=== PATIENT | female | born 1940 | race Caucasian/White ===

== ENCOUNTER 2016-10-23 15:46 | Emergency (ER) | payer OTHER ==
[~2016-10-23] VITALS: Ht 165.1 cm; Wt 60.9 kg
[~2016-10-23 15:46] MED LIST: ASCA500 PO; ATOR-24 PO; CALC600T14 PO; CYAN10005 PO; DXY100 PO; FSM70 PO; METH500T PO; METO50TA7 PO; MULT-190 PO
[2016-10-23 15:55] VITALS: TEMP 36.8; Ht 165.1 cm; Wt 60.9 kg
[2016-10-23 16:29] LABS: BASO % 0.2 %; BASO ABS # 0.02 K/uL (0-0.2); COMPLETE YES; EOS % 1.8 %; IG% 0.1 %; LYMPH % 18.9 %; LYMPH ABS # 1.62 K/uL (1.2-3.4); MEAN CELL VOLUME 96.3 fL (80-100); MEAN CORPUSCULAR HEMOGLOBIN 32.6 pg (25-34); MEAN CORPUSCULAR HGB CONC 33.8 g/dl (32-36); MEAN PLATELET VOLUME 10.1 fL (7.4-10.4); MONO % 8.4 %; NEUT % 70.6 %; PLATELET COUNT 181 K/uL (130-400); RED BLOOD COUNT 4.36 M/uL (4.2-5.4); WHITE BLOOD COUNT 8.56 K/uL (4.8-10.8)
[2016-10-23 16:48] LABS: BUN/CREATININE RATIO 28.1 (10-20); CALCIUM 9.5 mg/dl (8.5-10.1); CREATININE 0.65 mg/dl (0.60-1.20); POTASSIUM 4.1 mmol/L (3.5-5.1)
[2016-10-23] MEDS ORDERED: ASCO500T16 PO (16:49)
[2016-10-23 16:50] LABS: ALB/GLOB RATIO 1.1 (0.9-2)
[2016-10-23] MEDS ORDERED: DOCU-94 PO (16:51)
[2016-10-23] MEDS ORDERED: ASPI-232 PO (16:51)
[2016-10-23] MEDS ORDERED: SODIUM CHLORIDE 0.9% 500ML 500 ML IV STA (17:21)
[2016-10-23 18:07] LABS: URINE APPEARANCE CLEAR (CLEAR); URINE BILIRUBIN NEG (NEG); URINE COLOR YELLOW; URINE NITRITE NEG (NEG); URINE SPECIFIC GRAVITY 1.009 (1.000-1.030); UROBILINOGEN NEG (NEG); ZZUR CULT IF INDIC CLEAN CATCH NO
[2016-10-23 18:17] LABS: MANUAL MICROSCOPIC REQUIRED? NO; REVIEW REQ? NO
--- NOTE | 2016-10-23 18:46 | DIAGNOSTIC IMAGING REPORT ---
CT OF THE CERVICAL SPINE WITHOUT CONTRAST CLINICAL HISTORY: Neck pain. COMPARISON STUDY: No previous studies for comparison. TECHNIQUE: Helical axial images of the cervical spine were obtained without IV contrast. Sagittal and coronal reconstructions were viewed. FINDINGS: No acute fracture is identified. No suspicious osseous lesion is identified by CT. There is slight anterolisthesis of C3 on C4. The central canal and neural foramen are suboptimally assessed by CT. There is no evidence of severe central canal stenosis. There is mild to moderate multilevel degenerative disc disease and facet arthrosis. There is no prevertebral edema. IMPRESSION: 1. No acute cervical spine fracture or subluxation. 2. Mild to moderate multilevel degenerative disc disease and facet arthrosis of the cervical spine. Suboptimal evaluation of the central canal no evidence for severe central canal stenosis. Electronically signed by: Froylan Frank M.D. 10/23/2016 6:44 PM Dictated Date/Time: 10/23/2016 6:42 PM
[2016-10-23 20:57] VITALS: BP 173/89; PULSE 81; O2SAT 95
--- NOTE | 2016-10-24 00:22 | EMERGENCY ROOM VISIT NOTE ---
History Report prepared by Bijan: Isacc Dempsey Under the Supervision of: Dr. Pete Swenson M.D. First contact with patient: 16:52 Chief Complaint: WEAKNESS Stated Complaint: HEAVY ARMS, WEAKNESS, TIGHTNESS AROUND JAW/NECK Nursing Triage Summary: pt states she has a bad neck, she has episodes of generalized upper extremity weakness and heaviness, pt denies any pain, this episode started at 1330 History of Present Illness The patient is a 75 year old female who presents to the Emergency Room with complaints of intermittent bilateral arm weakness beginning one week prior to arrival. She describes her weakness as heaviness. The patient states she has had two episodes over the past week of bilateral arm heaviness. She notes the episodes last for 30 minutes, and her last episode occurred two hours ago while driving home. The patient denies doing anything out of the ordinary to onset her symptoms. She explains that she feels "washed out". The patient states she has a history of intermittent neck pressure in the back of her neck for 4-5 years. She notes she occasionally experiences chills and shakiness with her episodes of arm heaviness. The patient states she recently was treated for a UTI two weeks ago, in which, she finished her antibiotics a week ago. She notes she does not have a heart history other than high cholesterol, but her mother at the age of 39 from a heart attack. The patient denies seeing a provider for her bilateral arm weakness. Pt denies recent long travel, sick contact, swelling of the legs, LOC, headache, fevers, diaphoresis, visual changes, chest pain, breathing difficulties, nausea, vomiting, abdominal pain, back pain, melena, hematochezia, urinary symptoms, numbness, lymphadenopathy, rash, or other complaints. 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 Review of Systems See HPI for pertinent positives and negatives. A total of ten systems were reviewed and were otherwise negative. Past Medical & Surgical Medical Problems: (1) Asthma (2) Bronchitis (3) Cataract (4) Hyperlipidemia (5) Skin cancer of nose Family History Heart disease Social History Smoking Status: Former Smoker Marital Status: Housing Status: lives alone Occupation Status: retired Current/Historical Medications Scheduled Ascorbic Acid (Ascorbic Acid), 500 MG PO DAILY Aspirin (Aspir-81), 1 TAB PO DAILY Atorvastatin (Lipitor), 1 TAB PO DAILY Docusate Sodium (Colace), 1 CAP PO BID Metoprolol Succ (Toprol Xl) (Toprol-Xl), 1 TAB PO DAILY Ocuvite Preservision (Ocuvite Preservision), 1 TAB PO DAILY Allergies Coded Allergies: Penicillins (Unverified Allergy, Severe, UNKNOWN, 10/23/16) Physical Exam Vital Signs Date Time Temp Pulse Resp B/P Pulse Ox O2 Delivery O2 Flow Rate FiO2 10/23/16 20:57 81 18 173/89 95 10/23/16 20:33 80 14 154/71 96 Room Air 10/23/16 19:13 81 12 138/76 95 Room Air 10/23/16 17:34 85 15 163/79 97 Room Air 10/23/16 16:16 82 10/23/16 15:55 36.8 83 18 168/82 95 Room Air Physical Exam GENERAL: Awake, alert, well-appearing, in no distress HENT: Normocephalic, atraumatic. Oropharynx unremarkable. EYES: Normal conjunctiva. Sclera non-icteric. NECK: Supple. No nuchal rigidity. FROM. No JVD. RESPIRATORY: Clear to auscultation. CARDIAC: Regular rate, normal rhythm. Extremities warm and well perfused. Pulses equal. ABDOMEN: Soft, non-distended. No tenderness to palpation. No rebound or guarding. No masses. RECTAL: Deferred. MUSCULOSKELETAL: Chest examination reveals no tenderness. The back is symmetrical on inspection without obvious abnormality. There is no CVA tenderness to palpation. No joint edema. LOWER EXTREMITIES: Calves are equal size bilaterally and non-tender. No edema. No discoloration. NEURO: Normal sensorium. No sensory or motor deficits noted. SKIN: No rash or jaundice noted. Medical Decision & Procedures ER Provider Diagnostic Interpretation: CT: Radiology results as stated below per my review and radiologist interpretation CT OF THE CERVICAL SPINE WITHOUT CONTRAST CLINICAL HISTORY: Neck pain. COMPARISON STUDY: No previous studies for comparison. TECHNIQUE: Helical axial images of the cervical spine were obtained without IV contrast. Sagittal and coronal reconstructions were viewed. FINDINGS: No acute fracture is identified. No suspicious osseous lesion is identified by CT. There is slight anterolisthesis of C3 on C4. The central canal and neural foramen are suboptimally assessed by CT. There is no evidence of severe central canal stenosis. There is mild to moderate multilevel degenerative disc disease and facet arthrosis. There is no prevertebral edema. IMPRESSION: 1. No acute cervical spine fracture or subluxation. 2. Mild to moderate multilevel degenerative disc disease and facet arthrosis of the cervical spine. Suboptimal evaluation of the central canal no evidence for severe central canal stenosis. Electronically signed by: Froylan Frank M.D. 10/23/2016 6:44 PM Laboratory Results 10/23/16 16:15 Red Blood Count 4.36, Mean Corpuscular Volume 96.3, Mean Corpuscular Hemoglobin 32.6, Mean Corpuscular Hemoglobin Concent 33.8, Mean Platelet Volume 10.1, Neutrophils (%) (Auto) 70.6, Lymphocytes (%) (Auto) 18.9, Monocytes (%) (Auto) 8.4, Eosinophils (%) (Auto) 1.8, Basophils (%) (Auto) 0.2, Neutrophils # (Auto) 6.04, Lymphocytes # (Auto) 1.62, Monocytes # (Auto) 0.72, Eosinophils # (Auto) 0.15, Basophils # (Auto) 0.02 10/23/16 16:15 Test 10/23/16 16:15 10/23/16 17:36 White Blood Count 8.56 K/uL (4.8-10.8) Red Blood Count 4.36 M/uL (4.2-5.4) Hemoglobin 14.2 g/dL (12.0-16.0) Hematocrit 42.0 % (37-47) Mean Corpuscular Volume 96.3 fL (80-100) Mean Corpuscular Hemoglobin 32.6 pg (25-34) Mean Corpuscular Hemoglobin Concent 33.8 g/dl (32-36) Platelet Count 181 K/uL (130-400) Mean Platelet Volume 10.1 fL (7.4-10.4) Neutrophils (%) (Auto) 70.6 % Lymphocytes (%) (Auto) 18.9 % Monocytes (%) (Auto) 8.4 % Eosinophils (%) (Auto) 1.8 % Basophils (%) (Auto) 0.2 % Neutrophils # (Auto) 6.04 K/uL (1.4-6.5) Lymphocytes # (Auto) 1.62 K/uL (1.2-3.4) Monocytes # (Auto) 0.72 K/uL (0.11-0.59) Eosinophils # (Auto) 0.15 K/uL (0-0.5) Basophils # (Auto) 0.02 K/uL (0-0.2) RDW Standard Deviation 47.1 fL (36.4-46.3) RDW Coefficient of Variation 13.4 % (11.5-14.5) Immature Granulocyte % (Auto) 0.1 % Immature Granulocyte # (Auto) 0.01 K/uL (0.00-0.02) Anion Gap 4.0 mmol/L (3-11) Est Creatinine Clear Calc Drug Dose 66.3 ml/min Estimated GFR () 100.0 Estimated GFR (Non- 86.2 BUN/Creatinine Ratio 28.1 (10-20) Calcium Level 9.5 mg/dl (8.5-10.1) Total Bilirubin 0.4 mg/dl (0.2-1) Aspartate Amino Transf (AST/SGOT) 30 U/L (15-37) Alanine Aminotransferase (ALT/SGPT) 27 U/L (12-78) Alkaline Phosphatase 80 U/L (45-117) Troponin I < 0.015 ng/ml (0-0.045) Total Protein 7.4 gm/dl (6.4-8.2) Albumin 3.9 gm/dl (3.4-5.0) Globulin 3.5 gm/dl (2.5-4.0) Albumin/Globulin Ratio 1.1 (0.9-2) Urine Color YELLOW Urine Appearance CLEAR (CLEAR) Urine pH 5.0 (4.5-7.5) Urine Specific [place] 1.009 (1.000-1.030) Urine Protein NEG (NEG) Urine Glucose (UA) NEG (NEG) Urine Ketones NEG (NEG) Urine Occult Blood NEG (NEG) Urine Nitrite NEG (NEG) Urine Bilirubin NEG (NEG) Urine Urobilinogen NEG (NEG) Urine Leukocyte Esterase TRACE (NEG) Urine WBC (Auto) 1-5 /hpf (0-5) Urine RBC (Auto) 0-4 /hpf (0-4) Urine Hyaline Casts (Auto) 1-5 /lpf (0-5) Urine Epithelial Cells (Auto) 5-10 /lpf (0-5) Urine Bacteria (Auto) NEG (NEG) Laboratory results reviewed by me Medications Administered Medications (Trade) Dose Ordered Sig/Cheryl Route Start Time Stop Time Status Last Admin Dose Admin Sodium Chloride (Nss 500ml) 500 ml @ 999 mls/hr Q31M STAT IV 10/23/16 17:21 10/23/16 17:51 DC 10/23/16 17:33 999 MLS/HR ECG Indication: weakness Rate (beats per minute): 76 Rhythm: normal sinus Findings: no acute ischemic change, no ectopy ED Course 1715: The patient was evaluated in room A12B. A complete history and physical exam was performed. 1720: Ordered Sodium Chloride 500 ml @ 999 mls/hr IV. 1899: Reevaluated the patient at this time, and she is doing well. 2049: I reevaluated the patient. Discussed results and discharge instructions: She verbalized understanding and agreement. The patient is ready for discharge. Medical Decision Triage Nursing notes reviewed. The patient's presentation and history were concerning for neck pain, weakness, arm heaviness, and malaise. Etiologies such as cervical disc disease, dehydration, metabolic, infection, hypo/hyperglycemia, electrolyte abnormalities, cardiac sources, intracerebral event, toxicologic, neurologic, as well as others were entertained. The patient was evaluated. Clinically she was doing well. She had a nonfocal neurologic examination. Her neck examination was unremarkable as well. ECG was nonischemic. The patient never complained of any chest pain. She noted discomfort in her neck which has been on and off for several years. She had 2 recent episodes that made her more concerned. She had an unremarkable CBC and chemistry panel except for mild dehydration. The patient was hydrated. She admits to having decreased intake today but had no particular reason for this. She had an unremarkable urinalysis. Normal cardiac markers. CT imaging of her neck showed degenerative changes but no bony destruction. The patient has no fever. She is mildly hypertensive. Clinically she looks well. I discussed treatment options and reviewed the limitations for cardiac workup. As the patient is asymptomatic now and feels well and I discussed treatment in and out of the hospital. The patient prefers to be discharged to follow-up as an outpatient. If she worsens in any way she will come back to the Emergency Room for reevaluation. I did spend a significant amount of time reviewing the results as well as follow-up plans and symptoms to watch out for. I gave my usual and customary discussion regarding this issue. By the evaluation outlined above other emergent etiologies such as those listed in the differential, as well as others, were deemed relatively unlikely. The patient and significant other were informed about the findings as listed above. All questions were answered and they were pleased with the treatment. Return instructions were outlined and the patient was discharged in stable condition. The patient was referred to her PCP for follow-up Wednesday for a recheck of the current condition. The chart was completed utilizing [employer] Speech voice recognition software. Grammatical errors, random word insertions, pronoun errors, and incomplete sentences are an occasional consequence of this system due to software limitations, ambient noise, and hardware issues. Any formal questions or concerns about the content, text, or information contained within the body of this dictation should be directly addressed to the physician for clarification. Impression Primary Impression: Weakness Additional Impression: Degenerative disc disease, cervical Scribe Attestation The scribe's documentation has been prepared under my direction and personally reviewed by me in its entirety. I confirm that the note above accurately reflects all work, treatment, procedures, and medical decision making performed by me. Departure Information Dispostion Home / Self-Care Referrals No Doctor, Assigned (PCP) Forms HOME CARE DOCUMENTATION FORM, IMPORTANT VISIT INFORMATION Patient Instructions My [facility] Additional Instructions Rest and drink plenty of fluids. Tylenol: Take 1000 mg every 6 hours as needed for pain. Do not take more than 3000 mg in a 24 hour period. Warm compresses for 20 minutes at a time four times daily for 2-3 days. No heavy lifting or physical exertion until seen by family doctor on Wednesday. Call Wednesday morning for follow-up appointment. Return to the ER for severe neck pain, chest pain, weakness, headache, passing out, difficulty breathing, fevers, numbness, tingling, worsening of your condition, or as needed. Problem Qualifiers
== END 2016-10-23 20:59 | disposition home or self-care (01) ==
LOC: C.EDB 15:47 → C.EDA 20:59
DX: R53.1 Weakness (principal); M50.30 Other cervical disc degeneration, unspecified cervical region; E78.5 Hyperlipidemia, unspecified; J45.909 Unspecified asthma, uncomplicated; Z85.828 Personal history of other malignant neoplasm of skin; Z98.49 Cataract extraction status, unspecified eye; Z87.891 Personal history of nicotine dependence; Z79.82 Long term (current) use of aspirin; Z79.899 Other long term (current) drug therapy; Z88.0 Allergy status to penicillin; Z82.49 Family history of ischemic heart disease and other diseases of the circulatory system

== ENCOUNTER 2023-11-10 18:41 | Inpatient (IN) ==
[2023-11-10 19:41] LABS: Basophils # (auto) 0.02 K/uL (0.00-0.20); Basophils % (auto) 0.3 %; Eosinophils # (auto) 0.13 K/uL (0.00-0.50); Eosinophils % (auto) 1.7 %; Hematocrit (blood only) 39.2 % (37.0-47.0); Hemoglobin 13.4 g/dl (12.0-16.0); Immature Granulocytes # (auto) 0.04 K/uL (0.01-0.20); Immature Granulocytes % (auto) 0.5 %; Lymphocytes # (auto) 1.63 K/uL (1.20-3.40); Lymphocytes % (auto) 20.8 %; Mean Corpuscular Hemoglobin 32.3 pg (25.0-34.0); Mean Corpuscular Hgb Conc 34.2 g/dL (32.0-36.0); Mean Corpuscular Volume 94.5 fL (80.0-100.0); Mean Platelet Volume 9.9 fL (9.4-12.4); Monocytes # (auto) 0.89 K/uL (0.11-0.59); Monocytes % (auto) 11.4 %; Neutrophils # (auto) 5.12 K/uL (1.40-6.50); Neutrophils % (auto) 65.3 %; Platelet Count 200 K/uL (130-400); RDW Coefficient of Variation 13.7 % (11.5-14.5); RDW Standard Deviation 47.9 fL (36.4-46.3); Red Blood Count 4.15 M/uL (4.20-5.40); White Blood Count 7.83 K/ul (4.8-10.8)
[2023-11-10 19:48] LABS: Appearance Urine Cloudy (Clear); Bacteria Urine Automated None Seen (None Seen); Bilirubin Urine Negative (Negative); Blood Urine 2+ (Negative); Color Urine Yellow; Glucose Urine UA Negative (Negative); Ketones Urine Negative (Negative); Leukocyte Esterase Urine 3+ (Negative); Nitrite Urine Negative (Negative); Protein Urine Negative (Negative); Urobilinogen Urine Negative (Negative); WBC Urine Automated >50 /hpf (0-5)
[2023-11-10 19:57] LABS: Albumin Level 3.9 gm/dl (3.4-5.0); BUN Creatinine Ratio 24.6 (10-20); Bilirubin Direct 0.2 mg/dl (0-0.2); Bilirubin,Total 0.8 mg/dl (0.2-1.0); Calcium 9.3 mg/dl (8.6-10.3); Creatinine Clr Calc Pharmacy 61.6 ml/min; Est GFR (African American) 99.4 ml/min; Est GFR (Non-African American) 85.7 ml/min; Magnesium 1.8 mg/dl (1.7-2.4); Potassium 3.8 mmol/L (3.5-5.1); Total Protein 7.2 gm/dl (6.0-8.3)
[2023-11-10 20:01] LABS: Base Excess VBG 2.6 mEq/L; HCO3 VBG 27 mmol/L; Oxygen Saturation VBG 71.1 %; PCO2 VBG 41 mmHg (38-50); PO2 VBG 40 mmHg; pH VBG 7.43 (7.36-7.41)
[2023-11-10 20:17] LABS: INR 1.1 (0.9-1.1); Partial Thromboplastin Ratio 0.9; Partial Thromboplastin Time 25 Seconds (21-31); Prothrombin Time 11.5 Seconds (9.0-12.0)
--- NOTE | 2023-11-10 20:51 | CT Scan Report ---
Exam(s): CT HEAD Without Contrast EXAM: CT Head Without Intravenous Contrast CLINICAL HISTORY: Reason for exam: ams. TECHNIQUE: Axial computed tomography images of the head/brain without intravenous contrast. CTDI is 37.61 mGy and DLP is 624.41 mGy-cm. Automated exposure control was utilized for the study. A dose lowering technique was utilized adhering to the principles of ALARA. COMPARISON: No relevant prior studies available. FINDINGS: No acute intracranial hemorrhage. No midline shift or mass effect. The territorial wilburn-white matter differentiation is maintained throughout. Age-related cerebral volume loss. Periventricular and subcortical white matter hypoattenuation, consistent with chronic microangiopathy. The visualized orbits appear grossly unremarkable. The calvarium is intact. The visualized paranasal sinuses and mastoid air cells are grossly clear. IMPRESSION: No acute intracranial hemorrhage, midline shift, or mass effect. Electronically signed by: Bean Almaguer MD 11/10/23 20:50 PM
--- NOTE | 2023-11-10 21:23 | Emergency Department Note ---
History of Present Illness General Chief complaint: Head Injury, Minor Stated complaint: LIGHTHEADED, VISION PROBLEMS, HEADACHES, SPEACH Time Seen by Provider: 11/10/23 18:50 Source: patient and family (Son at bedside) History of Present Illness Provider complaint: Headache difficulty speaking 82-year-old female presents emergency department for headache and difficulty speaking. Patient's son states that over the last 2 days patient has been increasingly weak and lightheaded. Patient reports she had a headache starting 2 days ago. Son reports that the patient has had some expressive aphasia over the last 2 days lasting a few minutes to an hour and then resolving. Patient reports nausea. Son states he is concerned the patient might be dehydrated or have another UTI. Patient states she has had multiple UTIs over the last 3 months and that she just finished a course of Keflex for UTI 2 days ago. Home Medications Medication Instructions Recorded Confirmed Type albuterol sulfate 90 mcg/actuation 2 puff inhalation QID Shortness Of 06/27/18 11/10/23 History aerosol inhaler (ProAir HFA) Breath aspirin 81 mg tablet,delayed 81 mg PO HS 06/27/18 11/10/23 History release vitamins A,C,Z-vala-hldrwz 2,148 1 tab PO BID 06/27/18 11/10/23 History mcg-113 mg-45 mg-17.4 mg tablet (PreserVision AREDS) hydrochlorothiazide 12.5 mg tablet 12.5 mg PO QAM 03/09/19 11/10/23 History cholecalciferol (vitamin D3) 25 25 mcg PO QAM 04/01/21 11/10/23 History mcg (1,000 unit) capsule (Vitamin D3) faricimab-svoa 6 mg/0.05 mL 6 mg intravitreal .Q6WK 10/03/23 11/10/23 History intravitreal solution (Vabysmo) losartan 25 mg tablet 25 mg PO QAM 10/03/23 11/10/23 History metoprolol succinate 50 mg See Rx Instructions .Route .COMPLEX 10/03/23 11/10/23 History tablet,extended release 24 hr naproxen sodium 220 mg tablet 220 mg PO Q8H PRN Pain 10/03/23 11/10/23 History (Aleve) ondansetron HCl 4 mg tablet 4 mg PO Q6H PRN NAUSEA/VOMITING 10/03/23 11/10/23 History rosuvastatin 40 mg tablet 40 mg PO DAILY 10/03/23 11/10/23 History Allergies Allergy/AdvReac Type Severity Reaction Status Date / Time sulfamethoxazole Allergy Severe Nausea Verified 10/03/23 16:50 [From Bactrim] trimethoprim [From Bactrim] Allergy Severe Nausea Verified 10/03/23 16:50 Penicillins Allergy Intermediate Rash Verified 10/03/23 16:50 nitrofurantoin AdvReac Mild Nausea Verified 10/03/23 16:50 [From Macrobid] Past Med/Surg History Problem List (Updated 11/10/23 @ 21:32 by Merrill Major MD) Brain TIA (Acute) COVID-19 (Acute) Hyperlipidemia (Chronic) Asthma (Chronic) Degenerative disc disease, cervical (Acute) Weakness (Acute) Surgical History No pertinent past surgical history Family History Mother Myocardial infarction Son Stroke Social History Smoking Status: Former smoker Tobacco Type: Cigarettes Preferred Language: Algerian marital status: current occupational status: retired Feels Safe at Home: Yes Physical Exam Vital Signs Vital Signs - 24 hr 11/10/23 18:42 11/10/23 18:44 11/10/23 18:53 Temperature 36.8 C Temperature Source Temporal Artery Scan Pulse Rate 89 77 Pulse Rate [Apical] 77 Pulse Rhythm Regular Pulse Rhythm [Apical] Regular Pulse Strength [Apical] Normal Respiratory Rate 16 19 16 Respiratory Effort / Characteristics Non-Labored Respiratory Depth Normal Respiratory Pattern Regular Blood Pressure 177/89 H Blood Pressure [Left Arm] 166/89 H Blood Pressure Mean 118 Blood Pressure Mean [Left Arm] 114 Blood Pressure Position [Left Arm] Semi-fowlers Pulse Oximetry 95 94 96 Oxygen Delivery Method Room Air Room Air Room Air Sepsis Recent Fever Within 48 Hours No Sepsis New/Unexplained Change in Mental Status N/A Sepsis Action Taken by Nursing No Action Required 11/10/23 19:00 11/10/23 19:30 Temperature Temperature Source Pulse Rate 140 H 78 Pulse Rate [Apical] Pulse Rhythm Pulse Rhythm [Apical] Pulse Strength [Apical] Respiratory Rate Respiratory Effort / Characteristics Respiratory Depth Respiratory Pattern Blood Pressure Blood Pressure [Left Arm] Blood Pressure Mean Blood Pressure Mean [Left Arm] Blood Pressure Position [Left Arm] Pulse Oximetry Oxygen Delivery Method Sepsis Recent Fever Within 48 Hours Sepsis New/Unexplained Change in Mental Status Sepsis Action Taken by Nursing Physical Exam GENERAL: She is oriented to person, place, and time. She appears well-developed and well-nourished. She does not appear distressed. HENT: Exam performed. -Head: Normocephalic and atraumatic. -Right Ear: External ear normal. No mastoid erythema -Left Ear: External ear normal. No mastoid erythema -Mouth/Throat: The oropharynx is clear and moist. No trismus in the jaw. No dental abscesses or uvula swelling. No oropharyngeal exudate or tonsillar abscesses. EYES: Conjunctivae and EOM are normal. Pupils are equal, round, and reactive to light. Right eye exhibits no discharge. Left eye exhibits no discharge. No scleral icterus. NECK: Normal range of motion. Neck supple. No JVD present. No spinous process tenderness present. No carotid bruit present. No rigidity. No tracheal deviation and normal range of motion present CV: Normal rate, regular rhythm, normal heart sounds and intact distal pulses. There is no peripheral edema. Palpable radial pulses bue. PULM/CHEST: Effort normal and breath sounds normal. No respiratory distress. No stridor. She has no wheezes. She has no rales. -Chest Wall: She exhibits no tenderness. ABD: The abdomen is soft. Bowel sounds are normal. She has no distension. No mass is present. There is no tenderness. There is no rebound, no guarding, no Webster's sign and no tenderness at McBurney's point. Rovsig negative MUSC/SKEL: Normal range of motion. There is no peripheral edema, tenderness or deformity. LYMPH: No cervical adenopathy. NEURO: She is alert and oriented to person, place, and time. She has normal strength. No cranial nerve deficit or sensory deficit. Coordination and gait normal. GCS eye subscore is 4. GCS verbal subscore is 5. GCS motor subscore is 6. Cerebellar tests wnl. NIHSS 0 SKIN: Skin is warm and dry. She is not diaphoretic. PSYCH: She has a normal mood and affect. Behavior is normal. Judgment and thought content normal. Course Course 1850: The patient was evaluated in room C9. A complete history and physical exam was performed Cardiac monitoring: An order was placed for continuous cardiac monitoring. The monitor shows a rate of 80 with sinus rhythm interpreted by me 2115: Vital signs stable. Labs and imaging within normal limits. No dehydration as the patient and family are concerned. Urinalysis does not show any bacteria. CT of the head within normal limits. Patient's expressive aphasia could be due to possible TIA. Discussed with patient and family and they are amenable to inpatient observation to have further MRIs and neurology evaluation. Discussed with Dr. Fung who will evaluate the patient for admission. Medical Decision Making Laboratory Data Attestation: I reviewed the patient's lab results. 11/10/23 19:05 11/10/23 19:05 Lab Results 11/10/23 11/10/23 11/10/23 Range/Units 19:05 19:30 19:51 WBC 7.83 (4.8-10.8) K/ul RBC 4.15 L (4.20-5.40) M/uL Hgb 13.4 (12.0-16.0) g/dl Hct 39.2 (37.0-47.0) % MCV 94.5 (80.0-100.0) fL MCH 32.3 (25.0-34.0) pg MCHC 34.2 (32.0-36.0) g/dL RDW Std Deviation 47.9 H (36.4-46.3) fL RDW Coeff of Sherrill 13.7 (11.5-14.5) % Plt Count 200 (130-400) K/uL MPV 9.9 (9.4-12.4) fL Immature Gran % (Auto) 0.5 % Neut % (Auto) 65.3 % Lymph % (Auto) 20.8 % Cobb % (Auto) 11.4 % Eos % (Auto) 1.7 % Baso % (Auto) 0.3 % Neut # (Auto) 5.12 (1.40-6.50) K/uL Lymph # (Auto) 1.63 (1.20-3.40) K/uL Cobb # (Auto) 0.89 H (0.11-0.59) K/uL Eos # (Auto) 0.13 (0.00-0.50) K/uL Baso # (Auto) 0.02 (0.00-0.20) K/uL Immature Gran # (Auto) 0.04 (0.01-0.20) K/uL PT 11.5 (9.0-12.0) Seconds INR 1.1 (0.9-1.1) APTT 25 (21-31) Seconds PTT Ratio 0.9 VBG pH 7.43 H (7.36-7.41) VBG pCO2 41 (38-50) mmHg VBG pO2 40 mmHg VBG HCO3 27 mmol/L VBG O2 Saturation 71.1 % VBG Base Excess 2.6 mEq/L Sodium 135 L (136-145) mmol/L Potassium 3.8 (3.5-5.1) mmol/L Chloride 103 (98-107) mmol/L Carbon Dioxide 25 (21-32) mmol/L Anion Gap 7 (3-11) BUN 14 (6-23) mg/dl Creatinine 0.57 L (0.6-1.2) mg/dl Est Cr Clr Drug Dosing 61.6 ml/min Est GFR ( Amer) 99.4 ml/min Est GFR (Non-Af Amer) 85.7 ml/min BUN/Creatinine Ratio 24.6 H (10-20) Glucose 101 H (70-99(Fasting)) mg/dl Lactate 1.0 (0.4-2.0) mmol/L Calcium 9.3 (8.6-10.3) mg/dl Magnesium 1.8 (1.7-2.4) mg/dl Total Bilirubin 0.8 (0.2-1.0) mg/dl Direct Bilirubin 0.2 (0-0.2) mg/dl AST 24 (13-39) U/L ALT 11 (7-52) U/L Alkaline Phosphatase 61 (34-104) U/L Troponin I High Sens 8.0 (0-14) pg/ml Total Protein 7.2 (6.0-8.3) gm/dl Albumin 3.9 (3.4-5.0) gm/dl Procalcitonin < 0.02 (0-0.5) ng/ml Urine Color Yellow Urine Appearance Cloudy A (Clear) Urine pH 6.0 (4.5-7.5) Ur Specific Hooper 1.010 (1.000-1.030) Urine Protein Negative (Negative) Urine Glucose (UA) Negative (Negative) Urine Ketones Negative (Negative) Urine Blood 2+ H (Negative) Urine Nitrite Negative (Negative) Urine Bilirubin Negative (Negative) Urine Urobilinogen Negative (Negative) Ur Leukocyte Esterase 3+ H (Negative) Urine WBC (Auto) >50 H (0-5) /hpf Urine RBC (Auto) 11-20 H (0-2) /hpf U Hyaline Cast (Auto) 3-5 H (0-2) /lpf U Epithel Cells (Auto) 3-5 H (0-2) /hpf Urine Bacteria (Auto) None Seen (None Seen) SARS-CoV-2, RNA, NAAT NEGATIVE (NEGATIVE) Imaging Data Attestation: I personally reviewed and interpreted this imaging study as follows: My Impression: Chest x-ray negative. Airway clear. No pneumothorax. No consolidation. No cardiomegaly or cephalization.. No free air under the diaphragm. No fractures of the skeletal structures. Radiologist's Impression: Head CT 11/10/23 18:53 Exam(s): CT HEAD Without Contrast EXAM: CT Head Without Intravenous Contrast CLINICAL HISTORY: Reason for exam: ams. TECHNIQUE: Axial computed tomography images of the head/brain without intravenous contrast. CTDI is 37.61 mGy and DLP is 624.41 mGy-cm. Automated exposure control was utilized for the study. A dose lowering technique was utilized adhering to the principles of ALARA. COMPARISON: No relevant prior studies available. FINDINGS: No acute intracranial hemorrhage. No midline shift or mass effect. The territorial wilburn-white matter differentiation is maintained throughout. Age-related cerebral volume loss. Periventricular and subcortical white matter hypoattenuation, consistent with chronic microangiopathy. The visualized orbits appear grossly unremarkable. The calvarium is intact. The visualized paranasal sinuses and mastoid air cells are grossly clear. IMPRESSION: No acute intracranial hemorrhage, midline shift, or mass effect. Electronically signed by: Bean Almaguer MD 11/10/23 20:50 PM ECG Data Attestation: I personally reviewed and interpreted this ECG as follows: Rate (beats per minute): 82 Rhythm: + normal sinus ECG Intervals/blocks: + Normal IN and + Normal QT-c ECG ST segments: + Normal ST segments Additional Comments: QRS 76 MDM Narrative 1850: The patient was evaluated in room C9. A complete history and physical exam was performed Cardiac monitoring: An order was placed for continuous cardiac monitoring. The monitor shows a rate of 80 with sinus rhythm interpreted by me 2115: Vital signs stable. Labs and imaging within normal limits. No dehydration as the patient and family are concerned. Urinalysis does not show any bacteria. CT of the head within normal limits. Patient's expressive aphasia could be due to possible TIA. Discussed with patient and family and they are amenable to inpatient observation to have further MRIs and neurology evaluation. Discussed with Dr. Fung who will evaluate the patient for admission. Impression & Plan Brain TIA Discharge Plan Visit Data Chief Complaint: Head Injury, Minor Stated Complaint: LIGHTHEADED, VISION PROBLEMS, HEADACHES, SPEACH ED Provider: Merrill Major Discharge Problem: Brain TIA Patient Disposition: Being Evaluated by Hospitalist Forms Stand Alone Forms: [facility] Prescriptions Prescriptions: No Action aspirin 81 mg Tablet,Delayed Release (Dr/Ec) 81 mg PO HS albuterol sulfate [ProAir HFA] 90 mcg/actuation Hfa Aerosol Inhaler 2 puff INHALATION QID Rx Instructions: ordered 11/01/23 take for 16 days PreserVision AREDS [id number] Tablet 1 tab PO BID hydrochlorothiazide 12.5 mg tablet 12.5 mg PO QAM cholecalciferol (vitamin D3) [Vitamin D3] 25 mcg (1,000 unit) Capsule 25 mcg PO QAM metoprolol succinate 50 mg tablet extended release 24 hr See Rx Instructions .ROUTE .COMPLEX Rx Instructions: TAKES 50 MG QAM, THEN 25 MG QPM. ondansetron HCl 4 mg tablet 4 mg PO Q6H PRN (Reason: NAUSEA/VOMITING) naproxen sodium [Aleve] 220 mg Tablet 220 mg PO Q8H PRN (Reason: Pain) losartan 25 mg tablet 25 mg PO QAM rosuvastatin 40 mg tablet 40 mg PO DAILY Vabysmo 6 mg/0.05 mL Solution 6 mg INTRAVITREAL .Q6WK Referrals Referrals: Sussy Zhu PA-C [Primary Care Provider] -
[2023-11-10] MEDS: MAGNESIUM SULFATE / D5W 1 GM/100 ML BAG IV ONE (21:37)
[2023-11-10] MEDS: NSS + 20MEQ KCL 20 MEQ/1,000 ML BAG IV ONE (21:38)
--- NOTE | 2023-11-10 22:15 | History & Physical Report ---
Date of Service November 10, 2023 Assessment & Plan (1) Encephalopathy: Plan: Multifactorial Complicated UTI, recurrent disease, no sepsis for now Uncontrolled hypertension Rule out TIA given transient aphasia symptoms ? Possible aspirin failure ? Complicated migraine given headache symptoms valvular heart disease (moderate MR, mild TR) hyperlipidemia, patient statin currently on hold as per patient/son because they are trying to cut down on medications patient "does not need" past tobacco abuse Medical telemetry Urine CS, Ceftriaxone Neurochecks Plavix in addition to aspirin for stroke prevention for possible aspirin failure until stroke ruled out Permissive hypertension until stroke ruled out by MRI brain Additional stroke workup contingent on MRI results Update lipid profile Patient and son educated about need to resume statin Rx given CVA concerns. Patient son adamantly refusing resumption of statin Rx for patient unless MRI shows acute stroke. DVT prophylaxis. Lovenox subcu Full code Patient son requesting updates from providers. Mr. Tanner Garcia, contact #[phone]. Text document was generated using [employer] voice recognition software. It may contain grammatical or spelling errors. Kindly contact undersigned for clarification of any documentation item in question. History of Present Illness Chief Complaint: Headache, trouble finding words Primary Care Provider: Dr. Riddle History obtained from patient, family, and records. Medical history significant for valvular heart disease (moderate MR, mild TR), hypertension, hyperlipidemia, migraine, recurrent UTIs, past tobacco abuse. Patient seen at [facility] ER last month for headache, lethargy, feeling off balance, lightheadedness symptoms. CT head no acute pathology. Patient discharged on Keflex course for UTI. Patient told to hold off on HCTZ due to lightheaded symptoms on follow-up at PCP's office a week later. Worsening symptoms the last 3 days with intermittent word finding difficulty, new as per son. Transient confusion at home. Denies abdominal pain, flank pain, hematuria, fever, chills. Patient compliant with home aspirin Rx. Patient brought to ER by son for further evaluation. Highest SBP of 160s documented at the ER. Word finding difficulty currently resolved as per son. 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 Allergies Allergy/AdvReac Type Severity Reaction Status Date / Time sulfamethoxazole Allergy Severe Nausea Verified 11/10/23 22:34 [From Bactrim] trimethoprim [From Bactrim] Allergy Severe Nausea Verified 11/10/23 22:34 Penicillins Allergy Intermediate Rash Verified 11/10/23 22:34 nitrofurantoin AdvReac Mild Nausea Verified 11/10/23 22:34 [From Macrobid] Home Medications Medication Instructions Recorded Confirmed Type albuterol sulfate 90 mcg/actuation 2 puff inhalation QID Shortness Of 06/27/18 11/10/23 History aerosol inhaler (ProAir HFA) Breath aspirin 81 mg tablet,delayed 81 mg PO HS 06/27/18 11/10/23 History release vitamins A,C,K-cjym-wjttdw 2,148 1 tab PO BID 06/27/18 11/10/23 History mcg-113 mg-45 mg-17.4 mg tablet (PreserVision AREDS) hydrochlorothiazide 12.5 mg tablet 12.5 mg PO .ON HOLD CURRENTLY 03/09/19 11/10/23 History cholecalciferol (vitamin D3) 25 25 mcg PO QAM 04/01/21 11/10/23 History mcg (1,000 unit) capsule (Vitamin D3) faricimab-svoa 6 mg/0.05 mL 6 mg intravitreal .Q6WK 10/03/23 11/10/23 History intravitreal solution (Vabysmo) losartan 25 mg tablet 25 mg PO QAM 10/03/23 11/10/23 History metoprolol succinate 50 mg See Rx Instructions .Route .COMPLEX 10/03/23 11/10/23 History tablet,extended release 24 hr naproxen sodium 220 mg tablet 220 mg PO Q8H PRN Pain 10/03/23 11/10/23 History (Aleve) ondansetron HCl 4 mg tablet 4 mg PO Q6H PRN NAUSEA/VOMITING 10/03/23 11/10/23 History rosuvastatin 40 mg tablet 40 mg PO .CURRENTLY ON HOLD 10/03/23 11/10/23 History Past Med/Surg History Problem List (Updated 11/11/23 @ 08:08 by Bernard Caruso MD) Encephalopathy Brain TIA (Acute) COVID-19 (Acute) Hyperlipidemia (Chronic) Asthma (Chronic) Degenerative disc disease, cervical (Acute) Weakness (Acute) Surgical History No pertinent past surgical history Family History Mother Myocardial infarction Son Stroke Social History Smoking Status: Former smoker Tobacco Type: Cigarettes Second Hand Exposure: No; Do You Dip or Chew Tobacco: No; Tobacco Cessation Education Requested by Patient: No Hx Alcohol Use: Yes Hx Substance Use: No Preferred Language: Kiswahili Communication Ability: Effective Tube Builder Required: No Beliefs That Will Affect Care: None marital status: Current Living Situation: Alone Current Living Situation Comment: [employer] current occupational status: retired Other Information That Helps Us Care for You: No Feels Safe at Home: Yes Safety Concerns: Feels Safe At This Time Assistive Devices: Walker Review of Systems Review of Systems: As per HPI, all other systems reviewed and negative Physical Exam Physical Exam: GENERAL: Comfortable, pleasant, looks younger for stated age, no respiratory distress SKIN: Normal color, warm HEENT: [place] palpebral conjunctivae, no ptosis, dry buccal mucosa NECK : Supple, no tenderness CHEST : Decreased breath sounds, no tenderness HEART : RRR, systolic murmur ABDOMEN: no distention, nontender EXTREMITIES : No LE swelling/tenderness, no other conspicuous deformities noted NEUROLOGIC : Coherent, no facial asymmetry, gait and stance not assessed Results & Data Results & Data Vital Signs (Past 12 Hours) Vital Signs Temp Pulse Pulse Resp BP BP Pulse Ox 11/10/23 21:40 83 21 95 11/10/23 21:30 159/80 H 11/10/23 21:30 82 18 11/10/23 21:20 80 22 11/10/23 21:16 158/94 H 11/10/23 21:16 84 21 11/10/23 21:10 91 H 18 11/10/23 21:07 182/113 H 11/10/23 21:07 105 H 13 94 11/10/23 21:00 165/84 H 11/10/23 21:00 86 16 94 11/10/23 20:50 82 15 95 11/10/23 20:45 158/86 H 11/10/23 20:45 81 23 95 11/10/23 20:40 85 19 95 11/10/23 20:30 163/84 H 11/10/23 20:30 82 18 95 11/10/23 20:20 82 23 95 11/10/23 20:15 163/86 H 11/10/23 20:15 82 16 94 11/10/23 20:10 81 19 93 11/10/23 20:00 161/87 H 11/10/23 20:00 81 15 95 11/10/23 19:30 78 11/10/23 19:00 140 H 11/10/23 18:53 77 16 96 11/10/23 18:44 36.8 C 89 19 177/89 H 94 11/10/23 18:42 77 16 166/89 H 95 O2 Del Method 11/10/23 21:40 11/10/23 21:30 11/10/23 21:30 11/10/23 21:20 11/10/23 21:16 11/10/23 21:16 11/10/23 21:10 11/10/23 21:07 11/10/23 21:07 11/10/23 21:00 11/10/23 21:00 11/10/23 20:50 11/10/23 20:45 11/10/23 20:45 11/10/23 20:40 11/10/23 20:30 11/10/23 20:30 11/10/23 20:20 11/10/23 20:15 11/10/23 20:15 11/10/23 20:10 11/10/23 20:00 11/10/23 20:00 11/10/23 19:30 11/10/23 19:00 11/10/23 18:53 Room Air 11/10/23 18:44 Room Air 11/10/23 18:42 Room Air Laboratory Results Laboratory Results WBC 7.83 K/ul (4.8-10.8) 11/10/23 19:05 RBC 4.15 M/uL (4.20-5.40) L 11/10/23 19:05 Hgb 13.4 g/dl (12.0-16.0) 11/10/23 19:05 Hct 39.2 % (37.0-47.0) 11/10/23 19:05 MCV 94.5 fL (80.0-100.0) 11/10/23 19:05 MCH 32.3 pg (25.0-34.0) 11/10/23 19:05 MCHC 34.2 g/dL (32.0-36.0) 11/10/23 19:05 RDW Std Deviation 47.9 fL (36.4-46.3) H 11/10/23 19:05 RDW Coeff of Sherrill 13.7 % (11.5-14.5) 11/10/23 19:05 Plt Count 200 K/uL (130-400) 11/10/23 19:05 MPV 9.9 fL (9.4-12.4) 11/10/23 19:05 Immature Gran % (Auto) 0.5 % 11/10/23 19:05 Neut % (Auto) 65.3 % 11/10/23 19:05 Lymph % (Auto) 20.8 % 11/10/23 19:05 [place] % (Auto) 11.4 % 11/10/23 19:05 Eos % (Auto) 1.7 % 11/10/23 19:05 Baso % (Auto) 0.3 % 11/10/23 19:05 Neut # (Auto) 5.12 K/uL (1.40-6.50) 11/10/23 19:05 Lymph # (Auto) 1.63 K/uL (1.20-3.40) 11/10/23 19:05 [place] # (Auto) 0.89 K/uL (0.11-0.59) H 11/10/23 19:05 Eos # (Auto) 0.13 K/uL (0.00-0.50) 11/10/23 19:05 Baso # (Auto) 0.02 K/uL (0.00-0.20) 11/10/23 19:05 Immature Gran # (Auto) 0.04 K/uL (0.01-0.20) 11/10/23 19:05 PT 11.5 Seconds (9.0-12.0) 11/10/23 19:05 INR 1.1 (0.9-1.1) 11/10/23 19:05 APTT 25 Seconds (21-31) 11/10/23 19:05 PTT Ratio 0.9 11/10/23 19:05 VBG pH 7.43 (7.36-7.41) H 11/10/23 19:51 VBG pCO2 41 mmHg (38-50) 11/10/23 19:51 VBG pO2 40 mmHg 11/10/23 19:51 VBG HCO3 27 mmol/L 11/10/23 19:51 VBG O2 Saturation 71.1 % 11/10/23 19:51 VBG Base Excess 2.6 mEq/L 11/10/23 19:51 Sodium 135 mmol/L (136-145) L 11/10/23 19:05 Potassium 3.8 mmol/L (3.5-5.1) 11/10/23 19:05 Chloride 103 mmol/L (98-107) 11/10/23 19:05 Carbon Dioxide 25 mmol/L (21-32) 11/10/23 19:05 Anion Gap 7 (3-11) 11/10/23 19:05 BUN 14 mg/dl (6-23) 11/10/23 19:05 Creatinine 0.57 mg/dl (0.6-1.2) L 11/10/23 19:05 Est Cr Clr Drug Dosing 61.6 ml/min 11/10/23 19:05 Est GFR ( Amer) 99.4 ml/min 11/10/23 19:05 Est GFR (Non-Af Amer) 85.7 ml/min 11/10/23 19:05 BUN/Creatinine Ratio 24.6 (10-20) H 11/10/23 19:05 Glucose 101 mg/dl (70-99(Fasting)) H 11/10/23 19:05 Lactate 1.0 mmol/L (0.4-2.0) 11/10/23 19:05 Calcium 9.3 mg/dl (8.6-10.3) 11/10/23 19:05 Magnesium 1.8 mg/dl (1.7-2.4) 11/10/23 19:05 Total Bilirubin 0.8 mg/dl (0.2-1.0) 11/10/23 19:05 Direct Bilirubin 0.2 mg/dl (0-0.2) 11/10/23 19:05 AST 24 U/L (13-39) 11/10/23 19:05 ALT 11 U/L (7-52) 11/10/23 19:05 Alkaline Phosphatase 61 U/L (34-104) 11/10/23 19:05 Troponin I High Sens 8.0 pg/ml (0-14) 11/10/23 19:05 Total Protein 7.2 gm/dl (6.0-8.3) 11/10/23 19:05 Albumin 3.9 gm/dl (3.4-5.0) 11/10/23 19:05 Procalcitonin < 0.02 ng/ml (0-0.5) 11/10/23 19:05 Urine Color Yellow 11/10/23 19:05 Urine Appearance Cloudy (Clear) A 11/10/23 19:05 Urine pH 6.0 (4.5-7.5) 11/10/23 19:05 Ur Specific [place] 1.010 (1.000-1.030) 11/10/23 19:05 Urine Protein Negative (Negative) 11/10/23 19:05 Urine Glucose (UA) Negative (Negative) 11/10/23 19:05 Urine Ketones Negative (Negative) 11/10/23 19:05 Urine Blood 2+ (Negative) H 11/10/23 19:05 Urine Nitrite Negative (Negative) 11/10/23 19:05 Urine Bilirubin Negative (Negative) 11/10/23 19:05 Urine Urobilinogen Negative (Negative) 11/10/23 19:05 Ur Leukocyte Esterase 3+ (Negative) H 11/10/23 19:05 Urine WBC (Auto) >50 /hpf (0-5) H 11/10/23 19:05 Urine RBC (Auto) 11-20 /hpf (0-2) H 11/10/23 19:05 U Hyaline Cast (Auto) 3-5 /lpf (0-2) H 11/10/23 19:05 U Epithel Cells (Auto) 3-5 /hpf (0-2) H 11/10/23 19:05 Urine Bacteria (Auto) None Seen (None Seen) 11/10/23 19:05 SARS-CoV-2, RNA, NAAT NEGATIVE (NEGATIVE) 11/10/23 19:[address] 11/10/23 18:53 Exam(s): CT HEAD Without Contrast EXAM: CT Head Without Intravenous Contrast CLINICAL HISTORY: Reason for exam: ams. TECHNIQUE: Axial computed tomography images of the head/brain without intravenous contrast. CTDI is 37.61 mGy and DLP is 624.41 mGy-cm. Automated exposure control was utilized for the study. A dose lowering technique was utilized adhering to the principles of ALARA. COMPARISON: No relevant prior studies available. FINDINGS: No acute intracranial hemorrhage. No midline shift or mass effect. The territorial wilburn-white matter differentiation is maintained throughout. Age-related cerebral volume loss. Periventricular and subcortical white matter hypoattenuation, consistent with chronic microangiopathy. The visualized orbits appear grossly unremarkable. The calvarium is intact. The visualized paranasal sinuses and mastoid air cells are grossly clear. IMPRESSION: No acute intracranial hemorrhage, midline shift, or mass effect. Electronically signed by: Bean Almaguer MD 11/10/23 20:50 PM Diagnostic Findings EKG as per my interpretation : Rate 80, NSR, normal axis, no ischemia
[2023-11-10] MEDS ORDERED: PHARMACIST DISCHARGE MED REC CONSULT PRN (22:19)
[2023-11-10] MEDS ORDERED: PROMETHAZINE HCL 6.25 MG in SODIUM CHLORIDE 0.9% 50 ML IV PRN (22:21)
[2023-11-10] MEDS ORDERED: ACETAMINOPHEN 325 MG TAB PO PRN (23:16)
[2023-11-11] MEDS: cefTRIAXone SODIUM 2,000 MG/50 ML BAG IV STA (00:29)
[2023-11-11] MEDS: CLOPIDOGREL BISULFATE 75 MG TAB PO ONE (02:12)
--- NOTE | 2023-11-11 02:18 | Magnetic Resonance Report ---
Exam(s): MRI HEAD Without Contrast EXAM: MR Head Without Intravenous Contrast CLINICAL HISTORY: Reason for exam: tia. TECHNIQUE: Magnetic resonance images of the head/brain without intravenous contrast in multiple planes. COMPARISON: Comparison made to prior head CT from November 10, 2023. FINDINGS: Brain: Mild nonspecific white matter changes. The flow voids at the base of the brain are intact. No mass. No hemorrhage. No acute infarct. Ventricles: Mild ventricular megaly. Bones/joints: Unremarkable. No acute fracture. Sinuses: Unremarkable as visualized. No acute sinusitis. Mastoid air cells: Unremarkable as visualized. No mastoid effusion. Orbits: Bilateral lens replacements. IMPRESSION: No evidence of acute intracranial pathology. Electronically signed by: Inessa Peterson MD 11/11/23 02:17 AM
--- NOTE | 2023-11-11 02:20 | Magnetic Resonance Report ---
Exam(s): MRA HEAD Without Contrast EXAM: MR Angiography Head Without Intravenous Contrast CLINICAL HISTORY: Reason for exam: tia. TECHNIQUE: Magnetic resonance angiography images of the head without intravenous contrast. COMPARISON: No relevant prior studies available. FINDINGS: Right internal carotid artery: No acute findings. Intracranial segment is patent with no significant stenosis. No aneurysm. Right anterior cerebral artery: Unremarkable. No occlusion or significant stenosis. No aneurysm. Right middle cerebral artery: Unremarkable. No occlusion or significant stenosis. No aneurysm. Right posterior cerebral artery: Unremarkable. No occlusion or significant stenosis. No aneurysm. Right vertebral artery: Unremarkable as visualized. Left internal carotid artery: No acute findings. Intracranial segment is patent with no significant stenosis. No aneurysm. Left anterior cerebral artery: Unremarkable. No occlusion or significant stenosis. No aneurysm. Left middle cerebral artery: Unremarkable. No occlusion or significant stenosis. No aneurysm. Left posterior cerebral artery: Unremarkable. No occlusion or significant stenosis. No aneurysm. Left vertebral artery: Unremarkable as visualized. Basilar artery: Unremarkable. No occlusion or significant stenosis. No aneurysm. IMPRESSION: Negative MRA of the brain. Electronically signed by: Inessa Peterson MD 11/11/23 02:19 AM
[2023-11-11 04:43] LABS: Basophils # (auto) 0.03 K/uL (0.00-0.20); Basophils % (auto) 0.4 %; Eosinophils # (auto) 0.22 K/uL (0.00-0.50); Eosinophils % (auto) 2.6 %; Hematocrit (blood only) 36.9 % (37.0-47.0); Hemoglobin 12.4 g/dl (12.0-16.0); Immature Granulocytes # (auto) 0.03 K/uL (0.01-0.20); Immature Granulocytes % (auto) 0.4 %; Lymphocytes # (auto) 1.58 K/uL (1.20-3.40); Lymphocytes % (auto) 18.5 %; Mean Corpuscular Hemoglobin 31.4 pg (25.0-34.0); Mean Corpuscular Hgb Conc 33.6 g/dL (32.0-36.0); Mean Corpuscular Volume 93.4 fL (80.0-100.0); Monocytes # (auto) 0.88 K/uL (0.11-0.59); Monocytes % (auto) 10.3 %; Neutrophils # (auto) 5.79 K/uL (1.40-6.50); Neutrophils % (auto) 67.8 %; Platelet Count 158 K/uL (130-400); RDW Coefficient of Variation 13.4 % (11.5-14.5); Red Blood Count 3.95 M/uL (4.20-5.40); White Blood Count 8.53 K/ul (4.8-10.8)
[2023-11-11 04:55] LABS: BUN Creatinine Ratio 23.4 (10-20); Calcium 8.8 mg/dl (8.6-10.3); Chol HDL Ratio 3.7 (0-5); Creatinine Clr Calc Pharmacy 74.7 ml/min; Est GFR (African American) 105.9 ml/min; Est GFR (Non-African American) 91.3 ml/min; Potassium 3.7 mmol/L (3.5-5.1)
--- NOTE | 2023-11-11 07:03 | XRay Report ---
XR chest 1V portable CLINICAL HISTORY: Sepsis TECHNIQUE: Single frontal radiograph of the chest was obtained. Comparison: Comparison is made to chest radiograph 07/24/2021 FINDINGS: No lines and tubes are seen. Cardiomegaly is noted. Reticular interstitial opacities are seen. Left l eleanor base airspace opacity is noted. No evidence of pleural effusion or pneumothorax. IMPRESSION: Left lung base airspace opacity. This may represent atelectasis, pneumonia, and/or aspiration. ACT 112: Negative or not required by law. Electronically signed by: Carloz Cobos M.D. 11/11/2023 7:01 AM
--- NOTE | 2023-11-11 07:57 | Ultrasound Report ---
BILATERAL CAROTID DOPPLER STUDY HISTORY: tia COMPARISON: None. TECHNIQUE: Real-time, grayscale, and color Doppler sonography of the carotid arteries was performed. Imaging reviewed in the transverse and longitudinal planes. All measurements were calculated based on NASCET criteria. FINDINGS: Antegrade flow is seen in the bilateral vertebral arteries. Mild to moderate calcified plaque within the bilateral carotid bifurcations. The peak systolic velocity within the right ICA is 73 cm/s. The right systolic ratio is 1.1. The peak systolic velocity within the left ICA is 98 cm/s. The left systolic ratio is 1.4. IMPRESSION: No hemodynamically significant stenosis seen within the carotid arteries. ACT 112: Negative or not required by law. Electronically signed by: Hemant Jay M.D. 11/11/2023 7:56 AM
--- NOTE | 2023-11-11 08:02 | Electrocardiogram Report ---
Test Reason : Blood Pressure : / mmHG Vent. Rate : 082 BPM Atrial Rate : 082 BPM P-R Int : 176 ms QRS Dur : 076 ms QT Int : 364 ms P-R-T Axes : 068 035 071 degrees QTc Int : 425 ms Normal sinus rhythm Normal ECG When compared with ECG of 03-OCT-2023 15:43, No significant change was found Confirmed by Mina Davis ([id number]) on 11/11/2023 8:01:34 AM Referred By: REFERRED SELF Confirmed By:Josue Davis
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
--- NOTE | 2023-11-11 11:00 | CT Scan Report ---
CT chest diagnostic wo con CT DOSE: 207.54 mGy.cm CLINICAL HISTORY: 82 years-old Female with r/o pneumonia/aspiration, f/u chest xray. Acute shortness of breath with possible aspiration TECHNIQUE: Multiaxial CT images of the chest were performed without contrast. A dose lowering techni que was utilized adhering to the principles of ALARA. COMPARISON: Chest radiograph 11/10/2023 FINDINGS: Heart is upper limits of normal in size. Mitral and aortic annular and coronary arterial ca lcifications. There is descending thoracic aortic tortuosity. There is prominent calcified plaque at the origin of the celiac trunk and superior mesenteric arteries. While nonspecific mediastinal lympha denopathy with subcarinal lymph node measuring up to 1.6 x 1.2 cm. Emphysema with areas of chronic pleural parenchymal scarring and mild traction bronchiectasis. Bronch ial wall thickening with areas of mucous plugging. No pneumothorax, pleural effusion or overt pulmona ry edema. Scattered bilateral tree in bud nodules. No suspicious pulmonary nodules or masses. Unremar kable soft tissues. No acute fracture. Partially imaged air and fluid-filled 8 cm structure within th e abdominal right upper quadrant extending into the doug hepatis suggestive of a loop of bowel which contain several air filled diverticula. Probable cysts of the left hepatic lobe, 11 mm. Indeterminat e ill-defined isodense 11 mm right hepatic lobe lesion on image 58 series 2. Unremarkable soft tissue s. There is a subacute appearing nondisplaced partially united fracture involving the upper third of the sternal body. IMPRESSION: 1. No pleural effusion or airspace consolidation to suggest pneumonia. 2. Emphysema with chronic fibrosis and bronchiectasis. 3. Probable bronchitis with areas of multifocal mucus plugging and scattered tree-in-bud nodules sugg estive of an infectious or inflammatory bronchiolitis. 4. Mild mediastinal lymphadenopathy, likely reactive. 5. Air and fluid-filled structure within the abdominal right upper quadrant/doug hepatis with air-fi lled diverticula suggestive of a partially imaged loop of bowel. 6. Healing subacute displaced sternal fracture. ACT 112: Negative or not required by law. Electronically signed by: Mathew Bustos M.D. 11/11/2023 10:59 AM
[2023-11-11] MEDS: ENOXAPARIN INJ 30 MG/0.3 ML SYR SQ SCH (11:16)
[2023-11-11] MEDS: METOPROLOL SUCC 25MG EXT REL TAB PO SCH (11:16)
[2023-11-11] MEDS: CLOPIDOGREL BISULFATE 75 MG TAB PO SCH (11:31)
[2023-11-11] MEDS: cefTRIAXone SODIUM 2,000 MG/50 ML BAG IV SCH (20:32)
[2023-11-11] MEDS: ASPIRIN 81 MG ECTAB PO SCH (20:32)
--- OUTSIDE RECORDS SUMMARY | 2023-11-12 03:49 | External Medical Summary | Summary of Care ---
Author Name Unknown Organization [facility] Address [address] [place] [address] Phone [phone] Care Team Providers Care Advisory Application Developer Name Role Phone Seun Riddle DO Primary Care Provider Reason for Visit * Reason Onset Date Comments Order Request 11/05/2023 Encounter Details Date Type Department Care Team (Late st Contact Info) Description 11/05/2023 Telephone Family Practice [facility] [address] [facility] [place] [address] Seun Riddle DO [address] [place] [address] Order Request Allergies Active Allergy Reactions Criticality Noted Date Comments Sulfamethoxazole-Trimethoprim 2019 nausea Nitrofurantoin 2021 nausea Penicillins 03/23/2000 rash Trimethoprim High 04/01/2021 Other reaction(s): Nausea documented as of this encounter (statuses as of 11/09/2023) Medications Medication Sig Dispensed Refills Start Date End Date Status ASPIRIN 81 MG PO TABS one tab by mouth daily 34 5 06/30/2005 Active vitamin c (ASCORBIC ACID) 500 MG Tablet Take 1 Tablet by mouth in the morning. 0 Active Cholecalciferol (VITAMIN D-3) 25 MCG (1000 UT) Capsule Take 1 Capsule by mouth in the morning. 0 Active PreserVision AREDS 2+Multi Vit Oral Capsule 0 Active Losartan Potassium 25 MG Oral Tablet (Cozaar)Indications: HTN, goal below 140/90 take 1 tablet by mouth every morning 90 Tablet 3 11/25/2022 Active Naproxen Sodium 220 MG Oral Tablet as needed. 0 Active Rosuvastatin Calcium 40 MG Oral Tablet (Crestor) Take 1 Tablet by mouth in the morning. 100 Tablet 3 04/01/2023 Active hydroCHLOROthiazide 12.5 MG Oral Tablet (Hydrodiuril) take 1 tablet by mouth once daily 90 Tablet 1 05/27/2023 Active Ondansetron HCl 4 MG Oral TabletIndications:Na usea without vomiting Take 1 Tablet by mouth every 6 hours as needed for Nausea. 30 Tablet 5 07/21/2023 Active Metoprolol Succinate ER 50 MG Oral Tablet Extended Release 24 Hour (Toprol XL) Take one tablet by mouth daily in the morning and one half tablet daily in the evening. 135 Tablet 3 08/26/2023 Active Albuterol Sulfate HFA 108 (90 Base) MCG/ACT Inhalation Aerosol SolutionIndications: Bronchospasm, exercise-induced INHALE 2 PUFFS BY MOUTH FOUR TIMES A DAY 18 g 3 11/01/2023 Active Hospital, Clinic, or Other Facility Administered Medication Ordered Dose Route Frequency Start Date End Date Status Aflibercept (Eylea) intraviteal prefilled syringe 2 mgIndications:Exudative age-related macular degeneration of right eye with active choroidal neovascularization (HCC) 2 mg IZ PRN 01/21/2023 01/21/2024 Active ROPivacaine (Naropin) inj 1.5 mgIndications:Exudative age-related macular degeneration of right eye with active choroidal neovascularization (HCC) 1.5 mg IJ PRN 01/21/2023 01/21/2024 Active Faricimab-svoa (Vabysmo) intravitreal inj 6 mgIndications:Exudative age-related macular degeneration of right eye with active choroidal neovascularization (HCC) 6 mg IZ PRN 07/08/2023 07/07/2024 Active documented as of this encounter (statuses as of 11/09/2023) Active Problems Problem Noted Date Diagnosed Date Spinal enthesopathy, cervical region 07/14/2023 Bilateral nonexudative age-related macular degen eration 05/19/2023 Degenerative disc disease, cervical 09/09/2022 Hyperlipidemia 09/09/2022 History of 2019 novel coronavirus disease (COVID -19) 06/10/2022 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 Increased risk for Familial hypercholesterolemia (FH). Please click the link below into your browser for a brief summary of current clinical management recommendations for Familial Hypercholesterolemia. 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 Exudative macular degeneration 06/08/2008 Overview: Dr Fofana No advance directive on file 03/15/2006 Overview: no Osteoporosis 03/15/2006 HTN, goal below 140/90 06/29/2003 documented as of this encounter (statuses as of 11/09/2023) Resolved Problems Problem Noted Date Diagnosed Date Resolved Date Spinal enthesopathy, cervical region 04/12/2023 05/19/2023 Bronchospasm, exercise-induced 09/09/2021 11/16/2022 Migraine with aura and witho ut status migrainosus, not intractable 06/10/2015 06/29/2017 Overview: No pain just aura, lasts about 20 minutes Cervicalgia 01/16/2012 09/02/2018 Spasm of muscle 01/16/2012 06/29/2017 Asthma with severity to be determined 12/19/2009 06/29/2017 Overview: Per Asthma Taxonomy ICD-10 update of inactive term Asthma, allergic 12/15/2004 12/19/2009 Palpitations 07/08/2002 06/29/2017 ACUTE URI NOS 07/08/2002 09/02/2006 Menopause 07/08/2002 06/23/2018 Other psoriasis 01/28/2002 11/16/2022 Need for prophylactic hormon e replacement therapy (postmenopausal) 11/13/2013 Mixed dyslipidemia 9 Overview: Per Lipid Taxonomy. Allergic rhinitis 09/02/2018 Lyme disease 01/16/2012 documented as of this encounter (statuses as of 11/09/2023) Immunizations Name Administration Dates Next Due COVID-19 mRNA, LNP-s, No Pre serve, 2-Dose Series (Pixtr) 10/01/2021,04/07/2021,09/14/2020,07/30 COVID-19, LNP-s, No Preserve , Yimi-sucrose, Ages 12+ (Pfizer) 04/04/2022 H1N1 2009 Influenza, IM 07/27/2009 PPD 06/30/2013, 2,08/02/2009,06/28,06/30/2005,06/29/2003,07/11/19 02 07/11/2002 Pneumococcal Conjugate Vacc, 13 Valent (Prevnar) 05/21/2014 Pneumococcal Polysaccharide PPV23 (Pneumovax) 05/05/2006 Season Influenza, Quad, PF, Adjuvanted, 65+ Yrs, IM (FLUAD) 03/14/2020 Seasonal Influenza, PF, 6 M & above, IM , (FluLaval or Fluzone) 03/15/2018,04/05/2017 Seasonal Influenza, Quadriva lent Hd (Fluzone Hd) 03/24/2023,04/13/2022,03/11/2021 Seasonal Influenza, Quadriva lent, No Preserve, IM 04/14/2016,06/10/2015 Seasonal Influenza, Split, I IV3, With Preserve, Inj 05/21/2014,03/11/2013,04/22/2012,03/28,03/28/2010,05/22/2009,05/02/20 08,04/04/2007,05/05/2006,04/11/2003,1 ,05/31/2001 Seasonal Influenza, Trivalen t, Adjuvanted, 65+ yrs 03/15/2019 TD - Tetanus/Diptheria (ADULT) 06/30/2005 TD, Preservative Free 06/30/2005 TDAP (age 10 and older)(Boostrix) 06/30/2013 Varicella Zoster Vaccine (Adult) 08/02/2009 Zoster Vaccine Recombinant (Shingrix) 02/15/2020 ,08/24/2019,08/02/2009 documented as of this encounter Social History Tobacco Use Types Packs/Day Years Used Date Smoking Tobacco: Former Cigarettes 0.5 40 0 07/06/1973 - 07/06/2013 Smokeless Tobacco: Never Comments:1 pk per week Alcohol Use Standard Drinks/Week Comments Yes 0 (1 standard drink = 0.6 oz pur e alcohol) rare PHQ-2 Answer Date Recorded PHQ Adult Total Score 0 05/18/2022 Sex and Gender Information Value Date Recorded Sex Assigned at Not on file Gender Identity Not on file Sexual Orientation Not on file Job Start Date Occupation Industry Not on file Not on file Not on file documented as of this encounter Miscellaneous Notes * Telephone Encounter - Nuha Lucas OSA - 11/09/2023 2:30 PM EDT Patient has been notified of the message. Patient has no further questions. * Telephone Encounter - Sussy Zhu PA-C - 11/08/2023 6:57 PM EDT She needs to be seen prior to ordering an MRIl Not usually the imaging study recommended. * Telephone Encounter - Mery Dubose OSA - 11/08/2023 4:55 PM EDT Pt calling in regards of the request for her MRI. * Telephone Encounter - Melissa Quintana LPN - 11/08/2023 12:56 PM EDT This was sent to the incorrect nurse pool, please send to the correct pool. Please advise, would you recommend patient be seen before taking this step? * Telephone Encounter - Denise Villar OSA - 11/05/2023 4:48 PM EDT An order was requested for this patient. Name of Requesting Provider: Dr. Riddle Order Requested: MRI Diagnosis/Reason for Request: Pt wants to know why she has chronic UTI's and patient not feeling herself If order request is for Mammogram: Is the patient having any breast symptoms? N/A Is there a chance of ? N/A Has the patient had any breast problems in the past? NA What location AND department does the patient wish to have their order completed at? [facility] Fax Number, if applicable: N/a If the caller is not a current patient, please advise the patient to call their current PCP to havethe order's prior to being seen in our office. The patient was informed that our providers would not order anything (medication, labs, etc.) prior to being seen. documented in this encounter Plan of Treatment Upcoming Encounters Date Type Department Care Team (Late st Contact Info) Description 11/17/2023 11:20 AM EDT Office Visit Family Practice [facility] [address] [facility] [place] [address] Sussy Zhu PA-C [address] [facility] [place] [address] 11/30/2023 10:30 AM EDT Office Visit Ophthalmology, [facility] [address] [place] [address] Mina Christiansen, [address] [place] [address] 12/29/2023 2:30 PM EDT Office Visit Gynecology/Obstetrics [facility] [address] [place] [address] Ny Mccracken CRNP [address] [place] [address] 03/16/2024 3:45 PM EDT [facility] [address] [place] [address] Qian Dorman MD [address] [place] [address] 07/05/2024 1:00 PM EST Office Visit Gynecology/Obstetrics [facility] [address] [place] [address] Susan Wade CRNP [address] [place] [address] Health Maintenance Due Date Last Done Comments DXA Scan 04/30/2016 04/30/2014, 03/29, 04/18/2012, Additional history exists COVID-19 Vaccine ( season) 2023 04/04/2022, 04/04/2022, 10/01/2021, Additional history exists Depression Screening 05/18/2023 05/18/2022, 06/29/2017 (Discussed) DTaP,Tdap,and Td Vaccines (2 - Td or Tdap) 06/30/2023 06/30/2013, 06/30/2005, 06/30/2005 GFR 03/30/2024 03/30/2023, 08/27, 08/14/2022, Additional history exists Albumin/Creatinine Ratio 09/11/2024 09/11/2021 VITAMIN D LEVEL ONCE IN A LIFETIME-USE SMARTSET# 63828 Completed 03/15/2006 Pneumococcal Vaccine: 65+ Years Completed 05/21/2014, 05/05/2006 *BISPHONATE OR OTHER ACCEPTABLE MEDICATION NEEDED FOR OSTEOPOROSIS (REFER TO SMARTSET #1146) Addressed 06/29/2017 (Refused) Overridden wi th the intention of not completing the topic Zoster Vaccines Completed 02/15/2020, 07/30, 08/02/2009, Additional history exists Influenza Vaccine (FLU shot) Completed 03/24/2023, 04/13/2022, 03/11/2021, Additional history exists GARDASIL-HPV IMMUNIZATION SERIES Aged Out No longer eligible based on patient's age to complete this topic Hepatitis B Aged Out No longer eligi ble based on patient's age to complete this topic MENINGOCOCCAL (MENACTRA/MENVEO) Aged Out No longer eligible based on patient's age to complete this topic documented as of this encounter Medical Devices Implanted Type Area Haulage Boss Device Identifier Shelf Expiration Date Model / Serial / Lot Lens 23.5 M160l - [id number] - [id number] Implanted:Qty: 1 on 10/03/2015 by Arnol Auguste MD at OR [facility] [address] Left: Eye [employer]USCH [employer] LOMB : SURGICAL 11/25/2016 [id number] / [id number] / [id number] Lens Intraoc 23.0 - [id number] - [id number] Implanted:Qty: 1 on 06/04/2016 by Flakito Sorto MD at OR [facility] [address] Right: Eye BAUSCH [employer] LOMB 11/25/2020 [id number] / [id number] / documented as of this encounter Advance Directives Latest Code Status on File Code Status Date Activated Date Inactivated Comments Full Code 06/04/2016 10:57 AM 06/04/2016 5:42 PM This order reflects the patients wishes and were consensually agreed upon. Code Status History Code Status Date Activated Date Inactivated Comments Full Code 10/03/2015 6:23 AM 10/03/2015 12:29 PM This o rder reflects the patients wishes and were consensually agreed upon. Care Teams Advisory Application Developer Relationship Specialty Start Date End Date Seun Riddle DO [address] [place] [address] PCP - General Family Medicine 12/25/16 documented as of this encounter
--- OUTSIDE RECORDS SUMMARY | 2023-11-12 03:49 | External Medical Summary | Summary of Care ---
Author Name Unknown Organization [facility] Address [address] [address] Phone [phone] Care Team Providers Care Fire Prevention Inspector Name Role Phone Seun Riddle DO Primary Care Provider Reason for Visit * Reason Onset Date Comments Order Request 11/05/2023 Encounter Details Date Type Department Care Team (Late st Contact Info) Description 11/05/2023 Telephone Family Practice [facility] [address] [place] [address] Seun Riddle DO 200 [place] [address] Order Request Allergies Active Allergy Reactions Criticality [...] gene variant (c.1783 C>T, p.(R595W)) detected via [employer]. Increased risk for Familial hypercholesterolemia (FH). Please [...] mRNA, LNP-s, No Pre serve, 2-Dose Series ([employer]) 10/01/2021,04/07/2021,09/14/2020,07/30 COVID-19, LNP-s, No Preserve , Yimi-sucrose, [...] wish to have their order completed at? [facility] Fax Number, if applicable: N/a If the [...] 11:20 AM EDT Office Visit Family Practice [facility] [address] [facility] [place] [address] Sussy Zhu PA-C 200 [facility] [place] [address] 11/30/2023 10:30 AM EDT Office Visit Ophthalmology, [facility] [address] [place] [address] Mina Christiansen, [address] [place] [address] 12/29/2023 2:30 PM EDT Office Visit Gynecology/Obstetrics [facility] [address] [place] [address] Ny Mccracken CRNP [address] [place] [address] 03/16/2024 3:45 PM EDT [facility] [address] [place] [address] Qian Dorman MD [address] [place] [address] 07/05/2024 1:00 PM EST Office Visit Gynecology/Obstetrics [facility] [address] [place] [address] Susan Wade CRNP [address] [place] [address] Health Maintenance Due Date Last Done Comments [...] D LEVEL ONCE IN A LIFETIME-USE SMARTSET# 51601 Completed 03/15/2006 Pneumococcal Vaccine: 65+ Years Completed [...] this encounter Medical Devices Implanted Type Area Pattern Chart Writer Device Identifier Shelf Expiration Date Model / Serial / Lot Lens 23.5 M160l - [id number] - [id number] Implanted:Qty: 1 on 10/03/2015 by Arnol Auguste MD at OR [facility] Left: Eye BAUSCH [employer] LOMB : SURGICAL 11/25/2016 [id number] / [id number] / [id number] Lens Intraoc 23.0 - [id number] - [id number] Implanted:Qty: 1 on 06/04/2016 by Flakito Sorto MD at OR [facility] Right: Eye BAUSCH [employer] LOMB 11/25/2020 [id number] / [id number] / documented as of this encounter Advance [...] and were consensually agreed upon. Care Teams Fire Prevention Inspector Relationship Specialty Start Date End Date Seun Riddle DO [address] [place] [address] PCP - General Family Medicine 12/25/16 documented as of this encounter
--- OUTSIDE RECORDS SUMMARY | 2023-11-12 03:50 | External Medical Summary | Summary of Care ---
Author Name Unknown Organization [facility] Address [address] [facility] [place] [address] Phone [phone] Care Team Providers Care Field Sales Consultant Name Role Phone BarakSeun javier Primary Care Provider Reason for Visit * Reason Onset Date Comments Blood Pressure Check 10/26/2023 Encounter Details Date Type Department Care Team (Late st Contact Info) Description 10/26/2023 Telephone Family Practice [facility] [address] [facility] [place] [address] Sussy Zhu PA-C [address] [facility] [place] [address] Blood Pressure Check (/) Allergies Active Allergy Reactions Criticality Noted Date Comments Sulfamethoxazole-Trimethoprim 2019 nausea Nitrofurantoin 2021 nausea Penicillins 03/23/2000 rash Trimethoprim High 04/01/2021 Other reaction(s): Nausea documented as of this encounter (statuses as of 10/26/2023) Medications Medication Sig Dispensed Refills Start Date [...] Active Losartan Potassium 25 MG Oral Tablet (Cozaar)Indications :HTN, goal below 140/90 take 1 tablet by mouth every morning 90 Tablet 3 11/25/2022 Active Naproxen Sodium 220 MG Oral Tablet as needed. 0 Active Albuterol Sulfate HFA 108 (90 Base) MCG/ACT Inhalation Aerosol SolutionIndications :Bronchospasm, exercise-induced inhale 2 puffs by mouth four times a day 18 g 3 04/02/2023 Active Rosuvastatin Calcium 40 MG Oral Tablet (Crestor) Take 1 Tablet by mouth in the morning. 100 Tablet 3 04/01/2023 Active hydroCHLOROthiazide 12.5 MG Oral Tablet (Hydrodiuril) take 1 tablet by mouth once daily 90 Tablet 1 05/27/2023 Active Ondansetron HCl 4 MG Oral TabletIndications:N ausea without vomiting Take 1 Tablet by mouth every 6 hours as needed for Nausea. 30 Tablet 5 07/21/2023 Active Metoprolol Succinate ER 50 MG Oral Tablet Extended Release 24 Hour (Toprol XL) Take one tablet by mouth daily in the morning and one half tablet daily in the evening. 135 Tablet 3 08/26/2023 Active Cephalexin 500 MG Oral Capsule Take 1 Capsule by mouth in the morning and 1 Capsule before bedtime. Do all this for 10 days. 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 Increased risk for Familial hypercholesterolemia (FH). Please [...] as of this encounter (statuses as of 10/26/2023) Resolved Problems Problem Noted Date Diagnosed Date [...] as of this encounter (statuses as of 10/26/2023) Immunizations Name Administration Dates Next Due COVID-19 mRNA, LNP-s, No Pre serve, 2-Dose Series ([employer]) 10/01/2021,04/07/2021,09/14/2020,07/30 COVID-19, LNP-s, No Preserve , Yimi-sucrose, [...] encounter Miscellaneous Notes * Telephone Encounter - Sussy Zhu PA-C - 10/26/2023 6:26 PM EDT No changes in meds. Repeat bp in 2-4 weeks. * Telephone Encounter - Seun Riddle DO - 10/26/2023 4:09 PM EDT Per report from nursing she had urinary symptoms and her urine shows LE and blood. Will start abx based on last culture. * Telephone Encounter - Lyssa Gay MED ASSIST - 10/26/2023 2:26 PM EDT Rachel Garcia presented for blood pressure check per provider orders. The blood pressure was obtained using the left arm in the sitting position using a adult cuff. The results were charted in Vital Signs. BP Readings from Last 3 Encounters: 10/12/23 120/60 09/29/23 140/68 07/29/23 144/60 BP readin) 154/88 2) 136/76 documented in this encounter Plan of Treatment Upcoming Encounters Date Type Department Care Team (Late st Contact Info) Description 11/17/2023 11:20 AM EDT Office Visit Family Practice [facility] [place] [address] [place] [address] Sussy Zhu PA-C [address] [place] [address] 11/30/2023 10:30 AM EDT Office Visit Ophthalmology, [facility] [address] [place] [address] Mina Christiansen DO [address] [place] [address] 12/29/2023 2:30 PM EDT Office Visit Gynecology/Obstetrics [facility] [address] [place] [address] Ny Mccracken CRNP [address] [place] [address] 03/16/2024 3:45 PM EDT Office Visit Dermatology [facility] [address] [place] [address] Qian Dorman MD [address] [place] [address] 07/05/2024 1:00 PM EST Office Visit Gynecology/Obstetrics [facility] [address] [place] [address] Susan Wade CRNP [address] [place] [address] Health Maintenance Due Date Last Done Comments [...] D LEVEL ONCE IN A LIFETIME-USE SMARTSET# 48318 Completed 03/15/2006 Pneumococcal Vaccine: 65+ Years Completed [...] this encounter Medical Devices Implanted Type Area Metal Pattern Maker Device Identifier Shelf Expiration Date Model / Serial / Lot Lens 23.5 M160l - [id number] - [id number] Implanted:Qty: 1 on 10/03/2015 by Arnol Auguste MD at OR [facility] Left: Eye BAUSCH [employer] LOMB : SURGICAL 11/25/2016 [id number] / [id number] / [id number] Lens Intraoc 23.0 - [id number] - [id number] Implanted:Qty: 1 on 06/04/2016 by Flakito Sorto MD at OR [facility] Right: Eye BAUSCH [employer] LOMB 11/25/2020 [id number] / [id number] / documented as of this encounter Advance [...] and were consensually agreed upon. Care Teams Field Sales Consultant Relationship Specialty Start Date End Date Seun Riddle DO [address] [place] [address] PCP - General Family Medicine 12/25/16 documented as of this encounter
--- OUTSIDE RECORDS SUMMARY | 2023-11-12 03:50 | External Medical Summary | Summary of Care ---
Author Name Unknown Organization [facility] Address [address] [facility] [place] [address] Phone [phone] Care Team Providers Care Hobbing Press Operator Name Role Phone BarakSeun javier Primary Care Provider Reason for Visit * Reason Onset Date Comments Appointment 08/06/2023 Encounter Details Date Type Department Care Team (Late st Contact Info) Description 08/06/2023 Telephone Gynecology/Obstetrics [facility] [address] [place] [address] Ny Mccracken CRNP [address] [place] [address] Appointment Allergies Active Allergy Reactions Criticality Noted Date Comments Sulfamethoxazole-Trimethoprim 2019 nausea Nitrofurantoin 2021 nausea Penicillins 03/23/2000 rash Trimethoprim High 04/01/2021 Other reaction(s): Nausea documented as of this encounter (statuses as of 11/05/2023) Medications Medication Sig Dispensed Refills Start Date [...] for Nausea. 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 Increased risk for Familial hypercholesterolemia (FH). Please [...] as of this encounter (statuses as of 11/05/2023) Resolved Problems Problem Noted Date Diagnosed Date [...] as of this encounter (statuses as of 11/05/2023) Immunizations Name Administration Dates Next Due COVID-19 mRNA, LNP-s, No Pre serve, 2-Dose Series (Pfizer) 10/01/2021,04/07/2021,09/14/2020,08/24 COVID-19, LNP-s, No Preserve , Yimi-sucrose, Ages 12+ (Pfizer) 04/04/2022 H1N1 2009 Influenza, IM 07/27/2009 PPD 06/30/2013, 2,08/02/2009,07/11 Pneumococcal Conjugate Vacc, 13 Valent (Prevnar) 05/21/2014 Pneumococcal Polysaccharide PPV23 (Pneumovax) 05/05/2006 Season Influenza, Quad, PF, Adjuvanted, 65+ Yrs, IM (FLUAD) 03/14/2020 Seasonal Influenza, PF, 6 M & above, IM , (FluLaval or Fluzone) 03/15/2018,04/05/2017 Seasonal Influenza, Quadriva lent Hd (Fluzone Hd) 03/24/2023,04/13/2022,03/11/2021 Seasonal Influenza, Quadriva lent, No Preserve, IM 04/14/2016,06/10/2015 Seasonal Influenza, Split, I IV3, With Preserve, Inj 05/21/2014,03/11/2013,04/22/2012,04/11,03/28/2010,05/22/2009,05/02/2008 ,04/04/2007,05/05/2006 Seasonal Influenza, Trivalen t, Adjuvanted, 65+ yrs 03/15/2019 TD - Tetanus/Diptheria (ADULT) 06/30/2005 TDAP (age 10 and older)(Boostrix) 06/30/2013 [...] encounter Miscellaneous Notes * Telephone Encounter - Vidhya Diana OSA - 08/16/2023 3:48 PM EST No urogyn referral in chart - pt has GHP Gold Classic - may not need referral - routing to [facility]omens scheduling to assist with an appt as a new patient to urogyn * Telephone Encounter - Christine Huang LPN - 08/06/2023 10:12 AM EST Pt calling into office to schedule for pessary maintenance. Assisted with scheduling. Pt also requesting to get rescheduled with Urogyn as she will ill and not able to make her last appt with them. She is having a pessary problem and would like to f/u with them; states Ny referred her to f/u withthem. Will forward to [facility] to contact pt for assistance with rescheduling. documented in this encounter Plan of Treatment Upcoming Encounters Date Type Department Care Team (Late st Contact Info) Description 11/17/2023 11:20 AM EDT Office Visit Family Practice [facility] [address] [place] [address] Sussy Zhu PA-C [address] [facility] [place] [address] 11/30/2023 10:30 AM EDT Office Visit Ophthalmology, [facility] [address] [facility] [place] [address] Mina Christiansen, DO [address] [place] [address] 12/29/2023 2:30 PM EDT Office Visit Gynecology/Obstetrics [facility] [address] [place] [address] Ny Mccracken CRNP [address] [place] [address] 03/16/2024 3:45 PM EDT Office Visit Dermatology [facility] [address] [facility] [place] [address] Qian Dorman MD 200 [facility] [place] [address] 07/05/2024 1:00 PM EST Office Visit Gynecology/Obstetrics [facility] [address] [place] [address] Susan Wade CRNP [address] [place] [address] Health Maintenance Due Date Last Done Comments DXA Scan 04/30/2016 04/30/2014, 03/29, 04/18/2012, Additional history exists COVID-19 Vaccine (2022- season) 2023 04/04/2022, 04/04/2022, 10/01/2021, Additional history exists Depression Screening 05/18/2023 05/18/2022, 06/29/2017 (Discussed) DTaP,Tdap,and Td Vaccines (2 - Td or Tdap) 06/30/2023 06/30/2013, 06/30/2005, 06/30/2005 GFR 03/30/2024 03/30/2023, 08/27, 08/14/2022, Additional history exists Albumin/Creatinine Ratio 09/11/2024 09/11/2021 VITAMIN D LEVEL ONCE IN A LIFETIME-USE SMARTSET# 01151 Completed 03/15/2006 Pneumococcal Vaccine: 65+ Years Completed [...] this encounter Medical Devices Implanted Type Area Plant Control Aide Device Identifier Shelf Expiration Date Model / Serial / Lot Lens 23.5 M160l - [id number] - [id number] Implanted:Qty: 1 on 10/03/2015 by Arnol Auguste MD at OR [facility] Left: Eye [employer]US[employer] LOMB : SURGICAL 11/25/2016 [id number] / [id number] / [id number] Lens Intraoc 23.0 - [id number] - [id number] Implanted:Qty: 1 on 06/04/2016 by Flakito Sorto MD at OR [facility] Right: Eye BAUSCH [employer] LOMB 11/25/2020 [id number] / [id number] / documented as of this encounter Advance [...] and were consensually agreed upon. Care Teams Hobbing Press Operator Relationship Specialty Start Date End Date Seun Riddle DO [address] [place] [address] PCP - General Family Medicine 12/25/16 documented as of this encounter
--- OUTSIDE RECORDS SUMMARY | 2023-11-12 03:50 | External Medical Summary | Summary of Care ---
Author Name Unknown Organization [facility] Address [address] [facility] [place] [address] Phone [phone] Care Team Providers Care Longwall Foreman Name Role Phone BarakSeun javier Primary Care Provider Reason for Visit * Reason Onset Date Comments Blood Pressure Check 10/26/2023 Encounter Details Date Type Department Care Team (Late st Contact Info) Description 10/26/2023 1:30 PM EDT Nurse Only Ancillary [facility] [address] [place] [address] Gloria Nurse [facility] [address] [place] [address] Blood Pressure Check Allergies Active Allergy Reactions Criticality Noted Date [...] Base) MCG/ACT Inhalation Aerosol SolutionIndications: Bronchospasm, exercise-induced inhale 2 puffs by mouth four [...] the evening. 135 Tablet 3 08/26/2023 Active Hospital, Clinic, or Other Facility Administered [...] gene variant (c.1783 C>T, p.(R595W)) detected via [employer]. Increased risk for Familial hypercholesterolemia (FH). Please [...] mRNA, LNP-s, No Pre serve, 2-Dose Series ([employer]) 10/01/2021,04/07/2021,09/14/2020,07/30 COVID-19, LNP-s, No Preserve , Yimi-sucrose, [...] on file documented as of this encounter Last Filed Vital Signs Vital Sign Reading Time Taken Comments Blood Pressure 136/76 10/26/2023 2:04 PM EDT Pulse - - Temperature - - Respiratory Rate - - Oxygen Saturation - - Inhaled Oxygen Concentration - - Weight - - Height - - Body Mass Index - - documented in this encounter Progress Notes * Lyssa Gay MED ASSIST - 10/26/2023 2:23 PM EDT Rachel Garcia presented for blood pressure check per provider orders. The blood pressure was obtained using the left arm in the sitting position using a adult cuff. The results were charted in Vital Signs. BP Readings from Last 3 Encounters: 10/12/23 120/60 09/29/23 140/68 07/29/23 144/60 BP readin) 154/88 2) 136/76 * Lyssa Gay MED ASSIST - 10/26/2023 1:40 PM EDT Rachel Garcia presented for blood pressure check per provider orders. The blood pressure was obtained using the left arm in the sitting position using a adult cuff. The results were charted in Vital Signs. BP Readings from Last 3 Encounters: 10/12/23 120/60 09/29/23 140/68 07/29/23 144/60 BP readin) 154/88 2) 136/76 Patient denies headache, pressure in head, dizziness, lightheadedness, chest discomfort, focal neurological symptoms, change in vision, nose bleeds. Did patient take medications today? Yes Patient was instructed to follow-up as per their next scheduled appt documented in this encounter Miscellaneous Notes * Addendum Note - Merlene Joaquin LPN - 10/26/2023 5:32 PM EDTAddended by: MERLENE JOAQUIN on: 10/26/2023 05:32 PM Modules accepted: Orders documented in this encounter Plan of Treatment Upcoming Encounters Date Type Department Care Team (Late st Contact Info) Description 11/17/2023 11:20 AM EDT Office Visit Family Practice [facility] [address] [facility] [place] [address] Sussy Zhu PA-C [address] [facility] [address] [place] [address] 11/30/2023 10:30 AM EDT Office Visit Ophthalmology, [facility] [address] [place] [address] Mina Christiansen DO [address] [place] [address] 12/29/2023 2:30 PM EDT Office Visit Gynecology/Obstetrics [facility] [address] [place] [address] Ny Mccracken CRNP [address] [place] [address] 03/16/2024 3:45 PM EDT Office Visit Dermatology [facility] [address] [facility] [address] Qian Dormna MD [address] [facility] [place] [address] 07/05/2024 1:00 PM EST Office Visit Gynecology/Obstetrics [facility] [address] [place] [address] Susan Wade CRNP [address] [place] [address] Pending Results Name Type Priority Associated Diagnoses Date /Time URINALYSIS, POINT OF CARE (ENTER/EDIT) Point of Care Testing Routine UTI symptoms 10/26/2023 2:19 PM EDT Scheduled Orders Name Type Priority Associated Diagnoses Orde r Schedule BLOOD PRESSURE Procedures Routine HTN, goal below 140/90 Ordered: 10/26/2023 CULTURE, URINE, QUANTITATIVE Lab Routine UTI symptoms Ordered: 10/26/2023 Health Maintenance Due Date Last Done Comments [...] D LEVEL ONCE IN A LIFETIME-USE SMARTSET# 27401 Completed 03/15/2006 Pneumococcal Vaccine: 65+ Years Completed [...] this encounter Medical Devices Implanted Type Area Rn Bsn Device Identifier Shelf Expiration Date Model / Serial / Lot Lens 23.5 M160l - [id number] - [id number] Implanted:Qty: 1 on 10/03/2015 by Arnol Auguste MD at OR [facility] Left: Eye BA[employer]CH [employer] LOMB : SURGICAL 11/25/2016 [id number]-16.5 / [id number] / [id number] Lens Intraoc 23.0 - [id number] - [id number] Implanted:Qty: 1 on 06/04/2016 by Flakito Sorto MD at OR [facility] Right: Eye BAUSCH [employer] LOMB 11/25/2020 [id number] / [id number] / documented as of this encounter Visit Diagnoses Diagnosis UTI symptoms- Primary Other symptoms involving urinary system HTN, goal below 140/90 Unspecified essential hypertension documented in this encounter Advance Directives Latest Code Status [...] and were consensually agreed upon. Care Teams Longwall Foreman Relationship Specialty Start Date End Date Seun Riddle DO [facility] [place] [address] [address] [place] [address] PCP - General Family Medicine 12/25/16 documented as of this encounter
--- OUTSIDE RECORDS SUMMARY | 2023-11-12 03:50 | External Medical Summary | Summary of Care ---
Author Name Unknown Organization [facility] Address [address] [facility] [place] [place] [address] Phone [phone] Care Team Providers Care Hspt Tutor Name Role Phone BarakSeun javier Primary Care Provider Reason for Visit * Reason Onset Date Comments Blood Pressure Check 10/26/2023 Encounter Details Date Type Department Care Team (Late st Contact Info) Description 10/26/2023 Telephone Family Practice [facility] [address] [place] [address] Sussy Zhu PA-C [address] [place] [address] Blood Pressure Check (/) Allergies Active Allergy Reactions Criticality Noted Date Comments Sulfamethoxazole-Trimethoprim 2019 nausea Nitrofurantoin 2021 nausea Penicillins 03/23/2000 rash Trimethoprim High 04/01/2021 Other reaction(s): Nausea documented as of this encounter (statuses as of 10/27/2023) Medications Medication Sig Dispensed Refills Start Date [...] as of this encounter (statuses as of 10/27/2023) Active Problems Problem Noted Date Diagnosed Date Spinal enthesopathy, cervical region 07/14/2023 Bilateral nonexudative age-related macular degen eration 05/19/2023 Degenerative disc disease, cervical 09/09/2022 Hyperlipidemia 09/09/2022 History of 2019 novel coronavirus disease (COVID -19) 06/10/2022 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 Increased risk for Familial hypercholesterolemia (FH). Please [...] as of this encounter (statuses as of 10/27/2023) Resolved Problems Problem Noted Date Diagnosed Date [...] as of this encounter (statuses as of 10/27/2023) Immunizations Name Administration Dates Next Due COVID-19 mRNA, LNP-s, No Pre serve, 2-Dose Series ([employer]) 10/01/2021,04/07/2021,09/14/2020,07/30 COVID-19, LNP-s, No Preserve , Yimi-sucrose, [...] encounter Miscellaneous Notes * Telephone Encounter - Alana Rose LPN - 10/27/2023 10:58 AM EDT Patient aware and verbalized understanding, will comply She has appt with September on 11/16. * Telephone Encounter - Sussy Zhu PA-C [...] 11:20 AM EDT Office Visit Family Practice [facility] [address] [place] [address] Sussy Zhu PA-C [address] [facility] [place] [address] 11/30/2023 10:30 AM EDT Office Visit Ophthalmology, [facility] [address] [place] [address] Mina Christiansen DO [address] [place] [address] 12/29/2023 2:30 PM EDT Office Visit Gynecology/Obstetrics [facility] [address] [place] [address] Ny Mccracken CRNP [address] [place] [address] 03/16/2024 3:45 PM EDT Office Visit Dermatology [facility] [address] [place] [address] Qian Dorman MD [address] [place] [address] 07/05/2024 1:00 PM EST Office Visit Gynecology/Obstetrics [facility] [address] [place] [address] BackerSusan CRNP [address] [place] [address] Health Maintenance Due Date Last Done Comments [...] D LEVEL ONCE IN A LIFETIME-USE SMARTSET# 07295 Completed 03/15/2006 Pneumococcal Vaccine: 65+ Years Completed [...] this encounter Medical Devices Implanted Type Area Network Operations Center Technician Device Identifier Shelf Expiration Date Model / Serial / Lot Lens 23.5 M160l - [id number] - [id number] Implanted:Qty: 1 on 10/03/2015 by Arnol Auguste MD at OR [facility] Left: Eye BAUSCH [employer] LOMB : SURGICAL 11/25/2016 [id number]-10.5 / [id number] / [id number] Lens Intraoc 23.0 - [id number] - [id number] Implanted:Qty: 1 on 06/04/2016 by Flakito Sorto MD at OR [facility] Right: Eye BAUSCH [employer] LOMB 11/25/2020 [id number] / [id number] / documented as of this encounter Advance [...] and were consensually agreed upon. Care Teams Hspt Tutor Relationship Specialty Start Date End Date Seun Riddle DO [address] [facility] [place] [address] PCP - General Family Medicine 12/25/16 documented as of this encounter
--- OUTSIDE RECORDS SUMMARY | 2023-11-12 03:50 | External Medical Summary | Summary of Care ---
Author Name Unknown Organization [facility] Address [address] [facility] [place] [address] Phone [phone] Care Team Providers Care Account Services Manager Name Role Phone Cameron Riddle DO Primary Care Provider Reason for Visit * Reason Comments eRx-Medication Refill Encounter Details Date Type Department Care Team (Late st Contact Info) Description 10/30/2023 Refill Family Practice [facility] [address] [facility] [place] [address] Cameron Riddle DO [address] [facility] [place] [address] Bronchospasm, exercise-induced Allergies Active Allergy Reactions Criticality Noted Date Comments Sulfamethoxazole-Trimethoprim 2019 nausea Nitrofurantoin 2021 nausea Penicillins 03/23/2000 rash Trimethoprim High 04/01/2021 Other reaction(s): Nausea documented as of this encounter (statuses as of 11/01/2023) Medications Medication Sig Dispensed Refills Start Date [...] Active Losartan Potassium 25 MG Oral Tablet (Cozaar)Indicatio ns:HTN, goal below 140/90 take 1 tablet by mouth every morning 90 Tablet 3 11/25/2022 Active Naproxen Sodium 220 MG Oral Tablet as needed. 0 Active Rosuvastatin Calcium 40 MG Oral Tablet (Crestor) Take 1 Tablet by mouth in the morning. 100 Tablet 3 04/01/2023 Active hydroCHLOROthiazi de 12.5 MG Oral Tablet (Hydrodiuril) take 1 tablet by mouth once daily 90 Tablet 1 05/27/2023 Active Ondansetron HCl 4 MG Oral TabletIndications :Nausea without vomiting Take 1 Tablet by mouth [...] days. 20 Capsule 0 10/26/2023 11/05/2023 Active Albuterol Sulfate HFA 108 (90 Base) MCG/ACT Inhalation Aerosol SolutionIndicatio ns:Bronchospasm, exercise-induced INHALE 2 PUFFS BY MOUTH FOUR TIMES A DAY 18 g 3 11/01/2023 Active Albuterol Sulfate HFA 108 (90 Base) MCG/ACT Inhalation Aerosol SolutionIndicatio ns:Bronchospasm, exercise-induced inhale 2 puffs by mouth four times a day 18 g 3 04/02/2023 11/01/2023 Discontinued Hospital, Clinic, or Other Facility Administered Medication [...] as of this encounter (statuses as of 11/01/2023) Active Problems Problem Noted Date Diagnosed Date Spinal enthesopathy, cervical region 07/14/2023 Bilateral nonexudative age-related macular degen eration 05/19/2023 Degenerative disc disease, cervical 09/09/2022 Hyperlipidemia 09/09/2022 History of 2019 novel coronavirus disease (COVID -19) 06/10/2022 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 Increased risk for Familial hypercholesterolemia (FH). Please [...] as of this encounter (statuses as of 11/01/2023) Resolved Problems Problem Noted Date Diagnosed Date [...] as of this encounter (statuses as of 11/01/2023) Immunizations Name Administration Dates Next Due COVID-19 mRNA, LNP-s, No Pre serve, 2-Dose Series ([employer]) 10/01/2021,04/07/2021,09/14/2020,08/24 COVID-19, LNP-s, No Preserve , Yimi-sucrose, [...] encounter Miscellaneous Notes * Telephone Encounter - Mayra Nugent RPh - 11/01/2023 12:06 PM EDTSigned Prescriptions: Disp Refills Albuterol Sulfate HFA 108 (90 Base) MCG/AC*18 g 3 Sig: INHALE 2 PUFFS BY MOUTH FOUR TIMES A DAYAuthorizing Provider: CAMERON RIDDLE User: MAYRA NUGENT documented in this encounter Plan of Treatment Upcoming Encounters Date Type Department Care Team (Late st Contact Info) Description 11/17/2023 11:20 AM EDT Office Visit Family Practice [facility] [address] [facility] [place] [address] Sussy Zhu PA-C 200 [facility] [place] [address] 11/30/2023 10:30 AM EDT Office Visit Ophthalmology, [facility] [address] [place] [address] Mina Christiansen DO [address] [place] [address] 12/29/2023 2:30 PM EDT Office Visit Gynecology/Obstetrics [facility] [address] [place] [address] Ny Mccracken CRNP [address] [place] [address] 03/16/2024 3:45 PM EDT Office Visit Dermatology [facility] [address] [facility] [place] [address] Qian Dorman MD 200 [facility] [place] [address] 07/05/2024 1:00 PM EST Office Visit Gynecology/Obstetrics [facility] [address] [place] [address] Susan Wade CRNP [address] [place] [address] Health Maintenance Due Date Last Done Comments [...] D LEVEL ONCE IN A LIFETIME-USE SMARTSET# 77974 Completed 03/15/2006 Pneumococcal Vaccine: 65+ Years Completed [...] this encounter Medical Devices Implanted Type Area Office Services Associate Device Identifier Shelf Expiration Date Model / Serial / Lot Lens 23.5 M160l - [id number] - [id number] Implanted:Qty: 1 on 10/03/2015 by Arnol Auguste MD at OR [facility] Left: Eye BAUSCH & LOMB : SURGICAL 11/25/2016 [id number]-94.5 / [id number] / [id number] Lens Intraoc 23.0 - [id number] - [id number] Implanted:Qty: 1 on 06/04/2016 by Flakito Sorto MD at OR [facility] Right: Eye BAUSCH & LOMB 11/25/2020 [id number] / [id number] / documented as of this encounter Visit Diagnoses Diagnosis Bronchospasm, exercise-induced Exercise induced bronchospasm documented in this encounter Advance Directives Latest [...] and were consensually agreed upon. Care Teams Account Services Manager Relationship Specialty Start Date End Date Cameron Riddle DO [address] [place] [address] PCP - General Family Medicine 12/25/16 documented as of this encounter
--- OUTSIDE RECORDS SUMMARY | 2023-11-12 03:51 | External Medical Summary | Summary of Care ---
Author Name Unknown Organization [facility] Address [address] [facility] [place] [address] Phone [phone] Care Team Providers Care Customer Service Technician Name Role Phone BarakSeun javier Primary Care Provider [phone] Reason for Visit * Reason Onset Date Comments Blood Pressure Check 10/26/2023 Encounter Details Date Type Department Care Team (Late st Contact Info) Description 10/26/2023 1:30 PM EDT Nurse Only Ancillary [facility] 200 [facility] [place] [address] Gloria Nurse [facility] 200 [facility] [place] [address] Blood Pressure Check Allergies Active Allergy Reactions [...] gene variant (c.1783 C>T, p.(R595W)) detected via Immunexpress. Increased risk for Familial hypercholesterolemia (FH). Please [...] mRNA, LNP-s, No Pre serve, 2-Dose Series (Sokrati) 10/01/2021,04/07/2021,09/14/2020,07/30 COVID-19, LNP-s, No Preserve , Yimi-sucrose, [...] next scheduled appt documented in this encounter Plan of Treatment Upcoming Encounters Date Type Department Care Team (Late st Contact Info) Description 11/17/2023 11:20 AM EDT Office Visit Family Practice [facility] [address] [place] [address] [address] Sussy Zhu PA-C [address] [place] [address] 11/30/2023 10:30 AM EDT Office Visit Ophthalmology, [facility] [address] [place] [address] Mina Christiansen DO [address] [place] [address] 12/29/2023 2:30 PM EDT Office Visit Gynecology/Obstetrics [facility] [address] [place] [address] Ny Mccracken CRNP [address] [place] [address] 03/16/2024 3:45 PM EDT Office Visit Dermatology [facility] [address] [place] [address] [address] Qian Dorman MD [address] [place] [address] 07/05/2024 1:00 PM EST Office Visit Gynecology/Obstetrics Al[facility] Veliz [address] [place] [address] Backer, MACIE Aldrich [address] [place] [address] Pending Results Name Type Priority Associated Diagnoses Date /Time URINALYSIS, POINT OF CARE (ENTER/EDIT) Point of Care Testing Routine UTI symptoms 10/26/2023 2:19 PM EDT Scheduled Orders Name Type Priority Associated Diagnoses Orde r Schedule BLOOD PRESSURE Procedures Routine HTN, goal below 140/90 Ordered: 10/26/2023 Health Maintenance Due Date Last [...] D LEVEL ONCE IN A LIFETIME-USE SMARTSET# 22721 Completed 03/15/2006 Pneumococcal Vaccine: 65+ Years Completed [...] this encounter Medical Devices Implanted Type Area Sales Engagement Executive Device Identifier Shelf Expiration Date Model / Serial / Lot Lens 23.5 M160l - [id number] - [id number] Implanted:Qty: 1 on 10/03/2015 by Arnol Auguste MD at OR [facility] Left: Eye BAUSCH & LOMB : SURGICAL 11/25/2016 [id number]-[id number] / [id number] / [id number] Lens Intraoc 23.0 - [id number] - [id number] Implanted:Qty: 1 on 06/04/2016 by Flakito Sorto MD at OR [facility] Right: Eye BAUSCH & LOMB 11/25/2020 [id number] / [id number] / documented as of this encounter Visit [...] and were consensually agreed upon. Care Teams Customer Service Technician Relationship Specialty Start Date End Date Seun Riddle DO [address] [place] [address] PCP - General Family Medicine 12/25/16 documented as of this encounter
--- OUTSIDE RECORDS SUMMARY | 2023-11-12 03:51 | External Medical Summary | Summary of Care ---
Author Name Unknown Organization [facility] Address [address] [facility] [place] [address] Phone [phone] Care Team Providers Care Iron Installer Name Role Phone Seun Riddle DO Primary Care Provider Encounter Details Date Type Department Care Team (Late st Contact Info) Description 10/26/2023 Telephone Family Practice [facility] [place] 200 [facility] [place] [address] Seun Riddle DO 200 [facility] [place] [address] Allergies Active Allergy Reactions Criticality Noted Date [...] gene variant (c.1783 C>T, p.(R595W)) detected via LogicLadder. Increased risk for Familial hypercholesterolemia (FH). Please [...] mRNA, LNP-s, No Pre serve, 2-Dose Series (Game Insight) 10/01/2021,04/07/2021,09/14/2020,08/24 COVID-19, LNP-s, No Preserve , Yimi-sucrose, [...] encounter Miscellaneous Notes * Telephone Encounter - Seun Riddle DO - 10/26/2023 5:59 PM EDT Keflex sent earlier today * Telephone Encounter - Angela Joaquin LPN - 10/26/2023 5:24 PM EDT Patient was seen today for nurse clinic visit and asked to submit a urine sample while here becauseshe is having UTI symptoms. Urine collected and processed, showed large leukocytes and blood. Discussed with Dr. Riddle who has agreeable to ordering an antibiotic for patient. I discussed with patient who states she has used Cipro before and tolerated it okay. She'd like to have that prescribed if possible. I told her I'd relay that message to Dr. Riddle and also told her regardless of what antibiotic is sent it may need to be changed based on the result of the culture. Patient verbalized understanding. She was also concerned about a fluid pocket at her left elbow (appears to be bursitis). She was recently taken off of HCTZ due to dizziness and was concerned that the fluid was building up due to that. I assured her that this was not due to stopping the HCTZ. She denies recent injury to the area but states she does lean on her elbow a lot. The area is not red or warm to touch. Discussed with Dr. Riddle and recommended she schedule an office visit to have the area evaluated. documented in this encounter Plan of Treatment Upcoming Encounters Date Type Department Care Team (Late st Contact Info) Description 11/17/2023 11:20 AM EDT Office Visit Family Practice [facility] [place] 200 [facility] [place] [address] Sussy Zhu PA-C [facility] [place] [address] 11/30/2023 10:30 AM EDT Office Visit Ophthalmology, [facility] [address] [place] [address] Mina Christiansen DO [address] [place] [address] 12/29/2023 2:30 PM EDT Office Visit [facility]necology[facility] [address] [place] [address] Ny Mccracken CRNP [address] [place] [address] 03/16/2024 3:45 PM EDT Office Visit Dermatology [facility] [address] [facility] [place] [address] Qian Dorman MD 200 [facility] [place] [address] 07/05/2024 1:00 PM EST Office Visit Gynecology/Obstetrics [facility] [address] [place] [address] Susan Wade CRNP [address] [place] [address] Health Maintenance Due Date Last Done Comments [...] D LEVEL ONCE IN A LIFETIME-USE SMARTSET# 98470 Completed 03/15/2006 Pneumococcal Vaccine: 65+ Years Completed [...] this encounter Medical Devices Implanted Type Area Shale Planer Operator Device Identifier Shelf Expiration Date Model / Serial / Lot Lens 23.5 M160l - [id number] - [id number] Implanted:Qty: 1 on 10/03/2015 by Arnol Auguste MD at OR [facility] Left: Eye BAUSCH & LOMB : SURGICAL 11/25/2016 [id number]-07.5 / [id number] / [id number] Lens Intraoc 23.0 - [id number] - [id number] Implanted:Qty: 1 on 06/04/2016 by Flakito Sorto MD at OR [facility] Right: Eye BAUSCH & LOMB 11/25/2020 [id number] / [id number] / documented as of this encounter Advance [...] and were consensually agreed upon. Care Teams Iron Installer Relationship Specialty Start Date End Date Seun Riddle DO 200 [place] [address] PCP - General Family Medicine 12/25/16 documented as of this encounter
--- OUTSIDE RECORDS SUMMARY | 2023-11-12 03:51 | External Medical Summary | Summary of Care ---
Author Name Unknown Organization [facility] Address [address] [facility] [place] [address] Phone [phone] Care Team Providers Care Lead Accountant Name Role Phone BarakSeun javier Primary Care Provider Reason for Visit * Reason Onset Date Comments Blood Pressure Check 10/26/2023 Encounter Details Date Type Department Care Team (Late st Contact Info) Description 10/26/2023 1:30 PM EDT Nurse Only Ancillary [facility] [address] [facility] [place] [address] Gloria Nurse [facility] [address] [facility] [place] [address] Blood Pressure Check Allergies Active Allergy Reactions [...] gene variant (c.1783 C>T, p.(R595W)) detected via Sprout. Increased risk for Familial hypercholesterolemia (FH). Please [...] mRNA, LNP-s, No Pre serve, 2-Dose Series ([employer]henandoah [employer]) 10/01/2021,04/07/2021,09/14/2020,07/30 COVID-19, LNP-s, No Preserve , Yimi-sucrose, [...] 11:20 AM EDT Office Visit Family Practice [facility] [address] [place] [address] [place] [address] Sussy Zhu PA-C [address] [place] [address] 11/30/2023 10:30 AM EDT Office Visit Ophthalmology, [facility] [address] [place] [address] Mina Christiansen DO [address] [place] [address] 12/29/2023 2:30 PM EDT Office Visit Gynecology/Obstetrics [facility] [address] [place] [address] Ny Mccracken CRNP [address] [place] [address] 03/16/2024 3:45 PM EDT Office Visit Dermatology [facility] [address] [place] [address] Qian Dorman MD [address] [place] [address] 07/05/2024 1:00 PM EST Office Visit Gynecology/Obstetrics Alix Veliz [address] [place] [address] Backer, MACIE Aldrich [address] [place] [address] Pending Results Name Type Priority Associated Diagnoses [...] D LEVEL ONCE IN A LIFETIME-USE SMARTSET# 05869 Completed 03/15/2006 Pneumococcal Vaccine: 65+ Years Completed [...] this encounter Medical Devices Implanted Type Area Mixing Plant Dumper Device Identifier Shelf Expiration Date Model / Serial / Lot Lens 23.5 M160l - [id number] - [id number] Implanted:Qty: 1 on 10/03/2015 by Arnol Auguste MD at OR [facility] Left: Eye BAUSCH & LOMB : SURGICAL 11/25/2016 SU06H-93.5 / [id number] / [id number] Lens Intraoc 23.0 - [id number] - [id number] Implanted:Qty: 1 on 06/04/2016 by Flakito oSrto MD at OR [facility] Right: Eye BAUSCH & LOMB 11/25/2020 [id number] / [id number] / documented as of this encounter Visit [...] and were consensually agreed upon. Care Teams Lead Accountant Relationship Specialty Start Date End Date Seun Riddle DO [address] [place] [address] PCP - General Family Medicine 12/25/16 documented as of this encounter
--- OUTSIDE RECORDS SUMMARY | 2023-11-12 03:51 | External Medical Summary | Summary of Care ---
Author Name Unknown Organization [facility] Address [address] [facility] [place] [address] Phone [phone] Care Team Providers Care Homicide Detective Name Role Phone BarakSeun javier Primary Care Provider [phone] Reason for Visit * Reason Onset Date Comments Blood Pressure Check 10/26/2023 Encounter Details Date Type Department Care Team (Late st Contact Info) Description 10/26/2023 1:30 PM EDT Nurse Only Ancillary [facility] 200 [facility] [place] [address] Gloria Nurse [facility] 200 [facility] [place] [address] Blood Pressure Check Allergies Active Allergy Reactions [...] gene variant (c.1783 C>T, p.(R595W)) detected via [employer]. Increased risk for Familial hypercholesterolemia (FH). Please [...] mRNA, LNP-s, No Pre serve, 2-Dose Series (Doorbot) 10/01/2021,04/07/2021,09/14/2020,07/30 COVID-19, LNP-s, No Preserve , Ymii-sucrose, Ages 12+ (Pfizer) 04/04/2022 H1N1 2009 Influenza, [...] 11:20 AM EDT Office Visit Family Practice [facility] [address] [facility] [place] [address] Sussy Zhu PA-C 200 [facility] [place] [address] 11/30/2023 10:30 AM EDT Office Visit Ophthalmology, [facility] [address] [place] [address] Mina Christiansen DO [address] [place] [address] 12/29/2023 2:30 PM EDT Office Visit Gynecology/Obstetrics [facility] [address] [place] [address] Ny Mccracken CRNP [address] [place] [address] 03/16/2024 3:45 PM EDT Office Visit Dermatology [facility] [address] [facility] [place] [address] Qian Dorman MD 200 [facility] [place] [address] 07/05/2024 1:00 PM EST Office Visit Gynecology/Obstetrics [facility] [address] [place] [address] Susan Wade CRNP [address] [place] [address] Pending Results Name Type Priority Associated Diagnoses [...] D LEVEL ONCE IN A LIFETIME-USE SMARTSET# 03265 Completed 03/15/2006 Pneumococcal Vaccine: 65+ Years Completed [...] this encounter Medical Devices Implanted Type Area Remote Sensing Advisor Device Identifier Shelf Expiration Date Model / Serial / Lot Lens 23.5 M160l - [id number] - [id number] Implanted:Qty: 1 on 10/03/2015 by Arnol Auguste MD at OR [facility] Left: Eye BAUSCH & LOMB : SURGICAL 11/25/2016 DL22Z-40.5 / [id number] / [id number] Lens Intraoc 23.0 - [id number] - [id number] Implanted:Qty: 1 on 06/04/2016 by Flakito Sorto MD at OR [facility] Right: Eye BAUSCH & LOMB 11/25/2020 [id number] / [id number] / documented as of this encounter Visit [...] and were consensually agreed upon. Care Teams Homicide Detective Relationship Specialty Start Date End Date Seun Riddle DO [facility] [place] [address] PCP - General Family Medicine 12/25/16 documented as of this encounter
--- OUTSIDE RECORDS SUMMARY | 2023-11-12 03:51 | External Medical Summary | Summary of Care ---
Author Name Unknown Organization [facility] Address [address] [facility] [place] [address] Phone [phone] Care Team Providers Care Pharmaceutical Service Representative Name Role Phone BarakSeun javier Primary Care Provider [phone] Reason for Visit * Reason Onset Date Comments Blood Pressure Check 10/26/2023 Encounter Details Date Type Department Care Team (Late st Contact Info) Description 10/26/2023 Telephone Family Practice [facility] 200 [facility] [place] [address] Sussy Zhu PA-C 200 [place] [address] Blood Pressure Check (/) Allergies Active Allergy [...] gene variant (c.1783 C>T, p.(R595W)) detected via charming charlie. Increased risk for Familial hypercholesterolemia (FH). Please [...] mRNA, LNP-s, No Pre serve, 2-Dose Series (Aductions) 10/01/2021,04/07/2021,09/14/2020,08/24 COVID-19, LNP-s, No Preserve , Yimi-sucrose, [...] ASSIST - 10/26/2023 2:26 PM EDT Rachel Landin Cristinatam presented for blood pressure check per provider [...] 11:20 AM EDT Office Visit Family Practice [facility] 200 [facility] [place], [place] [address] Sussy Zhu PA-C 200 [facility] [place], [place] [address] 11/30/2023 10:30 AM EDT Office Visit Ophthalmology, [facility] [address] [place] [address] Mina Christiansen DO [address] [place] [address] 12/29/2023 2:30 PM EDT Office Visit Gynecology/Obstetrics [facility] [address] [place] [address] Ny Mccracken CRNP [address] [place] [address] 03/16/2024 3:45 PM EDT Office Visit Dermatology [facility] 200 [facility] [place] [address] Qian Dorman MD 200 [facility] [place], [place] [address] 07/05/2024 1:00 PM EST Office Visit Gynecology/Obstetrics [facility] [address] [place] [address] Susan Wade CRNP [address] [place] [address] Health Maintenance Due Date Last Done Comments [...] D LEVEL ONCE IN A LIFETIME-USE SMARTSET# 48942 Completed 03/15/2006 Pneumococcal Vaccine: 65+ Years Completed [...] this encounter Medical Devices Implanted Type Area Slope Runner Device Identifier Shelf Expiration Date Model / Serial / Lot Lens 23.5 M160l - [id number] - [id number] Implanted:Qty: 1 on 10/03/2015 by Arnol Auguste MD at OR [facility] Left: Eye BAUSCH & LOMB : SURGICAL 11/25/2016 TF58X-65.5 / [id number] / [id number] Lens Intraoc 23.0 - [id number] - [id number] Implanted:Qty: 1 on 06/04/2016 by Flakito Sorto MD at OR [facility] Right: Eye BAUSCH & LOMB 11/25/2020 [id number] / [id number] / documented as of this encounter Advance [...] and were consensually agreed upon. Care Teams Pharmaceutical Service Representative Relationship Specialty Start Date End Date Seun Riddle DO [address] [place] [address] PCP - General Family Medicine 12/25/16 documented as of this encounter
--- OUTSIDE RECORDS SUMMARY | 2023-11-12 03:51 | External Medical Summary | Summary of Care ---
Author Name Unknown Organization [facility] Address [address] [place] [address] Phone [phone] Care Team Providers Care Accuracy Expert Name Role Phone BarakSeun javier Primary Care Provider Reason for Visit * Reason Onset Date Comments Appointment 10/22/2023 Encounter Details Date Type Department Care Team (Late st Contact Info) Description 10/22/2023 Telephone Ophthalmology, [facility] [address] [place] [address] Services, Scheduling [address] [place] [address] Appointment Allergies Active Allergy Reactions Criticality Noted Date Comments Sulfamethoxazole-Trimethoprim 2019 nausea Nitrofurantoin 2021 nausea Penicillins 03/23/2000 rash Trimethoprim High 04/01/2021 Other reaction(s): Nausea documented as of this encounter (statuses as of 10/22/2023) Medications Medication Sig Dispensed Refills Start Date [...] as of this encounter (statuses as of 10/22/2023) Active Problems Problem Noted Date Diagnosed Date Spinal enthesopathy, cervical region 07/14/2023 Bilateral nonexudative age-related macular degen eration 05/19/2023 Degenerative disc disease, cervical 09/09/2022 Hyperlipidemia 09/09/2022 History of 2019 novel coronavirus disease (COVID -19) 06/10/2022 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 Increased risk for Familial hypercholesterolemia (FH). Please [...] as of this encounter (statuses as of 10/22/2023) Resolved Problems Problem Noted Date Diagnosed Date [...] as of this encounter (statuses as of 10/22/2023) Immunizations Name Administration Dates Next Due COVID-19 mRNA, LNP-s, No Pre serve, 2-Dose Series ([employer]) 10/01/2021,04/07/2021,09/14/2020,08/24 COVID-19, LNP-s, No Preserve , Yimi-sucrose, [...] encounter Miscellaneous Notes * Telephone Encounter - Nan Cohen MED ASSIST - 10/22/2023 10:59 AM EDT Pt scheduled for 11/30/23 at 1030, pt agreeable * Telephone Encounter - Eva Bragg OSA - 10/22/2023 10:43 AM EDT Good morning, Patient is scheduled for a return retinal injection with Dr. Christiansen November 24, patient calling to reschedule due to another appointment scheduled for the same day. Nothing available at this time for the time frame she is due. Thank you, Eva documented in this encounter Plan of Treatment Upcoming Encounters Date Type Department Care Team (Late st Contact Info) Description 10/26/2023 1:30 PM EDT Nurse Only [facility] [address] [place] [address] Gloria Nurse [facility] [address] [place] [address] 11/17/2023 11:20 AM EDT Office Visit Family Practice [facility] [address] [place] [address] Sussy Zhu PA-C 200 [facility] [place] [address] 11/30/2023 10:30 AM EDT Office Visit Ophthalmology, [facility] [address] [place] [address] Mina Christiansen DO [address] [place] [address] 12/29/2023 2:30 PM EDT Office Visit Gynecology/Obstetrics [facility] [address] [facility] [place] [address] Ny Mccracken CRNP [address] [facility] [place] [address] 03/16/2024 3:45 PM EDT Office Visit Dermatology [facility] 200 [facility] [place] [address] Qian Dorman MD 200 [facility] [place] [address] 07/05/2024 1:00 PM EST Office Visit Gynecology/Obstetrics [facility] 132 [facility] [place] [address] Susan Wade CRNP [address] [facility] [address] Health Maintenance Due Date Last Done Comments [...] D LEVEL ONCE IN A LIFETIME-USE SMARTSET# 26433 Completed 03/15/2006 Pneumococcal Vaccine: 65+ Years Completed [...] this encounter Medical Devices Implanted Type Area Vault Teller Device Identifier Shelf Expiration Date Model / Serial / Lot Lens 23.5 M160l - [id number] - [id number] Implanted:Qty: 1 on 10/03/2015 by Arnol Auguste MD at OR [facility] Left: Eye BAUSCH & LOMB : SURGICAL 11/25/2016 [id number]-12.5 / [id number] / [id number] Lens Intraoc 23.0 - [id number] - [id number] Implanted:Qty: 1 on 06/04/2016 by Flakito Sorto MD at OR [facility] Right: Eye BAUSCH & LOMB 11/25/2020 [id number] / [id number] / documented as of this encounter Advance [...] and were consensually agreed upon. Care Teams Accuracy Expert Relationship Specialty Start Date End Date Seun Riddle DO [address] [place] [address] PCP - General Family Medicine 12/25/16 documented as of this encounter
--- OUTSIDE RECORDS SUMMARY | 2023-11-12 03:51 | External Medical Summary | Summary of Care ---
Author Name Unknown Organization [facility] Address [address] [facility] [place] [address] Phone [phone] Care Team Providers Care Sweet Pickle Maker Name Role Phone BarakSeun javier Primary Care Provider Reason for Visit * Reason Onset Date Comments Blood Pressure Check 10/26/2023 Encounter Details Date Type Department Care Team (Late st Contact Info) Description 10/26/2023 1:30 PM EDT Nurse Only Ancillary [facility] [address] [facility] [place] [address] Gloria Nurse [facility] [address] [facility] [place] [address] Blood Pressure Check Allergies Active Allergy Reactions [...] gene variant (c.1783 C>T, p.(R595W)) detected via [employer]. Increased risk for Familial hypercholesterolemia (FH). Please [...] mRNA, LNP-s, No Pre serve, 2-Dose Series ([employer]) 10/01/2021,04/07/2021,09/14/2020,07/30 COVID-19, LNP-s, No Preserve , Yimi-sucrose, [...] 11:20 AM EDT Office Visit Family Practice [facility] [address] [place] [address] Sussy Zhu PA-C [address] [place] [address] 11/30/2023 10:30 AM EDT Office Visit Ophthalmology, [facility] [address] [place] [address] Mina Christiansen DO [address] [place] [address] 12/29/2023 2:30 PM EDT Office Visit Gynecology/Obstetrics [facility] [address] [place] [address] Ny Mccracken CRNP [address] [place] [address] 03/16/2024 3:45 PM EDT Office Visit Dermatology [facility] [address] [place] [address] Qian Dorman MD [address] [address] 07/05/2024 1:00 PM EST Office Visit Gynecology/Obstetrics Alix Veliz [address] [place] [address] Backer, MACIE Aldrich [address] [place] [address] Pending Results Name Type Priority Associated Diagnoses [...] D LEVEL ONCE IN A LIFETIME-USE SMARTSET# 46986 Completed 03/15/2006 Pneumococcal Vaccine: 65+ Years Completed [...] encounter Medical Devices Implanted Type Area Sales Rep Device Identifier Shelf Expiration Date Model / Serial / Lot Lens 23.5 M160l - [id number] - [id number] Implanted:Qty: 1 on 10/03/2015 by Arnol Auguste MD at OR [facility] Left: Eye BAUSCH [employer] LOMB : SURGICAL 11/25/2016 [id number] / [id number] / [id number] Lens Intraoc 23.0 - [id number] - [id number] Implanted:Qty: 1 on 06/04/2016 by Flakito Sorto MD at OR [facility] Right: Eye BAUSCH [employer] LOMB 11/25/2020 [id number] / [id number] / documented as of this encounter Visit [...] and were consensually agreed upon. Care Teams Sweet Pickle Maker Relationship Specialty Start Date End Date Seun Riddle DO [address] [place] [address] PCP - General Family Medicine 12/25/16 documented as of this encounter
--- OUTSIDE RECORDS SUMMARY | 2023-11-12 03:52 | External Medical Summary | Summary of Care ---
Author Name Unknown Organization [facility] Address [address] [facility] [place] [address] Phone [phone] Care Team Providers Care Cad Administrator Name Role Phone BarakSeun javier Primary Care Provider Reason for Visit * Reason Comments Lethargy Macular degeneration in the right eye. Off balance, lethargic, lightheadedness. Patient reports being "off". Had a UTI about a 10 days ago. Encounter Details Date Type Department Care Team (Latest Contact Info) Description 10/12/2023 1:00 PM EDT Office Visit Family Practice [facility] [place] 200 [facility] [place] [address] Sussy Zhu PA-C [address] [facility] [place] [address] Lightheaded*; HTN, goal below 140/90; DYSLIPIDEMIA, GOAL TO BE DETERMINED; Primary osteoarthritis of right knee; Bilateral nonexudative age-related macular degeneration, unspecified stage Allergies Active Allergy Reactions Criticality Noted Date Comments Sulfamethoxazole-Trimethoprim 2019 nausea Nitrofurantoin 2021 nausea Penicillins 03/23/2000 rash Trimethoprim High 04/01/2021 Other reaction(s): Nausea documented as of this encounter (statuses as of 10/12/2023) Medications Medication Sig Dispensed Refills Start Date [...] as of this encounter (statuses as of 10/12/2023) Active Problems Problem Noted Date Diagnosed Date Spinal enthesopathy, cervical region 07/14/2023 Bilateral nonexudative age-related macular degen eration 05/19/2023 Degenerative disc disease, cervical 09/09/2022 Hyperlipidemia 09/09/2022 History of 2019 novel coronavirus disease (COVID -19) 06/10/2022 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 Increased risk for Familial hypercholesterolemia (FH). Please [...] as of this encounter (statuses as of 10/12/2023) Resolved Problems Problem Noted Date Diagnosed Date [...] as of this encounter (statuses as of 10/12/2023) Immunizations Name Administration Dates Next Due COVID-19 mRNA, LNP-s, No Pre serve, 2-Dose Series ([employer]) 10/01/2021,04/07/2021,09/14/2020,08/24 COVID-19, LNP-s, No Preserve , Yimi-sucrose, [...] 0 07/06/1973 - 07/06/2013 Smokeless Tobacco: Never Tobacco Cessation:Counseling Given: Not Answered Comments:1 pk per week Alcohol Use Standard [...] Sign Reading Time Taken Comments Blood Pressure 120/60 10/12/2023 1:11 PM EDT Pulse 77 10/12/2023 1:11 PM EDT Temperature 36.3 C (97.3 F) 10/12/2023 1:11 PM ED T Respiratory Rate 16 10/12/2023 1:11 PM EDT Oxygen Saturation 97% 10/12/2023 1:11 PM EDT Inhaled Oxygen Concentration - - Weight 53.1 kg (117 lb) 10/12/2023 1:11 PM EDT Height - - Body Mass Index 22.11 09/29/2023 2:30 PM EDT documented in this encounter Progress Notes * Sussy Zhu PA-C - 10/12/2023 1:17 PM EDT Images from the original note were not included. History of Present Illness Rachel Garcia is a 82 year old female that presents for Lethargy (Macular degeneration in the right eye. Off balance, lethargic, lightheadedness. Patient reports being "off". Had a UTI about a 10 days ago. ) Patient is a 82 year old female who presents with her son. Was seen in the ER on 10/02 for lightheaded. Was found to have a UTI. Has had some intermitent lightheaded over the past year. No lightheadedness first thing in the morning or at night. waS switched to cipro. Appetite diminished Sleep good Urination/ bowel movements good Physical Exam Vitals: 10/12/23 1311 Temp: 36.3 C (97.3 F) Pulse: 77 Resp: 16 SpO2: 97% BP: 120/60 BP Readings from Last 3 Encounters: 10/12/23 120/60 09/29/23 140/68 07/29/23 144/60 Wt Readings from Last 3 Encounters: 10/12/23 53.1 kg (117 lb) 09/29/23 54.4 kg (120 lb) 07/29/23 53.5 kg (118 lb) General: alert, healthy, no distress, well nourished, well developed, comfortable, and cooperative Head: Normocephalic, No masses, lesions, tenderness or abnormalities Eye Exam: PERRLA, extraocular movements intact, conjunctiva are pink and non- injected, sclera clear Neck: supple, no adenopathy, no bruits, thyroid normal size, non-tender, without nodularity Heart: regular rate & rhythm, no murmur, and no gallops Lungs: chest symmetric with normal AP diameter, no chest deformities noted, normal respiratory rateand rhythm, no chest wall tenderness, diaphragmatic excursion normal, lungs clear to auscultation Extremities: less than 2 second capillary refill, no joint deformities, effusion, or inflammation, no edema, no skin discoloration, no clubbing, no cyanosis Neuro Exam: alert & oriented x 3 with fluent speech, no focal motor/sensory deficits I have reviewed the following results: CMP Assessment and Plan Lightheaded (Primary) HTN, goal below 140/90 DYSLIPIDEMIA, GOAL TO BE DETERMINED Primary osteoarthritis of right knee Bilateral nonexudative age-related macular degeneration, unspecified stage Follow Up: Return in about 6 weeks (around 11/23/2023) for BP Check in 2 Weeks, Clinic Visit. | For:BP Check in 2 Weeks, Clinic Visit Will pull the hydrochlorothiazide for now monitor her weight and blood pressure. If stable we will keep her off that sensors no document history of congestive heart failure. With a consider since this seems to be so related to her taking her medications whether or not we can effectively decrease other medications. Wrap-Up Time: I spent a total of 40-54 minutes (exact time 45 mins) on the date of service in preparation, delivery, and documentation of the care provided to Rachel Garcia excluding any time spent in the performance of separately billed services. documented in this encounter Nursing Notes * Nino Cohen MED ASSIST - 10/12/2023 1:08 PM EDT The patient has been properly identified by confirmation of name and date of . Chief Complaint Patient presents with Lethargy Macular degeneration in the right eye. Off balance, lethargic, lightheadedness. Patient reports being "off". Had a UTI about a 10 days ago. documented in this encounter Plan of Treatment Upcoming Encounters Date Type Department Care Team (Late st Contact Info) Description 10/21/2023 11:15 AM EDT Office Visit Ophthalmology, [facility] [address] [place] [address] Mina Christiansen DO [address] [place] [address] 10/26/2023 1:30 PM EDT Nurse Only Ancillary [facility] [address] [place] [address] Gloria, Nurse Fam [place] [address] [place] [address] 11/17/2023 11:20 AM EDT Office Visit Family Practice [facility] [place] [address] [place] [address] Sussy Zhu PA-C 200 [facility] [place] [address] 12/29/2023 2:30 PM EDT Office Visit Gynecology/Obstetrics [facility] [address] [email or web address] [place] [address] Ny Mccracken CRNP [address] [place] [address] 03/16/2024 3:45 PM EDT [facility] [address] [place] [address] Qian Dorman MD [address] [place] [address] 07/05/2024 1:00 PM EST Office Visit Gynecology/Obstetrics [facility] [address] [place] [address] Susan Wade CRNP [address] [place] [address] Health Maintenance Due Date Last Done Comments [...] D LEVEL ONCE IN A LIFETIME-USE SMARTSET# 82597 Completed 03/15/2006 Pneumococcal Vaccine: 65+ Years Completed [...] this encounter Medical Devices Implanted Type Area Trimmer Buffing Wheel Device Identifier Shelf Expiration Date Model / Serial / Lot Lens 23.5 M160l - [id number] - [id number] Implanted:Qty: 1 on 10/03/2015 by Arnol Auguste MD at OR [facility] Left: Eye BAUSCH & LOMB : SURGICAL 11/25/2016 [id number] / [id number] / [id number] Lens Intraoc 23.0 - [id number] - [id number] Implanted:Qty: 1 on 06/04/2016 by Flakito Sorto MD at OR [facility] Right: Eye BAUSCH & LOMB 11/25/2020 [id number] / [id number] / documented as of this encounter Visit Diagnoses Diagnosis Lightheaded- Primary Dizziness and giddiness HTN, goal below 140/90 Unspecified essential hypertension DYSLIPIDEMIA, GOAL TO BE DETERMINED Other and unspecified hyperlipidemia Primary osteoarthritis of right knee Primary localized osteoarthrosis, lower leg Bilateral nonexudative age-related macular degeneration, unspecified stage documented in this encounter Advance Directives Latest [...] and were consensually agreed upon. Care Teams Cad Administrator Relationship Specialty Start Date End Date Seun Riddle DO [address] [place] [address] PCP - General Family Medicine 12/25/16 documented as of this encounter
--- OUTSIDE RECORDS SUMMARY | 2023-11-12 03:52 | External Medical Summary | Summary of Care ---
Author Name Unknown Organization [facility] Address [address] [facility] [place] [address] Phone [phone] Care Team Providers Care Information Systems Manager Name Role Phone BarakSeun javier Blas MELCHOR Primary Care Provider [phone] Reason for Visit * Reason Comments Follow Up * Precert (Within 10 days (routine)) - Authorized Specialty Diagnoses / Procedures Referred By Nedra chiang Referred To Contact Ophthalmology Diagnoses Exudative age-related macular degeneration, right eye, with active choroidal neovascularization (HCC) Procedures IN INJECTION, FARICIMAB-SVOA, 0.1 MG IN INTRAVITREAL NJX PHARMACOLOGIC AGT SPX Mina Christiansen DO [address] [place] [address] Referral ID Status Reason Start Date Expiration Date V isits Requested Visits Authorized [id number] Authorized Precert 07/01/2023 06/27/2099 [id number] Encounter Details Date Type Department Care Team (Late st Contact Info) Description 10/21/2023 11:15 AM EDT Office Visit Ophthalmology, [facility] [address] [place] [address] Mina Christiansen DO [address] [place] [address] Exudative age-related macular degeneration of right eye with active choroidal neovascularization (HCC)*; Intermediate stage nonexudative age-related macular degeneration of left eye Allergies Active Allergy Reactions Criticality Noted Date Comments Sulfamethoxazole-Trimethoprim 2019 nausea Nitrofurantoin 2021 nausea Penicillins 03/23/2000 rash Trimethoprim High 04/01/2021 Other reaction(s): Nausea documented as of this encounter (statuses as of 10/21/2023) Medications Medication Sig Dispensed Refills Start Date [...] as of this encounter (statuses as of 10/21/2023) Active Problems Problem Noted Date Diagnosed Date Spinal enthesopathy, cervical region 07/14/2023 Bilateral nonexudative age-related macular degen eration 05/19/2023 Degenerative disc disease, cervical 09/09/2022 Hyperlipidemia 09/09/2022 History of 2019 novel coronavirus disease (COVID -19) 06/10/2022 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 Increased risk for Familial hypercholesterolemia (FH). Please [...] as of this encounter (statuses as of 10/21/2023) Resolved Problems Problem Noted Date Diagnosed Date [...] as of this encounter (statuses as of 10/21/2023) Immunizations Name Administration Dates Next Due COVID-19 [...] on file documented as of this encounter Progress Notes * Mina Christiansen DO - 10/21/2023 11:15 AM EDT [facility] [place] Nursing notes reviewed. Eye vitals reviewed. Mood and Affect: normal HPI: Rachel Garcia is an 82 year old female who presents for evaluation of AMD No other eye complaints. Denies significant pain. Base Eye Exam Visual Acuity (Snellen - Linear) Right Left Dist sc 20/60 20/70 -1 Dist ph sc NI 20/50 Tonometry (Tonopen, 11:24 AM) Right Left Pressure 12 12 Pupils Pupils APD Right PERRL None Left PERRL None Visual Ramirez (Counting fingers) Right Left Full Full Extraocular Movement Right Left Full, Ortho Full, Ortho Neuro/Psych Oriented x3: Yes Dilation Both eyes: 0.5% Proparacaine @ 11:23 AM Dilation #2 Both eyes: 1.0% Mydriacyl, 2.5% Phenylephrine @ 11:23 AM Dilation Comments Patient cautioned that effects of dilation may last 2-7 hours dependant upon individual reaction. It was discussed that driving while dilated is not recommended. EXTERNAL: The ocular adnexae are unremarkable. SLE: Lids/Lashes: wnl OU Conjunctiva/Sclera: quiet OU Cornea: clear OU Anterior Chamber: deep and quiet OU Iris: normal OU; no NVI OU Lens: PCIOL OU s/p YAG PC OU Dilated fundus exam OD: vitreous: PVD optic nerve: 0.55, no edema/pallor/NVD macula: old chorioretinal scar inferotemporal to the fovea with surrounding SRFluid, fresh heme--improved, prior WORSE--recurrent started 12/15/22 vessels: wnl periphery: wnl, no RT/RD Dilated fundus exam OS: vitreous: PVD optic nerve: 0.55, no edema/pallor/NVD macula: scattered drusen vessels: wnl periphery: wnl, no RT/RD OCT Interpretation: OD: srhm, +drusen, +pvd -- STABLE, prior STABLE, prior STABLE, prior STABLE, prior improved 19um ,prior improved 25um prior improved 20um prior worse, prior STABLE, prior STABLE, prior STABLE, prior improved 38um, prior worse 28um, prior STABLE, prior STABLE, prior improved 25um, prior STABLE, prior STABLE, prior STABLE, prior improved 51um, prior worse 64um, prior STABLE, prior improved, prior STABLE, prior STABLE, prior improved 22um prior worse, prior improved 29um, prior worse 18um, prior STABLE, prior no sig change, prior improved, prior worse, prior STABLE, prior STABLE, prior trace worse, prior improved OS: scattered drusen; no SRFluid/CME, +pvd - STABLE, prior stable A/P: 1. 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 -s/p Avastin x 3 (last 06/08/08) -s/p focal laser OD to area of leakage as guided by FA (07/06/08) - s/p Avastin (04-27-19, 03-16-19, 01-19-19, 11-24-18, 10-04-18, 08-23-18, 07-19-18, 06-09-18) - worse on Avastin and new heme on exam - switched to Eylea (04/30/23, 03/29/23, 02/23/23, 01/21/23, 12/15/22, 10/06/22, 07/28/22, 06/02/22, 04/15/22, 03/10/22, 01/28/22, 12/24/21, 10/15/21, 08/07/21, 07/07/21, 06/09/21, 04-28-21, 03/19/21, 02-18-21, 12-11-20, 10-22-20, 09-04-20, 07-17-20, 06-05-20, 04-30-20, 03-26-20, 02-08-20, 01-03-20, 11-21-19, 10-10-19, 08-29-19, 07-19-19, 06-14-19) - worse at 9 and 10 weeks missed appoint due to travel; better at 6-8 weeks - had heme at 9 weeks -3 weeks since injection - worsening heme and metamorphopsia on Eylea- switch to Vabysmo - Vabysmo 09/23/23, 08/19/23, 07/08/23 -4 weeks OS: dry -monitor -An examination for this condition was completed which is unrelated to the procedure that was performed today. -recommend AREDS2 MVI as directed and Amsler grid qday --pt cannot tolerate due to nausea so only taking Lutein 20mg/day 2. Pseudophakia OU - s/p YAG PC OS -monovision F/u 4-6 weeks, OCT OU Mina Christiansen DO CC: Archie Bronson, OD PCP: Seun Riddle DO TIMEOUT PROCEDURE: correct patient identity-YES correct procedure and consent-YES verified side and site-YES correct patient position-YES all necessary equipment/prior studies present-YES reviewed special requirements of this patient-YES PROCEDURE: Intravitreal injection of Vabysmo (faricimab) 6mg OD INFORMED CONSENT: Risks, benefits and alternatives have been discussed with the patient. Risks include, but are not limited to: retinal tears, detachments, hemorrhage, glaucoma, infection, cataracts, need for more procedures and the potential risk of arterial thromboembolic events following use of intravitreal VEGF inhibitors defined as nonfatal stroke, nonfatal myocardial infarction or vascular . Patient is aware of these risks and consents to the procedure. DESCRIPTION OF PROCEDURE: The procedure site was confirmed. Topical proparacaine was applied to the surface of the eye after which subconjunctival anesthetic was administered. The area was prepped in the standard aseptic manner with 5% Betadine solution. An eyelid speculum was placed and 6mg (0.05 ml) of Vabysmo was injected 3.75 mm posterior to the limbus into the midvitreous cavity with a 30 gauge short needle. The eye speculum was removed, Betadine was flushed from the eye and optic nerve perfusion was insured. The patient tolerated the procedure without difficulty and was given followup instructions and instructedto use ophthalmic ointment 3x/day as needed. Mina Christiansen DO, performed the procedure in its entirety. documented in this encounter Nursing Notes * Tamar Cunha LPN - 10/21/2023 11:43 AM EDT Rachel Garcia to receive fourth Vabysmo 6mg Injection of the Right eye. Correct eye confirmed with patient and marked by Mina Christiansen DO Vabysmo 6mg lot # [id number] Exp. Date: 07/2025 * Tamar Cunha LPN - 10/21/2023 11:13 AM EDT Rachel Garcia is a 82 year old year old female who presents for AMD OU. Last Office Visit: 09/23/2023 (in office), Visit date not found (telemedicine) Patient currently states no change in vision. Are you diabetic? No Do you drive? yes OCT image(s) of both eyes acquired and filed/scanned into chart. documented in this encounter Plan of Treatment Upcoming Encounters Date Type Department Care Team (Late st Contact Info) Description 10/26/2023 1:30 PM EDT Nurse Only Ancillary [facility] [place] [address] [place] [address] Gloria, Nurse Fam Prac [facility] [address] [address] 11/17/2023 11:20 AM EDT Office Visit Family Practice [facility] [place] [address] [facility] [place] [address] [address] Sussy Zhu PA-C [address] [facility] [place] [address] 11/25/2023 1:45 PM EDT Office Visit Ophthalmology, [facility] [address] [facility] [place] [address] Mina Christiansen DO [address] [place] [address] 12/29/2023 2:30 PM EDT Office Visit Gynecology/Obstetrics [facility] [address] [facility] [place] [address] Ny Mccracken CRNP [address] [place] [address] 03/16/2024 3:45 PM EDT Office Visit Dermatology [facility] [place] [address] [facility] [place] [address] Qian Dorman MD 200 [facility] [place] [address] 07/05/2024 1:00 PM EST Office Visit Gynecology/Obstetrics [facility] [address] [facility] [place] [address] Susan Wade CRNP [address] [place] [address] Scheduled Orders Name Type Priority Associated Diagnoses Orde r Schedule RETINA SCAN DIAGNOSTIC IMAGE, POSTERIOR Procedures Routine Exudative age-related macular degeneration of right eye with active choroidal neovascularization (HCC) Ordered: 10/21/2023 Health Maintenance Due Date Last Done Comments [...] D LEVEL ONCE IN A LIFETIME-USE SMARTSET# 52846 Completed 03/15/2006 Pneumococcal Vaccine: 65+ Years Completed [...] this encounter Medical Devices Implanted Type Area Home Energy Rater Device Identifier Shelf Expiration Date Model / Serial / Lot Lens 23.5 M160l - [id number] - [id number] Implanted:Qty: 1 on 10/03/2015 by Anrol Auguste MD at OR [facility] Left: Eye BAUSCH [employer] LOMB : SURGICAL 11/25/2016 [id number]-45.5 / [id number] / [id number] Lens Intraoc 23.0 - [id number] - [id number] Implanted:Qty: 1 on 06/04/2016 by Flakito Sorto MD at [facility] Right: Eye BAUSCH & LOMB 11/25/2020 [id number] / [id number] / documented as of this encounter Visit Diagnoses Diagnosis Exudative age-related macular degeneration of right eye with active choroidal neovascularization (HCC)- Primary Intermediate stage nonexudative age-related macular degeneration of left eye documented in this encounter Administered Medications Active Administered Medications - up to 3 most recent administrations Medication Order MAR Action Action Date Dose Rate Site Faricimab-svoa (Vabysmo) intravitreal inj 6 mg 6 mg, Intravitreal, PRN Other, Starting on Marisol 07/08/23 at 1335, Until Wed07/07/24 at 1334, For 365 days, Each single dose vial and transfer filter needle should only be used for the treatment of a single eye. Given 10/21/2023 11:45 AM EDT 6 mg Eye Right Given 09/23/2023 2:10 PM EDT 6 mg Ey e Right Given 08/19/2023 3:39 PM EST 6 mg Ey e Right ROPivacaine (Naropin) inj 1.5 mg 1.5 mg, Injection, PRN Other, Starting on Marisol 01/21/23 at 1127, Until Wed01/21/24 at 1126, For 365 days Given 10/21/2023 11:45 AM EDT 1.5 mg Eye Right Given 09/23/2023 2:09 PM EDT 1.5 mg Ey e Right Given 08/19/2023 3:39 PM EST 1.5 mg Ey e Right documented in this encounter Advance Directives Latest [...] and were consensually agreed upon. Care Teams Information Systems Manager Relationship Specialty Start Date End Date Seun Riddle DO [address] [place] [address] PCP - General Family Medicine 12/25/16 documented as of this encounter
[2023-11-12 05:51] LABS: Basophils # (auto) 0.03 K/uL (0.00-0.20); Basophils % (auto) 0.4 %; Eosinophils # (auto) 0.25 K/uL (0.00-0.50); Eosinophils % (auto) 3.2 %; Hemoglobin 12.4 g/dl (12.0-16.0); Immature Granulocytes # (auto) 0.03 K/uL (0.01-0.20); Immature Granulocytes % (auto) 0.4 %; Lymphocytes # (auto) 1.84 K/uL (1.20-3.40); Lymphocytes % (auto) 23.6 %; Mean Corpuscular Hemoglobin 31.8 pg (25.0-34.0); Mean Corpuscular Hgb Conc 33.5 g/dL (32.0-36.0); Mean Corpuscular Volume 94.9 fL (80.0-100.0); Mean Platelet Volume 9.7 fL (9.4-12.4); Monocytes # (auto) 0.85 K/uL (0.11-0.59); Monocytes % (auto) 10.9 %; Neutrophils # (auto) 4.79 K/uL (1.40-6.50); Neutrophils % (auto) 61.5 %; Platelet Count 163 K/uL (130-400); RDW Coefficient of Variation 13.6 % (11.5-14.5); RDW Standard Deviation 47.5 fL (36.4-46.3); White Blood Count 7.79 K/ul (4.8-10.8)
[2023-11-12 06:07] LABS: BUN Creatinine Ratio 25.8 (10-20); Calcium 8.8 mg/dl (8.6-10.3); Creatinine Clr Calc Pharmacy 56.7 ml/min; Est GFR (African American) 96.6 ml/min; Est GFR (Non-African American) 83.4 ml/min; Magnesium 1.8 mg/dl (1.7-2.4); Phosphorus 3.5 mg/dl (2.5-4.9); Potassium 3.9 mmol/L (3.5-5.1)
[2023-11-12] MEDS: AZITHROMYCIN 250 MG TAB PO SCH (08:40)
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
--- NOTE | 2023-11-12 13:58 | Neurology Consultation ---
Date of Consultation November 12, 2023 Assessment & Plan (1) Encephalopathy: Suspected to be related to her UTI. MRI of the brain reviewed with no evidence of acute ischemic stroke, chronic microangiopathy is present. MRA of the head and neck showed no significant stenosis. 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 Plan Continue aspirin and statin for stroke prevention. Continue to treat UTI. Hydration, and early treatment of UTIs. Follow-up with PCP as an outpatient Telehealth Consultation Telehealth Information Telehealth Information: I performed this visit using a real-time telehealth connection between my location and the patients location ([facility]). After connecting through interactive tele-video, patient was identified by name and date of and/or wristband check.Patient (or authorized healthcare public relations representative) was informed that this was a telemedicine visit and it was being conducted confidentially over secure lines. My office door was closed and no one else was present in the room with me.Patient (or authorized healthcare public relations representative) provided consent to proceed with the visit, expressed an understanding of privacy and security of the telemedicine visit, and gave permission to have a hospital public relations representative in the room in order to assist with the visit and to conduct portions of the visit, as needed. I informed the patient (or authorized healthcare public relations representative) that I reviewed their record and presented the opportunity for them to ask any questions regarding the visit today. The patient agreed to participate. History of Present Illness Reason for Consultation: An episode of confusion with question of aphasia Requesting Physician: Dr Sarah Attending Physician: Karla Sarah MD History of Present Illness Rachel Garcia is an 82-year-old female patient with PMH of valvular heart disease, uncontrolled hypertension, HLP, degenerative disc disease. Who has presented to the hospital with generalized weakness associated with some confusion and difficulty finding her words. This complaint has been occurring over the past 3 weeks, associated with dizziness. She reports that her UTIs are not alarming typically with no pains or burning in the urine, she only feels lightheaded and tired. She also feels that her vision gets blurry, when she has those UTIs. Her son had an ischemic stroke with aphasia so they were questioning if the patient had a TIA or ischemic stroke. She denies any numbness or weakness anywhere in her body, she does report chronic right knee osteoarthritis that she sees a chiropractor for. Whenever the knee is aggravated she usually feels imbalance. She has given up driving 2 months ago because of visual issues, has been somehow forgetful. Allergies Allergy/AdvReac Type Severity Reaction Status Date / Time sulfamethoxazole Allergy Severe Nausea Verified 11/10/23 22:34 [From Bactrim] trimethoprim [From Bactrim] Allergy Severe Nausea Verified 11/10/23 22:34 Penicillins Allergy Intermediate Rash Verified 11/10/23 22:34 nitrofurantoin AdvReac Mild Nausea Verified 11/10/23 22:34 [From Macrobid] Home Medications Medication Instructions Recorded Confirmed Type albuterol sulfate 90 mcg/actuation 2 puff inhalation QID Shortness Of 06/27/18 11/10/23 History aerosol inhaler (ProAir HFA) Breath aspirin 81 mg tablet,delayed 81 mg PO HS 06/27/18 11/10/23 History release vitamins A,C,F-vwuw-rvcfqt 2,148 1 tab PO BID 06/27/18 11/10/23 History mcg-113 mg-45 mg-17.4 mg tablet (PreserVision AREDS) hydrochlorothiazide 12.5 mg tablet 12.5 mg PO .ON HOLD CURRENTLY 03/09/19 11/10/23 History cholecalciferol (vitamin D3) 25 25 mcg PO QAM 04/01/21 11/10/23 History mcg (1,000 unit) capsule (Vitamin D3) faricimab-svoa 6 mg/0.05 mL 6 mg intravitreal .Q6WK 10/03/23 11/10/23 History intravitreal solution (Vabysmo) losartan 25 mg tablet 25 mg PO QAM 10/03/23 11/10/23 History metoprolol succinate 50 mg See Rx Instructions .Route .COMPLEX 10/03/23 11/10/23 History tablet,extended release 24 hr naproxen sodium 220 mg tablet 220 mg PO Q8H PRN Pain 10/03/23 11/10/23 History (Aleve) ondansetron HCl 4 mg tablet 4 mg PO Q6H PRN NAUSEA/VOMITING 10/03/23 11/10/23 History rosuvastatin 40 mg tablet 40 mg PO .CURRENTLY ON HOLD 10/03/23 11/10/23 History Patient History Surgical History No pertinent past surgical history Family History Mother Myocardial infarction Son Stroke Social History Smoking Status: Former smoker Tobacco Type: Cigarettes Second Hand Exposure: No; Do You Dip or Chew Tobacco: No; Tobacco Cessation Education Requested by Patient: No Hx Alcohol Use: Yes Hx Substance Use: No Preferred Language: Pashto Communication Ability: Effective 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 Director Required: No Beliefs That Will Affect Care: None marital status: Current Living Situation: Alone Current Living Situation Comment: [facility] [employer] current occupational status: retired Other Information That Helps Us Care for You: No Feels Safe at Home: Yes Safety Concerns: Feels Safe At This Time Assistive Devices: Cane and Walker Review of Systems Review of systems was performed and is negative except for the points mentioned in HPI Physical Exam General Constitutional: Appearance normally developed Head and face: normocephalic and atraumatic Eyes: no ptosis, no anisocoria, and no dysconjugate gaze Respiratory: normal effort Cardiovascular: regular rhythm and regular rate Abdomen: non distended Skin: no rashes, lesions, or ulcers noted Psychiatric: normal judgement and insight, normal mood, and normal affect NEUROLOGIC EXAMINATION: Mental Status:alert, oriented to time, place, person, normal recent memory, normal remote memory, normal attention span, normal concentration, normal l anguage and normal fund of knowledge Cranial Nerves: CN 2 -right visual field defect and pupils round, equal, reactive to light CN 3, 4, 6 - extra-ocular movements intact and no nystagmus CN 5 - facial sensation intact CN 7 - no facial asymmetry CN 8 - intact hearing CN 9, 10 - palate symmetric, normal gag CN 11 - good shoulder shrug CN 12 - tongue midline MOTOR: Strength was at least antigravity throughout, Pronator drift was absent and There were no abnormal movements SENSATION: intact and symmetric to pinprick, light touch, vibration and joint position GAIT: stable, no ataxia . COORDINATION: no ataxia with finger to nose testing and heel to altamirano testing REFLEXES: cannot assess over telemedicine Results & Data Vital Signs (Past 12 Hours) Vital Signs Temp Pulse Pulse Resp BP Pulse Ox O2 Del Method 11/12/23 11:27 36.5 C 69 20 116/69 96 Room Air 11/12/23 08:00 Room Air 11/12/23 07:58 36.6 C 98 H 18 123/77 92 Room Air 11/12/23 07:13 68 11/12/23 07:00 11/12/23 04:01 36.4 C L 73 16 136/70 96 Room Air O2 Del Method 11/12/23 11:27 11/12/23 08:00 11/12/23 07:58 11/12/23 07:13 11/12/23 07:00 Room Air 11/12/23 04:01 Laboratory Results Abnormal lab results 11/12/23 Range/Units 05:24 RBC 3.90 L (4.20-5.40) M/uL RDW Std Deviation 47.5 H (36.4-46.3) fL Cotton # (Auto) 0.85 H (0.11-0.59) K/uL Sodium 134 L (136-145) mmol/L BUN/Creatinine Ratio 25.8 H (10-20) urinalysis positive for UTI Diagnostic Findings MRI brain 11/09/2024: FINDINGS: Brain: Mild nonspecific white matter changes. The flow voids at the base of the brain are intact. No mass. No hemorrhage. No acute infarct. Ventricles: Mild ventricular megaly. Bones/joints: Unremarkable. No acute fracture. Sinuses: Unremarkable as visualized. No acute sinusitis. Mastoid air cells: Unremarkable as visualized. No mastoid effusion. Orbits: Bilateral lens replacements. IMPRESSION: No evidence of acute intracranial pathology. MRA head 11/09/2024: FINDINGS: Right internal carotid artery: No acute findings. Intracranial segment is patent with no significant stenosis. No aneurysm. Right anterior cerebral artery: Unremarkable. No occlusion or significant stenosis. No aneurysm. Right middle cerebral artery: Unremarkable. No occlusion or significant stenosis. No aneurysm. Right posterior cerebral artery: Unremarkable. No occlusion or significant stenosis. No aneurysm. Right vertebral artery: Unremarkable as visualized. Left internal carotid artery: No acute findings. Intracranial segment is patent with no significant stenosis. No aneurysm. Left anterior cerebral artery: Unremarkable. No occlusion or significant stenosis. No aneurysm. Left middle cerebral artery: Unremarkable. No occlusion or significant stenosis. No aneurysm. Left posterior cerebral artery: Unremarkable. No occlusion or significant stenosis. No aneurysm. Left vertebral artery: Unremarkable as visualized. Basilar artery: Unremarkable. No occlusion or significant stenosis. No aneurysm. IMPRESSION: Negative MRA of the brain. Duplex scan of the carotids : FINDINGS: Antegrade flow is seen in the bilateral vertebral arteries. Mild to moderate calcified plaque within the bilateral carotid bifurcations. The peak systolic velocity within the right ICA is 73 cm/s. The right systolic ratio is 1.1. The peak systolic velocity within the left ICA is 98 cm/s. The left systolic ratio is 1.4. IMPRESSION: No hemodynamically significant stenosis seen within the carotid arteries. EK11/09/2024: Normal sinus rhythm Normal ECG When compared with ECG of 03-OCT-2023 15:43, No significant change was found Confirmed by Mina Davis ([id number]) on 11/11/2023 8:01:34 AM Echocardiogram 11/11/2023: Severe mitral annular calcification, left ventricular fraction more than 70%, moderate mitral regurgitation, the interatrial septum is intact with no PFO or ASD.. Left ventricular concentric hypertrophy Medications Administered Home Medications Medication Instructions Recorded Confirmed Last Taken albuterol sulfate 90 mcg/actuation 2 puff inhalation QID Shortness Of 06/27/18 11/10/23 03/31/21 aerosol inhaler (ProAir HFA) Breath aspirin 81 mg tablet,delayed 81 mg PO HS 06/27/18 11/10/23 11/09/23 release vitamins A,C,V-uvfs-vkitzt 2,148 1 tab PO BID 06/27/18 11/10/23 10/03/23 08:00 mcg-113 mg-45 mg-17.4 mg tablet (PreserVision AREDS) hydrochlorothiazide 12.5 mg tablet 12.5 mg PO .ON HOLD CURRENTLY 03/09/19 11/10/23 10/03/23 cholecalciferol (vitamin D3) 25 25 mcg PO QAM 04/01/21 11/10/23 11/10/23 mcg (1,000 unit) capsule (Vitamin D3) faricimab-svoa 6 mg/0.05 mL 6 mg intravitreal .Q6WK 10/03/23 11/10/23 09/23/23 intravitreal solution (Vabysmo) losartan 25 mg tablet 25 mg PO QAM 10/03/23 11/10/23 11/10/23 metoprolol succinate 50 mg See Rx Instructions .Route .COMPLEX 10/03/23 11/10/23 11/10/23 tablet,extended release 24 hr am 50mg naproxen sodium 220 mg tablet 220 mg PO Q8H PRN Pain 10/03/23 11/10/23 Unknown (Aleve) ondansetron HCl 4 mg tablet 4 mg PO Q6H PRN NAUSEA/VOMITING 10/03/23 11/10/23 Unknown rosuvastatin 40 mg tablet 40 mg PO .CURRENTLY ON HOLD 10/03/23 11/10/23 10/03/23 Active Medications Generic Name Dose Route Start Last Admin Trade Name Freq PRN Reason Stop Dose Admin Aspirin 81 mg 11/11/23 21:00 11/11/23 20:32 Aspirin 81 Mg Ectab PO 12/11/23 20:59 81 mg HS CLAUDETTE Administration Azithromycin 500 mg 11/12/23 09:00 11/12/23 08:40 Azithromycin 250 Mg Tab PO 11/14/23 09:01 500 mg QAM CLAUDETTE Administration Enoxaparin Sodium 30 mg 11/11/23 09:00 11/12/23 08:40 Enoxaparin Inj 30 Mg/0.3 Ml Syr SQ 12/11/23 08:59 30 mg QAM CLAUDETTE Administration Ceftriaxone Sodium 2,000 mg in 50 mls @ 100 mls/hr 11/11/23 22:00 11/11/23 21:45 Rocephin IV 11/21/23 21:59 Infused Q24H CLAUDETTE Infusion Metoprolol Succinate 25 mg 11/11/23 09:00 11/12/23 08:40 Metoprolol Succ 25mg Ext Rel Tab PO 12/11/23 08:59 25 mg BID CLAUDETTE Administration
[2023-11-13 06:22] LABS: Basophils # (auto) 0.04 K/uL (0.00-0.20); Basophils % (auto) 0.5 %; Eosinophils # (auto) 0.24 K/uL (0.00-0.50); Eosinophils % (auto) 3.3 %; Hematocrit (blood only) 36.8 % (37.0-47.0); Hemoglobin 12.4 g/dl (12.0-16.0); Immature Granulocytes # (auto) 0.05 K/uL (0.01-0.20); Immature Granulocytes % (auto) 0.7 %; Lymphocytes # (auto) 1.58 K/uL (1.20-3.40); Lymphocytes % (auto) 21.6 %; Mean Corpuscular Hgb Conc 33.7 g/dL (32.0-36.0); Mean Corpuscular Volume 94.8 fL (80.0-100.0); Mean Platelet Volume 10.3 fL (9.4-12.4); Monocytes # (auto) 0.79 K/uL (0.11-0.59); Monocytes % (auto) 10.8 %; Neutrophils % (auto) 63.1 %; Platelet Count 160 K/uL (130-400); RDW Coefficient of Variation 13.5 % (11.5-14.5); RDW Standard Deviation 47.2 fL (36.4-46.3); Red Blood Count 3.88 M/uL (4.20-5.40)
[2023-11-13 06:37] LABS: BUN Creatinine Ratio 30.9 (10-20); Calcium 8.8 mg/dl (8.6-10.3); Creatinine Clr Calc Pharmacy 63.5 ml/min; Est GFR (African American) 100.5 ml/min; Est GFR (Non-African American) 86.7 ml/min; Magnesium 1.7 mg/dl (1.7-2.4); Phosphorus 3.5 mg/dl (2.5-4.9); Potassium 3.5 mmol/L (3.5-5.1)
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
== END 2023-11-13 11:54 | disposition home health service (06) | DRG 689 ==
LOC: ED 18:41 → EDINP 22:17 → 2N 11-11 10:43

== ENCOUNTER 2023-12-12 09:06 | Inpatient (IN) ==
--- OUTSIDE RECORDS SUMMARY | 2023-12-12 09:11 | External Medical Summary | Summary of Care ---
Author Name Unknown Organization [facility] Address [address] [facility] [address] Phone [phone] Care Team Providers Care Product Expert Name Role Phone BarakSeun javier Blas MELCHOR Primary Care Provider [phone] Reason for Visit * Reason Comments Follow Up * Precert (Within 10 days (routine)) - Authorized Specialty Diagnoses / Procedures Referred By Nedra chiang Referred To Contact Ophthalmology Diagnoses Exudative age-related macular degeneration, right eye, with active choroidal neovascularization (HCC) Procedures HI INJECTION, FARICIMAB-SVOA, 0.1 MG HI INTRAVITREAL NJX PHARMACOLOGIC AGT SPX Mina Christiansen DO [address] [place] [address] Referral ID Status Reason Start Date Expiration Date V isits Requested Visits Authorized [id number] Authorized Precert 07/01/2023 06/27/2099 [id number] Encounter Details Date Type Department Care Team (Late st Contact Info) Description 11/30/2023 10:30 AM EDT Office Visit Ophthalmology, [facility] [address] [place] [address] Mina Christiansen DO [address] [place] [address] Exudative age-related macular degeneration of right eye with active choroidal neovascularization (HCC)* Allergies Active Allergy Reactions Criticality Noted Date Comments Sulfamethoxazole-Trimethoprim 2019 nausea Nitrofurantoin 2021 nausea Penicillins 03/23/2000 rash Trimethoprim High 04/01/2021 Other reaction(s): Nausea documented as of this encounter (statuses as of 11/30/2023) Medications Medication Sig Dispensed Refills Start Date End Date Status ASPIRIN 81 MG PO TABS one tab by mouth daily 34 5 06/30/2005 Active Cholecalciferol (VITAMIN D-3) 25 MCG (1000 UT) Capsule Take 1 Capsule by mouth in the morning. Active PreserVision AREDS 2+Multi Vit Oral Capsule Active Naproxen Sodium 220 MG Oral Tablet as needed. Active Rosuvastatin Calcium 40 MG Oral Tablet (Crestor) Take 1 Tablet by mouth in the morning. 100 Tablet 3 04/01/2023 Active Ondansetron HCl 4 MG Oral TabletIndications:N ausea without vomiting Take 1 Tablet by mouth every 6 hours as needed for Nausea. 30 Tablet 5 07/21/2023 Active Albuterol Sulfate HFA 108 (90 Base) MCG/ACT Inhalation Aerosol SolutionIndications :Bronchospasm, exercise-induced INHALE 2 PUFFS BY MOUTH FOUR TIMES A DAY 18 g 3 11/01/2023 Active Metoprolol Succinate ER 25 MG Oral Tablet Extended Release 24 Hour (Toprol XL) Take one tablet by mouth daily in the morning and one tablet daily in the evening. 180 Tablet 3 11/17/2023 Active Estradiol 0.1 MG/GM Vaginal Cream (Estrace) Apply pea sized amount (0.5 gm) vaginally every other night 136.607 g 3 11/24/2023 Active Losartan Potassium 25 MG Oral Tablet (Cozaar)Indications :HTN, goal below 140/90 Take 1 Tablet by mouth in the morning. In the morning.. 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 Increased risk for Familial hypercholesterolemia (FH). [...] as of this encounter (statuses as of 11/30/2023) Resolved Problems Problem Noted Date Diagnosed Date [...] as of this encounter (statuses as of 11/30/2023) Immunizations Name Administration Dates Next Due COVID-19 mRNA, LNP-s, No Pre serve, 2-Dose Series (MacroCure) 10/01/2021,04/07/2021,09/14/2020,08/24 COVID-19, LNP-s, No Preserve , Yimi-sucrose, Ages 12+ (MacroCure) 04/04/2022 H1N1 2009 Influenza, IM 07/27/2009 PPD 06/30/2013, 2,08/02/2009,07/11 Pneumococcal Conjugate Vacc, 13 Valent (Prevnar) 05/21/2014 Pneumococcal Polysaccharide PPV23 (Pneumovax) 05/05/2006 RSV Vac., Bivalent, Perfusio n F, Pf,0.5 Ml (Abrysvo) 03/26/2023 Season Influenza, Quad, PF, Adjuvanted, 65+ Yrs, [...] Vaccine (Adult) 08/02/2009 Zoster Vaccine Recombinant (Shingrix) ,08/31/2019,08/24/2019,08/02 documented as of this encounter Social History [...] Progress Notes * Mina Christiansen DO - 11/30/2023 10:30 AM EDT [facility] [place] Nursing notes reviewed. Eye vitals reviewed. Mood and Affect: normal HPI: Rachel Garcia is an 82 year old female who presents for evaluation of AMD No other eye complaints. Denies significant pain. Base Eye Exam Visual Acuity (Snellen - Linear) Right Left Dist sc 20/40 -2 20/30 -1 Dist ph sc 20/40 +1 Tonometry (Tonopen, 10:39 AM) Right Left Pressure 9 11 Tonometry #2 (Tonopen, 10:39 AM) Right Left Pressure 8 Tonometry #3 (Tonopen, 10:39 AM) Right Left Pressure 8 Pupils Pupils APD Right PERRL None Left PERRL Visual Ramirez (Counting fingers) Right Left Full Full Extraocular Movement Right Left Full, Ortho Full, Ortho Neuro/Psych Oriented x3: Yes Dilation Both eyes: 0.5% Proparacaine @ 10:38 AM Dilation #2 Both eyes: 1.0% Mydriacyl, 2.5% Phenylephrine @ 10:38 AM Dilation Comments Patient cautioned that effects [...] - worsening heme and metamorphopsia on Eylea- switched to Vabysmo - Vabysmo 10/21/23, 09/23/23, 08/19/23, 07/08/23 -6 weeks OS: dry -monitor -An examination for this condition was completed which is unrelated to the procedure that was performed today. -recommend AREDS2 MVI as directed and Amsler grid qday --pt cannot tolerate due to nausea so only taking Lutein 20mg/day 2. Pseudophakia OU - s/p YAG PC OS -monovision F/u 6-8 weeks, OCT OU Mina Christiansen DO CC: [...] documented in this encounter Nursing Notes * Bri Horowitz TECH - 11/30/2023 11:00 AM EDT Rachel Garcia to receive fifth Vabysmo 6mg Injection of the Right eye. Correct eye confirmed with patient and marked by Mina Christiansen DO Vabysmo 6mg lot # [id number] Exp. Date: 08/2025 * Tamar Cunha LPN - 11/30/2023 10:27 AM EDT Rachel Garcia is a 82 year old year old female who presents for AMD OU. Last Office Visit: 10/21/2023 (in office), Visit date not found (telemedicine) Patient currently states no change in vision. Are you diabetic? No Do you drive? no OCT image(s) of both eyes acquired and filed/scanned into chart. documented in this encounter Plan of Treatment Upcoming Encounters Date Type Department Care Team (Late st Contact Info) Description 12/02/2023 1:30 PM EDT Imaging Radiology [facility] Torrez [address] [facility] [place] [address] 12/29/2023 2:30 PM EDT Office Visit Gynecology/Obstetrics Alix Veliz [address] [place] [address] Ny Mccracken CRNP [address] [place] [address] 01/10/2024 10:45 AM EDT Office Visit Urogynecology Alix Veliz [address] [place] [address] Diogo Cornelius MD [address] [place] [address] Nurse Benigno Veliz [address] [place] [address] 02/17/2024 2:00 PM EDT Office Visit Family Practice [facility] [place] [address] [place] [address] Sussy Zhu PA-C [address] [place] [address] 03/16/2024 3:45 PM EDT Office Visit Dermatology [facility] [place] [address] [place] [address] Qian Dorman MD [address] [place] [address] 07/05/2024 1:00 PM EST Office Visit Gynecology/Obstetrics Alix Veliz [address] [place] [address] Backer, MACIE Aldrich [address] [place] [address] Scheduled Orders Name Type Priority Associated Diagnoses Orde r Schedule RETINA SCAN DIAGNOSTIC IMAGE, POSTERIOR Procedures Routine Exudative age-related macular degeneration of right eye with active choroidal neovascularization (HCC) Ordered: 11/30/2023 Health Maintenance Due Date Last Done Comments DXA Scan 04/30/2016 04/30/2014, 03/29, 04/18/2012, Additional history exists COVID-19 Vaccine (2022- season) 2023 04/04/2022, 10/01/2021, 04/07/2021, Additional history exists Depression Screening 05/18/2023 05/18/2022, 06/29/2017 (Discussed) DTaP,Tdap,and Td Vaccines (2 - Td or Tdap) 06/30/2023 06/30/2013, 06/30/2005, 06/30/2005 GFR 03/30/2024 03/30/2023, 08/27, 08/14/2022, Additional history exists Albumin/Creatinine Ratio 09/11/2024 09/11/2021 VITAMIN D LEVEL ONCE IN A LIFETIME-USE SMARTSET# [id number] Completed 03/15/2006 Pneumococcal Vaccine: 65+ Years Completed 05/21/2014, 05/05/2006 *BISPHONATE OR OTHER ACCEPTABLE MEDICATION NEEDED FOR OSTEOPOROSIS (REFER TO SMARTSET #1146) Addressed 06/29/2017 (Refused) Overridden wi th the intention of not completing the topic Zoster Vaccines Completed 02/15/2020, 10/2019, 08/24/2019, Additional history exists Influenza Vaccine (FLU shot) [...] this encounter Medical Devices Implanted Type Area Linen Tech Device Identifier Shelf Expiration Date Model / Serial / Lot Lens 23.5 M160l - [id number] - [id number] Implanted:Qty: 1 on 10/03/2015 by Arnol Auguste MD at OR [facility] Left: Eye [employer] : SURGICAL 11/25/2016 [id number]-01.5 / [id number] / [id number] Lens Intraoc 23.0 - [id number] - [id number] Implanted:Qty: 1 on 06/04/2016 by Flakito Sorto MD at OR [facility] Right: Eye [employer] 11/25/2020 [id number] / [id number] / documented as of this encounter Visit Diagnoses Diagnosis Exudative age-related macular degeneration of right eye with active choroidal neovascularization (HCC)- Primary documented in this encounter Administered Medications Active [...] the treatment of a single eye. Given 11/30/2023 11:01 AM EDT 6 mg Eye Right Given 10/21/2023 11:45 AM EDT 6 mg E ye Right Given 09/23/2023 2:10 PM EDT 6 mg Ey e Right ROPivacaine (Naropin) inj 1.5 mg 1.5 mg, Injection, PRN Other, Starting on Marisol 01/21/23 at 1127, Until Wed01/21/24 at 1126, For 365 days Given 11/30/2023 11:01 AM EDT 1.5 mg Eye Right Given 10/21/2023 11:45 AM EDT 1.5 mg E ye Right Given 09/23/2023 2:09 PM EDT 1.5 mg Ey e Right documented in this encounter Advance Directives * Full Code (Latest Code Status on File) Date Activated Date Inactivated Comments 06/04/2016 10:57 AM 06/04/2016 5:42 PM This order reflects the patients wishes and were consensually agreed upon. * Full Code Date Activated Date Inactivated Comments 10/03/2015 6:23 AM 10/03/2015 12:29 PM This order re flects the patients wishes and were consensually agreed upon. Care Teams Product Expert Relationship Specialty Start Date End Date Seun Riddle DO [address] [place] [address] PCP - General Family Medicine 12/25/16 documented as of this encounter
--- OUTSIDE RECORDS SUMMARY | 2023-12-12 09:12 | External Medical Summary | Summary of Care ---
Author Name Unknown Organization [facility] Address [address] [facility] [place] [address] Phone [phone] Care Team Providers Care Assistant [employer] Name Role Phone VenkateshSeun Blas MELCHOR Primary Care Provider [phone] Reason for Referral * Evaluate & Treat - Unlimited Visits (Within 30 days (routine)) - Authorized Specialty Diagnoses / Procedures Referred By Nedra chiang Referred To Contact SURFACE HYDROLOGIST - Urogynecology / Gynecology Urology Diagnoses Recurrent UTI Problem with vaginal pessary, subsequent encounter Sussy Zhu PA-C [address] [place] [address] Referral ID Status Reason Start Date Expiration Date Visits Requested Visits Authorized [id number] Authorized Specialty Services Required 11/17/[phone] Question Answer Referral Priority Within 30 days (routine) Where should this appointment be scheduled? [facility] What condition is the patient being referred for? Chronic Bladder Pain/Interstitial Cystitis/Dysuria Reason for Visit * Reason Comments Hospital Follow-Up Encounter Details Date Type Department Care Team (Late st Contact Info) Description 11/17/2023 11:20 AM EDT Office Visit Family Practice [facility] [place] [address] [place] [address] Sussy Zhu PA-C [address] [place] [address] HTN, goal below 140/90*; Recurrent UTI; Problem with vaginal pessary, subsequent encounter; Bronchospasm, exercise-induced Allergies Active Allergy Reactions Criticality Noted Date Comments Sulfamethoxazole-Trimethoprim 2019 nausea Nitrofurantoin 2021 nausea Penicillins 03/23/2000 rash Trimethoprim High 04/01/2021 Other reaction(s): Nausea documented as of this encounter (statuses as of 11/17/2023) Medications Medication Sig Dispensed Refills Start Date End Date Status ASPIRIN 81 MG PO TABS one tab by mouth daily 34 5 06/30/2005 Active Cholecalciferol (VITAMIN D-3) 25 MCG (1000 UT) Capsule Take 1 Capsule by mouth in the morning. Active PreserVision AREDS 2+Multi Vit Oral Capsule Active Losartan Potassium 25 MG Oral Tablet (Cozaar)Indicati ons:HTN, goal below 140/90 take 1 tablet by mouth every morning 90 Tablet 3 11/25/2022 Active Naproxen Sodium 220 MG Oral Tablet as needed. Active Rosuvastatin Calcium 40 MG Oral Tablet (Crestor) Take 1 Tablet by mouth in the morning. 100 Tablet 3 04/01/2023 Active Ondansetron HCl 4 MG Oral TabletIndication s:Nausea without vomiting Take 1 Tablet by mouth every 6 hours as needed for Nausea. 30 Tablet 5 07/21/2023 Active Albuterol Sulfate HFA 108 (90 Base) MCG/ACT Inhalation Aerosol SolutionIndicati ons:Bronchospasm , exercise-induced INHALE 2 PUFFS BY MOUTH FOUR TIMES A DAY 18 g 3 11/01/2023 Active Metoprolol Succinate ER 25 MG Oral Tablet Extended Release 24 Hour (Toprol XL) Take one tablet by mouth daily in the morning and one tablet daily in the evening. 180 Tablet 3 11/17/2023 Active vitamin c (ASCORBIC ACID) 500 MG Tablet Take 1 Tablet by mouth in the morning. 4 Discontinued(Medi cation List Clean Up) hydroCHLOROthiaz nishant 12.5 MG Oral Tablet (Hydrodiuril) take 1 tablet by mouth once daily 90 Tablet 1 05/27/2023 4 Discontinued(Medi cation List Clean Up) Metoprolol Succinate ER 50 MG Oral Tablet Extended Release 24 Hour (Toprol XL) Take one tablet by mouth daily in the morning and one half tablet daily in the evening. 135 Tablet 3 08/26/2023 4 Discontinued Cephalexin 500 MG Oral Capsule Take 1 Capsule by mouth in the morning and 1 Capsule before bedtime. Do all this for 10 days. 20 Capsule 10/26/2023 4 Discontinued(Medi [facility] List Clean Up) Metoprolol Succinate ER 25 MG Oral Tablet Extended Release 24 Hour (Toprol XL) Take one tablet by mouth daily in the morning and one half tablet daily in the evening. 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 Increased risk for Familial hypercholesterolemia (FH). Please [...] as of this encounter (statuses as of 11/17/2023) Resolved Problems Problem Noted Date Diagnosed Date [...] as of this encounter (statuses as of 11/17/2023) Immunizations Name Administration Dates Next Due COVID-19 [...] Sign Reading Time Taken Comments Blood Pressure 128/60 11/17/2023 11:41 AM EDT Pulse 76 11/17/2023 11:41 AM EDT Temperature 36.6 C (97.8 F) 11/17/2023 11:41 AM E DT Respiratory Rate 16 11/17/2023 11:41 AM EDT Oxygen Saturation 97% 11/17/2023 11:41 AM EDT Inhaled Oxygen Concentration - - Weight 51.4 kg (113 lb 6.4 oz) 11/17/2023 11:41 AM EDT Height - - Body Mass Index 21.43 09/29/2023 2:30 PM EDT documented in this encounter Progress Notes * Sussy Zhu PA-C - 11/17/2023 12:31 PM EDT Images from the original note were not included. History of Present Illness Rachel Garcia is a 82 year old female that presents for Hospital Follow-Up Patient is a 82 year old female who presents for a follow up after recent hospitralization. Was hospitalized from 11/09-11/13/23. At the time of presentation she was found to be confused, dizzy. After evaluation was found to have elevated blood pressure, uti, bronchitis. No stroke, mi. Since hospital discharge she notes her dizzy condition has gone. Appetite fair Sleep normal Urination/ bowel movements good Physical Exam Vitals: 11/17/23 1141 Temp: 36.6 C (97.8 F) Pulse: 76 Resp: 16 SpO2: 97% BP: 128/60 BP Readings from Last 3 Encounters: 11/17/23 128/60 10/26/23 136/76 10/12/23 120/60 Wt Readings from Last 3 Encounters: 11/17/23 51.4 kg (113 lb 6.4 oz) 10/12/23 53.1 kg (117 lb) 09/29/23 54.4 kg (120 lb) General: alert, healthy, no distress, well [...] no skin discoloration, no clubbing, no cyanosis I have reviewed the following results: CBC and BMP Assessment and Plan HTN, goal below 140/90 (Primary) Recurrent UTI - UROGYNECOLOGY CLINIC REFERRAL OP (FEMALE ONLY) Problem with vaginal pessary, subsequent encounter - UROGYNECOLOGY CLINIC REFERRAL OP (FEMALE ONLY) Bronchospasm, exercise-induced Other orders - Metoprolol Succinate ER 25 MG Oral Tablet Extended Release 24 Hour (Toprol XL); Take one tablet by mouth daily in the morning and one tablet daily in the evening. Follow Up: Return in about 3 months (around 02/17/2024) for Clinic Visit. | For: Clinic Visit Wrap-Up Time: I spent a total of 40-54 minutes (exact time 45 mins) on the date of service in preparation, delivery, and documentation of the care provided to Rachel Garcia excluding any time spent in the performance of separately billed services. documented in this encounter Nursing Notes * Lynette Pate LPN - 11/17/2023 11:34 AM EDT Rachel Garcia presents for hospital follow up. Medications & HM reviewed. documented in this encounter Plan of Treatment Upcoming Encounters Date Type Department Care Team (Late st Contact Info) Description 11/24/2023 8:05 AM EDT Office Visit Urogynecology [facility] [address] [place] [address] Diogo Cornelius MD [address] [place] [address] Nurse Benigno Veliz [facility] [address] [place] [address] 11/30/2023 10:30 AM EDT Office Visit Ophthalmology, [facility] [address] [place] [address] Mina Christiansen DO [address] [place] [address] 12/29/2023 2:30 PM EDT Office Visit Gynecology/Obstetrics [facility] [address] [facility] [place] [address] Ny Mccracken CRNP [address] [place] [address] 02/17/2024 2:00 PM EDT Office Visit Family Practice [facility] [address] [place] [address] Sussy Zhu PA-C [address] [facility] [place] [address] 03/16/2024 3:45 PM EDT Office Visit Dermatology [facility] [address] [place] [address] Qian Dorman MD [address] [place] [address] 07/05/2024 1:00 PM EST Office Visit Gynecology/Obstetrics Alix Veliz [address] [place] [address] Backer, MACIE Aldrich [address] [place] [address] Scheduled Referrals Name Type Priority Associated Diagnoses Order Schedule UROGYNECOLOGY CLINIC REFERRAL OP (FEMALE ONLY) Referral Within 30 days (routine) Recurrent UTI Problem with vaginal pessary, subsequent encounter Ordered: 11/17/2023 Health Maintenance Due Date Last Done Comments DXA Scan 04/30/2016 04/30/2014, 03/29, 04/18/2012, Additional history exists COVID-19 Vaccine ( season) 2023 04/04/2022, 10/01/2021, 04/07/2021, Additional history exists Depression Screening 05/18/2023 05/18/2022, 06/29/2017 (Discussed) DTaP,Tdap,and Td Vaccines (2 - Td or Tdap) 06/30/2023 06/30/2013, 06/30/2005, 06/30/2005 GFR 03/30/2024 03/30/2023, 08/27, 08/14/2022, Additional history exists Albumin/Creatinine Ratio 09/11/2024 09/11/2021 VITAMIN D LEVEL ONCE IN A LIFETIME-USE SMARTSET# [id number] Completed 03/15/2006 Pneumococcal Vaccine: 65+ Years Completed [...] this encounter Medical Devices Implanted Type Area Altitude Chamber Technician Device Identifier Shelf Expiration Date Model / Serial / Lot Lens 23.5 M160l - [id number] - [id number] Implanted:Qty: 1 on 10/03/2015 by Arnol Auguste MD at [facility] Left: Eye [employer] : SURGICAL 11/25/2016 [id number]-37.5 / [id number] / [id number] Lens Intraoc 23.0 - [id number] - [id number] Implanted:Qty: 1 on 06/04/2016 by Flakito Sorto MD at OR [facility] Right: Eye [employer] 11/25/2020 [id number] / [id number] / documented as of this encounter Visit Diagnoses Diagnosis HTN, goal below 140/90- Primary Unspecified essential hypertension Recurrent UTI Urinary tract infection, site not specified Problem with vaginal pessary, subsequent encounter Bronchospasm, exercise-induced Exercise induced bronchospasm documented in this encounter Advance Directives * [...] and were consensually agreed upon. Care Teams Assistant Federal [employer] Relationship Specialty Start Date End Date Seun Riddle DO [facility] [address] [place], [place] [address] PCP - General Family Medicine 12/25/16 documented as of this encounter"
--- OUTSIDE RECORDS SUMMARY | 2023-12-12 09:12 | External Medical Summary | Summary of Care ---
Author Name Unknown Organization [facility] Address [address] [facility] [address] Phone [phone] Care Team Providers Care Military Communications Specialist Name Role Phone BarakSeun javier Primary Care Provider [phone] Reason for Visit * Reason Comments Recurrent Urinary Infections * Evaluate & Treat - Unlimited Visits (Within 30 days (routine)) - Authorized Specialty Diagnoses / Procedures Referred By Nedra chiang Referred To Contact MOVER - Urogynecology / Gynecology Urology Diagnoses Recurrent UTI Problem with vaginal pessary, subsequent encounter Sussy Zhu PA-C [address] [place] [address] Referral ID Status Reason Start Date Expiration Date Visits Requested Visits Authorized [id number] Authorized Specialty Services Required 11/17/[phone] Encounter Details Date Type Department Care Team (Late st Contact Info) Description 11/24/2023 8:05 AM EDT Office Visit Urogynecologfeliciano Veliz [address] [place] [address] Diogo Cornelius MD [address] [place] [address] Nurse Benigno Veliz [address] [place] [address] Cystocele, midline*; Atrophic vaginitis; History of recurrent UTI (urinary tract infection) Allergies Active Allergy Reactions Criticality Noted Date Comments Sulfamethoxazole-Trimethoprim 2019 nausea Nitrofurantoin 2021 nausea Penicillins 03/23/2000 rash Trimethoprim High 04/01/2021 Other reaction(s): Nausea documented as of this encounter (statuses as of 11/24/2023) Medications Medication Sig Dispensed Refills Start Date [...] other night 136.607 g 3 11/24/2023 Active Hospital, Clinic, or Other Facility Administered [...] as of this encounter (statuses as of 11/24/2023) Active Problems Problem Noted Date Diagnosed Date Bronchospasm, exercise-induced 11/17/2023 Spinal enthesopathy, cervical region 07/14/2023 Bilateral nonexudative age-related macular degen eration 05/19/2023 Degenerative disc disease, cervical 09/09/2022 Hyperlipidemia 09/09/2022 History of 2019 novel coronavirus disease (COVID -19) 06/10/2022 Monoallelic mutation of LDLR gene 04/08/2022 Overview: 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 Increased risk for Familial hypercholesterolemia (FH). Please [...] as of this encounter (statuses as of 11/24/2023) Resolved Problems Problem Noted Date Diagnosed Date [...] as of this encounter (statuses as of 11/24/2023) Immunizations Name Administration Dates Next Due COVID-19 mRNA, LNP-s, No Pre serve, 2-Dose Series (BabyFirstTV) 10/01/2021,04/07/2021,09/14/2020,08/24 COVID-19, LNP-s, No Preserve , Yimi-sucrose, [...] Sign Reading Time Taken Comments Blood Pressure 140/70 11/24/2023 8:25 AM EDT Pulse - - Temperature - - Respiratory Rate - - Oxygen Saturation - - Inhaled Oxygen Concentration - - Weight 52.2 kg (115 lb) 11/24/2023 8:25 AM EDT Height 160 cm (5' 3") 11/24/2023 8:25 AM EDT Body Mass Index 20.37 11/24/2023 8:25 AM EDT documented in this encounter Progress Notes * Diogo Cornelius MD - 11/24/2023 8:33 AM EDT Rachel Garcia is a 82 year old female P 5 here for evaluation of pessary issues and recurrent UTI's. Referred by Sussy Zhu PA-C. Rachel Garcia was recently discharged from [facility] for complicated UTI causingconfusion. She reports that she had 3 UTI's since April. Her only symptom when she develops a UTI is lightheadedness. She doesn't experience dysuria. She denies having any kidney imaging. She has been using a ring pessary for a cystocele for several years. She uses a panty liner becauseof the discharge. She denies bleeding. She has the pessary cleaned by her aquatic biologist every 3 months. She doesn't use estrogen cream at home. Urine cultures 07/14/23: 10k to 100k Klebsiella 06/29/23: >100k Klebsiella 04/12/23: >100k Klebsiella 09/09/22: >100k Enterobacter 06/10/22: No growth Urinary: Leakage: very mild urge incontinence Has leakage occasionally, doesn't bother her Wears pads: liner for discharge She denies a sense of incomplete bladder emptying. Prior/current treatment include: none UTI: She states she has had three urinary tract infections in the past year Voiding detail: Daytime frequency: every 3-4 hours Urgency occasional Nocturia:twice Hesitancy no Straining no Hematuria no Postvoid dribbling no Postvoid urgency no Manual reduction no Prolapse: She admits a palpable bulge. Prior/ current treatments include pessary GI: Bowel habits: normal bowel movement She denies fecal incontinence. Prior/ current treatments include: none Gynecologic history: cystocele. Medical History: Patient Active Problem List Diagnosis HTN, goal below 140/90 No advance directive on file Osteoporosis Exudative macular degeneration (HCC) DYSLIPIDEMIA, GOAL TO BE DETERMINED History of tobacco abuse DJD (degenerative joint disease) of knee Primary osteoarthritis of right knee Hx of nonmelanoma skin cancer Hx of actinic keratosis Monoallelic mutation of LDLR gene History of 2018 novel coronavirus disease (COVID-19) Degenerative disc disease, cervical Hyperlipidemia Bilateral nonexudative age-related macular degeneration Spinal enthesopathy, cervical region (HCC) Bronchospasm, exercise-induced Past Medical History: Diagnosis Date Allergic rhinitis cat and dog Bilateral nonexudative age-related macular degeneration 05/19/2023 History of 2019 novel coronavirus disease (COVID-19) 06/10/2022 History of tobacco abuse 09/26/2013 20 pack year history HTN, goal below 140/90 Hypermetropia, right eye 10/31/2015 Lyme disease Mixed dyslipidemia Myopia of left eye 10/31/2015 Need for prophylactic hormone replacement therapy (postmenopausal) No advance directive on file 03/15/2006 no Nonexudative age-related macular degeneration, bilateral, early dry stage 01/16/2013 Other osteoporosis 03/15/2006 Regular astigmatism, bilateral 08/12/2015 Tobacco use disorder Patient sees Seun Riddle DO as her primary care provider. Surgical History: Past Surgical History: Procedure Laterality Date DEXA SCAN/BONE MINERAL AXIAL 01/2006 osteoporosis repeat on medication in 2007 EXERCISE ECHO 06/2004 normal, [place] Ramirez[place] [facility] [place] OF [place]; SINGLE LESION 04/2020 INJECTION OF EYE DRUG 04/10/2008 #1 Avastin OD, Dr. Christiansen INJECTION OF EYE DRUG 05/11/2008 #2 Avastin OD, Dr. Christiansen INJECTION OF EYE DRUG 06/08/2008 #3 Avastin OD, Dr. Christiansen INJECTION OF EYE DRUG Right 06/09/2018 # 4 Avastin OD, Dr. Christiansen INJECTION OF EYE DRUG Right 07/19/2018 # 5 Avastin OD, Dr. Christiansen INJECTION OF EYE DRUG Right 08/23/2018 #6 Avastin OD, Dr. Christinasen INJECTION OF EYE DRUG Right 10/04/2018 # 7 Avastin OD, Dr. Christiansen INJECTION OF EYE DRUG Right 11/24/2018 # 8 Avastin OD, Dr. Christiansen INJECTION OF EYE DRUG Right 01/19/2019 # 9 Avastin OD, Dr. Christiansen INJECTION OF EYE DRUG Right 03/16/2019 # 10 Avastin OD, Dr. Christiansen INJECTION OF EYE DRUG Right 04/27/2019 # 11 Avastin OD, Dr. Christiansen INJECTION OF EYE DRUG Right 06/14/2019 # 1 Eylea OD, INJECTION OF EYE DRUG Right 07/19/2019 # 2 Eylea OD, Dr. Christiansen INJECTION OF EYE DRUG Right 08/29/2019 # 3 Eylea OD, Dr. Christiansen INJECTION OF EYE DRUG Right 10/10/2019 # 4 Eylea OD, Dr. Christiansen INJECTION OF EYE DRUG Right 11/21/2019 # 5 Eylea OD, Dr. Christiansen INJECTION OF EYE DRUG Right 01/03/2020 # 6 Eylea OD, Dr. Christiansen INJECTION OF EYE DRUG Right 02/08/2020 # 7 Eylea OD, Dr. Christiansen INJECTION OF EYE DRUG Right 03/26/2020 # 8 Eylea OD, INJECTION OF EYE DRUG Right 04/30/2020 # 9 Eylea OD, Dr. Christiansen INJECTION OF EYE DRUG Right 06/05/2020 # 10 Eylea OD, Dr. Christiansen INJECTION OF EYE DRUG Right 07/17/2020 # 11 Eylea OD, INJECTION OF EYE DRUG Right 09/04/2020 # 12 Eylea OD, Dr. Christiansen INJECTION OF EYE DRUG Right 10/22/2020 # 13 Eylea OD, Dr. Christiansen INJECTION OF EYE DRUG Right 12/11/2020 # 14 Eylea OD, INJECTION OF EYE DRUG Right 02/18/2021 #15 Eylea OD, Dr. Christiansen INJECTION OF EYE DRUG Right 03/19/2021 # 16 Eylea OD, Dr. Christiansen INJECTION OF EYE DRUG Right 04/28/2021 # 17 Eylea OD, INJECTION OF EYE DRUG Right 06/09/2021 # 18 Eylea OD, Dr. Christiansen INJECTION OF EYE DRUG Right 07/07/2021 # 19 Eylea OD, Dr. Christiansen INJECTION OF EYE DRUG Right 08/07/2021 # 20 Eylea OD, Dr. Christiansen INJECTION OF EYE DRUG Right 09/10/2021 # 21 Eylea OD, Dr. Christiansen INJECTION OF EYE DRUG Right 10/15/2021 # 22 Eylea OD, Dr. Christiansen INJECTION OF EYE DRUG Right 12/24/2021 # 23 Eylea OD, Dr. Christiansen INJECTION OF EYE DRUG Right 01/28/2022 # 24 Eylea OD, Dr. Christiansen INJECTION OF EYE DRUG Right 03/10/2022 # 25 Eylea OD, Dr. Christiansen INJECTION OF EYE DRUG Right 04/15/2022 # 26 Eylea OD, Dr. Christiansen INJECTION OF EYE DRUG Right 06/02/2022 #27 EYLEA OD CHAIMNA INJECTION OF EYE DRUG Right 07/28/2022 #28 Eylea OD Chaimna INJECTION OF EYE DRUG Right 10/06/2022 #19 Eylea OD; DR Christiansen INJECTION OF EYE DRUG Right 12/15/2022 # 20 Eylea OD, Dr. Christiansen INJECTION OF EYE DRUG Right 01/21/2023 # 21 Eyela OD, Dr. Christiansen INJECTION OF EYE DRUG Right 02/23/2023 # 22 Eylea OD, Dr. Christiansen INJECTION OF EYE DRUG Right 03/29/2023 # 23 Eylea OD, Dr. Christiansen INJECTION OF EYE DRUG Right 04/30/2023 # 24 Eylea OD, Dr. Christiansen INJECTION OF EYE DRUG Right 06/09/2023 # 25 Eylea OD, Dr. Christiansen INJECTION OF EYE DRUG Right 07/08/2023 # 1 Vabysmo OD, Dr. Christiansen INJECTION OF EYE DRUG Right 08/19/2023 # 2 Vabysmo OD, Dr. Christiansen INJECTION OF EYE DRUG Right 09/23/2023 # 3 Vabysmo OD, Dr. Christiansen INJECTION OF EYE DRUG Right 10/21/2023 # 4 Vabysmo OD, Dr. Christiansen LASER TRABECULOPLASTY 07/06/2008 Focal/Grid laser OD, Dr. Christiansen MAMMOGRAM - 1 BREAST 11/08/2003 stable since , 6 month follow up recommended MAMMOGRAM - BILATERAL 04/18/2002 stable bilateral multinodular densities, benign findings, yearly mammos appropriate, birad code 2 MAMMOGRAM - BILATERAL 10/21/2007 birad 2 MAMMOGRAM SCREENING-BILATERAL 05/13/2004 benign findings, yearly mammograms appropriate, birad code 2 MAMMOGRAM SCREENING-BILATERAL 08/26/2005 benign findings, yearly mammograms appropriate, birad code 2 MISCELLANEOUS ORDER ([facility] ONLY) Right 06/09/18-06/09/19 AVASTIN OD CONSENT SIGNED, Dr. Christiansen MISCELLANEOUS ORDER ([facility] ONLY) ACT 112 FORM SIGNED; DR CHRISTIANSEN (08/23/2018) MISCELLANEOUS ORDER ([facility] ONLY) Right 06/14/2019-06/14/2020 AVASTIN OD CONSENT, DR. CHRISTIANSEN MISCELLANEOUS ORDER ([facility] ONLY) Right 06/14/2019-06/14/2020 Eylea OD consent signed, Dr.Cessna DAWN ORDER ([facility] ONLY) Right EYLEA OD CONSENT SIGNED, Dr. Christiansen (Exp 06-05-2021) OTHER (INFORMATION) Bilateral EYLEA CONSENT OU, Dr. Christiansen/[place] (Exp 07-17-2022) OTHER (INFORMATION) Bilateral EYLEA CONSENT SIGNED EXP 07/28/23; ANNE?SOLIS OTHER (INFORMATION) Bilateral VABYSMO OU CONSENT DR. CHRISTIANSEN/SOLIS EXP. 07/08/24 REMOVE CATARACT, INSERT LENS PROSTH Left 10/03/2015 EXTRACAPSULAR CATARACT REMOVAL WITH INTRAOCULAR LENS performed by Arnol Auguste MD at [facility] REMOVE CATARACT, INSERT LENS PROSTH Right 06/04/2016 right EXTRACAPSULAR CATARACT REMOVAL WITH INTRAOCULAR LENS performed by Flakito Sorto MD at OR [facility] REMOVE TONSILS & ADENOIDS, UNDER 12 Tonsillectomy/Adenoids,<12 Y/O VAGINAL DELIVERY ONLY times 4 OB History 4 Para 4 Term 4 AB Living 4 SAB IAB Ectopic Multiple Live Births Weight of largest baby: 8 Vaginal deliveries: 5 C/S: 0 Allergies: Review of patient's allergies indicates: Allergen Reactions Trimethoprim Other reaction(s): Nausea Bactrim [Sulfamethoxazole-Trimethoprim] nausea Macrobid [Nitrofurantoin] nausea Penicillins rash Active Medications: Current Outpatient Medications Medication Sig Dispense Refill ASPIRIN 81 MG PO TABS one tab by mouth daily 34 5 Cholecalciferol (VITAMIN D-3) 25 MCG (1000 UT) Capsule Take 1 Capsule by mouth in the morning. PreserVision AREDS 2+Multi Vit Oral Capsule Losartan Potassium 25 MG Oral Tablet (Cozaar) take 1 tablet by mouth every morning 90 Tablet 3 Naproxen Sodium 220 MG Oral Tablet as needed. Rosuvastatin Calcium 40 MG Oral Tablet (Crestor) Take 1 Tablet by mouth in the morning. 100 Tablet 3 Metoprolol Succinate ER 25 MG Oral Tablet Extended Release 24 Hour (Toprol XL) Take one tablet by mouth daily in the morning and one tablet daily in the evening. 180 Tablet 3 Ondansetron HCl 4 MG Oral Tablet Take 1 Tablet by mouth every 6 hours as needed for Nausea. 30 Tablet 5 Albuterol Sulfate HFA 108 (90 Base) MCG/ACT Inhalation Aerosol Solution INHALE 2 PUFFS BY MOUTH FOUR TIMES A DAY 18 g 3 Current Facility-Administered Medications Medication Dose Route Frequency Provider Last Rate Last Admin Aflibercept (Eylea) intraviteal prefilled syringe 2 mg 2 mg Intravitreal PRN Mina Christiansen,DO 2 mg at 06/09/23 1107 ROPivacaine (Naropin) inj 1.5 mg 1.5 mg Injection PRN Mina Chirstiansen, DO 1.5 mg at 10/21/23 1145 Faricimab-svoa (Vabysmo) intravitreal inj 6 mg 6 mg Intravitreal PRN Mina Christiansen, DO 6 mgat 10/21/23 1145 Social History: Social History Socioeconomic History Marital status: Number of children: 4 Occupational History 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 Tobacco Use Smoking status: Former Current packs/day: 0.00 Average packs/day: 0.5 packs/day for 40.0 years (20.0 ttl pk-yrs) Types: Cigarettes Start date: 07/06/1973 Quit date: 07/06/2013 Years since quittin.3 Smokeless tobacco: Never Tobacco comments: 1 pk per week Vaping Use Vaping status: Never Used Substance and Sexual Activity Alcohol use: Yes Comment: rare Drug use: No Sexual activity: Not Currently Partners: Male Other Topics Concern Service No Blood Transfusions No Caffeine Concern No Occupational Exposure No Hobby Hazards No Sleep Concern No Stress Concern No Weight Concern No Special Diet No Exercise No Seat Belt Yes Self-Exams No Family History: Family History Adopted: Yes Problem Relation Name Age of Onset Stroke Son Heart Disorder Daughter hypercholesteremia Heart Disorder Son hypercholesteremia Heart Disorder Son hypercholesteremia No Past Hx Son Other (Other) Son denies any family history of skin diseases or skin cancer. CONSTITUTIONAL ROS: No change in weight, No weakness and No fatigue NECK ROS: No lumps or masses, PULMONARY ROS: No recent change in breathing CARDIOVASCULAR ROS: No chest pain, No shortness of breath and No dyspnea on exertion BREAST ROS: denies GASTROINTESTINAL ROS: No abdominal pain,as per HPI GENITO-URINARY FEMALE ROS: As per HPI MSK/EXTREMITIES ROS: degenerative joint disease, disc disease SKIN/INTEGUMENTARY ROS: No rash and No itching NEUROLOGICAL ROS: Normal balance No weakness PSYCHIATRIC ROS: no depression and no anxiety Applications Programmer Analyst Documentation: Provider requested compressor station operator Name of Applications Programmer Analyst: Ana Rosa Gaona Blood pressure 140/70, height 1.6 m (5' 3"), weight 52.2 kg (115 lb). Blood pressure %karolyn are not available for patients who are 18 years or older. Body mass index is 20.37 kg/m. EXAM: Well developed well nourished female in no apparent distress. Alert oriented x3 HEENT: NC AT HEART: Normal peripheral pulse, edema neg THYROID: no obvious neck mass LUNG: No increased respiratory effort ABDOMEN: Soft, NT, ND, no masses PELVIC EXAM: Ext. Gen: Normal external female genitalia, no vulvar lesions. Clitoris, labia, minor vestibular glands and urethral meatus appear normal. Urethra and bladder palpated non-tender with no masses and no expressible exudate. Vagina atrophic. Left later wall abrasion/irritation, cystocele Cervix: nl BIMANUAL EXAM: no cervical motion tenderness, the uterus is smooth, mobile, non tender and of normal size. No adnexal masses or tenderness elicited. PATHOLOGIST ASSISTANT: neg Levator ani muscle strength 3. No tenderness elicited on palpation Rectovaginal exam: perianal area normal, anus normal, digital rectal exam deferred The following data points/ labs were reviewed: Results for orders placed or performed in visit on 10/26/23 URINALYSIS, POINT OF CARE (ENTER/EDIT) Result Value Ref Range Color, Urine Yellow Yellow or Light Yellow Clarity, Urine Clear Clear Glucose, Urine Negative Negative mg/dL Bilirubin, Urine Negative Negative Ketone, Urine Negative Negative mg/dL Specific [place], Urine 1.005 1.003 - 1.030 Blood, Urine Moderate Negative pH, Urine 6.0 5.0 - 7.5 units Protein, Urine Negative Negative mg/dL Urobilinogen, Urine 0.2 0.2 - 1.0 mg/dL Nitrite, Urine Negative Negative Esterase, Urine Large Negative PVR: 66 ml via bladder scan Records/ Imaging/ Results reviewed include: [place] discharge summary Impression: This is a 82 year old with: Cystocele, midline (Primary) Atrophic vaginitis History of recurrent UTI (urinary tract infection) For the pessary and abrasion/irritation on the left lateral wall of the vagina, I recommended a smaller pessary (a #3 ring pessary with support was inserted), topical estrogen (0.5 gm every other night), and more frequent pessary cleaning. For the recurrent UTI's, will get a renal ultrasound. Recommended topical estrogen cream to reduce recurrent UTI;s. Good oral hydration. All questions answered. Follow up in 6 weeks. Diogo Cornelius MD 11/24/2023 8:33 AM I spent a total of 45 minutes on the date of service in preparation, delivery, and documentation ofthe care provided to Rachel Garcia excluding any time spent in the performance of separately billed services. documented in this encounter Nursing Notes * Ana Rosa Gaona MED ASSIST - 11/24/2023 8:25 AM EDT Patient presents today for recurrent uti; referral Sussy Zhu PA-C PVR - 66 ISAIAH - none Frequency - every 4 hours Nocturia - 2x Urgency - yes Urge incontinence - yes small amount Managed w/liners. No symptoms today of UTI. documented in this encounter Plan of Treatment Upcoming Encounters Date Type Department Care Team (Late st Contact Info) Description 11/30/2023 10:30 AM EDT Office Visit Ophthalmology, [facility] [address] [place] [id number] Mina Christiansen DO [address] [place] [address] 12/02/2023 1:30 PM EDT Imaging Radiology [facility] [address] [place] [address] 12/29/2023 2:30 PM EDT Office Visit Gynecology/Obstetrics [facility] [address] [address] Ny Mccracken CRNP [address] [place] [address] 02/17/2024 2:00 PM EDT Office Visit Family Practice [facility] [address] [facility] [place] [address] Sussy Zhu PA-C [address] [facility] [place] [address] 03/16/2024 3:45 PM EDT Office Visit Dermatology [facility] [address] [facility] [place] [address] Qian Dorman MD [address] [facility] [place] [address] 07/05/2024 1:00 PM EST Office Visit Gynecology/[facility]stetrics [facility] [place] [address] Susan Wade CRNP [address] [facility] [place] [address] Scheduled Orders Name Type Priority Associated Diagnoses Orde r Schedule US RENAL Medical Imaging Routine Cystocele, midline Atrophic vaginitis History of recurrent UTI (urinary tract infection) Expected: 11/24/2023, Expires: 02/24/2024 Health Maintenance Due Date Last Done Comments [...] D LEVEL ONCE IN A LIFETIME-USE SMARTSET# [id number] Completed 03/15/2006 Pneumococcal Vaccine: 65+ Years Completed [...] this encounter Medical Devices Implanted Type Area Mash Tub Cooker Operator Device Identifier Shelf Expiration Date Model / Serial / Lot Lens 23.5 [id number] - [id number] - [id number] Implanted:Qty: 1 on 10/03/2015 by Arnol Auguste MD at [facility] Left: Eye [employer] : SURGICAL 11/25/2016 [id number] / [id number] / [id number] Lens Intraoc 23.0 - [id number] - [id number] Implanted:Qty: 1 on 06/04/2016 by Flakito Sorto MD at OR [facility] Right: Eye [employer] 11/25/2020 [id number] / [id number] / documented as of this encounter Visit Diagnoses Diagnosis Cystocele, midline- Primary Atrophic vaginitis Postmenopausal atrophic vaginitis History of recurrent UTI (urinary tract infection) Personal history of urinary (tract) infection documented in this encounter Advance Directives * [...] and were consensually agreed upon. Care Teams Military Communications Specialist Relationship Specialty Start Date End Date Seun Riddle DO [address] [place] [address] PCP - General Family Medicine 12/25/16 documented as of this encounter
--- OUTSIDE RECORDS SUMMARY | 2023-12-12 09:12 | External Medical Summary | Summary of Care ---
Author Name Unknown Organization [facility] Address [address] [facility] [place] [address] Phone [phone] Care Team Providers Care Traffic Officer Name Role Phone BarakSeun javier DO Primary Care Provider Reason for Visit * Reason Onset Date Comments Med Request 11/26/2023 Encounter Details Date Type Department Care Team (Late st Contact Info) Description 11/26/2023 Telephone Cardiology, [facility] [address] [place] [address] Aman Bains MD [address] [place] [address] Med Request Allergies Active Allergy Reactions Criticality Noted Date Comments Sulfamethoxazole-Trimethoprim 2019 nausea Nitrofurantoin 2021 nausea Penicillins 03/23/2000 rash Trimethoprim High 04/01/2021 Other reaction(s): Nausea documented as of this encounter (statuses as of 11/26/2023) Medications Medication Sig Dispensed Refills Start Date [...] as of this encounter (statuses as of 11/26/2023) Active Problems Problem Noted Date Diagnosed Date Bronchospasm, exercise-induced 11/17/2023 Spinal enthesopathy, cervical region 07/14/2023 Bilateral nonexudative age-related macular degen eration 05/19/2023 Degenerative disc disease, cervical 09/09/2022 Hyperlipidemia 09/09/2022 History of 2019 novel coronavirus disease (COVID -19) 06/10/2022 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 Increased risk for Familial hypercholesterolemia (FH). Please [...] as of this encounter (statuses as of 11/26/2023) Resolved Problems Problem Noted Date Diagnosed Date [...] as of this encounter (statuses as of 11/26/2023) Immunizations Name Administration Dates Next Due COVID-19 mRNA, LNP-s, No Pre serve, 2-Dose Series (Damballa) 10/01/2021,04/07/2021,09/14/2020,08/24 COVID-19, LNP-s, No Preserve , Yimi-sucrose, [...] encounter Miscellaneous Notes * Telephone Encounter - Amie Pat PHARM Tech - 11/26/2023 9:50 AM EDT Pt called and was transferred to the Specialty Line Thank you, Amie Pat CPhT [facility] Orth[facility]ist II [facility] (formerly [facility]) 11/26/2023,9:51 AM documented in this encounter Plan of Treatment Upcoming Encounters Date Type Department Care Team (Late st Contact Info) Description 11/30/2023 10:30 AM EDT Office Visit Ophthalmology, [facility] [address] [address] Mina Christiansen DO [address] [place] [address] 12/02/2023 1:30 PM EDT Imaging Radiology [facility] [address] [place] [address] 12/29/2023 2:30 PM EDT Office Visit Gynecology/Obstetrics Alix Veliz [address] [place] [address] Ny Mccracken CRNP [address] [place] [address] 01/10/2024 10:45 AM EDT Office Visit Urogynecology Alix Veliz [address] [place] [address] Diogo Cornelius MD [address] [place] [address] Nurse Benigno Veliz Mary Ann [address] [place] [address] 02/17/2024 2:00 PM EDT Office Visit Family Practice [facility] [address] [facility] [place] [address] Sussy Zhu PA-C [address] [facility] [place] [address] 03/16/2024 3:45 PM EDT Office Visit Dermatology [facility] [address] [facility] [place] [address] Qian Dorman MD [address] [facility] [place] [address] 07/05/2024 1:00 PM EST Office Visit Gynecology/Obstetrics Alix Veliz [address] [place] [address] Susan Wade CRNP [address] [place] [address] Health Maintenance Due Date Last Done Comments [...] D LEVEL ONCE IN A LIFETIME-USE SMARTSET# 62024 Completed 03/15/2006 Pneumococcal Vaccine: 65+ Years Completed [...] this encounter Medical Devices Implanted Type Area Recreation Instructor Device Identifier Shelf Expiration Date Model / Serial / Lot Lens 23.5 M160l - [id number] - [id number] Implanted:Qty: 1 on 10/03/2015 by Arnol Auguste MD at OR [facility] Left: Eye [employer] : SURGICAL 11/25/2016 [id number] / [id number] / [id number] Lens Intraoc 23.0 - [id number] - [id number] Implanted:Qty: 1 on 06/04/2016 by Flakito Sorto MD at OR [facility] Right: Eye [employer]OM[employer] 11/25/2020 [id number] / [id number] / documented as of this encounter Advance Directives * Full Code (Latest Code Status on File) Date Activated Date Inactivated Comments 06/04/2016 10:57 AM 06/04/2016 5:42 PM This order reflects the patients wishes and were consensually agreed upon. * Full Code Date Activated Date Inactivated Comments 10/03/2015 6:23 AM 10/03/2015 12:29 PM This order re flects the patients wishes and were consensually agreed upon. Care Teams Traffic Officer Relationship Specialty Start Date End Date Seun Riddle DO [address] [place] [address] PCP - General Family Medicine 12/25/16 documented as of this encounter
--- OUTSIDE RECORDS SUMMARY | 2023-12-12 09:12 | External Medical Summary | Summary of Care ---
Author Name Unknown Organization [facility] Address [address] [facility] [place] [address] Phone [phone] Care Team Providers Care Leguillon Debeader Name Role Phone BarakSeun javier DO Primary Care Provider Reason for Visit * Reason Onset Date Comments Medication Refill 11/26/2023 Encounter Details Date Type Department Care Team (Late st Contact Info) Description 11/26/2023 Refill Cardiology, [facility] [address] [place] [address] Marilu More MD [address] [place] [address] HTN, goal below 140/90 Allergies Active Allergy Reactions Criticality Noted Date [...] Oral Tablet (Cozaar)Indicati ons:HTN, goal below 140/90 Take 1 Tablet by mouth in the morning. In the morning.. 90 Tablet 3 11/26/2023 Active Losartan Potassium 25 MG Oral Tablet (Cozaar)Indicati ons:HTN, goal below 140/90 take 1 tablet by mouth every morning 90 Tablet 3 11/25/2022 11/26/2023 Discontinued (Refill) Hospital, Clinic, or Other Facility Administered Medication [...] gene variant (c.1783 C>T, p.(R595W)) detected via [employer]. Increased risk for Familial hypercholesterolemia (FH). Please [...] mRNA, LNP-s, No Pre serve, 2-Dose Series (XIHA) 10/01/2021,04/07/2021,09/14/2020,08/24 COVID-19, LNP-s, No Preserve , Yimi-sucrose, [...] encounter Miscellaneous Notes * Telephone Encounter - Marilu More MD - 11/26/2023 1:38 PM EDTSigned Prescriptions: Disp Refills Losartan Potassium 25 MG Oral Tablet (Coza*90 Tab*3 Sig: Take 1 Tablet by mouth in the morning. In the morning.. Authorizing Provider: MARILU MORE * Telephone Encounter - Angela Ibarra CMA - 11/26/2023 11:48 AM EDTPending Prescriptions: Disp Refills Losartan Potassium 25 MG Oral Tablet (Coza*90 Tab*3 Sig: Take 1 Tablet by mouth in the morning. In the morning.. * Telephone Encounter - Maddy Martínez CPhT - 11/26/2023 9:53 AM EDT Patient is up to date for office visits. Pending Prescriptions: Disp Refills Losartan Potassium 25 MG Oral Tablet (Coz*90 Tab*3 Sig: Take 1 Tablet by mouth in the morning. In the morning.. Last Visit: 03/24/2023 (in office), Visit date not found (telemedicine) Next Visit: Visit date not found If no future appointments scheduled, and last appointment is greater than a year ago, please schedule patient for a follow-up appointment Last date the medication was ordered: 11/25/2022 Pharmacy: [facility] [id number] [address] THIERNO MOELLER Is this request for a controlled substance?No it is not controlled. Urine Drug Screen:No results found for this or any previous visit. Patient Phone Numbers Labs: Lab Results Component Value Date/Time CREAT 0.7 03/30/2023 09:56 AM CREAT 0.6 03/15/2020 10:18 AM POTASSIUM 4.2 03/30/2023 09:56 AM POTASSIUM 4.1 03/15/2020 10:18 AM TSH 0.68 09/17/2022 12:06 PM TSH 1.11 06/14/2018 12:11 PM LDLCALC 92 03/30/2023 09:56 AM LDLCALC 88 03/15/2020 10:18 AM LDLCALC 151. (H) 07/15/1996 10:25 AM LDLDIRECT NOT APPLICABLE 03/15/2020 10:18 AM ALT 18 03/30/2023 09:56 AM ALT 12 06/14/2018 12:11 PM ALT 14 07/15/1996 10:25 AM documented in this encounter Plan of Treatment Upcoming Encounters Date Type Department Care Team (Late st Contact Info) Description 11/30/2023 10:30 AM EDT [facility] [address] [place] [address] Mina Christiansen DO [address] [place] [address] 12/02/2023 1:30 PM EDT Imaging Radiology [facility] [address] [place] [address] 12/29/2023 2:30 PM EDT Office Visit Gynecology/Obstetrics [facility] [address] [place] [address] Ny Mccracken CRNP [address] [place] [address] 01/10/2024 10:45 AM EDT [facility] [address] [place] [address] Diogo Cornelius MD [address] [place] [address] Nurse Benigno Veliz Mary Ann [address] [place] [address] 02/17/2024 2:00 PM EDT Office Visit Family Practice [facility] [place] [address] [place] [address] Sussy Zhu PA-C [address] [place] [address] 03/16/2024 3:45 PM EDT Office Visit Dermatology [facility] [place] [address] [place] [address] Qian Dorman MD [address] [place] [address] 07/05/2024 1:00 PM EST Office Visit Gynecology/Obstetrics Alix Veliz [address] [place] [address] Backer, MACIE Aldrich [address] [place] [address] Health Maintenance Due Date Last Done Comments [...] D LEVEL ONCE IN A LIFETIME-USE SMARTSET# 32451 Completed 03/15/2006 Pneumococcal Vaccine: 65+ Years Completed [...] this encounter Medical Devices Implanted Type Area Finance Business Partner Device Identifier Shelf Expiration Date Model / Serial / Lot Lens 23.5 M160l - [id number] - [id number] Implanted:Qty: 1 on 10/03/2015 by Arnol Auguste MD at OR [facility] Left: Eye [employer]OM[employer] : SURGICAL 11/25/2016 [id number] / [id number] / [id number] Lens Intraoc 23.0 - [id number] - [id number] Implanted:Qty: 1 on 06/04/2016 by Flakito Sorto MD at OR [facility] Right: Eye [employer]CH [employer] LOMB 11/25/2020 [id number] / [id number] / documented as of this encounter Visit Diagnoses Diagnosis HTN, goal below 140/90 Unspecified essential hypertension documented in this encounter Advance Directives * [...] and were consensually agreed upon. Care Teams Leguillon Debeader Relationship Specialty Start Date End Date Seun Riddle DO [address] [place] [address] PCP - General Family Medicine 12/25/16 documented as of this encounter
[2023-12-12] MEDS: OPTIRAY 320 125ml IV ONE (09:30)
--- NOTE | 2023-12-12 09:35 | CT Scan Report ---
CT head/brain wo con CLINICAL HISTORY: 82 years-old Female with Neuro deficit, acute, stroke suspected. Acute strokelike symptoms TECHNIQUE: Multiple axial CT images of the head were obtained without contrast. A dose lowering tech nique was utilized adhering to the principles of ALARA. CT DOSE: 683.59 mGy.cm COMPARISON: Brain MRI 11/10/2023 FINDINGS: No acute intracranial hemorrhage, midline shift, intracranial mass, hydrocephalus, territorial ischem ia or abnormal extra-axial collection. Involutional changes with chronic microvascular ischemic disea se. Cerebrovascular calcifications. Low-lying cerebellar tonsils. The calvarium is intact. Prior bilateral lens repair. The paranasal sinuses, mastoid air cells, and m iddle ear cavities are clear. IMPRESSION: No acute intracranial abnormality identified. ACT 112: Negative or not required by law. The above report was generated using voice recognition software. It may contain grammatical, syntax o r spelling errors. Electronically signed by: Mathew Bustos M.D. 12/12/2023 9:32 AM
--- NOTE | 2023-12-12 09:41 | Emergency Department Note ---
Impression & Plan Encephalopathy, Acute UTI ED Provider Note CHIEF COMPLAINT: Stroke symptoms HISTORY OF PRESENT ILLNESS: This 82-year-old female patient past medical history of hyperlipidemia, TIA, encephalopathy, recurrent UTI presents to the emergency department with complaints of stroke symptoms. History is obtained largely from her son at the bedside who states she received a call at 7:25 a.m. this morning from his mother who stated she was "just not right." Patient apparently was attempting to make salsa this morning, which is something she does quite often. She was not able to remember the recipe. She was not able to remember her son's phone number, but could remember where she had the phone number posted in the kitchen. She was able to dial and her speech was clear. Son states he went to her house and did a mini stroke evaluation. She had symmetric strength, facial movements and speech. She was acting peculiar however as she was still in her bed clothes and trying to cook. Apparently this is largely out of character for the patient as she "does not begin her day ever in bed clothes." Son states she was in her usual state of health last evening before bed. REVIEW OF SYSTEMS: A review of systems was performed with positives and pertinent negatives listed in the history of present illness. 10 systems were reviewed and are otherwise negative. ALLERGIES: see below MEDICATIONS: see below PMH: see below SOCIAL HISTORY: see below DDx: CVA, TIA, encephalopathy, UTI, medication effect, toxicologic issue, intracranial hemorrhage among others. PHYSICAL EXAM: Vital signs reviewed. General: Well-appearing 82 yo female, in no significant distress. HEENT: No scleral icterus, PERRLA, neck supple. MMM Cardiovascular: Regular rate and rhythm, no extra sounds. Pulmonary: Clear to auscultation bilaterally, normal work of breathing. Abdomen: Soft, nontender, nondistended, positive bowel sounds. Musculoskeletal: Atraumatic, no peripheral edema. Neurologic: Patient awake alert and oriented x 3, speech is clear. CN II-XII Are grossly intact. Moves extremities equally. Intact finger to nose. Skin: Warm, dry, no rash EMERGENCY DEPARTMENT COURSE/MDM: This patient was evaluated appeared to be in distress. A stroke or had been called by the nurses and triage. Patient was taken right to CT prior to my evaluation. The telestroke physician had been contacted and evaluated the patient at the bedside. Patient symptoms of largely resolved and she seem to be having no memory difficulties. Laboratory work is fairly reassuring, WBC is within normal limits. UA is indicative of infection, this may have all been insurance verification representative of secondary to UTI. Patient was hydrated with normal solution and given IV cefepime. Was discussed with the hospital service who evaluate the patient for admission for the management. MONITORING: An order for cardiac monitoring was placed and the patient is noted to be in a sinus rhythm at 95 beats per minute. RADIOLOGY: Head CT to my interpretation reveals no evidence of acute intracranial pathology, otherwise refer to radiology over read. CTA head and neck: IMPRESSION: 1. Atherosclerotic plaque of the left greater than right carotid bulbs. There is 60% stenosis at the origin of the left ICA and less than 50% stenosis on the right. 2. Otherwise unremarkable CTA of the head and neck. 3. Emphysema with biapical pleural parenchymal scarring redemonstrated. EKG: to my interpretation reveals a sinus rhythm with marked sinus arrhythmia at 94 bpm, normal ST segments, QTc 442. no PVC, no PAC. DISPOSITION: admission Past Med/Surg History Problem List (Updated 12/12/23 @ 19:15 by Martha Chavez MD) Acute UTI (Acute) Encephalopathy (Acute) Brain TIA (Acute) COVID-19 (Acute) Hyperlipidemia (Chronic) Asthma (Chronic) Degenerative disc disease, cervical (Acute) Weakness (Acute) Surgical History No pertinent past surgical history Family History Mother Myocardial infarction Son Stroke Social History Smoking Status: Former smoker Tobacco Type: Cigarettes Second Hand Exposure: No; Do You Dip or Chew Tobacco: No; Hx Alcohol Use: Yes Hx Substance Use: No Preferred Language: Telugu Communication Ability: Effective 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 Beliefs That Will Affect Care: None marital status: Current Living Situation: Alone Current Living Situation Comment: [facility] current occupational status: retired Feels Safe at Home: Yes Safety Concerns: Feels Safe At This Time Assistive Devices: Walker Allergies Allergies Allergy/AdvReac Type Severity Reaction Status Date / Time sulfamethoxazole Allergy Severe Nausea Verified 12/12/23 10:59 [From Bactrim] trimethoprim [From Bactrim] Allergy Severe Nausea Verified 12/12/23 10:59 Penicillins Allergy Intermediate Rash Verified 12/12/23 10:59 nitrofurantoin AdvReac Mild Nausea Verified 12/12/23 10:59 [From Macrobid] Home Meds Home Medications Medication Instructions Recorded Confirmed albuterol sulfate 90 mcg/actuation 2 puff inhalation QID PRN 06/27/18 12/12/23 aerosol inhaler (ProAir HFA) Shortness Of Breath vitamins A,C,[id number]-[id number] 2,148 1 tab PO BID 06/27/18 12/12/23 mcg-113 mg-45 mg-17.4 mg tablet (PreserVision AREDS) cholecalciferol (vitamin D3) 25 25 mcg PO QAM 04/01/21 12/12/23 mcg (1,000 unit) capsule (Vitamin D3) faricimab-svoa 6 mg/0.05 mL 6 mg intravitreal UD 10/03/23 12/12/23 intravitreal solution (Vabysmo) ondansetron HCl 4 mg tablet 4 mg PO Q6H PRN NAUSEA/VOMITING 10/03/23 12/12/23 d-mannose 500 mg capsule 500 mg PO BID 12/12/23 12/12/23 losartan 25 mg tablet 25 mg PO QAM 12/12/23 12/12/23 rosuvastatin 40 mg tablet 40 mg PO QAM 12/12/23 12/12/23 Previous Rx's Medication Instructions Recorded aspirin 81 mg tablet,delayed 81 mg PO HS #30 tabs 11/13/23 release metoprolol succinate 25 mg 25 mg PO BID #60 tabs 11/13/23 tablet,extended release 24 hr Results & Data (ED) Vital Signs Vital Signs - 24 hr 12/12/23 09:15 12/12/23 09:40 12/12/23 09:41 Temperature 36.7 C 36.5 C Temperature Source Temporal Artery Scan Oral Pulse Rate 88 96 H Pulse Rate [Left Apical] 91 H Pulse Rate from SpO2 Sensor Pulse Rhythm [Left Apical] Regular Respiratory Rate 20 16 Respiratory Effort / Characteristics Non-Labored Spontaneous Respiratory Depth Normal Normal Blood Pressure 177/89 H Blood Pressure [Right Arm] 155/78 H Blood Pressure Mean 118 Blood Pressure Mean [Right Arm] 103 Pulse Oximetry 95 95 Oxygen Delivery Method Room Air Room Air Sepsis Recent Fever Within 48 Hours No Sepsis New/Unexplained Change in Mental Status N/A Sepsis Action Taken by Nursing No Action Required 12/12/23 10:00 12/12/23 10:27 12/12/23 12:00 Temperature Temperature Source Pulse Rate 92 H 92 H 87 Pulse Rate [Left Apical] Pulse Rate from SpO2 Sensor 92 H 87 Pulse Rhythm [Left Apical] Respiratory Rate 16 21 16 Respiratory Effort / Characteristics Respiratory Depth Blood Pressure 168/83 H 177/105 H 166/94 H Blood Pressure [Right Arm] Blood Pressure Mean 112 129 118 Blood Pressure Mean [Right Arm] Pulse Oximetry 95 97 96 Oxygen Delivery Method Sepsis Recent Fever Within 48 Hours Sepsis New/Unexplained Change in Mental Status Sepsis Action Taken by Care Home Medications Current Medication List: was personally reviewed by me Laboratory Data Attestation: I reviewed the patient's lab results. 12/12/23 09:33 12/12/23 09:33 Lab Results 12/12/23 12/12/23 12/12/23 Range/Units 09:33 09:42 09:43 WBC 8.56 (4.8-10.8) K/ul RBC 4.29 (4.20-5.40) M/uL Hgb 13.6 (12.0-16.0) g/dl POC Hgb 11.6 L (12.0-16.0) g/dl Hct 40.7 (37.0-47.0) % POC Hct 34 L (37-47) % MCV 94.9 (80.0-100.0) fL MCH 31.7 (25.0-34.0) pg MCHC 33.4 (32.0-36.0) g/dL RDW Std Deviation 46.6 H (36.4-46.3) fL RDW Coeff of Sherrill 13.4 (11.5-14.5) % Plt Count 157 (130-400) K/uL MPV 9.4 (9.4-12.4) fL PT 11.4 (9.0-12.0) Seconds INR 1.1 (0.9-1.1) APTT 24 (21-31) Seconds PTT Ratio 0.9 POC Sodium 135 (135-144) mmol/L Sodium 137 (136-145) mmol/L POC Potassium 3.9 (3.3-5.0) mmol/L Potassium 3.9 (3.5-5.1) mmol/L POC Chloride 97 L (101-112) mmol/L Chloride 104 (98-107) mmol/L Carbon Dioxide 27 (21-32) mmol/L POC Total CO2 27 (24-31) mmol/L Anion Gap 6 (3-11) POC Anion Gap 16.0 (16-25) mmol/L POC BUN 17 (7-18) mg/dl BUN 19 (6-23) mg/dl Creatinine 0.62 (0.6-1.2) mg/dl POC Creatinine 0.5 L (0.6-1.3) mg/dl Est Cr Clr Drug Dosing 56.2 ml/min Est GFR ( Amer) 96.6 ml/min Est GFR (Non-Af Amer) 83.4 ml/min BUN/Creatinine Ratio 30.6 H (10-20) Glucose 131 H (70-99(Fasting)) mg/dl POC Glucose 125 H (70-99) mg/dl POC Glucose (other) 118 H (70-99) mg/dl Lactate (0.4-2.0) mmol/L Calcium 9.7 (8.6-10.3) mg/dl POC Ioniz Calcium Mike 1.18 (1.12-1.32) mmol/l Magnesium 2.0 (1.7-2.4) mg/dl Total Bilirubin 0.7 (0.2-1.0) mg/dl AST 27 (13-39) U/L ALT 15 (7-52) U/L Alkaline Phosphatase 60 (34-104) U/L Total Protein 7.4 (6.0-8.3) gm/dl Albumin 3.9 (3.4-5.0) gm/dl Globulin 3.5 (2.5-4.0) gm/dl Albumin/Globulin Ratio 1.1 (0.9-2) Urine Color Urine Appearance (Clear) Urine pH (4.5-7.5) Ur Specific [place] (1.000-1.030) Urine Protein (Negative) Urine Glucose (UA) (Negative) Urine Ketones (Negative) Urine Blood (Negative) Urine Nitrite (Negative) Urine Bilirubin (Negative) Urine Urobilinogen (Negative) Ur Leukocyte Esterase (Negative) Urine WBC (Auto) (0-5) /hpf Urine RBC (Auto) (0-2) /hpf U Hyaline Cast (Auto) (0-2) /lpf U Epithel Cells (Auto) (0-2) /hpf Urine Bacteria (Auto) (None Seen) 12/12/23 12/12/23 Range/Units 09:52 10:55 WBC (4.8-10.8) K/ul RBC (4.20-5.40) M/uL Hgb (12.0-16.0) g/dl POC Hgb (12.0-16.0) g/dl Hct (37.0-47.0) % POC Hct (37-47) % MCV (80.0-100.0) fL MCH (25.0-34.0) pg MCHC (32.0-36.0) g/dL RDW Std Deviation (36.4-46.3) fL RDW Coeff of Sherrill (11.5-14.5) % Plt Count (130-400) K/uL MPV (9.4-12.4) fL PT (9.0-12.0) Seconds INR (0.9-1.1) APTT (21-31) Seconds PTT Ratio POC Sodium (135-144) mmol/L Sodium (136-145) mmol/L POC Potassium (3.3-5.0) mmol/L Potassium (3.5-5.1) mmol/L POC Chloride (101-112) mmol/L Chloride (98-107) mmol/L Carbon Dioxide (21-32) mmol/L POC Total CO2 (24-31) mmol/L Anion Gap (3-11) POC Anion Gap (16-25) mmol/L POC BUN (7-18) mg/dl BUN (6-23) mg/dl Creatinine (0.6-1.2) mg/dl POC Creatinine (0.6-1.3) mg/dl Est Cr Clr Drug Dosing ml/min Est GFR ( Amer) ml/min Est GFR (Non-Af Amer) ml/min BUN/Creatinine Ratio (10-20) Glucose (70-99(Fasting)) mg/dl POC Glucose (70-99) mg/dl POC Glucose (other) (70-99) mg/dl Lactate 1.1 (0.4-2.0) mmol/L Calcium (8.6-10.3) mg/dl POC Ioniz Calcium Mike (1.12-1.32) mmol/l Magnesium (1.7-2.4) mg/dl Total Bilirubin (0.2-1.0) mg/dl AST (13-39) U/L ALT (7-52) U/L Alkaline Phosphatase (34-104) U/L Total Protein (6.0-8.3) gm/dl Albumin (3.4-5.0) gm/dl Globulin (2.5-4.0) gm/dl Albumin/Globulin Ratio (0.9-2) Urine Color Yellow Urine Appearance Turbid A (Clear) Urine pH 6.5 (4.5-7.5) Ur Specific [place] 1.044 H (1.000-1.030) Urine Protein Trace H (Negative) Urine Glucose (UA) Negative (Negative) Urine Ketones Negative (Negative) Urine Blood 2+ H (Negative) Urine Nitrite Positive A (Negative) Urine Bilirubin Negative (Negative) Urine Urobilinogen Negative (Negative) Ur Leukocyte Esterase 3+ H (Negative) Urine WBC (Auto) >50 H (0-5) /hpf Urine RBC (Auto) 3-5 H (0-2) /hpf U Hyaline Cast (Auto) 0-2 (0-2) /lpf U Epithel Cells (Auto) 11-20 H (0-2) /hpf Urine Bacteria (Auto) 4+ H (None Seen) Administered Medications Sodium Chloride (Nss) 1,000 mls @ 60 mls/hr IV .[id number] CLAUDETTE Stop: 12/13/23 05:09 Last Admin: 12/12/23 13:35 Dose: 60 mls/hr Documented By: HANNAH Lactobacillus Acidophilus (Advanced Probiotic 625 Mg Capsule) 1,250 mg PO DAILY CLAUDETTE Stop: 01/11/24 12:29 Last Admin: 12/12/23 13:31 Dose: 1,250 mg Documented By: HANNAH Discontinued Medications Sodium Chloride (Nss) 1,000 mls @ 999 mls/hr IV .[id number] ONE Stop: 12/12/23 11:50 Last Infusion: 12/12/23 12:01 Dose: Infused Documented By: Admin: 12/12/23 11:00 Dose: 999 mls/hr Documented By: JACY Cefepime HCl (Maxipime) 2,000 mg in 20 mls @ 5 mls/min IV NOW STA Stop: 12/12/23 10:55 Last Admin: 12/12/23 11:03 Dose: 5 mls/min Documented By: JACY Ioversol (Optiray 320 125ml) 120 ml IV ONCE ONE Stop: 12/12/23 09:31 Last Admin: 12/12/23 09:30 Dose: 120 ml Documented By: KETAN Imaging Data Radiologist's Impression: Chest X-Ray 12/12/23 09:20 XR chest 1V portable HISTORY: 82 years-old Female stroke alert COMPARISON: Chest CT 11/11/2023 TECHNIQUE: AP view of the chest FINDINGS: Cardiomediastinal and hilar silhouettes are within normal limits. Emphysema with chronic fibrotic changes. No pneumothorax or pleural effusion. Bones appear grossly intact. IMPRESSION: Emphysema and fibrosis without acute process of the chest. ACT 112: Negative or not required by law. The above report was generated using voice recognition software. It may contain grammatical, syntax or spelling errors. Electronically signed by: Mathew Bustos M.D. 12/12/2023 9:[address] 12/12/23 09:20 CT head/brain wo con CLINICAL HISTORY: 82 years-old Female with Neuro deficit, acute, stroke suspected. Acute strokelike symptoms TECHNIQUE: Multiple axial CT images of the head were obtained without contrast. A dose lowering technique was utilized adhering to the principles of ALARA. CT DOSE: 683.59 mGy.cm COMPARISON: Brain MRI 11/10/2023 FINDINGS: No acute intracranial hemorrhage, midline shift, intracranial mass, hydrocephalus, territorial ischemia or abnormal extra-axial collection. Involutional changes with chronic microvascular ischemic disease. Cerebrovascular calcifications. Low-lying cerebellar tonsils. The calvarium is intact. Prior bilateral lens repair. The paranasal sinuses, mastoid air cells, and middle ear cavities are clear. IMPRESSION: No acute intracranial abnormality identified. ACT 112: Negative or not required by law. The above report was generated using voice recognition software. It may contain grammatical, syntax or spelling errors. Electronically signed by: Mathew Bustos M.D. 12/12/2023 9:32 AM Head CTA 12/12/23 09:26 CT angio head w con, CT angio neck with con CLINICAL HISTORY: 82 years-old Female with CVA. Acute strokelike symptoms with memory loss COMPARISON STUDY: Head CT of same day, chest CT 11/11/2023. TECHNIQUE: Following the IV administration of 120 cc of Optiray, CT angiogram of the head and neck was performed from the aortic arch to the skull apex. Images are reviewed in the axial, sagittal, and coronal planes. 3-D MIPS images are created and assessed. IV contrast was administered without complication. All measurements were obtained according to NASCET criteria. A dose lowering technique was utilized adhering to the principles of ALARA. CT DOSE: 345.46 mGy.cm FINDINGS: CT ANGIOGRAM OF THE HEAD AND NECK: Atherosclerosis of the thoracic aorta demonstrating a four-vessel morphology. There is patency of the innominate and image subclavian arteries. The common carotid arteries are patent. Atherosclerosis of the carotid bulbs and proximal cervical segments of the internal carotid arteries. There is 60% stenosis of the origin of the left ICA and less than 50% stenosis on the right. Bilateral anterior and middle cerebral arteries are also patent. The vertebrobasilar system and posterior cerebral arteries are widely patent. There is no aneurysm, high-grade stenosis, or proximal branch occlusion identified. Dural sinuses appear patent. Emphysema with biapical pleural-parenchymal scarring. Nodular foci consolidation at the lung apices including a 9 mm focus in the right lung apex on image 47 series 4. Findings are unchanged from prior. Degenerative changes of the cervical spine. There are a few scattered hypodense thyroid nodules which are small. IMPRESSION: 1. Atherosclerotic plaque of the left greater than right carotid bulbs. There is 60% stenosis at the origin of the left ICA and less than 50% stenosis on the right. 2. Otherwise unremarkable CTA of the head and neck. 3. Emphysema with biapical pleural parenchymal scarring redemonstrated. ACT 112: Negative or not required by law. The above report was generated using voice recognition software. It may contain grammatical, syntax or spelling errors. Electronically signed by: Mathew Bustos M.D. 12/12/2023 9:51 AM Neck CTA 12/12/23 09:26 CT angio head w con, CT angio neck with con CLINICAL HISTORY: 82 years-old Female with CVA. Acute strokelike symptoms with memory loss COMPARISON STUDY: Head CT of same day, chest CT 11/11/2023. TECHNIQUE: Following the IV administration of 120 cc of Optiray, CT angiogram of the head and neck was performed from the aortic arch to the skull apex. Images are reviewed in the axial, sagittal, and coronal planes. 3-D MIPS images are created and assessed. IV contrast was administered without complication. All measurements were obtained according to NASCET criteria. A dose lowering technique was utilized adhering to the principles of ALARA. CT DOSE: 345.46 mGy.cm FINDINGS: CT ANGIOGRAM OF THE HEAD AND NECK: Atherosclerosis of the thoracic aorta demonstrating a four-vessel morphology. There is patency of the innominate and image subclavian arteries. The common carotid arteries are patent. Atherosclerosis of the carotid bulbs and proximal cervical segments of the internal carotid arteries. There is 60% stenosis of the origin of the left ICA and less than 50% stenosis on the right. Bilateral anterior and middle cerebral arteries are also patent. The vertebrobasilar system and posterior cerebral arteries are widely patent. There is no aneurysm, high-grade stenosis, or proximal branch occlusion identified. Dural sinuses appear patent. Emphysema with biapical pleural-parenchymal scarring. Nodular foci consolidation at the lung apices including a 9 mm focus in the right lung apex on image 47 series 4. Findings are unchanged from prior. Degenerative changes of the cervical spine. There are a few scattered hypodense thyroid nodules which are small. IMPRESSION: 1. Atherosclerotic plaque of the left greater than right carotid bulbs. There is 60% stenosis at the origin of the left ICA and less than 50% stenosis on the right. 2. Otherwise unremarkable CTA of the head and neck. 3. Emphysema with biapical pleural parenchymal scarring redemonstrated. ACT 112: Negative or not required by law. The above report was generated using voice recognition software. It may contain grammatical, syntax or spelling errors. Electronically signed by: Mathew Bustos M.D. 12/12/2023 9:51 AM Discharge Plan Visit Data Chief Complaint: TIA Symptoms Stated Complaint: CONFUSION,HTN, ED Provider: Martha Chavez Discharge Problem: Encephalopathy, Acute UTI Patient Disposition: Admitted As Inpatient Discharge Instructions Interventions: ED Discharge Assessment Last Done: 12/12/23 16:35
[2023-12-12 09:48] LABS: Hematocrit (blood only) 40.7 % (37.0-47.0); Hemoglobin 13.6 g/dl (12.0-16.0); Mean Corpuscular Hemoglobin 31.7 pg (25.0-34.0); Mean Corpuscular Hgb Conc 33.4 g/dL (32.0-36.0); Mean Corpuscular Volume 94.9 fL (80.0-100.0); Mean Platelet Volume 9.4 fL (9.4-12.4); Platelet Count 157 K/uL (130-400); RDW Coefficient of Variation 13.4 % (11.5-14.5); RDW Standard Deviation 46.6 fL (36.4-46.3); Red Blood Count 4.29 M/uL (4.20-5.40); White Blood Count 8.56 K/ul (4.8-10.8)
--- NOTE | 2023-12-12 09:53 | CT Scan Report ---
CT angio head w con, CT angio neck with con CLINICAL HISTORY: 82 years-old Female with CVA. Acute strokelike symptoms with memory loss COMPARISON STUDY: Head CT of same day, chest CT 11/11/2023. TECHNIQUE: Following the IV administration of 120 cc of Optiray, CT angiogram of the head and neck wa s performed from the aortic arch to the skull apex. Images are reviewed in the axial, sagittal, and c oronal planes. 3-D MIPS images are created and assessed. IV contrast was administered without complic ation. All measurements were obtained according to NASCET criteria. A dose lowering technique was uti lized adhering to the principles of ALARA. CT DOSE: 345.46 mGy.cm FINDINGS: CT ANGIOGRAM OF THE HEAD AND NECK: Atherosclerosis of the thoracic aorta demonstrating a four-vessel morphology. There is patency of the innominate and image subclavian arteries. The common carotid arteries are patent. Atherosclerosis of the carotid bulbs and proximal cervical segments of the internal carotid arteries. There is 60% sten osis of the origin of the left ICA and less than 50% stenosis on the right. Bilateral anterior and middle cerebral arteries are also patent. The vertebrobasilar system and poste rior cerebral arteries are widely patent. There is no aneurysm, high-grade stenosis, or proximal bran ch occlusion identified. Dural sinuses appear patent. Emphysema with biapical pleural-parenchymal scarring. Nodular foci consolidation at the lung apices i ncluding a 9 mm focus in the right lung apex on image 47 series 4. Findings are unchanged from prior. Degenerative changes of the cervical spine. There are a few scattered hypodense thyroid nodules whic h are small. IMPRESSION: 1. Atherosclerotic plaque of the left greater than right carotid bulbs. There is 60% stenosis at the origin of the left ICA and less than 50% stenosis on the right. 2. Otherwise unremarkable CTA of the head and neck. 3. Emphysema with biapical pleural parenchymal scarring redemonstrated. ACT 112: Negative or not required by law. The above report was generated using voice recognition software. It may contain grammatical, syntax o r spelling errors. Electronically signed by: Mathew Bustos M.D. 12/12/2023 9:51 AM
[2023-12-12 09:56] LABS: iSTAT Creatinine 0.5 mg/dl (0.6-1.3); iSTAT Hemoglobin 11.6 g/dl (12.0-16.0); iSTAT Ionized Calcium 1.18 mmol/l (1.12-1.32); iSTAT Potassium 3.9 mmol/L (3.3-5.0)
[2023-12-12 09:56] LABS: INR 1.1 (0.9-1.1); Partial Thromboplastin Ratio 0.9; Partial Thromboplastin Time 24 Seconds (21-31); Prothrombin Time 11.4 Seconds (9.0-12.0)
--- NOTE | 2023-12-12 09:59 | XRay Report ---
XR chest 1V portable HISTORY: 82 years-old Female stroke alert COMPARISON: Chest CT 11/11/2023 TECHNIQUE: AP view of the chest FINDINGS: Cardiomediastinal and hilar silhouettes are within normal limits. Emphysema with chronic fibrotic stephanie nges. No pneumothorax or pleural effusion. Bones appear grossly intact. IMPRESSION: Emphysema and fibrosis without acute process of the chest. ACT 112: Negative or not required by law. The above report was generated using voice recognition software. It may contain grammatical, syntax o r spelling errors. Electronically signed by: Mathew Bustos M.D. 12/12/2023 9:58 AM
[2023-12-12 10:25] LABS: Albumin Globulin Ratio 1.1 (0.9-2); Albumin Level 3.9 gm/dl (3.4-5.0); BUN Creatinine Ratio 30.6 (10-20); Bilirubin,Total 0.7 mg/dl (0.2-1.0); Calcium 9.7 mg/dl (8.6-10.3); Creatinine Clr Calc Pharmacy 56.2 ml/min; Est GFR (African American) 96.6 ml/min; Est GFR (Non-African American) 83.4 ml/min; Globulin 3.5 gm/dl (2.5-4.0); Potassium 3.9 mmol/L (3.5-5.1); Total Protein 7.4 gm/dl (6.0-8.3)
[2023-12-12 10:40] LABS: Appearance Urine Turbid (Clear); Bacteria Urine Automated 4+ (None Seen); Bilirubin Urine Negative (Negative); Blood Urine 2+ (Negative); Cast Urine Automated 0-2 /lpf (0-2); Color Urine Yellow; Glucose Urine UA Negative (Negative); Ketones Urine Negative (Negative); Leukocyte Esterase Urine 3+ (Negative); Nitrite Urine Positive (Negative); Protein Urine Trace (Negative); Specific Gravity Urine 1.044 (1.000-1.030); Urobilinogen Urine Negative (Negative); WBC Urine Automated >50 /hpf (0-5); pH Urine 6.5 (4.5-7.5)
[2023-12-12] MEDS: SODIUM CHLORIDE 0.9% 1,000 ML IV ONE (11:00)
[2023-12-12] MEDS: CEFEPIME 2,000 MG/20 ML VIAL IV STA (11:03)
[2023-12-12] MEDS ORDERED: POLYETHYLENE (MIRALAX) 17 GM PACK PO PRN (12:20)
[2023-12-12] MEDS ORDERED: MAGNESIUM HYDROXIDE SUSP 30 ML UDC PO PRN (12:20)
[2023-12-12] MEDS ORDERED: ACETAMINOPHEN 325 MG TAB PO PRN (12:20)
[2023-12-12] MEDS ORDERED: LABETALOL HCL IV 5 MG/ML 20ML IV PRN (12:34)
--- NOTE | 2023-12-12 12:36 | History & Physical Report ---
Date of Service December 12, 2023 Assessment & Plan (1) Encephalopathy: Plan 82yoF with PMHx significant for valvular heart disease (moderate MR, mild TR), hypertension, hyperlipidemia, migraine, recurrent UTIs, past tobacco abuse presenting with episodes of confusion at home. Acute Metabolic Encephalopathy Complicated UTI Pt presenting with episodes of confusion at home. ER physician had the stroke team evaluate her, no further recommendation from [facility] team per ED physician. Head and neck imaging reviewed. UA suggestive of infection, Follow-up admitting blood culture and urine culture. Patient started on cefepime in the ED, will continue same. At probiotic. Labs in AM. Patient already feeling better, gentle IV fluid today. Diet as tolerated. Delirium precautions. Frequent reorientation, avoid sedating medications Please ensure followup with Urology for recurrent UTIs and possible discussion of card setter prophylaxis. Uncontrolled hypertension Metoprolol succinate lowered to 25mg BID recently as BP was relatively controlled c/w home meds, prn meds as well. PCP followup for continued monitoring and further medication adjustments as needed hyperlipidemia: c/w home statin. DVT Px: heparin full code. History of Present Illness Chief Complaint: Acute confusion Primary Care Provider: Sussy Zhu PA-C 82-year-old lady with PMH of valvular heart disease [moderate MR, mild TR], HTN, HLD, migraine, recurrent UTI, past tobacco abuse [quit 10 to 15 years ago] presented with episodes of confusion/some lightheadedness/forgetfulness at home. Patient reports waking up, in about an hour when she went to make her usual recipe, she forgot the recipe. She felt she is not feeling all right and tried to call her son but forgot his phone number as well. She was able to find his phone number written down and called him. Her son did stroke evaluation at home, found symmetric strength bilaterally, no facial drooping, no abnormality in the speech. He feels that the patient was just not right. Hence he brought her to the hospital. Patient denies fever/pain or burning with passing urine/sore throat/cough/numbness/tingling/focal weakness of arms and legs/generalized weakness. Pt reports everytime she gets uti, she get unusual symptoms but burning/pain while passing urine. Patient reports already feeling better with antibiotic and IV fluids in the ED. Patient reports quitting smoking 15 years ago, drinks alcohol rare occasions, denies recreational drug use. Home medications reviewed in detail with patient and her son at bedside. Plan of care discussed in detail with the patient and her son at bedside who voiced understanding and were agreeable to plan of care. Full code as per my discussion with the patient. Allergies Allergy/AdvReac Type Severity Reaction Status Date / Time sulfamethoxazole Allergy Severe Nausea Verified 12/12/23 10:59 [From Bactrim] trimethoprim [From Bactrim] Allergy Severe Nausea Verified 12/12/23 10:59 Penicillins Allergy Intermediate Rash Verified 12/12/23 10:59 nitrofurantoin AdvReac Mild Nausea Verified 12/12/23 10:59 [From Macrobid] Home Medications Medication Instructions Recorded Confirmed Type albuterol sulfate 90 mcg/actuation 2 puff inhalation QID PRN 06/27/18 12/12/23 History aerosol inhaler (ProAir HFA) Shortness Of Breath vitamins A,C,J-uxqv-iowidr 2,148 1 tab PO BID 06/27/18 12/12/23 History mcg-113 mg-45 mg-17.4 mg tablet (PreserVision AREDS) cholecalciferol (vitamin D3) 25 25 mcg PO QAM 04/01/21 12/12/23 History mcg (1,000 unit) capsule (Vitamin D3) faricimab-svoa 6 mg/0.05 mL 6 mg intravitreal UD 10/03/23 12/12/23 History intravitreal solution (Vabysmo) ondansetron HCl 4 mg tablet 4 mg PO Q6H PRN NAUSEA/VOMITING 10/03/23 12/12/23 History aspirin 81 mg tablet,delayed 81 mg PO HS #30 tabs 11/13/23 12/12/23 Rx release metoprolol succinate 25 mg 25 mg PO BID #60 tabs 11/13/23 12/12/23 Rx tablet,extended release 24 hr d-mannose 500 mg capsule 500 mg PO BID 12/12/23 12/12/23 History losartan 25 mg tablet 25 mg PO QAM 12/12/23 12/12/23 History rosuvastatin 40 mg tablet 40 mg PO QAM 12/12/23 12/12/23 History Past Med/Surg History Problem List (Updated 11/11/23 @ 08:08 by Bernard Caruso MD) Encephalopathy Brain TIA (Acute) COVID-19 (Acute) Hyperlipidemia (Chronic) Asthma (Chronic) Degenerative disc disease, cervical (Acute) Weakness (Acute) Surgical History No pertinent past surgical history Family History Mother Myocardial infarction Son Stroke Social History Smoking Status: Former smoker Tobacco Type: Cigarettes Second Hand Exposure: No; Do You Dip or Chew Tobacco: No; Hx Alcohol Use: Yes Hx Substance Use: No Preferred Language: Kazakh Communication Ability: Effective Plant 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 Physical Exam Physical Exam: GENERAL: Alert and oriented x3. NAD, on RA. HEENT: No pallor, no icterus. Pupils equal, round and reactive to light. Oral mucosa moist. NECK: No JVD, no neck masses. HEART: S1 and S2 heard. Regular rate and rhythm. No murmur, no gallop. RESPIRATORY SYSTEM: Normal AP diameter. No accessory muscle use. No wheezing, no crackles. ABDOMEN: Soft, bowel sounds present, nontender, no distention. CENTRAL NERVOUS SYSTEM: No facial droop. Speech is clear. Obeys simple commands. Moves extremities. Bilateral equal strength. EXTREMITIES: No edema, no erythema seen. Results & Data Results & Data Vital Signs (Past 12 Hours) Vital Signs Temp Pulse Pulse Resp BP BP Pulse Ox 12/12/23 10:27 92 H 21 177/105 H 97 12/12/23 10:00 92 H 16 168/83 H 95 12/12/23 09:41 96 H 12/12/23 09:40 36.5 C 91 H 16 155/78 H 95 12/12/23 09:15 36.7 C 88 20 177/89 H 95 O2 Del Method 12/12/23 10:27 12/12/23 10:00 12/12/23 09:41 12/12/23 09:40 Room Air 12/12/23 09:15 Room Air
[2023-12-12] MEDS: ADVANCED PROBIOTIC 625 MG CAPSULE PO SCH (13:31)
[2023-12-12] MEDS: SODIUM CHLORIDE 0.9% 1,000 ML IV SCH (13:35)
--- NOTE | 2023-12-12 14:53 | Electrocardiogram Report ---
Test Reason : Blood Pressure : / mmHG Vent. Rate : 094 BPM Atrial Rate : 094 BPM P-R Int : 170 ms QRS Dur : 072 ms QT Int : 354 ms P-R-T Axes : 069 049 062 degrees QTc Int : 442 ms Sinus rhythm with marked sinus arrhythmia Otherwise normal ECG When compared with ECG of 10-NOV-2023 19:01, No significant change was found Confirmed by Arnol Johnson ([id number]) on 12/12/2023 2:53:05 PM Referred By: REFERRED SELF Confirmed By:Arnol Johnson
[2023-12-12] MEDS ORDERED: ALBUTEROL HFA 8 GM INHALER INH PRN (17:48)
[2023-12-12] MEDS: LOSARTAN POTASSIUM 25 MG TAB PO SCH (19:05)
[2023-12-12] MEDS: CEROVITE ADV FORMULA TAB PO SCH (19:05)
[2023-12-12] MEDS: ASPIRIN 81 MG ECTAB PO SCH (20:05)
[2023-12-12] MEDS: METOPROLOL SUCC 25MG EXT REL TAB PO SCH (20:05)
[2023-12-12] MEDS: HEPARIN SOD 5,000 UNIT/0.5 ML VIAL SQ SCH (20:05)
[2023-12-12] MEDS: CEFEPIME 2,000 MG in SYRINGE 0 ML IV SCH (20:19)
[2023-12-12] MEDS ORDERED: NON-FORMULARY MEDICATION (D-Mannose 500 mg Capsule) PO SCH (21:00)
--- NOTE | 2023-12-13 07:19 | Hospitalist Progress Note ---
Date of Service December 13, 2023 Assessment & Plan (1) Encephalopathy: Plan 82yoF with PMHx significant for valvular heart disease (moderate MR, mild TR), hypertension, hyperlipidemia, migraine, recurrent UTIs, past tobacco abuse presenting with episodes of confusion at home. Acute Metabolic Encephalopathy Complicated UTI Pt presenting with episodes of confusion at home. ER physician had the stroke team evaluate her, no further recommendation from [facility] er team per ED physician. Head and neck imaging reviewed. UA suggestive of infection, Follow-up admitting blood culture and urine culture. Patient started on cefepime in the ED, will continue same. At probiotic. Labs in AM. Patient already feeling better, gentle IV fluid today. Diet as tolerated. Delirium precautions. Frequent reorientation, avoid sedating medications Please ensure followup with Urology for recurrent UTIs and possible discussion of prison prophylaxis. Uncontrolled hypertension Metoprolol succinate lowered to 25mg BID recently as BP was relatively controlled c/w home meds, prn meds as well. PCP followup for continued monitoring and further medication adjustments as needed hyperlipidemia: c/w home statin. DVT Px: heparin full code. Admission and Anticipated Discharge Date Admission Date: December 12, 2023 Results & Data Results & Data Vital Signs (Past 12 Hours) Vital Signs Temp Pulse Pulse Resp BP Pulse Ox O2 Del Method 12/13/23 04:17 36.5 C 76 20 150/75 H 94 Room Air 12/13/23 00:10 36.6 C 75 20 155/71 H 94 Room Air 12/12/23 23:37 74 12/12/23 20:02 36.2 C L 83 20 146/69 H 95 Room Air
[2023-12-13] MEDS: ROSUVASTATIN CALCIUM 20 MG TAB PO SCH (07:53)
[2023-12-13] MEDS: CHOLECALCIFEROL 25 MCG (1000 UNITS) TAB PO SCH (07:53)
[2023-12-13 08:08] LABS: Hemoglobin 13.9 g/dl (12.0-16.0); Mean Corpuscular Hemoglobin 31.4 pg (25.0-34.0); Mean Corpuscular Hgb Conc 33.1 g/dL (32.0-36.0); Mean Corpuscular Volume 94.8 fL (80.0-100.0); Mean Platelet Volume 10.1 fL (9.4-12.4); Platelet Count 166 K/uL (130-400); RDW Coefficient of Variation 13.3 % (11.5-14.5); RDW Standard Deviation 46.5 fL (36.4-46.3); Red Blood Count 4.43 M/uL (4.20-5.40); White Blood Count 8.45 K/ul (4.8-10.8)
[2023-12-13 08:21] LABS: BUN Creatinine Ratio 25.9 (10-20); Calcium 9.5 mg/dl (8.6-10.3); Creatinine Clr Calc Pharmacy 62.1 ml/min; Est GFR (African American) 101.1 ml/min; Est GFR (Non-African American) 87.3 ml/min; Magnesium 1.9 mg/dl (1.7-2.4); Potassium 3.8 mmol/L (3.5-5.1)
--- NOTE | 2023-12-13 15:33 | Hospitalist Progress Note ---
Date of Service December 13, 2023 Assessment & Plan (1) Acute UTI: (2) Acute metabolic encephalopathy: (3) Vaginal pessary in situ: Plan Patient with acute encephalopathy due to urinary tract infection Acute stroke/TIA ruled out Son at bedside updated to patient's condition. Both son and patient had questions about her recurrent UTI. Patient reports that she does see urogynecologist outpatient. Reports that she does have a pessary which she gets maintained every 3 months. We discussed pros and cons of chronic antibiotic suppression for UTI. Hector MedSurepifanio, discontinue telemetry Transition to Rocephin based on previous urine culture sensitivities Encouraged patient to follow-up with urogynecology as an outpatient, she reports she has an appointment in approximately 3 weeks Anticipate pending sensitivities transitioning to oral antibiotics and discharge home tomorrow 40 minutes spent at the bedside, coordinating care, instructions the patient and family and reviewing EMR Admission and Anticipated Discharge Date Admission Date: December 12, 2023 Subjective Patient feeling significantly improved today. Mentation is back to baseline. She is quite concerned about her recurrent UTIs. Physical Exam Physical Exam: Constitutional: Alert HEENT: Mucous membranes moist. Lungs: Clear to auscultation, decreased, no wheezes rales or rhonchi CV: S1-S2, regular Abdomen: Soft, nontender, nondistended Extremities: No significant edema Neuro: No focal deficits Psych: Cooperative, normal mood Results & Data Results & Data Vital Signs (Past 12 Hours) Vital Signs Temp Pulse Pulse Resp BP Pulse Ox O2 Del Method 12/13/23 14:54 36.6 C 75 18 147/75 H 95 Room Air 12/13/23 12:00 36.5 C 73 16 146/78 H 95 Room Air 12/13/23 07:33 36.6 C 77 18 156/77 H 96 Room Air 12/13/23 07:20 77 12/13/23 04:17 36.5 C 76 20 150/75 H 94 Room Air Diagnostic Findings Reviewed imaging, laboratory and diagnostic studies. Pertinent findings as below. Urine culture growing gram-negative bacilli WBCs 8.4 BMP stable
[2023-12-13] MEDS: cefTRIAXone SODIUM 1,000 MG/50 ML BAG IV SCH (20:20)
[2023-12-14] MEDS: LOSARTAN POTASSIUM 50 MG TAB PO SCH (11:07)
--- NOTE | 2023-12-14 12:09 | Discharge Summary ---
Discharge Summary Date of Service December 14, 2023 Principal Dx & Hospital Course #1 = Principal Diagnosis (1) Acute UTI: (2) Acute metabolic encephalopathy: (3) Vaginal pessary in situ: (4) Hypertension: Plan Patient was admitted to the hospital with acute encephalopathy. She was ruled out for stroke with CT imaging. Urinalysis was significantly abnormal and started antibiotics for UTI. Antibiotics were narrowed based on previous urine culture. Through the course of her hospitalization her mental status and encephalopathy resolved and improved. She is back to her baseline. Son was at the bedside during her hospitalization and agreed that she was back to her baseline. Patient does have known cystocele has a pessary in place that is followed regularly by her data coder operator. She also has establish care with a urogynecologist and has an appointment with them in approximately 3 weeks. Patient's condition continued to improve throughout her hospitalization. Urine culture eventually grew out Citrobacter. This was resistant to the Rocephin. I reviewed with her her adverse reactions with the oral medications. She said that she only had very minimal nausea with the Macrobid and she would be able to tolerate this. She was then transition to oral Macrobid. Her other vital signs and symptoms had improved. Her losartan dose was increased slightly for better blood pressure control. She was confident she can return to independent living. Her son will be able to transport her and get her settled in. She will follow- up with her PCP and your data coder operator as scheduled. Notes For Next Care Provider Continue to follow-up with your data coder operator for pessary management as well as further discussion on recurrent UTIs Medication Changes From Visit Losartan increased for blood pressure control, continue to monitor Macrobid for treatment of UTI Admission HPI Per Admitting Provider 82-year-old lady with PMH of valvular heart disease [moderate MR, mild TR], HTN, HLD, migraine, recurrent UTI, past tobacco abuse [quit 10 to 15 years ago] presented with episodes of confusion/some lightheadedness/forgetfulness at home. Patient reports waking up, in about an hour when she went to make her usual recipe, she forgot the recipe. She felt she is not feeling all right and tried to call her son but forgot his phone number as well. She was able to find his phone number written down and called him. Her son did stroke evaluation at home, found symmetric strength bilaterally, no facial drooping, no abnormality in the speech. He feels that the patient was just not right. Hence he brought her to the hospital. Patient denies fever/pain or burning with passing urine/sore throat/cough/numbness/tingling/focal weakness of arms and legs/generalized weakness. Pt reports everytime she gets uti, she get unusual symptoms but burning/pain while passing urine. Patient reports already feeling better with antibiotic and IV fluids in the ED. Patient reports quitting smoking 15 years ago, drinks alcohol rare occasions, denies recreational drug use. Home medications reviewed in detail with patient and her son at bedside. Plan of care discussed in detail with the patient and her son at bedside who voiced understanding and were agreeable to plan of care. Full code as per my discussion with the patient. Admission Exam Per Admitting Provider See H&P Discharge Exam Constitutional: Alert, sitting on edge of the bed, dressed in fine pajamas HEENT: Mucous membranes moist. Lungs: Clear to auscultation, decreased, no wheezes rales or rhonchi CV: S1-S2, regular Abdomen: Soft, nontender, nondistended Extremities: No significant edema Neuro: No focal deficits Psych: Cooperative, normal mood Updated Medication List Medication Instructions Recorded Confirmed Type albuterol sulfate 90 mcg/actuation 2 puff inhalation QID PRN 06/27/18 12/12/23 History aerosol inhaler (ProAir HFA) Shortness Of Breath vitamins A,C,E-ayrj-xhsbot 2,148 1 tab PO BID 06/27/18 12/12/23 History mcg-113 mg-45 mg-17.4 mg tablet (PreserVision AREDS) cholecalciferol (vitamin D3) 25 25 mcg PO QAM 04/01/21 12/12/23 History mcg (1,000 unit) capsule (Vitamin D3) faricimab-svoa 6 mg/0.05 mL 6 mg intravitreal UD 10/03/23 12/12/23 History intravitreal solution (Vabysmo) ondansetron HCl 4 mg tablet 4 mg PO Q6H PRN NAUSEA/VOMITING 10/03/23 12/12/23 History aspirin 81 mg tablet,delayed 81 mg PO HS #30 tabs 11/13/23 12/12/23 Rx release metoprolol succinate 25 mg 25 mg PO BID #60 tabs 11/13/23 12/12/23 Rx tablet,extended release 24 hr d-mannose 500 mg capsule 500 mg PO BID 12/12/23 12/12/23 History losartan 25 mg tablet 25 mg PO QAM 12/12/23 12/12/23 History rosuvastatin 40 mg tablet 40 mg PO QAM 12/12/23 12/12/23 History losartan 50 mg tablet 100 mg (2 x 50 mg) PO QAM 30 days 12/14/23 Rx #60 tabs nitrofurantoin 100 mg PO BID 10 days #20 caps 12/14/23 Rx monohydrate/macrocrystals 100 mg capsule Hospital Stay Data Consultations 12/12/23 14:47 ED Decision to Admit Stat Diagnostic Imagining Performed 12/12/23 09:20 CT head/brain wo con Stat 12/12/23 09:26 CT angio head w con Stat CT angio neck with con Stat Reviewed imaging, laboratory and diagnostic studies. Pertinent findings as below. CT head and neck no acute findings Urine culture grew out Citrobacter sensitive to Macrobid and Bactrim WBCs 8.4, hemoglobin 13.9 Basic metabolic profile within normal ranges Pending Results Patient Have Any Pending Studies at Discharge: No Discharge Instructions Given to Patient (Per Discharging Provider) Complete course of antibiotics Keep appointment with your urogynecologist Total Time Total Time Spent Total Time Spent (In Minutes): 33
[2023-12-14] MEDS: NITROFURANTOIN MONOHYDRATE 100 MG CAP PO SCH (12:24)
== END 2023-12-14 13:27 | disposition home health service (06) | DRG 689 ==
LOC: ED 09:06 → SUATTDRO 12:20 → EDINP 12:20 → 2N 16:35 → 3N 12-13 20:20

== ENCOUNTER 2024-04-17 19:34 | Observation (INO) ==
--- NOTE | 2024-04-17 19:53 | Emergency Department Note ---
Impression & Plan Stroke-like symptoms ED Provider Note HISTORY OF PRESENT ILLNESS: Patient is a an 83-year-old female presenting with strokelike symptoms. The patient presented to the ER with acute onset of difficulty speaking. Son provides history and reports the patient was doing laundry about 45 minutes prior to arrival when she suddenly had difficulties finding her words and communicating what she was trying to say. She reportedly was having difficulties working the washing machine, which she has never had before. Son reports that she gets like this sometimes when she has a urinary tract infection. Patient is on a baby aspirin daily but no other anticoagulation therapy. Patient is complaining of a slight diffuse headache. She denies any chest pain or shortness of breath. Denies any recent fevers. Denies any abdominal pain, nausea or vomiting. Denies any recent dysuria or hematuria. Son reports that the patient seems to be having difficulties finding her words but no slurred speech. He states that she was trying to get ready for bed and was having difficulties putting clothes on and doing basic activities. ROS: as above PHYSICAL EXAM: Constitutional: Patient appears in no acute distress. HENT: Head: Normocephalic and atraumatic. Eyes: EOMI, PERRL Mouth/Throat: Mucous membranes moist. Neck: Trachea midline. Neck supple. Cardiovascular: RRR, No murmurs, rubs or gallops. Intact distal pulses. Pulmonary/Chest: No respiratory distress. Breath sounds clear and equal bilaterally. No wheezes or rales. Abdominal: Abdomen soft, no tenderness, rebound or guarding. Musculoskeletal: No edema, tenderness or deformity noted. Skin: Warm and dry. No rash, erythema, pallor or cyanosis Psychiatric: Appropriate mood and affect for situation. Neurological: Alert and keenly responsive. Facies symmetric. Able to raise eyebrows, close eyes, smile, puff mouth, stick out tongue, move tongue left and right and raise palate symmetrically. Able to shrug shoulders. PERRLA. SILT to forehead below eye and at jawline. Can hear soft noise bilaterally. Good finger to nose. Strength 5/5 in bilateral upper and lower extremities. MDM: - Vitals signs showed hypertension and tachycardia. Given that patient is within the window for TNK administration and she is profoundly hypertensive, 10 mg of IV labetalol was administered. - History obtained via patient and patient's son. History as above. - Chronic conditions affecting care: valvular heart disease; recurrent UTI - Differential diagnoses include, but are not limited to: CVA; intracranial hemorrhage; ACS; pneumonia; dissection - Order placed for continuous cardiac monitoring. At this time, monitor showed rate of 87 bpm with normal sinus rhythm, per my interpretation. - External medical records reviewed. Discharge summary dated 12/14/2023 was reviewed. Patient was admitted that time for acute UTI causing metabolic encephalopathy. - EKG interpreted by myself showed normal sinus rhythm. Rate 97 bpm. QT 352. No acute ischemic changes. - Laboratory workup interpreted by myself showed normal WBC; normal PT/INR; stable electrolytes; normal troponin - CXR negative for pneumonia, per my interpretation - UA negative for infection - CT head wo contrast negative for acute pathology - CTA head/neck showed 50% stensosis of left ICA. - Patient is a TNK candidate, based on time of onset. [facility] [address] telestroke was consulted. However, there was a delay in them evaluating the patient secondary to other telestroke calls. However, the patient has an NIH of 1, so though time-gann is TNK candidate, do not think her symptoms are appropriate For TNK administration. - Discussed case with telestroke physician at [facility] [address], Dr. Augustine, at 21:30. She recommended that patient be loaded with 325 mg aspirin and 300 mg of Plavix. Recommended a.m. fasting lipid level and redose statin if needed. Recommended an MRI of the brain and an echo and getting a hemoglobin A1c. Recommended keeping blood pressures mildly permissive and using labetalol for systolic over 180 or diastolic over 100 until stroke is ruled out. She notes that the patient has an elevated BUN and creatinine and recommends bolus of normal saline continue maintenance at 75 cc/h. - Patient given 325 mg PO aspirin and 300 mg PO plavix. - Discussion was had with registered nurse hh case manager about patient's case and need for admission - Hospitalist, Dr. Caruso, consulted for admission - [facility] ASSESSMENT AND PLAN: Diagnosis: Strokelike symptoms Plan: Admit Past Med/Surg History Problem List (Updated 04/17/24 @ 22:03 by Rosalind Charles MD) Stroke-like symptoms (Acute) Vaginal pessary in situ Acute metabolic encephalopathy Acute UTI (Acute) Encephalopathy (Acute) Brain TIA (Acute) COVID-19 (Acute) Hyperlipidemia (Chronic) Asthma (Chronic) Degenerative disc disease, cervical (Acute) Weakness (Acute) Surgical History No pertinent past surgical history Family History Mother Myocardial infarction Son Stroke Social History Smoking Status: Never smoker Tobacco Type: Cigarettes Second Hand Exposure: No; Do You Dip or Chew Tobacco: No; Hx Alcohol Use: Yes Hx Substance Use: No Preferred Language: Israeli Communication Ability: Effective Manager Product Support Required: No Beliefs That Will Affect Care: None marital status: Current Living Situation: Alone Current Living Situation Comment: [employer] current occupational status: retired Feels Safe at Home: Yes Assistive Devices: None Allergies Allergies Allergy/AdvReac Type Severity Reaction Status Date / Time sulfamethoxazole Allergy Severe Nausea Verified 04/17/24 21:44 [From Bactrim] trimethoprim [From Bactrim] Allergy Severe Nausea Verified 04/17/24 21:44 Penicillins Allergy Intermediate Rash Verified 04/17/24 21:44 nitrofurantoin AdvReac Mild Nausea Verified 04/17/24 21:44 [From Macrobid] Home Meds Home Medications Medication Instructions Recorded Confirmed albuterol sulfate 90 mcg/actuation 2 puff inhalation QID PRN 06/27/18 04/17/24 aerosol inhaler (ProAir HFA) Shortness Of Breath vitamins A,C,O-pqhe-yoxkeu 2,148 1 tab PO BID 06/27/18 04/17/24 mcg-113 mg-45 mg-17.4 mg tablet (PreserVision AREDS) cholecalciferol (vitamin D3) 25 25 mcg PO QAM 04/01/21 04/17/24 mcg (1,000 unit) capsule (Vitamin D3) faricimab-svoa 6 mg/0.05 mL 6 mg intravitreal UD 10/03/23 04/17/24 intravitreal solution (Vabysmo) d-mannose 500 mg capsule 500 mg PO BID 12/12/23 04/17/24 rosuvastatin 40 mg tablet 40 mg PO QAM 12/12/23 04/17/24 Previous Rx's Medication Instructions Recorded aspirin 81 mg tablet,delayed 81 mg PO HS #30 tabs 11/13/23 release metoprolol succinate 25 mg 25 mg PO BID #60 tabs 11/13/23 tablet,extended release 24 hr ondansetron HCl 4 mg tablet 4 mg PO Q6H PRN NAUSEA/VOMITING 12/14/23 #10 tabs Results & Data (ED) Vital Signs Vital Signs - 24 hr 04/17/24 19:37 04/17/24 20:08 04/17/24 20:08 Temperature 36.8 C Temperature Source Temporal Artery Scan Pulse Rate 96 H 106 H Pulse Rate [Apical] Pulse Rhythm Regular Pulse Rhythm [Apical] Pulse Strength [Apical] Respiratory Rate 16 24 Respiratory Effort / Characteristics Respiratory Depth Respiratory Pattern Blood Pressure 197/92 H Blood Pressure [Left Arm] Blood Pressure Mean 127 Blood Pressure Mean [Left Arm] Pulse Oximetry 97 95 95 Oxygen Delivery Method Room Air Room Air Room Air Sepsis Recent Fever Within 48 Hours No Sepsis New/Unexplained Change in Mental Status No Sepsis Action Taken by Nursing No Action Required 04/17/24 20:11 04/17/24 20:12 04/17/24 20:16 Temperature Temperature Source Pulse Rate 97 H 97 H Pulse Rate [Apical] 93 H Pulse Rhythm Pulse Rhythm [Apical] Regular Pulse Strength [Apical] Normal Respiratory Rate 19 Respiratory Effort / Characteristics Non-Labored Spontaneous Respiratory Depth Normal Respiratory Pattern Regular Blood Pressure 177/94 H Blood Pressure [Left Arm] 177/94 H Blood Pressure Mean Blood Pressure Mean [Left Arm] 121 Pulse Oximetry 96 Oxygen Delivery Method Room Air Sepsis Recent Fever Within 48 Hours Sepsis New/Unexplained Change in Mental Status Sepsis Action Taken by Nursing 04/17/24 20:21 04/17/24 20:29 Temperature Temperature Source Pulse Rate 96 H 87 Pulse Rate [Apical] Pulse Rhythm Pulse Rhythm [Apical] Pulse Strength [Apical] Respiratory Rate 16 Respiratory Effort / Characteristics Respiratory Depth Respiratory Pattern Blood Pressure 160/82 H 155/78 H Blood Pressure [Left Arm] Blood Pressure Mean 108 Blood Pressure Mean [Left Arm] Pulse Oximetry 96 Oxygen Delivery Method Sepsis Recent Fever Within 48 Hours Sepsis New/Unexplained Change in Mental Status Sepsis Action Taken by Nursing Laboratory Data 04/17/24 19:53 04/17/24 19:53 Lab Results 10/21/24 10/21/24 10/21/24 Range/Units 19:50 19:53 19:59 WBC 7.93 (4.8-10.8) K/ul RBC 4.42 (4.20-5.40) M/uL Hgb 13.1 (12.0-16.0) g/dl POC Hgb 15.0 (12.0-16.0) g/dl Hct 40.4 (37.0-47.0) % POC Hct 44 (37-47) % MCV 91.4 (80.0-100.0) fL MCH 29.6 (25.0-34.0) pg MCHC 32.4 (32.0-36.0) g/dL RDW Std Deviation 51.5 H (36.4-46.3) fL RDW Coeff of Sherrill 15.3 H (11.5-14.5) % Plt Count 167 (130-400) K/uL MPV 10.2 (9.4-12.4) fL PT 11.2 (9.0-12.0) Seconds INR 1.0 (0.9-1.1) APTT 24 (21-31) Seconds PTT Ratio 0.9 POC Sodium 139 (135-144) mmol/L Sodium 136 (136-145) mmol/L POC Potassium 3.9 (3.3-5.0) mmol/L Potassium 3.8 (3.5-5.1) mmol/L POC Chloride 103 (101-112) mmol/L Chloride 103 (98-107) mmol/L Carbon Dioxide 26 (21-32) mmol/L POC Total CO2 26 (24-31) mmol/L Anion Gap 7 (3-11) POC Anion Gap 15.0 L (16-25) mmol/L POC BUN 19 H (7-18) mg/dl BUN 19 (6-23) mg/dl Creatinine 0.72 (0.6-1.2) mg/dl POC Creatinine 0.7 (0.6-1.3) mg/dl Est Cr Clr Drug Dosing 43.9 ml/min eGFR 82.39 BUN/Creatinine Ratio 26.4 H (10-20) Glucose 92 (70-99(Fasting)) mg/dl POC Glucose 88 (70-99) mg/dl POC Glucose (other) 92 (70-99) mg/dl Calcium 9.6 (8.6-10.3) mg/dl POC Ioniz Calcium Mike 1.19 (1.12-1.32) mmol/l Magnesium 1.9 (1.7-2.4) mg/dl Total Bilirubin 0.6 (0.2-1.0) mg/dl AST 39 (13-39) U/L ALT 23 (7-52) U/L Alkaline Phosphatase 73 (34-104) U/L Troponin I High Sens 8.5 (0-14) pg/ml Total Protein 8.4 H (6.0-8.3) gm/dl Albumin 4.4 (3.4-5.0) gm/dl Globulin 4.0 (2.5-4.0) gm/dl Albumin/Globulin Ratio 1.1 (0.9-2) Urine Color Urine Appearance (Clear) Urine pH (4.5-7.5) Ur Specific Odem (1.000-1.030) Urine Protein (Negative) Urine Glucose (UA) (Negative) Urine Ketones (Negative) Urine Blood (Negative) Urine Nitrite (Negative) Urine Bilirubin (Negative) Urine Urobilinogen (Negative) Ur Leukocyte Esterase (Negative) 04/17/24 Range/Units 20:20 WBC (4.8-10.8) K/ul RBC (4.20-5.40) M/uL Hgb (12.0-16.0) g/dl POC Hgb (12.0-16.0) g/dl Hct (37.0-47.0) % POC Hct (37-47) % MCV (80.0-100.0) fL MCH (25.0-34.0) pg MCHC (32.0-36.0) g/dL RDW Std Deviation (36.4-46.3) fL RDW Coeff of Sherrill (11.5-14.5) % Plt Count (130-400) K/uL MPV (9.4-12.4) fL PT (9.0-12.0) Seconds INR (0.9-1.1) APTT (21-31) Seconds PTT Ratio POC Sodium (135-144) mmol/L Sodium (136-145) mmol/L POC Potassium (3.3-5.0) mmol/L Potassium (3.5-5.1) mmol/L POC Chloride (101-112) mmol/L Chloride (98-107) mmol/L Carbon Dioxide (21-32) mmol/L POC Total CO2 (24-31) mmol/L Anion Gap (3-11) POC Anion Gap (16-25) mmol/L POC BUN (7-18) mg/dl BUN (6-23) mg/dl Creatinine (0.6-1.2) mg/dl POC Creatinine (0.6-1.3) mg/dl Est Cr Clr Drug Dosing ml/min eGFR BUN/Creatinine Ratio (10-20) Glucose (70-99(Fasting)) mg/dl POC Glucose (70-99) mg/dl POC Glucose (other) (70-99) mg/dl Calcium (8.6-10.3) mg/dl POC Ioniz Calcium Mike (1.12-1.32) mmol/l Magnesium (1.7-2.4) mg/dl Total Bilirubin (0.2-1.0) mg/dl AST (13-39) U/L ALT (7-52) U/L Alkaline Phosphatase (34-104) U/L Troponin I High Sens (0-14) pg/ml Total Protein (6.0-8.3) gm/dl Albumin (3.4-5.0) gm/dl Globulin (2.5-4.0) gm/dl Albumin/Globulin Ratio (0.9-2) Urine Color Yellow Urine Appearance Clear (Clear) Urine pH 6.5 (4.5-7.5) Ur Specific Odem 1.033 H (1.000-1.030) Urine Protein Negative (Negative) Urine Glucose (UA) Negative (Negative) Urine Ketones Negative (Negative) Urine Blood Negative (Negative) Urine Nitrite Negative (Negative) Urine Bilirubin Negative (Negative) Urine Urobilinogen Negative (Negative) Ur Leukocyte Esterase Negative (Negative) Administered Medications Discontinued Medications Ioversol (Optiray 320 125ml) 119 ml IV ONCE ONE Stop: 04/17/24 20:05 Last Admin: 04/17/24 20:04 Dose: 119 ml Documented By: BEATRIZ Labetalol HCl (Labetalol Hcl Iv 5 Mg/Ml 20ml) 10 mg IV NOW STA Stop: 04/17/24 20:03 Last Admin: 04/17/24 20:11 Dose: 10 mg Documented By: HEIDYW Imaging Data Radiologist's Impression: Head CT 04/17/24 19:50 CR Exam(s): CT HEAD Without Contrast EXAM: CT Head Without Intravenous Contrast CLINICAL HISTORY: Reason for exam: Neuro deficit, acute, stroke suspected. TECHNIQUE: Axial computed tomography images of the head/brain without intravenous contrast. CTDI is 45.33 mGy and DLP is 1060.1 mGy-cm. Automated exposure control was utilized for the study. A dose lowering technique was utilized adhering to the principles of ALARA. COMPARISON: Head CT 04/17/24. FINDINGS: Brain: No mass effect or acute infarct. No acute hemorrhage. Mild atrophy and chronic white matter disease, stable. Ventricles: No hydrocephalus or midline shift. Bones/joints: No skull fracture. Soft tissues: No scalp hematoma. Visualized Sinuses: Clear. Mastoid air cells: No mastoid effusion. IMPRESSION: 1. Stable age-related findings. 2. No acute infarct, bleed, or acute intracranial abnormality. Communications: Call Doctor Stroke Electronically signed by: Jana Hand M.D. 04/17/24 20:18 PM Head CTA 04/17/24 19:50 CR Exam(s): CTA HEAD With Contrast IV Amt: 119ml optiray 320 EXAM: CT Angiography Head With Intravenous Contrast CLINICAL HISTORY: Reason for exam: stroke like symptoms. TECHNIQUE: Axial computed tomographic angiography images of the head with intravenous contrast. CTDI is 45.33 mGy and DLP is 1060.1 mGy-cm. Automated exposure control was utilized for the study. A dose lowering technique was utilized adhering to the principles of ALARA. MIP reconstructed images were created and reviewed. Mild motion and venous contamination limits detail. CONTRAST: Patient received 119ml optiray 320 of IV contrast COMPARISON: Head CT done earlier. FINDINGS: Right internal carotid artery: Patent. Right anterior cerebral artery: Patent. Right middle cerebral artery: Patent. Right posterior cerebral artery: Patent. Right vertebral artery: Patent. Left internal carotid artery: Patent. Left anterior cerebral artery: Patent. Left middle cerebral artery: Patent. Left posterior cerebral artery: Patent. Left vertebral artery: Patent. Basilar artery: Patent. Other: Mild atherosclerosis bilateral cavernous ICA, without significant stenosis. Patent dural venous sinuses. IMPRESSION: 1. No aneurysm or large vessel occlusion. Communications: Call Doctor Stroke Electronically signed by: Jana Hand M.D. 04/17/24 20:25 PM Neck CTA 04/17/24 19:50 CR Exam(s): CTA NECK With Contrast IV Amt: 119ml optiray 320 EXAM: CT Angiography Neck With Intravenous Contrast CLINICAL HISTORY: Reason for exam: stroke like symptoms. Word finding TECHNIQUE: Routine carotid CT angiography protocol was performed with intravenous contrast. NASCET criteria using the distal ICAs for comparison were used for evaluation of stenoses. CTDI is 45.33 mGy and DLP is 1060.1 mGy-cm. Automated exposure control was utilized for the study. A dose lowering technique was utilized adhering to the principles of ALARA. MIP reconstructed images were created and reviewed. CONTRAST: Patient received 119ml optiray 320 of IV contrast COMPARISON: None. FINDINGS: Right common carotid artery: Patent. Right internal carotid artery: Patent. Atherosclerosis with less than 50% stenosis. Right vertebral artery: Patent. Left common carotid artery: Patent. Left internal carotid artery: Patent. Moderate atherosclerosis of the bifurcation, results in moderate, 50-60% stenosis. Left vertebral artery: Patent. Codominant. Other: IMPRESSION: 1. Moderate, 50-60% LEFT ICA stenosis. No other dissection/occlusion/significant stenosis. CAROTID STENOSIS REFERENCE USING NASCET CRITERIA: % ICA stenosis = (1 - narrowest ICA diameter/diameter of distal cervical ICA) x 100. Mild - <50% stenosis. Moderate - 50-69% stenosis. Severe - 70-94% stenosis. Near occlusion - 95-99% stenosis. Occluded - 100% stenosis. Communications: Call Doctor Stroke Electronically signed by: Jana Hand M.D. 04/17/24 20:27 PM Discharge Plan Visit Data Chief Complaint: TIA Symptoms Stated Complaint: TIA SYMPTOMS ED Provider: Rosalind Charles Discharge Problem: Stroke-like symptoms Forms Stand Alone Forms: My [facility] Prescriptions Prescriptions: No Action albuterol sulfate [ProAir HFA] 90 mcg/actuation Hfa Aerosol Inhaler 2 puff INHALATION QID PRN (Reason: Shortness Of Breath) PreserVision AREDS [id number] Tablet 1 tab PO BID cholecalciferol (vitamin D3) [Vitamin D3] 25 mcg (1,000 unit) Capsule 25 mcg PO QAM metoprolol succinate 25 mg Tablet Extended Release 24 Hr 25 mg PO BID Qty: 60 0RF aspirin 81 mg Tablet,Delayed Release (Dr/Ec) 81 mg PO HS Qty: 30 0RF rosuvastatin 40 mg tablet 40 mg PO QAM d-mannose 500 mg Capsule 500 mg PO BID ondansetron HCl 4 mg tablet 4 mg PO Q6H PRN (Reason: NAUSEA/VOMITING) Qty: 10 0RF Vabysmo 6 mg/0.05 mL Solution 6 mg INTRAVITREAL UD Referrals Referrals: Sussy Zhu PA-C [Primary Care Provider] -
[2024-04-17] MEDS: OPTIRAY 320 125ml IV ONE (20:04)
[2024-04-17 20:06] LABS: Hematocrit (blood only) 40.4 % (37.0-47.0); Hemoglobin 13.1 g/dl (12.0-16.0); Mean Corpuscular Hemoglobin 29.6 pg (25.0-34.0); Mean Corpuscular Hgb Conc 32.4 g/dL (32.0-36.0); Mean Corpuscular Volume 91.4 fL (80.0-100.0); Mean Platelet Volume 10.2 fL (9.4-12.4); Platelet Count 167 K/uL (130-400); RDW Coefficient of Variation 15.3 % (11.5-14.5); RDW Standard Deviation 51.5 fL (36.4-46.3); Red Blood Count 4.42 M/uL (4.20-5.40); White Blood Count 7.93 K/ul (4.8-10.8)
[2024-04-17] MEDS: LABETALOL HCL IV 5 MG/ML 20ML IV STA (20:11)
[2024-04-17 20:12] LABS: iSTAT Creatinine 0.7 mg/dl (0.6-1.3); iSTAT Ionized Calcium 1.19 mmol/l (1.12-1.32); iSTAT Potassium 3.9 mmol/L (3.3-5.0)
--- NOTE | 2024-04-17 20:19 | CT Scan Report ---
Exam(s): CT HEAD Without Contrast EXAM: CT Head Without Intravenous Contrast CLINICAL HISTORY: Reason for exam: Neuro deficit, acute, stroke suspected. TECHNIQUE: Axial computed tomography images of the head/brain without intravenous contrast. CTDI is 45.33 mGy and DLP is 1060.1 mGy-cm. Automated exposure control was utilized for the study. A dose lowering technique was utilized adhering to the principles of ALARA. COMPARISON: Head CT 04/17/24. FINDINGS: Brain: No mass effect or acute infarct. No acute hemorrhage. Mild atrophy and chronic white matter disease, stable. Ventricles: No hydrocephalus or midline shift. Bones/joints: No skull fracture. Soft tissues: No scalp hematoma. Visualized Sinuses: Clear. Mastoid air cells: No mastoid effusion. IMPRESSION: 1. Stable age-related findings. 2. No acute infarct, bleed, or acute intracranial abnormality. Communications: Call Doctor Stroke Electronically signed by: Jana Hand M.D. 04/17/24 20:18 PM
[2024-04-17 20:24] LABS: Albumin Globulin Ratio 1.1 (0.9-2); Albumin Level 4.4 gm/dl (3.4-5.0); BUN Creatinine Ratio 26.4 (10-20); Bilirubin,Total 0.6 mg/dl (0.2-1.0); Calcium 9.6 mg/dl (8.6-10.3); Creatinine Clr Calc Pharmacy 43.9 ml/min; Magnesium 1.9 mg/dl (1.7-2.4); Potassium 3.8 mmol/L (3.5-5.1); Total Protein 8.4 gm/dl (6.0-8.3)
--- NOTE | 2024-04-17 20:26 | CT Scan Report ---
Exam(s): CTA HEAD With Contrast IV Amt: 119ml optiray 320 EXAM: CT Angiography Head With Intravenous Contrast CLINICAL HISTORY: Reason for exam: stroke like symptoms. TECHNIQUE: Axial computed tomographic angiography images of the head with intravenous contrast. CTDI is 45.33 mGy and DLP is 1060.1 mGy-cm. Automated exposure control was utilized for the study. A dose lowering technique was utilized adhering to the principles of ALARA. MIP reconstructed images were created and reviewed. Mild motion and venous contamination limits detail. CONTRAST: Patient received 119ml optiray 320 of IV contrast COMPARISON: Head CT done earlier. FINDINGS: Right internal carotid artery: Patent. Right anterior cerebral artery: Patent. Right middle cerebral artery: Patent. Right posterior cerebral artery: Patent. Right vertebral artery: Patent. Left internal carotid artery: Patent. Left anterior cerebral artery: Patent. Left middle cerebral artery: Patent. Left posterior cerebral artery: Patent. Left vertebral artery: Patent. Basilar artery: Patent. Other: Mild atherosclerosis bilateral cavernous ICA, without significant stenosis. Patent dural venous sinuses. IMPRESSION: 1. No aneurysm or large vessel occlusion. Communications: Call Doctor Stroke Electronically signed by: Jana Hand M.D. 04/17/24 20:25 PM
--- NOTE | 2024-04-17 20:28 | CT Scan Report ---
Exam(s): CTA NECK With Contrast IV Amt: 119ml optiray 320 EXAM: CT Angiography Neck With Intravenous Contrast CLINICAL HISTORY: Reason for exam: stroke like symptoms. Word finding TECHNIQUE: Routine carotid CT angiography protocol was performed with intravenous contrast. NASCET criteria using the distal ICAs for comparison were used for evaluation of stenoses. CTDI is 45.33 mGy and DLP is 1060.1 mGy-cm. Automated exposure control was utilized for the study. A dose lowering technique was utilized adhering to the principles of ALARA. MIP reconstructed images were created and reviewed. CONTRAST: Patient received 119ml optiray 320 of IV contrast COMPARISON: None. FINDINGS: Right common carotid artery: Patent. Right internal carotid artery: Patent. Atherosclerosis with less than 50% stenosis. Right vertebral artery: Patent. Left common carotid artery: Patent. Left internal carotid artery: Patent. Moderate atherosclerosis of the bifurcation, results in moderate, 50-60% stenosis. Left vertebral artery: Patent. Codominant. Other: IMPRESSION: 1. Moderate, 50-60% LEFT ICA stenosis. No other dissection/occlusion/significant stenosis. CAROTID STENOSIS REFERENCE USING NASCET CRITERIA: % ICA stenosis = (1 - narrowest ICA diameter/diameter of distal cervical ICA) x 100. Mild - <50% stenosis. Moderate - 50-69% stenosis. Severe - 70-94% stenosis. Near occlusion - 95-99% stenosis. Occluded - 100% stenosis. Communications: Call Doctor Stroke Electronically signed by: Jana Hand M.D. 04/17/24 20:27 PM
[2024-04-17 20:29] LABS: Troponin I High Sensitivity 8.5 pg/ml (0-14)
[2024-04-17 20:42] LABS: Appearance Urine Clear (Clear); Bilirubin Urine Negative (Negative); Blood Urine Negative (Negative); Color Urine Yellow; Glucose Urine UA Negative (Negative); Ketones Urine Negative (Negative); Leukocyte Esterase Urine Negative (Negative); Nitrite Urine Negative (Negative); Protein Urine Negative (Negative); Specific Gravity Urine 1.033 (1.000-1.030); Urobilinogen Urine Negative (Negative); pH Urine 6.5 (4.5-7.5)
[2024-04-17 20:49] LABS: Partial Thromboplastin Ratio 0.9; Partial Thromboplastin Time 24 Seconds (21-31); Prothrombin Time 11.2 Seconds (9.0-12.0)
[2024-04-17] MEDS: ASPIRIN CHEW 324 MG PO STA (22:29)
[2024-04-17] MEDS: CLOPIDOGREL BISULFATE 300 MG TAB PO STA (22:29)
[2024-04-17] MEDS: POTASSIUM CHLORIDE PWD 20 MEQ PACK PO STA (22:29)
[2024-04-17] MEDS: MAGNESIUM SULFATE / D5W 1 GM/100 ML BAG IV ONE (22:34)
[2024-04-17] MEDS: SODIUM CHLORIDE 0.9% 500 ML IV ONE (22:35)
--- NOTE | 2024-04-17 22:48 | History & Physical Report ---
Date of Service April 17, 2024 Assessment & Plan (1) Brain TIA: Plan: Presenting as apraxia/aphasia ? Possible aspirin failure Hypertension elevated secondary to above Moderate MR hyperlipidemia, on statin Rx recurrent UTIs past tobacco abuse OBS Medical telemetry Neurochecks Plavix in addition to aspirin as [facility] neurologist recommendations as per ED provider. Continue statin Rx Permissive hypertension MRI brain, TTE for stroke workup Update lipid panel DVT prophylaxis. Lovenox subcu Full code Patient son requesting updates providers. Mr. Tanner Garcia, contact #[phone]. Text document was generated using [employer] voice recognition software. It may contain grammatical or spelling errors. Kindly contact undersigned for clarification of any documentation item in question. History of Present Illness Chief Complaint: trouble finding words Primary Care Provider: Sussy Zhu PA-C History obtained from patient, family, and records. Medical history significant for valvular heart disease, moderate MR, hypertension, hyperlipidemia, migraine, recurrent UTIs, past tobacco abuse. Last confinement November 2023 for encephalopathy attributed to UTI. 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 Compliant with home aspirin. Posterior headache Denies chest pain, SOB. Similar episode to October 2023 confinement. EMS called to patient's home. Stroke alert called upon arrival at the ER. Symptoms currently improving. Patient given Plavix at the ER as per [facility] telestroke recommendations. 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 Allergies Allergy/AdvReac Type Severity Reaction Status Date / Time sulfamethoxazole Allergy Severe Nausea Verified 04/17/24 21:44 [From Bactrim] trimethoprim [From Bactrim] Allergy Severe Nausea Verified 04/17/24 21:44 Penicillins Allergy Intermediate Rash Verified 04/17/24 21:44 nitrofurantoin AdvReac Mild Nausea Verified 04/17/24 21:44 [From Macrobid] Home Medications Medication Instructions Recorded Confirmed Type albuterol sulfate 90 mcg/actuation 2 puff inhalation QID PRN 06/27/18 04/18/24 History aerosol inhaler (ProAir HFA) Shortness Of Breath vitamins A,C,E-rjhe-ljuoye 2,148 1 tab PO BID 06/27/18 04/18/24 History mcg-113 mg-45 mg-17.4 mg tablet (PreserVision AREDS) cholecalciferol (vitamin D3) 25 25 mcg PO QAM 04/01/21 04/18/24 History mcg (1,000 unit) capsule (Vitamin D3) faricimab-svoa 6 mg/0.05 mL 6 mg intravitreal UD 10/03/23 04/18/24 History intravitreal solution (Vabysmo) aspirin 81 mg tablet,delayed 81 mg PO HS #30 tabs 11/13/23 04/18/24 Rx release metoprolol succinate 25 mg 25 mg PO BID #60 tabs 11/13/23 04/18/24 Rx tablet,extended release 24 hr d-mannose 500 mg capsule 500 mg PO BID 12/12/23 04/18/24 History rosuvastatin 40 mg tablet 40 mg PO QAM 12/12/23 04/18/24 History ondansetron HCl 4 mg tablet 4 mg PO Q6H PRN NAUSEA/VOMITING 12/14/23 04/18/24 Rx #10 tabs clopidogrel 75 mg tablet 75 mg PO QAM 30 days #30 tabs 04/18/24 04/18/24 Rx lisinopril 5 mg tablet 5 mg PO DAILY #30 tabs 04/18/24 04/18/24 Rx Past Med/Surg History Problem List (Updated 04/18/24 @ 20:32 by Kelley Godinez DO) Hypertension (Acute) Confusion (Acute) Carotid stenosis, left Stroke-like symptoms (Acute) Vaginal pessary in situ Acute metabolic encephalopathy Acute UTI (Acute) Encephalopathy (Acute) Brain TIA (Acute) COVID-19 (Acute) Hyperlipidemia (Chronic) Asthma (Chronic) Degenerative disc disease, cervical (Acute) Weakness (Acute) Surgical History No pertinent past surgical history Family History Mother Myocardial infarction Son Stroke Social History Smoking Status: Former smoker Tobacco Type: Cigarettes Second Hand Exposure: No; Do You Dip or Chew Tobacco: No; Hx Alcohol Use: No Hx Substance Use: No Preferred Language: Divehi Communication Ability: Effective Chair Finisher Required: No Beliefs That Will Affect Care: None marital status: Current Living Situation: Alone and Personal Care Facility Current Living Situation Comment: [facility] current occupational status: retired Other Information That Helps Us Care for You: No Feels Safe at Home: Yes Safety Concerns: Feels Safe At This Time Assistive Devices: Glasses Review of Systems Review of Systems: As per HPI, all other systems reviewed and negative Physical Exam Physical Exam: GENERAL: Comfortable, pleasant, looks younger for stated age, no respiratory distress SKIN: Normal color, warm HEENT: [place] palpebral conjunctivae, no ptosis, dry buccal mucosa NECK : Supple, no tenderness CHEST : Decreased breath sounds, no tenderness HEART : RRR, systolic murmur ABDOMEN: no distention, nontender EXTREMITIES : No LE swelling/tenderness, no other conspicuous deformities noted NEUROLOGIC : Coherent, no facial asymmetry, gait and stance not assessed Results & Data Results & Data Vital Signs (Past 12 Hours) Vital Signs Temp Pulse Pulse Resp BP BP Pulse Ox 04/17/24 20:29 87 155/78 H 04/17/24 20:21 96 H 16 160/82 H 96 04/17/24 20:16 97 H 04/17/24 20:12 93 H 19 177/94 H 96 04/17/24 20:11 97 H 177/94 H 04/17/24 20:08 106 H 24 95 04/17/24 20:08 95 04/17/24 19:37 36.8 C 96 H 16 197/92 H 97 O2 Del Method 04/17/24 20:29 04/17/24 20:21 04/17/24 20:16 04/17/24 20:12 Room Air 04/17/24 20:11 04/17/24 20:08 Room Air 04/17/24 20:08 Room Air 04/17/24 19:37 Room Air Laboratory Results Laboratory Results WBC 7.93 K/ul (4.8-10.8) 04/17/24 19:53 RBC 4.42 M/uL (4.20-5.40) 04/17/24 19:53 Hgb 13.1 g/dl (12.0-16.0) 04/17/24 19:53 POC Hgb 15.0 g/dl (12.0-16.0) 04/17/24 19:59 Hct 40.4 % (37.0-47.0) 04/17/24 19:53 POC Hct 44 % (37-47) 04/17/24 19:59 MCV 91.4 fL (80.0-100.0) 04/17/24 19:53 MCH 29.6 pg (25.0-34.0) 04/17/24 19:53 MCHC 32.4 g/dL (32.0-36.0) 04/17/24 19:53 RDW Std Deviation 51.5 fL (36.4-46.3) H 04/17/24 19:53 RDW Coeff of [place]rill 15.3 % (11.5-14.5) H 04/17/24 19:53 Plt Count 167 K/uL (130-400) 04/17/24 19:53 MPV 10.2 fL (9.4-12.4) 04/17/24 19:53 PT 11.2 Seconds (9.0-12.0) 04/17/24 19:53 INR 1.0 (0.9-1.1) 04/17/24 19:53 APTT 24 Seconds (21-31) 04/17/24 19:53 PTT Ratio 0.9 04/17/24 19:53 POC Sodium 139 mmol/L (135-144) 04/17/24 19:59 Sodium 136 mmol/L (136-145) 04/17/24 19:53 POC Potassium 3.9 mmol/L (3.3-5.0) 04/17/24 19:59 Potassium 3.8 mmol/L (3.5-5.1) 04/17/24 19:53 POC Chloride 103 mmol/L (101-112) 04/17/24 19:59 Chloride 103 mmol/L (98-107) 04/17/24 19:53 Carbon Dioxide 26 mmol/L (21-32) 04/17/24 19:53 POC Total CO2 26 mmol/L (24-31) 04/17/24 19:59 Anion Gap 7 (3-11) 04/17/24 19:53 POC Anion Gap 15.0 mmol/L (16-25) L 04/17/24 19:59 POC BUN 19 mg/dl (7-18) H 04/17/24 19:59 BUN 19 mg/dl (6-23) 04/17/24 19:53 Creatinine 0.72 mg/dl (0.6-1.2) 04/17/24 19:53 POC Creatinine 0.7 mg/dl (0.6-1.3) 04/17/24 19:59 Est Cr Clr Drug Dosing 43.9 ml/min 04/17/24 19:53 eGFR 82.39 04/17/24 19:53 BUN/Creatinine Ratio 26.4 (10-20) H 04/17/24 19:53 Glucose 92 mg/dl (70-99(Fasting)) 04/17/24 19:53 POC Glucose 88 mg/dl (70-99) 04/17/24 19:50 POC Glucose (other) 92 mg/dl (70-99) 04/17/24 19:59 Calcium 9.6 mg/dl (8.6-10.3) 04/17/24 19:53 POC Ioniz Calcium Mike 1.19 mmol/l (1.12-1.32) 04/17/24 19:59 Magnesium 1.9 mg/dl (1.7-2.4) 04/17/24 19:53 Total Bilirubin 0.6 mg/dl (0.2-1.0) 04/17/24 19:53 AST 39 U/L (13-39) 04/17/24 19:53 ALT 23 U/L (7-52) 04/17/24 19:53 Alkaline Phosphatase 73 U/L (34-104) 04/17/24 19:53 Troponin I High Sens 8.5 pg/ml (0-14) 04/17/24 19:53 Total Protein 8.4 gm/dl (6.0-8.3) H 04/17/24 19:53 Albumin 4.4 gm/dl (3.4-5.0) 04/17/24 19:53 Globulin 4.0 gm/dl (2.5-4.0) 04/17/24 19:53 Albumin/Globulin Ratio 1.1 (0.9-2) 04/17/24 19:53 Urine Color Yellow 04/17/24 20:20 Urine Appearance Clear (Clear) 04/17/24 20:20 Urine pH 6.5 (4.5-7.5) 04/17/24 20:20 Ur Specific [place] 1.033 (1.000-1.030) H 04/17/24 20:20 Urine Protein Negative (Negative) 04/17/24 20:20 Urine Glucose (UA) Negative (Negative) 04/17/24 20:20 Urine Ketones Negative (Negative) 04/17/24 20:20 Urine Blood Negative (Negative) 04/17/24 20:20 Urine Nitrite Negative (Negative) 04/17/24 20:20 Urine Bilirubin Negative (Negative) 04/17/24 20:20 Urine Urobilinogen Negative (Negative) 04/17/24 20:20 Ur Leukocyte Esterase Negative (Negative) 04/17/24 20:[address] 04/17/24 19:50 CR Exam(s): CT HEAD Without Contrast EXAM: CT Head Without Intravenous Contrast CLINICAL HISTORY: Reason for exam: Neuro deficit, acute, stroke suspected. TECHNIQUE: Axial computed tomography images of the head/brain without intravenous contrast. CTDI is 45.33 mGy and DLP is 1060.1 mGy-cm. Automated exposure control was utilized for the study. A dose lowering technique was utilized adhering to the principles of ALARA. COMPARISON: Head CT 04/17/24. FINDINGS: Brain: No mass effect or acute infarct. No acute hemorrhage. Mild atrophy and chronic white matter disease, stable. Ventricles: No hydrocephalus or midline shift. Bones/joints: No skull fracture. Soft tissues: No scalp hematoma. Visualized Sinuses: Clear. Mastoid air cells: No mastoid effusion. IMPRESSION: 1. Stable age-related findings. 2. No acute infarct, bleed, or acute intracranial abnormality. Communications: Call Doctor Stroke Electronically signed by: Jana Hand M.D. 04/17/24 20:18 PM Head CTA 04/17/24 19:50 CR Exam(s): CTA HEAD With Contrast IV Amt: 119ml optiray 320 EXAM: CT Angiography Head With Intravenous Contrast CLINICAL HISTORY: Reason for exam: stroke like symptoms. TECHNIQUE: Axial computed tomographic angiography images of the head with intravenous contrast. CTDI is 45.33 mGy and DLP is 1060.1 mGy-cm. Automated exposure control was utilized for the study. A dose lowering technique was utilized adhering to the principles of ALARA. MIP reconstructed images were created and reviewed. Mild motion and venous contamination limits detail. CONTRAST: Patient received 119ml optiray 320 of IV contrast COMPARISON: Head CT done earlier. FINDINGS: Right internal carotid artery: Patent. Right anterior cerebral artery: Patent. Right middle cerebral artery: Patent. Right posterior cerebral artery: Patent. Right vertebral artery: Patent. Left internal carotid artery: Patent. Left anterior cerebral artery: Patent. Left middle cerebral artery: Patent. Left posterior cerebral artery: Patent. Left vertebral artery: Patent. Basilar artery: Patent. Other: Mild atherosclerosis bilateral cavernous ICA, without significant stenosis. Patent dural venous sinuses. IMPRESSION: 1. No aneurysm or large vessel occlusion. Communications: Call Doctor Stroke Electronically signed by: Jana Hand M.D. 04/17/24 20:25 PM Neck CTA 04/17/24 19:50 CR Exam(s): CTA NECK With Contrast IV Amt: 119ml optiray 320 EXAM: CT Angiography Neck With Intravenous Contrast CLINICAL HISTORY: Reason for exam: stroke like symptoms. Word finding TECHNIQUE: Routine carotid CT angiography protocol was performed with intravenous contrast. NASCET criteria using the distal ICAs for comparison were used for evaluation of stenoses. CTDI is 45.33 mGy and DLP is 1060.1 mGy-cm. Automated exposure control was utilized for the study. A dose lowering technique was utilized adhering to the principles of ALARA. MIP reconstructed images were created and reviewed. CONTRAST: Patient received 119ml optiray 320 of IV contrast COMPARISON: None. FINDINGS: Right common carotid artery: Patent. Right internal carotid artery: Patent. Atherosclerosis with less than 50% stenosis. Right vertebral artery: Patent. Left common carotid artery: Patent. Left internal carotid artery: Patent. Moderate atherosclerosis of the bifurcation, results in moderate, 50-60% stenosis. Left vertebral artery: Patent. Codominant. Other: IMPRESSION: 1. Moderate, 50-60% LEFT ICA stenosis. No other dissection/occlusion/significant stenosis. CAROTID STENOSIS REFERENCE USING NASCET CRITERIA: % ICA stenosis = (1 - narrowest ICA diameter/diameter of distal cervical ICA) x 100. Mild - <50% stenosis. Moderate - 50-69% stenosis. Severe - 70-94% stenosis. Near occlusion - 95-99% stenosis. Occluded - 100% stenosis. Communications: Call Doctor Stroke Electronically signed by: Jana Hand M.D. 04/17/24 20:27 PM Diagnostic Findings EKG as per my interpretation : Rate 100, NSR, normal axis, T wave abnormalities septal leads
[2024-04-17] MEDS ORDERED: PHARMACIST DISCHARGE MED REC CONSULT PRN (22:56)
[2024-04-17] MEDS ORDERED: ACETAMINOPHEN 325 MG TAB PO PRN (22:57)
[2024-04-17] MEDS: ACETAMINOPHEN 325 MG TAB PO STA (23:45)
--- OUTSIDE RECORDS SUMMARY | 2024-04-18 02:09 | External Medical Summary | Summary of Care ---
Author Name Unknown Organization [facility] Address [address] [facility] [place] [address] Phone [phone] Care Team Providers Care Melting Operator Name Role Phone Sussy Zhu PERI Primary Care Provider [phone] Reason for Visit * Reason Comments Follow Up Encounter Details Date Type Department Care Team (Late st Contact Info) Description 04/13/2024 3:00 PM EDT Office Visit Ophthalmology, [facility] [address] [place] [address] Mina Christiansen, [address] [place] [address] Exudative age-related macular degeneration of right eye with active choroidal neovascularization (HCC)*; Intermediate stage 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 Active PreserVision AREDS 2+Multi Vit Oral Capsule 2 Tablets in the morning. Active Naproxen Sodium 220 MG Oral Tablet as needed. Active Rosuvastatin Calcium 40 MG Oral Tablet (Crestor) Take 1 Tablet by mouth in the morning. 100 Tablet 3 04/01/2023 Active Albuterol Sulfate HFA 108 (90 Base) [...] 136.607 g 3 11/24/2023 Active Losartan Potassium 100 MG Oral Tablet (Cozaar) Take 1 Tablet by mouth in the morning. 90 Tablet 3 12/17/2023 Active Hospital, Clinic, or Other Facility Administered Medication Ordered Dose Route Frequency Start Date End Date Status Faricimab-svoa (Vabysmo) intravitreal inj 6 mgIndications:Exudative age-related macular degeneration of right eye with active choroidal neovascularization (HCC) 6 mg IZ PRN 07/08/2023 07/07/2024 Active ROPivacaine (Naropin) inj 1.5 mgIndications:Exudative age-related macular degeneration of right eye with active choroidal neovascularization (HCC) 1.5 mg IJ PRN 02/29/2024 02/28/2025 Active documented as of this encounter (statuses as of 04/13/2024) Active Problems Problem Noted Date Diagnosed Date Bronchospasm, exercise-induced 11/17/2023 Spinal enthesopathy, cervical region 07/14/2023 Bilateral nonexudative age-related macular degen eration 05/19/2023 Degenerative disc disease, cervical 09/09/2022 Hyperlipidemia 09/09/2022 History of 2019 novel coronavirus disease (COVID -19) 06/10/2022 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 Increased risk for Familial hypercholesterolemia (FH). Please [...] as of this encounter (statuses as of 04/13/2024) Resolved Problems Problem Noted Date Diagnosed Date [...] as of this encounter (statuses as of 04/13/2024) Immunizations Name Administration Dates Next Due COVID-19 mRNA, LNP-s, No Pre serve, 2-Dose Series (SpinVox) 10/01/2021,04/07/2021,09/14/2020,07/30 COVID-19, LNP-s, No Preserve , Yimi-sucrose, Ages 12+ (Pfizer) 04/04/2022 H1N1 2009 Influenza, IM 07/27/2009 PPD 06/30/2013, 2,08/02/2009,06/28,06/30/2005,06/29/2003,07/11/19 02 07/11/2002 Pneumococcal Conjugate Vacc, 13 Valent (Prevnar) 05/21/2014 Pneumococcal Polysaccharide PPV23 (Pneumovax) 05/05/2006 RSV Vac., Bivalent, Perfusio n F, Pf,0.5 Ml (Abrysvo) 03/26/2023 Season Influenza, Quad, PF, Adjuvanted, 65+ Yrs, IM (FLUAD) 03/14/2020 Seasonal Influenza Vac., MDV , IM, 0.5 mL (Fluzone) 05/21/2014,03/11/2013,04/22/2012,03/28,03/28/2010,05/22/2009,05/02/20 08,04/04/2007,05/05/2006,04/11/2003,1 ,05/31/2001 Seasonal Influenza, PF, 6 M & above, IM , (FluLaval or Fluzone) 03/15/2018,04/05/2017 Seasonal Influenza, Quadriva lent Hd (Fluzone Hd) 03/24/2023,04/13/2022,03/11/2021 Seasonal Influenza, Quadriva lent, No Preserve, IM 04/14/2016,06/10/2015 Seasonal Influenza, Trivalen t, Adjuvanted, 65+ YRS, PF, (Fluad) 03/15/2019 TD - Tetanus/Diptheria (ADULT) 06/30/2005 TD, Preservative Free 06/30/2005 TDAP (age 10 and older)(Boostrix) 06/30/2013 Varicella Zoster Vaccine (Adult) 08/02/2009 Zoster Vaccine Recombinant (Shingrix) ,08/31/2019,08/24/2019,10/2009 documented as of this encounter Social History Tobacco Use Types Packs/Day Years Used Date Smoking Tobacco: Former Cigarettes 0.5 40 0 07/06/1973 - 07/06/2013 Smokeless Tobacco: Never Comments:1 pk per week Alcohol Use Standard Drinks/Week Comments Yes 0 (1 standard drink = 0.6 oz pur e alcohol) rare PHQ-2 Answer Date Recorded PHQ Adult Total Score 0 05/18/2022 Hunger Vital Sign Answer Date Recorded Within the past 12 months, y ou worried that your food would run out before you got the money to buy more. Never true 12/15/19 24 Within the past 12 months, t he food you bought just didn't last and you didn't have money to get more. Never true 12/15/2023 Childcare Answer Date Recorded Do you feel overwhelmed with taking care of a child, family member or friend? No 12/15/2023 Does your family need help f inding childcare? (Household - for ages 0-17 years) Not on file 12/15/2023 Clothing Answer Date Recorded Have you been unable to get clothing when it was really needed? No 12/15/2023 Is your family able to get c lothes or diapers when needed? (Household - for ages 0-17 years) Not on file 12/15/2023 Personal Safety Answer Date Recorded Do you feel unsafe or have concerns for your saf ety? No 12/15/2023 Do you have concerns for you r family's safety? (Household - for ages 0-17 years) Not on file 12/15/2023 Utilities Answer Date Recorded Do you have trouble paying y our heating, water, or electric bill? No 12/15/2023 Is your family able to pay t he heat, water, or electric bill? (Household - for ages 0-17 years) Not on file 12/15/2023 Does your family have access to good internet? (Household - for ages 0-17 years) Not on file 12/15/2023 Employment Status Answer Date Recorded Are you unemployed or without regular income? No 12/15/2023 Does the household have a re gular source of income? (Household - for ages 0-17 years) Not on file 12/15/2023 Social Connections Answer Date Recorded How often do you feel lonely or isolated from th ose around you? Never 12/15/2023 Financial Resource Strain Answer Date R ecorded Do you have any trouble payi ng for your medications, or do you think you might in the future? No 12/15/2023 Does your family have troubl e paying for medicine? (Household - for ages 0-17 years) Not on file 12/15/2023 Transportation Needs Answer Date Record ed Do you have trouble getting a ride to medical visits or work? (Adult - for ages 18 years and over) Not on file 12/15/2023 Does your family have a hard time getting a ride to doctors visits? (Household - for ages 0-17 years) Not on file 12/15/2023 Has lack of transportation k ept you from medical appointments, meetings, work, or from getting things needed for daily living? Check all that apply. No 12/15/2023 Do you (or your family) have trouble finding or paying for a ride (transportation)? (Household - for ages 0-17 years) Not on file 12/15/2023 Housing Stability Answer Date Recorded Do you currently live in a s helter or have no steady place to sleep at night? No 12/15/2023 Do you think you are at risk of becoming homeless? (Adult - for ages 18 years and over) Not on file 12/15/2023 Does your family worry about paying for your home or becoming homeless? (Household - for ages 0-17 years) Not on file 0 12/15/2023 Are you homeless or worried that you might be in the future? No 12/15/2023 Are you (or your family) sintia eless or worried that you might be in the future? (Household - for ages 0-17 years) Not on file Food Insecurity Answer Date Recorded Do you need food for this week? No 12/15/2023 Are you able to get enough f ood for your family? (Household - for ages 0-17 years) Not on file 12/15/2023 Does your family need food t his week? (Household - for ages 0-17 years) Not on file 12/15/2023 Do you always have enough fo od for your family? (Household - for ages 0-17 years) Not on file 12/15/2023 Sex and Gender Information Value Date Recorded Sex Assigned at Not on file Gender Identity Not on file Sexual Orientation Not on file Job Start Date Occupation Industry Not on file Not on file Not on file documented as of this encounter Progress Notes * Mina Christiansen, DO - 04/13/2024 3:00 PM EDT [facility] [place] Nursing Notes: Gisella Hope RN 04/13/24 1507 Signed Rachel Garcia is a 83 year old year old female who presents for AMD OU. Last Office Visit: 02/29/2024 (in office), Visit date not found (telemedicine) Patient currently states no change in vision. Are you diabetic? No Do you drive? yes OCT image(s) of both eyes acquired and filed/scanned into chart. Base Eye Exam Visual Acuity (Snellen - Linear) Right Left Dist sc 20/50 -1 20/60 -2 Dist ph sc NI NI Tonometry (3:05 PM) Right Left Pressure 14 13 Pupils Pupils APD Right PERRL None Left PERRL None Visual Ramirez (Counting fingers) Right Left Full Full Extraocular Movement Right Left Full, Ortho Full, Ortho Neuro/Psych Oriented x3: Yes Mood/Affect: Normal Dilation Both eyes: 0.5% Proparacaine @ 3:05 PM Dilation #2 Both eyes: 1.0% Mydriacyl, 2.5% Phenylephrine @ 3:05 PM Dilation #3 Both eyes: 1.0% Mydriacyl, 2.5% Phenylephrine @ 3:07 PM EXTERNAL: The ocular adnexae are unremarkable. SLE: [...] prior STABLE, prior STABLE, prior STABLE, prior STABLE, [...] 22um prior worse, prior improved 29um, prior optxx52ic, prior STABLE, prior no sig change, prior improved, prior worse, prior STABLE, prior STABLE, prior trace worse, prior improved OS: scattered drusen; no SRFluid/CME, +pvd - STABLE, prior STABLE, prior stable A/P: 1. 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 -s/p Avastin x 3 (last 06/08/08) -s/p focal laser OD to area of leakage as guided by FA (07/06/08) - s/p Avastin (04-27-19, 19, 01-19-, 11-24-, 10-04-18, 08-23-18, 07-19-18, 06-09-18) - worse on Avastin and new heme on exam - switched to Eylea (04/30/23, 03/29/23, 02/23/23, 01/21/23, 12/15/22, 10/06/22, 07/28/22, 06/02/22, 04/15/22, 03/10/22, 01/28/22, 12/24/21, 10/15/21, 08/07/21, 07/07/21, 06/09/21, 04-28-21, 03/19/21, 02-18-21, 12-11-21, 10-22-21, 09-04-21, 07-17-21, 06-05-20, 04-30-20, 03-26-20, 02-07-20, 01-02-20, 11-20-20, 10-09-20, 08-28-20, 07-19-20, 06-14-19) - worse at 9 and 10 weeks missed appoint due to travel; better at 6-8 weeks - had heme at 9 weeks -3 weeks since injection - worsening heme and metamorphopsia on Eylea- switched to Vabysmo - Vabysmo 02/29/24, 01/19/24, 11/30/23, 10/21/23, 09/23/23, 08/19/23, 07/08/23 -6 weeks, good at 8 weeks OS: dry -monitor -An examination for [...] documented in this encounter Nursing Notes * Gisella Hope RN - 04/13/2024 3:24 PM EDT Rachel Garcia to receive eighth Vabysmo 6mg Injection of the Right eye. Correct eye confirmed with patient and marked by Mina Christiansen DO Vabysmo 6mg lot # [id number] Exp. Date: 02/2025 * Gisella Hope RN - 04/13/2024 2:58 PM EDT Rachel Garcia is a 83 year old year old female who presents for AMD OU. Last Office Visit: 02/29/2024 (in office), Visit date not found (telemedicine) Patient currently states no change in vision. Are you diabetic? No Do you drive? yes OCT image(s) of both eyes acquired and filed/scanned into chart. documented in this encounter Plan of Treatment Upcoming Encounters Date Type Department Care Team (Late st Contact Info) Description 04/26/2024 1:20 PM EDT Office Visit Podiatry [facility] [address] [facility] [place] [id number] Rosalind Woodward DPM [address] [place] [address] [place] [id number] 05/23/2024 2:40 PM EST Office Visit Family [facility] [address] [place] [address] Sussy Zhu PA-C [address] [place] [address] 06/16/2024 3:00 PM EST Office Visit Gynecology/Obstetrics Alix Veliz [address] [place] [address] Ny Mccracken CRNP [address] [place] [address] Scheduled Orders Name Type Priority Associated Diagnoses Orde r Schedule RETINA SCAN DIAGNOSTIC IMAGE, POSTERIOR Procedures Routine 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 Ordered: 04/13/2024 Health Maintenance Due Date Last Done Comments Adult Wellness Visit 12/24/2005 DXA Scan 04/30/2016 04/30/2014, 03/29, 04/18/2012, Additional history exists DTap/Tdap Vaccines (2 - Td or Tdap) 06/30/2023 06/30/2013, 06/30/2005, 06/30/2005 COVID-19 Vaccine ( season) 2024 04/04/2022, 10/01/2021, 04/07/2021, Additional history exists Influenza Vaccine (FLU shot) (#1) 2024 03/24/2023, 04/13/2022, 03/11/2021, Additional history exists Albumin/Creatinine Ratio 09/11/2024 09/11/2021 Depression Screening 12/14/2024 12/15/2023, 06/29/2017 (Discussed) GFR 02/13/2025 02/14/2024, 08/2022, 09/17/2022, Additional history exists VITAMIN D LEVEL ONCE IN A LIFETIME-USE SMARTSET# 60333 Completed 03/15/2006 Pneumococcal Vaccine: 65+ Years Completed 05/21/2014, 05/05/2006 *BISPHONATE OR OTHER ACCEPTABLE MEDICATION NEEDED FOR OSTEOPOROSIS (REFER TO SMARTSET #7285) Addressed 06/29/2017 (Refused) Overridden wi th the intention of not completing the topic Zoster Vaccines Completed 02/15/2020, 10/2019, 08/24/2019, Additional history exists HPV (Gardasil) Vaccine Aged Out No lo nger eligible based on patient's age to complete this topic Hepatitis B Vaccine Aged Out No longe r eligible based on patient's age to complete this topic MENINGOCOCCAL (MENACTRA/MENVEO) Aged Out No longer eligible based on patient's age to complete this topic documented as of this encounter Medical Devices Implanted Type Area Hearing Care Practitioner Device Identifier Shelf Expiration Date Model / Serial / Lot Lens 23.5 M160l - [id number] - [id number] Implanted:Qty: 1 on 10/03/2015 by Arnol Auguste MD at [facility] Left: Eye [employer] : SURGICAL 11/25/2016 [id number] / [id number] / [id number] Lens Intraoc 23.0 - [id number] - [id number] Implanted:Qty: 1 on 06/04/2016 by Flakito Sorto MD at OR [facility] Right: Eye [employer]OMB 11/25/2020 [id number] / [id number] / documented as of this encounter Visit [...] the treatment of a single eye. Given 04/13/2024 3:26 PM EDT 6 mg Eye Right Given 02/29/2024 1:04 PM EDT 6 mg Ey e Right Given 01/04/2024 1:35 PM EDT 6 mg Ey e Right ROPivacaine (Naropin) inj 1.5 mg 1.5 mg, Injection, PRN Pain, Mild, Starting on Tu02/29/24 at 1216, Until Wed02/28/25 at 1215, For 365 days Given 04/13/2024 3:25 PM EDT 1.5 mg Eye Right Given 02/29/2024 1:04 PM EDT 1.5 mg Ey e Right [...] patients wishes and were consensually agreed upon. Healthcare Agents on File Name Relationship Healthcare Agent [facility] p Communication Juan Garcia Adult Child Health Care Agen t (per Health Care Power of Configuration Management Architect document) Care Teams Melting Operator Relationship Specialty Start Date End Date MarkoSeptember PERI Sheldon [address] [facility] [place] [address] PCP - General Physician Track Production Engineer 01/10/24 documented as of this encounter
--- OUTSIDE RECORDS SUMMARY | 2024-04-18 02:09 | External Medical Summary | Summary of Care ---
Author Name Unknown Organization [facility] Address [address] [facility] [place] [address] Phone [phone] Care Team Providers Care Life Enrichment Manager Name Role Phone Sussy Zhu PERI Primary Care Provider [phone] Reason for Visit * Reason Comments Follow Up Encounter Details Date Type Department Care Team (Late st Contact Info) Description 04/13/2024 3:00 PM EDT Office Visit Ophthalmology, [facility] [address] [place] [address] Mina Christiansen, [address] [place] [address] Exudative age-related macular degeneration of right eye [...] mRNA, LNP-s, No Pre serve, 2-Dose Series ([employer]) 10/01/2021,04/07/2021,09/14/2020,07/30 COVID-19, LNP-s, No Preserve , Yimi-sucrose, [...] - 04/13/2024 3:00 PM EDT [facility] [place] Nursing Notes: Gisella [...] 22um prior worse, prior improved 29um, prior [id number], prior STABLE, prior no sig change, prior [...] Mina Christiansen DO Vabysmo 6mg lot # [id number] Exp. Date: 02/2025 * Gisella Hope RN [...] 04/26/2024 1:20 PM EDT Office Visit Podiatry [facility] [address] [facility] [place] [phone] Rosalind Woodward DPM [address] [place] [address] [place] [phone] 05/23/2024 2:40 PM EST Office [facility] [address] [place] [address] Sussy Zhu PA-C [address] [place] [address] 06/16/2024 3:00 PM EST Office Visit Gynecology/Obstetrics Alix Veliz [address] [place] [address] Ny Mccracken CRNP [address] [place] [address] Scheduled Orders Name Type Priority Associated Diagnoses [...] D LEVEL ONCE IN A LIFETIME-USE SMARTSET# 35046 Completed 03/15/2006 Pneumococcal Vaccine: 65+ Years Completed 05/21/2014, 05/05/2006 *BISPHONATE OR OTHER ACCEPTABLE MEDICATION NEEDED FOR OSTEOPOROSIS (REFER TO SMARTSET #5816) Addressed 06/29/2017 (Refused) Overridden wi th the [...] this encounter Medical Devices Implanted Type Area Coal Crusher Operator Device Identifier Shelf Expiration Date Model / Serial / Lot Lens 23.5 M160l - [id number] - [id number] Implanted:Qty: 1 on 10/03/2015 by Arnol Auguste MD at OR [facility] Left: Eye [employer] LOM[employer] : SURGICAL 11/25/2016 [id number] / [id number] / [id number] Lens Intraoc 23.0 - [id number] - [id number] Implanted:Qty: 1 on 06/04/2016 by Flakito Sorto MD at OR [facility] Right: Eye [employer] 11/25/2020 [id number] / [id number] / documented as of this encounter Visit [...] Agents on File Name Relationship Healthcare Agent [facility] p Communication Juan Garcia Adult Child Health Care Agen t (per Health Care Power of Computer Security Coordinator document) Care Teams Life Enrichment Manager Relationship Specialty Start Date End Date MarkoSeptember PERI Sheldon [address] [facility] [place] [address] PCP - General Physician Textile Broker 01/10/24 documented as of this encounter
--- OUTSIDE RECORDS SUMMARY | 2024-04-18 02:09 | External Medical Summary | Summary of Care ---
Author Name Unknown Organization [facility] Address [address] [facility] [place] [address] Phone [phone] Care Team Providers Care Air Traffic Controller Center Name Role Phone Sussy Zhu PERI Primary Care Provider [phone] Reason for Visit * Reason Comments Follow Up Encounter Details Date Type Department Care Team (Late st Contact Info) Description 04/13/2024 3:00 PM EDT Office Visit Ophthalmology, [facility] [address] [place] [address] Mina Christiansen, [address] [place] [address] Exudative age-related macular degeneration of right eye [...] mRNA, LNP-s, No Pre serve, 2-Dose Series ([employer]) 10/01/2021,04/07/2021,09/14/2020,07/30 COVID-19, LNP-s, No Preserve , Yimi-sucrose, [...] - 04/13/2024 3:00 PM EDT [facility] [place] Nursing Notes: Gisella [...] 22um prior worse, prior improved 29um, prior [id number], prior STABLE, prior no sig change, prior [...] Mina Christiansen DO Vabysmo 6mg lot # [id number] Exp. Date: 02/2025 * Gisella Hope RN [...] 04/26/2024 1:20 PM EDT Office Visit Podiatry [facility] [address] [facility] [place] [phone] Rosalind Woodward DPM [address] [place] [address] [place] [phone] 05/23/2024 2:40 PM EST Office [facility] [address] [place] [address] Sussy Zhu PA-C [address] [place] [address] 06/16/2024 3:00 PM EST Office Visit Gynecology/Obstetrics Alix Veliz [address] [place] [address] Ny Mccracken CRNP [address] [place] [address] Scheduled Orders Name Type Priority Associated Diagnoses [...] D LEVEL ONCE IN A LIFETIME-USE SMARTSET# 76196 Completed 03/15/2006 Pneumococcal Vaccine: 65+ Years Completed 05/21/2014, 05/05/2006 *BISPHONATE OR OTHER ACCEPTABLE MEDICATION NEEDED FOR OSTEOPOROSIS (REFER TO SMARTSET #7635) Addressed 06/29/2017 (Refused) Overridden wi th the [...] this encounter Medical Devices Implanted Type Area Automation Test Developer Device Identifier Shelf Expiration Date Model / Serial / Lot Lens 23.5 M160l - [id number] - [id number] Implanted:Qty: 1 on 10/03/2015 by Arnol Auguste MD at OR [facility] Left: Eye [employer]OM[employer] : SURGICAL 11/25/2016 [id number]-95.5 / [id number] / [id number] Lens Intraoc 23.0 - [id number] - [id number] Implanted:Qty: 1 on 06/04/2016 by Flakito Sorto MD at OR [facility] Right: Eye [employer] LOMB 11/25/2020 [id number] / [id number] / documented as of this encounter Visit [...] Agen t (per Health Care Power of Copyholder document) Care Teams Air Traffic Controller Center Relationship Specialty Start Date End Date MarkoSeptember PERI Sheldon [address] [facility] [place] [address] PCP - General Physician Candy Packer 01/10/24 documented as of this encounter
--- OUTSIDE RECORDS SUMMARY | 2024-04-18 02:10 | External Medical Summary | Summary of Care ---
Author Name Unknown Organization [facility] Address [address] [facility] [place] [address] Phone [phone] Care Team Providers Care Corn Cooker Name Role Phone Sussy Zhu PERI Primary Care Provider [phone] Reason for Visit * Reason Comments Pessary Check Encounter Details Date Type Department Care Team (Late st Contact Info) Description 03/16/2024 11:30 AM EDT Office Visit Gynecology/Obstetric s Alix Veliz [address] [place] [address] Ny Mccracken CRNP [address] [place] [address] Pessary maintenance* Allergies Active Allergy Reactions Criticality Noted Date Comments Sulfamethoxazole-Trimethopri m 01/03/2020 nausea Penicillins 03/23/2000 rash Trimethoprim High 04/01/2021 Other reaction(s): Nausea documented as of this encounter (statuses as of 03/16/2024) Medications Medication Sig Dispensed Refills Start Date [...] as of this encounter (statuses as of 03/16/2024) Active Problems Problem Noted Date Diagnosed Date Bronchospasm, exercise-induced 11/17/2023 Spinal enthesopathy, cervical region 07/14/2023 Bilateral nonexudative age-related macular degen eration 05/19/2023 Degenerative disc disease, cervical 09/09/2022 Hyperlipidemia 09/09/2022 History of 2019 novel coronavirus disease (COVID -19) 06/10/2022 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 Increased risk for Familial hypercholesterolemia (FH). Please [...] as of this encounter (statuses as of 03/16/2024) Resolved Problems Problem Noted Date Diagnosed Date [...] as of this encounter (statuses as of 03/16/2024) Immunizations Name Administration Dates Next Due COVID-19 [...] Preserve, IM 04/14/2016,06/10/2015 Seasonal Influenza, Trivalen t, (IIV3), with Preserv, (Fluzone) 05/21/2014,03/11/2013,04/22/2012,04/11,03/28/2010,05/22/2009,05/02/2008 ,04/04/2007,05/05/2006 Seasonal Influenza, Trivalen t, Adjuvanted, 65+ YRS, PF, (Fluad) 03/15/2019 TD - Tetanus/Diptheria (ADULT) 06/30/2005 TDAP [...] Sign Reading Time Taken Comments Blood Pressure 152/80 03/16/2024 10:58 AM EDT Pulse - - Temperature - - Respiratory Rate - - Oxygen Saturation - - Inhaled Oxygen Concentration - - Weight 51.3 kg (113 lb) 03/16/2024 10:58 AM EDT Height 160 cm (5' 2.99") 03/16/2024 10:58 AM EDT Body Mass Index 20.02 03/16/2024 10:58 AM EDT documented in this encounter Progress Notes * Ny Mccracken CRNP - 03/16/2024 11:07 AM EDT CC: Here for pessary check HPI: Pt is a 83 year old female who presents for pessary check. Complaints: No vaginal bleeding. No changes in urinary incontinence. She is using vaginal estrogen. Was changed to #3 ring with support when seen by urogyn, states this pessary is working well. Past Medical History: Diagnosis Date Allergic rhinitis [...] Regular astigmatism, bilateral 08/12/2015 Tobacco use disorder Past Surgical History: Procedure Laterality Date DEXA SCAN/BONE MINERAL AXIAL 01/2006 osteoporosis repeat on medication in 2007 EXERCISE ECHO 06/2004 normal, Dr Ramirez, [facility] INCISIONAL BIOPSY OF SKIN; SINGLE LESION 04/2020 [...] DRUG Right 08/23/2018 #6 Avastin OD, Dr. Christiansen INJECTION OF EYE DRUG Right 10/04/2018 # [...] EYE DRUG Right 06/02/2022 #27 EYLEA OD ANNE INJECTION OF EYE DRUG Right 07/28/2022 #28 Eylea OD Anne INJECTION OF EYE DRUG Right 10/06/2022 #19 [...] 10/21/2023 # 4 Vabysmo OD, Dr. Christiansen INJECTION OF EYE DRUG Right 11/30/2023 #5 Vabysmo OD, Dr. Christiansen INJECTION OF EYE DRUG Right 01/04/2024 #6 Vabysmo OD; Dr Christiansen INJECTION OF EYE DRUG Right 02/29/2024 # 7 Vabysmo, Dr. Christiansen LASER TRABECULOPLASTY 07/06/2008 Focal/Grid laser [...] performed by Arnol Auguste MD at OR [facility] REMOVE CATARACT, INSERT LENS PROSTH Right 06/04/2016 right EXTRACAPSULAR CATARACT REMOVAL WITH INTRAOCULAR LENS performed by Flakito Sorto MD at OR [facility] REMOVE TONSILS & ADENOIDS, UNDER 12 Tonsillectomy/Adenoids,<12 Y/O VAGINAL DELIVERY ONLY times 4 Current medication list reviewed. EXAM: General: alert, healthy, and no distress Head: Normocephalic Neuro Exam: alert & oriented x 3 with fluent speech, no focal motor/sensory deficits, gait normal Pelvic Exam: External genitalia and vagina anatomy within normal limits, No significant vulvar lesions, No significant vaginal discharge, Cervix normal in appearance without lesions or purulent discharge, Uterus is normal size, shape, and consistency Pessary cleaned and replaced. Mentally Impaired Teacher Documentation Provider requested chicken and fish butcher. Name of chicken and fish butcher: Mari A/P: Pessary maintenance (Primary) Follow Up: Return in about 3 months (around 06/15/2024) for pessary. | For: pessary MACIE Vargas documented in this encounter Nursing Notes * Mari Chandler LPN - 03/16/2024 11:02 AM EDT Pessary check, was changed to [address] torrez. Feels better than it ever has. documented in this encounter Plan of Treatment Upcoming Encounters Date Type Department Care Team (Late st Contact Info) Description 03/16/2024 3:45 PM EDT Office Visit Dermatology [facility] [address] [place] [address] Qian Dorman MD [address] [place] [address] 04/13/2024 3:00 PM EDT Office Visit Ophthalmology, [facility] [address] [place] [address] Mina Christiansen DO [address] [place] [address] 05/23/2024 2:40 PM EST Office Visit Family Practice [address] [place] [address] [facility] [address] [place], [place] [address] Sussy Zhu PA-C [address] [place] [address] 06/16/2024 3:00 PM EST Office Visit Gynecology/Obstetrics Alix Veliz [address] [place] [address] Ny Mccracken CRNP [address] [place] [address] Health Maintenance Due Date Last Done Comments [...] D LEVEL ONCE IN A LIFETIME-USE SMARTSET# 55688 Completed 03/15/2006 Pneumococcal Vaccine: 65+ Years Completed 05/21/2014, 05/05/2006 *BISPHONATE OR OTHER ACCEPTABLE MEDICATION NEEDED FOR OSTEOPOROSIS (REFER TO SMARTSET #3537) Addressed 06/29/2017 (Refused) Overridden wi th the [...] this encounter Medical Devices Implanted Type Area Bookmaker'S Clerk Device Identifier Shelf Expiration Date Model / Serial / Lot Lens 23.5 M160l - [id number] - [id number] Implanted:Qty: 1 on 10/03/2015 by Arnol Auguste MD at OR [facility] Left: Eye BAUSCH [employer] LOMB : SURGICAL 11/25/2016 [id number] / [id number] / [id number] Lens Intraoc 23.0 - [id number] - [id number] Implanted:Qty: 1 on 06/04/2016 by Flakito Sorto MD at OR [facility] Right: Eye BAUSCH & LOMB 11/25/2020 [id number] / [id number] / documented as of this encounter Visit Diagnoses Diagnosis Pessary maintenance- Primary Fitting and adjustment of other device documented in this encounter Advance Directives * [...] Agents on File Name Relationship [facility] Juan Garcia Adult Child Health Care Agen t (per Health Care Power of Compound Finisher document) Care Teams Corn Cooker Relationship Specialty Start Date End Date Sussy Zhu PA-C [facility] [address] [place] [address] PCP - General Physician Painting Supervisor 01/10/24 documented as of this encounter
--- OUTSIDE RECORDS SUMMARY | 2024-04-18 02:10 | External Medical Summary | Summary of Care ---
Author Name Unknown Organization [facility] Address [address] [facility] [place] [address] Phone [phone] Care Team Providers Care Tool Grinder Operator Surface Name Role Phone KaminiSussy juárez Pito WHITT Primary Care Provider [phone] Reason for Visit * Reason Onset Date Comments Home Health 12/20/2023 Encounter Details Date Type Department Care Team (Late st Contact Info) Description 12/20/2023 Telephone Family Practice [facility] [address] [facility] [place] [address] Seun Riddle, [address] [facility] [place] [address] Home Health Allergies Active Allergy Reactions Criticality Noted Date Comments Sulfamethoxazole-Trimethopri m 01/03/2020 nausea Penicillins 03/23/2000 rash Trimethoprim High 04/01/2021 Other reaction(s): Nausea documented as of this encounter (statuses as of 03/20/2024) Medications Medication Sig Dispensed Refills Start Date [...] HFA 108 (90 Base) MCG/ACT Inhalation Aerosol SolutionIndicat ions:Bronchospa sm, exercise-induce d INHALE 2 PUFFS BY MOUTH FOUR TIMES [...] the morning. 90 Tablet 3 12/17/2023 Active Ondansetron HCl 4 MG Oral TabletIndicatio ns:Nausea without vomiting Take 1 Tablet by mouth every 6 hours as needed for Nausea. 30 Tablet 5 07/21/2023 4 Discontinued([facility]) Nitrofurantoin Monohyd Macro 100 MG Oral Capsule (Macrobid) Take 1 Capsule by mouth in the morning and 1 Capsule before bedtime. For 10 days. 4 Discontinued Hospital, Clinic, or Other Facility Administered Medication Ordered Dose Route Frequency Start Date End Date Status Faricimab-svoa (Vabysmo) intravitreal inj 6 mgIndications:Exudative age-related macular degeneration of right eye with active choroidal neovascularization (HCC) 6 mg IZ PRN 07/08/2023 07/07/2024 Active Aflibercept (Eylea) intraviteal prefilled syringe 2 mgIndications:Exudative age-related macular degeneration of right eye with active choroidal neovascularization (HCC) 2 mg IZ PRN 01/21/2023 01/21/2024 Ended ROPivacaine (Naropin) inj 1.5 mgIndications:Exudative age-related macular degeneration of right eye with active choroidal neovascularization (HCC) 1.5 mg IJ PRN 01/21/2023 01/21/2024 Ended documented as of this encounter (statuses as of 03/20/2024) Active Problems Problem Noted Date Diagnosed Date Bronchospasm, exercise-induced 11/17/2023 Spinal enthesopathy, cervical region 07/14/2023 Bilateral nonexudative age-related macular degen eration 05/19/2023 Degenerative disc disease, cervical 09/09/2022 Hyperlipidemia 09/09/2022 History of 2019 novel coronavirus disease (COVID -19) 06/10/2022 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 Increased risk for Familial hypercholesterolemia (FH). Please [...] as of this encounter (statuses as of 03/20/2024) Resolved Problems Problem Noted Date Diagnosed Date [...] as of this encounter (statuses as of 03/20/2024) Immunizations Name Administration Dates Next Due COVID-19 mRNA, LNP-s, No Pre serve, 2-Dose Series ([employer]) 10/01/2021,04/07/2021,09/14/2020,08/24 COVID-19, LNP-s, No Preserve , Yimi-sucrose, [...] 12/15/2023 Does the household have a re lar source of income? (Household - for ages [...] encounter Miscellaneous Notes * Telephone Encounter - Jennifer Sandy LPN - 12/20/2023 11:47 AM EDT PT/OT/ST Eval Start of Care/Continuation Andrea PT, Calling from: [facility] PT Plan of care: one times per week for 4 weeks: Focusing on: strengthening, endurance, Concerns: yes BP Symptoms: Occasional headache, nausea Vitals: T 98.0 P 76 RR 18 BP 152/74 SP O2 95 Lung sounds clear Weight n/a Blood sugar n/a Narrative: Andrea calling from [facility], PT. Patients blood pressure is 152/74. No symptoms today. No headache or dizziness. When Andrea saw her last 122/70, and the week before that 124/64 Does have an occasional headache. Patient did take her medications this morning including the losartan about 9. Then [facility] took the blood pressure about 11 a.m. Received an automatic BP cuff with a transmitter from [facility]. It is a remote monitor. Doesn't know where it came from. Is this a [employer] ([employer] monitor? Asking where the monitor is transmitting? Thereis a number from [facility] and it is [phone] Called and checked with [facility]. [facility] case reviewer had it placed. Will go to her [facility] doctor.Patient made aware. Call back Andrea with any advice or orders at [phone] Please fax new orders to [facility] Advised that additional visit orders will be signed by Dr. Riddle and to fax to the office for signature documented in this encounter Plan of Treatment Upcoming Encounters Date Type Department Care Team (Late st Contact Info) Description 04/13/2024 3:00 PM EDT Office Visit Ophthalmology, [facility] [address] [place] [address] Mina Christiansen DO [address] [place] [address] 05/23/2024 2:40 PM EST Office Visit Family Practice [facility] [address] [facility] [place] [address] Sussy Zhu PA-C [address] [facility] [place] [address] 06/16/2024 3:00 PM EST Office Visit Gynecology/Obstetrics [facility] [address] [place] [address] Ny Mccracken CRNP [address] [place] [address] Health Maintenance Due Date Last Done Comments [...] 12/14/2024 12/15/2023, 06/29/2017 (Discussed) GFR 02/13/2025 02/14/2024, 100 08/2022, 09/17/2022, Additional history exists VITAMIN D LEVEL ONCE IN A LIFETIME-USE SMARTSET# [id number] Completed 03/15/2006 Pneumococcal Vaccine: 65+ Years Completed [...] this encounter Medical Devices Implanted Type Area Physician Practice Consultant Device Identifier Shelf Expiration Date Model / Serial / Lot Lens 23.5 M160l - [id number] - [id number] Implanted:Qty: 1 on 10/03/2015 by Arnol Auguste MD at OR [facility] Left: Eye BAUSCH [employer] LOMB : SURGICAL 11/25/2016 [id number]-08.5 / [id number] / [id number] Lens Intraoc 23.0 - [id number] - [id number] Implanted:Qty: 1 on 06/04/2016 by Flakito Sorto MD at OR [facility] Right: Eye BAUSCH [employer] LOMB 11/25/2020 [id number] / [id number] / documented as of this encounter Advance [...] Agents on File Name Relationship Healthcare Agent Relationshi p Communication Juan Garcia Adult Child Health Care Agen mariia (per Health Care Power of Etl Database Developer document) Care Teams Tool Grinder Operator Surface Relationship Specialty Start Date End Date MarkoSeptember ARIES SheldonC [address] [place] [address] PCP - General Physician Manager Supplier 01/10/24 documented as of this encounter
--- OUTSIDE RECORDS SUMMARY | 2024-04-18 02:10 | External Medical Summary | Summary of Care ---
Author Name Unknown Organization [facility] Address [address] [facility] [place] [address] Phone [phone] Care Team Providers Care Surveillance Systems Analyst Name Role Phone KaminiSussy juárez PERI Primary Care Provider [phone] Reason for Visit * Reason Onset Date Comments Encounter Created in Error 12/09/2023 Encounter Details Date Type Department Care Team (Late st Contact Info) Description 12/09/2023 Telephone Family Practice [facility] [address] [facility] [place] [address] Seun Riddle, 200 [place] [address] Encounter Created in Error Allergies Active Allergy Reactions Criticality Noted Date Comments Sulfamethoxazole-Trimethopri m 01/03/2020 nausea Penicillins 03/23/2000 rash Trimethoprim High 04/01/2021 Other reaction(s): Nausea documented as of this encounter (statuses as of 03/09/2024) Medications Medication Sig Dispensed Refills Start Date [...] as of this encounter (statuses as of 03/09/2024) Active Problems Problem Noted Date Diagnosed Date Bronchospasm, exercise-induced 11/17/2023 Spinal enthesopathy, cervical region 07/14/2023 Bilateral nonexudative age-related macular degen eration 05/19/2023 Degenerative disc disease, cervical 09/09/2022 Hyperlipidemia 09/09/2022 History of 2019 novel coronavirus disease (COVID -19) 06/10/2022 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 Increased risk for Familial hypercholesterolemia (FH). Please [...] as of this encounter (statuses as of 03/09/2024) Resolved Problems Problem Noted Date Diagnosed Date [...] as of this encounter (statuses as of 03/09/2024) Immunizations Name Administration Dates Next Due COVID-19 mRNA, LNP-s, No Pre serve, 2-Dose Series ([employer]) 10/01/2021,04/07/2021,09/14/2020,08/24 COVID-19, LNP-s, No Preserve , Yimi-sucrose, [...] encounter Miscellaneous Notes * Telephone Encounter - Evelyn Curran OSA - 12/09/2023 9:33 AM EDT error documented in this encounter Plan of Treatment Upcoming Encounters Date Type Department Care Team (Late st Contact Info) Description 03/16/2024 11:30 AM EDT Office Visit Gynecology/Obstetrics [facility] [address] [place] [address] Ny Mccracken CRNP [address] [place] [address] 03/16/2024 3:45 PM EDT Office Visit Dermatology [facility] [address] [facility] [place] [address] Qian Dorman MD [address] [facility] [place] [address] 04/13/2024 3:00 PM EDT Office Visit Ophthalmology, [facility] [address] [place] [address] Mina Christiansen DO [address] [place] [address] 05/23/2024 2:40 PM EST Office Visit Family Practice [facility] [address] [facility] [place] [address] Sussy Zhu PA-C [address] [facility] [place] [address] Health Maintenance Due Date Last Done Comments [...] D LEVEL ONCE IN A LIFETIME-USE SMARTSET# 54402 Completed 03/15/2006 Pneumococcal Vaccine: 65+ Years Completed 05/21/2014, 05/05/2006 *BISPHONATE OR OTHER ACCEPTABLE MEDICATION NEEDED FOR OSTEOPOROSIS (REFER TO SMARTSET #8337) Addressed 06/29/2017 (Refused) Overridden wi th the [...] this encounter Medical Devices Implanted Type Area Site Administrator Device Identifier Shelf Expiration Date Model / Serial / Lot Lens 23.5 M160l - [id number] - [id number] Implanted:Qty: 1 on 10/03/2015 by Arnol Auguste MD at OR [facility] Left: Eye BAUSCH & LOMB : SURGICAL 11/25/2016 [id number]-33.5 / [id number] / [id number] Lens Intraoc 23.0 - [id number] - [id number] Implanted:Qty: 1 on 06/04/2016 by Flakito Sorto MD at OR [facility] Right: Eye BAUSCH & LOMB 11/25/2020 [id number] / [id number] / documented as of this encounter Advance [...] Agen t (per Health Care Power of Yarder Puncher document) Care Teams Surveillance Systems Analyst Relationship Specialty Start Date End Date Marko September Pito, PAToniaC [address] [place] [address] PCP - General Physician Meter Technician 01/10/24 documented as of this encounter
--- OUTSIDE RECORDS SUMMARY | 2024-04-18 02:10 | External Medical Summary | Summary of Care ---
Author Name Unknown Organization [facility] Address [address] [facility] [place] [address] Phone [phone] Care Team Providers Care Front End Technician Name Role Phone Sussy Zhu PERI Primary Care Provider [phone] Reason for Visit * Reason Comments Skin Check Pt here for a full [place] skin check, no specific issues or concerns voiced at this time.Hx: SCC, BCC, AK Encounter Details Date Type Department Care Team (Late st Contact Info) Description 03/16/2024 3:45 PM EDT Office Visit Dermatology [facility] [address] [place] [address] Qian Dorman MD [address] [place] [address] Sebaceous hyperplasia*; Seborrheic keratosis; History of nonmelanoma skin cancer; Other skin changes due to chronic exposure to nonionizing radiation Allergies Active Allergy Reactions Criticality Noted Date Comments Sulfamethoxazole-Trimethopri m 01/03/2020 nausea Penicillins 03/23/2000 rash Trimethoprim High 04/01/2021 Other reaction(s): Nausea documented as of this encounter (statuses as of 03/19/2024) Medications Medication Sig Dispensed Refills Start Date [...] as of this encounter (statuses as of 03/19/2024) Active Problems Problem Noted Date Diagnosed Date Bronchospasm, exercise-induced 11/17/2023 Spinal enthesopathy, cervical region 07/14/2023 Bilateral nonexudative age-related macular degen eration 05/19/2023 Degenerative disc disease, cervical 09/09/2022 Hyperlipidemia 09/09/2022 History of 2019 novel coronavirus disease (COVID -19) 06/10/2022 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 Increased risk for Familial hypercholesterolemia (FH). Please [...] as of this encounter (statuses as of 03/19/2024) Resolved Problems Problem Noted Date Diagnosed Date [...] as of this encounter (statuses as of 03/19/2024) Immunizations Name Administration Dates Next Due COVID-19 [...] on file documented as of this encounter Patient Instructions * Patient Instructions* Qian Dorman MD - 03/16/2024 3:49 PM EDT SUNSCREEN USE AND SUN PROTECTION: 1. The best protection is sun avoidance. Seek shade if you can, especially between 9am to 5pm (peaksun hours). 2. Use sunscreen with a Sun Protection Factor (SPF) of 30 or more that protects from Ultraviolet A (UVA) and Ultraviolet B (UVB) wavelength light. This is referred to as broad spectrum sun protection. Unfortunately, even though the protection is broad it is not complete, therefore making sun avoidance the best protection. UVB and UVA have both been implicated in causing skin cancers. Older sunscreens only protected from UVB and sunscreens with added UVA protection should contain Titanium dioxide, Zinc oxide, Mexoryl or Parsol 1789, also known as Avobenzone. 3. Use sun protection daily. Apply 20-30 minutes before going out and reapply every 2 hours. No sunscreen is truly water ''proof'' and it will wash away with sweat, swimming and rubbing. 4. Wear tightly woven, loose fitting (cooler) long sleeved clothing, UV-blocking clothing and sun glasses (eyes need protection as well) and wide-brimmed hatwear (no straw hats with holes because light still gets through). HOW TO CHECK YOUR MOLES: 1. Check moles every month and have a relative/friend check your back if possible. The use of a handheld mirror can help as well. The most common place for melanoma in women are the back and legs, and for men is the back. 2. Look for the ABCD's of melanoma: Asymmetry (strange shape - not round or oval), Borders (notched, scalloped or irregular edges), Color (very black or multi-colored), Diameter (size greater than 5mm or the size greater than a pencil eraser). 3. Changes in old moles and growths of new ones in relation to the ABCD's are the most important factors. 4. Some people have many moles that fit the ABCD criteria. At times the best thing is to look for the ''Ugly Duckling'' mole - the one that stands out the most. 5. If there are any questions on a mole please do not hesitate in calling our office at [phone] to have it evaluated. documented in this encounter Progress Notes * Qian Dorman MD - 03/16/2024 3:45 PM EDT SUBJECTIVE: History of Present Illness: Rachel Garcia is a 83 year old female seen today for follow up skin check. She asks about a lesion on her right cheek and a lesion on her left forearm. 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 HEME/LYMPH: No new or enlarging lumps or bumps. MEDICA TIONS: Current Outpatient Medications Medication Sig Dispense Refill ASPIRIN 81 MG PO TABS one tab by mouth daily 34 5 Cholecalciferol (VITAMIN D-3) 25 MCG (1000 UT) Capsule Take 1 Capsule by mouth in the morning. PreserVision AREDS 2+Multi Vit Oral Capsule 2 Tablets in the morning. Naproxen Sodium 220 MG Oral Tablet as needed. Rosuvastatin Calcium 40 MG Oral Tablet (Crestor) Take 1 Tablet by mouth in the morning. 100 Tablet 3 Albuterol Sulfate HFA 108 (90 Base) MCG/ACT Inhalation Aerosol Solution INHALE 2 PUFFS BY MOUTH FOUR TIMES A DAY 18 g 3 Metoprolol Succinate ER 25 MG Oral Tablet Extended Release 24 Hour (Toprol XL) Take one tablet by mouth daily in the morning and one tablet daily in the evening. 180 Tablet 3 Estradiol 0.1 MG/GM Vaginal Cream (Estrace) Apply pea sized amount (0.5 gm) vaginally every other night 136.607 g 3 Losartan Potassium 100 MG Oral Tablet (Cozaar) Take 1 Tablet by mouth in the morning. 90 Tablet 3 Current Facility-Administered Medications Medication Dose Route Frequency Provider Last Rate Last Admin Faricimab-svoa (Vabysmo) intravitreal inj 6 mg 6 mg Intravitreal PRN Mina Christiansen DO 6 mgat 02/29/24 1304 ROPivacaine (Naropin) inj 1.5 mg 1.5 mg Injection PRN 1.5 mg at 02/29/24 1304 ALLERG IES: Trimethoprim, Bactrim [sulfamethoxazole-trimethoprim], and Penicillins OBJECTIVE: GEN: Healthy, alert, no distress, appears oriented, pleasant, and cooperative. SKIN: Detailed exam of hair, face including lids and lips, neck, back, chest, abdomen, buttocks, right and left upper extremities, right and left lower extremities including the nails and digits completed and are normal except: 1. Right cheek: 3 mm yellow thin papule with central dell 2. Left forearm with brown keratotic thin papule ASSESS MENT/PLAN: 1. sebaceous hyperplasia, right cheek - benign, reassurance 2. seborrheic keratosis, left forearm - benign, reassurance 3. History of nonmelanoma skin cancer. Heliodermatosis/other skin changes due to chronic exposure to nonionizing radiation. - Full skin check performed. No evidence of recurrence at previously treated sites of nonmelanoma skin cancer. - Recommended sunscreen (over the counter broad-spectrum sun protection factor 30+ sunscreen daily)/photoprotection. Informational handout reviewing sunscreen/photoprotection and self monitoring for melanoma was provided to patient at today's visit. - return in 12 months or sooner for any new or changing lesions of concern. Follow-up: 1 year The patient was encouraged to contact me with any further questions or concerns. Qian Dorman MD 03/16/2024 documented in this encounter Nursing Notes * Noemi Zhao CMA - 03/16/2024 3:30 PM EDT Chief Complaint Patient presents with Skin Check Pt here for a full body skin check, no specific issues or concerns voiced at this time. Hx: SCC, BCC, AK documented in this encounter Plan of Treatment Upcoming Encounters Date Type Department Care Team (Late st Contact Info) Description 04/13/2024 3:00 PM EDT Office Visit Ophthalmology, [facility] [address] [place] [address] Mina Christiansen, DO [address] [place] [address] 05/23/2024 2:40 PM EST Office Visit Family Practice [facility] [address] [facility] [place] [address] Sussy Zhu PA-C [address] [facility] [place] [address] 06/16/2024 3:00 PM EST Office Visit Gynecology/Obstetrics [facility] [address] [place] [address] [place] Mccracken CRNP [address] [place] [address] Health Maintenance Due Date Last Done Comments [...] D LEVEL ONCE IN A LIFETIME-USE SMARTSET# 50621 Completed 03/15/2006 Pneumococcal Vaccine: 65+ Years Completed 05/21/2014, 05/05/2006 *BISPHONATE OR OTHER ACCEPTABLE MEDICATION NEEDED FOR OSTEOPOROSIS (REFER TO SMARTSET #7531) Addressed 06/29/2017 (Refused) Overridden wi th the intention of not completing the topic Zoster Vaccines Completed 02/15/2020, 0 10/2019, 08/24/2019, Additional history exists HPV (Gardasil) [...] this encounter Medical Devices Implanted Type Area Painter Hand Device Identifier Shelf Expiration Date Model / Serial / Lot Lens 23.5 M160l - [id number] - [id number] Implanted:Qty: 1 on 10/03/2015 by Arnol Auguste MD at OR [facility] Left: Eye BAUSCH & LOMB : SURGICAL 11/25/2016 [id number]-[id number] / [id number] / [id number] Lens Intraoc 23.0 - [id number] - [id number] Implanted:Qty: 1 on 06/04/2016 by Flakito Sorto MD at OR [facility] Right: Eye BAUSCH & LOMB 11/25/2020 [id number] / [id number] / documented as of this encounter Visit Diagnoses Diagnosis Sebaceous hyperplasia- Primary Other specified disease of sebaceous glands Seborrheic keratosis Other seborrheic keratosis History of nonmelanoma skin cancer Personal history of other malignant neoplasm of skin Other skin changes due to chronic exposure to nonionizing radiation documented in this encounter Advance Directives * [...] Agents on File Name Relationship Healthcare Agent Ashishwa estuardo Communication Juan Garcia Adult Child Health Care Agen t (per Health Care Power of Manufacturing Project Manager document) Care Teams Front End Technician Relationship Specialty Start Date End Date Sussy Zhu PA-C [address] [place] [address] PCP - General Physician Coin Machine Servicer Repairer 01/10/24 documented as of this encounter
--- OUTSIDE RECORDS SUMMARY | 2024-04-18 02:10 | External Medical Summary | Summary of Care ---
Author Name Unknown Organization [facility] Address [address] [facility] [place] [address] Phone [phone] Care Team Providers Care Development System Efficiency Manager Name Role Phone Sussy Zhu PA-C Primary Care Provider [phone] Reason for Visit * Reason Onset Date Comments Health Maintenance 03/08/2024 Encounter Details Date Type Department Care Team (Late st Contact Info) Description 03/08/2024 Telephone Family Practice [facility] [address] [place] [address] Sussy Zhu PA-C [address] [place] [address] Health Maintenance Allergies Active Allergy Reactions Criticality Noted Date Comments Sulfamethoxazole-Trimethopri m 01/03/2020 nausea Penicillins 03/23/2000 rash Trimethoprim High 04/01/2021 Other reaction(s): Nausea documented as of this encounter (statuses as of 03/08/2024) Medications Medication Sig Dispensed Refills Start Date [...] as of this encounter (statuses as of 03/08/2024) Active Problems Problem Noted Date Diagnosed Date Bronchospasm, exercise-induced 11/17/2023 Spinal enthesopathy, cervical region 07/14/2023 Bilateral nonexudative age-related macular degen eration 05/19/2023 Degenerative disc disease, cervical 09/09/2022 Hyperlipidemia 09/09/2022 History of 2019 novel coronavirus disease (COVID -19) 06/10/2022 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 Increased risk for Familial hypercholesterolemia (FH). Please [...] as of this encounter (statuses as of 03/08/2024) Resolved Problems Problem Noted Date Diagnosed Date [...] as of this encounter (statuses as of 03/08/2024) Immunizations Name Administration Dates Next Due COVID-19 [...] encounter Miscellaneous Notes * Telephone Encounter - Cherry Mahajan LPN - 03/08/2024 8:08 AM EDT Care Gaps Comprehensive Care Outreach Last Office/Telemedicine Visit: 02/17/2024 (in office), 11/03/2019 (telemedicine) Next Office Visit: 05/23/2024 Hemoglobin AIC Results: No results found for: "HEMOGLOBIN A1C" BP Readings from Last 1 Encounters: 02/17/24 144/70 Reviewed Health Maintenance below: Health Maintenance Topic Date Due Adult Wellness Visit Never done DXA Scan 04/30/2016 DTap/Tdap Vaccines (2 - Td or Tdap) 06/30/2023 Influenza Vaccine (FLU shot) (1) 02/27/2024 COVID-19 Vaccine ( season) 2024 Awv dexa Care Gap Outreach Action Taken: Left message documented in this encounter Plan of Treatment Upcoming Encounters Date Type Department Care Team (Late st Contact Info) Description 03/16/2024 11:30 AM EDT Office Visit Gynecology/Obstetrics [facility] [address] [place] [address] [place] Mccracken CRNP [address] [place] [address] 03/16/2024 3:45 PM EDT [facility] [address] [place] [address] Qian Dorman MD [address] [place] [address] 04/13/2024 3:00 PM EDT Office Visit Ophthalmology, [facility] [address] [place] [address] Mina Christiansen DO [address] [place] [address] 05/23/2024 2:40 PM EST Office Visit Family Practice [facility] [place] [address] [place] [address] Sussy Zhu PA-C [address] [place] [address] Health Maintenance Due Date Last Done Comments [...] D LEVEL ONCE IN A LIFETIME-USE SMARTSET# 77914 Completed 03/15/2006 Pneumococcal Vaccine: 65+ Years Completed [...] this encounter Medical Devices Implanted Type Area Conveyor Maintenance Mechanic Device Identifier Shelf Expiration Date Model / Serial / Lot Lens 23.5 M160l - [id number] - [id number] Implanted:Qty: 1 on 10/03/2015 by Arnol Auguste MD at OR [facility] Left: Eye BAUSCH & LOMB : SURGICAL 11/25/2016 [id number]-23.5 / [id number] / [id number] Lens Intraoc 23.0 - [id number] - [id number] Implanted:Qty: 1 on 06/04/2016 by Flakito Sorto MD at OR [facility] Right: Eye BAUSCH [employer] LOMB 11/25/2020 [id number] / [id number] / documented as of this encounter Advance [...] Agents on File Name Relationship Healthcare Agent [facility] Communication Juan Garcia Adult Child Health Care Agen t (per Health Care Power of Subject Scientific Research document) Care Teams Development System Efficiency Manager Relationship Specialty Start Date End Date Sussy Zhu PA-C [facility] [place] [address] [place] [address] PCP - General Physician Printmaker 01/10/24 documented as of this encounter
--- OUTSIDE RECORDS SUMMARY | 2024-04-18 02:11 | External Medical Summary | Summary of Care ---
Author Name Unknown Organization [facility] Address [address] [facility] [place] [address] Phone [phone] Care Team Providers Care Veterinarian Poultry Name Role Phone Sussy Zhu PA-C Primary Care Provider [phone] Reason for Visit * Reason Comments Re-Check Encounter Details Date Type Department Care Team (Late st Contact Info) Description 02/17/2024 2:00 PM EDT Office Visit Family Practice [facility] [address] [place] [address] Sussy Zhu PA-C [address] [facility] [place] [address] Confusion*; HTN, goal below 140/90; DYSLIPIDEMIA, GOAL TO BE DETERMINED Allergies Active Allergy Reactions Criticality Noted Date Comments Sulfamethoxazole-Trimethopri m 01/03/2020 nausea Penicillins 03/23/2000 rash Trimethoprim High 04/01/2021 Other reaction(s): Nausea documented as of this encounter (statuses as of 02/17/2024) Medications Medication Sig Dispensed Refills Start Date [...] HFA 108 (90 Base) MCG/ACT Inhalation Aerosol SolutionIndication s:Bronchospasm, exercise-induced INHALE 2 PUFFS BY MOUTH FOUR [...] the morning. 90 Tablet 3 12/17/2023 Active Cephalexin 500 MG Oral Capsule Take 1 Capsule by mouth in the morning and 1 Capsule before bedtime. Do all this for 10 days. 20 Capsule 02/14/2024 02/24/2024 Active Hospital, Clinic, or Other Facility Administered Medication Ordered Dose Route Frequency Start Date End Date Status Faricimab-svoa (Vabysmo) intravitreal inj 6 mgIndications:Exudative age-related macular degeneration of right eye with active choroidal neovascularization (HCC) 6 mg IZ PRN 07/08/2023 07/07/2024 Active documented as of this encounter (statuses as of 02/17/2024) Active Problems Problem Noted Date Diagnosed Date Bronchospasm, exercise-induced 11/17/2023 Spinal enthesopathy, cervical region 07/14/2023 Bilateral nonexudative age-related macular degen eration 05/19/2023 Degenerative disc disease, cervical 09/09/2022 Hyperlipidemia 09/09/2022 History of 2019 novel coronavirus disease (COVID -19) 06/10/2022 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 Increased risk for Familial hypercholesterolemia (FH). Please [...] as of this encounter (statuses as of 02/17/2024) Resolved Problems Problem Noted Date Diagnosed Date [...] as of this encounter (statuses as of 02/17/2024) Immunizations Name Administration Dates Next Due COVID-19 mRNA, LNP-s, No Pre serve, 2-Dose Series (Pfizer) 10/01/2021,04/07/2021,09/14/2020,07/30 COVID-19, LNP-s, No Preserve , Yimi-sucrose, [...] Sign Reading Time Taken Comments Blood Pressure 144/70 02/17/2024 1:32 PM EDT Pulse 78 02/17/2024 1:32 PM EDT Temperature 36.8 C (98.2 F) 02/17/2024 1:32 PM ED T Respiratory Rate 16 02/17/2024 1:32 PM EDT Oxygen Saturation 98% 02/17/2024 1:32 PM EDT Inhaled Oxygen Concentration - - Weight 51.3 kg (113 lb) 02/17/2024 1:32 PM EDT Height - - Body Mass Index 20.02 12/17/2023 11:03 AM EDT documented in this encounter Progress Notes * Sussy Zhu PA-C - 02/17/2024 2:21 PM EDT Images from the original note were not included. History of Present Illness Rachel Garcia is a 83 year old female that presents for Re-Check Patient is a 83 year old female who presents for a recheck. Continues to have confusion. Has had UTIs recently. Just had urinalysis and culture done on Wednesday. Urinalysis showed some abnormalities but culture grew nothing out. She continues to have significant amount of confusion. She has been given a prescription for Keflex that she did not know she had though she has not started it yet. Physical Exam Vitals: 02/17/24 1332 Temp: 36.8 C (98.2 F) Pulse: 78 Resp: 16 SpO2: 98% BP: 144/70 BP Readings from Last 3 Encounters: 02/17/24 144/70 02/14/24 144/68 01/10/24 132/70 Wt Readings from Last 3 Encounters: 02/17/24 51.3 kg (113 lb) 02/14/24 49.9 kg (110 lb) 01/10/24 51.5 kg (113 lb 9.6 oz) General: alert, healthy, no distress, well nourished, well developed, and cooperative Head: Normocephalic, No masses, lesions, tenderness or abnormalities Eye Exam: PERRLA, extraocular movements intact, conjunctiva are pink and non- injected, sclera clear Heart: regular rate & rhythm, no murmur, and no gallops Lungs: chest symmetric with normal AP diameter, no chest deformities noted, normal respiratory rateand rhythm, no chest wall tenderness, diaphragmatic excursion normal, lungs clear to auscultation Abdomen: abdomen soft, non-tender, normal bowel sounds, no masses or organomegaly, no rebound or guarding, no CVA tenderness, no bladder distention identified, and no bruits Back: back symmetric, no curvature, no costovertebral angle tenderness, range of motion is normal, no skin lesions, erythema or scars, no tenderness to percussion or palpation I have reviewed the following results: Urine Culture and Urinalysis, POC Assessment and Plan Confusion (Primary) - CULTURE, URINE, QUANTITATIVE; Future; Expected date: 02/17/2024 HTN, goal below 140/90 DYSLIPIDEMIA, GOAL TO BE DETERMINED Patient was advised to hold on antibiotic for now we will repeat culture. Wrap-Up Time: I spent a total of 30-39 minutes (exact time 35 mins) on the date of service in preparation, delivery, and documentation of the care provided to Rachel Garcia excluding any time spent in the performance of separately billed services. documented in this encounter Nursing Notes * Maddy Earl LPN - 02/17/2024 1:23 PM EDT [address] Heart on 02/13 for possible UTI - had confusion Culture is back Pt never started abx because she was confused Pt is still confused documented in this encounter Plan of Treatment Upcoming Encounters Date Type Department Care Team (Late st Contact Info) Description 02/29/2024 11:30 AM EDT Office Visit Ophthalmology, [address] [place] [address] Mina Christiansen DO [address] [place] [address] 03/16/2024 11:30 AM EDT Office Visit Gynecology/Obstetrics [facility] [address] [place] [address] yN Mccracken CRNP [address] [place] [address] 03/16/2024 3:45 PM EDT Office Visit Dermatology [facility] [address] [facility] [place] [address] Qian Dorman MD [address] [place] [address] 05/23/2024 2:40 PM EST Office Visit Family Practice [facility] [place] [address] [facility] [place] [address] Sussy Zhu PA-C [address] [facility] [place] [address] Pending Results Name Type Priority Associated Diagnoses Date /Time CULTURE, URINE, QUANTITATIVE Lab Routine Confusion 02/17/2024 2:48 PM EDT Scheduled Orders Name Type Priority Associated Diagnoses Orde r Schedule CULTURE, URINE, QUANTITATIVE Lab Routine Confusion Expected: 02/17/2024, Expires: 02/16/2025 Health Maintenance Due Date Last Done Comments Adult Wellness Visit 12/24/2005 DXA Scan 04/30/2016 04/30/2014, 03/29, 04/18/2012, Additional history exists COVID-19 Vaccine ( season) 2023 04/04/2022, 10/01/2021, 04/07/2021, Additional history exists DTaP,Tdap,and Td Vaccines (2 - Td or Tdap) 06/30/2023 06/30/2013, 06/30/2005, 06/30/2005 Influenza Vaccine (FLU shot) (#1) 2024 03/24/2023, 04/13/2022, 03/11/2021, Additional history exists Albumin/Creatinine Ratio 09/11/2024 09/11/2021 Depression Screening 12/14/2024 12/15/2023, 06/29/2017 (Discussed) GFR 02/13/2025 02/14/2024, 08/2022, 09/17/2022, Additional history exists VITAMIN D LEVEL ONCE IN A LIFETIME-USE SMARTSET# 83175 Completed 03/15/2006 Pneumococcal Vaccine: 65+ Years Completed [...] this encounter Medical Devices Implanted Type Area Director Recreation Device Identifier Shelf Expiration Date Model / Serial / Lot Lens 23.5 M160l - [id number] - [id number] Implanted:Qty: 1 on 10/03/2015 by Arnol Auguste MD at OR [facility] Left: Eye BAUSCH & LOMB : SURGICAL 11/25/2016 [id number]-[id number] / [id number] / [id number] Lens Intraoc 23.0 - [id number] - [id number] Implanted:Qty: 1 on 06/04/2016 by Flakito Sorto MD at OR [facility] Right: Eye BAUSCH & LOMB 11/25/2020 [id number] / [id number] / documented as of this encounter Visit Diagnoses Diagnosis Confusion- Primary Unspecified psychosis HTN, goal below 140/90 Unspecified essential hypertension DYSLIPIDEMIA, GOAL TO BE DETERMINED Other and unspecified hyperlipidemia documented in this encounter Advance Directives * [...] Agents on File Name Relationship Healthcare Agent [facility] p Communication Juan Garcia Adult Child Health Care Agen t (per Health Care Power of Information And Data Architect Analyst document) Care Teams Veterinarian Poultry Relationship Specialty Start Date End Date Marko September PERI She[place]on [address] [facility] [place] [address] PCP - General Physician Corporate Learning Consultant 01/10/24 documented as of this encounter
--- OUTSIDE RECORDS SUMMARY | 2024-04-18 02:11 | External Medical Summary | Summary of Care ---
Author Name Unknown Organization [facility] Address [address] [facility] [place] [address] Phone [phone] Care Team Providers Care News Correspondent Name Role Phone Sussy Zhu PA-C Primary Care Provider [phone] Reason for Visit * Reason Comments Re-Check Encounter Details Date Type Department Care Team (Late st Contact Info) Description 02/17/2024 2:00 PM EDT Office Visit Family Practice [facility] [address] [place] [address] Sussy Zhu PA-C [address] [place] [address] Confusion*; HTN, goal below 140/90; DYSLIPIDEMIA, GOAL [...] gene variant (c.1783 C>T, p.(R595W)) detected via CorvisaCloud. Increased risk for Familial hypercholesterolemia (FH). Please [...] 02/29/2024 11:30 AM EDT Office Visit Ophthalmology, [address] [place] [address] Mina Christiansen DO [address] [place] [address] 03/16/2024 11:30 AM EDT Office Visit Gynecology/Obstetrics [facility] [address] [place] [address] Ny Mccracken CRNP [address] [place] [address] 03/16/2024 3:45 PM EDT Office Visit Dermatology [facility] [place] [address] [facility] [place] [address] Qian Dorman MD [address] [facility] [place] [address] Pending Results Name Type Priority Associated Diagnoses [...] D LEVEL ONCE IN A LIFETIME-USE SMARTSET# 70272 Completed 03/15/2006 Pneumococcal Vaccine: 65+ Years Completed [...] this encounter Medical Devices Implanted Type Area Commercial Analyst Device Identifier Shelf Expiration Date Model / Serial / Lot Lens 23.5 M160l - [id number] - [id number] Implanted:Qty: 1 on 10/03/2015 by Arnol Auguste MD at OR [facility] Left: Eye BAUSCH & LOMB : SURGICAL 11/25/2016 [id number]-15.5 / [id number] / [id number] Lens Intraoc 23.0 - [id number] - [id number] Implanted:Qty: 1 on 06/04/2016 by Flakito Sorto MD at OR [facility] Right: Eye BAUSCH & LOMB 11/25/2020 [id number] / [id number] / documented as of this encounter Visit [...] Agen mariia (per Health Care Power of Portfolio Consultant document) Care Teams News Correspondent Relationship Specialty Start Date End Date MarkoSeptember Pito, ARIESC [address] [place] [address] PCP - General Physician Internet Marketing Strategist 01/10/24 documented as of this encounter
--- OUTSIDE RECORDS SUMMARY | 2024-04-18 02:11 | External Medical Summary | Summary of Care ---
Author Name Unknown Organization [facility] Address [address] [facility] [place] [address] Phone [phone] Care Team Providers Care Chief Medical Officer Name Role Phone Sussy Zhu Pito WHITT Primary Care Provider [phone] Reason for Visit * Reason Comments Follow Up 6-8 week follow up Encounter Details Date Type Department Care Team (Late st Contact Info) Description 02/29/2024 11:30 AM EDT Office Visit Ophthalmology, [facility] [address] [place] [address] Mina Christiansen, [address] [place] [address] Exudative age-related macular degeneration of right eye with active choroidal neovascularization (HCC)* Allergies Active Allergy Reactions Criticality Noted Date Comments Sulfamethoxazole-Trimethopri m 01/03/2020 nausea Penicillins 03/23/2000 rash Trimethoprim High 04/01/2021 Other reaction(s): Nausea documented as of this encounter (statuses as of 02/29/2024) Medications Medication Sig Dispensed Refills Start Date [...] as of this encounter (statuses as of 02/29/2024) Active Problems Problem Noted Date Diagnosed Date Bronchospasm, exercise-induced 11/17/2023 Spinal enthesopathy, cervical region 07/14/2023 Bilateral nonexudative age-related macular degen eration 05/19/2023 Degenerative disc disease, cervical 09/09/2022 Hyperlipidemia 09/09/2022 History of 2019 novel coronavirus disease (COVID -19) 06/10/2022 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 Increased risk for Familial hypercholesterolemia (FH). Please click the link below into your browser for a brief summary of current clinical management recommendations for Familial Hypercholesterolemia. LDLR Hx of nonmelanoma skin cancer 11/20/2021 Overview: 2020 SCC nose 2016basal cell carcinoma on the [...] as of this encounter (statuses as of 02/29/2024) Resolved Problems Problem Noted Date Diagnosed Date [...] as of this encounter (statuses as of 02/29/2024) Immunizations Name Administration Dates Next Due COVID-19 [...] Influenza, Trivalen t, (IIV3), with Preserv, (Fluzone) 05/21/2014,03/11/2013,04/22/2012,03/28,03/28/2010,05/22/2009,05/02/20 08,04/04/2007,05/05/2006,04/11/2003,1 ,05/31/2001 Seasonal Influenza, Trivalen t, Adjuvanted, 65+ YRS, [...] Progress Notes * Mina Christiansen DO - 02/29/2024 11:30 AM EDT [facility] [place] Nursing Notes: Tamar Cunha LPN 02/29/24 1136 Signed Rachel Garcia is a 83 year old year old female who presents for AMD . Last Office Visit: 01/04/2024 (in office), Visit date not found (telemedicine) Patient currently states no change in vision. Are you diabetic? No Do you drive? yes OCT image(s) of both eyes acquired and filed/scanned into chart. Base Eye Exam Visual Acuity (Snellen - Linear) Right Left Dist sc 20/80 -1 20/40 -1 Dist ph sc NI NI Tonometry (Tonopen, 11:35 AM) Right Left Pressure 10 9 Tonometry #2 (Tonopen, 11:36 AM) Right Left Pressure 12 Pupils Pupils APD Right PERRL None Left PERRL None Visual Ramirez (Counting fingers) Right Left Full Restrictions Total inferior nasal deficiency Extraocular Movement Right Left Full, Ortho Full, Ortho Neuro/Psych Oriented x3: Yes Dilation Both eyes: 0.5% Proparacaine @ 11:35 AM Dilation #2 Both eyes: 1.0% Mydriacyl, 2.5% Phenylephrine @ 11:35 AM Dilation Comments Patient cautioned that effects [...] 22um prior worse, prior improved 29um, prior [id number], prior STABLE, prior no sig change, prior [...] FA (07/06/08) - s/p Avastin (04-27-19, 03-16-19, 01-19-, 11-24-19, 10-04-18, 08-23-19, 07-19-19, 06-09-18) - worse on Avastin and new heme on exam - switched to Eylea (04/30/23, 03/29/23, 02/23/23, 01/21/23, 12/15/22, 10/06/22, 07/28/22, 06/02/22, 04/15/22, 03/10/22, 01/28/22, 12/24/21, 10/15/21, 08/07/21, 07/07/21, 06/09/21, 04-28-, 03/19/21, 02-18-21, 12-11-21, 10-22-21, 21, 07-17-21, 06-05-20, 04-30-20, 03-26-20, 02-07-20, 01-02-20, 11-20-20, 10-09-20, 08-28-20, 07-19-20, 06-14-19) - worse at 9 and 10 weeks missed appoint due to travel; better at 6-8 weeks - had heme at 9 weeks -3 weeks since injection - worsening heme and metamorphopsia on Eylea- switched to Vabysmo - Vabysmo 01/19/24, 11/30/23, 10/21/23, 09/23/23, 08/19/23, 07/08/23 -8 weeks OS: dry -monitor -An examination for this condition was completed which is unrelated to the procedure that was performed today. -recommend AREDS2 MVI as directed and Amsler grid qday --pt cannot tolerate due to nausea so only taking Lutein 20mg/day 2. Pseudophakia OU - s/p YAG PC OS -monovision F/u 6-8 weeks, MAR OU Mina Christiansen DO CC: Archie Bronson, OD PCP: Seun Riddle, DO TIMEOUT PROCEDURE: correct patient identity-YES correct [...] Nursing Notes * Gisella Hope RN - 02/29/2024 11:53 AM EDT Rachel Garcia to receive seventh Vabysmo 6mg Injection of the Right eye. Correct eye confirmed with patient and marked by Mina Christiansen DO Vabysmo 6mg lot # [id number] Exp. Date: 08/2025 * Tamar Cunha LPN - 02/29/2024 11:26 AM EDT Rachel Garcia is a 83 year old year old female who presents for AMD . Last Office Visit: 01/04/2024 (in office), Visit date not found (telemedicine) Patient currently states no change in vision. Are you diabetic? No Do you drive? yes OCT image(s) of both eyes acquired and filed/scanned into chart. documented in this encounter Miscellaneous Notes * Addendum Note - Gisella Hope RN - 02/29/2024 11:58 AM EDTAddended by: GISELLA HOPE on: 02/29/2024 11:58 AM Modules accepted: Orders documented in this encounter Plan of Treatment Upcoming Encounters Date Type Department Care Team (Late st Contact Info) Description 03/16/2024 11:30 AM EDT Office Visit Gynecology/Obstetrics [facility] [address] [place] [address] Ny Mccracken CRNP [address] [place] [address] 03/16/2024 3:45 PM EDT Office Visit Dermatology [place] [address] [place] [address] Qian Dorman MD [address] [facility] [place] [address] 05/23/2024 2:40 PM EST Office Visit Family Practice [facility] [address] [facility] [place] [address] Sussy Zhu PA-C [address] [facility] [place] [address] Scheduled Orders Name Type Priority Associated Diagnoses Orde r Schedule RETINA SCAN DIAGNOSTIC IMAGE, POSTERIOR Procedures Routine Exudative age-related macular degeneration of right eye with active choroidal neovascularization (HCC) Ordered: 02/29/2024 Health Maintenance Due Date Last Done Comments [...] 12/14/2024 12/15/2023, 06/29/2017 (Discussed) GFR 02/13/2025 02/14/2024, 1008/2022, 09/17/2022, Additional history exists VITAMIN D LEVEL ONCE IN A LIFETIME-USE SMARTSET# 75129 Completed 03/15/2006 Pneumococcal Vaccine: 65+ Years Completed 05/21/2014, 05/05/2006 *BISPHONATE OR OTHER ACCEPTABLE MEDICATION NEEDED FOR OSTEOPOROSIS (REFER TO SMARTSET #4386) Addressed 06/29/2017 (Refused) Overridden wi th the [...] this encounter Medical Devices Implanted Type Area Chain Maker Machine Device Identifier Shelf Expiration Date Model / Serial / Lot Lens 23.5 M160l - [id number] - [id number] Implanted:Qty: 1 on 10/03/2015 by Arnol Auguste MD at OR [facility] Left: Eye BAUSCH & LOMB : SURGICAL 11/25/2016 [id number]-37.5 / [id number] / [id number] Lens Intraoc 23.0 - [id number] - [id number] Implanted:Qty: 1 on 06/04/2016 by Flakito Sorto MD at OR [facility] Right: Eye BAUSCH & LOMB 11/25/2020 [id number] / [id number] / documented as of this encounter Visit Diagnoses Diagnosis Exudative age-related macular degeneration of right eye with active choroidal neovascularization (HCC)- Primary documented in this encounter Advance Directives * [...] Communication Juan Garcia Adult Child Health Care Phuc t (per Health Care Power of Coremaking Machine Setter document) Care Teams Chief Medical Officer Relationship Specialty Start Date End Date Marko September PERI Sheldon [address] [facility] [place] [address] PCP - General Physician Machine Setup Operator 01/10/24 documented as of this encounter
--- OUTSIDE RECORDS SUMMARY | 2024-04-18 02:11 | External Medical Summary | Summary of Care ---
Author Name Unknown Organization [facility] Address [address] [facility] [place] [address] Phone [phone] Care Team Providers Care Jacket Preparer Name Role Phone Sussy Zhu Pito WHITT Primary Care Provider [phone] Reason for Visit * Reason Comments Follow Up 6-8 week follow up Encounter Details Date Type Department Care Team (Late st Contact Info) Description 02/29/2024 11:30 AM EDT Office Visit Ophthalmology, [facility] [address] [place] [address] Mina Christiansen, [address] [place] [address] Exudative age-related macular degeneration of right eye [...] gene variant (c.1783 C>T, p.(R595W)) detected via ViViFi. Increased risk for Familial hypercholesterolemia (FH). Please [...] - 02/29/2024 11:30 AM EDT [facility] [place] Nursing Notes: Tamar [...] 22um prior worse, prior improved 29um, prior [id number], prior STABLE, prior no sig change, prior [...] Mina Christiansen DO Vabysmo 6mg lot # [id number] Exp. Date: 08/2025 * Tamar Cunha LPN [...] 03/16/2024 11:30 AM EDT Office Visit Gynecology/Obstetrics [facility] [address] [place] [address] Ny Mccracken CRNP [address] [place] [address] 03/16/2024 3:45 PM EDT Office Visit Dermatology [place], [place] [address] [place] [address] Qian Dorman MD [address] [facility] [place] [address] 05/23/2024 2:40 PM EST Office Visit Family Practice [facility] [address] [facility] [place] [address] Sussy Zhu PA-C [address] [facility] COUNTS INCLUDE [address] [facility] [place] [address] Scheduled Orders Name Type Priority Associated Diagnoses [...] D LEVEL ONCE IN A LIFETIME-USE SMARTSET# 98442 Completed 03/15/2006 Pneumococcal Vaccine: 65+ Years Completed 05/21/2014, 05/05/2006 *BISPHONATE OR OTHER ACCEPTABLE MEDICATION NEEDED FOR OSTEOPOROSIS (REFER TO SMARTSET #4006) Addressed 06/29/2017 (Refused) Overridden wi th the [...] this encounter Medical Devices Implanted Type Area Rides Attendant Device Identifier Shelf Expiration Date Model / Serial / Lot Lens 23.5 M160l - [id number] - [id number] Implanted:Qty: 1 on 10/03/2015 by Arnol Auguste MD at OR [facility] Left: Eye BAUSCH & LOMB : SURGICAL 11/25/2016 [id number]-35.5 / [id number] / [id number] Lens Intraoc 23.0 - [id number] - [id number] Implanted:Qty: 1 on 06/04/2016 by Flakito Sorto MD at OR [facility] Right: Eye BAUSCH & LOMB 11/25/2020 [id number] / [id number] / documented as of this encounter Visit [...] Phuc t (per Health Care Power of Parachute Taper document) Care Teams Jacket Preparer Relationship Specialty Start Date End Date Marko September PERI Sheldon [address] [facility] [place] [address] PCP - General Physician Motion Picture Film Examiner 01/10/24 documented as of this encounter
--- OUTSIDE RECORDS SUMMARY | 2024-04-18 02:11 | External Medical Summary | Summary of Care ---
Author Name Unknown Organization [facility] Address [address] [facility] [place] [address] Phone [phone] Care Team Providers Care Parachute Cushion Installer Name Role Phone Sussy Zhu Pito WHITT Primary Care Provider [phone] Reason for Visit * Reason Comments Follow Up 6-8 week follow up Encounter Details Date Type Department Care Team (Late st Contact Info) Description 02/29/2024 11:30 AM EDT Office Visit Ophthalmology, [facility] [address] [place] [address] Jens Christiansen, [address] [place] [address] Exudative age-related macular degeneration of right eye [...] gene variant (c.1783 C>T, p.(R595W)) detected via AdexLink. Increased risk for Familial hypercholesterolemia (FH). Please [...] mRNA, LNP-s, No Pre serve, 2-Dose Series (123ContactForm) 10/01/2021,04/07/2021,09/14/2020,07/30 COVID-19, LNP-s, No Preserve , Yimi-sucrose, [...] as of this encounter Progress Notes * Jens Christiansen, DO - 02/29/2024 11:30 AM EDT [facility] [place] Nursing Notes: Tamar [...] 22um prior worse, prior improved 29um, prior [id number], prior STABLE, prior no sig change, prior [...] OS -monovision F/u 6-8 weeks, OCT OU Jens Christiansen DO CC: Archie Bronson, OD PCP: [...] instructedto use ophthalmic ointment 3x/day as needed. Jens Christiansen DO, performed the procedure in its entirety. documented in this encounter Nursing Notes * Gisella Hope RN - 02/29/2024 11:53 AM EDT Rachel Garcia to receive seventh Vabysmo 6mg Injection of the Right eye. Correct eye confirmed with patient and marked by Jens Christiansen DO Vabysmo 6mg lot # [id number] Exp. Date: 08/2025 * Tamar Cunha LPN [...] on: 02/29/2024 11:58 AM Modules accepted: Orders * Addendum Note - Jens Christiansen DO - 02/29/2024 11:30 AM EDTAddended by: JENS CHRISTIANSEN on: 02/29/2024 12:16 PM Modules accepted: Orders documented in this encounter Plan of Treatment Upcoming Encounters Date Type Department Care Team (Late st Contact Info) Description 03/16/2024 11:30 AM EDT Office Visit Gynecology/Obstetrics [facility] [address] [place] [address] Ny Mccracken CRNP [address] [place] [address] 03/16/2024 3:45 PM EDT Office Visit Dermatology [facility] [address] [facility] [place] [address] Qian Dorman MD [address] [facility] [place] [address] 05/23/2024 2:40 PM EST Office Visit Family Practice [facility] [address] [facility] [place] [address] Sussy Zhu PA-C [address] [facility] [place] [address] Scheduled Orders Name Type Priority Associated Diagnoses [...] D LEVEL ONCE IN A LIFETIME-USE SMARTSET# 13063 Completed 03/15/2006 Pneumococcal Vaccine: 65+ Years Completed [...] encounter Medical Devices Implanted Type Area Rn Documentation Specialist Device Identifier Shelf Expiration Date Model / Serial / Lot Lens 23.5 M160l - [id number] - [id number] Implanted:Qty: 1 on 10/03/2015 by Arnol Auguste MD at OR [facility] Left: Eye BAUSCH & LOMB : SURGICAL 11/25/2016 [id number]-35.5 / [id number] / [id number] Lens Intraoc 23.0 - [id number] - [id number] Implanted:Qty: 1 on 06/04/2016 by Flakito Sorto MD at OR [facility] Right: Eye BAUSCH & LOMB 11/25/2020 [id number] / [id number] / documented as of this encounter Visit [...] Agents on File Name Relationship Healthcare Agent [facility] p Communication Juan Garcia Adult Child Health Care Agen mariia (per Health Care Power of Refrigeration Manager document) Care Teams Parachute Cushion Installer Relationship Specialty Start Date End Date MarkoSeptember ARIES SheldonC [address] [facility] [place] [address] PCP - General Physician Cutting Pressman 01/10/24 documented as of this encounter
--- OUTSIDE RECORDS SUMMARY | 2024-04-18 02:11 | External Medical Summary | Summary of Care ---
Author Name Unknown Organization [facility] Address [address] [facility] [place] [address] Phone [phone] Care Team Providers Care Dramatic Coach Name Role Phone KaminiSussy juárez Pito WHITT Primary Care Provider [phone] Reason for Visit * Reason Comments Confusion Encounter Details Date Type Department Care Team (Late st Contact Info) Description 02/14/2024 4:20 PM EDT Office Visit Family Practice [facility] [address] [facility] [place] [address] Charissa Heart DO [address] [facility] [place] [address] Acute cystitis with hematuria* Allergies Active Allergy Reactions Criticality Noted Date Comments Sulfamethoxazole-Trimethopri m 01/03/2020 nausea Penicillins 03/23/2000 rash Trimethoprim High 04/01/2021 Other reaction(s): Nausea documented as of this encounter (statuses as of 03/02/2024) Medications Medication Sig Dispensed Refills Start Date [...] 12/17/2023 Active Ondansetron HCl 4 MG Oral TabletIndication s:Nausea without vomiting Take 1 Tablet by mouth every 6 hours as needed for Nausea. 30 Tablet 5 07/21/2023 02/14/2024 Discontinued (Medication List Clean Up) Doxycycline Hyclate 100 MG Oral Capsule Take 1 Capsule by mouth in the morning and 1 Capsule before bedtime. Do all this for 7 days. Take for 7 days. 14 Capsule 02/08/2024 02/15/2024 Cephalexin 500 MG Oral CapsuleIndicatio ns:Acute cystitis with hematuria Take 1 Capsule by mouth in the morning and 1 Capsule before bedtime. Do all this for 10 days. 20 Capsule 02/14/2024 02/24/2024 Hospital, Clinic, or Other Facility Administered Medication Ordered Dose Route Frequency Start Date End Date Status Faricimab-svoa (Vabysmo) intravitreal inj 6 mgIndications:Exudative age-related macular degeneration of right eye with active choroidal neovascularization (HCC) 6 mg IZ PRN 07/08/2023 07/07/2024 Active documented as of this encounter (statuses as of 03/02/2024) Active Problems Problem Noted Date Diagnosed Date Bronchospasm, exercise-induced 11/17/2023 Spinal enthesopathy, cervical region 07/14/2023 Bilateral nonexudative age-related macular degen eration 05/19/2023 Degenerative disc disease, cervical 09/09/2022 Hyperlipidemia 09/09/2022 History of 2019 novel coronavirus disease (COVID -19) 06/10/2022 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 Increased risk for Familial hypercholesterolemia (FH). Please click the link below into your browser for a brief summary of current clinical management recommendations for Familial Hypercholesterolemia. 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 nasal supratip(2 [...] as of this encounter (statuses as of 03/02/2024) Resolved Problems Problem Noted Date Diagnosed Date [...] as of this encounter (statuses as of 03/02/2024) Immunizations Name Administration Dates Next Due COVID-19 mRNA, LNP-s, No Pre serve, 2-Dose Series ([employer]) 10/01/2021,04/07/2021,09/14/2020,08/24 COVID-19, LNP-s, No Preserve , Yimi-sucrose, [...] Sign Reading Time Taken Comments Blood Pressure 144/68 02/14/2024 4:24 PM EDT Pulse 76 02/14/2024 4:24 PM EDT Temperature 37 C (98.6 F) 02/14/2024 4:24 PM EDT Respiratory Rate 16 02/14/2024 4:24 PM EDT Oxygen Saturation 96% 02/14/2024 4:24 PM EDT Inhaled Oxygen Concentration - - Weight 49.9 kg (110 lb) 02/14/2024 4:24 PM EDT Height - - Body Mass Index 19.49 12/17/2023 11:03 AM EDT documented in this encounter Progress Notes * Charissa Heart, DO - 02/14/2024 4:29 PM EDT Subjective: Rachel Garcia is a 83 year old female. Chief Complaint Patient presents with Confusion HPI: Rachel Garcia presents with complaints of increased confusion. States she gets like this when shehas a UTI. Finished doxycycline for enterococcus UTI. No fevers, chills, nausea, vomiting, diarrhea, constipation, abdominal pain, or lethargy. PHM: Patient Active Problem List Diagnosis HTN, goal below 140/90 No advance directive on file Osteoporosis Exudative macular degeneration (HCC) DYSLIPIDEMIA, GOAL TO BE DETERMINED History of tobacco abuse DJD (degenerative joint disease) of knee Primary osteoarthritis of right knee Hx of nonmelanoma skin cancer Hx of actinic keratosis Monoallelic mutation of LDLR gene History of 2019 novel coronavirus disease (COVID-19) Degenerative disc disease, cervical Hyperlipidemia Bilateral nonexudative age-related macular degeneration Spinal enthesopathy, cervical region (HCC) Bronchospasm, exercise-induced Current Outpatient Medications Medication Sig Dispense Refill Losartan Potassium 100 MG Oral Tablet (Cozaar) Take 1 Tablet by mouth in the morning. 90 Tablet 3 Estradiol 0.1 MG/GM Vaginal Cream (Estrace) Apply pea sized amount (0.5 gm) vaginally every other night 136.607 g 3 Metoprolol Succinate ER 25 MG Oral Tablet Extended Release 24 Hour (Toprol XL) Take one tablet by mouth daily in the morning and one tablet daily in the evening. 180 Tablet 3 Albuterol Sulfate HFA 108 (90 Base) MCG/ACT Inhalation Aerosol Solution INHALE 2 PUFFS BY MOUTH FOUR TIMES A DAY 18 g 3 Rosuvastatin Calcium 40 MG Oral Tablet (Crestor) Take 1 Tablet by mouth in the morning. 100 Tablet 3 Naproxen Sodium 220 MG Oral Tablet as needed. PreserVision AREDS 2+Multi Vit Oral Capsule 2 Tablets in the morning. Cholecalciferol (VITAMIN D-3) 25 MCG (1000 UT) Capsule Take 1 Capsule by mouth in the morning. ASPIRIN 81 MG PO TABS one tab by mouth daily 34 5 Current Facility-Administered Medications Medication Dose Route Frequency Provider Last Rate Last Admin ROPivacaine (Naropin) inj 1.5 mg 1.5 mg Injection PRN 1.5 mg at 02/29/24 1304 Faricimab-svoa (Vabysmo) intravitreal inj 6 mg 6 mg Intravitreal PRN Mina Christiansen, DO 6 mgat 02/29/24 1304 Review of patient's allergies indicates: Allergen Reactions Trimethoprim Other reaction(s): Nausea Bactrim [Sulfamethoxazole-Trimethoprim] nausea Penicillins rash Objective: BP 144/68 | Pulse 76 | Temp 37 C (98.6 F) (Tympanic) | Resp 16 | Wt 49.9 kg (110 lb) | SpO2 96%| BMI 19.49 kg/m | BSA 1.49 m 06/23/2023 06/29/2023 07/14/2023 07/29/2023 09/29/2023 10/12/2023 10/26/2023 BP AND WT. Systolic 124 128 126 144 140 120 136 Systolic 147 154 Systolic 126 Systolic 124 Diastolic 70 72 78 60 68 60 76 Diastolic 67 88 Diastolic 60 Diastolic 76 Weight 123 lb 124 lb 120 lb 118 lb 120 lb 117 lb Height 61 in 61 in 61 in Pulse 80 84 82 77 Pulse 73 Pulse 70 Pulse 86 11/17/2023 11/24/2023 12/17/2023 01/10/2024 02/14/2024 BP AND WT. Systolic 128 140 136 132 144 Diastolic 60 70 84 70 68 Weight 113 lb 6.4 oz 115 lb 112 lb 3.2 oz 113 lb 9.6 oz 110 lb Height 63 in 63 in Pulse 76 79 76 Physical Exam: General: alert,and no distress Culture Growth >100,000 colonies/mL Enterococcus species Abnormal <10,000 colonies/ml mixed normal ana Resulting Agency: Susceptibility Enterococcus species [employer] Ampicillin Susceptible Nitrofurantoin Resistant Tetracycline Susceptible Vancomycin Susceptible ASSESSMENT/PLAN: Acute cystitis with hematuria (Primary) - CULTURE, URINE, QUANTITATIVE - Cephalexin 500 MG Oral Capsule; Take 1 Capsule by mouth in the morning and 1 Capsule before bedtime. Do all this for 10 days. reviewed appropriate use, benefits, risks, side effects and alternatives. 20 min spent with patient, reviewing history, performing physical exam, reviewing labs, studies, specialist OVNs, and reports, educating and coordinating care, discussing treatment, and completing note Charissa Heart DO documented in this encounter Nursing Notes * Lynette Pate LPN - 02/14/2024 4:24 PM EDT Rachel Garcia presents with complaints of increased confusion. States she gets like this when shehas a UTI. documented in this encounter Plan of Treatment Upcoming Encounters Date Type Department Care Team (Late st Contact Info) Description 03/16/2024 11:30 AM EDT Office Visit Gynecology/Obstetrics [facility] [address] [place] [address] Ny Mccracken CRNP [address] [place] [address] 03/16/2024 3:45 PM EDT Office Visit Dermatology [facility] [address] [facility] [place] [address] Qian Dorman MD [address] [facility] [place] [address] 04/13/2024 3:00 PM EDT Office Visit Ophthalmology, [facility] [address] [place] [address] Mina Christiansen, [address] [place] [address] 05/23/2024 2:40 PM EST Office Visit Family Practice [facility] [address] [facility] [place] [address] Sussy Zhu PA-C [address] [facility] [place] [address] Scheduled Orders Name Type Priority Associated Diagnoses Orde r Schedule CULTURE, URINE, QUANTITATIVE Lab Routine Acute cystitis with hematuria Ordered: 02/14/2024 Health Maintenance Due Date Last Done Comments [...] D LEVEL ONCE IN A LIFETIME-USE SMARTSET# 83060 Completed 03/15/2006 Pneumococcal Vaccine: 65+ Years Completed [...] this encounter Medical Devices Implanted Type Area Fire Official Device Identifier Shelf Expiration Date Model / Serial / Lot Lens 23.5 M160l - [id number] - [id number] Implanted:Qty: 1 on 10/03/2015 by Arnol Auguste MD at OR [facility] Left: Eye BAUSCH & LOMB : SURGICAL 11/25/2016 [id number]-27.5 / [id number] / [id number] Lens Intraoc 23.0 - [id number] - [id number] Implanted:Qty: 1 on 06/04/2016 by Flakito Sorto MD at OR [facility] Right: Eye BAUSCH & LOMB 11/25/2020 [id number] / [id number] / documented as of this encounter Visit Diagnoses Diagnosis Acute cystitis with hematuria- Primary Acute cystitis documented in this encounter Advance Directives * [...] Agents on File Name Relationship Healthcare Agent [facility] p Communication Juan Garcia Adult Child Health Care Agesamantha t (per Health Care Power of Metal Mover document) Care Teams Dramatic Coach Relationship Specialty Start Date End Date MarkoSeptember Ptio, PAToniaC [address] [place], [place] [address] PCP - General Physician Lock Stitch Channeler 01/10/24 documented as of this encounter"
--- OUTSIDE RECORDS SUMMARY | 2024-04-18 02:11 | External Medical Summary | Summary of Care ---
Author Name Unknown Organization [facility] Address [address] [facility] [place] [address] Phone [phone] Care Team Providers Care Shake Table Operator Name Role Phone Sussy Zhu Pito WHITT Primary Care Provider [phone] Reason for Visit * Reason Comments Follow Up 6-8 week follow up Encounter Details Date Type Department Care Team (Late st Contact Info) Description 02/29/2024 11:30 AM EDT Office Visit Ophthalmology, [facility] [address] [place] [address] Mina Christiansen, [address] [place] [address] Exudative age-related macular degeneration of right eye [...] gene variant (c.1783 C>T, p.(R595W)) detected via [employer]. Increased risk for Familial hypercholesterolemia (FH). Please [...] - 02/29/2024 11:30 AM EDT [facility] [place] Nursing Notes: [...] 22um prior worse, prior improved 29um, prior [id number], prior STABLE, prior no sig change, prior [...] Mina Christiansen DO Vabysmo 6mg lot # [id number] Exp. Date: 08/2025 * Tamar Cunha LPN [...] 03/16/2024 11:30 AM EDT Office Visit Gynecology/Obstetrics [facility] [address] [place] [address] [place] Mccracken CRNP [address] [place] [address] 03/16/2024 3:45 PM EDT Office Visit Dermatology [place], [place] [address] [place] [address] Qian Dorman MD [address] [facility] [place] [address] 05/23/2024 2:40 PM EST Office Visit Family Practice [facility] [address] [facility] [place] [address] Sussy Zhu PA-C [address] [facility] [place] [address] Scheduled Orders Name Type Priority Associated Diagnoses [...] D LEVEL ONCE IN A LIFETIME-USE SMARTSET# 52781 Completed 03/15/2006 Pneumococcal Vaccine: 65+ Years Completed 05/21/2014, 05/05/2006 *BISPHONATE OR OTHER ACCEPTABLE MEDICATION NEEDED FOR OSTEOPOROSIS (REFER TO SMARTSET #0896) Addressed 06/29/2017 (Refused) Overridden wi th the [...] this encounter Medical Devices Implanted Type Area Barrel Bander Device Identifier Shelf Expiration Date Model / Serial / Lot Lens 23.5 M160l - [id number] - [id number] Implanted:Qty: 1 on 10/03/2015 by Arnol Auguste MD at OR [facility] Left: Eye BAUSCH & LOMB : SURGICAL 11/25/2016 FY02I-44.5 / [id number] / [id number] Lens Intraoc 23.0 - [id number] - [id number] Implanted:Qty: 1 on 06/04/2016 by Flakito Sorto MD at OR [facility] Right: Eye BAUSCH & LOMB 11/25/2020 [id number] / [id number] / documented as of this encounter Visit [...] Phuc t (per Health Care Power of New Accounts Clerk document) Care Teams Shake Table Operator Relationship Specialty Start Date End Date Marko September PERI Sheldon [address] [facility] [place] [address] PCP - General Physician Policy Adviser 01/10/24 documented as of this encounter
--- OUTSIDE RECORDS SUMMARY | 2024-04-18 02:11 | External Medical Summary ---
Author Name Unknown Address Unknown Organization K01:[facility] - [address] [place] [id number] Laboratory Report Ordering Provider Test Date Status 02/17/2024 14:48:27 Final Observation Date Value Abnormality Reference (Units) Status Bacteria identified in Specimen by Culture 02/17/2024 14:48:27 No significant growth Final Test: Culture, Urine, Quanti tative
Specimen Source: Urine, Clean Catch
Specimen Type: Urine
Specimen Date: 02/17/2024 1448
Result Date: 02/18/2024 1653
Result Status: Final result
Resulting Lab: [facility]
[address]
[place] [id number]

CULTURE

No significant growth

null Performing Location [facility] - [address] [facility] [address]
--- OUTSIDE RECORDS SUMMARY | 2024-04-18 02:11 | External Medical Summary | Summary of Care ---
Author Name Unknown Organization [facility] Address [address] [facility] [place] [address] Phone [phone] Care Team Providers Care Systems Consultant Name Role Phone Sussy Zhu Pito WHITT Primary Care Provider [phone] Reason for Visit * Reason Comments Follow Up 6-8 week follow up Encounter Details Date Type Department Care Team (Late st Contact Info) Description 02/29/2024 11:30 AM EDT Office Visit Ophthalmology, [facility] [address] [place] [address] Jens Christiansen, [address] [place] [address] Exudative age-related macular degeneration of right eye [...] gene variant (c.1783 C>T, p.(R595W)) detected via [employer]. Increased risk for Familial hypercholesterolemia (FH). Please [...] mRNA, LNP-s, No Pre serve, 2-Dose Series ([employer]) 10/01/2021,04/07/2021,09/14/2020,07/30 COVID-19, LNP-s, No Preserve , Yimi-sucrose, [...] - 02/29/2024 11:30 AM EDT [facility] [place] Nursing Notes: [...] 22um prior worse, prior improved 29um, prior [id number], prior STABLE, prior no sig change, prior [...] Jens Christiansen DO Vabysmo 6mg lot # [id number] Exp. Date: 08/2025 * Tamar Cunha LPN [...] 03/16/2024 11:30 AM EDT Office Visit Gynecology/Obstetrics [facility] [address] [place] [address] Ny Mccracken CRNP [address] [place] [address] 03/16/2024 3:45 PM EDT Office Visit Dermatology [facility] [address] [facility] [place] [address] Qian Dorman MD [address] [facility] [place] [address] 04/13/2024 3:00 PM EDT Office Visit Ophthalmology, [facility] [address] [place] [address] Jens Christiansen DO [address] [place] [address] 05/23/2024 2:40 PM EST Office Visit Family Practice [facility] [address] [facility] [place] [address] Sussy Zhu PA-C [address] [facility] [place] [address] Scheduled Orders Name Type Priority Associated Diagnoses [...] Tdap) 06/30/2023 06/30/2013, 06/30/2005, 06/30/2005 COVID-19 Vaccine (6 - 2023-24 season) 2024 04/04/2022, 10/01/2021, 04/07/2021, Additional history exists Influenza Vaccine (FLU shot) (#1) 2024 03/24/2023, 04/13/2022, 03/11/2021, Additional history exists Albumin/Creatinine Ratio 09/11/2024 09/11/2021 Depression Screening 12/14/2024 12/15/2023, 06/29/2017 (Discussed) GFR 02/13/2025 02/14/2024, 08/2022, 09/17/2022, Additional history exists VITAMIN D LEVEL ONCE IN A LIFETIME-USE SMARTSET# 66980 Completed 03/15/2006 Pneumococcal Vaccine: 65+ Years Completed [...] this encounter Medical Devices Implanted Type Area Service Delivery Director Device Identifier Shelf Expiration Date Model / Serial / Lot Lens 23.5 M160l - [id number] - [id number] Implanted:Qty: 1 on 10/03/2015 by Arnol Auguste MD at OR [facility] Left: Eye BAUSCH & LOMB : SURGICAL 11/25/2016 [id number]-66.5 / [id number] / [id number] Lens Intraoc 23.0 - [id number] - [id number] Implanted:Qty: 1 on 06/04/2016 by Flakito Sorto MD at OR [facility] Right: Eye BAUSCH & LOMB 11/25/2020 [id number] / [id number] / documented as of this encounter Visit [...] the treatment of a single eye. Given 02/29/2024 1:04 PM EDT 6 mg Eye Right Given 01/04/2024 1:35 PM EDT 6 mg Ey e Right Given 11/30/2023 11:01 AM EDT 6 mg E ye Right ROPivacaine (Naropin) inj 1.5 mg 1.5 mg, Injection, PRN Pain, Mild, Starting on 02/29/24 at 1216, Until Wed02/28/25 at 1215, For 365 days Given 02/29/2024 1:04 PM EDT 1.5 mg Eye Right documented in this encounter Advance Directives [...] Agents on File Name Relationship Healthcare Agent [facility] p Communication Juan Gracia Adult Child Health Care Phuc t (per Health Care Power of Bag Filler document) Care Teams Systems Consultant Relationship Specialty Start Date End Date MarkoSeptember PERI Sheldon [address] [place] [address] PCP - General Physician Network Security Officer 01/10/24 documented as of this encounter
--- OUTSIDE RECORDS SUMMARY | 2024-04-18 02:11 | External Medical Summary | Summary of Care ---
Author Name Unknown Organization [facility] Address [address] [facility] [place] [address] Phone [phone] Care Team Providers Care Customer Complaint Service Supervisor Name Role Phone Sussy Zhu Pito WHITT Primary Care Provider [phone] Reason for Visit * Reason Comments Follow Up 6-8 week follow up Encounter Details Date Type Department Care Team (Late st Contact Info) Description 02/29/2024 11:30 AM EDT Office Visit Ophthalmology, [facility] [address] [place] [address] Mina Christiansen, [address] [place] [address] Exudative age-related macular degeneration of right eye [...] gene variant (c.1783 C>T, p.(R595W)) detected via [employer]. Increased risk for Familial hypercholesterolemia (FH). Please [...] - 02/29/2024 11:30 AM EDT [facility] [place] Nursing [...] 22um prior worse, prior improved 29um, prior [id number], prior STABLE, prior no sig change, prior [...] Mina Christiansen DO Vabysmo 6mg lot # [id number] Exp. Date: 08/2025 * Tamar Cunha LPN [...] 03/16/2024 11:30 AM EDT Office Visit Gynecology/Obstetrics [facility] [address] [place] [address] [place] Mccracken CRNP [address] [place] [address] 03/16/2024 3:45 PM EDT Office Visit Dermatology [place], [place] 200 [place] [address] Qian Dorman MD [address] [facility] [place] [address] 05/23/2024 2:40 PM EST Office Visit Family Practice [facility] [address] [facility] [place] [address] Sussy Zhu PA-C [address] [facility] [place] [address] Scheduled Orders Name Type Priority Associated Diagnoses [...] D LEVEL ONCE IN A LIFETIME-USE SMARTSET# 13625 Completed 03/15/2006 Pneumococcal Vaccine: 65+ Years Completed 05/21/2014, 05/05/2006 *BISPHONATE OR OTHER ACCEPTABLE MEDICATION NEEDED FOR OSTEOPOROSIS (REFER TO SMARTSET #9586) Addressed 06/29/2017 (Refused) Overridden wi th the [...] this encounter Medical Devices Implanted Type Area Picture Frames Inspector Device Identifier Shelf Expiration Date Model / Serial / Lot Lens 23.5 M160l - [id number] - [id number] Implanted:Qty: 1 on 10/03/2015 by Arnol Auguste MD at OR [facility] Left: Eye BAUSCH & LOMB : SURGICAL 11/25/2016 [id number]-10.5 / [id number] / [id number] Lens Intraoc 23.0 - [id number] - [id number] Implanted:Qty: 1 on 06/04/2016 by Flakito Sorto MD at OR [facility] Right: Eye BAUSCH & LOMB 11/25/2020 [id number] / [id number] / documented as of this encounter Visit [...] Phuc t (per Health Care Power of Physical Education Department Chair document) Care Teams Customer Complaint Service Supervisor Relationship Specialty Start Date End Date Marko September PERI Sheldon [address] [facility] [place] [address] PCP - General Physician Informatics Analyst 01/10/24 documented as of this encounter
--- OUTSIDE RECORDS SUMMARY | 2024-04-18 02:11 | External Medical Summary | Summary of Care ---
Author Name Unknown Organization [facility] Address [address] [facility] [place] [address] Phone [phone] Care Team Providers Care Children'S Counselor Name Role Phone Sussy Zhu Pito WHITT Primary Care Provider [phone] Reason for Visit * Reason Comments Follow Up 6-8 week follow up Encounter Details Date Type Department Care Team (Late st Contact Info) Description 02/29/2024 11:30 AM EDT Office Visit Ophthalmology, [facility] [address] [place] [address] Jens Christiansen, [address] [place] [address] Exudative age-related macular degeneration of right eye [...] gene variant (c.1783 C>T, p.(R595W)) detected via [employer]. Increased risk for Familial hypercholesterolemia (FH). Please [...] mRNA, LNP-s, No Pre serve, 2-Dose Series ([employer]) 10/01/2021,04/07/2021,09/14/2020,07/30 COVID-19, LNP-s, No Preserve , Yimi-sucrose, [...] of this encounter Progress Notes * Jens Crhistiansen, DO - 02/29/2024 11:30 AM EDT [facility] [place] Nursing [...] 22um prior worse, prior improved 29um, prior [id number], prior STABLE, prior no sig change, prior [...] Jens Christiansen DO Vabysmo 6mg lot # [id number] Exp. Date: 08/2025 * Tamar Cunha LPN [...] 03/16/2024 11:30 AM EDT Office Visit Gynecology/Obstetrics [facility] [address] [place] [address] Ny Mccracken CRNP [address] [place] [address] 03/16/2024 3:45 PM EDT Office Visit Dermatology [facility] [address] [facility] [place] [address] Qian Dorman MD [address] [facility] [place] [address] 04/13/2024 3:00 PM EDT Office Visit Ophthalmology, [facility] [address] [place] [address] Jens Christiansen DO [address] [place] [address] 05/23/2024 2:40 PM EST Office Visit Family Practice [facility] [address] [facility] [place] [address] Sussy Zhu PA-C [address] [facility] [place] [address] Scheduled Orders Name Type Priority Associated Diagnoses [...] D LEVEL ONCE IN A LIFETIME-USE SMARTSET# 28335 Completed 03/15/2006 Pneumococcal Vaccine: 65+ Years Completed [...] this encounter Medical Devices Implanted Type Area Chief Ii Dispatcher Device Identifier Shelf Expiration Date Model / Serial / Lot Lens 23.5 M160l - [id number] - [id number] Implanted:Qty: 1 on 10/03/2015 by Arnol Auguste MD at OR [facility] Left: Eye [employer]USCH [employer] LOMB : SURGICAL 11/25/2016 [id number]-31.5 / [id number] / [id number] Lens Intraoc 23.0 - [id number] - [id number] Implanted:Qty: 1 on 06/04/2016 by Flakito Sorto MD at OR [facility] Right: Eye BAUSCH [employer] LOMB 11/25/2020 [id number] / [id number] / documented as of this encounter Visit [...] Agents on File Name Relationship Healthcare Agent [facility] Communication Juan Garcia Adult Child Health Care Agen t (per Health Care Power of Rolfer document) Care Teams Children'S Counselor Relationship Specialty Start Date End Date Marko September PERI Sheldon [address] [place], [place] [address] PCP - General Physician Mechanical Ordnance Assembler 01/10/24 documented as of this encounter
--- OUTSIDE RECORDS SUMMARY | 2024-04-18 02:12 | External Medical Summary ---
Author Name Unknown Address Unknown Organization K09:[facility] [address] [place] [address] Laboratory Report Ordering Provider Test Date Status CARROL BARNES 02/14/2024 09:32:19 Final Observation Date Value Abnormality Reference (Units ) Status BUN 02/14/2024 09:32:19 22 Above high normal 6-20 (mg/dL) Final Creatinine 02/14/2024 09:32:19 0.7 0.5-1.0 (mg/dL) Final Glomerular filtration rate/1.73 sq M.predicted [Volume Rate/Area] in Serum, Plasma or Blood by Creatinine-based formula (CKD-EPI) 02/14/2024 09:32:19 87 >=60 (mL/min) Final eGFR is calculated based on the CKD-EPI 2020 equation. Sodium 02/14/2024 09:32:19 138 135-146 (m mol/L) Final Potassium 02/14/2024 09:32:19 4.5 3.5-5.1 (m mol/L) Final Cl 02/14/2024 09:32:19 101 98-107 (mm ol/L) Final CO2 02/14/2024 09:32:19 25 22-32 (mmo l/L) Final Anion gap 02/14/2024 09:32:19 12 7-15 (mmol /L) Final Glucose 02/14/2024 09:32:19 104 70-120 (mg /dL) Final Albumin 02/14/2024 09:32:19 4.0 3.8-5.0 (g /dL) Final AST (Aspartate aminotransferase) 02/14/2024 09:32:19 32 10-35 (U/L) Final Alk Phos 02/14/2024 09:32:19 80 35-130 (U/ L) Final Bilirubin, Total 02/14/2024 09:32:19 0.6 <=1 .2 (mg/dL) Final Calcium 02/14/2024 09:32:19 9.6 8.4-10.2 ( mg/dL) Final Protein 02/14/2024 09:32:19 7.5 6.0-8.3 (g /dL) Final ALT (Alanine aminotransferase) 02/14/2024 09:32:19 19 10-35 (U/L) Final Performing Location [facility] [address] [place] [address]
--- OUTSIDE RECORDS SUMMARY | 2024-04-18 02:12 | External Medical Summary | Summary of Care ---
Author Name Unknown Organization [facility] Address [address] [facility] [place] [address] Phone [phone] Care Team Providers Care Plaster Mixer Name Role Phone Sussy Zhu PERI Primary Care Provider [phone] Encounter Details Date Type Department Care Team (Late st Contact Info) Description 02/16/2024 Orders Only PATIENT PORTAL DO NOT DELETE THIS DEPT USED BY [place] [id number] Allergies Active Allergy Reactions Criticality Noted Date Comments Sulfamethoxazole-Trimethopri m 01/03/2020 nausea Penicillins 03/23/2000 rash Trimethoprim High 04/01/2021 Other reaction(s): Nausea documented as of this encounter (statuses as of 02/16/2024) Medications Medication Sig Dispensed Refills Start Date [...] as of this encounter (statuses as of 02/16/2024) Active Problems Problem Noted Date Diagnosed Date Bronchospasm, exercise-induced 11/17/2023 Spinal enthesopathy, cervical region 07/14/2023 Bilateral nonexudative age-related macular degen eration 05/19/2023 Degenerative disc disease, cervical 09/09/2022 Hyperlipidemia 09/09/2022 History of 2019 novel coronavirus disease (COVID -19) 06/10/2022 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 Increased risk for Familial hypercholesterolemia (FH). Please [...] as of this encounter (statuses as of 02/16/2024) Resolved Problems Problem Noted Date Diagnosed Date [...] as of this encounter (statuses as of 02/16/2024) Immunizations Name Administration Dates Next Due COVID-19 mRNA, LNP-s, No Pre serve, 2-Dose Series ([employer]) 10/01/2021,04/07/2021,09/14/2020,08/24 COVID-19, LNP-s, No Preserve , Yimi-sucrose, [...] on file documented as of this encounter Plan of Treatment Upcoming Encounters Date Type Department Care Team (Late st Contact Info) Description 02/17/2024 2:00 PM EDT Office Visit Family Practice [facility] [address] [place] [address] [place] [address] Sussy Zhu PA-C [address] [facility] [place], [place] [address] 02/29/2024 11:30 AM EDT Office Visit Ophthalmology, [facility] [address] [place] [address] Mina Christiansen DO [address] [place] [address] 03/16/2024 11:30 AM EDT Office Visit Gynecology/Obstetrics [facility] [address] [place] [address] Ny Mccracken CRNP [address] [place] [address] 03/16/2024 3:45 PM EDT Office Visit Dermatology [facility] [address] [facility] [place] [address] Qian Dorman MD [address] [facility] [place] [address] Health Maintenance Due Date Last Done Comments [...] D LEVEL ONCE IN A LIFETIME-USE SMARTSET# 29396 Completed 03/15/2006 Pneumococcal Vaccine: 65+ Years Completed [...] this encounter Medical Devices Implanted Type Area Flight Line Service Attendant Device Identifier Shelf Expiration Date Model / Serial / Lot Lens 23.5 M160l - [id number] - [id number] Implanted:Qty: 1 on 10/03/2015 by Arnol Auguste MD at OR [facility] Left: Eye BAUSCH [employer] LOMB : SURGICAL 11/25/2016 [id number]-94.5 / [id number] / [id number] Lens Intraoc 23.0 - [id number] - [id number] Implanted:Qty: 1 on 06/04/2016 by Flakito Sorto MD at OR [facility] Right: Eye BAUSCH [employer] LOMB 11/25/2020 [id number] / [id number] / documented as of this encounter Advance [...] Agen t (per Health Care Power of Wine Blender document) Care Teams Plaster Mixer Relationship Specialty Start Date End Date Marko Sussy Pito, ARIESC [facility] [address] [place] [address] PCP - General Physician Helper Animal Laboratory 01/10/24 documented as of this encounter
--- OUTSIDE RECORDS SUMMARY | 2024-04-18 02:12 | External Medical Summary ---
Author Name Unknown Address Unknown Organization [facility] [address] [place] [address] Laboratory Report Ordering Provider Test Date Status CARROL BARNES 02/04/2024 15:08:34 Final Observation Date Value Abnormality Reference (Units ) Status Color of Urine by Auto 02/04/2024 15:08:34 Yellow Light Yellow, Yellow, Dark Yellow Final Clarity, Urine 02/04/2024 15:08:34 Clear Clear Final Glucose [Mass/volume] in Urine by Automated test strip 02/04/2024 15:08:34 Negative Negative (mg/dL) Final Bilirubin.total [Presence] in Urine by Automated test strip 02/04/2024 15:08:34 Negative Negative Final Ketones [Mass/volume] in Urine by Automated test strip 02/04/2024 15:08:34 Negative Negative (mg/dL) Final Specific gravity, Urine 02/04/2024 15:08:34 1.015 1.003-1.030 Final Hemoglobin [Presence] in Urine by Automated test strip 02/04/2024 15:08:34 Trace Abnormal Negative Final pH, Urine 02/04/2024 15:08:34 5.5 5.0-7.5 (Units) Final Protein [Mass/volume] in Urine by Automated test strip 02/04/2024 15:08:34 Negative Negative (mg/dL) Final Urobilinogen [Mass/volume] in Urine by Automated test strip 02/04/2024 15:08:34 0.2 0.2, 1.0 (mg/dL) Final Nitrite [Presence] in Urine by Automated test strip 02/04/2024 15:08:34 Negative Negative Final Leukocyte esterase [Presence] in Urine by Automated test strip 02/04/2024 15:08:34 Small Abnormal Negative Final Performing Location [facility] [address] [place] [address]
--- OUTSIDE RECORDS SUMMARY | 2024-04-18 02:12 | External Medical Summary ---
Author Name Unknown Address Unknown Organization K09:[facility] [address] [place] [address] Laboratory Report Ordering Provider Test Date Status MIRYAM BARNESUrvashi 02/14/2024 10:07:47 Final Observation Date Value Abnormality Reference (Units ) Status RBC, Urine 02/14/2024 10:07:47 0-2 0-2 (/HPF) Final WBC, Urine 02/14/2024 10:07:47 10-19 Abnormal 0-2 (/HPF) Final Bacteria [#/area] in Urine sediment by Microscopy high power field 02/14/2024 10:07:47 51-100 Abnormal 0-25 (/HPF) Final Performing Location [facility] [place] [address]
--- OUTSIDE RECORDS SUMMARY | 2024-04-18 02:12 | External Medical Summary ---
Author Name Unknown Address Unknown Organization [facility] [address] [place] [address] Laboratory Report Ordering Provider Test Date Status MIRYAM BARNESUrvashi 02/04/2024 15:08:34 Final Observation Date Value Abnormality Reference (Units ) Status RBC, Urine 02/04/2024 15:08:34 0-2 0-2 (/HPF) Final WBC, Urine 02/04/2024 15:08:34 20-29 Abnormal 0-2 (/HPF) Final Bacteria [#/area] in Urine sediment by Microscopy high power field 02/04/2024 15:08:34 26-50 Abnormal 0-25 (/HPF) Final Performing Location [facility] [place] [address]
--- OUTSIDE RECORDS SUMMARY | 2024-04-18 02:12 | External Medical Summary ---
Author Name Unknown Address Unknown Organization [facility] [address] Laboratory Report Ordering Provider Test Date Status 02/14/2024 09:32:19 Final Observation Date Value Abnormality Reference (Units ) Status WBC, Total 02/14/2024 09:32:19 7.79 4.00-10.8 0 (K/uL) Final RBC 02/14/2024 09:32:19 4.31 3.85-5.15 (M/uL) Final Hemoglobin 02/14/2024 09:32:19 13.1 12.0-15.3 (g/dL) Final HCT 02/14/2024 09:32:19 40.5 36.0-45.2 (%) Final MCV 02/14/2024 09:32:19 94.0 81.5-97.5 (fL) Final MCH 02/14/2024 09:32:19 30.4 27.0-34.0 (pg) Final MCHC 02/14/2024 09:32:19 32.3 32.0-36.0 (g/dL) Final RDW 02/14/2024 09:32:19 14.0 11.5-15.5 (%) Final Platelets 02/14/2024 09:32:19 199 140-400 (K /uL) Final MPV 02/14/2024 09:32:19 9.8 6.6-11.1 ( fL) Final Performing Location [facility] [place] [address]
--- OUTSIDE RECORDS SUMMARY | 2024-04-18 02:12 | External Medical Summary | Summary of Care ---
Author Name Unknown Organization [facility] Address [address] [facility] [address] Phone [phone] Care Team Providers Care Health Program Specialist Name Role Phone Sussy Zhu PERI Primary Care Provider [phone] Reason for Visit * Reason Comments Outpatient Testing Encounter Details Date Type Department Care Team (Late st Contact Info) Description 02/14/2024 10:30 AM EDT Laboratory Laboratory [facility] [place] [address] [place] [id number] [place], [facility] [address] [place] [address] Lightheaded; DYSLIPIDEMIA, GOAL TO BE DETERMINED; Recurrent UTI Allergies Active Allergy Reactions Criticality Noted Date Comments Sulfamethoxazole-Trimethopri m 01/03/2020 nausea Penicillins 03/23/2000 rash Trimethoprim High 04/01/2021 Other reaction(s): Nausea documented as of this encounter (statuses as of 02/14/2024) Medications Medication Sig Dispensed Refills Start Date [...] 04/01/2023 Active Ondansetron HCl 4 MG Oral TabletIndications :Nausea without vomiting Take 1 Tablet by mouth every 6 hours as needed for Nausea. 30 Tablet 5 07/21/2023 Active Additional Information Patient not taking.Reported on 01/10/2024 Albuterol Sulfate HFA 108 (90 Base) MCG/ACT [...] the morning. 90 Tablet 3 12/17/2023 Active Doxycycline Hyclate 100 MG Oral Capsule Take 1 Capsule by mouth in the morning and 1 Capsule before bedtime. Do all this for 7 days. Take for 7 days. 14 Capsule 02/08/2024 02/15/2024 Active Hospital, Clinic, or Other Facility Administered Medication Ordered Dose Route Frequency Start Date End Date Status Faricimab-svoa (Vabysmo) intravitreal inj 6 mgIndications:Exudative age-related macular degeneration of right eye with active choroidal neovascularization (HCC) 6 mg IZ PRN 07/08/2023 07/07/2024 Active documented as of this encounter (statuses as of 02/14/2024) Active Problems Problem Noted Date Diagnosed Date Bronchospasm, exercise-induced 11/17/2023 Spinal enthesopathy, cervical region 07/14/2023 Bilateral nonexudative age-related macular degen eration 05/19/2023 Degenerative disc disease, cervical 09/09/2022 Hyperlipidemia 09/09/2022 History of 2019 novel coronavirus disease (COVID -19) 06/10/2022 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 Increased risk for Familial hypercholesterolemia (FH). [...] as of this encounter (statuses as of 02/14/2024) Resolved Problems Problem Noted Date Diagnosed Date [...] as of this encounter (statuses as of 02/14/2024) Immunizations Name Administration Dates Next Due COVID-19 mRNA, LNP-s, No Pre serve, 2-Dose Series ([employer]) 10/01/2021,04/07/2021,09/14/2020,07/30 COVID-19, LNP-s, No Preserve , Yimi-sucrose, [...] Description 02/14/2024 4:20 PM EDT Office Visit [facility] [address] [place] [address] Charissa Heart DO [address] [facility] [place] [address] 02/17/2024 2:00 PM EDT Office Visit [facility] [address] [place] [address] Sussy Zhu PA-C [address] [facility] [place] [address] 02/29/2024 11:30 AM EDT Office Visit Ophthalmology, [facility] [address] [place] [address] Mina Christiansen DO [address] [place] [address] 03/16/2024 11:30 AM EDT Office Visit Gynecology/Obstetrics [facility] [address] [place] [address] Ny Mccracken CRNP [address] [place] [address] 03/16/2024 3:45 PM EDT Office Visit Dermatology [facility] [address] [place] [address] Qian Dorman MD 200 [facility] [place] [address] Pending Results Name Type Priority Associated Diagnoses Date /Time CBC Lab Routine Lightheaded 02/14/2024 9:32 AM EDT LIPID PANEL WITH DIRECT LDL IF TG IS HIGH Lab Routine DYSLIPIDEMIA, GOAL TO BE DETERMINED 02/14/2024 9:32 AM EDT COMPREHENSIVE METABOLIC PANEL Lab Routine DYSLIPIDEMIA, GOAL TO BE DETERMINED 02/14/2024 9:32 AM EDT URINALYSIS, REFLEX TO MICROSCOPIC Lab Routine Recurrent UTI 02/14/2024 10:07 AM EDT CULTURE, URINE, QUANTITATIVE Lab Routine Recurrent UTI 02/14/2024 10:07 AM EDT Health Maintenance Due Date Last Done Comments Adult Wellness Visit 12/24/2005 DXA Scan 04/30/2016 04/30/2014, 03/29, 04/18/2012, Additional history exists COVID-19 Vaccine ( season) 2023 04/04/2022, 10/01/2021, 04/07/2021, Additional history exists DTaP,Tdap,and Td Vaccines (2 - Td or Tdap) 06/30/2023 06/30/2013, 06/30/2005, 06/30/2005 Influenza Vaccine (FLU shot) (#1) 2024 03/24/2023, 04/13/2022, 03/11/2021, Additional history exists GFR 03/30/2024 03/30/2023, 08/27, 08/14/2022, Additional history exists Albumin/Creatinine Ratio 09/11/2024 09/11/2021 Depression Screening 12/14/2024 12/15/2023, 06/29/2017 (Discussed) VITAMIN D LEVEL ONCE IN A LIFETIME-USE SMARTSET# 69219 Completed 03/15/2006 Pneumococcal Vaccine: 65+ Years Completed 05/21/2014, 05/05/2006 *BISPHONATE OR OTHER ACCEPTABLE MEDICATION NEEDED FOR OSTEOPOROSIS (REFER TO SMARTSET #6031) Addressed 06/29/2017 (Refused) Overridden wi th the [...] this encounter Medical Devices Implanted Type Area Border Inspector Device Identifier Shelf Expiration Date Model / Serial / Lot Lens 23.5 M160l - [id number] - [id number] Implanted:Qty: 1 on 10/03/2015 by Arnol Auguste MD at OR [facility] Left: Eye [employer] LOM[employer] : SURGICAL 11/25/2016 [id number]-31.5 / [id number] / [id number] Lens Intraoc 23.0 - [id number] - [id number] Implanted:Qty: 1 on 06/04/2016 by Flakito Sorto MD at OR [facility] Right: Eye [employer]CH [employer] LOMB 11/25/2020 [id number] / [id number] / documented as of this encounter Visit Diagnoses Diagnosis Lightheaded Dizziness and giddiness DYSLIPIDEMIA, GOAL TO BE DETERMINED Other and unspecified hyperlipidemia Recurrent UTI Urinary tract infection, site not specified documented in this encounter Advance Directives * [...] Juan Garcia Adult Child Health Care Phuc chiang (per Health Care Power of Aged Or Disabled Carer document) Care Teams Health Program Specialist Relationship Specialty Start Date End Date Marko September PERI Sheldon [facility] [address] [place] [address] PCP - General Physician Supplier Quality Specialist 01/10/24 documented as of this encounter
--- OUTSIDE RECORDS SUMMARY | 2024-04-18 02:12 | External Medical Summary | Summary of Care ---
Author Name Unknown Organization [facility] Address [address] [facility] [place] [address] Phone [phone] Care Team Providers Care End Finder Twisting Department Name Role Phone Sussy Zhu PA-C Primary Care Provider [phone] Reason for Visit * Reason Onset Date Comments Medication Refill 02/07/2024 Encounter Details Date Type Department Care Team (Late st Contact Info) Description 02/07/2024 Telephone Family Practice [facility] [address] [facility] [place] [address] Sussy Zhu PA-C [address] [facility] [place] [address] Medication Refill Allergies Active Allergy Reactions Criticality Noted Date Comments Sulfamethoxazole-Trimethopri m 01/03/2020 nausea Penicillins 03/23/2000 rash Trimethoprim High 04/01/2021 Other reaction(s): Nausea documented as of this encounter (statuses as of 02/08/2024) Medications Medication Sig Dispensed Refills Start Date [...] Take for 7 days. 14 Capsule 02/08/2024 Active Nitrofurantoin Monohyd Macro 100 MG Oral Capsule (Macrobid) Take 1 Capsule by mouth in the morning and 1 Capsule before bedtime. Do all this for 7 days. With food until gone. 14 Capsule 12/29/2023 Discontinue d(Medicatio n List Clean Up) Hospital, Clinic, or Other Facility Administered Medication Ordered Dose Route Frequency Start Date End Date Status Faricimab-svoa (Vabysmo) intravitreal inj 6 mgIndications:Exudative age-related macular degeneration of right eye with active choroidal neovascularization (HCC) 6 mg IZ PRN 07/08/2023 07/07/2024 Active documented as of this encounter (statuses as of 02/08/2024) Active Problems Problem Noted Date Diagnosed Date Bronchospasm, exercise-induced 11/17/2023 Spinal enthesopathy, cervical region 07/14/2023 Bilateral nonexudative age-related macular degen eration 05/19/2023 Degenerative disc disease, cervical 09/09/2022 Hyperlipidemia 09/09/2022 History of 2019 novel coronavirus disease (COVID -19) 06/10/2022 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 Increased risk for Familial hypercholesterolemia (FH). Please [...] as of this encounter (statuses as of 02/08/2024) Resolved Problems Problem Noted Date Diagnosed Date [...] as of this encounter (statuses as of 02/08/2024) Immunizations Name Administration Dates Next Due COVID-19 mRNA, LNP-s, No Pre serve, 2-Dose Series ([employer]) 10/01/2021,04/07/2021,09/14/2020,08/24 COVID-19, LNP-s, No Preserve , [...] encounter Miscellaneous Notes * Telephone Encounter - Lynette Pate LPN - 02/08/2024 4:20 PM EDT Patient called and made aware script was sent. * Telephone Encounter - Sussy Zhu PA-C - 02/08/2024 3:26 PM EDT Lab was ordered by Dr. Barak Lynn in my absence. Upon review, patient does have urinary tract infection. Prescription was sent to [facility]. Please inform her. * Telephone Encounter - Michelle Villela LPN - 02/08/2024 10:48 AM EDT Spoke with patient, she stated that she saw her results on [facility] but unsure what they mean, asking for September to review. Culture did grow out bacteria, see below. Culture Growth 02/04/2024 >100,000 colonies/mL Enterococcus species Abnormal Please advise, Pharmacy selected. * Telephone Encounter - Shala Holloway OSA - 02/08/2024 10:45 AM EDT Reason for patient's call: lab results Caller was transferred to Michelle at the nurse line. * Telephone Encounter - More Amezquita OSA - 02/08/2024 8:15 AM EDT Pt calling to follow up on test results for UTI, please see below. Pt would like to know if there is going to be antibiotic sent to her pharmacy. Please advise. Thank you. * Telephone Encounter - Isacc Alves OSA - 02/07/2024 4:38 PM EDT Patient calling in to check on the status of previous message. Patient Called within 48 hour timeframe. Reminded patient of 48 hour turn-around time. * Telephone Encounter - Lynette Pate LPN - 02/07/2024 12:57 PM EDT Results for orders placed or performed in visit on 02/04/24 URINALYSIS, REFLEX TO MICROSCOPIC Result Value Ref Range Color, Urine Yellow Light Yellow, Yellow, Dark Yellow Clarity, Urine Clear Clear Glucose, Urine Negative Negative mg/dL Bilirubin, Urine Negative Negative Ketone, Urine Negative Negative mg/dL Specific [place], Urine 1.015 1.003 - 1.030 Blood, Urine Trace (A) Negative pH, Urine 5.5 5.0 - 7.5 Units Protein, Urine Negative Negative mg/dL Urobilinogen, Urine 0.2 0.2, 1.0 mg/dL Nitrite, Urine Negative Negative Esterase, Urine Small (A) Negative CULTURE, URINE, QUANTITATIVE Specimen: Urine, Clean Catch Result Value Ref Range Culture Growth >100,000 colonies/mL Enterococcus species (A) Susceptibility Enterococcus species - MICROBROTH DILUTIONS Ampicillin Susceptible Nitrofurantoin Resistant Tetracycline Susceptible Vancomycin Susceptible MICROSCOPIC EXAM, URINE Result Value Ref Range RBC, Urine 0-2 0 - 2 /HPF WBC, Urine 20-29 (A) 0 - 2 /HPF Bacteria, Urine 26-50 (A) 0 - 25 /HPF * Telephone Encounter - Yasmin Augustine OSA - 02/07/2024 11:30 AM EDT Patient calling in to check on the status of previous message. Patient Called within 48 hour timeframe. Reminded patient of 48 hour turn-around time. Is being treated for a uti and wants to know the plan of care * Telephone Encounter - Noris Colby OSA - 02/07/2024 8:19 AM EDT Who is Requesting Test Results: Rachel Primary Care Provider : Sussy Zhu PA-C Tests Results Requested : Urine Culture Date of Test : 02/04/24 Location of Test: Ordering Provider: Barakstrongminh Patient has been made aware that the turnaround time for test results are typically as follows: Laboratory results = within 2-3 days ([facility]), 3-5 days (Non[facility], ie. [facility]) Urine Cultures = within 2-3 days depending on growth within the culture Pathology results (biopsy results/PAP) = 1-2 weeks Radiology results = about 1 week Cologuard results = within 2 weeks from the shipment date COVID testing = about 24 hours documented in this encounter Plan of Treatment Upcoming Encounters Date Type Department Care Team (Late st Contact Info) Description 02/14/2024 10:30 AM EDT Laboratory [facility] [address] [place] [phone] [place] [address] 02/17/2024 2:00 PM EDT Office Visit [place] [address] [address] Sussy Zhu PA-C [address] [place] [address] 02/29/2024 11:30 AM EDT Office Visit Ophthalmology, [facility] [address] [facility] [place] [address] Mina Christiansen DO [address] [place] [address] 03/16/2024 11:30 AM EDT Office Visit Gynecology/Obstetrics [facility] [address] [facility] [place] [address] Ny Mccracken CRNP [address] [facility] [address] 03/16/2024 3:45 PM EDT Office Visit Dermatology [facility] [address] [facility] [place] [address] Qian Dorman MD [address] [facility] [place], [place] [address] Health Maintenance Due Date Last Done Comments [...] D LEVEL ONCE IN A LIFETIME-USE SMARTSET# 62183 Completed 03/15/2006 Pneumococcal Vaccine: 65+ Years Completed [...] this encounter Medical Devices Implanted Type Area Butcher Helper Device Identifier Shelf Expiration Date Model / Serial / Lot Lens 23.5 M160l - [id number] - [id number] Implanted:Qty: 1 on 10/03/2015 by Arnol Auguste MD at [facility] Left: Eye [employer]USCH [employer] LOMB : SURGICAL 11/25/2016 [id number]-[id number] / [id number] / [id number] Lens Intraoc 23.0 - [id number] - [id number] Implanted:Qty: 1 on 06/04/2016 by Flakito Sorto MD at [place] [facility] Right: Eye BAUSCH [employer] LOMB 11/25/2020 [id number] / [id number] / documented as of this encounter Advance [...] Agents on File Name Relationship Healthcare Agent [facility] p Communication Juan Garcia Adult Child Health Care Agesamantha t (per Health Care Power of Web Services Professional document) Care Teams End Finder Twisting Department Relationship Specialty Start Date End Date Marko September PERI [facility] [address] [place], [place] [address] PCP - General Physician Folding Rules Printing Machine Operator 01/10/24 documented as of this encounter
--- OUTSIDE RECORDS SUMMARY | 2024-04-18 02:12 | External Medical Summary | Summary of Care ---
Author Name Unknown Organization [facility] Address [address] [facility] [place] [address] Phone [phone] Care Team Providers Care Spool Maker Name Role Phone Sussy Zhu PERI Primary Care Provider [phone] Reason for Visit * Reason Comments Outpatient Testing Encounter Details Date Type Department Care Team (Late st Contact Info) Description 02/14/2024 10:30 AM EDT Laboratory Laboratory [facility] [place] [address] [place] [id number] [place], [address] [place] [address] Lightheaded; DYSLIPIDEMIA, GOAL TO BE DETERMINED; Recurrent [...] gene variant (c.1783 C>T, p.(R595W)) detected via [employer]pond. Increased risk for Familial hypercholesterolemia (FH). Please [...] mRNA, LNP-s, No Pre serve, 2-Dose Series (ORVIBO) 10/01/2021,04/07/2021,09/14/2020,07/30 COVID-19, LNP-s, No Preserve , Yimi-sucrose, [...] Description 02/14/2024 4:20 PM EDT Office Visit [facility] [address] [place] [address] Charissa Heart DO [address] [place] [address] 02/17/2024 2:00 PM EDT Office Visit [facility] [address] [place] [address] Sussy Zhu PA-C [address] [place] [address] 02/29/2024 11:30 AM EDT Office Visit Ophthalmology, [facility] [address] [place] [address] Mina Christiansen DO [address] [place] [address] 03/16/2024 11:30 AM EDT Office Visit Gynecology/Obstetrics [facility] [address] [place] [address] Ny Mccracken CRNP [address] [place] [address] 03/16/2024 3:45 PM EDT Office Visit Dermatology [facility] [address] [place] [address] Qian Dorman MD [address] [facility] [place] [address] Pending Results Name Type Priority Associated Diagnoses Date /Time LIPID PANEL WITH DIRECT LDL IF TG [...] D LEVEL ONCE IN A LIFETIME-USE SMARTSET# 51242 Completed 03/15/2006 Pneumococcal Vaccine: 65+ Years Completed 05/21/2014, 05/05/2006 *BISPHONATE OR OTHER ACCEPTABLE MEDICATION NEEDED FOR OSTEOPOROSIS (REFER TO SMARTSET #6713) Addressed 06/29/2017 (Refused) Overridden wi th the [...] this encounter Medical Devices Implanted Type Area Principal Automation Engineer Device Identifier Shelf Expiration Date Model / Serial / Lot Lens 23.5 M160l - [id number] - [id number] Implanted:Qty: 1 on 10/03/2015 by Arnol Auguste MD at [facility] Left: Eye BAUSCH [employer] LOMB : SURGICAL 11/25/2016 [id number] / [id number] / [id number] Lens Intraoc 23.0 - [id number] - [id number] Implanted:Qty: 1 on 06/04/2016 by Flakito Sorto MD at [facility] Right: Eye BAUSCH [employer] LOMB 11/25/2020 [id number] / [id number] / documented as of this encounter Procedures Procedure Name Priority Date/Time Associated Diagnosis Comments CBC Routine 02/14/2024 9:32 AM EDT Lightheaded documented in this encounter Results * CBC (02/14/2024 9:32 AM EDT) WBC 7.79 4.00 - 10.80 K/uL 02/14/2024 10:08 AM EDT [facility]- RBC 4.31 3.85 - 5.15 M/uL 02/14/2024 10:08 AM EDT [facility] 56- HGB 13.1 12.0 - 15.3 g/dL 02/14/2024 10:08 AM EDT [facility] 56- HCT 40.5 36.0 - 45.2 % 02/14/2024 10:08 AM EDT [facility] 56- MCV 94.0 81.5 - 97.5 fL 02/14/2024 10:08 AM EDT [facility] 56- MCH 30.4 27.0 - 34.0 pg 02/14/2024 10:08 AM EDT [facility] 56 MCHC 32.3 32.0 - 36.0 g/dL 02/14/2024 10:08 AM EDT [facility] 56- RDW 14.0 11.5 - 15.5 % 02/14/2024 10:08 AM EDT [facility] 56- PLT 199 140 - 400 K/uL 02/14/2024 10:08 AM EDT [facility] 56- MPV 9.8 6.6 - 11.1 fL 02/14/2024 10:08 AM EDT [facility] 56 Blood Venous blood specimen / Unknown Venipuncture / Unknown 02/14/2024 9:32 AM EDT 02/14/2024 9:32 AM EDT September Pito Zhu PA-C LAB BLOOD ORDERABLES Performing Organization Address City/State/[facility] Co de Phone Number [facility] [address] [facility] [address] documented in this encounter Visit Diagnoses Diagnosis Lightheaded Dizziness [...] Agen t (per Health Care Power of Supervisor Painting Shipyard document) Care Teams Spool Maker Relationship Specialty Start Date End Date Sussy Zhu PA-C [address] [place] [address] PCP - General Physician Board Worker 01/10/24 documented as of this encounter
--- OUTSIDE RECORDS SUMMARY | 2024-04-18 02:12 | External Medical Summary | Summary of Care ---
Author Name Unknown Organization [facility] Address [address] [facility] [place] [address] Phone [phone] Care Team Providers Care Newborn Photographer Name Role Phone Sussy Zhu PA-C Primary Care Provider Reason for Visit * Reason Onset Date Comments Other 02/09/2024 Encounter Details Date Type Department Care Team (Late st Contact Info) Description 02/09/2024 Telephone Centralized Clinical [facility], [facility] [address] [place] [address] [place] [address] Sussy Zhu PA-C [address] [facility] [address] Other (/) Allergies Active Allergy Reactions Criticality Noted Date Comments Sulfamethoxazole-Trimethopri m 01/03/2020 nausea Penicillins 03/23/2000 rash Trimethoprim High 04/01/2021 Other reaction(s): Nausea documented as of this encounter (statuses as of 02/09/2024) Medications Medication Sig Dispensed Refills Start Date [...] as of this encounter (statuses as of 02/09/2024) Active Problems Problem Noted Date Diagnosed Date Bronchospasm, exercise-induced 11/17/2023 Spinal enthesopathy, cervical region 07/14/2023 Bilateral nonexudative age-related macular degen eration 05/19/2023 Degenerative disc disease, cervical 09/09/2022 Hyperlipidemia 09/09/2022 History of 2019 novel coronavirus disease (COVID -19) 06/10/2022 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 Increased risk for Familial hypercholesterolemia (FH). Please [...] as of this encounter (statuses as of 02/09/2024) Resolved Problems Problem Noted Date Diagnosed Date [...] as of this encounter (statuses as of 02/09/2024) Immunizations Name Administration Dates Next Due COVID-19 mRNA, LNP-s, No Pre serve, 2-Dose Series (Anyone Home) 10/01/2021,04/07/2021,09/14/2020,08/24 COVID-19, LNP-s, No Preserve , Yimi-sucrose, [...] encounter Miscellaneous Notes * Telephone Encounter - Tiago Mcleod PHARM Tech - 02/09/2024 10:06 AM EDT Xfrd to specialty line ThanksTiago CPht Brake Shoe Rebuilder Centralized Clinical Pharmacy Services WB 02/09/2024,10:06 AM documented in this encounter Plan of Treatment Upcoming Encounters Date Type Department Care Team (Late st Contact Info) Description 02/14/2024 10:30 AM EDT Laboratory Laboratory [facility] [address] [facility] [place] [id number] [facility] [address] [facility] [place] [address] 02/17/2024 2:00 PM EDT Office Visit Family Practice [facility] [place] [address] [facility] [place] [address] Ssusy Zhu PA-C [address] [facility] [place] [address] 02/29/2024 11:30 AM EDT Office Visit Ophthalmology, [facility] [address] [place] [address] Mina Christiansen DO [address] [place] [address] 03/16/2024 11:30 AM EDT Office Visit Gynecology/Obstetrics [facility] [address] [place] [address] Ny Mccracken CRNP [address] [place] [address] 03/16/2024 3:45 PM EDT Office Visit Dermatology [place] [address] [facility] [place] [address] Qian Dorman MD [address] [facility] [place] [address] Health Maintenance Due Date Last Done Comments [...] D LEVEL ONCE IN A LIFETIME-USE SMARTSET# 15213 Completed 03/15/2006 Pneumococcal Vaccine: 65+ Years Completed 05/21/2014, 05/05/2006 *BISPHONATE OR OTHER ACCEPTABLE MEDICATION NEEDED FOR OSTEOPOROSIS (REFER TO SMARTSET #4015) Addressed 06/29/2017 (Refused) Overridden wi th the [...] this encounter Medical Devices Implanted Type Area Ethylbenzene Converter Operator Device Identifier Shelf Expiration Date Model / Serial / Lot Lens 23.5 M160l - [id number] - [id number] Implanted:Qty: 1 on 10/03/2015 by Arnol Auguste MD at OR [facility] Left: Eye BAUSCH [employer] LOMB : SURGICAL 11/25/2016 [id number] / [id number] / [id number] Lens Intraoc 23.0 - [id number] - [id number] Implanted:Qty: 1 on 06/04/2016 by Flakito Sorto MD at OR [facility] Right: Eye BAUSCH & LOMB 11/25/2020 [id number] / [id number] / documented as of this encounter Advance [...] Agents on File Name Relationship Healthcare Agent [facility] p Communication Juan Garcia Adult Child Health Care Agen t (per Health Care Power of Baggage Clerk document) Care Teams Newborn Photographer Relationship Specialty Start Date End Date Marko Sussy PERI [facility] [address] [place] [address] [place] [address] PCP - General Physician Counter Former 01/10/24 documented as of this encounter
--- OUTSIDE RECORDS SUMMARY | 2024-04-18 02:12 | External Medical Summary ---
Author Name Unknown Address Unknown Organization [id number]:LABORATORY [facility] - [address] [place] [id number] Laboratory Report Ordering Provider Test Date Status CAMERONCARROL 02/14/2024 10:07:47 Final Observation Date Value Abnormality Reference (Units) Status Bacteria identified in Specimen by Culture 02/14/2024 10:07:47 No significant growth Final Test: Culture, Urine, Quanti tative
Specimen Source: Urine, Clean Catch
Specimen Type: Urine
Specimen Date: 02/14/2024 1007
Result Date: 02/15/2024 1121
Result Status: Final result
Resulting Lab: LAB[facility]ATORY [facility]
[address]
[place] [id number]

CULTURE

No significant growth

null Performing Location LABORATORY [facility] - [address] [facility] [address]
--- OUTSIDE RECORDS SUMMARY | 2024-04-18 02:12 | External Medical Summary ---
Author Name Unknown Address Unknown Organization [id number]:LABORATORY [facility] - [address] [place] [address] Laboratory Report Ordering Provider Test Date Status CARROL BARNES 02/04/2024 15:08:34 Final <10,000 colonies/ml mixed no rmal ana Observation Date Value Abnormality Reference (Units ) Status Bacteria identified in Specimen by Culture 02/04/2024 15:08:34 [id number]^ENTEROC OCCUS SPECIES Abnormal Final >100,000 colonies/mL Enteroc occus species Performing Location LAB[facility]ORY [facility] - [address] [place] [address] Ordering Provider Test Date Status CAMERONCARROL 02/04/2024 15:08:34 Final Observation Date Value Abnormality Reference (Units ) Status Ampicillin 02/04/2024 15:08:34 <=2 Susceptible Final Nitrofurantoin susceptibility 02/04/2024 15:08:34 256 Resistant Final Tetracyclinesusceptibility 02/04/2024 15:08:34 <=1 Susceptible Final Vancomycinsusceptibility 02/04/2024 15:08:34 <=0.5 Susceptible Final Test: Culture, Urine, Quanti tative
Specimen Source: Urine, Clean Catch
Specimen Type: Urine
Specimen Date: 02/04/2024 1508
Result Date: 02/06/2024 1321
Result Status: Final result
Abnormal: Yes
Resulting Lab: [facility]ORY [facility]
[address]
[place] [address]

CULTURE

>100,000 colonies/mL Enterococcus species (Abnormal)

<10,000 colonies/ml mixed normal ana

SUSCEPTIBILITY

Enterococcus
species
METHOD MICROBROTH
DILUTIONS

AMPICILLIN <=2 Susceptible
NITROFURANTOIN 256 Resistant
TETRACYCLINE <=1 Susceptible
VANCOMYCIN <=0.5 Susceptible

null Performing Location LABORATORY [facility] [place] - [address] [facility] [address]
--- OUTSIDE RECORDS SUMMARY | 2024-04-18 02:12 | External Medical Summary | Summary of Care ---
Author Name Unknown Organization [facility] Address [address] [facility] [place] [address] Phone [phone] Care Team Providers Care Band Sawing Machine Operator Name Role Phone KaminiSussy juárez Pito WHITT Primary Care Provider [phone] Encounter Details Date Type Department Care Team (Late st Contact Info) Description 02/14/2024 Telephone Family Practice [facility] [place] [address] [facility] [place] [address] Seun Riddle, [address] [facility] [place] [address] Allergies Active Allergy Reactions Criticality Noted Date [...] Frequency Start Date End Date Status Faricimab-svoa ([facility]) intravitreal inj 6 mgIndications:Exudative age-related macular degeneration [...] gene variant (c.1783 C>T, p.(R595W)) detected via Moneylib. Increased risk for Familial hypercholesterolemia (FH). Please [...] mRNA, LNP-s, No Pre serve, 2-Dose Series ([place]) 10/01/2021,04/07/2021,09/14/2020,08/24 COVID-19, LNP-s, No Preserve , Yimi-sucrose, [...] Telephone Encounter - Seun Riddle DO - 02/14/2024 10:04 AM EDT I was contacted from the lab, pt still having symptoms. Urine culture ordered. Pt being seen today also. documented in this encounter Plan of Treatment Upcoming Encounters Date Type Department Care Team (Late st Contact Info) Description 02/14/2024 10:30 AM EDT Laboratory Laboratory [facility] [place] [address] [place] [address] Nikolai Castro [facility] [address] [place] [address] Lightheaded; DYSLIPIDEMIA, GOAL TO BE DETERMINED; Recurrent UTI 02/14/2024 4:20 PM EDT Office Visit [facility] [address] [place] [address] Charissa Heart DO [address] [facility] [place] [address] 02/17/2024 2:00 PM EDT Office Visit [facility] [place] [address] [place] [address] Sussy Zhu PA-C [address] [facility] [place] [address] 02/29/2024 11:30 AM EDT Office Visit Ophthalmology, [facility] [address] [place] [address] Mina Christiansen DO [address] [place] [address] 03/16/2024 11:30 AM EDT Office Visit Gynecology/Obstetri marycarmen Veliz [address] [place] [address] Ny Mccracken CRNP [address] [place] [address] 03/16/2024 3:45 PM EDT Office Visit Dermatology [facility] [place] [address] [facility] [place] [address] Qian Dorman MD [address] [facility] [place] [address] Scheduled Orders Name Type Priority Associated Diagnoses Orde r Schedule CULTURE, URINE, QUANTITATIVE Lab Routine Dysuria Expected: 02/14/2024, Expires: 02/13/2025 Health Maintenance Due Date Last Done Comments [...] D LEVEL ONCE IN A LIFETIME-USE SMARTSET# 12937 Completed 03/15/2006 Pneumococcal Vaccine: 65+ Years Completed [...] this encounter Medical Devices Implanted Type Area Track Dresser Device Identifier Shelf Expiration Date Model / Serial / Lot Lens 23.5 M160l - [id number] - [id number] Implanted:Qty: 1 on 10/03/2015 by Arnol Auguste MD at OR [facility] Left: Eye BAUSCH & LOMB : SURGICAL 11/25/2016 [id number] / [id number] / [id number] Lens Intraoc 23.0 - [id number] - [id number] Implanted:Qty: 1 on 06/04/2016 by Flakito Sorto MD at OR [facility] Right: Eye BAUSCH & LOMB 11/25/2020 [id number] / [id number] / documented as of this encounter Visit Diagnoses Diagnosis Lightheaded Dizziness and giddiness DYSLIPIDEMIA, GOAL TO BE DETERMINED Other and unspecified hyperlipidemia Recurrent UTI Urinary tract infection, site not specified Dysuria- Primary documented in this encounter Advance Directives [...] Agents on File Name Relationship Healthcare Agent Ashishhi p Communication Juan Garcia Adult Child Health Care Phuc chiang (per Health Care Power of Auto Tune Up Mechanic document) Care Teams Band Sawing Machine Operator Relationship Specialty Start Date End Date Sussy Zhu PA-C [address] [place] [address] PCP - General Physician Cell Coverer 01/10/24 documented as of this encounter
--- OUTSIDE RECORDS SUMMARY | 2024-04-18 02:12 | External Medical Summary | Summary of Care ---
Author Name Unknown Organization [facility] Address [address] [facility] [place] [address] Phone [phone] Care Team Providers Care Hunter Guide Name Role Phone Sussy Zhu PERI Primary Care Provider [phone] Reason for Visit * Reason Comments Outpatient Testing Encounter Details Date Type Department Care Team (Late st Contact Info) Description 02/14/2024 10:30 AM EDT Laboratory Laboratory [facility] [place] [address] [place] [phone] [place], Lab Scenery [address] [place] [address] Lightheaded; DYSLIPIDEMIA, GOAL TO BE DETERMINED; Recurrent [...] gene variant (c.1783 C>T, p.(R595W)) detected via Zhanzuo. Increased risk for Familial hypercholesterolemia (FH). Please [...] mRNA, LNP-s, No Pre serve, 2-Dose Series ([employer]) 10/01/2021,04/07/2021,09/14/2020,07/30 COVID-19, LNP-s, No Preserve , Yimi-sucrose, [...] Description 02/14/2024 4:20 PM EDT Office Visit [facility] [address] [place] [address] Charissa Heart DO [address] [facility] [place] [address] 02/17/2024 2:00 PM EDT Office Visit [facility] [address] [place] [address] Sussy Zhu PA-C [address] [facility] [place] [address] 02/29/2024 11:30 AM EDT Office Visit Ophthalmology, [facility] [address] [place] [address] Mina Christiansen DO [address] [place] [address] 03/16/2024 11:30 AM EDT Office Visit Gynecology/Obstetrics [facility] [address] [place] [address] yN Mccracken CRNP [address] [place] [address] 03/16/2024 3:45 PM EDT Office Visit Dermatology [facility] [address] [place] [address] Qian Dorman MD 200 [facility] [place] [address] Pending Results Name Type Priority Associated Diagnoses [...] D LEVEL ONCE IN A LIFETIME-USE SMARTSET# 46035 Completed 03/15/2006 Pneumococcal Vaccine: 65+ Years Completed 05/21/2014, 05/05/2006 *BISPHONATE OR OTHER ACCEPTABLE MEDICATION NEEDED FOR OSTEOPOROSIS (REFER TO SMARTSET #8385) Addressed 06/29/2017 (Refused) Overridden wi th the [...] this encounter Medical Devices Implanted Type Area Division Human Resources Manager Device Identifier Shelf Expiration Date Model / Serial / Lot Lens 23.5 M160l - [id number] - [id number] Implanted:Qty: 1 on 10/03/2015 by Arnol Auguste MD at OR [facility] Left: Eye BAUSCH & LOMB : SURGICAL 11/25/2016 [id number] / [id number] / [id number] Lens Intraoc 23.0 - [id number] - [id number] Implanted:Qty: 1 on 06/04/2016 by Flakito Sorto MD at OR [facility] Right: Eye BAUSCH & LOMB 11/25/2020 [id number] / [id number] / documented as of this encounter Visit [...] Phuc chiang (per Health Care Power of Carbon Sequestration Plant Engineer document) Care Teams Hunter Guide Relationship Specialty Start Date End Date Marko September PERI [facility] [address] [place] [address] PCP - General Physician Art Gallery Director 01/10/24 documented as of this encounter
--- OUTSIDE RECORDS SUMMARY | 2024-04-18 02:12 | External Medical Summary | Summary of Care ---
Author Name Unknown Organization [facility] Address [address] [facility] [place] [address] Phone [phone] Care Team Providers Care Aluminum Can Collector Name Role Phone Sussy Zhu PERI Primary Care Provider [phone] Reason for Visit * Reason Comments Outpatient Testing Encounter Details Date Type Department Care Team (Late st Contact Info) Description 02/04/2024 2:40 PM EDT Laboratory Laboratory [facility] [place] [address] [place] [phone] [place], Lab Scen[address] [place] [address] Recurrent UTI Allergies Active Allergy Reactions Criticality Noted Date Comments Sulfamethoxazole-Trimethopri m 01/03/2020 nausea Penicillins 03/23/2000 rash Trimethoprim High 04/01/2021 Other reaction(s): Nausea documented as of this encounter (statuses as of 02/04/2024) Medications Medication Sig Dispensed Refills Start Date [...] 04/01/2023 Active Ondansetron HCl 4 MG Oral TabletIndications: Nausea without vomiting Take 1 Tablet by mouth [...] as of this encounter (statuses as of 02/04/2024) Active Problems Problem Noted Date Diagnosed Date Bronchospasm, exercise-induced 11/17/2023 Spinal enthesopathy, cervical region 07/14/2023 Bilateral nonexudative age-related macular degen eration 05/19/2023 Degenerative disc disease, cervical 09/09/2022 Hyperlipidemia 09/09/2022 History of 2019 novel coronavirus disease (COVID -19) 06/10/2022 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 Increased risk for Familial hypercholesterolemia (FH). Please [...] as of this encounter (statuses as of 02/04/2024) Resolved Problems Problem Noted Date Diagnosed Date [...] as of this encounter (statuses as of 02/04/2024) Immunizations Name Administration Dates Next Due COVID-19 mRNA, LNP-s, No Pre serve, 2-Dose Series (I[place]us) 10/01/2021,04/07/2021,09/14/2020,08/24 COVID-19, LNP-s, No Preserve , Yimi-sucrose, [...] Description 02/14/2024 10:30 AM EDT Laboratory Laboratory [facility] [address] [place] [phone] [place] [facility] [address] [place] [address] 02/17/2024 2:00 PM EDT Office Visit Family Practice [facility] [place] [address] [place] [address] Sussy Zhu PA-C [address] [facility] [place] [address] 02/29/2024 11:30 AM EDT Office Visit Ophthalmology, [facility] [address] [place] [address] Mina Christiansen DO [address] [place] [address] 03/16/2024 11:30 AM EDT Office Visit Gynecology/Obstetrics [facility] [address] [place] [address] Ny Mccracken CRNP [address] [place] [address] 03/16/2024 3:45 PM EDT Office Visit Dermatology [facility] [place] [address] [place] [address] Qian Dorman MD [address] [place] [address] 07/05/2024 1:00 PM EST Office Visit Gynecology/Obstetrics [facility] [address] [place] [address] Susan Wade CRNP [address] [place] [address] Pending Results Name Type Priority Associated Diagnoses Date /Time URINALYSIS, REFLEX TO MICROSCOPIC Lab Routine Recurrent UTI 02/04/2024 3:08 PM EDT CULTURE, URINE, QUANTITATIVE Lab Routine Recurrent UTI 02/04/2024 3:08 PM EDT MICROSCOPIC EXAM, URINE Lab Routine Recurrent UTI 02/04/2024 3:08 PM EDT Health Maintenance Due Date Last Done [...] D LEVEL ONCE IN A LIFETIME-USE SMARTSET# 06035 Completed 03/15/2006 Pneumococcal Vaccine: 65+ Years Completed 05/21/2014, 05/05/2006 *BISPHONATE OR OTHER ACCEPTABLE MEDICATION NEEDED FOR OSTEOPOROSIS (REFER TO SMARTSET #7620) Addressed 06/29/2017 (Refused) Overridden wi th the [...] this encounter Medical Devices Implanted Type Area Material Control Specialist Device Identifier Shelf Expiration Date Model / Serial / Lot Lens 23.5 M160l - [id number] - [id number] Implanted:Qty: 1 on 10/03/2015 by Arnol Auguste MD at OR [facility] Left: Eye BAUSCH & LOMB : SURGICAL 11/25/2016 [id number] / [id number] / [id number] Lens Intraoc 23.0 - [id number] - [id number] Implanted:Qty: 1 on 06/04/2016 by Flakito Sorto MD at OR [facility] Right: Eye BAUSCH & LOMB 11/25/2020 [id number] / [id number] / documented as of this encounter Visit Diagnoses Diagnosis Recurrent UTI Urinary tract infection, site not [...] Agen t (per Health Care Power of Office Specialist document) Care Teams Aluminum Can Collector Relationship Specialty Start Date End Date Sussy Zhu PA-C [address] [place] [address] [place] [address] PCP - General Physician Cold Rolling Coordinator 01/10/24 documented as of this encounter
--- OUTSIDE RECORDS SUMMARY | 2024-04-18 02:12 | External Medical Summary ---
Author Name Unknown Address Unknown Organization K09[facility] [address] [place] [address] Laboratory Report Ordering Provider Test Date Status CARROL BARNES 02/14/2024 10:07:47 Final Observation Date Value Abnormality Reference (Units ) Status Color of Urine by Auto 02/14/2024 10:07:47 Yellow Light Yellow, Yellow, Dark Yellow Final Clarity, Urine 02/14/2024 10:07:47 Clear Clear Final Glucose [Mass/volume] in Urine by Automated test strip 02/14/2024 10:07:47 Negative Negative (mg/dL) Final Bilirubin.total [Presence] in Urine by Automated test strip 02/14/2024 10:07:47 Negative Negative Final Ketones [Mass/volume] in Urine by Automated test strip 02/14/2024 10:07:47 Trace Abnormal Negative (mg/dL) Final Specific gravity, Urine 02/14/2024 10:07:47 >=1.030 1.003-1.030 Final Hemoglobin [Presence] in Urine by Automated test strip 02/14/2024 10:07:47 Trace Abnormal Negative Final pH, Urine 02/14/2024 10:07:47 5.5 5.0-7.5 (Units) Final Protein [Mass/volume] in Urine by Automated test strip 02/14/2024 10:07:47 30 Abnormal Negative (mg/dL) Final Urobilinogen [Mass/volume] in Urine by Automated test strip 02/14/2024 10:07:47 0.2 0.2, 1.0 (mg/dL) Final Nitrite [Presence] in Urine by Automated test strip 02/14/2024 10:07:47 Negative Negative Final Leukocyte esterase [Presence] in Urine by Automated test strip 02/14/2024 10:07:47 Moderate Abnormal Negative Final Performing Location [facility] [address] [place] [address]
--- OUTSIDE RECORDS SUMMARY | 2024-04-18 02:12 | External Medical Summary ---
Author Name Unknown Address Unknown Organization K01:[facility] - [address] [facility] [address] [place] [address] Laboratory Report Ordering Provider Test Date Status CARROL BARNES 02/14/2024 09:32:19 Final Observation Date Value Abnormality Reference (Units ) Status Triglyceride 02/14/2024 09:32:19 66 <=174 ( mg/dL) Final Triglyceride Reference Range s (mg/dL):
<150 Acceptable
150-174 Borderline high
175-499 High
>=500 Very high Cholesterol 02/14/2024 09:32:19 162 <200 (mg /dL) Final Total Cholesterol Reference Ranges (mg/dL):
<200 Desirable
200-239 Borderline high
>=240 High HDL 02/14/2024 09:32:19 59 >49 (mg/dL ) Final HDL Cholesterol Reference Ra nges (mg/dL):
>=60 High (Desirable)
<50 Low (Undesirable) For Females
<40 Low (Undesirable) For Males NON-HDL CHOLESTEROL 02/14/2024 09:32:19 103 <=159 (mg/dL) Final Non-HDL Cholesterol Referenc e Range (mg/dL):
<100 Target level for high risk ASCVD patient
<130 Optimal for general population
130-159 Near optimal for general population
160-189 Borderline High
190-219 High
>=220 Very High LDL, (calculated) 02/14/2024 09:32:19 90 <= 129 (mg/dL) Final LDL Cholesterol Reference Ra nges (mg/dL):
<70 Target level for high risk ASCVD patient
<100 Optimal for general population
100-129 Near optimal for general population
130-159 Borderline high
160-189 High
>=190 Very high Performing Location [facility] - [address] [facility] [address]
--- OUTSIDE RECORDS SUMMARY | 2024-04-18 02:13 | External Medical Summary | Summary of Care ---
Author Name Unknown Organization [facility] Address [address] [place] [address] Phone [phone] Care Team Providers Care Senior Medical Technologist Name Role Phone BarakSeun javier Primary Care Provider Encounter Details Date Type Department Care Team (Late st Contact Info) Description 01/05/2024 9:45 AM EDT Scheduled Telephone Care Coordination and Integration [address] [place] [address] Arron Rojas [facility] Senior Software Engineer Java [address] [place] [address] Allergies Active Allergy Reactions Criticality Noted Date Comments Sulfamethoxazole-Trimethopri m 01/03/2020 nausea Penicillins 03/23/2000 rash Trimethoprim High 04/01/2021 Other reaction(s): Nausea documented as of this encounter (statuses as of 01/05/2024) Medications Medication Sig Dispensed Refills Start Date [...] the morning. 90 Tablet 3 12/17/2023 Active Nitrofurantoin Monohyd Macro 100 MG Oral Capsule (Macrobid) Take 1 Capsule by mouth in the morning and 1 Capsule before bedtime. Do all this for 7 days. With food until gone. 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 Increased risk for Familial hypercholesterolemia (FH). Please [...] as of this encounter (statuses as of 01/05/2024) Resolved Problems Problem Noted Date Diagnosed Date [...] as of this encounter (statuses as of 01/05/2024) Immunizations Name Administration Dates Next Due COVID-19 mRNA, LNP-s, No Pre serve, 2-Dose Series (Scil Proteins) 10/01/2021,04/07/2021,09/14/2020,08/24 COVID-19, LNP-s, No Preserve , Yimi-sucrose, [...] as of this encounter Progress Notes * Arron Rojas [facility] Senior Software Engineer Java - 01/05/2024 10:09 AM EDT Telemedicine visit: No [facility] Senior Software Engineer Java (LOLY) documentation: CHW follow up phone call for RNCM and reached the patient's voicemail. CHW left a brief message with my callback information. Bebo Rojas Community [facility] Worker Lead G - [place] [phone] Electronically signed by Arron Rojas [facility] Senior Software Engineer Java at 01/05/2024 10:10 AM EDT documented in this encounter Plan of Treatment Upcoming Encounters Date Type Department Care Team (Late st Contact Info) Description 01/10/2024 11:45 AM EDT Office Visit Urogynecology Alix Veliz [address] [place] [address] Diogo Cornelius MD [address] [place] [address] Nurse Benigno Veliz [address] [place] [address] 02/14/2024 10:30 AM EDT Laboratory Laboratory [facility] [place] [address] [place] [address] Nikolia [address] [place] [address] 02/17/2024 2:00 PM EDT Office Visit Family Practice [facility] [address] [facility] [place], [place] [address] Sussy Zhu PA-C [address] [facility] [place], [place] [address] 02/29/2024 11:30 AM EDT Office Visit Ophthalmology, [facility] [address] [place] [address] Mina Christiansen DO [address] [place] [address] 03/16/2024 3:45 PM EDT Office Visit Dermatology [facility] [address] [place] [address] Qian Dorman MD [address] [facility] [place] [address] 07/05/2024 1:00 PM EST Office Visit Gynecology/Obstetrics [facility] [address] [place] [address] Susan Wade CRNP [address] [place] [address] Health Maintenance Due Date Last Done Comments [...] D LEVEL ONCE IN A LIFETIME-USE SMARTSET# 64387 Completed 03/15/2006 Pneumococcal Vaccine: 65+ Years Completed 05/21/2014, 05/05/2006 *BISPHONATE OR OTHER ACCEPTABLE MEDICATION NEEDED FOR OSTEOPOROSIS (REFER TO SMARTSET #3236) Addressed 06/29/2017 (Refused) Overridden wi th the [...] this encounter Medical Devices Implanted Type Area Plumbing Instructor Device Identifier Shelf Expiration Date Model / Serial / Lot Lens 23.5 M160l - [id number] - [id number] Implanted:Qty: 1 on 10/03/2015 by Arnol Auguste MD at OR [facility] Left: Eye BAUSCH & LOMB : SURGICAL 11/25/2016 [id number] / [id number] / [id number] Lens Intraoc 23.0 - [id number] - [id number] Implanted:Qty: 1 on 06/04/2016 by Flakito Sorto MD at OR [facility] Right: Eye BAUSCH & LOMB 11/25/2020 [id number] / [id number] / documented as of this encounter Advance [...] Agen t (per Health Care Power of Delivery Of Shopping News document) Care Teams Senior Medical Technologist Relationship Specialty Start Date End Date Seun Riddle DO [address] [place] [facility] [place] [address] PCP - General Family Medicine 12/25/16 documented as of this encounter
--- OUTSIDE RECORDS SUMMARY | 2024-04-18 02:13 | External Medical Summary | Summary of Care ---
Author Name Unknown Organization [facility] Address [address] [facility] [place] [address] Phone [phone] Care Team Providers Care Sql Server Dba Developer Name Role Phone KaminiSussy juárez Pito WHITT Primary Care Provider [phone] Reason for Visit * Reason Comments Follow Up Encounter Details Date Type Department Care Team (Late st Contact Info) Description 01/10/2024 11:45 AM EDT Office Visit Urogynecology Alix Veliz [address] [place] [address] Diogo Cornelius MD [address] [place] [address] Nurse Benigno Veliz [address] [place] [address] Cystocele, midline*; Atrophic vaginitis; History of recurrent UTI (urinary tract infection) Allergies Active Allergy Reactions Criticality Noted Date Comments Sulfamethoxazole-Trimethopri m 01/03/2020 nausea Penicillins 03/23/2000 rash Trimethoprim High 04/01/2021 Other reaction(s): Nausea documented as of this encounter (statuses as of 01/10/2024) Medications Medication Sig Dispensed Refills Start Date [...] as of this encounter (statuses as of 01/10/2024) Active Problems Problem Noted Date Diagnosed Date Bronchospasm, exercise-induced 11/17/2023 Spinal enthesopathy, cervical region 07/14/2023 Bilateral nonexudative age-related macular degen eration 05/19/2023 Degenerative disc disease, cervical 09/09/2022 Hyperlipidemia 09/09/2022 History of 2019 novel coronavirus disease (COVID -19) 06/10/2022 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 Increased risk for Familial hypercholesterolemia (FH). Please [...] as of this encounter (statuses as of 01/10/2024) Resolved Problems Problem Noted Date Diagnosed Date [...] e replacement therapy (postmenopausal) 11/13/2013 Mixed dyslipidemia Overview: Per Lipid Taxonomy. Allergic rhinitis 09/02/2018 Lyme disease 01/16/2012 documented as of this encounter (statuses as of 01/10/2024) Immunizations Name Administration Dates Next Due COVID-19 mRNA, LNP-s, No Pre serve, 2-Dose Series (Nuevolution) 10/01/2021,04/07/2021,09/14/2020,08/24 COVID-19, LNP-s, No Preserve , Yimi-sucrose, Ages 12+ (Nuevolution) 04/04/2022 H1N1 2009 Influenza, IM 07/27/2009 PPD [...] Sign Reading Time Taken Comments Blood Pressure 132/70 01/10/2024 11:03 AM EDT Pulse - - Temperature - - Respiratory Rate - - Oxygen Saturation - - Inhaled Oxygen Concentration - - Weight 51.5 kg (113 lb 9.6 oz) 01/10/2024 11:03 AM EDT Height - - Body Mass Index 20.13 12/17/2023 11:03 AM EDT documented in this encounter Progress Notes * Diogo Cornelius MD - 01/10/2024 10:56 AM EDT Rachel Garcia presents for a follow up visit at [facility]. She was previously seen for N81.11 Cystocele, midline (primary encounter diagnosis) N95.2 Atrophic vaginitis Z87.440 History of recurrent UTI (urinary tract infection) Since last seen, she is feeling improved. Urinary: no frequency, urgency, incontinence, or dysuria symptoms GI: no complaints Workday Consultant: no pain, no bleeding with new pessary Overall is pleased with current treatment plan and wishes to continue current treatment. Concerns: none Allergies: Review of patient's allergies indicates: Allergen Reactions Trimethoprim Other reaction(s): Nausea Bactrim [Sulfamethoxazole-Trimethoprim] nausea Penicillins rash Active Medications: Current Outpatient [...] mouth in the morning. 100 Tablet 3 Ondansetron HCl 4 MG Oral [...] 1.5 mg 1.5 mg Injection PRN Mina Christiansen, DO 1.5 mg at 01/04/24 1334 Faricimab-svoa (Vabysmo) intravitreal inj 6 mg 6 mg Intravitreal PRN Mina Christiansen T, DO 6 mgat 01/04/24 1335 ROS: No Change since previous visit There were no vitals taken for this visit. Blood pressure %karolyn are not available for patients who are 18 years or older. There is no height or weight on file to calculate BMI. EXAM: Well developed well nourished female in no apparent distress. Alert oriented x3 HEART: Normal peripheral pulses, Edema neg THYROID: no obvious neck masses LUNG: No increased respiratory effort ABD: Soft, NT, ND, no masses PELVIC EXAM: Ext gen: Normal external female genitalia, Vagina: No vaginal lesions or abnormal discharge. No lesions BIMANUAL EXAM: no masses, NT Results for orders placed or performed in visit on 12/27/23 URINALYSIS, REFLEX TO MICROSCOPIC Result Value Ref Range Color, Urine Yellow Light Yellow, Yellow, Dark Yellow Clarity, Urine Clear Clear Glucose, Urine Negative Negative mg/dL Bilirubin, Urine Negative Negative Ketone, Urine Trace (A) Negative mg/dL Specific [place], Urine 1.025 1.003 - 1.030 Blood, Urine Trace (A) Negative pH, Urine 5.5 5.0 - 7.5 Units Protein, Urine Trace (A) Negative mg/dL Urobilinogen, Urine 0.2 0.2, 1.0 mg/dL Nitrite, Urine Negative Negative Esterase, Urine Moderate (A) Negative CULTURE, URINE, QUANTITATIVE Specimen: Urine, Clean Catch Result Value Ref Range Culture Growth No significant growth MICROSCOPIC EXAM, URINE Result Value Ref Range RBC, Urine 3-5 (A) 0 - 2 /HPF WBC, Urine 20-29 (A) 0 - 2 /HPF Bacteria, Urine 101-150 (A) 0 - 25 /HPF Impression: This is a 83 year old with Cystocele, midline (Primary) Atrophic vaginitis History of recurrent UTI (urinary tract infection) Mrs. Garcia is happy with the smaller pessary #3. She denies pain or bleeding. She will continue using the estrogen cream to treat atrophy and to help prevent UTI's. She will follow up with her STATOR PLATE WASHER provider for her pessary cleanings. I spent a total of 20 minutes on the date of service in preparation, delivery, and documentation ofthe care provided to Rachel Garcia excluding any time spent in the performance of separately billed services. Diogo Cornelius MD 01/10/2024 10:56 AM documented in this encounter Nursing Notes * Hanny Ashley TECH - 01/10/2024 11:06 AM EDT Patient here for pessary check New size inserted 6 weeks ago documented in this encounter Plan of Treatment Upcoming Encounters Date Type Department Care Team (Late st Contact Info) Description 02/14/2024 10:30 AM EDT [facility] [address] [facility] [place] [address] Nikolai Castro [facility] [address] [facility] [place] [address] 02/17/2024 2:00 PM EDT Office Visit Family Practice [facility] [address] [place] [address] Sussy Zhu PA-C [address] [facility] [place] [address] 02/29/2024 11:30 AM EDT Office Visit Ophthalmology, [facility] [address] [place] [address] Mina Christiansen DO [address] [place] [address] 03/16/2024 3:45 PM EDT Office Visit Dermatology [facility] [address] [facility] [place] [address] Qian Dorman MD [address] [facility] [place] [place] [address] 07/05/2024 1:00 PM EST Office Visit Gynecology/Obstetrics [facility] [address] [place] [address] Susan Wade CRNP [address] [place] [address] Health Maintenance Due Date Last Done Comments [...] D LEVEL ONCE IN A LIFETIME-USE SMARTSET# 46166 Completed 03/15/2006 Pneumococcal Vaccine: 65+ Years Completed 05/21/2014, 05/05/2006 *BISPHONATE OR OTHER ACCEPTABLE MEDICATION NEEDED FOR OSTEOPOROSIS (REFER TO SMARTSET #7266) Addressed 06/29/2017 (Refused) Overridden wi th the [...] this encounter Medical Devices Implanted Type Area Pump Mechanic Device Identifier Shelf Expiration Date Model / Serial / Lot Lens 23.5 M160l - [id number] - [id number] Implanted:Qty: 1 on 10/03/2015 by Arnol Auguste MD at OR [facility] Left: Eye BAUSCH & LOMB : SURGICAL 11/25/2016 [id number] / [id number] / [id number] Lens Intraoc 23.0 - [id number] - [id number] Implanted:Qty: 1 on 06/04/2016 by Flakito Sorto MD at OR [facility] Right: Eye BAUSCH & LOMB 11/25/2020 [id number] / [id number] / documented as of this encounter Visit [...] Agents on File Name Relationship Healthcare Agent [facility] Communication Juan Garcia Adult Child Health Care Sukhin t (per Health Care Power of Personal Injury Specialist document) Care Teams Sql Server Dba Developer Relationship Specialty Start Date End Date Marko September PERI Sheldon [address] [place] [address] PCP - General Physician Front End Specialist 01/10/24 documented as of this encounter
--- OUTSIDE RECORDS SUMMARY | 2024-04-18 02:13 | External Medical Summary | Summary of Care ---
Author Name Unknown Organization [facility] Address [address] [facility] [place] [address] Phone [phone] Care Team Providers Care Perl Programmer Name Role Phone BarakSeun javier Blas MELCHOR Primary Care Provider [phone] Reason for Visit * Reason Comments Follow Up * Precert (Within 10 days (routine)) - Authorized Specialty Diagnoses / Procedures Referred By Nedra chiang Referred To Contact Ophthalmology Diagnoses Exudative age-related macular degeneration, right eye, with active choroidal neovascularization (HCC) Procedures NV INJECTION, FARICIMAB-SVOA, 0.1 MG NV INTRAVITREAL NJX PHARMACOLOGIC AGT SPX Mina Christiansen DO [address] [place] [address] Referral ID Status Reason Start Date Expiration Date V isits Requested Visits Authorized [id number] Authorized Precert 07/01/2023 06/27/2099 [id number] Encounter Details Date Type Department Care Team (Late st Contact Info) Description 01/04/2024 1:15 PM EDT Office Visit Ophthalmology, [facility] [address] [place] [address] Mina Christiansen DO [address] [place] [address] Exudative age-related macular degeneration of right eye with active choroidal neovascularization (HCC)*; Intermediate stage nonexudative age-related macular degeneration of left eye Allergies Active Allergy Reactions Criticality Noted Date Comments Sulfamethoxazole-Trimethopri m 01/03/2020 nausea Penicillins 03/23/2000 rash Trimethoprim High 04/01/2021 Other reaction(s): Nausea documented as of this encounter (statuses as of 01/04/2024) Medications Medication Sig Dispensed Refills Start Date [...] as of this encounter (statuses as of 01/04/2024) Active Problems Problem Noted Date Diagnosed Date Bronchospasm, exercise-induced 11/17/2023 Spinal enthesopathy, cervical region 07/14/2023 Bilateral nonexudative age-related macular degen eration 05/19/2023 Degenerative disc disease, cervical 09/09/2022 Hyperlipidemia 09/09/2022 History of 2019 novel coronavirus disease (COVID -19) 06/10/2022 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 Increased risk for Familial hypercholesterolemia (FH). Please [...] as of this encounter (statuses as of 01/04/2024) Resolved Problems Problem Noted Date Diagnosed Date [...] as of this encounter (statuses as of 01/04/2024) Immunizations Name Administration Dates Next Due COVID-19 mRNA, LNP-s, No Pre serve, 2-Dose Series (Gecko TV) 10/01/2021,04/07/2021,09/14/2020,07/30 COVID-19, LNP-s, No Preserve , Yimi-sucrose, Ages 12+ (Gecko TV) 04/04/2022 H1N1 2009 Influenza, IM 07/27/2009 PPD [...] Progress Notes * Mina Christiansen DO - 01/04/2024 1:15 PM EDT [facility] [place] Nursing notes reviewed. Eye vitals reviewed. Mood and Affect: normal HPI: Rachel Garcia is an 83 year old female who presents for evaluation of AMD No other eye complaints. Denies significant pain. Base Eye Exam Visual Acuity (Snellen - Linear) Right Left Dist sc 20/30 -2 20/40 -2 Dist ph sc NI Tonometry (Tonopen, 1:18 PM) Right Left Pressure 9 9 Tonometry #2 (Tonopen, 1:18 PM) Right Left Pressure 8 8 Tonometry #3 (Tonopen, 1:18 PM) Right Left Pressure 8 7 Pupils Pupils APD Right PERRL None Left PERRL None Visual Ramirez (Counting fingers) Right Left Full Full Extraocular Movement Right Left Full, Ortho Full, Ortho Neuro/Psych Oriented x3: Yes Mood/Affect: Normal Dilation Both eyes: 0.5% Proparacaine @ 1:17 PM Dilation #2 Both eyes: 1.0% Mydriacyl, 2.5% Phenylephrine @ 1:17 PM Dilation #3 Both eyes: 1.0% Mydriacyl, 2.5% Phenylephrine @ 1:19 PM Dilation Comments Patient cautioned that effects of [...] 12/24/21, 10/15/21, 08/07/21, 07/07/21, 06/09/21, 04-28-21, 03/19/21, 02-18-, 12-11-20, 10-22-20, 09-04-20, 07-17-20, 06-05-20, 04-30-20, 03-26-20, 02-08-20, 01-03-20, 11-21-19, 10-10-19, 08-29-19, 07-19-19, 06-14-19) - worse at 9 and 10 weeks missed appoint due to travel; better at 6-8 weeks - had heme at 9 weeks -3 weeks since injection - 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 -recommend AREDS2 MVI as directed and Amsler grid qday --pt cannot tolerate due to nausea so only taking Lutein 20mg/day 2. Pseudophakia OU - s/p YAG PC OS -monovision F/u 6-8 weeks, Mar Mina Christiansen DO CC: Archie Bronson, OD [...] documented in this encounter Nursing Notes * Nan Cohen MED ASSIST - 01/04/2024 1:34 PM EDT Rachel Garcia to receive sixth Vabysmo 6mg Injection of the Right eye. Correct eye confirmed with patient and marked by Mina Christiansen DO Vabysmo 6mg lot # [id number] Exp. Date: 09/2025 * Gisella Hope RN - 01/04/2024 1:10 PM EDT Rachel Garcia is a 83 year old year old female who presents for AMD OU. Last Office Visit: 11/30/2023 (in office), Visit date not found (telemedicine) Patient currently states no change in vision. Are you diabetic? No Do you drive? "not currently" OCT image(s) of both eyes acquired and filed/scanned into chart. documented in this encounter Plan of Treatment Upcoming Encounters Date Type Department Care Team (Late st Contact Info) Description 01/10/2024 11:45 AM EDT Office Visit Urogynecology Alix Veliz [address] [place] [address] Diogo Cornelius MD [address] [place] [address] Nurse Benigno Veliz [address] [place] [address] 02/14/2024 10:30 AM EDT Laboratory Laboratory [facility] [place] [address] [place] [address] [id number] [place], Lab [facility] [address] [facility] [place] [address] 02/17/2024 2:00 PM EDT Office Visit Family Practice [facility] [place] [address] [place] [address] Sussy Zhu PA-C [address] [facility] [place] [address] 03/16/2024 3:45 PM EDT Office Visit Dermatology [facility] [place] [address] [place] [address] Qian Dorman MD [address] [place] [address] 07/05/2024 1:00 PM EST Office Visit Gynecology/Obstetrics Alix Veliz [address] [place] [address] [place], MACIE Aldrich [address] [place] [address] Scheduled Orders Name Type Priority Associated Diagnoses Orde r Schedule RETINA SCAN DIAGNOSTIC IMAGE, POSTERIOR Procedures Routine 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 Ordered: 01/04/2024 Health Maintenance Due Date Last Done Comments [...] D LEVEL ONCE IN A LIFETIME-USE SMARTSET# 82022 Completed 03/15/2006 Pneumococcal Vaccine: 65+ Years Completed [...] this encounter Medical Devices Implanted Type Area Automatic Grinder Operator Device Identifier Shelf Expiration Date Model / Serial / Lot Lens 23.5 M160l - [id number] - [id number] Implanted:Qty: 1 on 10/03/2015 by Arnol Auguste MD at OR [facility] Left: Eye BAUSCH [employer] LOMB : SURGICAL 11/25/2016 [id number]-92.5 / [id number] / [id number] Lens Intraoc 23.0 - [id number] - [id number] Implanted:Qty: 1 on 06/04/2016 by Flakito Sorto MD at OR [facility] Right: Eye BAUSCH & LOMB 11/25/2020 [id number] / [id number] / documented as of this encounter Visit [...] the treatment of a single eye. Given 01/04/2024 1:35 PM EDT 6 mg Eye Right Given 11/30/2023 11:01 AM EDT 6 mg E ye Right Given 10/21/2023 11:45 AM EDT 6 mg E ye Right ROPivacaine (Naropin) inj 1.5 mg 1.5 mg, Injection, PRN Other, Starting on Marisol 01/21/23 at 1127, Until Wed01/21/24 at 1126, For 365 days Given 01/04/2024 1:34 PM EDT 1.5 mg Eye R ight Given 11/30/2023 11:01 AM EDT 1.5 mg E ye Right Given 10/21/2023 11:45 AM EDT 1.5 mg E nadeem Right documented in this encounter Advance Directives [...] Agents on File Name Relationship Healthcare Agent [facility] Communication Juan Garcia Adult Child Health Care Agen t (per Health Care Power of Strainer Mill Operator document) Care Teams Perl Programmer Relationship Specialty Start Date End Date Seun Riddle DO [address] [place] [address] PCP - General Family Medicine 12/25/16 documented as of this encounter
--- OUTSIDE RECORDS SUMMARY | 2024-04-18 02:13 | External Medical Summary | Summary of Care ---
Author Name Unknown Organization [facility] Address [address] [place] [address] Phone [phone] Care Team Providers Care Earth Auger Operator Name Role Phone Seun Riddle DO Primary Care Provider Reason for Visit * Reason Onset Date Comments Advice 12/29/2023 Test Results 12/29/2023 Encounter Details Date Type Department Care Team (Late st Contact Info) Description 12/29/2023 Telephone Family Practice [facility] [address] [facility] [place] [address] Seun Riddle DO [address] [place] [address] Advice; Test Results Allergies Active Allergy Reactions Criticality Noted Date Comments Sulfamethoxazole-Trimethopri m 01/03/2020 nausea Penicillins 03/23/2000 rash Trimethoprim High 04/01/2021 Other reaction(s): Nausea documented as of this encounter (statuses as of 12/29/2023) Medications Medication Sig Dispensed Refills Start Date [...] With food until gone. 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 Increased risk for Familial hypercholesterolemia (FH). [...] as of this encounter (statuses as of 12/29/2023) Resolved Problems Problem Noted Date Diagnosed Date [...] as of this encounter (statuses as of 12/29/2023) Immunizations Name Administration Dates Next Due COVID-19 mRNA, LNP-s, No Pre serve, 2-Dose Series (WeatherBug) 10/01/2021,04/07/2021,09/14/2020,08/24 COVID-19, LNP-s, No Preserve , Yimi-sucrose, Ages 12+ (WeatherBug) 04/04/2022 H1N1 2009 Influenza, IM 07/27/2009 PPD [...] encounter Miscellaneous Notes * Telephone Encounter - Kianna Smith RN - 12/29/2023 3:45 PM EDT Pt aware of below. Will try macrobid. * Telephone Encounter - Seun Riddle DO - 12/29/2023 1:50 PM EDT Her UA shows some questionable signs of a UTI but her culture finds no bacteria. I sent for macrobid if she wants to do a run of it but it is hard to guarantee that it will help. * Telephone Encounter - Luz Cunningham LPN - 12/29/2023 8:08 AM EDT Spoke with patient, informed that the urine culture was negative for a UTI. Still feels fatigued. "It seems like there is something wrong that we're missing. I've had many test, it's not for lack of trying though, we just haven't figured out why I feel this way" Reports that she doesn't get typical UTI symptoms, denies burning with urination, frequency, urgency, confusion, cloudy and dark urine. Patient and her son would like to know why her UA and Micro is abnormal that seems it would suggesta UTI? * Telephone Encounter - Lydia Hercules OSA - 12/29/2023 8:03 AM EDT Reason for patient's call: Pt would lijke to know what her UTI results were on Wednesday. She would like to speak to a nurse. Caller was transferred to Luz at the nurse line. documented in this encounter Plan of Treatment Upcoming Encounters Date Type Department Care Team (Late st Contact Info) Description 01/04/2024 1:15 PM EDT Office Visit Ophthalmology, [facility] [place] [address] [place] [address] Mina Christiansen DO [address] [place] [address] 01/10/2024 10:45 AM EDT Office Visit Urogynecology Alix Veliz [address] [place] [address] Diogo Cornelius MD [address] [place] [address] Nurse Benigno Veliz [address] [place] [address] 02/14/2024 10:30 AM EDT Laboratory Laboratory [place] [address] [place] [id number] [place], Lab [address] [place] [address] 02/17/2024 2:00 PM EDT Office Visit Family Practice [facility] [address] [facility] [place] [address] Sussy Zhu PA-C [address] [facility] [place] [address] 03/16/2024 3:45 PM EDT Office Visit Dermatology [facility] [place] [address] [facility] [place] [address] Qian Dorman MD [address] [facility] [place] [address] 07/05/2024 1:00 PM EST Office Visit Gynecology/Obstetrics [facility] [address] [place] [address] Susan Wade CRNP [address] [place] [address] Health Maintenance Due Date Last Done Comments [...] D LEVEL ONCE IN A LIFETIME-USE SMARTSET# [id number] Completed 03/15/2006 Pneumococcal Vaccine: 65+ Years Completed [...] this encounter Medical Devices Implanted Type Area Property Custodian Device Identifier Shelf Expiration Date Model / Serial / Lot Lens 23.5 M160l - [id number] - [id number] Implanted:Qty: 1 on 10/03/2015 by Arnol Auguste MD at OR [facility] Left: Eye BAUSCH & LOMB : SURGICAL 11/25/2016 [id number]-75.5 / [id number] / [id number] Lens Intraoc 23.0 - [id number] - [id number] Implanted:Qty: 1 on 06/04/2016 by Flakito Sorto MD at OR [facility] Right: Eye BAUSCH & LOMB 11/25/2020 [id number] / [id number] / documented as of this encounter Advance [...] Agents on File Name Relationship Healthcare Agent Usha marte Communication Juan Garcia Adult Child Health Care Agen t (per Health Care Power of Sack Lifter document) Care Teams Earth Auger Operator Relationship Specialty Start Date End Date Seun Riddle DO [address] [place] [address] PCP - General Family Medicine 12/25/16 documented as of this encounter
--- OUTSIDE RECORDS SUMMARY | 2024-04-18 02:13 | External Medical Summary | Summary of Care ---
Author Name Unknown Organization [facility] Address [address] [facility] [facility] [address] [address] [address] Phone [phone] Care Team Providers Care Forestry Supervisor Name Role Phone BarakSeun javier Blas MELCHOR Primary Care Provider [phone] Reason for Visit * Reason Comments Follow Up * Precert (Within 10 days (routine)) - Authorized Specialty Diagnoses / Procedures Referred By Nedra chiang Referred To Contact Ophthalmology Diagnoses Exudative age-related macular degeneration, right eye, with active choroidal neovascularization (HCC) Procedures CT INJECTION, FARICIMAB-SVOA, 0.[address] INTRAVITREAL NJX PHARMACOLOGIC AGT SPX Mina Christiansen DO [address] [place] [address] Referral ID Status Reason Start Date Expiration Date V isits Requested Visits Authorized [id number] Authorized Precert 07/01/2023 06/27/2099 [id number] Encounter Details Date Type Department Care Team (Late st Contact Info) Description 01/04/2024 1:15 PM EDT Office Visit Ophthalmology, [facility] [address] [place] [address] Mina Christiansen DO [address] [place] [address] Exudative age-related macular degeneration of right eye [...] gene variant (c.1783 C>T, p.(R595W)) detected via [employer]. Increased risk for Familial hypercholesterolemia (FH). Please [...] mRNA, LNP-s, No Pre serve, 2-Dose Series (Taaz) 10/01/2021,04/07/2021,09/14/2020,07/30 COVID-19, LNP-s, No Preserve , Yimi-sucrose, Ages 12+ (Taaz) 04/04/2022 H1N1 2009 Influenza, IM 07/27/2009 PPD [...] - 01/04/2024 1:15 PM EDT [facility] [place] Nursing notes [...] Mina Christiansen DO Vabysmo 6mg lot # [id number] Exp. Date: 09/2025 * Gisella Hope RN [...] Alix Veliz [address] [place] [address] Diogo Cornelius MD [address] [place] [address] Nurse Benigno Veliz [address] [place] [address] 02/14/2024 10:30 AM EDT Laboratory Laboratory [facility] [place] [address] [id number] [place], Lab [facility] [address] [facility] [place] [address] 02/17/2024 2:00 PM EDT Office Visit Family Practice [facility] [place] [address] [place] [address] Sussy Zhu PA-C [address] [facility] [place] [address] 03/16/2024 3:45 PM EDT Office Visit Dermatology [facility] [place] [address] [place] [address] Qian Dorman MD [address] [place] [place] [address] 07/05/2024 1:00 PM EST Office Visit Gynecology/Obstetrics Alix Veliz [address] [place] [address] Backer, MACIE Aldrich [address] [place] [address] Scheduled Orders Name Type Priority Associated Diagnoses [...] D LEVEL ONCE IN A LIFETIME-USE SMARTSET# 54575 Completed 03/15/2006 Pneumococcal Vaccine: 65+ Years Completed [...] this encounter Medical Devices Implanted Type Area Demo Event Specialist Device Identifier Shelf Expiration Date Model / Serial / Lot Lens 23.5 M160l - [id number] - [id number] Implanted:Qty: 1 on 10/03/2015 by Arnol Auguste MD at OR [facility] Left: Eye BAUSCH & LOMB : SURGICAL 11/25/2016 [id number] / [id number] / [id number] Lens Intraoc 23.0 - [id number] - [id number] Implanted:Qty: 1 on 06/04/2016 by Flakito Sorto MD at OR [facility] Right: Eye BAUSCH & LOMB 11/25/2020 [id number] / [id number] / documented as of this encounter Visit [...] Agents on File Name Relationship Healthcare Agent [facility] Communication Juan Garcia Adult Child Health Care Agen t (per Health Care Power of Explosive Ordnance Handler document) Care Teams Forestry Supervisor Relationship Specialty Start Date End Date Seun Riddle DO [address] [place] [address] PCP - General Family Medicine 12/25/16 documented as of this encounter
--- OUTSIDE RECORDS SUMMARY | 2024-04-18 02:14 | External Medical Summary | Summary of Care ---
Author Name Unknown Organization [facility] Address [address] [place] [address] Phone [phone] Care Team Providers Care Supermarket Manager Name Role Phone BarakSeun javier Primary Care Provider Encounter Details Date Type Department Care Team (Late st Contact Info) Description 12/15/2023 Population Health External Data Unspecified Department Allergies Active Allergy Reactions Criticality Noted Date Comments Sulfamethoxazole-Trimethoprim 2019 nausea Nitrofurantoin 2021 nausea Penicillins 03/23/2000 rash Trimethoprim High 04/01/2021 Other reaction(s): Nausea documented as of this encounter (statuses as of 12/15/2023) Medications Medication Sig Dispensed Refills Start Date [...] as of this encounter (statuses as of 12/15/2023) Active Problems Problem Noted Date Diagnosed Date Bronchospasm, exercise-induced 11/17/2023 Spinal enthesopathy, cervical region 07/14/2023 Bilateral nonexudative age-related macular degen eration 05/19/2023 Degenerative disc disease, cervical 09/09/2022 Hyperlipidemia 09/09/2022 History of 2019 novel coronavirus disease (COVID -19) 06/10/2022 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 Increased risk for Familial hypercholesterolemia (FH). Please [...] as of this encounter (statuses as of 12/15/2023) Resolved Problems Problem Noted Date Diagnosed Date [...] as of this encounter (statuses as of 12/15/2023) Immunizations Name Administration Dates Next Due COVID-19 mRNA, LNP-s, No Pre serve, 2-Dose Series ([employer]) 10/01/2021,04/07/2021,09/14/2020,08/24 COVID-19, LNP-s, No Preserve , Yimi-sucrose, [...] Care Team (Late st Contact Info) Description 12/17/2023 11:00 AM EDT Office Visit Family Practice [facility] [place] [address] [facility] [place] [address] Seun Riddle DO [address] [facility] [place] [address] 12/29/2023 2:30 PM EDT Office Visit Gynecology/Obstetrics Alix Alejandros [address] [place] [address] Ny Mccracken CRNP [address] [place] [address] 01/04/2024 1:15 PM EDT Office Visit Ophthalmology, [facility] Alej[facility]ros [place] [address] [place] [address] Mina Christiansen DO [address] [place] [address] 01/10/2024 10:45 AM EDT Office Visit Urogynecology Alix Veliz [address] [place] [address] Diogo Cornelius MD [address] [place] [address] Nurse Benigno Veliz [address] [place] [address] 02/17/2024 2:00 PM EDT Office Visit Family Practice [facility] [address] [place] [address] Sussy Zhu PA-C [address] [facility] [place] [address] 03/16/2024 3:45 PM EDT Office Visit Dermatology [facility] [address] [place] [address] Qian Dorman MD [address] [facility] [place] [address] 07/05/2024 1:00 PM EST Office Visit Gynecology/Obstetrics Alix Veliz [address] [place] [address] Susan Wade CRNP [address] [place] [address] Health Maintenance Due Date Last Done Comments [...] D LEVEL ONCE IN A LIFETIME-USE SMARTSET# [id number] Completed 03/15/2006 Pneumococcal Vaccine: 65+ Years Completed [...] encounter Medical Devices Implanted Type Area Automatic Coin Machine Mechanic Device Identifier Shelf Expiration Date Model / Serial / Lot Lens 23.5 M160l - [id number] - [id number] Implanted:Qty: 1 on 10/03/2015 by Arnol Auguste MD at OR [facility] Left: Eye BAUSCH [employer] LOMB : SURGICAL 11/25/2016 [id number]-57.5 / [id number] / [id number] Lens Intraoc 23.0 - [id number] - [id number] Implanted:Qty: 1 on 06/04/2016 by Flakito Sorto MD at OR [facility] Right: Eye BAUSCH [employer] LOMB 11/25/2020 [id number] / [id number] / documented as of this encounter Advance [...] and were consensually agreed upon. Care Teams Supermarket Manager Relationship Specialty Start Date End Date Seun Riddle DO [address] [facility] [place] [address] PCP - General Family Medicine 12/25/16 documented as of this encounter
--- OUTSIDE RECORDS SUMMARY | 2024-04-18 02:14 | External Medical Summary | Summary of Care ---
Author Name Unknown Organization [facility] Address [address] [place] [address] Phone [phone] Care Team Providers Care Program Therapist Name Role Phone BarakSeun javier Primary Care Provider Encounter Details Date Type Department Care Team (Late st Contact Info) Description 12/28/2023 Population Health External Data Unspecified Department Allergies Active Allergy Reactions Criticality Noted Date Comments Sulfamethoxazole-Trimethopri m 01/03/2020 nausea Penicillins 03/23/2000 rash Trimethoprim High 04/01/2021 Other reaction(s): Nausea documented as of this encounter (statuses as of 12/28/2023) Medications Medication Sig Dispensed Refills Start Date [...] other night 136.607 g 3 11/24/2023 Active Nitrofurantoin Monohyd Macro 100 MG Oral Capsule (Macrobid) Take 1 Capsule by mouth in the morning and 1 Capsule before bedtime. For 10 days. 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 Increased risk for Familial hypercholesterolemia (FH). Please [...] as of this encounter (statuses as of 12/28/2023) Resolved Problems Problem Noted Date Diagnosed Date [...] as of this encounter (statuses as of 12/28/2023) Immunizations Name Administration Dates Next Due COVID-19 mRNA, LNP-s, No Pre serve, 2-Dose Series ([employer]) 10/01/2021,04/07/2021,09/14/2020,08/24 COVID-19, LNP-s, No Preserve , Yimi-sucrose, [...] 1:15 PM EDT Office Visit Ophthalmology, [facility] [address] [place] [address] Mina Christiansen, DO [address] [place] [address] 01/10/2024 10:45 AM EDT Office Visit Urogynecology [facility] [address] [place] [address] Diogo Cornelius MD [address] [place] [address] Nurse Benigno Veliz Mary Ann [address] [place] [address] 02/14/2024 10:30 AM EDT Laboratory Laboratory [facility] [place] [address] [place] [address] [id number] Gloria Lab [facility] [address] [place] [address] 02/17/2024 2:00 PM EDT Office Visit Family Practice [facility] [place] [address] [place] [address] Sussy Zhu PA-C [address] [place] [address] 03/16/2024 3:45 PM EDT Office Visit Dermatology [facility] [place] [address] [place] [address] [address] Qian Dorman MD [address] [place] [address] 07/05/2024 1:00 PM EST Office Visit Gynecology/Obstetrics Alix Veliz [address] [place] [address] BackerSusan CRNP [address] [place] [address] Health Maintenance Due Date Last Done Comments [...] D LEVEL ONCE IN A LIFETIME-USE SMARTSET# [id number] Completed 03/15/2006 Pneumococcal Vaccine: 65+ Years Completed 05/21/2014, 05/05/2006 *BISPHONATE OR OTHER ACCEPTABLE MEDICATION NEEDED FOR OSTEOPOROSIS (REFER TO SMARTSET #1146) Addressed 06/29/2017 (Refused) Overridden wi th the intention of not completing the topic Zoster Vaccines Completed 02/15/2020, 10/2019, 08/24/2019, Additional history exists GARDASIL-HPV IMMUNIZATION SERIES Aged Out No longer eligible based on patient's age to complete this topic Hepatitis B Aged Out No longer eligi ble based on patient's age to complete this topic MENINGOCOCCAL (MENACTRA/MENVEO) Aged Out No longer eligible based on patient's age to complete this topic documented as of this encounter Medical Devices Implanted Type Area Sausage Stuffer Device Identifier Shelf Expiration Date Model / Serial / Lot Lens 23.5 M160l - [id number] - [id number] Implanted:Qty: 1 on 10/03/2015 by Arnol Auguste MD at OR [facility] Left: Eye BAUSCH & LOMB : SURGICAL 11/25/2016 [id number]-69.5 / [id number] / [id number] Lens Intraoc 23.0 - [id number] - [id number] Implanted:Qty: 1 on 06/04/2016 by Flakito Sorto MD at OR [facility] Right: Eye BAUSCH & LOMB 11/25/2020 [id number] / [id number] / documented as of this encounter Advance [...] Agen t (per Health Care Power of Dolly Driver document) Care Teams Program Therapist Relationship Specialty Start Date End Date Seun Riddle DO [address] [place] [address], [place] [address] PCP - General Family Medicine 12/25/16 documented as of this encounter
--- OUTSIDE RECORDS SUMMARY | 2024-04-18 02:14 | External Medical Summary | Summary of Care ---
Author Name Unknown Organization [facility] Address [address] [place] [address] Phone [phone] Care Team Providers Care Program Eligibility Specialist Name Role Phone BarakSeun javier Primary Care Provider [phone] Encounter Details Date Type Department Care Team (Late st Contact Info) Description 12/29/2023 10:30 AM EDT Scheduled Telephone Care Coordination and Integration [address] [place] [address] Arron Rojas [facility] Health Clinical Fellow [address] [place] [address] Allergies Active Allergy Reactions Criticality Noted Date [...] gene variant (c.1783 C>T, p.(R595W)) detected via [employer]. Increased risk for Familial hypercholesterolemia (FH). Please [...] mRNA, LNP-s, No Pre serve, 2-Dose Series ([employer]) 10/01/2021,04/07/2021,09/14/2020,08/24 COVID-19, LNP-s, No Preserve , Yimi-sucrose, [...] Progress Notes * Arron Rojas Community Health Clinical Fellow - 12/29/2023 10:47 AM EDT Telemedicine visit: No Community Health Clinical Fellow (LOLY) documentation: CHW follow up phone call for RNCM and reached the patient's voicemail. CHW left a brief message with my callback information. Bebo Rojas Community Health Worker Lead [facility] [place] [phone] documented in this encounter Plan of Treatment Upcoming Encounters Date Type Department Care Team (Late st Contact Info) Description 01/04/2024 1:15 PM EDT [facility] [address] [place] [address] Mina Christiansen, DO [address] [place] [address] 01/10/2024 10:45 AM EDT Office Visit Urogynecology Alix Alejandros [address] [place] [address] Diogo Cornelius MD [address] [place] [address] Nurse Benigno Veliz [address] [place] [address] 02/14/2024 10:30 AM EDT Laboratory Laboratory [facility] [address] [facility] [place] [phone] Gloria Lab [facility] [address] [facility] [place] [address] 02/17/2024 2:00 PM EDT Office Visit Family Practice [facility] [place] [address] [facility] [place] [address] Sussy Zhu PA-C [address] [facility] [place] [address] 03/16/2024 3:45 PM EDT Office Visit Dermatology [facility] [address] [facility] [place] [address] Qian Dorman MD [address] [facility] [place] [address] 07/05/2024 1:00 PM EST Office Visit Gynecology/Obstetrics [facility] [address] [place] [address] Susan Wade CRNP [address] [facility] [place] [address] Health Maintenance Due Date Last Done Comments [...] D LEVEL ONCE IN A LIFETIME-USE SMARTSET# 33770 Completed 03/15/2006 Pneumococcal Vaccine: 65+ Years Completed [...] this encounter Medical Devices Implanted Type Area Dipper Clock And Watch Hands Device Identifier Shelf Expiration Date Model / Serial / Lot Lens 23.5 M160l - [id number] - [id number] Implanted:Qty: 1 on 10/03/2015 by Arnol Auguste MD at OR [facility] Left: Eye BAUSCH & LOMB : SURGICAL 11/25/2016 [id number] / [id number] / [id number] Lens Intraoc 23.0 - [id number] - [id number] Implanted:Qty: 1 on 06/04/2016 by Flakito Sorto MD at OR [facility] Right: Eye BAUSCH & LOMB 11/25/2020 [id number] / [id number] / documented as of this encounter Advance [...] Agen t (per Health Care Power of Landfill Gas Collection System Operator document) Care Teams Program Eligibility Specialist Relationship Specialty Start Date End Date Seun Riddle DO [address] [place] [address] PCP - General Family Medicine 12/25/16 documented as of this encounter
--- OUTSIDE RECORDS SUMMARY | 2024-04-18 02:14 | External Medical Summary | Continuity of Care Document ---
Author Name Unknown Organization [facility] [address] Address [address] [place], [place] [id number] Encounter [facility] [id number] Date(s): 12/12/23 - 12/12/23 [facility] [address] [place], [place] [id number] Discharge Disposition: Home or Self Care Attending Physician: MD Simon Ramin Referring Physician: MD Scott, Martha Oneill Social History Social History Type Response Sex Female
--- OUTSIDE RECORDS SUMMARY | 2024-04-18 02:14 | External Medical Summary | Summary of Care ---
Author Name Unknown Organization [facility] Address [address] [facility] [address] Phone [phone] Care Team Providers Care Supervisor Sintering Plant Name Role Phone Seun Riddle DO Primary Care Provider [phone] Reason for Visit * Reason Onset Date Comments Hospital Follow-Up Patient is he re to follow-up after being discharged from [facility] on 12/13 due to hypertension, UTI, acute encephalopathy. Patient states that she is still having UTI symptoms but is still taking Bactrim treat it Hospital Follow-Up 12/17/2023 Encounter Details Date Type Department Care Team (Late st Contact Info) Description 12/17/2023 11:00 AM EDT Office Visit Family Practice [facility] [address] [place] [address] Seun Riddle DO [address] [place] [address] Acute cystitis with hematuria*; Acute metabolic encephalopathy; Hospital discharge follow-up; Recurrent UTI; DYSLIPIDEMIA, GOAL TO BE DETERMINED Allergies Active Allergy Reactions Criticality Noted Date Comments Sulfamethoxazole-Trimethopri m 01/03/2020 nausea Penicillins 03/23/2000 rash Trimethoprim High 04/01/2021 Other reaction(s): Nausea documented as of this encounter (statuses as of 12/17/2023) Medications Medication Sig Dispensed Refills Start Date [...] the morning. 90 Tablet 3 12/17/2023 Active Losartan Potassium 25 MG Oral Tablet (Cozaar)Indicati ons:HTN, goal below 140/90 Take 1 Tablet by mouth in the morning. In the morning.. 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 Increased risk for Familial hypercholesterolemia (FH). Please [...] as of this encounter (statuses as of 12/17/2023) Resolved Problems Problem Noted Date Diagnosed Date [...] as of this encounter (statuses as of 12/17/2023) Immunizations Name Administration Dates Next Due COVID-19 mRNA, LNP-s, No Pre serve, 2-Dose Series (Vivid [employer]) 10/01/2021,04/07/2021,09/14/2020,08/24 COVID-19, LNP-s, No Preserve , Yimi-sucrose, [...] Sign Reading Time Taken Comments Blood Pressure 136/84 12/17/2023 11:03 AM EDT Pulse 79 12/17/2023 11:03 AM EDT Temperature 36.4 C (97.6 F) 12/17/2023 11:03 AM E DT Respiratory Rate 16 12/17/2023 11:03 AM EDT Oxygen Saturation 95% 12/17/2023 11:03 AM EDT Inhaled Oxygen Concentration - - Weight 50.9 kg (112 lb 3.2 oz) 12/17/2023 11:03 AM EDT Height 160 cm (5' 2.99") 12/17/2023 11:03 AM EDT Body Mass Index 19.88 12/17/2023 11:03 AM EDT documented in this encounter Progress Notes * Seun Riddle, - 12/17/2023 11:10 AM EDT Subjective: Rachel Garcia is a 82 year old female. Chief Complaint Patient presents with Hospital Follow-Up Patient is here to follow-up after being discharged from [facility] on 12/13 due to hypertension, UTI, acute encephalopathy. Patient states that she is still having UTI symptoms but is still taking Bactrimtreat it Hospital Follow-Up HPI: Pt to the hospital on 12/11 with acute encephalopathy. She was discharged on 12/13. Se was ruledout for stroke with CT imaging. UA was abnormal and confirmed a UTI. She improved from a mental standpoint and returned to her baseline. Her urine culture showed Citrobacter resistent to Rocephin. She was put on Macrobid after discussing her history of nausea on it. Her urine was sensitive to macrobi Her Losartan was increased for her BP. She was already seeing urogyn and had a pessary placed. We discussed the cause of her symptoms. We discussed what was found and not found. They increased her Losartan from 25 mg to 100 mg. She says this morning she had some low back pain. IT cleared up on it's own. She used a cold patch and aleve to help. Currently no urinary symptoms. No lightheadedness. No burning with urination and no blood in her urine. Still on Macrobid. Will put in standing urine orders. Urogyn found that her pessary was too big. They made an adjustment and we're hoping this helps going forward also. We checked over her meds together. We discussed AZO and cranberry juice. PMHx, meds, and allergies reviewed Patient Active Problem List Diagnosis HTN, goal [...] other night 136.607 g 3 Losartan Potassium 25 MG Oral Tablet (Cozaar) Take 1 Tablet by mouth in the morning. In the morning.. (Patient taking differently: Take 4 Tablets by mouth in the morning. Take 2 tablets by mouth in the morning..) 90 Tablet 3 Nitrofurantoin Monohyd Macro 100 MG Oral Capsule (Macrobid) Take 1 Capsule by mouth in the morning and 1 Capsule before bedtime. For 10 days. Ondansetron HCl 4 MG Oral Tablet Take 1 Tablet by mouth every 6 hours as needed for Nausea. 30 Tablet 5 Current Facility-Administered Medications Medication Dose Route Frequency Provider Last Rate Last Admin Aflibercept (Eylea) intraviteal prefilled syringe 2 mg 2 mg Intravitreal PRN Mina Christiansen,DO 2 mg at 06/09/23 1107 ROPivacaine (Naropin) inj 1.5 mg 1.5 mg Injection PRN Mina Christiansen, DO 1.5 mg at 11/30/23 1101 Faricimab-svoa (Vabysmo) intravitreal inj 6 mg 6 mg Intravitreal PRN Mina Christiansen T, DO 6 mgat 11/30/23 1101 Review of patient's allergies indicates: Allergen Reactions Trimethoprim Other reaction(s): Nausea Bactrim [Sulfamethoxazole-Trimethoprim] nausea Macrobid [Nitrofurantoin] nausea Penicillins rash OBJECTIVE: BP 136/84 | Pulse 79 | Temp 36.4 C (97.6 F) (Tympanic) | Resp 16 | Ht 1.6 m (5' 2.99") | Wt 50.9 kg (112 lb 3.2 oz) | SpO2 95% | BMI 19.88 kg/m | BSA 1.5 m Estimated body mass index is 19.88 kg/m as calculated from the following: Height as of this encounter: 1.6 m (5' 2.99"). Weight as of this encounter: 50.9 kg (112 lb 3.2 oz). BP Readings from Last 3 Encounters: 12/17/23 136/84 11/24/23 140/70 11/17/23 128/60 Wt Readings from Last 3 Encounters: 12/17/23 50.9 kg (112 lb 3.2 oz) 11/24/23 52.2 kg (115 lb) 11/17/23 51.4 kg (113 lb 6.4 oz) ROS: Negative except for above PHYSICAL EXAM: General: alert, healthy, and no distress Head: Normocephalic, No masses, lesions, tenderness or abnormalities Heart: regular rate & rhythm, no murmur, and no gallops Lungs: chest symmetric with normal AP diameter, no chest deformities noted, no chest wall tenderness, lungs clear to auscultation Back: no pain to palpation ASSESSMENT/Plan Acute cystitis with hematuria (Primary) - DISCH MED RECON CUR MED LIS Acute metabolic encephalopathy - DISCH MED RECON CUR MED LIS Hospital discharge follow-up - DISCH MED RECON CUR MED LIS Recurrent UTI - URINALYSIS, REFLEX TO MICROSCOPIC; Standing - CULTURE, URINE, QUANTITATIVE; Standing DYSLIPIDEMIA, GOAL TO BE DETERMINED - LIPID PANEL WITH DIRECT LDL IF TG IS HIGH; Future; Expected date: 03/18/2024 - COMPREHENSIVE METABOLIC PANEL; Future; Expected date: 03/18/2024 Other orders - Losartan Potassium 100 MG Oral Tablet (Cozaar); Take 1 Tablet by mouth in the morning. I spent a total of 30 minutes on the date of service in preparation, delivery, and documentation ofthe care provided to this patient, excluding any time spent on the performance of any procedure or separately billable services. We discussed her next Losartan script being one pill daily as opposed to the two 50s she has currently. UA and culture standing orders placed for future symptoms. The above was discussed and understanding was expressed. Seun Riddle DO documented in this encounter Nursing Notes * Lyssa Gay, BOBBY ASSIST - 12/17/2023 11:03 AM EDT Chief Complaint Patient presents with Hospital Follow-Up Patient is here to follow-up after being discharged from [facility] on 12/13 due to hypertension, UTI, acute encephalopathy. Patient states that she is still having UTI symptoms but is still taking Bactrimtreat it documented in this encounter Plan of Treatment Upcoming Encounters Date Type Department Care Team (Late st Contact Info) Description 12/29/2023 2:30 PM EDT Office Visit Gynecology/Obstetrics [facility] [address] [place] [address] Ny Mccracken CRNP [address] [place] [address] 01/04/2024 1:15 PM EDT [facility] [address] [place] [address] Mina Christiansen DO [address] [place] [address] 01/10/2024 10:45 AM EDT [facility] [address] [place] [address] Diogo Cornelius MD [address] [place] [address] Nurse Benigno Veliz [address] [place] [address] 02/17/2024 2:00 PM EDT Office Visit Family Practice [facility] [address] [place] [address] Sussy Zhu PA-C [address] [place] [address] 03/16/2024 3:45 PM EDT Office Visit Dermatology [place] [address] [facility] [place] [address] Qian Dorman MD [address] [place] [address] 07/05/2024 1:00 PM EST Office Visit Gynecology/Obstetrics [facility] [address] [place] [address] BackerSusan CRNP [address] [place] [address] Scheduled Orders Name Type Priority Associated Diagnoses Orde r Schedule URINALYSIS, REFLEX TO MICROSCOPIC Lab Routine Recurrent UTI 10 Occurrences starting 12/17/2023 until 12/16/2024 CULTURE, URINE, QUANTITATIVE Lab Routine Recurrent UTI 10 Occurrences starting 12/17/2023 until 12/16/2024 LIPID PANEL WITH DIRECT LDL IF TG IS HIGH Lab Routine DYSLIPIDEMIA, GOAL TO BE DETERMINED Expected: 03/18/2024, Expires: 12/16/2024 COMPREHENSIVE METABOLIC PANEL Lab Routine DYSLIPIDEMIA, GOAL TO BE DETERMINED Expected: 03/18/2024 (Approximate), Expires: 12/16/2024 Health Maintenance Due Date Last Done Comments [...] D LEVEL ONCE IN A LIFETIME-USE SMARTSET# 08024 Completed 03/15/2006 Pneumococcal Vaccine: 65+ Years Completed [...] this encounter Medical Devices Implanted Type Area Human Development Professor Device Identifier Shelf Expiration Date Model / Serial / Lot Lens 23.5 M160l - [id number] - [id number] Implanted:Qty: 1 on 10/03/2015 by Arnol Auguste MD at OR [facility] Left: Eye BAUSCH & LOMB : SURGICAL 11/25/2016 [id number] / [id number] / [id number] Lens Intraoc 23.0 - [id number] - [id number] Implanted:Qty: 1 on 06/04/2016 by Flakito Sorto MD at OR [facility] Right: Eye BAUSCH & LOMB 11/25/2020 [id number] / [id number] / documented as of this encounter Visit Diagnoses Diagnosis Acute cystitis with hematuria- Primary Acute cystitis Acute metabolic encephalopathy Hospital discharge follow-up Other follow-up examination Recurrent UTI Urinary tract infection, site not specified DYSLIPIDEMIA, GOAL TO BE DETERMINED Other and [...] Agents on File Name Relationship Healthcare Agent [facility] Communication Juan Garcia Adult Child Health Care Phuc chiang (per Health Care Power of Clinical Quality Assurance Associate document) Care Teams Supervisor Sintering Plant Relationship Specialty Start Date End Date Seun Riddle DO [address] [place] [address] PCP - General Family Medicine 12/25/16 documented as of this encounter
--- OUTSIDE RECORDS SUMMARY | 2024-04-18 02:14 | External Medical Summary | Summary of Care ---
Author Name Unknown Organization [facility] Address [address] [place] [address] Phone [phone] Care Team Providers Care Rib Trim Separator Name Role Phone BarakSeun javier Primary Care Provider [phone] Encounter Details Date Type Department Care Team (Late st Contact Info) Description 12/29/2023 Population Health External Data Unspecified Department Allergies [...] gene variant (c.1783 C>T, p.(R595W)) detected via [employer]ook. Increased risk for Familial hypercholesterolemia (FH). Please [...] mRNA, LNP-s, No Pre serve, 2-Dose Series (medidametrics) 10/01/2021,04/07/2021,09/14/2020,08/24 COVID-19, LNP-s, No Preserve , Yimi-sucrose, [...] 1:15 PM EDT Office Visit Ophthalmology, [facility] [address] [place] [address] Mina Christiansen, DO [address] [place] [address] 01/10/2024 10:45 AM EDT Office Visit Urogynecology [facility] [address] [place] [address] Diogo Cornelius MD [address] [place] [address] Nurse Benigno Veliz Mary Ann [address] [place] [address] 02/14/2024 10:30 AM EDT Laboratory Laboratory [facility] [address] [place] [address] [place] [id number] [facility] [address] [place] [place] [address] 02/17/2024 2:00 PM EDT Office Visit Family Practice [facility] [address] [place] [address] Sussy Zhu PA-C [address] [place] [address] 03/16/2024 3:45 PM EDT Office Visit Dermatology [facility] [address] [place] [address] Qian Dorman MD [address] [place] [address] 07/05/2024 1:00 PM EST Office Visit Gynecology/Obstetrics [facility] [address] [place] [address] Backer, MACIE Aldrich [address] [place] [address] Health Maintenance Due Date Last Done Comments [...] D LEVEL ONCE IN A LIFETIME-USE SMARTSET# 99996 Completed 03/15/2006 Pneumococcal Vaccine: 65+ Years Completed [...] this encounter Medical Devices Implanted Type Area Gmat Instructor Device Identifier Shelf Expiration Date Model / Serial / Lot Lens 23.5 M160l - [id number] - [id number] Implanted:Qty: 1 on 10/03/2015 by Arnol Auguste MD at OR [facility] Left: Eye BAUSCH & LOMB : SURGICAL 11/25/2016 [id number] / [id number] / [id number] Lens Intraoc 23.0 - [id number] - [id number] Implanted:Qty: 1 on 06/04/2016 by Flakito Sorto MD at OR [facility] Right: Eye BAUSCH & LOMB 11/25/2020 [id number] / [id number] / documented as of this encounter Advance [...] Agen t (per Health Care Power of Sba Business Development Officer document) Care Teams Rib Trim Separator Relationship Specialty Start Date End Date Seun Riddle DO [facility] [place] [address] [place] [address] PCP - General Family Medicine 12/25/16 documented as of this encounter
--- OUTSIDE RECORDS SUMMARY | 2024-04-18 02:14 | External Medical Summary | Summary of Care ---
Author Name Unknown Organization [facility] Address [address] [place] [address] Phone [phone] Care Team Providers Care Knitter Helper Name Role Phone BarakSeun javier Primary Care Provider Encounter Details Date Type Department Care Team (Late st Contact Info) Description 12/27/2023 Population Health External Data Unspecified Department Allergies Active Allergy Reactions Criticality Noted Date Comments Sulfamethoxazole-Trimethopri m 01/03/2020 nausea Penicillins 03/23/2000 rash Trimethoprim High 04/01/2021 Other reaction(s): Nausea documented as of this encounter (statuses as of 12/27/2023) Medications Medication Sig Dispensed Refills Start Date [...] as of this encounter (statuses as of 12/27/2023) Active Problems Problem Noted Date Diagnosed Date Bronchospasm, exercise-induced 11/17/2023 Spinal enthesopathy, cervical region 07/14/2023 Bilateral nonexudative age-related macular degen eration 05/19/2023 Degenerative disc disease, cervical 09/09/2022 Hyperlipidemia 09/09/2022 History of 2019 novel coronavirus disease (COVID -19) 06/10/2022 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 Increased risk for Familial hypercholesterolemia (FH). Please [...] as of this encounter (statuses as of 12/27/2023) Resolved Problems Problem Noted Date Diagnosed Date [...] as of this encounter (statuses as of 12/27/2023) Immunizations Name Administration Dates Next Due COVID-19 mRNA, LNP-s, No Pre serve, 2-Dose Series ([employer]) 10/01/2021,04/07/2021,09/14/2020,08/24 COVID-19, LNP-s, No Preserve , Yimi-sucrose, [...] Care Team (Late st Contact Info) Description 12/27/2023 10:10 AM EDT Laboratory [facility] [address] [place] [address] [phone] [place] [address] 01/04/2024 1:15 PM EDT Office Visit Ophthalmology, [facility] [address] [facility] [place] [address] Mina Christiansen DO [address] [place] [address] 01/10/2024 10:45 AM EDT Office Visit Urogynecology [facility] [address] [facility] [place] [address] Diogo Cornelius MD [address] [place] [address] Nurse Benigno Veliz [address] [place] [address] 02/14/2024 10:30 AM EDT Laboratory Laboratory [place] [facility] [place] [address] [place] [address] [phone] [place] [address] 02/17/2024 2:00 PM EDT Office Visit [place] [address] Sussy Zhu PA-C [address] [place] [address] 03/16/2024 3:45 PM EDT Office Visit Dermatology [place] [place] [address] [place] [address] Qian Dorman MD [address] [place] [address] [place] [address] 07/05/2024 1:00 PM EST Office Visit Gynecology/Obstetrics [facility] [address] [place] [address] BackerSusan CRNP [address] [place] [address] Health Maintenance Due Date Last Done Comments [...] D LEVEL ONCE IN A LIFETIME-USE SMARTSET# 21617 Completed 03/15/2006 Pneumococcal Vaccine: 65+ Years Completed 05/21/2014, 05/05/2006 *BISPHONATE OR OTHER ACCEPTABLE MEDICATION NEEDED FOR OSTEOPOROSIS (REFER TO SMARTSET #1146) Addressed 06/29/2017 (Refused) Overridden wi th the intention of not completing the topic Zoster Vaccines Completed 02/15/2020, 03/0 10/2019, 08/24/2019, Additional history exists Influenza Vaccine [...] this encounter Medical Devices Implanted Type Area Electrical Automation Engineer Device Identifier Shelf Expiration Date Model / Serial / Lot Lens 23.5 M160l - [id number] - [id number] Implanted:Qty: 1 on 10/03/2015 by Arnol Auguste MD at OR [facility] Left: Eye BAUSCH & LOMB : SURGICAL 11/25/2016 [id number] / [id number] / [id number] Lens Intraoc 23.0 - [id number] - [id number] Implanted:Qty: 1 on 06/04/2016 by Flakito Sorto MD at OR [facility] Right: Eye BAUSCH & LOMB 11/25/2020 [id number] / [id number] / documented as of this encounter Advance [...] Agents on File Name Relationship Healthcare Agent [facility] p Communication Juan Garcia Adult Child Health Care Agen t (per Health Care Power of Poll Clerk document) Care Teams Knitter Helper Relationship Specialty Start Date End Date Seun Riddle DO [address] [place] [address] PCP - General Family Medicine 12/25/16 documented as of this encounter
--- OUTSIDE RECORDS SUMMARY | 2024-04-18 02:14 | External Medical Summary | Summary of Care ---
Author Name Unknown Organization [facility] Address [address] [place] [address] Phone [phone] Care Team Providers Care Resin Painter Name Role Phone BarakSeun javier Primary Care Provider Reason for Visit * Reason Onset Date Comments case management 12/28/2023 Encounter Details Date Type Department Care Team (Late st Contact Info) Description 12/28/2023 Telephone Care Coordination and Integration [address] [place] [address] Rosalind Maya RN [address], [place] [id number] case management Allergies Active Allergy Reactions Criticality Noted Date [...] gene variant (c.1783 C>T, p.(R595W)) detected via [employer]. Increased risk for Familial hypercholesterolemia (FH). Please [...] mRNA, LNP-s, No Pre serve, 2-Dose Series (Energy) 10/01/2021,04/07/2021,09/14/2020,08/24 COVID-19, LNP-s, No Preserve , Yimi-sucrose, [...] encounter Miscellaneous Notes * Telephone Encounter - Rosalind Maya RN - 12/28/2023 9:04 AM EDT Please discharge the patient from [facility] Device(s)/IVR to be discontinued: BP CUFF due to REFUSAL. Thank you. documented in this encounter Plan of Treatment Upcoming Encounters Date Type Department Care Team (Late st Contact Info) Description 01/04/2024 1:15 PM EDT Office Visit Ophthalmology, [facility] [address] [place] [address] Mina Christiansen DO [address] [place] [address] 01/10/2024 10:45 AM EDT Office Visit Urogynecology [facility] [address] [place] [address] Diogo Cornelius MD [address] [place] [address] Nurse Benigno Veliz [address] [place] [address] 02/14/2024 10:30 AM EDT Laboratory Laboratory [place] [address] [place] [address] [place] [facility] [address] [facility] [address] [place] [address] 02/17/2024 2:00 PM EDT Office Visit Family Practice [facility] [place] [address] [facility] [place] [address] Sussy Zhu PA-C [address] [facility] [address] [place] [address] 03/16/2024 3:45 PM EDT Office Visit Dermatology [facility] [place] [address] [facility] [place] [address] Qian Dorman MD [address] [facility] [place] [address] 07/05/2024 1:00 PM EST Office Visit Gynecology/Obst[facility] [address] [place] [address] Susan Wade CRNP [address] [place] [address] Health Maintenance Due Date Last Done Comments [...] D LEVEL ONCE IN A LIFETIME-USE SMARTSET# 75445 Completed 03/15/2006 Pneumococcal Vaccine: 65+ Years Completed [...] this encounter Medical Devices Implanted Type Area Dryland Farmer Device Identifier Shelf Expiration Date Model / Serial / Lot Lens 23.5 M160l - [id number] - [id number] Implanted:Qty: 1 on 10/03/2015 by Arnol Auguste MD at OR [facility] Left: Eye BAUSCH & LOMB : SURGICAL 11/25/2016 [id number]-00.5 / [id number] / [id number] Lens Intraoc 23.0 - [id number] - [id number] Implanted:Qty: 1 on 06/04/2016 by Flakito Sorto MD at OR [facility] Right: Eye BAUSCH & LOMB 11/25/2020 [id number] / [id number] / documented as of this encounter Advance [...] Agesamantha t (per Health Care Power of Server Support Technician document) Care Teams Resin Painter Relationship Specialty Start Date End Date Seun Riddle DO [address] [facility] [place] [address] PCP - General Family Medicine 12/25/16 documented as of this encounter
--- OUTSIDE RECORDS SUMMARY | 2024-04-18 02:14 | External Medical Summary ---
Author Name Unknown Address Unknown Organization K[facility] [address] [place] [address] Laboratory Report Ordering Provider Test Date Status CARROL BARNES 12/27/2023 10:07:17 Final Observation Date Value Abnormality Reference (Units ) Status Color of Urine by Auto 12/27/2023 10:07:17 Yellow Light Yellow, Yellow, Dark Yellow Final Clarity, Urine 12/27/2023 10:07:17 Clear Clear Final Glucose [Mass/volume] in Urine by Automated test strip 12/27/2023 10:07:17 Negative Negative (mg/dL) Final Bilirubin.total [Presence] in Urine by Automated test strip 12/27/2023 10:07:17 Negative Negative Final Ketones [Mass/volume] in Urine by Automated test strip 12/27/2023 10:07:17 Trace Abnormal Negative (mg/dL) Final Specific gravity, Urine 12/27/2023 10:07:17 1.025 1.003-1.030 Final Hemoglobin [Presence] in Urine by Automated test strip 12/27/2023 10:07:17 Trace Abnormal Negative Final pH, Urine 12/27/2023 10:07:17 5.5 5.0-7.5 (Units) Final Protein [Mass/volume] in Urine by Automated test strip 12/27/2023 10:07:17 Trace Abnormal Negative (mg/dL) Final Urobilinogen [Mass/volume] in Urine by Automated test strip 12/27/2023 10:07:17 0.2 0.2, 1.0 (mg/dL) Final Nitrite [Presence] in Urine by Automated test strip 12/27/2023 10:07:17 Negative Negative Final Leukocyte esterase [Presence] in Urine by Automated test strip 12/27/2023 10:07:17 Moderate Abnormal Negative Final Performing Location [facility] [address] [place] [address]
--- OUTSIDE RECORDS SUMMARY | 2024-04-18 02:14 | External Medical Summary | Summary of Care ---
Author Name Unknown Organization [facility] Address [address] [facility] [place] [address] Phone [phone] Care Team Providers Care Hvac Instructor Name Role Phone SwatiSeun wilkinson Primary Care Provider Reason for Visit * Reason Comments Outpatient Testing Encounter Details Date Type Department Care Team (Late st Contact Info) Description 12/27/2023 10:10 AM EDT Laboratory Laboratory [facility] [place] [address] [place] [phone] [place], [facility] [address] [place] [address] Recurrent UTI Allergies Active Allergy Reactions Criticality [...] gene variant (c.1783 C>T, p.(R595W)) detected via [employer]. Increased risk for Familial hypercholesterolemia (FH). Please [...] mRNA, LNP-s, No Pre serve, 2-Dose Series ([employer] Corks) 10/01/2021,04/07/2021,09/14/2020,08/24 COVID-19, LNP-s, No Preserve , Yimi-sucrose, [...] PM EDT Office Visit Ophthalmology, [facility] [place] [address] [place] [address] Mina Christiansen DO [address] [place] [address] 01/10/2024 10:45 AM EDT Office Visit Urogynecology [facility] [address] [place] [address] Diogo Cornelius MD [address] [place] [address] Nurse Benigno Veliz [address] [place] [address] 02/14/2024 10:30 AM EDT Laboratory Laboratory [place] [facility] [place] [address] [place] [address] [phone] Nikolai Catsro [address] [place] [address] 02/17/2024 2:00 PM EDT Office Visit Family Practice [place] [facility] [place] [address] [place] [address] [address] Sussy Zhu PA-C [address] [place] [address] 03/16/2024 3:45 PM EDT Office Visit Dermatology [place] [place] [address] [facility] [place] [address] Qian Dorman MD [address] [place] [address] 07/05/2024 1:00 PM EST Office Visit Gynecology/Obstetrics [facility] [address] [facility] [place] [address] [place], MACIE Aldrich [address] [place] [address] Pending Results Name Type Priority Associated Diagnoses Date /Time URINALYSIS, REFLEX TO MICROSCOPIC Lab Routine Recurrent UTI 12/27/2023 10:07 AM EDT CULTURE, URINE, QUANTITATIVE Lab Routine Recurrent UTI 12/27/2023 10:07 AM EDT MICROSCOPIC EXAM, URINE Lab Routine Recurrent UTI 12/27/2023 10:07 AM EDT Health Maintenance Due Date [...] D LEVEL ONCE IN A LIFETIME-USE SMARTSET# 36543 Completed 03/15/2006 Pneumococcal Vaccine: 65+ Years Completed [...] encounter Medical Devices Implanted Type Area Barrel Washer Device Identifier Shelf Expiration Date Model / Serial / Lot Lens 23.5 M160l - [id number] - [id number] Implanted:Qty: 1 on 10/03/2015 by Arnol Auguste MD at OR [facility] Left: Eye [employer] LOM[employer] : SURGICAL 11/25/2016 [id number]-63.5 / [id number] / [id number] Lens Intraoc 23.0 - [id number] - [id number] Implanted:Qty: 1 on 06/04/2016 by Flakito Sorto MD at OR [facility] Right: Eye BAUSCH [employer] LOMB 11/25/2020 [id number] / [id number] / documented as of this encounter Visit [...] Agen t (per Health Care Power of Career And Guidance Counselor document) Care Teams Hvac Instructor Relationship Specialty Start Date End Date Seun Riddle DO [address] [place] [address] PCP - General Family Medicine 12/25/16 documented as of this encounter
--- OUTSIDE RECORDS SUMMARY | 2024-04-18 02:14 | External Medical Summary | Summary of Care ---
Author Name Unknown Organization [facility] Address [address] [place] [address] Phone [phone] Care Team Providers Care Vice President Of Customer Service Name Role Phone BarakSeun javier Primary Care Provider Encounter Details Date Type Department Care Team (Late st Contact Info) Description 12/24/2023 12:40 PM EDT Scheduled Telephone Care Coordination and Integration [address] [place] [address] Cat Thomas [facility] Director Of Product Marketing [address] [place] [address] Allergies Active Allergy Reactions Criticality Noted Date Comments Sulfamethoxazole-Trimethopri m 01/03/2020 nausea Penicillins 03/23/2000 rash Trimethoprim High 04/01/2021 Other reaction(s): Nausea documented as of this encounter (statuses as of 12/24/2023) Medications Medication Sig Dispensed Refills Start Date [...] as of this encounter (statuses as of 12/24/2023) Active Problems Problem Noted Date Diagnosed Date Bronchospasm, exercise-induced 11/17/2023 Spinal enthesopathy, cervical region 07/14/2023 Bilateral nonexudative age-related macular degen eration 05/19/2023 Degenerative disc disease, cervical 09/09/2022 Hyperlipidemia 09/09/2022 History of 2019 novel coronavirus disease (COVID -19) 06/10/2022 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 Increased risk for Familial hypercholesterolemia (FH). Please [...] as of this encounter (statuses as of 12/24/2023) Resolved Problems Problem Noted Date Diagnosed Date [...] as of this encounter (statuses as of 12/24/2023) Immunizations Name Administration Dates Next Due COVID-19 mRNA, LNP-s, No Pre serve, 2-Dose Series ([employer]) 10/01/2021,04/07/2021,09/14/2020,08/24 COVID-19, LNP-s, No Preserve , Yimi-sucrose, [...] as of this encounter Progress Notes * Cat Thomas [facility] Director Of Product Marketing - 12/24/2023 12:40 PM EDT Telemedicine visit: No Community Health Director Of Product Marketing (LOLY) documentation: CHW follow up call per VELVET Molina Pt reports she does have AMC cuff, but is not going to use it. She states "I am 82 and "it's just too much." PT/ OT has resumed Pt is reading BP at her home with her own BP cuff. The readings are 127/79. Red Flags: Dizziness/ headaches, confusion, changes in urine habits. Provided pt with contact info for CM documented in this encounter Plan of Treatment Upcoming Encounters Date Type Department Care Team (Late st Contact Info) Description 12/27/2023 10:10 AM EDT Laboratory Laboratory [place] [address] [place] [phone] Nikolai Castro [address] [place] [address] 12/29/2023 2:30 PM EDT Office [facility] [address] [place] [address] Ny Mccracken CRNP [address] [place] [address] 01/04/2024 1:15 PM EDT [facility] [address] [email or web address] [place] [address] Mina Christiansen DO [address] [place] [address] 01/10/2024 10:45 AM EDT Office Visit Urogynecology [facility] [address] [place] [address] Diogo Cornelius MD [address] [place] [address] Nurse Benigno Veliz [facility] [address] [place] [address] 02/14/2024 10:30 AM EDT Laboratory Laboratory [facility] [address] [place] [phone] Nikolai Castro [facility] [address] [place], [place] [address] 02/17/2024 2:00 PM EDT Office Visit Family Practice [facility] [address] [place], [place] [address] Sussy Zhu PA-C [address] [place], [place] [address] 03/16/2024 3:45 PM EDT Office Visit Dermatology [facility] [address] [place] [address] Qian Dorman MD [address] [place], [place] [address] 07/05/2024 1:00 PM EST Office Visit Gynecology/Obstetrics [facility] [address] [place] [address] Susan Wade CRNP [address] [place] [address] Health Maintenance Due Date Last Done Comments [...] D LEVEL ONCE IN A LIFETIME-USE SMARTSET# 29531 Completed 03/15/2006 Pneumococcal Vaccine: 65+ Years Completed [...] encounter Medical Devices Implanted Type Area Human Resources Benefits Coordinator Device Identifier Shelf Expiration Date Model / Serial / Lot Lens 23.5 M160l - [id number] - [id number] Implanted:Qty: 1 on 10/03/2015 by Arnol Auguste MD at OR [facility] Left: Eye [employer]CH [employer] LOMB : SURGICAL 11/25/2016 [id number]-99.5 / [id number] / [id number] Lens Intraoc 23.0 - [id number] - [id number] Implanted:Qty: 1 on 06/04/2016 by Flakito Sorto MD at OR [facility] Right: Eye BAUSCH [employer] LOMB 11/25/2020 [id number] / [id number] / documented as of this encounter Advance [...] Agents on File Name Relationship Healthcare Agent Ashishoh estuardo Communication Juan Garcia Adult Child Health Care Agen t (per Health Care Power of Grape Pruner document) Care Teams Vice President Of Customer Service Relationship Specialty Start Date End Date Seun Riddle DO [address] [place] [address] PCP - General Family Medicine 12/25/16 documented as of this encounter
--- OUTSIDE RECORDS SUMMARY | 2024-04-18 02:14 | External Medical Summary | Summary of Care ---
Author Name Unknown Organization [facility] Address [address] [place] [address] Phone [phone] Care Team Providers Care Reinforcing Steel Machine Operator Name Role Phone BarakSeun javier Primary Care Provider Encounter Details Date Type Department Care Team (Late st Contact Info) Description 12/16/2023 Telephone Access Center, [place] [facility] [address] [facility] *DO NOT REMOVE THIS DEPARTMENT* [place] [address] Request, External Referral Allergies Active Allergy Reactions Criticality Noted Date Comments Sulfamethoxazole-Trimethoprim 2019 nausea Nitrofurantoin 2021 nausea Penicillins 03/23/2000 rash Trimethoprim High 04/01/2021 Other reaction(s): Nausea documented as of this encounter (statuses as of 12/16/2023) Medications Medication Sig Dispensed Refills Start Date [...] Active Losartan Potassium 25 MG Oral Tablet (Cozaar)Indication s:HTN, goal below 140/90 Take 1 Tablet by mouth in the morning. In the morning.. 90 Tablet 3 11/26/2023 Active Additional Information Patient taking differently: 50 mgOral Daily(AM),Take 2 tablets by mouth in the morning., Reported on 12/15/2023 Nitrofurantoin Monohyd Macro 100 MG Oral Capsule (Macrobid) Take 1 Capsule by mouth in the morning and 1 Capsule before bedtime. For 10 days. 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 Increased risk for Familial hypercholesterolemia (FH). Please [...] as of this encounter (statuses as of 12/16/2023) Resolved Problems Problem Noted Date Diagnosed Date [...] as of this encounter (statuses as of 12/16/2023) Immunizations Name Administration Dates Next Due COVID-19 mRNA, LNP-s, No Pre serve, 2-Dose Series ([employer]) 10/01/2021,04/07/2021,09/14/2020,08/24 COVID-19, LNP-s, No Preserve , Yimi-sucrose, [...] encounter Miscellaneous Notes * Telephone Encounter - Tamar Cunha LPN - 12/16/2023 11:03 AM EDT Last OV note faxed. * Telephone Encounter - Arleth Mariee OSA - 12/16/2023 10:41 AM EDT Good Afternoon [facility] calling to get records faxed Fax [phone] documented in this encounter Plan of Treatment Upcoming Encounters Date Type Department Care Team (Late st Contact Info) Description 12/17/2023 11:00 AM EDT Office Visit Family Practice [place] [address] [place] [address] Seun Riddle DO [address] [place] [address] 12/29/2023 2:30 PM EDT Office Visit Gynecology/Obstetrics [facility] [address] [place] [address] Ny Mccracken CRNP [address] [place] [address] 01/04/2024 1:15 PM EDT [facility] [address] [place] [address] Mina Christiansen DO [address] [place] [address] 01/10/2024 10:45 AM EDT Office Visit Urogynecology [facility] [address] [place] [address] Diogo Cornelius MD [address] [place] [address] Nurse Jose Alfredo [facility] [place] [address] [place] [address] 02/17/2024 2:00 PM EDT Office Visit Family Practice [facility] [address] [place] [address] Sussy Zhu PA-C [address] [facility] [place] [address] 03/16/2024 3:45 PM EDT Office Visit Dermatology [facility] [address] [place] [address] Qian Dorman MD [address] [place] [address] 07/05/2024 1:00 PM EST [facility] [address] [place] [address] Susan Wade CRNP [address] [place] [address] Health Maintenance Due Date Last Done Comments [...] D LEVEL ONCE IN A LIFETIME-USE SMARTSET# 59081 Completed 03/15/2006 Pneumococcal Vaccine: 65+ Years Completed [...] this encounter Medical Devices Implanted Type Area Car Salesman Device Identifier Shelf Expiration Date Model / Serial / Lot Lens 23.5 M160l - [id number] - [id number] Implanted:Qty: 1 on 10/03/2015 by Arnol Auguste MD at OR [facility] Left: Eye BAUSCH [employer] LOMB : SURGICAL 11/25/2016 [id number]-96.5 / [id number] / [id number] Lens Intraoc 23.0 - [id number] - [id number] Implanted:Qty: 1 on 06/04/2016 by Flakito Sorto MD at OR [facility] Right: Eye BAUSCH [employer] LOMB 11/25/2020 [id number] / [id number] / documented as of this encounter Advance [...] Agents on File Name Relationship Healthcare Agent [facility] p Communication Juan Garcia Adult Child Health Care Sukhin t (per Health Care Power of Truck Switcher document) Care Teams Reinforcing Steel Machine Operator Relationship Specialty Start Date End Date Seun Riddle DO [address] [place] [address] PCP - General Family Medicine 12/25/16 documented as of this encounter
--- OUTSIDE RECORDS SUMMARY | 2024-04-18 02:14 | External Medical Summary ---
Author Name Unknown Address Unknown Organization [id number]:[facility] [place] [address] [place] [id number] Laboratory Report Ordering Provider Test Date Status CAMERONCARROL 12/27/2023 10:07:17 Final Observation Date Value Abnormality Reference (Units) Status Bacteria identified in Specimen by Culture 12/27/2023 10:07:17 No significant growth Final Test: Culture, Urine, Quanti tative
Specimen Source: Urine, Clean Catch
Specimen Type: Urine
Specimen Date: 12/27/2023 1007
Result Date: 12/28/2023 1102
Result Status: Final result
Resulting Lab: [facility] [place]
[address]
[place] [id number]

CULTURE

No significant growth

null Performing Location [facility] [place] [address] [facility] [address]
--- NOTE | 2024-04-18 02:55 | Magnetic Resonance Report ---
Exam(s): MRI HEAD Without Contrast EXAM: MR Head Without Intravenous Contrast CLINICAL HISTORY: Reason for exam: tia. TECHNIQUE: Magnetic resonance images of the head/brain without intravenous contrast in multiple planes. COMPARISON: Prior head CT from April 17, 2024. FINDINGS: Brain: Mild to moderate nonspecific white matter changes. No mass. No hemorrhage. No acute infarct. The flow voids of the base of the brain are intact. Chiari I malformation. Ventricles: Mild ventriculomegaly. Bones/joints: Unremarkable. No acute fracture. Sinuses: Unremarkable as visualized. No acute sinusitis. Mastoid air cells: Unremarkable as visualized. No mastoid effusion. Orbits: Bilateral lens replacements. IMPRESSION: No evidence of acute intracranial pathology. Chiari I malformation. Electronically signed by: Inessa Peterson MD 04/18/24 02:36 AM
[2024-04-18 05:10] LABS: Basophils # (auto) 0.02 K/uL (0.00-0.20); Basophils % (auto) 0.2 %; Eosinophils # (auto) 0.15 K/uL (0.00-0.50); Eosinophils % (auto) 1.8 %; Hematocrit (blood only) 34.7 % (37.0-47.0); Hemoglobin 11.4 g/dl (12.0-16.0); Immature Granulocytes # (auto) 0.03 K/uL (0.01-0.20); Immature Granulocytes % (auto) 0.4 %; Lymphocytes # (auto) 1.52 K/uL (1.20-3.40); Lymphocytes % (auto) 17.8 %; Mean Corpuscular Hemoglobin 29.7 pg (25.0-34.0); Mean Corpuscular Hgb Conc 32.9 g/dL (32.0-36.0); Mean Corpuscular Volume 90.4 fL (80.0-100.0); Mean Platelet Volume 10.2 fL (9.4-12.4); Monocytes # (auto) 0.83 K/uL (0.11-0.59); Monocytes % (auto) 9.7 %; Neutrophils # (auto) 5.98 K/uL (1.40-6.50); Neutrophils % (auto) 70.1 %; Platelet Count 146 K/uL (130-400); RDW Coefficient of Variation 15.3 % (11.5-14.5); RDW Standard Deviation 50.4 fL (36.4-46.3); Red Blood Count 3.84 M/uL (4.20-5.40); White Blood Count 8.53 K/ul (4.8-10.8)
[2024-04-18 05:20] LABS: BUN Creatinine Ratio 24.1 (10-20); Calcium 8.5 mg/dl (8.6-10.3); Chol HDL Ratio 2.3 (0-5); Creatinine Clr Calc Pharmacy 58.5 ml/min; Potassium 3.9 mmol/L (3.5-5.1)
[2024-04-18 07:50] LABS: Estimated Average Glucose 126 mg/dl
--- NOTE | 2024-04-18 08:04 | XRay Report ---
SINGLE VIEW CHEST CLINICAL HISTORY: Strokelike symptoms. FINDINGS: 2 AP, portable, upright chest radiographs are compared to study dated 12/12/2023 and correla dickson with chest CT dated 11/11/2023. The heart is enlarged noting atherosclerotic calcification of the thoracic aorta. The pulmonary vasculature is noncongested. Emphysema with superimposed changes of chr onic interstitial lung disease is similar to previous. Foci of parenchymal scarring are seen througho ut both lungs, greatest at the lung bases. Hilar enlargement suggests lymphadenopathy. Question devel oping airspace consolidation of both lung bases. No large pleural effusion or pneumothorax is seen. T he skeletal structures are osteopenic. The bony thorax is grossly intact. IMPRESSION: 1. Cardiomegaly without radiographic evidence of congestive failure. 2. Emphysema with superimposed changes of chronic lung disease is similar to previous. 3. Question superimposed/developing airspace opacities at both lung bases. Correlate clinically for e vidence of a mild infectious/inflammatory pneumonitis. Radiographic follow-up to resolution is recomm ended. ACT 112: Negative or not required by law. Electronically signed by: Kaden Todd M.D. 04/18/2024 8:02 AM
[2024-04-18] MEDS: ENOXAPARIN INJ 30 MG/0.3 ML SYR SQ SCH (09:19)
[2024-04-18] MEDS: CLOPIDOGREL BISULFATE 75 MG TAB PO SCH (09:20)
[2024-04-18] MEDS: ASPIRIN 81 MG ECTAB PO SCH (09:20)
[2024-04-18] MEDS: DOXYCYCLINE HYCLATE 100 MG CAP PO SCH (10:41)
--- NOTE | 2024-04-18 12:06 | Neurology Consultation ---
Date of Consultation April 18, 2024 Assessment & Plan (1) Stroke-like symptoms: Recommend continued stroke work up to include the following: Echocardiogram as part of complete stroke workup Continue frequent neurological assessments Obtain stat CT brain without contrast for any acute neurological decline Continue to monitor/control blood pressure & blood glucose Continue to monitor telemetry closely Recommend ZioPatch at DC if no evidence of arrhythmia during inpatient monitoring Continue to monitor renal and hepatic function, keep euvolemic Metabolic workup should include hgbA1c, fasting lipids, homocysteine, TSH, D Dimer, RPR, urinalysis Recommend DAPT for at least 3 weeks Recommend high dose statin therapy indefinitely if tolerated Ok from neurology perspective for VTE prophylaxis PT/OT/SLT to eval and treat Recommend eval for OBINNA and consider outpatient polysomnography (2) Carotid stenosis, left: Continue DAPT Continue to monitor Recommend vascular surgery ambulatory referral Telehealth Consultation Telehealth Information Telehealth Information: I performed this visit using a real-time telehealth connection between my location and the patients location ([facility]). After connecting through interactive tele-video, patient was identified by name and date of and/or wristband check.Patient (or authorized healthcare delivery representative) was informed that this was a telemedicine visit and it was being conducted confidentially over secure lines. My office door was closed and no one else was present in the room with me.Patient (or authorized healthcare delivery representative) provided consent to proceed with the visit, expressed an understanding of privacy and security of the telemedicine visit, and gave permission to have a hospital delivery representative in the room in order to assist with the visit and to conduct portions of the visit, as needed. I informed the patient (or authorized healthcare delivery representative) that I reviewed their record and presented the opportunity for them to ask any questions regarding the visit today. The patient agreed to participate. History of Present Illness Reason for Consultation: Stroke Like symptoms Attending Physician: Abe Prasad DO History of Present Illness 83 yo female presented with features of aphasia. Was reported resolved upon arrival to ER. She has undergone stroke imaging including CT brain without contrast revealing no overt evidence of hemorrhage. CT angiographic studies of head and neck reveal no overt evidence of large vessel occlusion or significant/flow limiting stenosis. There is notable Left ICA stenosis. I have performed televideo consultation. Family at bedside all questions answered.She is alert & oriented; able to answer all questions appropriately, name objects on televideo monitor. Has difficulty with simple math calculations and repetition. Neurological exam is otherwise non lateralizing/nonfocal in terms of motor strength and coordination. She reports taking ASA and statin regularly. She is agreeable to the addition of clopidogrel. Allergies Allergy/AdvReac Type Severity Reaction Status Date / Time sulfamethoxazole Allergy Severe Nausea Verified 04/17/24 21:44 [From Bactrim] trimethoprim [From Bactrim] Allergy Severe Nausea Verified 04/17/24 21:44 Penicillins Allergy Intermediate Rash Verified 04/17/24 21:44 nitrofurantoin AdvReac Mild Nausea Verified 04/17/24 21:44 [From Macrobid] Home Medications Medication Instructions Recorded Confirmed Type albuterol sulfate 90 mcg/actuation 2 puff inhalation QID PRN 06/27/18 04/17/24 History aerosol inhaler (ProAir HFA) Shortness Of Breath vitamins A,C,V-loox-oycrqc 2,148 1 tab PO BID 06/27/18 04/17/24 History mcg-113 mg-45 mg-17.4 mg tablet (PreserVision AREDS) cholecalciferol (vitamin D3) 25 25 mcg PO QAM 04/01/21 04/17/24 History mcg (1,000 unit) capsule (Vitamin D3) faricimab-svoa 6 mg/0.05 mL 6 mg intravitreal UD 10/03/23 04/17/24 History intravitreal solution (Vabysmo) aspirin 81 mg tablet,delayed 81 mg PO HS #30 tabs 11/13/23 04/17/24 Rx release metoprolol succinate 25 mg 25 mg PO BID #60 tabs 11/13/23 04/17/24 Rx tablet,extended release 24 hr d-mannose 500 mg capsule 500 mg PO BID 12/12/23 04/17/24 History rosuvastatin 40 mg tablet 40 mg PO QAM 12/12/23 04/17/24 History ondansetron HCl 4 mg tablet 4 mg PO Q6H PRN NAUSEA/VOMITING 12/14/23 04/17/24 Rx #10 tabs Patient History Surgical History No pertinent past surgical history Family History Mother Myocardial infarction Son Stroke Social History Smoking Status: Former smoker Tobacco Type: Cigarettes Second Hand Exposure: No; Do You Dip or Chew Tobacco: No; Hx Alcohol Use: No Hx Substance Use: No Preferred Language: Czech Communication Ability: Effective Director Of Undergraduate Admissions Required: No Beliefs That Will Affect Care: None marital status: Current Living Situation: Alone and Personal Care Facility Current Living Situation Comment: [facility] current occupational status: retired Other Information That Helps Us Care for You: No Feels Safe at Home: Yes Safety Concerns: Feels Safe At This Time Assistive Devices: None Physical Exam Neurological Examination: Mental Status: Awake and alert. Oriented to person, place, and time. Fluency naming and comprehension appear grossly intact. Has difficulty with math calculations and repetition Affect remains appropriate. CN testing: I: Denies changes in ability to smell II:Reports no changes in visual acuity III/IV/: No evidence of gaze preference, hippus, nystagmus or roving eye movements V: Facial sensation reportedly grossly intact to light touch bilaterally VII: Facial movements appear without evidence of asymmetry VIII: Hearing appears grossly intact to loud voice bilaterally IX/X: Palate appears to elevate symmetrically XI: Shoulder shrug appears symmetric/ grossly intact bilaterally XII: Tongue protrudes midline without evidence of biting Motor exam: Strength appears grossly intact/symmetric in all extremities Sensory: Sensation is reportedly grossly intact throughout Coordination: Finger to nose and heel to altamirano were intact. No apparent evidence of dysmetria or dysdiadochokinesia Reflexes: Deferred Gait: Deferred Results & Data Vital Signs (Past 12 Hours) Vital Signs Temp Pulse Pulse Resp BP BP Pulse Ox 04/18/24 09:03 82 04/18/24 08:54 36.7 C 76 18 176/84 H 94 04/18/24 08:07 36.6 C 69 19 133/76 96 04/18/24 08:00 133/76 04/18/24 08:00 68 20 94 04/18/24 08:00 36.6 C 04/18/24 07:06 77 16 95 04/18/24 07:00 141/72 H 04/18/24 04:00 68 22 129/61 93 04/18/24 03:00 68 20 133/63 93 04/18/24 02:15 66 19 162/61 H 96 04/18/24 01:00 80 18 149/82 H 96 O2 Del Method 04/18/24 09:03 04/18/24 08:54 Room Air 04/18/24 08:07 Room Air 04/18/24 08:00 04/18/24 08:00 04/18/24 08:00 04/18/24 07:06 04/18/24 07:00 04/18/24 04:00 04/18/24 03:00 04/18/24 02:15 04/18/24 01:00 Laboratory Results Abnormal lab results 04/17/24 04/17/24 04/17/24 Range/Units 19:53 19:59 20:20 RBC (4.20-5.40) M/uL Hgb (12.0-16.0) g/dl Hct (37.0-47.0) % RDW Std Deviation 51.5 H (36.4-46.3) fL RDW Coeff of Sherrill 15.3 H (11.5-14.5) % [place] # (Auto) (0.11-0.59) K/uL Chloride (98-107) mmol/L POC Anion Gap 15.0 L (16-25) mmol/L POC BUN 19 H (7-18) mg/dl Creatinine (0.6-1.2) mg/dl BUN/Creatinine Ratio 26.4 H (10-20) Hemoglobin A1c (4.5-5.6) % Calcium (8.6-10.3) mg/dl Total Protein 8.4 H (6.0-8.3) gm/dl Ur Specific [place] 1.033 H (1.000-1.030) 04/18/24 Range/Units 04:25 RBC 3.84 L (4.20-5.40) M/uL Hgb 11.4 L (12.0-16.0) g/dl Hct 34.7 L (37.0-47.0) % RDW Std Deviation 50.4 H (36.4-46.3) fL RDW Coeff of Sherrill 15.3 H (11.5-14.5) % [place] # (Auto) 0.83 H (0.11-0.59) K/uL Chloride 108 H (98-107) mmol/L POC Anion Gap (16-25) mmol/L POC BUN (7-18) mg/dl Creatinine 0.54 L (0.6-1.2) mg/dl BUN/Creatinine Ratio 24.1 H (10-20) Hemoglobin A1c 6.0 H (4.5-5.6) % Calcium 8.5 L (8.6-10.3) mg/dl Total Protein (6.0-8.3) gm/dl Ur Specific [place] (1.000-1.030) Diagnostic Findings Chest X-Ray 04/17/24 19:50 SINGLE VIEW CHEST CLINICAL HISTORY: Strokelike symptoms. FINDINGS: 2 AP, portable, upright chest radiographs are compared to study dated 12/12/2023 and correlated with chest CT dated 11/11/2023. The heart is enlarged noting atherosclerotic calcification of the thoracic aorta. The pulmonary vasculature is noncongested. Emphysema with superimposed changes of chronic interstitial lung disease is similar to previous. Foci of parenchymal scarring are seen throughout both lungs, greatest at the lung bases. Hilar enlargement suggests lymphadenopathy. Question developing airspace consolidation of both lung bases. No large pleural effusion or pneumothorax is seen. The skeletal structures are osteopenic. The bony thorax is grossly intact. IMPRESSION: 1. Cardiomegaly without radiographic evidence of congestive failure. 2. Emphysema with superimposed changes of chronic lung disease is similar to previous. 3. Question superimposed/developing airspace opacities at both lung bases. Correlate clinically for evidence of a mild infectious/inflammatory pneumonitis. Radiographic follow-up to resolution is recommended. ACT 112: Negative or not required by law. Electronically signed by: Kaden Todd M.D. 04/18/2024 8:[address] 04/17/24 19:50 CR Exam(s): CT HEAD Without Contrast EXAM: CT Head Without Intravenous Contrast CLINICAL HISTORY: Reason for exam: Neuro deficit, acute, stroke suspected. TECHNIQUE: Axial computed tomography images of the head/brain without intravenous contrast. CTDI is 45.33 mGy and DLP is 1060.1 mGy-cm. Automated exposure control was utilized for the study. A dose lowering technique was utilized adhering to the principles of ALARA. COMPARISON: Head CT 04/17/24. FINDINGS: Brain: No mass effect or acute infarct. No acute hemorrhage. Mild atrophy and chronic white matter disease, stable. Ventricles: No hydrocephalus or midline shift. Bones/joints: No skull fracture. Soft tissues: No scalp hematoma. Visualized Sinuses: Clear. Mastoid air cells: No mastoid effusion. IMPRESSION: 1. Stable age-related findings. 2. No acute infarct, bleed, or acute intracranial abnormality. Communications: Call Doctor Stroke Electronically signed by: Jana Hand M.D. 04/17/24 20:18 PM Head CTA 04/17/24 19:50 CR Exam(s): CTA HEAD With Contrast IV Amt: 119ml optiray 320 EXAM: CT Angiography Head With Intravenous Contrast CLINICAL HISTORY: Reason for exam: stroke like symptoms. TECHNIQUE: Axial computed tomographic angiography images of the head with intravenous contrast. CTDI is 45.33 mGy and DLP is 1060.1 mGy-cm. Automated exposure control was utilized for the study. A dose lowering technique was utilized adhering to the principles of ALARA. MIP reconstructed images were created and reviewed. Mild motion and venous contamination limits detail. CONTRAST: Patient received 119ml optiray 320 of IV contrast COMPARISON: Head CT done earlier. FINDINGS: Right internal carotid artery: Patent. Right anterior cerebral artery: Patent. Right middle cerebral artery: Patent. Right posterior cerebral artery: Patent. Right vertebral artery: Patent. Left internal carotid artery: Patent. Left anterior cerebral artery: Patent. Left middle cerebral artery: Patent. Left posterior cerebral artery: Patent. Left vertebral artery: Patent. Basilar artery: Patent. Other: Mild atherosclerosis bilateral cavernous ICA, without significant stenosis. Patent dural venous sinuses. IMPRESSION: 1. No aneurysm or large vessel occlusion. Communications: Call Doctor Stroke Electronically signed by: Jana Hand M.D. 04/17/24 20:25 PM Neck CTA 04/17/24 19:50 CR Exam(s): CTA NECK With Contrast IV Amt: 119ml optiray 320 EXAM: CT Angiography Neck With Intravenous Contrast CLINICAL HISTORY: Reason for exam: stroke like symptoms. Word finding TECHNIQUE: Routine carotid CT angiography protocol was performed with intravenous contrast. NASCET criteria using the distal ICAs for comparison were used for evaluation of stenoses. CTDI is 45.33 mGy and DLP is 1060.1 mGy-cm. Automated exposure control was utilized for the study. A dose lowering technique was utilized adhering to the principles of ALARA. MIP reconstructed images were created and reviewed. CONTRAST: Patient received 119ml optiray 320 of IV contrast COMPARISON: None. FINDINGS: Right common carotid artery: Patent. Right internal carotid artery: Patent. Atherosclerosis with less than 50% stenosis. Right vertebral artery: Patent. Left common carotid artery: Patent. Left internal carotid artery: Patent. Moderate atherosclerosis of the bifurcation, results in moderate, 50-60% stenosis. Left vertebral artery: Patent. Codominant. Other: IMPRESSION: 1. Moderate, 50-60% LEFT ICA stenosis. No other dissection/occlusion/significant stenosis. CAROTID STENOSIS REFERENCE USING NASCET CRITERIA: % ICA stenosis = (1 - narrowest ICA diameter/diameter of distal cervical ICA) x 100. Mild - <50% stenosis. Moderate - 50-69% stenosis. Severe - 70-94% stenosis. Near occlusion - 95-99% stenosis. Occluded - 100% stenosis. Communications: Call Doctor Stroke Electronically signed by: Jana Hand M.D. 04/17/24 20:27 PM Brain MRI 04/18/24 00:01 Exam(s): MRI HEAD Without Contrast EXAM: MR Head Without Intravenous Contrast CLINICAL HISTORY: Reason for exam: tia. TECHNIQUE: Magnetic resonance images of the head/brain without intravenous contrast in multiple planes. COMPARISON: Prior head CT from April 17, 2024. FINDINGS: Brain: Mild to moderate nonspecific white matter changes. No mass. No hemorrhage. No acute infarct. The flow voids of the base of the brain are intact. Chiari I malformation. Ventricles: Mild ventriculomegaly. Bones/joints: Unremarkable. No acute fracture. Sinuses: Unremarkable as visualized. No acute sinusitis. Mastoid air cells: Unremarkable as visualized. No mastoid effusion. Orbits: Bilateral lens replacements. IMPRESSION: No evidence of acute intracranial pathology. Chiari I malformation. Electronically signed by: Inessa Peterson MD 04/18/24 02:36 AM Medications Administered Home Medications Medication Instructions Recorded Confirmed Last Taken albuterol sulfate 90 mcg/actuation 2 puff inhalation QID PRN 06/27/18 04/17/24 03/31/21 aerosol inhaler (ProAir HFA) Shortness Of Breath vitamins A,C,N-yxtf-utatrr 2,148 1 tab PO BID 06/27/18 04/17/24 04/17/24 09:00 mcg-113 mg-45 mg-17.4 mg tablet (PreserVision AREDS) cholecalciferol (vitamin D3) 25 25 mcg PO QAM 04/01/21 04/17/24 04/17/24 09:00 mcg (1,000 unit) capsule (Vitamin D3) faricimab-svoa 6 mg/0.05 mL 6 mg intravitreal UD 10/03/23 04/17/24 09/23/23 intravitreal solution (Vabysmo) aspirin 81 mg tablet,delayed 81 mg PO HS #30 tabs 11/13/23 04/17/24 12/11/23 release metoprolol succinate 25 mg 25 mg PO BID #60 tabs 11/13/23 04/17/24 04/17/24 09:00 tablet,extended release 24 hr d-mannose 500 mg capsule 500 mg PO BID 12/12/23 04/17/24 12/11/23 rosuvastatin 40 mg tablet 40 mg PO QAM 12/12/23 04/17/24 04/17/24 09:00 ondansetron HCl 4 mg tablet 4 mg PO Q6H PRN NAUSEA/VOMITING 12/14/23 04/17/24 Unknown #10 tabs Active Medications Generic Name Dose Route Start Last Admin Trade Name Freq PRN Reason Stop Dose Admin Aspirin 81 mg 04/18/24 09:00 04/18/24 09:20 Aspirin 81 Mg Ectab PO 05/18/24 08:59 81 mg QAM CLAUDETTE Administration Clopidogrel Bisulfate 75 mg 04/18/24 09:00 04/18/24 09:20 Clopidogrel Bisulfate 75 Mg Tab PO 05/18/24 08:59 75 mg QAM CLAUDETTE Administration Doxycycline Hyclate 100 mg 04/18/24 09:30 04/18/24 10:41 Doxycycline Hyclate 100 Mg Cap PO 04/25/24 09:29 100 mg BID CLAUDETTE Administration Enoxaparin Sodium 30 mg 04/18/24 09:00 04/18/24 09:19 Enoxaparin Inj 30 Mg/0.3 Ml Syr SQ 05/18/24 08:59 30 mg QAM CLAUDETTE Administration
[2024-04-18 12:45] VITALS: BP 134/76; RESP 16; TEMP 97.5; O2SAT 97
[2024-04-18] MEDS ORDERED: STROKE PATIENT DISCHARGE STA (12:47)
--- NOTE | 2024-04-18 12:54 | Pharmacy Report ---
- Date of Service April 18, 2024 - Pharmacy CVA/TIA Medication Review Medications to Prevent Stroke handout has been added to the patients discharge packet. Antiplatelet(s) * Aspirin 81 mg PO once daily * Plavix 75 mg PO once daily Cholesterol * High intensity statin: rosuvastatin 40 mg daily DVT Prophylaxis * Enoxaparin SQ Therapeutic Anticoagulation * No history of Afib/Aflutter noted Type 2 Diabetes * Patient does not have T2DM
--- NOTE | 2024-04-18 12:55 | Discharge Summary ---
Discharge Summary Date of Service April 18, 2024 Principal Dx & Hospital Course #1 = Principal Diagnosis (1) Brain TIA: (2) Hypertension: (3) Carotid stenosis, left: Moderate 50 to 69% (4) Hyperlipidemia: Plan Patient presented to the emergency room with Complaints of difficulty speaking and poor coordination. In the emergency room had extensive workup for stroke. Her symptoms rapidly resolved. She did not meet criteria for TNK. She was started on dual antiplatelet therapy and monitored in the hospital. There is no significant arrhythmias on monitoring. MRI of the brain was negative for acute ischemic event. CTA of the head and neck did show moderate left carotid artery stenosis. Echocardiogram showed normal ejection fraction, no ASD. In the time of discharge her speech and coordination was normal. Chest x-ray question some haziness. She had absolutely no respiratory symptoms. She has known's fibrosis based on previous CT. Did not need any further interventions. In addition to dual antiplatelet therapy will add lisinopril for better blood pressure control. She can be discharged home with outpatient follow-up with her PCP. Son is at bedside at time of discharge updated the plan of care Notes For Next Care Provider Consider outpatient ZIO patch monitoring for occult arrhythmia Consider outpatient vascular surgery for monitoring of moderate left carotid stenosis Continue dual antiplatelet therapy indefinitely Hemoglobin A1c 6.0%, consistent with prediabetes. Can discuss as initiating possible outpatient treatment versus continued monitoring Medication Changes From Visit Plavix added to medical regimen Lisinopril added to medical regimen Admission HPI Per Admitting Provider History obtained from patient, family, and records. Medical history significant for valvular heart disease, moderate MR, hypertension, hyperlipidemia, migraine, recurrent UTIs, past tobacco abuse. Last confinement November 2023 for encephalopathy attributed to UTI. 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 Compliant with home aspirin. Posterior headache Denies chest pain, SOB. Similar episode to October 2023 confinement. EMS called to patient's home. Stroke alert called upon arrival at the ER. Symptoms currently improving. Patient given Plavix at the ER as per [facility] telestroke recommendations. 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 Lungs: Decreased breath sounds, prolonged expiratory phase, no wheezing CV: S1-S2, regular Abdomen: Soft, nontender, nondistended Extremities: No significant edema Neuro: No focal deficits, speech clear, coordination intact, NIH stroke scale=0 Psych: Cooperative, normal mood Updated Medication List Medication Instructions Recorded Confirmed Type albuterol sulfate 90 mcg/actuation 2 puff inhalation QID PRN 06/27/18 04/17/24 History aerosol inhaler (ProAir HFA) Shortness Of Breath vitamins A,C,G-gouh-wudvyz 2,148 1 tab PO BID 06/27/18 04/17/24 History mcg-113 mg-45 mg-17.4 mg tablet (PreserVision AREDS) cholecalciferol (vitamin D3) 25 25 mcg PO QAM 04/01/21 04/17/24 History mcg (1,000 unit) capsule (Vitamin D3) faricimab-svoa 6 mg/0.05 mL 6 mg intravitreal UD 10/03/23 04/17/24 History intravitreal solution (Vabysmo) aspirin 81 mg tablet,delayed 81 mg PO HS #30 tabs 11/13/23 04/17/24 Rx release metoprolol succinate 25 mg 25 mg PO BID #60 tabs 11/13/23 04/17/24 Rx tablet,extended release 24 hr d-mannose 500 mg capsule 500 mg PO BID 12/12/23 04/17/24 History rosuvastatin 40 mg tablet 40 mg PO QAM 12/12/23 04/17/24 History ondansetron HCl 4 mg tablet 4 mg PO Q6H PRN NAUSEA/VOMITING 12/14/23 04/17/24 Rx #10 tabs clopidogrel 75 mg tablet 75 mg PO QAM 30 days #30 tabs 04/18/24 Rx lisinopril 5 mg tablet 5 mg PO DAILY #30 tabs 04/18/24 Rx Hospital Stay Data Consultations 04/17/24 22:05 ED Decision to Admit Stat 04/18/24 03:43 Consult Neurology Routine Diagnostic Imagining Performed 04/17/24 19:50 CT head/brain wo con Stat CTA head w con [CT angio head w con] Stat CTA neck with con [CT angio neck with con] Stat 04/18/24 00:01 MR brain wo con [facility]gent [facility] MRI negative for ischemia Echocardiogram shows normal ejection fraction, no ASD, no significant pulmonary hypetension, I refer to the full report for details hemoglobin 11.4 Electrolytes all stable Hemoglobin A1c 6.0% urinalysis unremarkable Pending Results Patient Have Any Pending Studies at Discharge: No Discharge Instructions Given to Patient (Per Discharging Provider) Continue to monitor blood pressure and titrate medications with your PCP Discussed with your PCP possible vascular surgery evaluation for your moderate carotid stenosis Total Time Total Time Spent Total Time Spent (In Minutes): 36
[2024-04-18 14:31] VITALS: PULSE 77
--- OUTSIDE RECORDS SUMMARY | 2024-04-18 20:34 | External Medical Summary | Summary of Care ---
Author Name Unknown Organization [facility] Address [address] [place] [address] Phone [phone] Care Team Providers Care Medical Equipment Repairer Name Role Phone Sussy Zhu PERI Primary Care Provider [phone] Reason for Visit * Reason Onset Date Comments Appointment 04/14/2024 Encounter Details Date Type Department Care Team (Late st Contact Info) Description 04/14/2024 Telephone Gynecology/Obstetrics [facility] [address] [place], [place] [id number] Services, Scheduling [address] [place] [address] Appointment Allergies Active Allergy Reactions Criticality Noted Date Comments Sulfamethoxazole-Trimethopri m 01/03/2020 nausea Penicillins 03/23/2000 rash Trimethoprim High 04/01/2021 Other reaction(s): Nausea documented as of this encounter (statuses as of 04/18/2024) Medications Medication Sig Dispensed Refills Start Date [...] as of this encounter (statuses as of 04/18/2024) Active Problems Problem Noted Date Diagnosed Date Bronchospasm, exercise-induced 11/17/2023 Spinal enthesopathy, cervical region 07/14/2023 Bilateral nonexudative age-related macular degen eration 05/19/2023 Degenerative disc disease, cervical 09/09/2022 Hyperlipidemia 09/09/2022 History of 2019 novel coronavirus disease (COVID -19) 06/10/2022 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 Increased risk for Familial hypercholesterolemia (FH). Please [...] as of this encounter (statuses as of 04/18/2024) Resolved Problems Problem Noted Date Diagnosed Date [...] as of this encounter (statuses as of 04/18/2024) Immunizations Name Administration Dates Next Due COVID-19 [...] Vac., MDV , IM, 0.5 mL (Fluzone) 05/21/2014,03/11/2013,04/22/2012,04/11,03/28/2010,05/22/2009,05/02/2008 ,04/04/2007,05/05/2006 Seasonal Influenza, PF, 6 M & above, [...] encounter Miscellaneous Notes * Telephone Encounter - Olivia Mcintyre OSA - 04/14/2024 10:30 AM EDT Spoke to patient. Her appointment in May was cancelled by the provider. This is for a pessary check and I have nothing else to offer on my end until March 2025. Please contact patient at [phone] to assist. Thank you, Olivia Mcintyre Patient Care Coordinator III Women's [facility] Scheduling documented in this encounter Plan of Treatment Upcoming Encounters Date Type Department Care Team (Late st Contact Info) Description 04/26/2024 1:20 PM EDT Office Visit Podiatry [facility] [address] [place] [address] Rosalind Woodward DPM [address] [place] [address] [place] [address] 05/23/2024 2:40 PM EST Office Visit Family Practice [facility] [address] [facility] [address] [place] [address] Sussy Zhu PA-C [address] [facility] [address] [place] [address] 05/31/2024 3:00 PM EST Office Visit Ophthalmology, [facility] [address] [place] [address] Mina Christiansen DO [address] [place] [address] 06/29/2024 12:00 PM EST Office Visit Gynecology/Obstetrics [facility] [address] [place] [address] Ny Mccracken CRNP [address] [place] [address] Health Maintenance Due Date Last Done Comments [...] D LEVEL ONCE IN A LIFETIME-USE SMARTSET# 23255 Completed 03/15/2006 Pneumococcal Vaccine: 65+ Years Completed [...] this encounter Medical Devices Implanted Type Area Netsuite Developer Device Identifier Shelf Expiration Date Model / Serial / Lot Lens 23.5 M160l - [id number] - [id number] Implanted:Qty: 1 on 10/03/2015 by Arnol Auguste MD at OR [facility] Left: Eye [employer] : SURGICAL 11/25/2016 [id number]-02.5 / [id number] / [id number] Lens Intraoc 23.0 - [id number] - [id number] Implanted:Qty: 1 on 06/04/2016 by Flakito Sorto MD at OR [facility] Right: Eye [employer] 11/25/2020 [id number] / [id number] / documented as of this encounter Advance [...] Agen t (per Health Care Power of Transplant Surgeon document) Care Teams Medical Equipment Repairer Relationship Specialty Start Date End Date Marko September Pito, ARIESC [address] [place], [place] [address] PCP - General Physician Cheese Cook 01/10/24 documented as of this encounter
--- NOTE | 2024-04-20 05:59 | Electrocardiogram Report ---
Test Reason : Blood Pressure : */* mmHG Vent. Rate : 97 BPM Atrial Rate : 97 BPM P-R Int : 178 ms QRS Dur : 70 ms QT Int : 352 ms P-R-T Axes : 59 28 46 degrees QTcB Int : 447 ms Sinus rhythm with Premature atrial complexes Cannot rule out Anterior infarct , age undetermined Abnormal ECG When compared with ECG of 12-Dec-2023 09:59, Premature atrial complexes are now Present Confirmed by Zac Melendez ([id number]) on 04/20/2024 5:59:26 AM Referred By: Confirmed By: Zac Melendez
== END 2024-04-18 14:30 | disposition home or self-care (01) ==
LOC: EDINP 19:34 → ED 19:34 → SUATTDRO 22:55 → 2N 23:35

== ENCOUNTER 2024-04-18 18:30 | Inpatient (IN) ==
[2024-04-18] MEDS: lisinopril 5 MG TAB PO ONE (19:54)
[2024-04-18 20:13] LABS: Appearance Urine Clear (Clear); Bacteria Urine Automated None Seen (None Seen); Bilirubin Urine Negative (Negative); Blood Urine Negative (Negative); Cast Urine Automated 0-2 /lpf (0-2); Color Urine Yellow; Epithelial Cell Urine Auto 0-2 /hpf (0-2); Glucose Urine UA Negative (Negative); Ketones Urine Negative (Negative); Leukocyte Esterase Urine 2+ (Negative); Nitrite Urine Negative (Negative); Protein Urine Negative (Negative); RBC Urine Automated 0-2 /hpf (0-2); Specific Gravity Urine 1.006 (1.000-1.030); Urobilinogen Urine Negative (Negative); WBC Urine Automated 0-5 /hpf (0-5)
[2024-04-18 20:26] LABS: BUN Creatinine Ratio 18.1 (10-20); Calcium 9.6 mg/dl (8.6-10.3); Creatinine Clr Calc Pharmacy 38.3 ml/min; Magnesium 1.9 mg/dl (1.7-2.4)
[2024-04-18] MEDS: CEFEPIME 2000MG 2,000 MG/20 ML SYR IV STA (20:26)
--- NOTE | 2024-04-18 20:32 | Emergency Department Note ---
Impression & Plan Confusion, Hypertension ED Provider Note ED Provider Note NAME: JULIA HUERTA AGE:83 SEX: Female : 1940 ARRIVES VIA: Private vehicle INFORMANT: Patient, son ED PROVIDER(s): Kelley Godinez DO CHIEF COMPLAINT: Confusion, high blood pressure HPI: This is an 83-year-old female who presents emergency room due to concern for acute confusion, and family also noticed high blood pressure reading. Patient just discharged from the hospital this afternoon at 3 PM. Son at bedside states upon dropping her off at home she seemed well in her usual state of health following evaluation here for confusion last night. He states she was kept overnight underwent blood work and imaging including an MRI. He states there was no evidence of stroke as reported them on MRI. They did notice that her blood pressure was higher during her stay and so a blood pressure medication was added to her regimen. She has not yet started this. He states they also added an additional blood thinner due to concern for increased risk of CVA/TIA. PAST MEDICAL HISTORY:See Below PAST SURGICAL HISTORY:See Below FAMILY HISTORY:See Below SOCIAL HISTORY:See Below HOME MEDICATIONS:See Below ALLERGIES:See Below VITALS:See Below PHYSICAL EXAMINATION: GENERAL: alert, well appearing, well nourished, no distress, non-toxic EYE EXAM: normal conjunctiva, PERRL and EOM's grossly intact OROPHARYNX: no exudate, no erythema, lips, buccal mucosa, and tongue normal and mucous membranes are moist NECK: supple, no nuchal rigidity, no adenopathy, non-tender LUNGS: Clear to auscultation. Normal chest wall mechanics, no w/r/r HEART: no murmurs, S1 normal and S2 normal ABDOMEN: abdomen soft, non-tender, normo-active bowel sounds, no masses, no rebound or guarding. BACK: Back is symmetrical on inspection and there is no deformity, no midline tenderness SKIN: no rashes, petechiae, orbruising UPPER EXTREMITIES: upper extremities are grossly normal. FROM, nml pulses b/l. LOWER EXTREMITIES: No pitting edema. FROM, nml pulses b/l. NEURO EXAM: Normal sensorium, cranial nerves II-XII grossly intact, normal speech, no facial droop,nogross weakness of arms, no gross weakness of legs. Gross sensation intact. No ataxia. Vital Signs: reviewed and remarkable Differential Diagnosis: hypertensive urgency, sundowning, delirium, medication adr, occult infection, dehydration, as well as others were considered MEDICAL DECISION MAKING: THis is an 83 yo female who presents to the ER following discharge earlier today after being admitted for confusion and CVA/TIA work up. Son at bedside states additional blood pressure meds added and patient seemed well at discharge and when he first took her home. He states confusion tonight is similar to last night. She was afebrile on arrival but was noted to be hypertensive. Labs drawn and sent, IV established, EKG and CXR performed and interpreted at bedside, and patient placed on telemetry. She was given a dose of lisinopril which son states was recently added but she hadn't taken a dose today yet. Her blood pressure did began to trend down. Urine collected and sent as son states sx are similar to UTI's of which she has had several previously. Leukocyte esterase now noted which was negative last night. Given hx of UTI's, cultures were reviewed and patient given a dose of antibiotics here. We discussed all results. Given patient lives alone, is confused, and BP still elevated, case discussed with the hospitalist team for additional evaluation and mgmt. Consultation(s): 2116: Discussed with Dr. Mcgill, [facility] hospitalist team, for additional evaluation and management. ER Treatment Provided: See below Diagnostics Interpreted By Me: -ECG: Normal sinus at 87, normal axis, normal intervals, no acute ST/T wave changes, PVC noted -Cardiac Monitoring: An order was placed for continuous cardiac monitoring. The monitor shows a rate of 82 with normal sinus rhythm. -Laboratory studies: As stated above and show below. -Imaging studies: X-ray Chest: A single view study of the chest was reviewed and was negative for cardiomegaly, focal infiltrate, effusion, pulmonary edema, or wide mediastinum. Triage Nursing Note Reviewed Prior/Outside Records Reviewed Past Med/Surg History Problem List (Updated 04/19/24 @ 14:40 by Abe Prasad DO) Transient confusion Hypertension (Acute) Confusion (Acute) Carotid stenosis, left Stroke-like symptoms (Acute) Vaginal pessary in situ Acute metabolic encephalopathy Acute UTI (Acute) Encephalopathy (Acute) Brain TIA (Acute) COVID-19 (Acute) Hyperlipidemia (Chronic) Asthma (Chronic) Degenerative disc disease, cervical (Acute) Weakness (Acute) Surgical History No pertinent past surgical history Family History Mother Myocardial infarction Son Stroke Social History Smoking Status: Former smoker Tobacco Type: Cigarettes Second Hand Exposure: No; Do You Dip or Chew Tobacco: No; Hx Alcohol Use: No Hx Substance Use: No Preferred Language: Tamazight Communication Ability: Effective Franchise Specialist Required: No Beliefs That Will Affect Care: None marital status: Current Living Situation: Alone and Personal Care Facility Current Living Situation Comment: [facility] current occupational status: retired Other Information That Helps Us Care for You: No Feels Safe at Home: Yes Safety Concerns: Feels Safe At This Time Assistive Devices: None Allergies Allergies Allergy/AdvReac Type Severity Reaction Status Date / Time sulfamethoxazole Allergy Severe Nausea Verified 04/17/24 21:44 [From Bactrim] trimethoprim [From Bactrim] Allergy Severe Nausea Verified 04/17/24 21:44 Penicillins Allergy Intermediate Rash Verified 04/17/24 21:44 nitrofurantoin AdvReac Mild Nausea Verified 04/17/24 21:44 [From Macrobid] Home Meds Home Medications Medication Instructions Recorded Confirmed albuterol sulfate 90 mcg/actuation 2 puff inhalation QID PRN 06/27/18 04/18/24 aerosol inhaler (ProAir HFA) Shortness Of Breath vitamins A,C,W-ojnd-sjwrlu 2,148 1 tab PO BID 06/27/18 04/18/24 mcg-113 mg-45 mg-17.4 mg tablet (PreserVision AREDS) cholecalciferol (vitamin D3) 25 25 mcg PO QAM 04/01/21 04/18/24 mcg (1,000 unit) capsule (Vitamin D3) faricimab-svoa 6 mg/0.05 mL 6 mg intravitreal UD 10/03/23 04/18/24 intravitreal solution (Vabysmo) d-mannose 500 mg capsule 500 mg PO BID 12/12/23 04/18/24 rosuvastatin 40 mg tablet 40 mg PO QAM 12/12/23 04/18/24 Previous Rx's Medication Instructions Recorded aspirin 81 mg tablet,delayed 81 mg PO HS #30 tabs 11/13/23 release metoprolol succinate 25 mg 25 mg PO BID #60 tabs 11/13/23 tablet,extended release 24 hr ondansetron HCl 4 mg tablet 4 mg PO Q6H PRN NAUSEA/VOMITING 12/14/23 #10 tabs clopidogrel 75 mg tablet 75 mg PO QAM 30 days #30 tabs 04/18/24 lisinopril 5 mg tablet 5 mg PO DAILY #30 tabs 04/18/24 Results & Data (ED) Vital Signs Vital Signs - 24 hr 04/18/24 18:40 04/18/24 18:41 04/18/24 20:28 Temperature 36.8 C Temperature Source Oral Pulse Rate 90 90 Pulse Rate [Apical] 83 Respiratory Rate 18 18 Respiratory Effort / Characteristics Non-Labored Spontaneous Respiratory Depth Normal Blood Pressure 171/105 H Blood Pressure [Right Arm] 152/95 H Blood Pressure Mean 127 Blood Pressure Mean [Right Arm] 114 Pulse Oximetry 99 98 Oxygen Delivery Method Room Air Room Air Sepsis Recent Fever Within 48 Hours No Sepsis New/Unexplained Change in Mental Status No Sepsis Action Taken by Nursing No Action Required 04/18/24 21:16 04/18/24 21:30 04/18/24 21:30 Temperature Temperature Source Pulse Rate Pulse Rate [Apical] 83 Respiratory Rate 18 Respiratory Effort / Characteristics Non-Labored Respiratory Depth Normal Blood Pressure 155/89 H 155/89 H Blood Pressure [Right Arm] 128/81 Blood Pressure Mean 120 120 Blood Pressure Mean [Right Arm] 96 Pulse Oximetry 98 Oxygen Delivery Method Room Air Sepsis Recent Fever Within 48 Hours Sepsis New/Unexplained Change in Mental Status Sepsis Action Taken by Nursing 04/18/24 21:30 04/18/24 21:33 Temperature Temperature Source Pulse Rate 88 Pulse Rate [Apical] Respiratory Rate 29 H Respiratory Effort / Characteristics Respiratory Depth Blood Pressure 155/89 H Blood Pressure [Right Arm] Blood Pressure Mean 120 Blood Pressure Mean [Right Arm] Pulse Oximetry Oxygen Delivery Method Sepsis Recent Fever Within 48 Hours Sepsis New/Unexplained Change in Mental Status Sepsis Action Taken by Nursing Laboratory Data 04/19/24 05:25 04/19/24 05:25 Lab Results 04/18/24 04/18/24 Range/Units 19:46 19:50 WBC 7.99 (4.8-10.8) K/ul RBC 4.95 (4.20-5.40) M/uL Hgb 14.5 D (12.0-16.0) g/dl Hct 45.5 (37.0-47.0) % MCV 91.9 (80.0-100.0) fL MCH 29.3 (25.0-34.0) pg MCHC 31.9 L (32.0-36.0) g/dL RDW Std Deviation 51.7 H (36.4-46.3) fL RDW Coeff of Sherrill 15.4 H (11.5-14.5) % Plt Count 168 (130-400) K/uL MPV 10.4 (9.4-12.4) fL Sodium 137 (136-145) mmol/L Potassium 4.0 (3.5-5.1) mmol/L Chloride 104 (98-107) mmol/L Carbon Dioxide 25 (21-32) mmol/L Anion Gap 8 (3-11) BUN 13 (6-23) mg/dl Creatinine 0.72 (0.6-1.2) mg/dl Est Cr Clr Drug Dosing 38.3 ml/min eGFR 82.39 BUN/Creatinine Ratio 18.1 (10-20) Glucose 99 (70-99(Fasting)) mg/dl Calcium 9.6 (8.6-10.3) mg/dl Magnesium 1.9 (1.7-2.4) mg/dl Troponin I High Sens 14.8 H D (0-14) pg/ml TSH 1.097 (0.300-4.500) uIu/ml Urine Color Yellow Urine Appearance Clear (Clear) Urine pH 7.0 (4.5-7.5) Ur Specific [place] 1.006 (1.000-1.030) Urine Protein Negative (Negative) Urine Glucose (UA) Negative (Negative) Urine Ketones Negative (Negative) Urine Blood Negative (Negative) Urine Nitrite Negative (Negative) Urine Bilirubin Negative (Negative) Urine Urobilinogen Negative (Negative) Ur Leukocyte Esterase 2+ H (Negative) Urine WBC (Auto) 0-5 (0-5) /hpf Urine RBC (Auto) 0-2 (0-2) /hpf U Hyaline Cast (Auto) 0-2 (0-2) /lpf U Epithel Cells (Auto) 0-2 (0-2) /hpf Urine Bacteria (Auto) None Seen (None Seen) Administered Medications Clopidogrel Bisulfate (Clopidogrel Bisulfate 75 Mg Tab) 75 mg PO QAM [facility] Stop: 05/19/24 08:59 Last Admin: 04/19/24 08:45 Dose: 75 mg Documented By: GRANT Heparin Sodium (Porcine) (Heparin Sod 5,000 Unit/0.5 Ml Vial) 5,000 units SQ Q8 CLAUDETTE Stop: 05/19/24 05:59 Last Admin: 04/19/24 13:38 Dose: 5,000 units Documented By: Admin: 04/19/24 05:46 Dose: 5,000 units Documented By: ARLEEN Lisinopril (Lisinopril 5 Mg Tab) 5 mg PO DAILY CLAUDETTE Stop: 05/19/24 08:59 Last Admin: 04/19/24 08:45 Dose: 5 mg Documented By: GRANT Metoprolol Succinate (Metoprolol Succ 25mg Ext Rel Tab) 25 mg PO BID CLAUDETTE Stop: 05/19/24 08:59 Last Admin: 04/19/24 08:45 Dose: 25 mg Documented By: GRANT Multivitamins/Minerals (Cerovite Adv Formula Tab) 1 tab PO BID CLAUDETTE Stop: 05/19/24 08:59 Last Admin: 04/19/24 08:45 Dose: 1 tab Documented By: GRANT Rosuvastatin Calcium (Rosuvastatin Calcium 20 Mg Tab) 40 mg PO QAM [facility] Stop: 05/19/24 08:59 Last Admin: 04/19/24 08:45 Dose: 40 mg Documented By: GRANT Discontinued Medications Cefepime HCl (Maxipime 2000mg) 2,000 mg in 20 mls @ 5 mls/min IV NOW STA; Protocol Stop: 04/18/24 20:22 Last Admin: 04/18/24 20:26 Dose: 5 mls/min Documented By: GAGAN Ertapenem (Invanz 1000mg) 1,000 mg in 10 mls @ 2 mls/min IV NOW STA Stop: 04/18/24 21:35 Last Admin: 04/18/24 22:07 Dose: 2 mls/min Documented By: GAGAN Sodium Chloride (Nss) 1,000 mls @ 40 mls/hr IV .Q24H ONE Stop: 04/19/24 22:08 Last Infusion: 04/19/24 13:33 Dose: Infused Documented By: Admin: 04/19/24 00:31 Dose: 40 mls/hr Documented By: DESTINY Magnesium Sulfate/Dextrose (Magnesium Sulfate / D5w) 1 gm in 100 mls @ 50 mls/hr IV ONE ONE Stop: 04/19/24 01:40 Last Infusion: 04/19/24 03:19 Dose: Infused Documented By: Admin: 04/19/24 00:31 Dose: 50 mls/hr Documented By: DESTINY Lisinopril (Lisinopril 5 Mg Tab) 5 mg PO NOW ONE Stop: 04/18/24 19:32 Last Admin: 04/18/24 19:54 Dose: 5 mg Documented By: GAGAN Metoprolol Tartrate (Metoprolol Tartrate 1 Mg/Ml Vial) 2.5 mg IV NOW STA Stop: 04/18/24 23:42 Last Admin: 04/18/24 23:46 Dose: Not Given Documented By: DESTINY Imaging Data Radiologist's Impression: Head CT 04/18/24 22:04 CT SCAN OF THE BRAIN WITHOUT IV CONTRAST CLINICAL HISTORY: Transient aphasia. COMPARISON STUDY: CT of the brain dated 04/17/2024. TECHNIQUE: Unenhanced axial CT scan of the brain is performed from the vertex to the skull base. A dose lowering technique was utilized adhering to the principles of ALARA. CT DOSE: 547.75 mGy.cm FINDINGS: Brain parenchyma: There is age-related involutional change noting moderate subcortical and periventricular microangiopathic disease. There is no hemorrhage, mass effect, or evidence of acute territorial ischemia by CT criteria. Berkowitz-white matter differentiation is preserved. No extra-axial fluid collection is seen. Ventricles, sulci, cisterns: Prominent secondary to involutional change. Intracranial vasculature: There is atherosclerotic calcification of the cavernous carotid and vertebral arteries. Calvarium: Unremarkable. Sinuses and mastoids: The visualized paranasal sinuses are clear. The mastoid air cells are well pneumatized. Orbits: The bony orbits are grossly intact. There are bilateral ocular lens implants. IMPRESSION: There is no hemorrhage, mass effect, or evidence of acute territorial ischemia by CT criteria. ACT 112: Negative or not required by law. Electronically signed by: Kaden Todd M.D. 04/19/2024 6:49 AM Discharge Plan Visit Data Chief Complaint: Confusion Stated Complaint: CONFUSION ED Provider: Kelley Godinez Discharge Problem: Confusion, Hypertension Patient Disposition: Admitted As Inpatient Discharge Instructions Interventions: ED Discharge Assessment Last Done: 04/19/24 00:26
[2024-04-18 20:38] LABS: Troponin I High Sensitivity 14.8 pg/ml (0-14)
[2024-04-18 21:00] LABS: Hematocrit (blood only) 45.5 % (37.0-47.0); Hemoglobin 14.5 g/dl (12.0-16.0); Mean Corpuscular Hemoglobin 29.3 pg (25.0-34.0); Mean Corpuscular Hgb Conc 31.9 g/dL (32.0-36.0); Mean Corpuscular Volume 91.9 fL (80.0-100.0); Mean Platelet Volume 10.4 fL (9.4-12.4); Platelet Count 168 K/uL (130-400); RDW Coefficient of Variation 15.4 % (11.5-14.5); RDW Standard Deviation 51.7 fL (36.4-46.3); Red Blood Count 4.95 M/uL (4.20-5.40); White Blood Count 7.99 K/ul (4.8-10.8)
--- NOTE | 2024-04-18 22:05 | History & Physical Report ---
Date of Service April 18, 2024 Assessment & Plan (1) Encephalopathy: Plan: Transient encephalopathy Multifactorial : Uncontrolled hypertension Complicated UTI , history recurrent UTIs (enteric organisms, Enterococcus, ceftriaxone resistant E. coli on review of outpatient CS), no sepsis for now Recent admission for TIA valvular heart disease (moderate MR, mild TR) PVD hyperlipidemia, on statin Rx Recent diagnosis of prediabetes, hemoglobin A1c of 6 past tobacco abuse Admit to medical telemetry Urine CS, Ertapenem on the basis of microbiologic history Titrate home BP meds PT OT eval DVT prophylaxis. Heparin subcu Full code Patient son requesting updates from providers. Mr. Tanner Garcia, contact #[phone]. Text document was generated using [employer] voice recognition software. It may contain grammatical or spelling errors. Kindly contact undersigned for clarification of any documentation item in question. History of Present Illness Chief Complaint: Confusion Primary Care Provider: Sussy Zhu PA-C History obtained from patient, family, and records. Medical history significant for TIA, PVD, valvular heart disease, moderate MR, hypertension, hyperlipidemia, migraine, recurrent UTIs, prediabetes, past tobacco abuse. Recent confinement yesterday for TIA presenting as transient aphasia/apraxia symptoms. Moderate left carotid artery stenosis on CTA. New diagnosis of prediabetes with hemoglobin A1c of 6. Patient discharged on dual antiplatelet Rx and lisinopril for better BP control. Patient woke up not knowing where she was tonight. She could not get the words out while talking to son on the phone. Denies headache, chest pain, SOB, abdominal pain, dysuria symptoms. Blood pressure markedly elevated upon arrival of EMS. SBP 170s upon arrival at the ER. Cefepime and lisinopril administered at the ER. Patient currently back to baseline mentation as per son. 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 Allergies Allergy/AdvReac Type Severity Reaction Status Date / Time sulfamethoxazole Allergy Severe Nausea Verified 04/17/24 21:44 [From Bactrim] trimethoprim [From Bactrim] Allergy Severe Nausea Verified 04/17/24 21:44 Penicillins Allergy Intermediate Rash Verified 04/17/24 21:44 nitrofurantoin AdvReac Mild Nausea Verified 10/21/24 21:44 [From Macrobid] Home Medications Medication Instructions Recorded Confirmed Type albuterol sulfate 90 mcg/actuation 2 puff inhalation QID PRN 06/27/18 04/18/24 History aerosol inhaler (ProAir HFA) Shortness Of Breath vitamins A,C,G-qany-zsclun 2,148 1 tab PO BID 06/27/18 04/18/24 History mcg-113 mg-45 mg-17.4 mg tablet (PreserVision AREDS) cholecalciferol (vitamin D3) 25 25 mcg PO QAM 04/01/21 04/18/24 History mcg (1,000 unit) capsule (Vitamin D3) faricimab-svoa 6 mg/0.05 mL 6 mg intravitreal UD 10/03/23 04/18/24 History intravitreal solution (Vabysmo) aspirin 81 mg tablet,delayed 81 mg PO HS #30 tabs 11/13/23 04/18/24 Rx release metoprolol succinate 25 mg 25 mg PO BID #60 tabs 11/13/23 04/18/24 Rx tablet,extended release 24 hr d-mannose 500 mg capsule 500 mg PO BID 12/12/23 04/18/24 History rosuvastatin 40 mg tablet 40 mg PO QAM 12/12/23 04/18/24 History ondansetron HCl 4 mg tablet 4 mg PO Q6H PRN NAUSEA/VOMITING 12/14/23 04/18/24 Rx #10 tabs clopidogrel 75 mg tablet 75 mg PO QAM 30 days #30 tabs 04/18/24 04/18/24 Rx lisinopril 5 mg tablet 5 mg PO DAILY #30 tabs 04/18/24 04/18/24 Rx Past Med/Surg History Problem List (Updated 04/18/24 @ 20:32 by Kelley Godinez DO) Hypertension (Acute) Confusion (Acute) Carotid stenosis, left Stroke-like symptoms (Acute) Vaginal pessary in situ Acute metabolic encephalopathy Acute UTI (Acute) Encephalopathy (Acute) Brain TIA (Acute) COVID-19 (Acute) Hyperlipidemia (Chronic) Asthma (Chronic) Degenerative disc disease, cervical (Acute) Weakness (Acute) Surgical History No pertinent past surgical history Family History Mother Myocardial infarction Son Stroke Social History Smoking Status: Former smoker Tobacco Type: Cigarettes Second Hand Exposure: No; Do You Dip or Chew Tobacco: No; Hx Alcohol Use: No Hx Substance Use: No Preferred Language: Luxembourgish Communication Ability: Effective Sales Appointment Coordinator Required: No Beliefs That Will Affect Care: None marital status: Current Living Situation: Alone and Personal Care Facility Current Living Situation Comment: [facility] current occupational status: retired Other Information That Helps Us Care for You: No Feels Safe at Home: Yes Safety Concerns: Feels Safe At This Time Assistive Devices: Glasses Review of Systems Review of Systems: As per HPI, all other systems reviewed and negative Physical Exam Physical Exam: GENERAL: Comfortable, pleasant, no respiratory distress SKIN: Normal color, warm HEENT: [place] palpebral conjunctivae, no ptosis, dry buccal mucosa NECK : Supple, no tenderness CHEST : Decreased breath sounds, no tenderness HEART : RRR, systolic murmur ABDOMEN: no distention, nontender EXTREMITIES : No LE swelling/tenderness, no other conspicuous deformities noted NEUROLOGIC : Coherent, no facial asymmetry, gait and stance not assessed Results & Data Results & Data Vital Signs (Past 12 Hours) Vital Signs Temp Pulse Pulse Resp BP BP Pulse Ox 04/18/24 21:16 83 18 128/81 98 04/18/24 20:28 83 18 152/95 H 98 04/18/24 18:41 36.8 C 90 18 171/105 H 99 04/18/24 18:40 90 O2 Del Method 04/18/24 21:16 Room Air 04/18/24 20:28 Room Air 04/18/24 18:41 Room Air 04/18/24 18:40 Laboratory Results Laboratory Results WBC 7.99 K/ul (4.8-10.8) 04/18/24 19:46 RBC 4.95 M/uL (4.20-5.40) 04/18/24 19:46 Hgb 14.5 g/dl (12.0-16.0) D 04/18/24 19:46 Hct 45.5 % (37.0-47.0) 04/18/24 19:46 MCV 91.9 fL (80.0-100.0) 04/18/24 19:46 MCH 29.3 pg (25.0-34.0) 04/18/24 19:46 MCHC 31.9 g/dL (32.0-36.0) L 04/18/24 19:46 RDW Std Deviation 51.7 fL (36.4-46.3) H 04/18/24 19:46 RDW Coeff of Sherrill 15.4 % (11.5-14.5) H 04/18/24 19:46 Plt Count 168 K/uL (130-400) 04/18/24 19:46 MPV 10.4 fL (9.4-12.4) 04/18/24 19:46 Sodium 137 mmol/L (136-145) 04/18/24 19:46 Potassium 4.0 mmol/L (3.5-5.1) 04/18/24 19:46 Chloride 104 mmol/L (98-107) 04/18/24 19:46 Carbon Dioxide 25 mmol/L (21-32) 04/18/24 19:46 Anion Gap 8 (3-11) 04/18/24 19:46 BUN 13 mg/dl (6-23) 04/18/24 19:46 Creatinine 0.72 mg/dl (0.6-1.2) 04/18/24 19:46 Est Cr Clr Drug Dosing 38.3 ml/min 04/18/24 19:46 eGFR 82.39 04/18/24 19:46 BUN/Creatinine Ratio 18.1 (10-20) 04/18/24 19:46 Glucose 99 mg/dl (70-99(Fasting)) 04/18/24 19:46 Calcium 9.6 mg/dl (8.6-10.3) 04/18/24 19:46 Magnesium 1.9 mg/dl (1.7-2.4) 04/18/24 19:46 Troponin I High Sens 14.8 pg/ml (0-14) H D 04/18/24 19:46 Urine Color Yellow 04/18/24 19:50 Urine Appearance Clear (Clear) 04/18/24 19:50 Urine pH 7.0 (4.5-7.5) 04/18/24 19:50 Ur Specific [place] 1.006 (1.000-1.030) 04/18/24 19:50 Urine Protein Negative (Negative) 04/18/24 19:50 Urine Glucose (UA) Negative (Negative) 04/18/24 19:50 Urine Ketones Negative (Negative) 04/18/24 19:50 Urine Blood Negative (Negative) 04/18/24 19:50 Urine Nitrite Negative (Negative) 04/18/24 19:50 Urine Bilirubin Negative (Negative) 04/18/24 19:50 Urine Urobilinogen Negative (Negative) 04/18/24 19:50 Ur Leukocyte Esterase 2+ (Negative) H 04/18/24 19:50 Urine WBC (Auto) 0-5 /hpf (0-5) 04/18/24 19:50 Urine RBC (Auto) 0-2 /hpf (0-2) 04/18/24 19:50 U Hyaline Cast (Auto) 0-2 /lpf (0-2) 04/18/24 19:50 U Epithel Cells (Auto) 0-2 /hpf (0-2) 04/18/24 19:50 Urine Bacteria (Auto) None Seen (None Seen) 04/18/24 19:50 CT head: There is no hemorrhage, mass effect, or evidence of acute territorial ischemia b y CT criteria. Diagnostic Findings EKG as per my interpretation : Rate 85, NSR, normal axis, no ischemia, PVCs
[2024-04-18] MEDS: ERTAPENEM 1000MG 1,000 MG/10 ML SYR IV STA (22:07)
[2024-04-18] MEDS ORDERED: PROMETHAZINE 6.25 MG/50.25 ML BAG IV PRN (22:08)
[2024-04-18 22:23] LABS: Thyroid Stimulating Hormone 1.097 uIu/ml (0.300-4.500)
[2024-04-18] MEDS: METOPROLOL TARTRATE 1 MG/ML VIAL IV STA (23:46)
[2024-04-19] MEDS: MAGNESIUM SULFATE / D5W 1 GM/100 ML BAG IV ONE (00:31)
[2024-04-19] MEDS: SODIUM CHLORIDE 0.9% 1,000 ML IV ONE (00:31)
[2024-04-19] MEDS: HEPARIN SOD 5,000 UNIT/0.5 ML VIAL SQ SCH (05:46)
[2024-04-19 05:50] LABS: Basophils # (auto) 0.04 K/uL (0.00-0.20); Basophils % (auto) 0.6 %; Eosinophils # (auto) 0.21 K/uL (0.00-0.50); Eosinophils % (auto) 3.1 %; Hematocrit (blood only) 38.5 % (37.0-47.0); Hemoglobin 12.3 g/dl (12.0-16.0); Immature Granulocytes # (auto) 0.03 K/uL (0.01-0.20); Immature Granulocytes % (auto) 0.4 %; Lymphocytes % (auto) 20.9 %; Mean Corpuscular Hemoglobin 29.5 pg (25.0-34.0); Mean Corpuscular Hgb Conc 31.9 g/dL (32.0-36.0); Mean Corpuscular Volume 92.3 fL (80.0-100.0); Mean Platelet Volume 10.3 fL (9.4-12.4); Monocytes # (auto) 0.78 K/uL (0.11-0.59); Monocytes % (auto) 11.6 %; Neutrophils # (auto) 4.24 K/uL (1.40-6.50); Neutrophils % (auto) 63.4 %; Platelet Count 145 K/uL (130-400); RDW Coefficient of Variation 15.4 % (11.5-14.5); RDW Standard Deviation 52.4 fL (36.4-46.3); Red Blood Count 4.17 M/uL (4.20-5.40)
[2024-04-19 06:06] LABS: BUN Creatinine Ratio 21.9 (10-20); Calcium 8.6 mg/dl (8.6-10.3); Creatinine Clr Calc Pharmacy 49.9 ml/min
[2024-04-19 06:11] LABS: Troponin I High Sensitivity 12.1 pg/ml (0-14)
--- NOTE | 2024-04-19 06:50 | CT Scan Report ---
CT SCAN OF THE BRAIN WITHOUT IV CONTRAST CLINICAL HISTORY: Transient aphasia. COMPARISON STUDY: CT of the brain dated 04/17/2024. TECHNIQUE: Unenhanced axial CT scan of the brain is performed from the vertex to the skull base. A do se lowering technique was utilized adhering to the principles of ALARA. CT DOSE: 547.75 mGy.cm FINDINGS: Brain parenchyma: There is age-related involutional change noting moderate subcortical and periventri cular microangiopathic disease. There is no hemorrhage, mass effect, or evidence of acute territorial ischemia by CT criteria. Berkowitz-white matter differentiation is preserved. No extra-axial fluid collec tion is seen. Ventricles, sulci, cisterns: Prominent secondary to involutional change. Intracranial vasculature: There is atherosclerotic calcification of the cavernous carotid and vertebr al arteries. Calvarium: Unremarkable. Sinuses and mastoids: The visualized paranasal sinuses are clear. The mastoid air cells are well pneu matized. Orbits: The bony orbits are grossly intact. There are bilateral ocular lens implants. IMPRESSION: There is no hemorrhage, mass effect, or evidence of acute territorial ischemia by CT diana pineda. ACT 112: Negative or not required by law. Electronically signed by: Kaden Todd M.D. 04/19/2024 6:49 AM
[2024-04-19] MEDS: METOPROLOL SUCC 25MG EXT REL TAB PO SCH (08:45)
[2024-04-19] MEDS: lisinopril 5 MG TAB PO SCH (08:45)
[2024-04-19] MEDS: CEROVITE ADV FORMULA TAB PO SCH (08:45)
[2024-04-19] MEDS: CLOPIDOGREL BISULFATE 75 MG TAB PO SCH (08:45)
[2024-04-19] MEDS: ROSUVASTATIN CALCIUM 20 MG TAB PO SCH (08:45)
--- NOTE | 2024-04-19 14:44 | Hospitalist Progress Note ---
Date of Service April 19, 2024 Assessment & Plan (1) Transient confusion: (2) Hypertension: (3) Carotid stenosis, left: (4) Brain TIA: Plan Suspect patient had transient confusion due to the fact that she was extremely exhausted, fell asleep on her couch at an unusual time of day for her after a hospital stay. She had been sleep deprived and when she awoke after a short nap and not a full restorative night sleep, she had some transient confusion as she reoriented herself and attempted to call family members. All objective data does not indicate any acute medical issue Telemetry monitoring unremarkable Blood pressure elevated at the time of presentation, has rapidly improved with just hospitalization. Blood pressure not elevated enough to cause significant symptoms of encephalopathy. Suspect hypertension more component of anxiety about her health. Continue current antihypertensive medications Continue dual antiplatelet therapy Therapy evaluation. Urinalysis completely unremarkable, discontinue antibiotics, low suspicion for UTI. Prolonged explanation how additional antibiotics could cause her more problems and benefits Extremely low suspicion urinary tract infection causes transient confusion. Extensive conversation with the son and patient at bedside, explaining my suspected diagnosis. Out of abundance of caution we will continue to observe her here in the hospital. Anticipate discharge tomorrow if no recurrent issues. 53 minutes with conversation the patient and family at bedside, evaluation of the patient, review of medical record Admission and Anticipated Discharge Date Admission Date: April 18, 2024 Subjective This morning patient is feels fine back to her usual self. Son at the bedside he confirms. Able to obtain a much more detailed history. Patient states when she returned home she felt fine and was glad to be home. She states that she sat down on the couch and almost immediately fell asleep. She reports that she had little sleep the night before due to her hospital visit. This was about 3:30 4:00 in the afternoon. She reports that usually she does not take naps during the day, does not usually sleep on the couch. She states that when she awakened she had trouble remembering her family's phone numbers, took a little bit to even get her bearings as to where she was and what time of day it was. She eventually was able to contact her son, however with the recent hospitalization she was very concerned about this transient confusion and called 911. Patient denies significant anxiety problems. States that she usually does not have problems with memory Physical Exam Physical Exam: Constitutional: Alert HEENT: Mucous membranes moist. Lungs: Clear to auscultation, decreased, no wheezes rales or rhonchi CV: S1-S2, regular Abdomen: Soft, nontender, nondistended Extremities: No significant edema Neuro: No focal deficits Psych: Cooperative, slightly anxious Results & Data Results & Data Vital Signs (Past 12 Hours) Vital Signs Temp Pulse Pulse Resp BP Pulse Ox O2 Del Method 04/19/24 14:13 79 04/19/24 11:24 36.5 C 86 18 134/85 96 Room Air 04/19/24 10:00 Room Air 04/19/24 07:24 36.6 C 76 18 139/68 97 Room Air 04/19/24 07:06 74 Diagnostic Findings Reviewed imaging, laboratory and diagnostic studies. Pertinent findings as below. CBC, BMP, urinalysis, head CT all unremarkable for acute findings Personally reviewed EKG, sinus rhythm no acute ST-T wave changes
[2024-04-19] MEDS: ACETAMINOPHEN 325 MG TAB PO PRN (17:35)
[2024-04-19] MEDS: ASPIRIN 81 MG ECTAB PO SCH (20:46)
[2024-04-19] MEDS ORDERED: ERTAPENEM 1000MG 1,000 MG/10 ML SYR IV SCH (22:00)
--- NOTE | 2024-04-20 05:59 | Electrocardiogram Report ---
Test Reason : Blood Pressure : */* mmHG Vent. Rate : 87 BPM Atrial Rate : 87 BPM P-R Int : 178 ms QRS Dur : 76 ms QT Int : 376 ms P-R-T Axes : 58 16 50 degrees QTcB Int : 452 ms Sinus rhythm with occasional Premature ventricular complexes Cannot rule out Anterior infarct (cited on or before 17-Apr-2024) Abnormal ECG When compared with ECG of 17-Apr-2024 19:53, Premature ventricular complexes are now Present Premature atrial complexes are no longer Present Confirmed by Zac Melendez ([id number]) on 04/20/2024 5:59:47 AM Referred By: REFERRED SELF Confirmed By: Zac Melendez
[2024-04-20 08:01] VITALS: BP 154/83; PULSE 76; RESP 18; TEMP 97.5; O2SAT 97
--- NOTE | 2024-04-20 10:15 | Discharge Summary ---
Discharge Summary Date of Service April 20, 2024 Principal Dx & Hospital Course #1 = Principal Diagnosis (1) Transient confusion: (2) Hypertension: (3) Carotid stenosis, left: (4) Brain TIA: Plan Patient presented back to the emergency room within hours after being discharged from the hospital for TIA with complaints of transient confusion after she woke up from a nap. Evaluation in the emergency room was unremarkable. Patient was observed due to her symptoms. Patient's symptoms had cleared by the time she had presented to the emergency room. She had no further episodes of confusion here in the hospital. She was monitored on telemetry and there were no arrhythmias. After extensive conversation with the patient and her son at the bedside history revealed that she had been quite exhausted from her previous hospitalization, did not get much sleep the night before. And when she got home she sat down on the couch and promptly fell asleep. She woke suddenly without getting a a lot of restorative sleep and she had some transient confusion as to being somewhat disoriented not remembering her son's phone numbers. This cleared rapidly she was able to make a phone call to her son and after discussing her symptoms a recommended heart calling 911. With this history ultimately feel as though the patient had transient confusion in the setting of sleep deprivation and lack of restorative sleep in the setting of a 83-year-old female brain. Conversation day of discharge patient does state that she has found doing multitasks much more difficult. She states she really has to sit and focus on 1 thing and complete 1 thing before she can move onto the next where she will make mistakes or have problems completing either of the tasks. She certainly is safe to return to independent living but certainly understands that she may have some periods of time where she may be forgetful or have to repeat activities. Phone conversation of the patient's son Juan at the time of discharge. Explaining the diagnosis. He is in agreement. She will continue her medications as recommended previously and follow-up with her PCP. Notes For Next Care Provider Medication Changes From Visit None Admission HPI Per Admitting Provider History obtained from patient, family, and records. Medical history significant for TIA, PVD, valvular heart disease, moderate MR, hypertension, hyperlipidemia, migraine, recurrent UTIs, prediabetes, past tobacco abuse. Recent confinement yesterday for TIA presenting as transient aphasia/apraxia symptoms. Moderate left carotid artery stenosis on CTA. New diagnosis of prediabetes with hemoglobin A1c of 6. Patient discharged on dual antiplatelet Rx and lisinopril for better BP control. Patient woke up not knowing where she was tonight. She could not get the words out while talking to son on the phone. Denies headache, chest pain, SOB, abdominal pain, dysuria symptoms. Blood pressure markedly elevated upon arrival of EMS. SBP 170s upon arrival at the ER. Cefepime and lisinopril administered at the ER. Patient currently back to baseline mentation as per son. 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 Lungs: Clear to auscultation, decreased, no wheezes rales or rhonchi CV: S1-S2, regular Abdomen: Soft, nontender, nondistended Extremities: No significant edema Neuro: No focal deficits Psych: Cooperative, normal mood Updated Medication List Medication Instructions Recorded Confirmed Type albuterol sulfate 90 mcg/actuation 2 puff inhalation QID PRN 06/27/18 04/18/24 History aerosol inhaler (ProAir HFA) Shortness Of Breath vitamins A,C,W-lzdb-jawvkr 2,148 1 tab PO BID 06/27/18 04/18/24 History mcg-113 mg-45 mg-17.4 mg tablet (PreserVision AREDS) cholecalciferol (vitamin D3) 25 25 mcg PO QAM 04/01/21 04/18/24 History mcg (1,000 unit) capsule (Vitamin D3) faricimab-svoa 6 mg/0.05 mL 6 mg intravitreal UD 10/03/23 04/18/24 History intravitreal solution (Vabysmo) aspirin 81 mg tablet,delayed 81 mg PO HS #30 tabs 11/13/23 04/18/24 Rx release metoprolol succinate 25 mg 25 mg PO BID #60 tabs 11/13/23 04/18/24 Rx tablet,extended release 24 hr d-mannose 500 mg capsule 500 mg PO BID 12/12/23 04/18/24 History rosuvastatin 40 mg tablet 40 mg PO QAM 12/12/23 04/18/24 History ondansetron HCl 4 mg tablet 4 mg PO Q6H PRN NAUSEA/VOMITING 12/14/23 04/18/24 Rx #10 tabs clopidogrel 75 mg tablet 75 mg PO QAM 30 days #30 tabs 04/18/24 04/18/24 Rx lisinopril 5 mg tablet 5 mg PO DAILY #30 tabs 04/18/24 04/18/24 Rx Hospital Stay Data Consultations 04/18/24 21:18 ED Decision to Admit Stat Diagnostic Imagining Performed 04/18/24 22:04 CT head/brain wo con Stat Reviewed imaging, laboratory and diagnostic studies. Pertinent findings as below. Urinalysis unremarkable Other laboratory studies stable Telemetry monitoring no arrhythmias Head CT no acute findings. Pending Results Patient Have Any Pending Studies at Discharge: No Discharge Instructions Given to Patient (Per Discharging Provider) Continue to monitor your blood pressure with your PCP Discussed vascular surgery consultation with your PCP Home Health Attestation I certify that this patient is under my care and that I, or a physicians phlebotomist lab assistant working with me, had a face to-face encounter that meets the home health [id number] encounter requirements with this patient. The encounter with the patient was in whole, or in part, for the following medical condition, which is the primary reason for home health care (list medical condition): I certify that, based on my findings, the following services are medically necessary home health services: My clinical findings support the need for the above services because: Further, I certify that my clinical findings support that this patient is homebound (i.e. absences from home require considerable and taxing effort and are for medical reasons or mormon services or infrequently or of short dur ation when for other reasons) because: Certification for Home Health Services: Based on the above findings, I certify that this patient is confined to the home and needs intermittent senior care care, physical therapy and/or speech therapy or continues to need occupational therapy. The patient is under my care, and I have initiated the establishment of the plan of care. This patient will be followed by a physician who will periodically review the plan of care. Total Time Total Time Spent Total Time Spent (In Minutes): 36
== END 2024-04-20 11:29 | disposition home health service (06) | DRG 948 ==
LOC: ED 18:30 → EDINP 22:06 → 2N 04-19 00:26

== ENCOUNTER 2024-05-28 04:11 | Inpatient (IN) ==
--- OUTSIDE RECORDS SUMMARY | 2024-05-28 04:17 | External Medical Summary | Summary of Care ---
Author Name Unknown Organization [facility] Address [address] [place] [address] Phone [phone] Care Team Providers Care Car Examiner Name Role Phone Sussy Zhu PA-C Primary Care Provider [phone] Reason for Visit * Reason Comments Follow Up Encounter Details Date Type Department Care Team (Latest Contact Info) Description 05/23/2024 2:40 PM EST Office Visit Family Practice [facility] [place] [address] [facility] [place] [address] Sussy Zhu PA-C [address] [facility] [place] [address] HTN, goal below 140/90*; Hyperlipidemia, unspecified hyperlipidemia type; Exudative age-related macular degeneration of right eye, unspecified stage (HCC) Allergies Active Allergy Reactions Criticality Noted Date Comments Sulfamethoxazole-Trimethopri m 01/03/2020 nausea Penicillins 03/23/2000 rash Trimethoprim High 04/01/2021 Other reaction(s): Nausea documented as of this encounter (statuses as of 05/23/2024) Medications ASPIRIN 81 MG PO TABS one tab by mouth daily 34 5 6 Active Cholecalciferol (VITAMIN D-3) 25 MCG (1000 UT) Capsule Take 1 Capsule by mouth in the morning. Active PreserVision AREDS 2+Multi Vit Oral Capsule 2 Tablets in the morning. Active Naproxen Sodium 220 MG Oral Tablet as needed. Active Rosuvastatin Calcium 40 MG Oral Tablet (Crestor) Take 1 Tablet by mouth in the morning. 100 Tablet 3 10/12/2023 7:01 AM EDT 3 Active Albuterol Sulfate HFA 108 (90 Base) MCG/ACT Inhalation Aerosol SolutionIndicat ions:Bronchospa sm, exercise-induce d INHALE 2 PUFFS BY MOUTH FOUR TIMES A DAY 18 g 3 4 Active Metoprolol Succinate ER 25 MG Oral Tablet Extended Release 24 Hour (Toprol XL) Take one tablet by mouth daily in the morning and one tablet daily in the evening. 180 Tablet 3 4 Active Estradiol 0.1 MG/GM Vaginal Cream (Estrace) Apply pea sized amount (0.5 gm) vaginally every other night 136.607 g 3 4 Active Clopidogrel Bisulfate 75 MG Oral Tablet (pLAVix)Indicat ions:HTN, goal below 140/90 Take 1 Tablet by mouth in the morning. 90 Tablet 3 4 Active Lisinopril 5 MG Oral Tablet (Prinivil)Indic ations:HTN, goal below 140/90 Take 1 Tablet by mouth in the morning. 90 Tablet 3 4 Active Losartan Potassium 100 MG Oral Tablet (Cozaar) Take 1 Tablet by mouth in the morning. 90 Tablet 3 4 05/23/20 24 Discontinu ed(Medicat ion/Dose Changed) Clopidogrel Bisulfate 75 MG Oral Tablet (pLAVix) Take 1 Tablet by mouth in the morning. 4 05/23/20 24 Discontinu ed(Refill) Lisinopril 5 MG Oral Tablet (Prinivil) Take 1 Tablet by mouth in the morning. 4 05/23/20 24 Discontinu ed(Refill) Hospital, Clinic, or Other Facility Administered Medication Ordered Dose Route Frequency Start Date End Date Status Breeb-svoa (Vabysmo) intravitreal inj 6 mgIndications:Exudative age-related macular degeneration of right eye with active choroidal neovascularization (HCC) 6 mg IZ PRN 07/08/2023 07/07/2024 Active ROPivacaine (Naropin) inj 1.5 mgIndications:Exudative age-related macular degeneration of right eye with active choroidal neovascularization (HCC) 1.5 mg IJ PRN 02/29/2024 02/28/2025 Active documented as of this encounter (statuses as of 05/23/2024) Active Problems Problem Noted Date Diagnosed Date Exudative age-related macular degeneration of ri ght eye 05/23/2024 Bronchospasm, exercise-induced 11/17/2023 Spinal enthesopathy, cervical region 07/14/2023 Bilateral nonexudative age-related macular degen eration 05/19/2023 Degenerative disc disease, cervical 09/09/2022 History of 2019 novel coronavirus disease (COVID -19) 06/10/2022 Monoallelic mutation of LDLR gene 04/08/2022 Overview (04/08/2022): pathogenic LDLR gene variant (c.1783 C>T, p.(R595W)) detected via [employer]. Increased risk for Familial hypercholesterolemia (FH). Please click the link below into your browser for a brief summary of current clinical management recommendations for Familial Hypercholesterolemia. 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 Exudative macular degeneration 06/08/2008 Overview (12/10/2014): Dr Fofana No advance directive on file 03/15/2006 Overview (03/15/2006): no Osteoporosis 03/15/2006 HTN, goal below 140/90 06/29/2003 documented as of this encounter (statuses as of 05/23/2024) Resolved Problems Problem Noted Date Diagnosed Date Resolved Date Spinal enthesopathy, cervical region 04/12/2023 05/19/2023 Bronchospasm, exercise-induced 09/09/2021 11/16/2022 Migraine with aura and witho ut status migrainosus, not intractable 06/10/2015 06/29/2017 Overview (06/10/2015): No pain just aura, lasts about 20 minutes Cervicalgia 01/16/2012 09/02/2018 Spasm of muscle 01/16/2012 06/29/2017 Asthma with severity to be determined 12/19/2009 06/29/2017 Overview (10/07/2015): Per Asthma Taxonomy ICD-10 update of inactive term Asthma, allergic 12/15/2004 12/19/2009 Palpitations 07/08/2002 06/29/2017 ACUTE URI NOS 07/08/2002 09/02/2006 Menopause 07/08/2002 06/23/2018 Other psoriasis 01/28/2002 11/16/2022 Need for prophylactic hormon e replacement therapy (postmenopausal) 11/13/2013 Mixed dyslipidemia 9 Overview (06/10/2009): Per Lipid Taxonomy. Allergic rhinitis 09/02/2018 Lyme disease 01/16/2012 documented as of this encounter (statuses as of 05/23/2024) Immunizations Name Administration Dates Next Due COVID-19 mRNA, LNP-s, No Pre serve, 2-Dose Series (Melophone) 10/01/2021,04/07/2021,09/14/2020,08/24 COVID-19, LNP-s, No Preserve , Yimi-sucrose, [...] 0.5 mL (Fluzone) 05/21/2014,03/11/2013,04/22/2012,04/11,03/28/2010,05/22/2009,05/02/2008 ,04/04/2007,05/05/2006 Seasonal Influenza, High Dos e, Trivalent, PF, IM (Fluzone HD) 04/25/2024 Seasonal Influenza, PF, 6 M & above, [...] Date Recorded PHQ Adult Total Score 0 12/15/2023 Hunger Vital Sign Answer Date Recorded Within [...] ages 0-17 years) Not on file 12/15/2023 Comments No Sex and Gender Information Value Date Recorded Sex Assigned at Not on file Legal Sex Female 5:02 AM EST Gender Identity Not on file Sexual Orientation Not on file 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 Not on file Not on file Not on file documented as of this encounter Last Filed Vital Signs Vital Sign Reading Time Taken Comments Blood Pressure 140/80 05/23/2024 3:04 PM EST Pulse 78 05/23/2024 3:04 PM EST Temperature 36.1 C (97 F) 05/23/2024 3:04 PM EST Respiratory Rate 16 05/23/2024 3:04 PM EST Oxygen Saturation 93% 05/23/2024 3:04 PM EST Inhaled Oxygen Concentration - - Weight 51.3 kg (113 lb) 05/23/2024 3:04 PM EST Height 160 cm (5' 2.99") 05/23/2024 3:04 PM EST Body Mass Index 20.02 05/23/2024 3:04 PM EST documented in this encounter Progress Notes * Sussy Zhu PA-C - 05/23/2024 3:34 PM EST Images from the original note were not included. History of Present Illness Rachel Garcia is a 83 year old female that presents for Follow Up Patient is a 83 year old female who presents for a follow up. Feeling much better. Denies chest pain, sob, palpitations, edema, headaches, dizzy Appetite good Sleep good Urination/ bowel movements good Physical Exam Vitals: 05/23/24 1504 Temp: 97 F (36.1 C) Pulse: 78 Resp: 16 SpO2: 93% BP: 140/80 BMI: 20.02 BP Readings from Last 3 Encounters: 05/23/24 140/80 04/25/24 130/82 03/16/24 152/80 Wt Readings from Last 3 Encounters: 05/23/24 113 lb (51.3 kg) 04/25/24 110 lb 1.9 oz (50 kg) 03/16/24 113 lb (51.3 kg) General: alert, healthy, no distress, well nourished, [...] speech, no focal motor/sensory deficits, gait normal I have reviewed the following results: None Assessment and Plan HTN, goal below 140/90 (Primary) - Clopidogrel Bisulfate 75 MG Oral Tablet (pLAVix); Take 1 Tablet by mouth in the morning. - Lisinopril 5 MG Oral Tablet (Prinivil); Take 1 Tablet by mouth in the morning. Hyperlipidemia, unspecified hyperlipidemia type Exudative age-related macular degeneration of right eye, unspecified stage (HCC) Follow Up: Return in about 6 months (around 11/20/2024) for Clinic Visit. | For: Clinic Visit D/c losartan. Continue other medications. Wrap-Up Time: I spent a total of 30-39 minutes (exact time 35 mins) on the date of service in preparation, delivery, and documentation of the care provided to Rachel Garcia excluding any time spent in the performance of separately billed services. documented in this encounter Nursing Notes * Darcy Mensah LPN - 05/23/2024 3:04 PM EST The patient has been properly identified by confirmation of name and date of . Chief Complaint Patient presents with Follow Up documented in this encounter Plan of Treatment Upcoming Encounters Date Type Department Care Team (Late st Contact Info) Description 05/31/2024 9:00 AM EST Office Visit Gynecology/Obstetrics [facility] [address] [place] [address] [place] Mccracken CRNP [address] [place] [address] 05/31/2024 3:00 PM EST Office Visit Ophthalmology, [facility] [address] [place] [address] Mina Christiansen DO [address] [place] [address] 07/26/2024 11:20 AM EST Office Visit [facility] [address] [facility] [address] [place] [address] Sussy Zhu PA-C [address] [facility] [place] [address] 07/28/2024 2:40 PM EST Office Visit Podiatry [facility] [address] [place] [address] Rosalind Woodward, DPM [address] [facility] [place] [address] 11/22/2024 11:20 AM EDT Office Visit Family Practice [facility] [address] [facility] [place] [address] Sussy Zhu PA-C [address] [facility] [place] [address] Health Maintenance Due Date Last Done Comments Adult Wellness Visit 12/24/2005 DXA Scan 04/30/2016 04/30/2014, 03/29, 04/18/2012, Additional history exists DTap/Tdap Vaccines (2 - Td or Tdap) 06/30/2023 06/30/2013, 06/30/2005, 06/30/2005 COVID-19 Vaccine ( season) 2024 04/04/2022, 10/01/2021, 04/07/2021, Additional history exists Albumin/Creatinine Ratio 09/11/2024 09/11/2021 Depression Screening 12/14/2024 12/15/2023, 06/29/2017 (Discussed) GFR 02/13/2025 02/14/2024, 08/2022, 09/17/2022, Additional history exists VITAMIN D LEVEL ONCE IN A LIFETIME-USE SMARTSET# 30193 Completed 03/15/2006 Pneumococcal Vaccine: 65+ Years Completed 05/21/2014, 05/05/2006 *BISPHONATE OR OTHER ACCEPTABLE MEDICATION NEEDED FOR OSTEOPOROSIS (REFER TO SMARTSET #1146) Addressed 06/29/2017 (Refused) Overridden wi th the intention of not completing the topic Zoster Vaccines Completed 02/15/2020, 10/2019, 08/24/2019, Additional history exists Influenza Vaccine (FLU shot) Completed 04/25/2024, 03/24/2023, 04/13/2022, Additional history exists HPV (Gardasil) Vaccine Aged Out No lo nger eligible based on patient's age to complete this topic Hepatitis B Vaccine Aged Out No longe r eligible based on patient's age to complete this topic MENINGOCOCCAL (MENACTRA/MENVEO) Aged Out No longer eligible based on patient's age to complete this topic documented as of this encounter Medical Devices Implanted Type Area Brass Bobbin Winder Device Identifier Shelf Expiration Date Model / Serial / Lot Lens 23.5 [id number] - [id number] - [id number] Implanted:Qty: 1 on 10/03/2015 by Arnol Auguste MD at OR [facility] Left: Eye [employer]CH [employer] LOMB : SURGICAL 11/25/2016 [id number] / [id number] / [id number] Lens Intraoc 23.0 - [id number] - [id number] Implanted:Qty: 1 on 06/04/2016 by Flakito Sorto MD at OR [facility] Right: Eye [employer]OM[employer] 11/25/2020 [id number] / [id number] / documented as of this encounter Visit Diagnoses Diagnosis HTN, goal below 140/90- Primary Unspecified essential hypertension Hyperlipidemia, unspecified hyperlipidemia type Exudative age-related macular degeneration of right eye, unspecified stage (HCC) documented in this encounter Advance Directives * [...] Agents on File Name Relationship Healthcare Agent Ashishnc estuardo Communication Juan Garcia Adult Child Health Care Agen t (per Health Care Power of Rn Perioperative document) Care Teams Car Examiner Relationship Specialty Start Date End Date Sussy Zhu PA-C [address] [facility] [place] [address] PCP - General Physician Beef Boner 01/10/24 documented as of this encounter
--- OUTSIDE RECORDS SUMMARY | 2024-05-28 04:18 | External Medical Summary | Summary of Care ---
Author Name Unknown Organization [facility] Address [address] [place] [address] Phone [phone] Care Team Providers Care Window Cutter Name Role Phone Sussy Zhu PA-C Primary Care Provider [phone] Reason for Referral * Evaluate & Treat - Unlimited Visits (Within 30 days (routine)) - Authorized Specialty Diagnoses / Procedures Referred By Nedra chiang Referred To Contact Vascular Surgery / Cardiovascular Surgery Diagnoses Asymptomatic carotid artery stenosis, unspecified laterality Sussy Zhu PA-C [address] [place] [id number] Referral ID Status Reason Start Date Expiration Date Visits Requested Visits Authorized [id number] Authorized Specialty Services Required 4 [phone] Question Answer Referral Priority Within 30 days (routine) Where should this appointment be scheduled? [facility] What condition is the patient being seen for? Carotid stenosis / Bruit / TIA / CVA Reason for Visit * Reason Onset Date Comments Hospital Follow-Up Hospital Follow-Up 04/25/2024 Medication Administration 04/25/2024 Flu an d/or Pneumo Inj Encounter Details Date Type Department Care Team (Late st Contact Info) Description 04/25/2024 1:00 PM EDT Office Visit Family Practice [facility] [address] [place] [phone] Sussy Zhu PA-C [address] [place] [id number] HTN, goal below 140/90*; Confusion; TIA (transient ischemic attack); Asymptomatic carotid artery stenosis, unspecified laterality; Hospital discharge follow-up; Need for prophylactic vaccination and inoculation against influenza Allergies Active Allergy Reactions Criticality Noted Date Comments Sulfamethoxazole-Trimethopri m 01/03/2020 nausea Penicillins 03/23/2000 rash Trimethoprim High 04/01/2021 Other reaction(s): Nausea documented as of this encounter (statuses as of 04/25/2024) Medications Medication Sig Dispensed Refills Start Date [...] the morning. 90 Tablet 3 12/17/2023 Active Clopidogrel Bisulfate 75 MG Oral Tablet (pLAVix) Take 1 Tablet by mouth in the morning. 04/18/2024 Active Lisinopril 5 MG Oral Tablet (Prinivil) Take 1 Tablet by mouth in the morning. 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 Increased risk for Familial hypercholesterolemia (FH). Please [...] as of this encounter (statuses as of 04/25/2024) Resolved Problems Problem Noted Date Diagnosed Date [...] as of this encounter (statuses as of 04/25/2024) Immunizations Name Administration Dates Next Due COVID-19 mRNA, LNP-s, No Pre serve, 2-Dose Series ([employer]) 10/01/2021,04/07/2021,09/14/2020,08/24 COVID-19, LNP-s, No Preserve , Yimi-sucrose, Ages 12+ ([employer]) 04/04/2022 H1N1 2009 Influenza, IM 07/27/2009 PPD [...] Sign Reading Time Taken Comments Blood Pressure 130/82 04/25/2024 1:03 PM EDT Pulse 72 04/25/2024 1:03 PM EDT Temperature 36.5 C (97.7 F) 04/25/2024 1:03 PM ED T Respiratory Rate 16 04/25/2024 1:03 PM EDT Oxygen Saturation 96% 04/25/2024 1:03 PM EDT Inhaled Oxygen Concentration - - Weight 50 kg (110 lb 1.9 oz) 04/25/2024 1:03 PM EDT Height - - Body Mass Index 19.51 03/16/2024 10:58 AM EDT documented in this encounter Patient Instructions * Patient Instructions* Sussy Zhu PERI - 04/25/2024 1:16 PM EDT Taking Medicine Safely Medicine is given to help treat or prevent illness. But if you don't take it correctly, it might not help. It might even harm you. Your doctor or pharmacist can help you learn the right way to take your medicine. Listed below are some tips to help you take medicine safely. Safety Tips Have a routine for taking each medicine. Make it part of something you do each day, such as brushing your teeth or eating a meal. When you go to the hospital or your doctor's office, bring all your current medicines in their original boxes or bottles. If you can't do that, bring an up-to-date list of your medicines. Do not stop taking a prescription medicine unless your doctor tells you to. Doing so could make your condition worse. Do not share medicines. Let your doctor and pharmacist know of any allergies you have. Taking prescription medicines with alcohol, street drugs, herbs, supplements, or even some bdmh-wkq-qkafbpb medicines can be harmful. Talk to your doctor or pharmacist before using any of these things while taking a prescription medicine. When filling your prescriptions, try using the same pharmacy for all your medicines. If not, let the pharmacist know what medicines you are already on. Keep medicines out of the reach of children and pets. Do not use medicine that has or that doesn't look or smell right. Get rid of it properly. To find out the right way to get rid of medicine: Call your [facility] government's household trash and recycling service and ask if a drug take-back program is available in your community. Call your local pharmacy and ask the right way to get rid of the medicine. Go to http://www.fda.gov/ForConsumers/ConsumerUpdates/lrs639315 to learn how to get rid of medicines safely. Using Generic Medicines Medicines have brand names and generic (chemical) names. When a medicine is first made, it is sold only under its brand name. Later, it can be made and sold as a generic. Generic medicines cost less than brand-name medicines and most work just as well. Most people can use the generic medicine instead of the brand-name medicine, unless their doctor says otherwise. Eric Peres, [address] [place] [address]. All rights reserved. This information is not intended as a substitute for professional medical care. Always follow your healthcare professional's instructions. Coping with Your Diagnosis of a Chronic Health Condition If you have a chronic health condition, you have a problem that may not go away over time. Heart disease, asthma, arthritis, and diabetes are just a few of the chronic conditions that exist. Right now, these conditions have no known cure. But you can take an active role in managing your health. Coping with Your Diagnosis If you've just learned about your health condition, you may be angry, depressed, or afraid. Or you might feel relieved just to know what's wrong. Even if you've known about your health problem for a while, adjusting to it can be hard. But learning about your condition can help you cope. Look for books at your local library. If you have access to a computer, check the Internet. Or contact a group that focuses on your specific problem. Accepting Change Change is hard for most people. Yet right now you may be facing many changes. What you eat or the way you work may change. Your moods, and even your symptoms, might vary from day to day. Although it isn't easy, learning to accept change can help you feel more in control. Taking Control Feeling you have control can make living with your condition easier. Discuss treatment options withyour health care provider. The more you know, the more active you can be in your care. Moving Forward You may wonder whether you will be able to do the things you've always done. That depends on your age, the condition you have, and your goals. To make the most of each day, try to build caring relationships, be active, and eat right. Also, do your best to keep a sense of humor. Eric Peres, [address] [place] [address], [place] [address]. All rights reserved. This information is not intended as a substitute for professional medical care. Always follow your healthcare professional's instructions. documented in this encounter Progress Notes * Sussy Zhu PA-C - 04/25/2024 1:16 PM EDT SUBJECTIVE: Rachel Garcia is a 83 year old female. Chief Complaint Patient presents with Hospital Follow-Up Hospital Follow-Up Recent Admission: Patient was recently admitted to [facility]. The date of discharge was 04/20/24. Discharge report received and reviewed. HPI: patient is a 83 year old female who presents after a recent hospitalization . Was seen on 04/17, discharged but was back in 4 hours. Was kept overnight and discharged on 04/20. Was determined tohave a TIA and elevated blood pressure. Was placed on lisinopril and plavix. Feeling well. Having issues with feet and knees. Denies chest pain, sob, palpitations, edema,headaches, dizzy Appetite good Sleep good Urination// bowel movements good Patient Active Problem List Diagnosis HTN, goal [...] mouth in the morning. 90 Tablet 3 Clopidogrel Bisulfate 75 MG Oral Tablet (pLAVix) Take 1 Tablet by mouth in the morning. Lisinopril 5 MG Oral Tablet (Prinivil) Take 1 Tablet by mouth in the morning. Current Facility-Administered Medications Medication Dose Route Frequency Provider Last Rate Last Admin Faricimab-svoa (Vabysmo) intravitreal inj 6 mg 6 mg Intravitreal PRN Mina Christiansen, DO 6 mgat 04/13/24 1526 ROPivacaine (Naropin) inj 1.5 mg 1.5 mg Injection PRN 1.5 mg at 04/13/24 1525 Current and discharge medications have been reconciled. Review of patient's allergies indicates: Allergen Reactions Trimethoprim Other reaction(s): Nausea Bactrim [Sulfamethoxazole-Trimethoprim] nausea Penicillins rash OBJECTIVE: BP 130/82 | Pulse 72 | Temp 36.5 C (97.7 F) (Tympanic) | Resp 16 | Wt 50 kg (110 lb 1.9 oz) | SpO2 96% | BMI 19.51 kg/m | BSA 1.49 m Review Of Systems: Skin: negative Eyes: negative Ears/Nose/Throat: negative Respiratory: negative Cardiovascular: hypertension Gastrointestinal: negative Genitourinary: negative Musculoskeletal: BILATERAL knee(s), BILATERAL ankle/feet Neurologic: negative Psychiatric: negative Hematologic/Lymphatic/Immunologic: negative Endocrine: negative PHYSICAL EXAM: General: alert, healthy, no distress, well nourished, [...] speech, no focal motor/sensory deficits, gait normal ASSESSMENT: HTN, goal below 140/90 (Primary) - DISCH MED RECON CUR MED LIS Confusion - DISCH MED RECON CUR MED LIS TIA (transient ischemic attack) - DISCH MED RECON CUR MED LIS Asymptomatic carotid artery stenosis, unspecified laterality - DISCH MED RECON CUR MED LIS Hospital discharge follow-up - DISCH MED RECON CUR MED LIS Follow Up: Return in 3 months (on 07/26/2024). PLAN: Continue present medication(s): Immunization(s) ordered: influenza Follow up in 3 month(s). I spent a total of 40-54 minutes (exact time 45 mins) minutes on the date of service in preparation, delivery, and documentation of the care provided to Rachel Garcia excluding any time spent in performance of separately billed services. Sussy Zhu PA-C documented in this encounter Nursing Notes * Maddy Earl LPN - 04/25/2024 1:00 PM EDT Hospital follow up Pt states she is feeling good documented in this encounter Plan of Treatment Upcoming Encounters Date Type Department Care Team (Late st Contact Info) Description 04/26/2024 1:20 PM EDT Office Visit Podiatry [facility] [address] [facility] [place] [address] [address] Rosalind Woodward, CHANDLER [address] [place], [place] [address] [address] 05/23/2024 2:40 PM EST Office Visit Family Practice [facility] [place] [address] [place] [address] Sussy Zhu PA-C [address] [facility] [place] [address] 05/31/2024 3:00 PM EST Office Visit Ophthalmology, [facility] [address] [facility] [place] [address] Mina Christiansen DO [address] [place] [address] 06/29/2024 12:00 PM EST Office Visit Gynecology/Obstetrics [facility] [address] [place] [address] Ny Mccracken CRNP [address] [place] [address] 07/26/2024 11:20 AM EST Office Visit Family Practice [facility] [address] [facility] [place] [address] Sussy Zhu PA-C [address] [facility] [place] [address] Scheduled Referrals Name Type Priority Associated Diagnoses Orde r Schedule VASCULAR SURGERY REFERRAL OP Referral Within 30 days (routine) Asymptomatic carotid artery stenosis, unspecified laterality Ordered: 04/25/2024 Health Maintenance Due Date Last Done Comments [...] D LEVEL ONCE IN A LIFETIME-USE SMARTSET# 21781 Completed 03/15/2006 Pneumococcal Vaccine: 65+ Years Completed [...] this encounter Medical Devices Implanted Type Area Sign Writer Hand Device Identifier Shelf Expiration Date Model / Serial / Lot Lens 23.5 M160l - [id number] - [id number] Implanted:Qty: 1 on 10/03/2015 by Arnol Auguste MD at OR [facility] Left: Eye [employer]USCH [employer] LOMB : SURGICAL 11/25/2016 [id number]-24.5 / [id number] / [id number] Lens Intraoc 23.0 - [id number] - [id number] Implanted:Qty: 1 on 06/04/2016 by Flakito Sorto MD at OR [facility] Right: Eye BAUSCH [employer] LOMB 11/25/2020 [id number] / [id number] / documented as of this encounter Visit Diagnoses Diagnosis HTN, goal below 140/90- Primary Unspecified essential hypertension Confusion Unspecified psychosis TIA (transient ischemic attack) Unspecified transient cerebral ischemia Asymptomatic carotid artery stenosis, unspecified laterality Hospital discharge follow-up Other follow-up examination Need for prophylactic vaccination and inoculation against influenza documented in this encounter Advance Directives * [...] Agents on File Name Relationship Healthcare Agent [facility] p Communication Juan Garcia Adult Child Health Care Agen t (per Health Care Power of Drafter Engineering document) Care Teams Window Cutter Relationship Specialty Start Date End Date Marko September Pito, ARIESC [address] [facility] [place] [address] PCP - General Physician Talking Books Library Clerk 01/10/24 documented as of this encounter"
--- OUTSIDE RECORDS SUMMARY | 2024-05-28 04:18 | External Medical Summary | Summary of Care ---
Author Name Unknown Organization [facility] Address [address] [place] [facility] [place] [address] Phone [phone] Care Team Providers Care Prepress Supervisor Name Role Phone Sussy Zhu PERI Primary Care Provider [phone] Encounter Details Date Type Department Care Team (Late st Contact Info) Description 04/21/2024 Population Health External Data Unspecified Department Allergies Active Allergy Reactions Criticality Noted Date Comments Sulfamethoxazole-Trimethopri m 01/03/2020 nausea Penicillins 03/23/2000 rash Trimethoprim High 04/01/2021 Other reaction(s): Nausea documented as of this encounter (statuses as of 04/21/2024) Medications Medication Sig Dispensed Refills Start Date [...] as of this encounter (statuses as of 04/21/2024) Active Problems Problem Noted Date Diagnosed Date Bronchospasm, exercise-induced 11/17/2023 Spinal enthesopathy, cervical region 07/14/2023 Bilateral nonexudative age-related macular degen eration 05/19/2023 Degenerative disc disease, cervical 09/09/2022 Hyperlipidemia 09/09/2022 History of 2019 novel coronavirus disease (COVID -19) 06/10/2022 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 Increased risk for Familial hypercholesterolemia (FH). Please [...] as of this encounter (statuses as of 04/21/2024) Resolved Problems Problem Noted Date Diagnosed Date [...] as of this encounter (statuses as of 04/21/2024) Immunizations Name Administration Dates Next Due COVID-19 mRNA, LNP-s, No Pre serve, 2-Dose Series ([employer]) 10/01/2021,04/07/2021,09/14/2020,08/24 COVID-19, LNP-s, No Preserve , Yimi-sucrose, [...] Visit Family Practice [facility] [place] [address] [place] [address] Sussy Zhu PA-C [address] [facility] [place] [address] 04/26/2024 1:20 PM EDT Office Visit Podiatry [facility] [address] [place] [address] Rosalind Woodward, DPM [address] [facility] [place] [address] 05/23/2024 2:40 PM EST Office Visit Family Practice [facility] [address] [facility] [place] [address] Sussy Zhu PA-C [address] [facility] [place] [address] 05/31/2024 3:00 PM EST Office Visit Ophthalmology, [facility] [address] [place] [address] Mina Christiansen DO [address] [place] [address] 06/29/2024 12:00 PM EST Office Visit Gynecology/Obstetrics [facility] [address] [place] [address] Ny Mccracken CRNP [address] [place] [address] Health Maintenance Due Date Last Done Comments [...] D LEVEL ONCE IN A LIFETIME-USE SMARTSET# 66820 Completed 03/15/2006 Pneumococcal Vaccine: 65+ Years Completed [...] this encounter Medical Devices Implanted Type Area Shuttle Inspector Device Identifier Shelf Expiration Date Model / Serial / Lot Lens 23.5 M160l - [id number] - [id number] Implanted:Qty: 1 on 10/03/2015 by Arnol Auguste MD at OR [facility] Left: Eye [employer] LOM[employer] : SURGICAL 11/25/2016 [id number] / [id number] / [id number] Lens Intraoc 23.0 - [id number] - [id number] Implanted:Qty: 1 on 06/04/2016 by Flakito Sorto MD at OR [facility] Right: Eye [employer]OM[employer] 11/25/2020 [id number] / [id number] / documented as of this encounter Advance [...] Agen t (per Health Care Power of Tapper Operator document) Care Teams Prepress Supervisor Relationship Specialty Start Date End Date MarkoSeptember PERI Sheldon [address] [facility] [place] [address] PCP - General Physician Manager Office 01/10/24 documented as of this encounter
--- OUTSIDE RECORDS SUMMARY | 2024-05-28 04:18 | External Medical Summary | Summary of Care ---
Author Name Unknown Organization [facility] Address [address] [place] [address] Phone [phone] Care Team Providers Care Legal Paraprofessional Name Role Phone Sussy Zhu PERI Primary Care Provider [phone] Encounter Details Date Type Department Care Team (Late st Contact Info) Description 04/24/2024 1:30 PM EDT Scheduled Telephone Care Coordination and Integration [address] [place] [address] Qian Handley, [facility] Patent Legal Assistant [address] [place] [address] Allergies Active Allergy Reactions Criticality Noted Date Comments Sulfamethoxazole-Trimethopri m 01/03/2020 nausea Penicillins 03/23/2000 rash Trimethoprim High 04/01/2021 Other reaction(s): Nausea documented as of this encounter (statuses as of 04/24/2024) Medications Medication Sig Dispensed Refills Start Date [...] as of this encounter (statuses as of 04/24/2024) Active Problems Problem Noted Date Diagnosed Date Bronchospasm, exercise-induced 11/17/2023 Spinal enthesopathy, cervical region 07/14/2023 Bilateral nonexudative age-related macular degen eration 05/19/2023 Degenerative disc disease, cervical 09/09/2022 Hyperlipidemia 09/09/2022 History of 2019 novel coronavirus disease (COVID -19) 06/10/2022 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 Increased risk for Familial hypercholesterolemia (FH). Please [...] as of this encounter (statuses as of 04/24/2024) Resolved Problems Problem Noted Date Diagnosed Date [...] as of this encounter (statuses as of 04/24/2024) Immunizations Name Administration Dates Next Due COVID-19 [...] Description 04/25/2024 1:00 PM EDT Office Visit [facility] [address] [facility] [place] [address] Sussy Zhu PA-C [address] [facility] [place] [address] 04/26/2024 1:20 PM EDT Office Visit Podiatry [facility] [address] [facility] [place] [address] Rosalind Woodward, CHANDLER [address] [place] [address] [place] [address] 05/23/2024 2:40 PM EST Office Visit [facility] [address] [facility] [place] [address] Sussy Zhu PA-C [address] [facility] [place] [address] 05/31/2024 3:00 PM EST Office Visit Ophthalmology, [facility] [address] [place] [address] Mina Christiansen DO [address] [place] [address] 06/29/2024 12:00 PM EST Office Visit Gynecology/Obstetrics [facility] [address] [place] [address] Ny Mccracken CRNP [address] [place] [address] Health Maintenance Due Date Last Done Comments [...] D LEVEL ONCE IN A LIFETIME-USE SMARTSET# 40444 Completed 03/15/2006 Pneumococcal Vaccine: 65+ Years Completed 05/21/2014, 05/05/2006 *BISPHONATE OR OTHER ACCEPTABLE MEDICATION NEEDED FOR OSTEOPOROSIS (REFER TO SMARTSET #4843) Addressed 06/29/2017 (Refused) Overridden wi th the [...] this encounter Medical Devices Implanted Type Area Retail Loss Prevention Specialist Device Identifier Shelf Expiration Date Model / Serial / Lot Lens 23.5 M160l - [id number] - [id number] Implanted:Qty: 1 on 10/03/2015 by Arnol Auguste MD at OR [facility] Left: Eye [employer]OM[employer] : SURGICAL 11/25/2016 [id number]-37.5 / [id number] / [id number] Lens Intraoc 23.0 - [id number] - [id number] Implanted:Qty: 1 on 06/04/2016 by Flakito Sorto MD at OR [facility] Right: Eye [employer]OM[employer] 11/25/2020 [id number] / [id number] / documented as of this encounter Advance [...] Agents on File Name Relationship Healthcare Agent [facility] p Communication Juan Garcia Adult Child Health Care Agen t (per Health Care Power of Claim Rep document) Care Teams Legal Paraprofessional Relationship Specialty Start Date End Date MarkoSeptember PERI Sheldon [address] [facility] [place] [address] PCP - General Physician Patent Legal Assistant 01/10/24 documented as of this encounter
--- OUTSIDE RECORDS SUMMARY | 2024-05-28 04:18 | External Medical Summary | Summary of Care ---
Author Name Unknown Organization [facility] Address [address] [facility] [place] [address] Phone [phone] Care Team Providers Care Buyer Grain Name Role Phone Sussy Zhu PA-C Primary Care Provider [phone] Reason for Visit * Reason Onset Date Comments Referral 04/27/2024 Advice 04/27/2024 Encounter Details Date Type Department Care Team (Late st Contact Info) Description 04/27/2024 Telephone Family Practice [facility] [address] [place] [address] Sussy Zhu PA-C [address] [place] [address] Referral; Advice Allergies Active Allergy Reactions Criticality Noted Date Comments Sulfamethoxazole-Trimethopri m 01/03/2020 nausea Penicillins 03/23/2000 rash Trimethoprim High 04/01/2021 Other reaction(s): Nausea documented as of this encounter (statuses as of 05/15/2024) Medications ASPIRIN 81 MG PO TABS one [...] other night 136.607 g 3 4 Active Losartan Potassium 100 MG Oral Tablet (Cozaar) Take 1 Tablet by mouth in the morning. 90 Tablet 3 4 Active Clopidogrel Bisulfate 75 MG Oral Tablet (pLAVix) Take 1 Tablet by mouth in the morning. 4 Active Lisinopril 5 MG Oral Tablet (Prinivil) Take 1 Tablet by mouth in the morning. 4 Active Hospital, Clinic, or Other Facility Administered [...] as of this encounter (statuses as of 05/15/2024) Active Problems Problem Noted Date Diagnosed Date Bronchospasm, exercise-induced 11/17/2023 Spinal enthesopathy, cervical region 07/14/2023 Bilateral nonexudative age-related macular degen eration 05/19/2023 Degenerative disc disease, cervical 09/09/2022 Hyperlipidemia 09/09/2022 History of 2019 novel coronavirus disease (COVID -19) 06/10/2022 Monoallelic mutation of LDLR gene 04/08/2022 Overview (04/08/2022): pathogenic LDLR gene variant (c.1783 C>T, p.(R595W)) detected via [employer]. Increased risk for Familial hypercholesterolemia (FH). Please click the link below into your browser for a brief summary of current clinical management recommendations for Familial Hypercholesterolemia. 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 Exudative macular degeneration 06/08/2008 Overview (12/10/2014): Dr Fofana No advance directive on file 03/15/2006 Overview (03/15/2006): no Osteoporosis 03/15/2006 HTN, goal below 140/90 06/29/2003 documented as of this encounter (statuses as of 05/15/2024) Resolved Problems Problem Noted Date Diagnosed Date [...] as of this encounter (statuses as of 05/15/2024) Immunizations Name Administration Dates Next Due COVID-19 mRNA, LNP-s, No Pre serve, 2-Dose Series (Tugg) 10/01/2021,04/07/2021,09/14/2020,08/24 COVID-19, LNP-s, No Preserve , Yimi-sucrose, [...] encounter Miscellaneous Notes * Telephone Encounter - Lexii Hazel OSA - 05/15/2024 2:39 PM EST Patient is going to keep her appointment on 05/23/24 to ask her pcp about the podiatry referral. * Telephone Encounter - Kamilla Germain OSA - 04/27/2024 11:29 AM EDT Pt would like to know if she needs to keep her 05/23 appointment. She saw Sussy Coates on 04/25.Pt would like a referral for podiatry. documented in this encounter Plan of Treatment Upcoming Encounters Date Type Department Care Team (Late st Contact Info) Description 05/23/2024 2:40 PM EST Office Visit Family Practice [facility] [address] [place] [address] Sussy Zhu PA-C [address] [facility] [place] [address] 05/31/2024 3:00 PM EST Office Visit Ophthalmology, [facility] [address] [facility] [place] [address] Mina Christiansen DO [address] [place] [address] 07/26/2024 11:20 AM EST Office Visit Family Practice [facility] [address] [facility] [place] [address] Sussy Zhu PA-C [address] [facility] [place] [address] 07/28/2024 2:40 PM EST Office Visit Podiatry [facility] [address] [facility] [place] [address] Rosalind Woodward, DPNedra [address] [facility] [place] [address] Health Maintenance Due Date Last Done Comments [...] D LEVEL ONCE IN A LIFETIME-USE SMARTSET# 37272 Completed 03/15/2006 Pneumococcal Vaccine: 65+ Years Completed [...] this encounter Medical Devices Implanted Type Area Echocardiograph Tech Device Identifier Shelf Expiration Date Model / Serial / Lot Lens 23.5 M160l - [id number] - [id number] Implanted:Qty: 1 on 10/03/2015 by Arnol Auguste MD at OR [facility] Left: Eye [employer] LOMB : SURGICAL 11/25/2016 [id number] / [id number] / [id number] Lens Intraoc 23.0 - [id number] - [id number] Implanted:Qty: 1 on 06/04/2016 by Flakito Sorto MD at OR [facility] Right: Eye [employer]USCH [employer] LOMB 11/25/2020 [id number] / [id number] / documented as of this encounter Advance [...] Agents on File Name Relationship Healthcare Agent [facility] p Communication Juan Garcia Adult Child Health Care Phuc t (per Health Care Power of Editorial Manager document) Care Teams Buyer Grain Relationship Specialty Start Date End Date September, PA-C [address] [place] [address] PCP - General Physician It Security Administrator 01/10/24 documented as of this encounter
--- OUTSIDE RECORDS SUMMARY | 2024-05-28 04:18 | External Medical Summary | Summary of Care ---
Author Name Unknown Organization [facility] Address [address] [place] [address] Phone [phone] Care Team Providers Care Platform Inspector Name Role Phone Sussy Zhu PERI Primary Care Provider [phone] Encounter Details Date Type Department Care Team (Late st Contact Info) Description 05/15/2024 12:30 PM EST Scheduled Telephone Care Coordination and Integration [address] [place] [address] Evelyn Enciso, Community Health Diver Assistant [address] [place] [address] Allergies Active Allergy Reactions Criticality Noted Date [...] gene variant (c.1783 C>T, p.(R595W)) detected via [employer]. Increased risk for Familial hypercholesterolemia (FH). Please [...] mRNA, LNP-s, No Pre serve, 2-Dose Series (REMOTV) 10/01/2021,04/07/2021,09/14/2020,08/24 COVID-19, LNP-s, No Preserve , Yimi-sucrose, [...] No 12/15/2023 Does the household have a [facility] source of income? (Household - for ages [...] as of this encounter Progress Notes * Evelyn Enciso, Community Health Diver Assistant - 05/15/2024 12:00 PM EST Telemedicine visit: No Community Health Diver Assistant (LOLY) documentation: CHW outbound call to patient Blood Pressure 133/61 this am HR 79, 05/09/24- 137/78 evening 157/77 hr 81 05/10/24- 124/74 hr 70 evening 145/78 hr77 05/11/24- 145/87 hr 76 evening 139/71 hr 79 05/12/24- No Morning Evening 139/74 hr 76 05/13/24- 145/74 hr 73 Evening 153/83 hr 80 05/14/24- No morning Evening 139/779 hr 72 Denies confusion She is forgetful Appetite is good Has energy , no trouble getting out Bowels and Bladder working ok Denies Nausea unless she takes a handful of pills, drinks bullion and helps the nausea Evelyn Enciso [facility] Health Plan Community Health Worker Call or Text- [phone] documented in this encounter Plan of Treatment Upcoming Encounters Date Type Department Care Team (Late st Contact Info) Description 05/23/2024 2:40 PM EST Office [place] [address] [place] [address] Sussy Zhu PA-C [address] [place] [address] 05/31/2024 3:00 PM EST Office Visit Ophthalmology, [facility] [address] [facility] [place] [address] Mina Christiansen DO [address] [facility] [place] [address] 07/26/2024 11:20 AM EST Office Visit Family Practice [facility] [address] [place] [address] Sussy Zhu, ARIESC [address] [place] [address] 07/28/2024 2:40 PM EST Office Visit Podiatry [facility] [address] [facility] [place] [address] Rosalind Woodward, CHANDLER [address] [place] [address] Health Maintenance Due Date Last Done Comments Adult Wellness Visit 12/24/2005 DXA Scan 04/30/2016 04/30/2014, 03/29, 04/18/2012, Additional history exists DTap/Tdap Vaccines (2 - Td or Tdap) 06/30/2023 06/30/2013, 06/30/2005, 06/30/2005 COVID-19 Vaccine ( season) 2024 04/04/2022, 10/01/2021, 04/07/2021, Additional history exists Albumin/Creatinine Ratio 09/11/2024 09/11/2021 Depression Screening 12/14/2024 12/15/2023, 06/29/2017 (Discussed) GFR 02/13/2025 02/14/2024, 10/0 08/2022, 09/17/2022, Additional history exists VITAMIN D LEVEL ONCE IN A LIFETIME-USE SMARTSET# 24701 Completed 03/15/2006 Pneumococcal Vaccine: 65+ Years Completed [...] this encounter Medical Devices Implanted Type Area [place] Device Identifier Shelf Expiration Date Model / Serial / Lot Lens 23.5 M160l - [id number] - [id number] Implanted:Qty: 1 on 10/03/2015 by Arnol Auguste MD at OR [facility] Left: Eye [employer]USCH [employer] LOMB : SURGICAL 11/25/2016 [id number] / [id number] / [id number] Lens Intraoc 23.0 - [id number] - [id number] Implanted:Qty: 1 on 06/04/2016 by Flakito Sorto MD at OR [facility] Right: Eye BAUSCH [employer] LOMB 11/25/2020 [id number] / [id number] / documented as of this encounter Advance [...] Agents on File Name Relationship [facility] Juan Garcia Adult Child Health Care Agen t (per Health Care Power of Engagement Executive document) Care Teams Platform Inspector Relationship Specialty Start Date End Date Marko September PREI Sheldon [address] [place] [address] PCP - General Physician Diver Assistant 01/10/24 documented as of this encounter
--- OUTSIDE RECORDS SUMMARY | 2024-05-28 04:18 | External Medical Summary | Summary of Care ---
Author Name Unknown Organization [facility] Address [address] [facility] [place] [address] Phone [phone] Care Team Providers Care Guest Relations Representative Name Role Phone Sussy Zhu PERI Primary Care Provider [phone] Encounter Details Date Type Department Care Team (Late st Contact Info) Description 04/20/2024 Population Health External Data Unspecified Department Allergies Active Allergy Reactions Criticality Noted Date Comments Sulfamethoxazole-Trimethopri m 01/03/2020 nausea Penicillins 03/23/2000 rash Trimethoprim High 04/01/2021 Other reaction(s): Nausea documented as of this encounter (statuses as of 04/20/2024) Medications Medication Sig Dispensed Refills Start Date [...] as of this encounter (statuses as of 04/20/2024) Active Problems Problem Noted Date Diagnosed Date Bronchospasm, exercise-induced 11/17/2023 Spinal enthesopathy, cervical region 07/14/2023 Bilateral nonexudative age-related macular degen eration 05/19/2023 Degenerative disc disease, cervical 09/09/2022 Hyperlipidemia 09/09/2022 History of 2019 novel coronavirus disease (COVID -19) 06/10/2022 Monoallelic mutation of LDLR gene 04/08/2022 Overview: pathogenic LDLR gene variant (c.1783 C>T, p.(R595W)) detected via [employer]. Increased risk for Familial hypercholesterolemia (FH). [...] as of this encounter (statuses as of 04/20/2024) Resolved Problems Problem Noted Date Diagnosed Date [...] as of this encounter (statuses as of 04/20/2024) Immunizations Name Administration Dates Next Due COVID-19 mRNA, LNP-s, No Pre serve, 2-Dose Series (Fonix) 10/01/2021,04/07/2021,09/14/2020,08/24 COVID-19, LNP-s, No Preserve , Yimi-sucrose, [...] Practice State [facility] Rodriguez [address] [place] [address] Sussy Zhu PA-C [address] [facility] [place] [address] 04/26/2024 1:20 PM EDT Office Visit Podiatry [facility] [address] [place] [address] Rosalind Woodward, DPM [address] [facility] [place] [address] 05/23/2024 2:40 PM EST Office Visit Family Practice [facility] [address] [facility] [place] [address] Sussy Zhu PA-C [address] [facility] [place] [address] 05/31/2024 3:00 PM EST Office Visit Ophthalmology, [facility] [address] [place] [address] Mina Christiansen DO [address] [place] [address] 06/29/2024 12:00 PM EST Office Visit Gynecology/Obstetrics [facility] [address] [place] [address] Ny Mccracken CRNP [address] [place] [address] Health Maintenance Due Date Last Done Comments [...] D LEVEL ONCE IN A LIFETIME-USE SMARTSET# 55072 Completed 03/15/2006 Pneumococcal Vaccine: 65+ Years Completed [...] this encounter Medical Devices Implanted Type Area Fur Storage Clerk Device Identifier Shelf Expiration Date Model / Serial / Lot Lens 23.5 M160l - [id number] - [id number] Implanted:Qty: 1 on 10/03/2015 by Arnol Auguste MD at OR [facility] Left: Eye BAUSCH [employer] LOMB : SURGICAL 11/25/2016 [id number] / [id number] / [id number] Lens Intraoc 23.0 - [id number] - [id number] Implanted:Qty: 1 on 06/04/2016 by Flakito Sorto MD at OR [facility] Right: Eye BAUSCH & LOMB 11/25/2020 [id number] / [id number] / documented as of this encounter Advance [...] Agen t (per Health Care Power of Lpn Cma document) Care Teams Guest Relations Representative Relationship Specialty Start Date End Date MarkoSeptember PERI Sheldon [address] [facility] [place] [address] PCP - General Physician Kiln Burner 01/10/24 documented as of this encounter
--- OUTSIDE RECORDS SUMMARY | 2024-05-28 04:18 | External Medical Summary | Summary of Care ---
Author Name Unknown Organization [facility] Address [address] [facility] [place] [address] Phone [phone] Care Team Providers Care Able Bodied Tankerman Name Role Phone Sussy Zhu PERI Primary Care Provider [phone] Reason for Visit * Reason Comments NEW PATIENT Bilateral feet Encounter Details Date Type Department Care Team (Late st Contact Info) Description 04/26/2024 1:20 PM EDT Office Visit Podiatry [facility] [address] [facility] [address] Rosalind Woodward, DPNedra [address] [facility] [place] [address] Callus of foot*; Pain in both feet; Hammer toes of both feet Allergies Active Allergy Reactions Criticality Noted Date Comments Sulfamethoxazole-Trimethopri m 01/03/2020 nausea Penicillins 03/23/2000 rash Trimethoprim High 04/01/2021 Other reaction(s): Nausea documented as of this encounter (statuses as of 04/26/2024) Medications Medication Sig Dispensed Refills Start Date [...] as of this encounter (statuses as of 04/26/2024) Active Problems Problem Noted Date Diagnosed Date Bronchospasm, exercise-induced 11/17/2023 Spinal enthesopathy, cervical region 07/14/2023 Bilateral nonexudative age-related macular degen eration 05/19/2023 Degenerative disc disease, cervical 09/09/2022 Hyperlipidemia 09/09/2022 History of 2019 novel coronavirus disease (COVID -19) 06/10/2022 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 Increased risk for Familial hypercholesterolemia (FH). Please [...] as of this encounter (statuses as of 04/26/2024) Resolved Problems Problem Noted Date Diagnosed Date [...] as of this encounter (statuses as of 04/26/2024) Immunizations Name Administration Dates Next Due COVID-19 mRNA, LNP-s, No Pre serve, 2-Dose Series ([employer]) 10/01/2021,04/07/2021,09/14/2020,08/24 COVID-19, LNP-s, No Preserve , Yimi-sucrose, [...] as of this encounter Progress Notes * Rosalind Woodward, DPM - 04/26/2024 12:46 PM EDT Podiatry New Patient Note [facility] Name: Rachel Garcia : 1940 Date: 04/26/2024 CHIEF COMPLAINT: calluses/corn and possible wart on left foot HISTORY OF PRESENT ILLNESS: This patient is a 83 year old female who presents today with complaintsof painful corns to both feet mainly at the 2nd toes. She had seen my colleague in September 2020. Today, she also reports a smaller area to the bottom of the left foot of which she questions if this is a wart. She has tried OTC corn options but feels they do not stay in place. She has tried toe spacers and sleeves as well without much change. More recently, she has noted less pain with walking in shoes without socks. She offers no other concerns today. Past Medical History: Diagnosis Date Allergic rhinitis [...] 2007 EXERCISE ECHO 06/2004 normal, Dr Ramirez, [facility] BI[facility] OF SKIN; [...] Right 09/23/2023 # 3 Vabysmo OD, Dr. Chritsiansen INJECTION OF EYE DRUG Right 10/21/2023 # 4 Vabysmo OD, Dr. Christiansen INJECTION OF EYE DRUG Right 11/30/2023 #5 Vabysmo OD, Dr. Christiansen INJECTION OF EYE DRUG Right 01/04/2024 #6 Vabysmo OD; Dr Christiansen INJECTION OF EYE DRUG Right 02/29/2024 # 7 Vabysmo, Dr. Christiansen INJECTION OF EYE DRUG Right 04/13/2024 # 8 VCabysmo OD, Dr. Christiansen LASER TRABECULOPLASTY 07/06/2008 Focal/Grid [...] 06/09/18-06/09/19 AVASTIN OD CONSENT SIGNED, Dr. Christiansen MISRENEANEOUS ORDER ([facility] ONLY) ACT 112 FORM SIGNED; DR CHRISTIANSEN (08/23/2018) MISCELLANEOUS ORDER ([facility] ONLY) Right 06/14/2019-06/14/2020 AVASTIN OD CONSENT, DR. ANNE DAWN ORDER ([facility] ONLY) Right 06/14/2019-06/14/2020 Eylea OD consent signed, Dr.Cessna DAWN ORDER ([facility] ONLY) Right EYLEA OD CONSENT SIGNED, Dr. Christiansen (Exp 06-05-2021) OTHER (INFORMATION) Bilateral EYLEA CONSENT OU, Dr. Christiansen/Jace (Exp 07-17-2022) OTHER (INFORMATION) Bilateral EYLEA CONSENT SIGNED EXP 07/28/23; CAMMY OTHER (INFORMATION) Bilateral VABYSMO OU CONSENT DR. WESLEY EXP. 07/08/24 REMOVE CATARACT, INSERT LENS PROSTH Left 10/03/2015 EXTRACAPSULAR CATARACT REMOVAL WITH INTRAOCULAR LENS performed by Arnol Auguste MD at OR [facility] REMOVE CATARACT, INSERT LENS PROSTH Right 06/04/2016 right EXTRACAPSULAR CATARACT REMOVAL WITH INTRAOCULAR LENS performed by Flakito Sorto MD at OR [facility] REMOVE TONSILS & ADENOIDS, UNDER 12 Tonsillectomy/Adenoids,<12 Y/O VAGINAL DELIVERY ONLY times 4 Family History Adopted: Yes Problem Relation Name Age of Onset Stroke Son Heart Disorder Daughter hypercholesteremia Heart Disorder Son hypercholesteremia Heart Disorder Son hypercholesteremia No Past Hx Son Other (Other) Son denies any family history of skin diseases or skin cancer. 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 (Adult - for ages 18 years and over): No Food Insecurity: No Food Insecurity (12/15/2023) Food Insecurity Do you need food for this week? (Adult - for ages 18 years and over): No Transportation Needs: No Transportation Needs (12/15/2023) Transportation Needs Has lack of transportation kept you from medical appointments, meetings, work, or from getting things needed for daily living? Check all that apply. (Adult - for ages 18 years and over): No Social Connections: Socially Integrated (12/15/2023) Social Connections How often do you feel lonely or isolated from those around you? (Adult - for ages 18 years and over): Never Housing Stability: Low Risk (12/15/2023) Housing Stability Do you currently live in a group home or have no steady place to sleep at night? (Adult - for ages 18 years and over): No Are you homeless or worried that you might be in the future? (Adult - for ages 18 years and over): No Current Outpatient Medications Medication Sig Dispense Refill [...] Injection PRN 1.5 mg at 04/13/24 1525 ALLERGIES: Review of patient's allergies indicates: Allergen Reactions Trimethoprim Other reaction(s): Nausea Bactrim [Sulfamethoxazole-Trimethoprim] nausea Penicillins rash REVIEW OF SYSTEMS: CONSTITUTIONAL: No fevers, sweats, or chills FOCUSED PODIATRIC EXAM: Vascular: Pedal pulses palpable including dorsalis pedis and posterior tibial artery at 2/4 bilaterally. Capillary refill time is within normal limits to all toes. Mild chronic appearing edema with superficialvaricosities. No warmth. Pedal hair growth diminished. Neurologic: Sensation (light touch) intact to the bilateral lower extremities. Musculoskeletal: Hammertoes to the bilateral 2nd toe. Pain noted with palpation of callus sites. Dermatological: Hyperkeratotic skin to the bilateral second toes medial aspects as well as to the left plantar footsub met 1 and 5. DIAGNOSTIC STUDIES: None ASSESSMENT: ICD-10-CM 1. Callus of foot L84 2. Pain in both feet M79.671 M79.672 3. Hammer toes of both feet M20.41 M20.42 PLAN: I discussed the hammertoes. I provided her with crest pads to try as well as additional toe sleeves. I reviewed calluses may return with time. I encouraged use of vaseline to help soften. She may consider a 3 month return if needed. Procedure: After prepping the area with alcohol and allowing to dry, the hyperkeratotic lesions to both feet -bilateral 2nd toe and x 2 to the left plantar foot were sharply pared of all hyperkeratotic skin without incident. This was performed with a #15 blade. An electrical umbrella bur was used to reduce any remaining edges. Patient tolerated well and noted improvement following procedure. Rosalind Woodward DPM documented in this encounter Nursing Notes * Madalyn Phillips LPN - 04/26/2024 12:48 PM EDT Pt presents for new visit, c/o painful corns on bilateral feet and feels she is developing a wart on the bottom of one of her feet. Tried OTC products, states they do not stay in place well for her. Feels best in sneakers without socks. documented in this encounter Plan of Treatment Upcoming Encounters Date Type Department Care Team (Late st Contact Info) Description 05/23/2024 2:40 PM EST Office Visit [facility] [address] [place] [address] Sussy Zhu PA-C [address] [facility] [address] [place] [address] 05/31/2024 3:00 PM EST Office Visit Ophthalmology, [facility] [address] [place] [address] Mina Christiansen DO [address] [place] [address] 06/29/2024 12:00 PM EST Office Visit Gynecology/Obstetrics [facility] [address] [place] [address] Ny Mccracken CRNP [address] [place] [address] 07/26/2024 11:20 AM EST Office Visit [facility] [address] [place] [address] Sussy Zhu PA-C [address] [place] [address] 07/28/2024 2:40 PM EST Office Visit Podiatry [facility] [address] [place] [address] Rosalind Woodward DPM [address] [place] [address] [place] [address] Health Maintenance Due Date Last Done Comments [...] D LEVEL ONCE IN A LIFETIME-USE SMARTSET# 23672 Completed 03/15/2006 Pneumococcal Vaccine: 65+ Years Completed [...] this encounter Medical Devices Implanted Type Area Sample Room Supervisor Device Identifier Shelf Expiration Date Model / Serial / Lot Lens 23.5 M160l - [id number] - [id number] Implanted:Qty: 1 on 10/03/2015 by Arnol Auguste MD at OR [facility] Left: Eye [employer] : SURGICAL 11/25/2016 [id number] / [id number] / [id number] Lens Intraoc 23.0 - [id number] - [id number] Implanted:Qty: 1 on 06/04/2016 by Flakito Sorto MD at OR [facility] Right: Eye [employer] 11/25/2020 [id number] / [id number] / documented as of this encounter Visit Diagnoses Diagnosis Callus of foot- Primary Corns and callosities Pain in both feet Pain in limb Hammer toes of both feet documented in this encounter Advance Directives * [...] Agents on File Name Relationship Healthcare Agent [facility] Communication Juan Garcia Adult Child Health Care Agen t (per Health Care Power of Cutter Woodwind Reeds document) Care Teams Able Bodied Tankerman Relationship Specialty Start Date End Date Marko September PERI Sheldon [facility] [place] [address] PCP - General Physician Big Data Admin 01/10/24 documented as of this encounter
--- OUTSIDE RECORDS SUMMARY | 2024-05-28 04:18 | External Medical Summary | Summary of Care ---
Author Name Unknown Organization [facility] Address [address] [place] [address] Phone [phone] Care Team Providers Care Manager Graphic Name Role Phone Sussy Zhu PERI Primary Care Provider [phone] Encounter Details Date Type Department Care Team (Late st Contact Info) Description 05/01/2024 12:30 PM EST Scheduled Telephone Care Coordination and Integration [address], [place] [id number] Qian Handley, Community Health Polyethylene Combiner [address] [place] [address] Allergies Active Allergy Reactions Criticality Noted Date Comments Sulfamethoxazole-Trimethopri m 01/03/2020 nausea Penicillins 03/23/2000 rash Trimethoprim High 04/01/2021 Other reaction(s): Nausea documented as of this encounter (statuses as of 05/01/2024) Medications Medication Sig Dispensed Refills Start Date [...] as of this encounter (statuses as of 05/01/2024) Active Problems Problem Noted Date Diagnosed Date Bronchospasm, exercise-induced 11/17/2023 Spinal enthesopathy, cervical region 07/14/2023 Bilateral nonexudative age-related macular degen eration 05/19/2023 Degenerative disc disease, cervical 09/09/2022 Hyperlipidemia 09/09/2022 History of 2019 novel coronavirus disease (COVID -19) 06/10/2022 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 Increased risk for Familial hypercholesterolemia (FH). Please [...] as of this encounter (statuses as of 05/01/2024) Resolved Problems Problem Noted Date Diagnosed Date [...] as of this encounter (statuses as of 05/01/2024) Immunizations Name Administration Dates Next Due COVID-19 [...] Description 05/23/2024 2:40 PM EST Office Visit [facility] [address] [place] [address] Sussy Zhu PA-C [address] [facility] [place] [address] 05/31/2024 3:00 PM EST Office Visit Ophthalmology, [facility] [address] [place] [address] Mina Christiansen DO [address] [place] [address] 06/29/2024 12:00 PM EST Office Visit Gynecology/Obstetrics [facility] [address] [place] [address] Ny Mccracken CRNP [address] [place] [address] 07/26/2024 11:20 AM EST Office Visit [facility] [address] [place] [address] Sussy Zhu PA-C [address] [facility] [place] [address] 07/28/2024 2:40 PM EST [facility] [place] [address] Rosalind Woodward, CHANDLER [address] [facility] [place] [address] Health Maintenance Due Date Last Done Comments [...] D LEVEL ONCE IN A LIFETIME-USE SMARTSET# [id number] Completed 03/15/2006 Pneumococcal Vaccine: 65+ Years Completed [...] this encounter Medical Devices Implanted Type Area Employment Officer Device Identifier Shelf Expiration Date Model / Serial / Lot Lens 23.5 M160l - [id number] - [id number] Implanted:Qty: 1 on 10/03/2015 by Arnol Auguste MD at [facility] Left: Eye [employer] : SURGICAL 11/25/2016 [id number] / [id number] / [id number] Lens Intraoc 23.0 - [id number] - [id number] Implanted:Qty: 1 on 06/04/2016 by Flakito Sorto MD at [facility] Right: Eye [employer] 11/25/2020 [id number] / [id number] / documented as of this encounter Advance [...] Agents on File Name Relationship Healthcare Agent [facility] p Communication Juan Garcia Adult Child Health Care Agen t (per Health Care Power of Truant Officer document) Care Teams Manager Graphic Relationship Specialty Start Date End Date Sussy Zhu PA-C [address] [place] [address] PCP - General Physician Polyethylene Combiner 01/10/24 documented as of this encounter
--- OUTSIDE RECORDS SUMMARY | 2024-05-28 04:18 | External Medical Summary | Summary of Care ---
Author Name Unknown Organization [facility] Address [address] [place] [address] Phone [phone] Care Team Providers Care Pediatric Physical Therapist Name Role Phone Sussy Zhu PERI Primary Care Provider [phone] Encounter Details Date Type Department Care Team (Late st Contact Info) Description 05/08/2024 11:00 AM EST Scheduled Telephone Care Coordination and Integration [address] [place] [address] Qian Handley, Community Health Administrative Resources Associate [address] [place] [address] Allergies Active Allergy Reactions Criticality Noted Date Comments Sulfamethoxazole-Trimethopri m 01/03/2020 nausea Penicillins 03/23/2000 rash Trimethoprim High 04/01/2021 Other reaction(s): Nausea documented as of this encounter (statuses as of 05/08/2024) Medications ASPIRIN 81 MG PO TABS one [...] as of this encounter (statuses as of 05/08/2024) Active Problems Problem Noted Date Diagnosed Date Bronchospasm, exercise-induced 11/17/2023 Spinal enthesopathy, cervical region 07/14/2023 Bilateral nonexudative age-related macular degen eration 05/19/2023 Degenerative disc disease, cervical 09/09/2022 Hyperlipidemia 09/09/2022 History of 2019 novel coronavirus disease (COVID -19) 06/10/2022 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 Increased risk for Familial hypercholesterolemia (FH). Please [...] as of this encounter (statuses as of 05/08/2024) Resolved Problems Problem Noted Date Diagnosed Date [...] as of this encounter (statuses as of 05/08/2024) Immunizations Name Administration Dates Next Due COVID-19 mRNA, LNP-s, No Pre serve, 2-Dose Series ([employer]) 10/01/2021,04/07/2021,09/14/2020,08/24 COVID-19, LNP-s, No Preserve , Yimi-sucrose, [...] No 12/15/2023 Does the household have a [facility] source of income? (Household - for ages [...] 05/23/2024 2:40 PM EST Office Visit [facility] [address] [place] [address] Sussy Zhu PA-C [address] [facility] [place] [address] 05/31/2024 3:00 PM EST Office Visit Ophthalmology, [facility] [address] [place] [address] Mina Christiansen DO [address] [place] [address] 06/29/2024 12:00 PM EST Office Visit Gynecology/Obstetrics [facility] [address] [place] [address] Ny Mccracken CRNP [address] [place] [address] 07/26/2024 11:20 AM EST Office Visit [facility] [address] [place] [address] Sussy Zhu PA-C [address] [place] [address] 07/28/2024 2:40 PM EST [facility] [place] [address] [place] [address] Rosalind Woodward, DPNedra [address] [facility] [place] [address] Health Maintenance Due Date Last Done Comments [...] D LEVEL ONCE IN A LIFETIME-USE SMARTSET# 83058 Completed 03/15/2006 Pneumococcal Vaccine: 65+ Years Completed [...] this encounter Medical Devices Implanted Type Area Food Service Specialist Device Identifier Shelf Expiration Date Model / Serial / Lot Lens 23.5 M160l - [id number] - [id number] Implanted:Qty: 1 on 10/03/2015 by Arnol Auguste MD at OR [facility] Left: Eye [employer] : SURGICAL 11/25/2016 [id number]-50.5 / [id number] / [id number] Lens Intraoc 23.0 - [id number] - [id number] Implanted:Qty: 1 on 06/04/2016 by Flakito Sorto MD at OR [facility] Right: Eye [employer] 11/25/2020 [id number] / [id number] / documented as of this encounter Advance [...] Agen t (per Health Care Power of Manual Arts Therapy Teacher document) Care Teams Pediatric Physical Therapist Relationship Specialty Start Date End Date Marko Sussy PERI Sheldon [address] [place] [address] PCP - General Physician Administrative Resources Associate 01/10/24 documented as of this encounter
[2024-05-28] MEDS: ONDANSETRON INJ 2 MG/ML 2 ML VIAL IV STA (04:44)
[2024-05-28] MEDS: MoRPHine SULFATE 2 MG/ML CARP IV PRN ×2 (04:44→10:27)
--- NOTE | 2024-05-28 04:53 | Emergency Department Note ---
History of Present Illness General Chief complaint: Hip Pain Stated complaint: Fall, Hip Pain Time Seen by Provider: 05/28/24 04:15 History of Present Illness Maximum Pain Intensity: 10 This is an 83 year old female presenting to the emergency department via EMS after falling at home. The patient woke up to use the bathroom, fell backwards, and landed primarily onto her left hip. She was not able to stand or walk after the injury. She does have skin tear to the left wrist which is painful as well. She did not strike her head or lose consciousness. She does not report any lightheadedness, dizziness, chest pain, chest tightness, or shortness of breath before or after the event. Patient did have a small amount of fentanyl in the ambulance prior to arrival. She rates her current discomfort a 2/10. Home Medications Medication Instructions Recorded Confirmed Type albuterol sulfate 90 mcg/actuation 2 puff inhalation QID PRN 06/27/18 05/28/24 History aerosol inhaler (ProAir HFA) Shortness Of Breath vitamins A,C,Q-lmqf-alkrbm 2,148 1 tab PO BID 06/27/18 05/28/24 History mcg-113 mg-45 mg-17.4 mg tablet (PreserVision AREDS) cholecalciferol (vitamin D3) 25 25 mcg PO QAM 04/01/21 05/28/24 History mcg (1,000 unit) capsule (Vitamin D3) faricimab-svoa 6 mg/0.05 mL 6 mg intravitreal UD 10/03/23 05/28/24 History intravitreal solution (Vabysmo) metoprolol succinate 25 mg 25 mg PO BID #60 tabs 11/13/23 05/28/24 Rx tablet,extended release 24 hr d-mannose 500 mg capsule 500 mg PO BID 12/12/23 05/28/24 History rosuvastatin 40 mg tablet 40 mg PO QAM 12/12/23 05/28/24 History ondansetron HCl 4 mg tablet 4 mg PO Q6H PRN NAUSEA/VOMITING 12/14/23 05/28/24 Rx #10 tabs lisinopril 5 mg tablet 5 mg PO DAILY #30 tabs 04/18/24 05/28/24 Rx clopidogrel 75 mg tablet 75 mg PO DAILY 05/28/24 05/28/24 History Allergies Allergy/AdvReac Type Severity Reaction Status Date / Time sulfamethoxazole Allergy Severe Nausea Verified 04/17/24 21:44 [From Bactrim] trimethoprim [From Bactrim] Allergy Severe Nausea Verified 04/17/24 21:44 Penicillins Allergy Intermediate Rash Verified 04/17/24 21:44 nitrofurantoin AdvReac Mild Nausea Verified 04/17/24 21:44 [From Macrobid] Past Med/Surg History Problem List Hypotension Pre-op evaluation Asymptomatic hypertensive urgency Injury of wrist, left (Acute) Head injury (Acute) Fracture of left hip (Acute) Fall (Acute) Transient confusion Hypertension (Acute) Confusion (Acute) Carotid stenosis, left Stroke-like symptoms (Acute) Vaginal pessary in situ Acute metabolic encephalopathy Acute UTI (Acute) Encephalopathy (Acute) Brain TIA (Acute) COVID-19 (Acute) Hyperlipidemia (Chronic) Asthma (Chronic) Degenerative disc disease, cervical (Acute) Weakness (Acute) Surgical History No pertinent past surgical history Family History Mother Myocardial infarction Son Stroke Social History Smoking Status: Former smoker Tobacco Type: Cigarettes Second Hand Exposure: No; Do You Dip or Chew Tobacco: No; Hx Alcohol Use: No Hx Substance Use: No Preferred Language: Georgian Communication Ability: Effective Electric Tripper Machine Operator Required: No Beliefs That Will Affect Care: None marital status: Current Living Situation: Personal Care Facility Current Living Situation Comment: [facility] current occupational status: retired Other Information That Helps Us Care for You: No Feels Safe at Home: Yes Safety Concerns: Feels Safe At This Time Assistive Devices: Glasses Review of Systems A total of 10 systems reviewed and were otherwise negative Physical Exam Vital Signs Vital Signs - 24 hr 05/28/24 04:17 05/28/24 04:19 05/28/24 04:19 Temperature 36.6 C Temperature Source Oral Pulse Rate 107 H 106 H Pulse Rate from SpO2 Sensor Respiratory Rate 20 Respiratory Effort / Characteristics Non-Labored Spontaneous Respiratory Depth Normal Respiratory Pattern Regular Blood Pressure 157/121 H 157/121 H Blood Pressure Mean 133 134 Blood Pressure Position Sitting Pulse Oximetry 94 Oxygen Delivery Method Room Air Oxygen Flow Rate Sepsis Recent Fever Within 48 Hours No Sepsis New/Unexplained Change in Mental Status N/A Sepsis Action Taken by Nursing No Action Required 05/28/24 04:33 05/28/24 04:55 05/28/24 04:56 Temperature Temperature Source Pulse Rate 107 H 102 H 103 H Pulse Rate from SpO2 Sensor 112 H 102 H 102 H Respiratory Rate 20 18 18 Respiratory Effort / Characteristics Respiratory Depth Respiratory Pattern Blood Pressure 201/125 H Blood Pressure Mean 150 Blood Pressure Position Pulse Oximetry 95 83 L 95 Oxygen Delivery Method Room Air Room Air Nasal Cannula Oxygen Flow Rate 2 Sepsis Recent Fever Within 48 Hours Sepsis New/Unexplained Change in Mental Status Sepsis Action Taken by Nursing 05/28/24 05:06 05/28/24 05:12 05/28/24 05:39 Temperature Temperature Source Pulse Rate 105 H 99 H 96 H Pulse Rate from SpO2 Sensor 105 H 99 H 95 H Respiratory Rate 24 18 24 Respiratory Effort / Characteristics Respiratory Depth Respiratory Pattern Blood Pressure 158/85 H 161/97 H Blood Pressure Mean 109 118 Blood Pressure Position Pulse Oximetry 99 100 100 Oxygen Delivery Method Nasal Cannula Nasal Cannula Nasal Cannula Oxygen Flow Rate 2 2 2 Sepsis Recent Fever Within 48 Hours Sepsis New/Unexplained Change in Mental Status Sepsis Action Taken by Nursing 05/28/24 05:46 05/28/24 05:48 Temperature Temperature Source Pulse Rate 96 H 101 H Pulse Rate from SpO2 Sensor 96 H 101 H Respiratory Rate 18 24 Respiratory Effort / Characteristics Respiratory Depth Respiratory Pattern Blood Pressure 167/97 H 167/91 H Blood Pressure Mean 120 116 Blood Pressure Position Pulse Oximetry 99 100 Oxygen Delivery Method Nasal Cannula Nasal Cannula Oxygen Flow Rate 2 2 Sepsis Recent Fever Within 48 Hours Sepsis New/Unexplained Change in Mental Status Sepsis Action Taken by Nursing VITALS: Vitals are noted on the nurse's note and reviewed by myself. Vital signs stable. GENERAL: Well-developed, well-nourished, white female, who is in no acute distress and resting comfortably. Patient is cooperative with the examination. HEAD: Normocephalic atraumatic. NECK: Supple without nuchal rigidity. No lymphadenopathy. No thyromegaly. Cervical spine is nontender. HEART: Regular rate and rhythm without murmurs gallops or rubs. LUNGS: Clear to auscultation bilaterally without wheezes, rales or rhonchi. No retractions or accessory muscle use. ABDOMEN: Positive normal bowel sounds x 4. Soft, nontender, without masses or organomegaly. No guarding or rebound tenderness. MUSCULOSKELETAL: Ecchymosis with edema noted to the left wrist. Small skin tear without active bleeding or laceration noted. This was cleansed and dressed by nursing. No distinct snuffbox tenderness to the left wrist. The left leg is shortened and rotated externally. Neurovascular status appears intact throughout. Significant tenderness noted throughout the left hip. NEURO: Patient was alert and oriented to person place and time. CN II through XII grossly intact. Course Administered Medications Acetaminophen (Acetaminophen 500 Mg Tab) 1,000 mg PO Q8H CLAUDETTE Stop: 06/27/24 19:14 Last Admin: 05/28/24 20:33 Dose: 1,000 mg Documented By: [id number] Cefazolin Sodium (Ancef 1000mg) 1,000 mg in 7.5 mls @ 2.5 mls/min IV Q8H CLAUDETTE; Protocol Stop: 05/29/24 07:17 Last Admin: 05/28/24 23:08 Dose: 2.5 mls/min Documented By: [id number] Parenteral Electrolytes (Plasma-Lyte A Ph 7.4) 1,000 mls @ 100 mls/hr IV .Q10H CLAUDETTE Stop: 05/29/24 20:59 Last Infusion: 05/29/24 02:57 Dose: 100 mls/hr Documented By: [id number] Infusion: 05/29/24 01:05 Dose: 0 mls/hr Documented By: [id number] Admin: 05/28/24 21:07 Dose: 100 mls/hr Documented By: [id number] Phenylephrine HCl (Phenylephrine/Nss) 25 mg in 250 mls @ 16.2 mls/hr IV .[id number] CLAUDETTE; Protocol Stop: 06/27/24 21:29 Last Titration: 05/29/24 01:36 Dose: 0.4 mcg/kg/min, 13 mls/hr Documented By: [id number] Co-signed By: TP Titration: 05/28/24 23:15 Dose: 0.6 mcg/kg/min, 19.4 mls/hr Documented By: [id number] Co-signed By: TP Titration: 05/28/24 21:45 Dose: 0.8 mcg/kg/min, 25.9 mls/hr Documented By: [id number] Co-signed By: ANNA Admin: 05/28/24 20:00 Dose: 1 mcg/kg/min, 32.4 mls/hr Documented By: [id number] Co-signed By: ANNA Lisinopril (Lisinopril 5 Mg Tab) 5 mg PO DAILY CLAUDETTE Stop: 06/27/24 08:59 Last Admin: 05/28/24 09:27 Dose: 5 mg Documented By: [email or web address] Metoprolol Succinate (Metoprolol Succ 25mg Ext Rel Tab) 25 mg PO BID CLAUDETTE Stop: 06/27/24 08:59 Last Admin: 05/28/24 09:27 Dose: 25 mg Documented By: ZBIGNIEW Miscellaneous (Icu Protocol For Hyperglycemia) 1 each N/A ACHS CLAUDETTE Stop: 05/30/24 20:59 Last Admin: 05/28/24 20:44 Dose: Not Given Documented By: [id number] Morphine Sulfate (Morphine Sulfate 2 Mg/Ml Carp) 2 mg IV Q3H PRN PRN Reason: Pain Stop: 06/11/24 05:59 Last Admin: 05/28/24 13:32 Dose: 2 mg Documented By: Admin: 05/28/24 10:27 Dose: 2 mg Documented By: ZBIGNIEW Multivitamins/Minerals (Cerovite Adv Formula Tab) 1 tab PO DAILY CLAUDETTE Stop: 06/27/24 08:59 Last Admin: 05/28/24 09:28 Dose: 1 tab Documented By: ZBIGNIEW Rosuvastatin Calcium (Rosuvastatin Calcium 20 Mg Tab) 40 mg PO QAM CLAUDETTE Stop: 06/27/24 08:59 Last Admin: 05/28/24 09:28 Dose: 40 mg Documented By: ZBIGNIEW Tramadol HCl (Tramadol Hcl 50 Mg Tablet) 25 - 50 mg PO Q4H PRN PRN Reason: Pain Stop: 06/27/24 05:59 Last Admin: 05/29/24 01:37 Dose: 50 mg Documented By: [id number] Vitamin D (Cholecalciferol 25 Mcg (1000 Units) Tab) 25 mcg PO QAM CLAUDETTE Stop: 06/27/24 08:59 Last Admin: 05/28/24 09:28 Dose: 25 mcg Documented By: ZBIGNIEW Discontinued Medications Ephedrine Sulfate (Ephedrine Sulfate 50 Mg/Ml Amp) 5 mg IV Q5M PRN PRN Reason: PACU Use Only-SBP<90 mmHg Stop: 05/28/24 23:29 Last Admin: 05/28/24 17:39 Dose: 5 mg Documented By: YVETTE Ephedrine Sulfate (Ephedrine Sulfate 50 Mg/Ml Amp) Confirm Administered Dose 50 mg .ROUTE .STK-MED ONE Stop: 05/28/24 17:38 Last Admin: 05/28/24 20:07 Dose: Not Given Documented By: [id number] Potassium Chloride/Sodium Chloride (Normal Saline W/20 Meq Kcl) 20 meq in 1,000 mls @ 50 mls/hr IV .Q20H ONE Stop: 05/29/24 01:50 Last Infusion: 05/28/24 21:05 Dose: Infused Documented By: [id number] Admin: 05/28/24 05:58 Dose: 50 mls/hr Documented By: [email or web address] Magnesium Sulfate/Dextrose (Magnesium Sulfate / D5w) 1 gm in 100 mls @ 50 mls/hr IV ONE ONE Stop: 05/28/24 09:35 Last Infusion: 05/28/24 10:19 Dose: Infused Documented By: Admin: 05/28/24 08:08 Dose: 50 mls/hr Documented By: ZBIGNIEW Cefazolin Sodium (Ancef 2000mg) 2,000 mg in 15 mls @ 3.75 mls/min IV PREOP ONE; Protocol Stop: 05/28/24 15:39 Last Admin: 05/28/24 15:45 Dose: 3.75 mls/min Documented By: [id number] Phenylephrine HCl (Phenylephrine/Nss) 25 mg in 250 mls @ 3.258 mls/hr IV .Q24H PRN; Protocol PRN Reason: SBP below 100mmHg Stop: 05/29/24 01:39 Last Titration: 05/28/24 21:30 Dose: 0 mcg/kg/min, 0 mls/hr Documented By: [id number] Co-signed By: TP Titration: 05/28/24 20:00 Dose: 1 mcg/kg/min, 32.6 mls/hr Documented By: [id number] Co-signed By: [email or web address] Admin: 05/28/24 19:04 Dose: 0.6 mcg/kg/min, 19.5 mls/hr Documented By: YVETTE Co-signed By: RENARD Titration: 05/28/24 19:04 Dose: Infused Documented By: YVETTE Co-signed By: RENARD Admin: 05/28/24 18:04 Dose: 0.1 mcg/kg/min, 3.3 mls/hr Documented By: YVETTE Co-signed By: RENARD Albumin Human (Albumin 5%) 250 mls @ 500 mls/hr IV ONE ONE Stop: 05/28/24 18:11 Last Infusion: 05/28/24 20:07 Dose: Infused Documented By: [id number] Admin: 05/28/24 17:57 Dose: 500 mls/hr Documented By: YVETTE Magnesium Sulfate/Dextrose (Magnesium Sulfate / D5w) 1 gm in 100 mls @ 50 mls/hr IV ONE ONE Stop: 05/28/24 22:35 Last Infusion: 05/28/24 22:53 Dose: Infused Documented By: [id number] Admin: 05/28/24 20:48 Dose: 50 mls/hr Documented By: [id number] Albumin Human (Albumin 5%) 250 mls @ 500 mls/hr IV ONE ONE Stop: 05/28/24 21:27 Last Infusion: 05/28/24 21:54 Dose: Infused Documented By: [id number] Admin: 05/28/24 21:10 Dose: 500 mls/hr Documented By: [id number] Metoprolol Tartrate (Metoprolol Tartrate 1 Mg/Ml Vial) 2.5 mg IV NOW STA Stop: 05/28/24 05:55 Last Admin: 05/28/24 06:02 Dose: 2.5 mg Documented By: BIBIANA Morphine Sulfate (Morphine Sulfate 2 Mg/Ml Carp) 2 mg IV Q1H PRN PRN Reason: Pain Stop: 06/11/24 04:17 Last Admin: 05/28/24 05:48 Dose: 2 mg Documented By: Admin: 05/28/24 04:44 Dose: 2 mg Documented By: BIBIANA Ondansetron HCl (Ondansetron Inj 2 Mg/Ml 2 Ml Vial) 4 mg IV NOW STA Stop: 05/28/24 04:19 Last Admin: 05/28/24 04:44 Dose: 4 mg Documented By: BIBIANA Medical Decision Making Differential Diagnosis Differential diagnosis includes, but is not limited to: Sprain, strain, fracture, dislocation, subluxation, contusion, and others Laboratory Data 05/28/24 22:23 05/28/24 19:51 Lab Results 05/28/24 05/28/24 Range/Units 04:35 04:39 WBC 11.55 H (4.8-10.8) K/ul RBC 4.11 L (4.20-5.40) M/uL Hgb 12.5 (12.0-16.0) g/dl Hct 37.6 (37.0-47.0) % MCV 91.5 (80.0-100.0) fL MCH 30.4 (25.0-34.0) pg MCHC 33.2 (32.0-36.0) g/dL RDW Std Deviation 50.7 H (36.4-46.3) fL RDW Coeff of Sherrill 15.0 H (11.5-14.5) % Plt Count 150 (130-400) K/uL MPV 9.9 (9.4-12.4) fL Immature Gran % (Auto) 0.8 % Neut % (Auto) 82.5 % Lymph % (Auto) 8.5 % [place] % (Auto) 7.2 % Eos % (Auto) 0.7 % Baso % (Auto) 0.3 % Neut # (Auto) 9.54 H (1.40-6.50) K/uL Lymph # (Auto) 0.98 L (1.20-3.40) K/uL [place] # (Auto) 0.83 H (0.11-0.59) K/uL Eos # (Auto) 0.08 (0.00-0.50) K/uL Baso # (Auto) 0.03 (0.00-0.20) K/uL Immature Gran # (Auto) 0.09 (0.01-0.20) K/uL PT 11.4 (9.0-12.0) Seconds INR 1.1 (0.9-1.1) APTT 25 (21-31) Seconds PTT Ratio 0.9 Sodium 136 (136-145) mmol/L Potassium 3.8 (3.5-5.1) mmol/L Chloride 104 (98-107) mmol/L Carbon Dioxide 24 (21-32) mmol/L Anion Gap 8 (3-11) BUN 17 (6-23) mg/dl Creatinine 0.61 (0.6-1.2) mg/dl Est Cr Clr Drug Dosing 51.8 ml/min eGFR 88.10 BUN/Creatinine Ratio 27.9 H (10-20) Glucose 117 H (70-99(Fasting)) mg/dl Calcium 9.3 (8.6-10.3) mg/dl Magnesium 1.8 (1.7-2.4) mg/dl Total Bilirubin 0.6 (0.2-1.0) mg/dl AST 29 (13-39) U/L ALT 17 (7-52) U/L Alkaline Phosphatase 59 (34-104) U/L Troponin I High Sens 9.5 (0-14) pg/ml Total Protein 7.0 (6.0-8.3) gm/dl Albumin 3.8 (3.4-5.0) gm/dl Globulin 3.2 (2.5-4.0) gm/dl Albumin/Globulin Ratio 1.2 (0.9-2) TSH 1.368 (0.300-4.500) uIu/ml Urine Color Yellow Urine Appearance Clear (Clear) Urine pH 6.0 (4.5-7.5) Ur Specific [place] 1.009 (1.000-1.030) Urine Protein Trace H (Negative) Urine Glucose (UA) Negative (Negative) Urine Ketones Negative (Negative) Urine Blood Negative (Negative) Urine Nitrite Negative (Negative) Urine Bilirubin Negative (Negative) Urine Urobilinogen Negative (Negative) Ur Leukocyte Esterase Negative (Negative) Urine WBC (Auto) 0-5 (0-5) /hpf Urine RBC (Auto) 0-2 (0-2) /hpf U Hyaline Cast (Auto) 3-5 H (0-2) /lpf U Epithel Cells (Auto) 0-2 (0-2) /hpf Urine Bacteria (Auto) None Seen (None Seen) MDM Narrative Physical exam and history were performed. Nursing notes, EMR, and Medication List were personally reviewed. No social concerns were identified as barriers to patients care. Patient appears to have fallen at home trying to go to the bathroom. She appears to have injured her left wrist and left hip. IV access was established and labs were obtained. Imaging studies were performed. Patient's blood work is as above and was reviewed. She does not have a significantly elevated white blood cell count, gross anemia, bandemia, or significant electrolyte imbalance. Transaminases are not diagnostic. INR is 1.2. BUN and creatinine are preserved. Glucose is 117. Troponin negative. CT scans of the head, neck, abdomen, and pelvis were performed and reviewed by myself and radiology. She does not have intracranial or cervical findings. She does have fracture to her left hip. This is also confirmed on x-rays. Chest x- ray and wrist x-ray were also reviewed by myself and radiology. She may have an ulnar styloid fracture, and possibly irregularity through her anatomic snuffbox. She was placed in a splint. Case was discussed with my attending. The patient does not appear well for discharge and escalation of care is felt to be necessary. Case was discussed with the on-call hospitalist team. Please see their dictation for further patient course, plan, and disposition. The chart was completed utilizing [employer]01 Speech Voice Recognition Software. Grammatical errors, random word insertions, pronoun errors, and incomplete sentences are an occasional consequence of this system due to software limitations, ambient noise, and hardware issues. Any formal questions or concerns about the content, text, or information contained within the body of this dictation should be directly addressed to the provider for clarification. Impression & Plan Fall, Fracture of left hip, Head injury, Injury of wrist, left Discharge Plan Visit Data Chief Complaint: Hip Pain Stated Complaint: Fall, Hip Pain ED Provider: Kelly Kulkarni ED Midlevel Provider: Favio Otoole Discharge Problem: Fall, Fracture of left hip, Head injury, Injury of wrist, left Patient Disposition: Admitted As Inpatient Discharge Instructions Interventions: ED Discharge Assessment Last Done: 05/28/24 15:14
[2024-05-28 05:00] LABS: Basophils # (auto) 0.03 K/uL (0.00-0.20); Basophils % (auto) 0.3 %; Eosinophils # (auto) 0.08 K/uL (0.00-0.50); Eosinophils % (auto) 0.7 %; Hematocrit (blood only) 37.6 % (37.0-47.0); Hemoglobin 12.5 g/dl (12.0-16.0); Immature Granulocytes # (auto) 0.09 K/uL (0.01-0.20); Immature Granulocytes % (auto) 0.8 %; Lymphocytes # (auto) 0.98 K/uL (1.20-3.40); Lymphocytes % (auto) 8.5 %; Mean Corpuscular Hemoglobin 30.4 pg (25.0-34.0); Mean Corpuscular Hgb Conc 33.2 g/dL (32.0-36.0); Mean Corpuscular Volume 91.5 fL (80.0-100.0); Mean Platelet Volume 9.9 fL (9.4-12.4); Monocytes # (auto) 0.83 K/uL (0.11-0.59); Monocytes % (auto) 7.2 %; Neutrophils # (auto) 9.54 K/uL (1.40-6.50); Neutrophils % (auto) 82.5 %; Platelet Count 150 K/uL (130-400); RDW Standard Deviation 50.7 fL (36.4-46.3); Red Blood Count 4.11 M/uL (4.20-5.40); White Blood Count 11.55 K/ul (4.8-10.8)
[2024-05-28 05:08] LABS: Appearance Urine Clear (Clear); Bacteria Urine Automated None Seen (None Seen); Bilirubin Urine Negative (Negative); Blood Urine Negative (Negative); Color Urine Yellow; Epithelial Cell Urine Auto 0-2 /hpf (0-2); Glucose Urine UA Negative (Negative); Ketones Urine Negative (Negative); Leukocyte Esterase Urine Negative (Negative); Nitrite Urine Negative (Negative); Protein Urine Trace (Negative); RBC Urine Automated 0-2 /hpf (0-2); Specific Gravity Urine 1.009 (1.000-1.030); Urobilinogen Urine Negative (Negative); WBC Urine Automated 0-5 /hpf (0-5)
[2024-05-28 05:15] LABS: Albumin Globulin Ratio 1.2 (0.9-2); Albumin Level 3.8 gm/dl (3.4-5.0); BUN Creatinine Ratio 27.9 (10-20); Bilirubin,Total 0.6 mg/dl (0.2-1.0); Calcium 9.3 mg/dl (8.6-10.3); Creatinine Clr Calc Pharmacy 51.8 ml/min; Globulin 3.2 gm/dl (2.5-4.0); Magnesium 1.8 mg/dl (1.7-2.4); Potassium 3.8 mmol/L (3.5-5.1)
[2024-05-28 05:22] LABS: Troponin I High Sensitivity 9.5 pg/ml (0-14)
--- NOTE | 2024-05-28 05:27 | CT Scan Report ---
EXAM: CT head/brain wo con CLINICAL HISTORY: fall , left hip pain , eval for trauma TECHNIQUE: Axial non-contrast CT scan of the brain was performed from the skull base to the high parietal region. One of the following dose reduction techniques were utilized for this exam: Automated exposure control, adjustment of the mA and/or kV according to patient size, use of iterative reconstruction. COMPARISON: CT brain dated 04/18/2024. FINDINGS: Brain Parenchyma: There are diffuse ill-defined iso-to hypodense areas noted in the subcortical white matter bilaterally, suggestive of microvascular ischemic changes and old lacunar infarcts. Normal attenuation of the cerebellum, and brainstem. No evidence of hemorrhage, or mass effect. Ventricular System: The ventricular system, cortical sulci and basal cisterns are prominent consistent with senile changes. Subarachnoid Spaces: No evidence of subarachnoid hemorrhage or extra-axial fluid collections. Sinuses: Clear paranasal sinuses. No evidence of sinusitis or mucosal thickening. Mastoid Air Cells: Clear mastoid air cells. No evidence of mastoiditis. Skull and Meninges: Normal skull morphology. IMPRESSION: 1. No acute cerebral abnormality. 2. The above-mentioned findings are suggestive of microvascular ischemic changes and senile changes. 3. Unchanged study. Electronically signed by Audra Warner 05-28-2024 05:26 AM
[2024-05-28 05:29] LABS: INR 1.1 (0.9-1.1); Partial Thromboplastin Ratio 0.9; Partial Thromboplastin Time 25 Seconds (21-31); Prothrombin Time 11.4 Seconds (9.0-12.0)
--- NOTE | 2024-05-28 05:31 | Emergency Department Note ---
ED Visit Note I was consulted by the Advanced Practice Provider. I personally made/approved the management plan and take responsibility for the patient management. I performed a substantive portion of the visit. This includes the aspects of: Personally seeing the patient -MDM -I independently interpreted the following studies: Chest x-ray, left hip x- ray, left wrist x-ray. patient has an intertrochanteric fracture to the left hip. .
--- NOTE | 2024-05-28 05:56 | History & Physical Report ---
Date of Service May 28, 2024 Assessment & Plan (1) Asymptomatic hypertensive urgency: Plan: Hypertensive urgency secondary to traumatic left hip fracture, possible left wrist fracture secondary to mechanical fall Transient A-fib secondary to above below Hypoxemic respiratory failure following narcotic administration at the ER TIA on Plavix for stroke prophylaxis valvular heart disease (moderate MR, mild TR) PVD hyperlipidemia, on statin Rx prediabetes, hemoglobin A1c of 6 from 2 months ago past tobacco abuse Medical telemetry IV Lopressor 1 dose now, facilitate home BP meds and titrate as needed TTE, Cardiology consult re: paroxysmal A-fib, preop eval Supplemental O2 Baseline VBG Hold Plavix for now given scalp hematoma, contusions, and possible surgery. (Last dose was yesterday morning as per patient.) Orthopedics consult Re: Left hip fracture, possible left wrist fracture N.p.o. in anticipation of procedure. Await cardio input regarding preop eval with PAF DVT prophylaxis. SCDs re: scalp hematoma and multiple contusions Full code Patient son requesting updates from providers. Tanner Cristinatam, contact #[phone]. Text document was generated using [employer] voice recognition software. It may contain grammatical or spelling errors. Kindly contact undersigned for clarification of any documentation item in question. History of Present Illness Chief Complaint: Fall, left hip pain Primary Care Provider: Sussy Zhu PA-C History obtained from patient, family, and records. Medical history significant for TIA, PVD, valvular heart disease, moderate MR, hypertension, hyperlipidemia, migraine, recurrent UTIs, prediabetes, past tobacco abuse. Recent confinement last March 2024 for transient confusion in the setting of sleep deprivation. Patient woke up this morning to go to the bathroom. She found herself falling backwards and subsequently hitting her head without LOC. Achy left hip pain and bruising noted on the left hand and shoulder. Denies chest pain, SOB, syncope. Patient called son who later called EMS to patient's home. Son found left leg to be externally rotated upon arrival. Transient A-fib upon arrival at the ER as per RN. Highest SBP of 200s, transient O2 sats of 80s documented at the ER. 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 Allergies Allergy/AdvReac Type Severity Reaction Status Date / Time sulfamethoxazole Allergy Severe Nausea Verified 04/17/24 21:44 [From Bactrim] trimethoprim [From Bactrim] Allergy Severe Nausea Verified 04/17/24 21:44 Penicillins Allergy Intermediate Rash Verified 04/17/24 21:44 nitrofurantoin AdvReac Mild Nausea Verified 04/17/24 21:44 [From Macrobid] Home Medications Medication Instructions Recorded Confirmed Type albuterol sulfate 90 mcg/actuation 2 puff inhalation QID PRN 06/27/18 05/28/24 History aerosol inhaler (ProAir HFA) Shortness Of Breath vitamins A,C,F-ikgk-alveye 2,148 1 tab PO BID 06/27/18 05/28/24 History mcg-113 mg-45 mg-17.4 mg tablet (PreserVision AREDS) cholecalciferol (vitamin D3) 25 25 mcg PO QAM 04/01/21 05/28/24 History mcg (1,000 unit) capsule (Vitamin D3) faricimab-svoa 6 mg/0.05 mL 6 mg intravitreal UD 10/03/23 05/28/24 History intravitreal solution (Vabysmo) metoprolol succinate 25 mg 25 mg PO BID #60 tabs 11/13/23 05/28/24 Rx tablet,extended release 24 hr d-mannose 500 mg capsule 500 mg PO BID 12/12/23 05/28/24 History rosuvastatin 40 mg tablet 40 mg PO QAM 12/12/23 05/28/24 History ondansetron HCl 4 mg tablet 4 mg PO Q6H PRN NAUSEA/VOMITING 12/14/23 05/28/24 Rx #10 tabs lisinopril 5 mg tablet 5 mg PO DAILY #30 tabs 04/18/24 05/28/24 Rx clopidogrel 75 mg tablet 75 mg PO DAILY 05/28/24 05/28/24 History Past Med/Surg History Problem List (Updated 05/28/24 @ 07:17 by Bernard Caruso MD) Asymptomatic hypertensive urgency Injury of wrist, left (Acute) Head injury (Acute) Fracture of left hip (Acute) Fall (Acute) Transient confusion Hypertension (Acute) Confusion (Acute) Carotid stenosis, left Stroke-like symptoms (Acute) Vaginal pessary in situ Acute metabolic encephalopathy Acute UTI (Acute) Encephalopathy (Acute) Brain TIA (Acute) COVID-19 (Acute) Hyperlipidemia (Chronic) Asthma (Chronic) Degenerative disc disease, cervical (Acute) Weakness (Acute) Surgical History No pertinent past surgical history Family History Mother Myocardial infarction Son Stroke Social History Smoking Status: Former smoker Tobacco Type: Cigarettes Second Hand Exposure: No; Do You Dip or Chew Tobacco: No; Hx Alcohol Use: No Hx Substance Use: No Preferred Language: Scottish Communication Ability: Effective Data Processing Consultant Required: No Beliefs That Will Affect Care: None marital status: Current Living Situation: Alone and Personal Care Facility Current Living Situation Comment: [facility] current occupational status: retired Feels Safe at Home: Yes Assistive Devices: None Review of Systems Review of Systems: As per HPI, all other systems reviewed and negative Physical Exam Physical Exam: GENERAL: Comfortable, pleasant, no respiratory distress SKIN: Normal color, warm HEENT: [place] palpebral conjunctivae, no ptosis, moist buccal mucosa, nasal cannula in place NECK : Supple, no tenderness CHEST : Decreased breath sounds, no tenderness HEART : RRR, systolic murmur ABDOMEN: no distention, nontender EXTREMITIES : Left hip tenderness, contusion left shoulder, tender ecchymosis left hand dorsal NEUROLOGIC : Coherent, no facial asymmetry, gait and stance not assessed Results & Data Results & Data Vital Signs (Past 12 Hours) Vital Signs Temp Pulse Resp BP Pulse Ox O2 Del Method O2 Flow Rate 05/28/24 05:46 96 H 18 167/97 H 99 Nasal Cannula 2 05/28/24 05:39 96 H 24 161/97 H 100 Nasal Cannula 2 05/28/24 05:12 99 H 18 100 Nasal Cannula 2 05/28/24 05:06 105 H 24 158/85 H 99 Nasal Cannula 2 05/28/24 04:56 103 H 18 95 Nasal Cannula 2 05/28/24 04:55 102 H 18 83 L Room Air 05/28/24 04:33 107 H 20 201/125 H 95 Room Air 05/28/24 04:19 157/121 H 05/28/24 04:19 106 H 05/28/24 04:17 36.6 C 107 H 20 157/121 H 94 Room Air Laboratory Results Laboratory Results WBC 11.55 K/ul (4.8-10.8) H 05/28/24 04:39 RBC 4.11 M/uL (4.20-5.40) L 05/28/24 04:39 Hgb 12.5 g/dl (12.0-16.0) 05/28/24 04:39 Hct 37.6 % (37.0-47.0) 05/28/24 04:39 MCV 91.5 fL (80.0-100.0) 05/28/24 04:39 MCH 30.4 pg (25.0-34.0) 05/28/24 04:39 MCHC 33.2 g/dL (32.0-36.0) 05/28/24 04:39 RDW Std Deviation 50.7 fL (36.4-46.3) H 05/28/24 04:39 RDW Coeff of [place] 15.0 % (11.5-14.5) H 05/28/24 04:39 Plt Count 150 K/uL (130-400) 05/28/24 04:39 MPV 9.9 fL (9.4-12.4) 05/28/24 04:39 Immature Gran % (Auto) 0.8 % 05/28/24 04:39 Neut % (Auto) 82.5 % 05/28/24 04:39 Lymph % (Auto) 8.5 % 05/28/24 04:39 [place] % (Auto) 7.2 % 05/28/24 04:39 Eos % (Auto) 0.7 % 05/28/24 04:39 Baso % (Auto) 0.3 % 05/28/24 04:39 Neut # (Auto) 9.54 K/uL (1.40-6.50) H 05/28/24 04:39 Lymph # (Auto) 0.98 K/uL (1.20-3.40) L 05/28/24 04:39 [place] # (Auto) 0.83 K/uL (0.11-0.59) H 05/28/24 04:39 Eos # (Auto) 0.08 K/uL (0.00-0.50) 05/28/24 04:39 Baso # (Auto) 0.03 K/uL (0.00-0.20) 05/28/24 04:39 Immature Gran # (Auto) 0.09 K/uL (0.01-0.20) 05/28/24 04:39 PT 11.4 Seconds (9.0-12.0) 05/28/24 04:39 INR 1.1 (0.9-1.1) 05/28/24 04:39 APTT 25 Seconds (21-31) 05/28/24 04:39 PTT Ratio 0.9 05/28/24 04:39 Sodium 136 mmol/L (136-145) 05/28/24 04:39 Potassium 3.8 mmol/L (3.5-5.1) 05/28/24 04:39 Chloride 104 mmol/L (98-107) 05/28/24 04:39 Carbon Dioxide 24 mmol/L (21-32) 05/28/24 04:39 Anion Gap 8 (3-11) 05/28/24 04:39 BUN 17 mg/dl (6-23) 05/28/24 04:39 Creatinine 0.61 mg/dl (0.6-1.2) 05/28/24 04:39 Est Cr Clr Drug Dosing 51.8 ml/min 05/28/24 04:39 eGFR 88.10 05/28/24 04:39 BUN/Creatinine Ratio 27.9 (10-20) H 05/28/24 04:39 Glucose 117 mg/dl (70-99(Fasting)) H 05/28/24 04:39 Calcium 9.3 mg/dl (8.6-10.3) 05/28/24 04:39 Magnesium 1.8 mg/dl (1.7-2.4) 05/28/24 04:39 Total Bilirubin 0.6 mg/dl (0.2-1.0) 05/28/24 04:39 AST 29 U/L (13-39) 05/28/24 04:39 ALT 17 U/L (7-52) 05/28/24 04:39 Alkaline Phosphatase 59 U/L (34-104) 05/28/24 04:39 Troponin I High Sens 9.5 pg/ml (0-14) 05/28/24 04:39 Total Protein 7.0 gm/dl (6.0-8.3) 05/28/24 04:39 Albumin 3.8 gm/dl (3.4-5.0) 05/28/24 04:39 Globulin 3.2 gm/dl (2.5-4.0) 05/28/24 04:39 Albumin/Globulin Ratio 1.2 (0.9-2) 05/28/24 04:39 Urine Color Yellow 05/28/24 04:35 Urine Appearance Clear (Clear) 05/28/24 04:35 Urine pH 6.0 (4.5-7.5) 05/28/24 04:35 Ur Specific [place] 1.009 (1.000-1.030) 05/28/24 04:35 Urine Protein Trace (Negative) H 05/28/24 04:35 Urine Glucose (UA) Negative (Negative) 05/28/24 04:35 Urine Ketones Negative (Negative) 05/28/24 04:35 Urine Blood Negative (Negative) 05/28/24 04:35 Urine Nitrite Negative (Negative) 05/28/24 04:35 Urine Bilirubin Negative (Negative) 05/28/24 04:35 Urine Urobilinogen Negative (Negative) 05/28/24 04:35 Ur Leukocyte Esterase Negative (Negative) 05/28/24 04:35 Urine WBC (Auto) 0-5 /hpf (0-5) 05/28/24 04:35 Urine RBC (Auto) 0-2 /hpf (0-2) 05/28/24 04:35 U Hyaline Cast (Auto) 3-5 /lpf (0-2) H 05/28/24 04:35 U Epithel Cells (Auto) 0-2 /hpf (0-2) 05/28/24 04:35 Urine Bacteria (Auto) None Seen (None Seen) 05/28/24 04:35 Impressions Chest X-Ray 05/28/24 04:18 EXAM: XR chest 1V portable CLINICAL HISTORY: PT FELL BACK ON TO DRESSER, PT HIT HEAD, PAIN IN LT HIP/ LT WRIST KFK TECHNIQUE: An X-ray image of the chest is obtained in AP projection. COMPARISON: 04/17/2024 FINDINGS: Pulmonary Parenchyma: Both Lungs are Mildly hyperinflated. Coarse prominent bronchovascular markings and interstitial prominence seen in both lungs. No pneumothorax. No evidence of consolidation, collapse, or focal opacities. No pulmonary nodules are identified. No evidence of pleural effusion or pleural thickening. Heart and Mediastinum: Heart size and shape are normal. No mediastinal widening or masses. Both rajendra appear prominent. Bony Thorax: Old post-traumatic changes seen in left 3rd rib. Soft Tissues: Soft tissues overlying the chest wall are unremarkable. IMPRESSION: 1. Imaging findings are likely due to chronic obstructive pulmonary disease. 2. Old post-traumatic changes seen in left 3rd rib 3. No pneumothorax. 4. No significant interval changes. Electronically signed by Audra Warner 05-28-2024 05:[address] 05/28/24 04:18 EXAM: CT head/brain wo con CLINICAL HISTORY: fall , left hip pain , eval for trauma TECHNIQUE: Axial non-contrast CT scan of the brain was performed from the skull base to the high parietal region. One of the following dose reduction techniques were utilized for this exam: Automated exposure control, adjustment of the mA and/or kV according to patient size, use of iterative reconstruction. COMPARISON: CT brain dated 04/18/2024. FINDINGS: Brain Parenchyma: There are diffuse ill-defined iso-to hypodense areas noted in the subcortical white matter bilaterally, suggestive of microvascular ischemic changes and old lacunar infarcts. Normal attenuation of the cerebellum, and brainstem. No evidence of hemorrhage, or mass effect. Ventricular System: The ventricular system, cortical sulci and basal cisterns are prominent consistent with senile changes. Subarachnoid Spaces: No evidence of subarachnoid hemorrhage or extra-axial fluid collections. Sinuses: Clear paranasal sinuses. No evidence of sinusitis or mucosal thickening. Mastoid Air Cells: Clear mastoid air cells. No evidence of mastoiditis. Skull and Meninges: Normal skull morphology. IMPRESSION: 1. No acute cerebral abnormality. 2. The above-mentioned findings are suggestive of microvascular ischemic changes and senile changes. 3. Unchanged study. Electronically signed by Audra Warner 05-28-2024 05:26 AM Diagnostic Findings EKG as per my interpretation :Rate 110, A-fib, normal axis, no ischemia
[2024-05-28] MEDS: NSS + 20MEQ KCL 20 MEQ/1,000 ML BAG IV ONE (05:58)
[2024-05-28] MEDS ORDERED: PROMETHAZINE 6.25 MG/50.25 ML BAG IV PRN (06:00)
[2024-05-28] MEDS ORDERED: ACETAMINOPHEN 325 MG TAB PO PRN (06:00)
--- NOTE | 2024-05-28 06:01 | CT Scan Report ---
EXAM: CT abd pelvis wo con CLINICAL HISTORY: fall , left hip pain , eval for trauma TECHNIQUE: Non-contrast CT of the abdomen and pelvis was performed, with the following protocol: axial images, and reconstructed coronal and sagittal images. No intravenous contrast was administered. One of the following dose reduction techniques was utilized for this exam: Automated exposure control, adjustment of the mA and/or kV according to patient size, and use of iterative reconstruction. COMPARISON: NONE. FINDINGS: Abdomen: Liver: Normal in size, shape, and density. a 1.1cm simple cyst is noted in the 4th segment and another simple cyst 0.8cm in the right lobe. Gallbladder and Biliary System: The gallbladder is normal in size and shape. No wall thickening, pericholecystic fluid, or gallstones were identified. The intrahepatic biliary ducts and the proximal CBD are prominent Pancreas: Pancreatic head, body, and tail are visualized and appear normal in size and density. No pancreatic masses or calcifications were noted. Spleen: Normal in size, shape, and density. No splenic lesions or masses were identified. Kidneys and Adrenal Glands: Both kidneys are normal in size, shape, and position. Cortical thickness is within normal limits. No renal calculi or hydronephrosis. Adrenal glands are unremarkable. Pelvis: Urinary Bladder: Normal in contour and wall thickness. No intraluminal lesions. Uterus: Normal in size and contour. No masses or abnormal thickening. Ovaries: Not well visualized but no gross abnormalities noted. Vagina: prosthetic ring is noted in the vagina and adjacent to the cervix Peritoneal and Retroperitoneal Structures: No free fluid or abnormal fluid collections were identified within the abdomen or pelvis. No lymphadenopathy was noted. Bowel: A pouch-like structure measures about 7cm and contains an air-fluid level is noted adjacent to the 2nd duodenum segment suggesting a duodenal diverticula or other prominent bowel loop. Sigmoid and descending colon extensive diverticulosis without signs of perforation No evidence of bowel obstruction or wall thickening. Bones and Soft Tissues: A left displaced intertrochanteric fracture is noted. The femoral head is still in the acetabulum. Bone density is reduced Severe spondylotic changes in the lumbar spine. IMPRESSION: 1. A left displaced intertrochanteric fracture is noted. 2. Severe spondylotic changes in the lumbar spine. without acute fractures 3. A pouch-like structure measures about 7cm and contains an air-fluid level is noted adjacent to the 2nd duodenum segment suggesting a duodenal diverticula or other prominent bowel loop. 4. prosthetic ring is noted in the vagina and adjacent to the cervix 5. Sigmoid and descending colon extensive diverticulosis. Electronically signed by Audra Warner 05-28-2024 06:00 AM
[2024-05-28] MEDS: METOPROLOL TARTRATE 1 MG/ML VIAL IV STA (06:02)
--- NOTE | 2024-05-28 06:03 | XRay Report ---
EXAM: XR wrist LT min 3V routine CLINICAL HISTORY: PT FELL BACK ON TO DRESSER, PT HIT HEAD, PAIN IN LT HIP/ LT WRIST KFK TECHNIQUE: X-ray images of the Left wrist were obtained in anteroposterior (AP), lateral, and oblique projections. COMPARISON: No prior studies available for comparison. FINDINGS: Bone Structure: A thin sclerotic line is seen in the Scaphoid bone. A bony chip is seen at the ulnar styloid process raising the possibility of an avulsion fracture. Osteopenia. Joint Spaces: Moderate degenerative changes are seen at first carpometacarpal and scaphotrapezium joints as evident by osteophytes, and reduced joint space with sclerosis. Soft Tissues: Mild soft tissue swelling was seen around the left wrist. Additional Findings: None. IMPRESSION: 1. A thin sclerotic line is seen in the Scaphoid bone, Would recommend clinical correlation for focal tenderness and dedicated views. 2. A bony chip is seen at the ulnar styloid process raising the possibility of an avulsion fracture. 3. Moderate degenerative changes seen at first carpometacarpal and scaphotrapezium joint. Disclaimer: A subtle bone abnormality or fracture may not be readily apparent on X-rays, thus clinical correlation and further imaging including follow-up CT, MRI, or follow-up X-rays are advised as needed. [facility] ER was called at [phone] at 4:57 AM GUARD IMMIGRATION, 05/28/2024 and Crystal Nurse was informed regarding the presence of Important Medical Findings in the report. Electronically signed by Audra Warner 05-28-2024 06:03 AM
--- NOTE | 2024-05-28 06:06 | CT Scan Report ---
EXAM: CT cervical spine wo con CLINICAL HISTORY: fall , left hip pain , eval for trauma TECHNIQUE: CT scan of the cervical spine was performed without administration of contrast material. Contiguous axial images were obtained from the skull base to the upper thoracic spine. Coronal and sagittal reformatted images were also reviewed. One of the following dose-reduction techniques was utilized for this exam. Automated exposure control, adjustment of the mA and/or kV according to patient size, and use of iterative reconstruction. DLP: 1504.20 mGy-cm. COMPARISON: CT 10/23/2016. FINDINGS: Vertebrae: The vertebral bodies are normal in height and alignment. Mild retrolisthesis of C6 over C7 and mild anterolisthesis of C7 over T1 vertebra. No evidence of acute fracture or dislocation. No signs of lytic or sclerotic lesions. Normal configuration of the posterior elements. Multilevel anterior osteophytes were noted Intervertebral Discs: Multilevel intervertebral disc space narrowing is noted. Multilevel posterior marginal osteophytes were noted. Facet Joints: Multilevel facet joint arthrosis was noted. Spinal Canal: The spinal canal is normal in caliber. No evidence of spinal canal stenosis. The cervical spinal cord is normal in size and signal without evidence of compression or intrinsic abnormality. Neural Foramina: Multilevel moderate neural foramina stenosis is noted. Prevertebral Soft Tissues: The prevertebral soft tissues are normal in thickness without evidence of mass or abnormal fluid collection. Additional Findings: Bilateral extensive carotid bifurcation calcification is noted. IMPRESSION: 1. No interval changes in comparison with CT on 10/23/2016. 2. Moderate-severe spondylotic changes were noted. 3. No acute fracture or dislocation was noted. Electronically signed by Audra Warner 05-28-2024 06:06 AM
--- NOTE | 2024-05-28 06:07 | XRay Report ---
EXAM: XR hip LT 2V w pelvis CLINICAL HISTORY: PT FELL BACK ON TO DRESSER, PT HIT HEAD, PAIN IN LT HIP/ LT WRIST KFK TECHNIQUE: X-ray images of the left hip joints and pelvis were obtained in an anteroposterior (AP) and lateral projections. COMPARISON: No prior studies available for comparison. FINDINGS: Pelvic Bones: Generalized reduced bone density. Lucent line is seen in the neck and intertrochanteric region of the left femur likely fracture. Hip Joints: [place] line is seen in the neck and intertrochanteric region of the left femur likely fracture. Mild to moderate degenerative changes are seen in the left hip joint is evident by osteophytes and reduced left hip joint space. Symphysis Pubis: Symphysis pubis is normal and intact. No evidence of separation or widening. Soft Tissues: Soft tissue swelling is seen along the left hip Additional Findings: No other significant abnormalities noted. . IMPRESSION: 1. Fracture of the intertrochanteric and neck region of the left femur. 2. CT scan is advised for further evaluation. Disclaimer: A subtle bone abnormality or fracture may not be readily apparent on X-rays, thus clinical correlation and further imaging including follow-up CT, MRI, or follow-up X-rays are advised as needed. [facility] ER was called at [phone] at 4:57 AM FRONT OFFICE ATTENDANT, 05/28/2024 and Crystal Nurse was informed regarding the presence of Significant Medical Findings in the report. Electronically signed by Audra Warner 05-28-2024 06:06 AM
[2024-05-28] MEDS ORDERED: bisacodyL 10 MG SUPP PR PRN (06:46)
[2024-05-28] MEDS ORDERED: NALOXONE HCL 0.4 MG/1 ML VIAL/CARP IV PRN (06:46)
[2024-05-28] MEDS ORDERED: IPRATROPIUM BROMIDE NEB SOLN 0.02% 0.5MG/2.5ML VIAL INH PRN (06:55)
[2024-05-28] MEDS ORDERED: LEVALBUTEROL 1.25 MG/3 ML NEB NEB PRN (06:55)
[2024-05-28 07:17] LABS: Base Excess VBG 0.3 mEq/L; HCO3 VBG 27 mmol/L; Oxygen Saturation VBG 68.9 %; PCO2 VBG 48 mmHg (38-50); PO2 VBG 42 mmHg; pH VBG 7.35 (7.36-7.41)
[2024-05-28 07:21] LABS: Hematocrit (blood only) 35.9 % (37.0-47.0)
[2024-05-28] MEDS: MAGNESIUM SULFATE / D5W 1 GM/100 ML BAG IV ONE ×2 (08:08→20:48)
[2024-05-28 08:14] LABS: Thyroid Stimulating Hormone 1.368 uIu/ml (0.300-4.500)
[2024-05-28] MEDS: lisinopril 5 MG TAB PO SCH (09:27)
[2024-05-28] MEDS: METOPROLOL SUCC 25MG EXT REL TAB PO SCH (09:27)
[2024-05-28] MEDS: CEROVITE ADV FORMULA TAB PO SCH (09:28)
[2024-05-28] MEDS: CHOLECALCIFEROL 25 MCG (1000 UNITS) TAB PO SCH (09:28)
[2024-05-28] MEDS: ROSUVASTATIN CALCIUM 20 MG TAB PO SCH (09:28)
--- NOTE | 2024-05-28 10:45 | Communication Note ---
Date of Service: May 28, 2024 Patient was seen while still down in the emergency room. Son at bedside, patient was resting comfortably at the time of this exam. Per patient, pain was controlled at that time. Patient with atrial fibrillation, requiring cardiology preop clearance. Currently pending, patient to be seen today. Orthopedic surgeon later at bedside as well. For full plan of care, please see history and physical from the same date of service.
--- NOTE | 2024-05-28 12:15 | Electrocardiogram Report ---
Test Reason : Blood Pressure : */* mmHG Vent. Rate : 112 BPM Atrial Rate : * BPM P-R Int : * ms QRS Dur : 74 ms QT Int : 326 ms P-R-T Axes : * 54 74 degrees QTcB Int : 444 ms Atrial fibrillation with rapid ventricular response Abnormal ECG When compared with ECG of 18-Apr-2024 20:48, Atrial fibrillation has replaced Sinus rhythm Nonspecific T wave abnormality now evident in Lateral leads Confirmed by Arnol Johnson ([id number]) on 05/28/2024 12:15:16 PM Referred By: REFERRED SELF Confirmed By: Arnol Johnson
--- NOTE | 2024-05-28 13:32 | Orthopedic Consultation ---
Date of Consultation May 28, 2024 Assessment & Plan (1) Injury of wrist, left: (2) Hypertension: (3) Transient confusion: (4) Fall: (5) Fracture of left hip: (6) Asymptomatic hypertensive urgency: (7) Confusion: (8) Brain TIA: Plan This is an 83-year-old female who presents to the emergency department after a fall that occurred this morning while she was ambulating to the bathroom. During her fall, she sustained a closed, traumatic, displaced left intertrochant shavon hip fracture. I do long discussion with the patient and her family that joints are at bedside about the nature of this injury. We discussed in great detail the pathoanatomy, pathophysiology, treatment options. Given the fact that the patient regularly ambulates without the use of significant assistance, and she has been very independent up until this point, I do recommend operative intervention for her left hip. This would be a closed versus open reduction and internal fixation using a cephalomedullary nail. I discussed in great detail the risk of the surgery with the family and the patient. We discussed the risks include but are not limited to: , loss of limb, infection, hardware complication, hardware failure, hardware prominence, need for additional surgery, nonunion, malunion, blood loss requiring transfusion, iatrogenic injury to bone/nerve/tendon/vessel. I explained the risks of the surgery include sooner time to bearing weight and improved ability to ambulate. If the patient were to offer nonoperative management, I do think that she puts herself at a very high risk of complications from immobility including but not limited to sacral decubitus ulcers, pneumonia. After thorough discussion of the risks and benefits of both operative and nonoperative care, the patient, and her family through a shared decision-making model have opted for operative management. We will proceed to the OR pending cardiology clearance. If this does occur today, we will proceed to the operating room today. If not, we may need to wait until tomorrow. If the patient does have to wait till tomorrow, we will discuss the merits of a fascia iliac a single shot block with anesthesia. For the time being, she should remain nonweightbearing on her left lower extremity and should remain n.p.o. History of Present Illness Reason for Consultation: left hip pain Attending Physician: Karla Sarah MD History of Present Illness This is an 83-year-old female who ordinarily lives in a 55[place] community on her own. She woke up this morning to go to the bathroom and fell backwards as she got to the end of her bed. She had pain in her left hip as well as on her left shoulder and wrist. She does take Plavix at baseline. Her history is significant for TIA, peripheral vascular disease, heart disease, hypertension, hyperlipidemia, migraine, recurrent UTIs, prediabetes, past tobacco abuse Patient had hypertensive urgency with SBP in the 200s upon presentation. she also has had transient atrial fibrillation during her time in the ER. She was seen and admitted to the medicine service. they have requested a cardiology consult which is still pending. She denies CP, SOB at current. Allergies Allergy/AdvReac Type Severity Reaction Status Date / Time sulfamethoxazole Allergy Severe Nausea Verified 04/17/24 21:44 [From Bactrim] trimethoprim [From Bactrim] Allergy Severe Nausea Verified 04/17/24 21:44 Penicillins Allergy Intermediate Rash Verified 04/17/24 21:44 nitrofurantoin AdvReac Mild Nausea Verified 04/17/24 21:44 [From Macrobid] Home Medications Medication Instructions Recorded Confirmed Type albuterol sulfate 90 mcg/actuation 2 puff inhalation QID PRN 06/27/18 05/28/24 History aerosol inhaler (ProAir HFA) Shortness Of Breath vitamins A,C,J-nlzy-odxavz 2,148 1 tab PO BID 06/27/18 05/28/24 History mcg-113 mg-45 mg-17.4 mg tablet (PreserVision AREDS) cholecalciferol (vitamin D3) 25 25 mcg PO QAM 04/01/21 05/28/24 History mcg (1,000 unit) capsule (Vitamin D3) faricimab-svoa 6 mg/0.05 mL 6 mg intravitreal UD 10/03/23 05/28/24 History intravitreal solution (Vabysmo) metoprolol succinate 25 mg 25 mg PO BID #60 tabs 11/13/23 05/28/24 Rx tablet,extended release 24 hr d-mannose 500 mg capsule 500 mg PO BID 12/12/23 05/28/24 History rosuvastatin 40 mg tablet 40 mg PO QAM 12/12/23 05/28/24 History ondansetron HCl 4 mg tablet 4 mg PO Q6H PRN NAUSEA/VOMITING 12/14/23 05/28/24 Rx #10 tabs lisinopril 5 mg tablet 5 mg PO DAILY #30 tabs 04/18/24 05/28/24 Rx clopidogrel 75 mg tablet 75 mg PO DAILY 05/28/24 05/28/24 History Patient History Surgical History No pertinent past surgical history Family History Mother Myocardial infarction Son Stroke Social History Smoking Status: Former smoker Tobacco Type: Cigarettes Second Hand Exposure: No; Do You Dip or Chew Tobacco: No; Hx Alcohol Use: No Hx Substance Use: No Preferred Language: Dutch Communication Ability: Effective Ramp Agent Required: No Beliefs That Will Affect Care: None marital status: Current Living Situation: Alone and Personal Care Facility Current Living Situation Comment: [facility] current occupational status: retired Feels Safe at Home: Yes Assistive Devices: None Review of Systems Review of Systems: All systems reviewed & are unremarkable except as noted in HPI & below Physical Exam Physical Exam: MSK: LLE: no open wounds appreciated. limb shortenend and externally rotated. + log roll, + heel strike. +2 DP/PT pulses. SILT throughout. Results & Data Vital Signs (Past 12 Hours) Vital Signs Temp Pulse Pulse Resp BP BP Pulse Ox 05/28/24 11:29 95 H 18 140/79 99 05/28/24 11:29 95 H 18 99 05/28/24 09:08 99 H 20 142/74 H 98 05/28/24 09:08 99 H 20 98 05/28/24 08:35 95 H 05/28/24 07:45 94 H 16 100 05/28/24 07:10 100 05/28/24 07:08 98 H 16 152/73 H 100 05/28/24 06:42 94 H 16 99 05/28/24 06:21 84 16 154/87 H 100 05/28/24 06:15 148/80 H 05/28/24 06:15 92 H 148/80 H 05/28/24 06:07 157/80 H 05/28/24 06:03 98 H 21 156/86 H 99 05/28/24 06:02 98 H 156/86 H 05/28/24 06:02 98 H 16 156/86 H 100 05/28/24 06:00 95 H 18 117/76 99 05/28/24 05:48 101 H 24 167/91 H 100 05/28/24 05:46 96 H 18 167/97 H 99 05/28/24 05:39 96 H 24 161/97 H 100 05/28/24 05:12 99 H 18 100 05/28/24 05:06 105 H 24 158/85 H 99 05/28/24 04:56 103 H 18 95 05/28/24 04:55 102 H 18 83 L 05/28/24 04:33 107 H 20 201/125 H 95 05/28/24 04:19 157/121 H 05/28/24 04:19 106 H 05/28/24 04:17 36.6 C 107 H 20 157/121 H 94 O2 Del Method O2 Flow Rate 05/28/24 11:29 Nasal Cannula 2 05/28/24 11:29 Nasal Cannula 2 05/28/24 09:08 Nasal Cannula 2 05/28/24 09:08 Nasal Cannula 2 05/28/24 08:35 05/28/24 07:45 Nasal Cannula 2 05/28/24 07:10 Nasal Cannula 2 05/28/24 07:08 Room Air 05/28/24 06:42 Nasal Cannula 2 05/28/24 06:21 Nasal Cannula 2 05/28/24 06:15 05/28/24 06:15 05/28/24 06:07 05/28/24 06:03 Nasal Cannula 2 05/28/24 06:02 05/28/24 06:02 Nasal Cannula 2 05/28/24 06:00 Nasal Cannula 2 05/28/24 05:48 Nasal Cannula 2 05/28/24 05:46 Nasal Cannula 2 05/28/24 05:39 Nasal Cannula 2 05/28/24 05:12 Nasal Cannula 2 05/28/24 05:06 Nasal Cannula 2 05/28/24 04:56 Nasal Cannula 2 05/28/24 04:55 Room Air 05/28/24 04:33 Room Air 05/28/24 04:19 05/28/24 04:19 05/28/24 04:17 Room Air Diagnostic Findings x-rays of the left hip, pelvis including CT scan of the pelvis was personally interpreted and reviewed. This demonstrates a intertrochanteric hip fracture on the left. Wrist x-ray, left was personally interpreted and reviewed. There is concerning findings for a ulnar styloid fracture on the left.
--- NOTE | 2024-05-28 14:19 | Cardiology Consultation ---
Date of Consultation May 28, 2024 Assessment & Plan (1) Acute UTI: (2) Hypertension: (3) Fracture of left hip: (4) Pre-op evaluation: Plan - Heart rate blood pressure currently well-controlled -Initial ECG personally reviewed appears more consistent with sinus tachy and o ccasional atrial ectopy -echo completed today indicates normal ejection fraction of 65% with no wall motion abnormalities, mild LVH, mild aortic valve sclerosis, moderate MR with MAC, and mild TR unchanged from outpatient echo 2022 -Patient currently on antiplatelet therapy due to history of TIA/CVA symptoms, reasonable to hold clopidogrel from a cardiac perspective -Continue rosuvastatin and Toprol -Suspect she had higher heart rate secondary to uncontrolled pain related to her hip fracture -She is optimized and cleared to undergo orthopedic repair of her left hip fracture as planned no additional cardiac workup is necessary -continue to monitor on Telemetry, can consider additional workup as an outpatient if she continues have a concern of atrial dysrhythmia especially given her recent CVA symptoms - Case discussed with Dr. Fortune. Please see attestation for additional recommendations. MACIE Cedeño Department of Cardiology, [facility] This chart was completed in part utilizing Speech Voice Recognition Software. Grammatical errors, random word insertions, pronoun errors, and incomplete sentences are an occasional consequence of this system due to software limi tations, ambient noise, and hardware issues. Any formal questions or concerns about the content, text, or information contained within the body of this dictation should be directly addressed to the provider for clarification. History of Present Illness Reason for Consultation: pAF, Pre Op Clearance Requesting Physician: Hospitalist Attending Physician: Karla Sarah MD History of Present Illness 83-year-old female seen in consultation today in regard to PAF and preop cardiac clearance. Initially presented to the emergency room today after sustaining a fall. She woke up and when she got up to go to the bathroom she subsequently fell backwards hitting her head but denies loss of consciousness. Afterwards she had left hip pain and bruising on the left hand and shoulder. She reached out to her son for further assistance to when he arrived at the house called EMS for transport to the hospital. Leg was externally rotated on evaluation. She did have a recent inpatient stay in March 2024 for transient confusion secondary to sleep deprivation. She has a known past medical history of TIA, PVD, MR, TR, hypertension, hyperlipidemia, UTIs, prediabetes and history of tobacco use. Allergies Allergy/AdvReac Type Severity Reaction Status Date / Time sulfamethoxazole Allergy Severe Nausea Verified 04/17/24 21:44 [From Bactrim] trimethoprim [From Bactrim] Allergy Severe Nausea Verified 04/17/24 21:44 Penicillins Allergy Intermediate Rash Verified 04/17/24 21:44 nitrofurantoin AdvReac Mild Nausea Verified 04/17/24 21:44 [From Macrobid] Home Medications Medication Instructions Recorded Confirmed Type albuterol sulfate 90 mcg/actuation 2 puff inhalation QID PRN 06/27/18 05/28/24 History aerosol inhaler (ProAir HFA) Shortness Of Breath vitamins A,C,T-csah-vuprou 2,148 1 tab PO BID 06/27/18 05/28/24 History mcg-113 mg-45 mg-17.4 mg tablet (PreserVision AREDS) cholecalciferol (vitamin D3) 25 25 mcg PO QAM 04/01/21 05/28/24 History mcg (1,000 unit) capsule (Vitamin D3) faricimab-svoa 6 mg/0.05 mL 6 mg intravitreal UD 10/03/23 05/28/24 History intravitreal solution (Vabysmo) metoprolol succinate 25 mg 25 mg PO BID #60 tabs 11/13/23 05/28/24 Rx tablet,extended release 24 hr d-mannose 500 mg capsule 500 mg PO BID 12/12/23 05/28/24 History rosuvastatin 40 mg tablet 40 mg PO QAM 12/12/23 05/28/24 History ondansetron HCl 4 mg tablet 4 mg PO Q6H PRN NAUSEA/VOMITING 12/14/23 05/28/24 Rx #10 tabs lisinopril 5 mg tablet 5 mg PO DAILY #30 tabs 04/18/24 05/28/24 Rx clopidogrel 75 mg tablet 75 mg PO DAILY 05/28/24 05/28/24 History Patient History Surgical History No pertinent past surgical history Family History Mother Myocardial infarction Son Stroke Social History Smoking Status: Former smoker Tobacco Type: Cigarettes Second Hand Exposure: No; Do You Dip or Chew Tobacco: No; Hx Alcohol Use: No Hx Substance Use: No Preferred Language: Slovak Communication Ability: Effective Electric Meter Reader Required: No Beliefs That Will Affect Care: None marital status: Current Living Situation: Alone and Personal Care Facility Current Living Situation Comment: [facility] current occupational status: retired Feels Safe at Home: Yes Assistive Devices: None Review of Systems Review of Systems: All systems reviewed & are unremarkable except as noted in Subjective Physical Exam Constitutional: WD/WN, vitals as above well developed and well nourished Respiratory: normal respiratory effort, lungs clear to auscultation Cardiovascular: Rate/Rhythm: regular rate and regular rhythm Heart Sounds: normal S1, normal S2 and + murmur Vessels: no JVD and no carotid bruit Gastrointestinal (Abdomen): normal bowel sounds, soft, nontender, no hepatosplenomegaly Skin: no rashes, warm and dry Psychiatric: A+Ox3, euthymic affect Results & Data Vital Signs (Past 12 Hours) Vital Signs Temp Pulse Pulse Resp BP BP Pulse Ox 05/28/24 11:29 95 H 18 140/79 99 05/28/24 11:29 95 H 18 99 05/28/24 09:08 99 H 20 142/74 H 98 05/28/24 09:08 99 H 20 98 05/28/24 08:35 95 H 05/28/24 07:45 94 H 16 100 05/28/24 07:10 100 05/28/24 07:08 98 H 16 152/73 H 100 05/28/24 06:42 94 H 16 99 05/28/24 06:21 84 16 154/87 H 100 05/28/24 06:15 148/80 H 05/28/24 06:15 92 H 148/80 H 05/28/24 06:07 157/80 H 05/28/24 06:03 98 H 21 156/86 H 99 05/28/24 06:02 98 H 156/86 H 05/28/24 06:02 98 H 16 156/86 H 100 05/28/24 06:00 95 H 18 117/76 99 05/28/24 05:48 101 H 24 167/91 H 100 05/28/24 05:46 96 H 18 167/97 H 99 05/28/24 05:39 96 H 24 161/97 H 100 05/28/24 05:12 99 H 18 100 05/28/24 05:06 105 H 24 158/85 H 99 05/28/24 04:56 103 H 18 95 05/28/24 04:55 102 H 18 83 L 05/28/24 04:33 107 H 20 201/125 H 95 05/28/24 04:19 157/121 H 05/28/24 04:19 106 H 05/28/24 04:17 36.6 C 107 H 20 157/121 H 94 O2 Del Method O2 Flow Rate 05/28/24 11:29 Nasal Cannula 2 05/28/24 11:29 Nasal Cannula 2 05/28/24 09:08 Nasal Cannula 2 05/28/24 09:08 Nasal Cannula 2 05/28/24 08:35 05/28/24 07:45 Nasal Cannula 2 05/28/24 07:10 Nasal Cannula 2 05/28/24 07:08 Room Air 05/28/24 06:42 Nasal Cannula 2 05/28/24 06:21 Nasal Cannula 2 05/28/24 06:15 05/28/24 06:15 05/28/24 06:07 05/28/24 06:03 Nasal Cannula 2 05/28/24 06:02 05/28/24 06:02 Nasal Cannula 2 05/28/24 06:00 Nasal Cannula 2 05/28/24 05:48 Nasal Cannula 2 05/28/24 05:46 Nasal Cannula 2 05/28/24 05:39 Nasal Cannula 2 05/28/24 05:12 Nasal Cannula 2 05/28/24 05:06 Nasal Cannula 2 05/28/24 04:56 Nasal Cannula 2 05/28/24 04:55 Room Air 05/28/24 04:33 Room Air 05/28/24 04:19 05/28/24 04:19 05/28/24 04:17 Room Air Laboratory Results Cardiac Enzymes 05/28/24 Range/Units 04:39 AST 29 (13-39) U/L Troponin I High Sens 9.5 (0-14) pg/ml Coagulation 05/28/24 Range/Units 04:39 PT 11.4 (9.0-12.0) Seconds APTT 25 (21-31) Seconds CBC 05/28/24 05/28/24 Range/Units 04:39 07:04 WBC 11.55 H (4.8-10.8) K/ul RBC 4.11 L (4.20-5.40) M/uL Hgb 12.5 12.0 (12.0-16.0) g/dl Hct 37.6 35.9 L (37.0-47.0) % Plt Count 150 (130-400) K/uL Neut # (Auto) 9.54 H (1.40-6.50) K/uL Lymph # (Auto) 0.98 L (1.20-3.40) K/uL [place] # (Auto) 0.83 H (0.11-0.59) K/uL Eos # (Auto) 0.08 (0.00-0.50) K/uL Baso # (Auto) 0.03 (0.00-0.20) K/uL Comprehensive Metabolic Panel 05/28/24 Range/Units 04:39 Sodium 136 (136-145) mmol/L Potassium 3.8 (3.5-5.1) mmol/L Chloride 104 (98-107) mmol/L Carbon Dioxide 24 (21-32) mmol/L BUN 17 (6-23) mg/dl Creatinine 0.61 (0.6-1.2) mg/dl Glucose 117 H (70-99(Fasting)) mg/dl Calcium 9.3 (8.6-10.3) mg/dl AST 29 (13-39) U/L ALT 17 (7-52) U/L Alkaline Phosphatase 59 (34-104) U/L Total Protein 7.0 (6.0-8.3) gm/dl Albumin 3.8 (3.4-5.0) gm/dl Intake and Output 05/27/24 05/28/24 05/28/24 22:59 06:59 14:59 Intake Total 100 / 100 Balance 100 / 100 Intake: IV 100 / 100 Magnesium Sulfate / D5w 1 gm In 100 / 100 100 ml @ 50 mls/hr IV ONE ONE Rx#:[id number] Other: Weight 54.3 kg Weight Measurement Method Built in [facility] Diagnostic Findings Laboratory Results WBC 11.55 K/ul (4.8-10.8) H 05/28/24 04:39 RBC 4.11 M/uL (4.20-5.40) L 05/28/24 04:39 Hgb 12.0 g/dl (12.0-16.0) 05/28/24 07:04 Hct 35.9 % (37.0-47.0) L 05/28/24 07:04 MCV 91.5 fL (80.0-100.0) 05/28/24 04:39 MCH 30.4 pg (25.0-34.0) 05/28/24 04:39 MCHC 33.2 g/dL (32.0-36.0) 05/28/24 04:39 RDW Std Deviation 50.7 fL (36.4-46.3) H 05/28/24 04:39 RDW Coeff of Sherrill 15.0 % (11.5-14.5) H 05/28/24 04:39 Plt Count 150 K/uL (130-400) 05/28/24 04:39 MPV 9.9 fL (9.4-12.4) 05/28/24 04:39 Immature Gran % (Auto) 0.8 % 05/28/24 04:39 Neut % (Auto) 82.5 % 05/28/24 04:39 Lymph % (Auto) 8.5 % 05/28/24 04:39 [place] % (Auto) 7.2 % 05/28/24 04:39 Eos % (Auto) 0.7 % 05/28/24 04:39 Baso % (Auto) 0.3 % 05/28/24 04:39 Neut # (Auto) 9.54 K/uL (1.40-6.50) H 05/28/24 04:39 Lymph # (Auto) 0.98 K/uL (1.20-3.40) L 05/28/24 04:39 [place] # (Auto) 0.83 K/uL (0.11-0.59) H 05/28/24 04:39 Eos # (Auto) 0.08 K/uL (0.00-0.50) 05/28/24 04:39 Baso # (Auto) 0.03 K/uL (0.00-0.20) 05/28/24 04:39 Immature Gran # (Auto) 0.09 K/uL (0.01-0.20) 05/28/24 04:39 PT 11.4 Seconds (9.0-12.0) 05/28/24 04:39 INR 1.1 (0.9-1.1) 05/28/24 04:39 APTT 25 Seconds (21-31) 05/28/24 04:39 PTT Ratio 0.9 05/28/24 04:39 VBG pH 7.35 (7.36-7.41) L 05/28/24 07:08 VBG pCO2 48 mmHg (38-50) 05/28/24 07:08 VBG pO2 42 mmHg 05/28/24 07:08 VBG HCO3 27 mmol/L 05/28/24 07:08 VBG O2 Saturation 68.9 % 05/28/24 07:08 VBG Base Excess 0.3 mEq/L 05/28/24 07:08 Sodium 136 mmol/L (136-145) 05/28/24 04:39 Potassium 3.8 mmol/L (3.5-5.1) 05/28/24 04:39 Chloride 104 mmol/L (98-107) 05/28/24 04:39 Carbon Dioxide 24 mmol/L (21-32) 05/28/24 04:39 Anion Gap 8 (3-11) 05/28/24 04:39 BUN 17 mg/dl (6-23) 05/28/24 04:39 Creatinine 0.61 mg/dl (0.6-1.2) 05/28/24 04:39 Est Cr Clr Drug Dosing 51.8 ml/min 05/28/24 04:39 eGFR 88.10 05/28/24 04:39 BUN/Creatinine Ratio 27.9 (10-20) H 05/28/24 04:39 Glucose 117 mg/dl (70-99(Fasting)) H 05/28/24 04:39 Calcium 9.3 mg/dl (8.6-10.3) 05/28/24 04:39 Magnesium 1.8 mg/dl (1.7-2.4) 05/28/24 04:39 Total Bilirubin 0.6 mg/dl (0.2-1.0) 05/28/24 04:39 AST 29 U/L (13-39) 05/28/24 04:39 ALT 17 U/L (7-52) 05/28/24 04:39 Alkaline Phosphatase 59 U/L (34-104) 05/28/24 04:39 Troponin I High Sens 9.5 pg/ml (0-14) 05/28/24 04:39 Total Protein 7.0 gm/dl (6.0-8.3) 05/28/24 04:39 Albumin 3.8 gm/dl (3.4-5.0) 05/28/24 04:39 Globulin 3.2 gm/dl (2.5-4.0) 05/28/24 04:39 Albumin/Globulin Ratio 1.2 (0.9-2) 05/28/24 04:39 TSH 1.368 uIu/ml (0.300-4.500) 05/28/24 04:39 Urine Color Yellow 05/28/24 04:35 Urine Appearance Clear (Clear) 05/28/24 04:35 Urine pH 6.0 (4.5-7.5) 05/28/24 04:35 Ur Specific [place] 1.009 (1.000-1.030) 05/28/24 04:35 Urine Protein Trace (Negative) H 05/28/24 04:35 Urine Glucose (UA) Negative (Negative) 05/28/24 04:35 Urine Ketones Negative (Negative) 05/28/24 04:35 Urine Blood Negative (Negative) 05/28/24 04:35 Urine Nitrite Negative (Negative) 05/28/24 04:35 Urine Bilirubin Negative (Negative) 05/28/24 04:35 Urine Urobilinogen Negative (Negative) 05/28/24 04:35 Ur Leukocyte Esterase Negative (Negative) 05/28/24 04:35 Urine WBC (Auto) 0-5 /hpf (0-5) 05/28/24 04:35 Urine RBC (Auto) 0-2 /hpf (0-2) 05/28/24 04:35 U Hyaline Cast (Auto) 3-5 /lpf (0-2) H 05/28/24 04:35 U Epithel Cells (Auto) 0-2 /hpf (0-2) 05/28/24 04:35 Urine Bacteria (Auto) None Seen (None Seen) 05/28/24 04:35 Blood Type O Positive 05/28/24 07:04 Antibody Screen NEGATIVE 05/28/24 07:04 Impressions Abdomen/Pelvis CT 05/28/24 04:18 EXAM: CT abd pelvis wo con CLINICAL HISTORY: fall , left hip pain , eval for trauma TECHNIQUE: Non-contrast CT of the abdomen and pelvis was performed, with the following protocol: axial images, and reconstructed coronal and sagittal images. No intravenous contrast was administered. One of the following dose reduction techniques was utilized for this exam: Automated exposure control, adjustment of the mA and/or kV according to patient size, and use of iterative reconstruction. COMPARISON: NONE. FINDINGS: Abdomen: Liver: Normal in size, shape, and density. a 1.1cm simple cyst is noted in the 4th segment and another simple cyst 0.8cm in the right lobe. Gallbladder and Biliary System: The gallbladder is normal in size and shape. No wall thickening, pericholecystic fluid, or gallstones were identified. The intrahepatic biliary ducts and the proximal CBD are prominent Pancreas: Pancreatic head, body, and tail are visualized and appear normal in size and density. No pancreatic masses or calcifications were noted. Spleen: Normal in size, shape, and density. No splenic lesions or masses were identified. Kidneys and Adrenal Glands: Both kidneys are normal in size, shape, and position. Cortical thickness is within normal limits. No renal calculi or hydronephrosis. Adrenal glands are unremarkable. Pelvis: Urinary Bladder: Normal in contour and wall thickness. No intraluminal lesions. Uterus: Normal in size and contour. No masses or abnormal thickening. Ovaries: Not well visualized but no gross abnormalities noted. Vagina: prosthetic ring is noted in the vagina and adjacent to the cervix Peritoneal and Retroperitoneal Structures: No free fluid or abnormal fluid collections were identified within the abdomen or pelvis. No lymphadenopathy was noted. Bowel: A pouch-like structure measures about 7cm and contains an air-fluid level is noted adjacent to the 2nd duodenum segment suggesting a duodenal diverticula or other prominent bowel loop. Sigmoid and descending colon extensive diverticulosis without signs of perforation No evidence of bowel obstruction or wall thickening. Bones and Soft Tissues: A left displaced intertrochanteric fracture is noted. The femoral head is still in the acetabulum. Bone density is reduced Severe spondylotic changes in the lumbar spine. IMPRESSION: 1. A left displaced intertrochanteric fracture is noted. 2. Severe spondylotic changes in the lumbar spine. without acute fractures 3. A pouch-like structure measures about 7cm and contains an air-fluid level is noted adjacent to the 2nd duodenum segment suggesting a duodenal diverticula or other prominent bowel loop. 4. prosthetic ring is noted in the vagina and adjacent to the cervix 5. Sigmoid and descending colon extensive diverticulosis. Electronically signed by Audra Warner 05-28-2024 06:[address] 05/28/24 04:18 EXAM: CT cervical spine wo con CLINICAL HISTORY: fall , left hip pain , eval for trauma TECHNIQUE: CT scan of the cervical spine was performed without administration of contrast material. Contiguous axial images were obtained from the skull base to the upper thoracic spine. Coronal and sagittal reformatted images were also reviewed. One of the following dose-reduction techniques was utilized for this exam. Automated exposure control, adjustment of the mA and/or kV according to patient size, and use of iterative reconstruction. DLP: 1504.20 mGy-cm. COMPARISON: CT 10/23/2016. FINDINGS: Vertebrae: The vertebral bodies are normal in height and alignment. Mild retrolisthesis of C6 over C7 and mild anterolisthesis of C7 over T1 vertebra. No evidence of acute fracture or dislocation. No signs of lytic or sclerotic lesions. Normal configuration of the posterior elements. Multilevel anterior osteophytes were noted Intervertebral Discs: Multilevel intervertebral disc space narrowing is noted. Multilevel posterior marginal osteophytes were noted. Facet Joints: Multilevel facet joint arthrosis was noted. Spinal Canal: The spinal canal is normal in caliber. No evidence of spinal canal stenosis. The cervical spinal cord is normal in size and signal without evidence of compression or intrinsic abnormality. Neural Foramina: Multilevel moderate neural foramina stenosis is noted. Prevertebral Soft Tissues: The prevertebral soft tissues are normal in thickness without evidence of mass or abnormal fluid collection. Additional Findings: Bilateral extensive carotid bifurcation calcification is noted. IMPRESSION: 1. No interval changes in comparison with CT on 10/23/2016. 2. Moderate-severe spondylotic changes were noted. 3. No acute fracture or dislocation was noted. Electronically signed by Audra Warner 05-28-2024 06:06 AM Chest X-Ray 05/28/24 04:18 EXAM: XR chest 1V portable CLINICAL HISTORY: PT FELL BACK ON TO DRESSER, PT HIT HEAD, PAIN IN LT HIP/ LT WRIST KFK TECHNIQUE: An X-ray image of the chest is obtained in AP projection. COMPARISON: 04/17/2024 FINDINGS: Pulmonary Parenchyma: Both Lungs are Mildly hyperinflated. Coarse prominent bronchovascular markings and interstitial prominence seen in both lungs. No pneumothorax. No evidence of consolidation, collapse, or focal opacities. No pulmonary nodules are identified. No evidence of pleural effusion or pleural thickening. Heart and Mediastinum: Heart size and shape are normal. No mediastinal widening or masses. Both rajendra appear prominent. Bony Thorax: Old post-traumatic changes seen in left 3rd rib. Soft Tissues: Soft tissues overlying the chest wall are unremarkable. IMPRESSION: 1. Imaging findings are likely due to chronic obstructive pulmonary disease. 2. Old post-traumatic changes seen in left 3rd rib 3. No pneumothorax. 4. No significant interval changes. Electronically signed by Audra Warner 05-28-2024 05:[address] 05/28/24 04:18 EXAM: CT head/brain wo con CLINICAL HISTORY: fall , left hip pain , eval for trauma TECHNIQUE: Axial non-contrast CT scan of the brain was performed from the skull base to the high parietal region. One of the following dose reduction techniques were utilized for this exam: Automated exposure control, adjustment of the mA and/or kV according to patient size, use of iterative reconstruction. COMPARISON: CT brain dated 04/18/2024. FINDINGS: Brain Parenchyma: There are diffuse ill-defined iso-to hypodense areas noted in the subcortical white matter bilaterally, suggestive of microvascular ischemic changes and old lacunar infarcts. Normal attenuation of the cerebellum, and brainstem. No evidence of hemorrhage, or mass effect. Ventricular System: The ventricular system, cortical sulci and basal cisterns are prominent consistent with senile changes. Subarachnoid Spaces: No evidence of subarachnoid hemorrhage or extra-axial fluid collections. Sinuses: Clear paranasal sinuses. No evidence of sinusitis or mucosal thickening. Mastoid Air Cells: Clear mastoid air cells. No evidence of mastoiditis. Skull and Meninges: Normal skull morphology. IMPRESSION: 1. No acute cerebral abnormality. 2. The above-mentioned findings are suggestive of microvascular ischemic changes and senile changes. 3. Unchanged study. Electronically signed by Audra Warner 05-28-2024 05:26 AM Hip/Pelvis X-Ray 05/28/24 04:18 EXAM: XR hip LT 2V w pelvis CLINICAL HISTORY: PT FELL BACK ON TO DRESSER, PT HIT HEAD, PAIN IN LT HIP/ LT WRIST KFK TECHNIQUE: X-ray images of the left hip joints and pelvis were obtained in an anteroposterior (AP) and lateral projections. COMPARISON: No prior studies available for comparison. FINDINGS: Pelvic Bones: Generalized reduced bone density. Lucent line is seen in the neck and intertrochanteric region of the left femur likely fracture. Hip Joints: Lucent line is seen in the neck and intertrochanteric region of the left femur likely fracture. Mild to moderate degenerative changes are seen in the left hip joint is evident by osteophytes and reduced left hip joint space. Symphysis Pubis: Symphysis pubis is normal and intact. No evidence of separation or widening. Soft Tissues: Soft tissue swelling is seen along the left hip Additional Findings: No other significant abnormalities noted. . IMPRESSION: 1. Fracture of the intertrochanteric and neck region of the left femur. 2. CT scan is advised for further evaluation. Disclaimer: A subtle bone abnormality or fracture may not be readily apparent on X-rays, thus clinical correlation and further imaging including follow-up CT, MRI, or follow-up X-rays are advised as needed. [facility] ER was called at [phone] at 4:57 AM TEXTILE SUPERVISOR, 05/28/2024 and Crystal Nurse was informed regarding the presence of Significant Medical Findings in the report. Electronically signed by Audra Warner 05-28-2024 06:06 AM Wrist X-Ray 05/28/24 04:20 EXAM: XR wrist LT min 3V routine CLINICAL HISTORY: PT FELL BACK ON TO DRESSER, PT HIT HEAD, PAIN IN LT HIP/ LT WRIST KFK TECHNIQUE: X-ray images of the Left wrist were obtained in anteroposterior (AP), lateral, and oblique projections. COMPARISON: No prior studies available for comparison. FINDINGS: Bone Structure: A thin sclerotic line is seen in the Scaphoid bone. A bony chip is seen at the ulnar styloid process raising the possibility of an avulsion fracture. Osteopenia. Joint Spaces: Moderate degenerative changes are seen at first carpometacarpal and scaphotrapezium joints as evident by osteophytes, and reduced joint space with sclerosis. Soft Tissues: Mild soft tissue swelling was seen around the left wrist. Additional Findings: None. IMPRESSION: 1. A thin sclerotic line is seen in the Scaphoid bone, Would recommend clinical correlation for focal tenderness and dedicated views. 2. A bony chip is seen at the ulnar styloid process raising the possibility of an avulsion fracture. 3. Moderate degenerative changes seen at first carpometacarpal and scaphotrapezium joint. Disclaimer: A subtle bone abnormality or fracture may not be readily apparent on X-rays, thus clinical correlation and further imaging including follow-up CT, MRI, or follow-up X-rays are advised as needed. [facility] ER was called at [phone] at 4:57 AM TEXTILE SUPERVISOR, 05/28/2024 and Crystal Nurse was informed regarding the presence of Important Medical Findings in the report. Electronically signed by Audra Warner 05-28-2024 06:03 AM Medications Administered Current Inpatient Medications Acetaminophen (Acetaminophen 325 Mg Tab) 650 mg PO QID PRN PRN Reason: pain/fever Stop: 06/27/24 05:59 Bisacodyl (Bisacodyl 10 Mg Supp) 10 mg SC DAILY PRN PRN Reason: Constipation Stop: 06/27/24 06:45 Potassium Chloride/Sodium Chloride (Normal Saline W/20 Meq Kcl) 20 meq in 1,000 mls @ 50 mls/hr IV .Q20H ONE Stop: 05/29/24 01:50 Last Admin: 05/28/24 05:58 Dose: 50 mls/hr Promethazine HCl (Phenergan) 6.25 mg in 50.25 mls @ 201 mls/hr IV Q6H PRN PRN Reason: Nausea And Vomiting Stop: 06/27/24 05:59 Ipratropium [place] (Ipratropium [place] Neb Soln 0.02% 0.5mg/2.5ml Vial) 0.5 mg INH Q4H PRN PRN Reason: sob wheeze Stop: 06/27/24 06:54 Levalbuterol HCl (Levalbuterol 1.25 Mg/3 Ml Neb) 1.25 mg NEB Q4H PRN PRN Reason: sob wheeze Stop: 06/27/24 06:54 Lisinopril (Lisinopril 5 Mg Tab) 5 mg PO DAILY CLAUDETTE Stop: 06/27/24 08:59 Last Admin: 05/28/24 09:27 Dose: 5 mg Metoprolol Succinate (Metoprolol Succ 25mg Ext Rel Tab) 25 mg PO BID CLAUDETTE Stop: 06/27/24 08:59 Last Admin: 05/28/24 09:27 Dose: 25 mg Morphine Sulfate (Morphine Sulfate 2 Mg/Ml Carp) 2 mg IV Q3H PRN PRN Reason: Pain Stop: 06/11/24 05:59 Last Admin: 05/28/24 13:32 Dose: 2 mg Multivitamins/Minerals (Cerovite Adv Formula Tab) 1 tab PO DAILY CLAUDETTE Stop: 06/27/24 08:59 Last Admin: 05/28/24 09:28 Dose: 1 tab Naloxone HCl (Naloxone Hcl 0.4 Mg/1 Ml Vial/Carp) 0.1 mg IV UD PRN PRN Reason: Opiate Overdose Stop: 06/27/24 06:45 Rosuvastatin Calcium (Rosuvastatin Calcium 20 Mg Tab) 40 mg PO QAM [facility] Stop: 06/27/24 08:59 Last Admin: 05/28/24 09:28 Dose: 40 mg Tramadol HCl (Tramadol Hcl 50 Mg Tablet) 25 - 50 mg PO Q4H PRN PRN Reason: Pain Stop: 06/27/24 05:59 Vitamin D (Cholecalciferol 25 Mcg (1000 Units) Tab) 25 mcg PO QAM [facility] Stop: 06/27/24 08:59 Last Admin: 05/28/24 09:28 Dose: 25 mcg
[2024-05-28] MEDS ORDERED: PROPOFOL IV EMULSION 10 MG/ML 20 ML VIAL IV ONE (14:41)
[2024-05-28] MEDS ORDERED: ROCURONIUM BROMIDE 10 MG/ML 5 ML VIAL IV ONE (14:41)
[2024-05-28] MEDS ORDERED: fentaNYL citrate PF 100 MCG/2 ML VIAL ONE (14:41)
[2024-05-28] MEDS ORDERED: PHENYLEPHRINE HCL 10 MG/ML VIAL ONE ×2 (14:42→17:47)
[2024-05-28] MEDS ORDERED: ARTIFICIAL TEARS OP OINT 3.5 GM TUBE ONE (14:43)
--- NOTE | 2024-05-28 14:57 | Anesthesiology Consultation ---
Date of Service May 28, 2024 Assessment & Plan Chart Review Chart Review: Acceptable Risk for Surgery and Patient NOT seen in Pre Admission Testing Consults Requested none cardiology evaluated d/t n/o afib with updated echocardiogram on file. no significant changes since previous study. ASA [id number] Proposed Anesthesia Anesthesia Type: General History Surgery Operation Date: 05/28/24 12:00 Proposed Procedures p Intramedullary Michael Femur(Left) - Yuniel Johnson, Height/Weight Height: 5 ft 1 in Weight: 54.3 kg Allergies Allergy/AdvReac Type Severity Reaction Status Date / Time sulfamethoxazole Allergy Severe Nausea Verified 04/17/24 21:44 [From Bactrim] trimethoprim [From Bactrim] Allergy Severe Nausea Verified 04/17/24 21:44 Penicillins Allergy Intermediate Rash Verified 04/17/24 21:44 nitrofurantoin AdvReac Mild Nausea Verified 04/17/24 21:44 [From Macrobid] Medications Home Medications Medication Instructions Recorded Confirmed Last Taken albuterol sulfate 90 mcg/actuation 2 puff inhalation QID PRN 06/27/18 05/28/24 03/31/21 aerosol inhaler (ProAir HFA) Shortness Of Breath vitamins A,C,F-lnpm-uyepbo 2,148 1 tab PO BID 06/27/18 05/28/24 05/27/24 20:00 mcg-113 mg-45 mg-17.4 mg tablet (PreserVision AREDS) cholecalciferol (vitamin D3) 25 25 mcg PO QAM 04/01/21 05/28/24 05/27/24 08:00 mcg (1,000 unit) capsule (Vitamin D3) faricimab-svoa 6 mg/0.05 mL 6 mg intravitreal UD 10/03/23 05/28/24 04/26/24 intravitreal solution (Vabysmo) metoprolol succinate 25 mg 25 mg PO BID #60 tabs 11/13/23 05/28/24 05/27/24 20:00 tablet,extended release 24 hr d-mannose 500 mg capsule 500 mg PO BID 12/12/23 05/28/24 05/27/24 08:00 rosuvastatin 40 mg tablet 40 mg PO QAM 12/12/23 05/28/24 05/27/24 08:00 ondansetron HCl 4 mg tablet 4 mg PO Q6H PRN NAUSEA/VOMITING 12/14/23 05/28/24 Unknown #10 tabs lisinopril 5 mg tablet 5 mg PO DAILY #30 tabs 04/18/24 05/28/24 05/27/24 08:00 clopidogrel 75 mg tablet 75 mg PO DAILY 05/28/24 05/28/24 1 Day Ago ~05/27/24 Active Medications Generic Name Dose Route Start Last Admin Trade Name Freq PRN Reason Stop Dose Admin Potassium Chloride/Sodium Chloride 20 meq in 1,000 mls @ 50 mls/hr 05/28/24 05:51 05/28/24 05:58 Normal Saline W/20 Meq Kcl IV 05/29/24 01:50 50 mls/hr .Q20H ONE Administration Lisinopril 5 mg 05/28/24 09:00 05/28/24 09:27 Lisinopril 5 Mg Tab PO 06/27/24 08:59 5 mg DAILY CLAUDETTE Administration Metoprolol Succinate 25 mg 05/28/24 09:00 05/28/24 09:27 Metoprolol Succ 25mg Ext Rel Tab PO 06/27/24 08:59 25 mg BID CLAUDETTE Administration Morphine Sulfate 2 mg 05/28/24 06:00 05/28/24 13:32 Morphine Sulfate 2 Mg/Ml Carp IV 06/11/24 05:59 2 mg Q3H PRN Administration Pain Multivitamins/Minerals 1 tab 05/28/24 09:00 05/28/24 09:28 Cerovite Adv Formula Tab PO 06/27/24 08:59 1 tab DAILY CLAUDETTE Administration Rosuvastatin Calcium 40 mg 05/28/24 09:00 05/28/24 09:28 Rosuvastatin Calcium 20 Mg Tab PO 06/27/24 08:59 40 mg QAM CLAUDETTE Administration Vitamin D 25 mcg 05/28/24 09:00 05/28/24 09:28 Cholecalciferol 25 Mcg (1000 Units) Tab PO 06/27/24 08:59 25 mcg QAM CLAUDETTE Administration Past Family History Family History Mother Myocardial infarction Son Stroke Past Surgical History Surgical History No pertinent past surgical history Social History Smoking Status: Former smoker Do You Dip or Chew Tobacco: No Hx Alcohol Use: No alcohol intake frequency: holidays/special occasions only Hx Substance Use: No substance use type: does not use Physical Exam Vital Signs Last Vital Signs Temp 36.6 C 05/28/24 04:17 Pulse 95 H 05/28/24 11:29 Resp 18 05/28/24 11:29 BP 140/79 05/28/24 11:29 Pulse Ox 99 05/28/24 11:29 O2 Del Method Nasal Cannula 05/28/24 11:29 O2 Flow Rate 2 05/28/24 11:29 Testing Laboratory Results 05/28/24 07:04 05/28/24 04:39 PT 11.4 Seconds (9.0-12.0) 05/28/24 04:39 INR 1.1 (0.9-1.1) 05/28/24 04:39 APTT 25 Seconds (21-31) 05/28/24 04:39 Urine Color Yellow 05/28/24 04:35 Urine Appearance Clear (Clear) 05/28/24 04:35 Urine pH 6.0 (4.5-7.5) 05/28/24 04:35 Ur Specific [place] 1.009 (1.000-1.030) 05/28/24 04:35 Urine Protein Trace (Negative) H 05/28/24 04:35 Urine Glucose (UA) Negative (Negative) 05/28/24 04:35 Urine Ketones Negative (Negative) 05/28/24 04:35 Urine Nitrite Negative (Negative) 05/28/24 04:35 Ur Leukocyte Esterase Negative (Negative) 05/28/24 04:35 Urine WBC (Auto) 0-5 /hpf (0-5) 05/28/24 04:35 Urine RBC (Auto) 0-2 /hpf (0-2) 05/28/24 04:35 U Hyaline Cast (Auto) 3-5 /lpf (0-2) H 05/28/24 04:35 U Epithel Cells (Auto) 0-2 /hpf (0-2) 05/28/24 04:35 Urine Bacteria (Auto) None Seen (None Seen) 05/28/24 04:35 Blood Type O Positive 05/28/24 07:04 Antibody Screen NEGATIVE 05/28/24 07:04
--- NOTE | 2024-05-28 15:09 | XRay Report ---
EXAM: Radiographs of the Left Femur 2 Views INDICATION: Fracture. TECHNIQUE: Frontal and lateral views of the left femur. COMPARISON: No relevant prior studies available. FINDINGS: Bones/joints: There is a comminuted intertrochanteric fracture of the left femur with rotation and impaction. The femur is otherwise intact. T mild to moderate tricompartment spurring at the knee. The bones are demineralized. Soft tissues: No abnormality noted. No radiopaque foreign body noted. Other findings: Moderate to large amounts of stool in the rectal vault. IMPRESSION: 1. Acute comminuted intertrochanteric fracture. The femur is otherwise intact. 2. Moderate to large amounts of stool in the rectal vault. ACT 112: Negative or not required by law. Electronically signed by Hanny Montalvo 05-28-2024 3:07 PM
--- NOTE | 2024-05-28 15:23 | History & Physical Bridge Note ---
Date of Service May 28, 2024 History & Physical Bridge Note I have examined the patient, reviewed the History & Physical and in the interval since the performance of the History & Physical I have noted the following changes of clinical significance: This is an 83-year-old female who presents to the emergency department after a fall that occurred this morning while she was ambulating to the bathroom. During her fall, she sustained a closed, traumatic, displaced left hip fracture. This is a basicervical variant. I do long discussion with the patient and her family that joints are at bedside about the nature of this injury. We discussed in great detail the pathoanatomy, pathophysiology, treatment options. Given the fact that the patient regularly ambulates without the use of significant assistance, and she has been very independent up until this point, I do recommend operative intervention for her left hip. This would be a closed versus open reduction and internal fixation using a cephalomedullary nail. I discussed in great detail the risk of the surgery with the family and the patient. We discussed the risks include but are not limited to: , loss of limb, infection, hardware complication, hardware failure, hardware prominence, need for additional surgery, nonunion, malunion, blood loss requiring transfusion, iatrogenic injury to bone/nerve/tendon/vessel. I explained the risks of the surgery include sooner time to bearing weight and improved ability to ambulate. If the patient were to proceed with nonoperative management, I do think that she puts herself at a very high risk of complications from immobility including but not limited to sacral decubitus ulcers, pneumonia. After thorough discussion of the risks and benefits of both operative and nonoperative care, the patient, and her family through a shared decision-making model have opted for operative management. patient has been seen and cleared by the cardiology team. Will proceed to the OR
[2024-05-28] MEDS ORDERED: ONDANSETRON INJ 2 MG/ML 2 ML VIAL IV PRN (15:29)
[2024-05-28] MEDS ORDERED: fentaNYL citrate PF 100 MCG/2 ML VIAL IV PRN (15:29)
[2024-05-28] MEDS ORDERED: ATROPINE SULFATE 0.1 MG/ML 10ML SYR IV PRN (15:29)
[2024-05-28] MEDS: ceFAZolin 2000MG 2,000 MG/15 ML SYR IV ONE (15:45)
[2024-05-28] MEDS ORDERED: ceFAZolin 330 MG/ML 1 GM VIAL ONE ×2 (15:45)
--- NOTE | 2024-05-28 15:49 | Communication Note ---
Date of Service: May 28, 2024 A formal cardiology consultation placed for prior surgical evaluation; unfortunately I was delayed in getting to see the patient prior to luis miguel due to rounding at another hospital. However I reviewed the patient's chart in detail and her echocardiogram today personally interpreted by myself today. I believe her admission ECG is SR with APCs i would not declare her as AF; plus on her echo it looked to be SR and not AF. 83 y/o F with PMH recent TIA on plavix, HTN, HLD, Pre-diabetes, Mod MR and mild TR stable. Pt is at an acceptable moderate cardiovascular risk for her orthopedic surgery. No further in patient recommendations-would continue her out patient cardiac medications. Please re-consult formally post op if needed. I coordinated my recommendations with the hospitalist via [place] text.
[2024-05-28] MEDS ORDERED: EPINEPHrine INJ 1 MG/ML AMP ONE (16:41)
[2024-05-28] MEDS ORDERED: ePHEDrine sulfate 50 MG/ML AMP ONE (16:42)
[2024-05-28] MEDS ORDERED: SUGAMMADEX SODIUM 200 MG/2 ML VIAL IV ONE ×2 (16:54→17:22)
--- NOTE | 2024-05-28 17:13 | Post Operative Brief Note ---
Immediate Post Op Note Date of Surgery May 28, 2024 Pre & Post Diagnosis Operation Date: 05/28/24 12:00 Pre-Op Diagnosis: Closed, traumatic, displaced left intertrochanteric hip fracture. Post-Op Diagnosis: Closed, traumatic, displaced left intertrochanteric hip fracture. I identified the patient and participated in the time-out.: Yes Procedure Operation Date: 05/28/24 12:00 Actual Procedures p Closed reduction and cephalomedullary fixation left intertrochanteric hip fracture. Physician directed fluoroscopy less than 1 hour(Left) - Yuniel Johnson DO 1. Closed reduction and cephalomedullary nailing of left intertrochanteric hip fracture 2. Physician directed fluoroscopy less than 1 hour Surgeon Yuniel Johnson DO Flatware Maker Dougie Cancino PA-C Estimated Blood Loss 250 Findings Consistent with Post-Op Diagnosis Fluids see anesthesia record Drains Swan Catheter Anesthesia Type General Complications none immediately apparent Disposition Disposition: Recovery Room Overlapping Procedure I was present for: the critical portions of procedure. (the entire surgery)
[2024-05-28] MEDS ORDERED: ESMOLOL HCL INJ 10 MG/ML 10ML VIAL IV ONE (17:25)
[2024-05-28] MEDS: ePHEDrine sulfate 50 MG/ML AMP IV PRN (17:39)
[2024-05-28] MEDS ORDERED: ALBUMIN HUMAN 5% 12.5 GM/250 ML VIAL IV ONE (17:44)
[2024-05-28] MEDS ORDERED: VASOPRESSIN 20 UNIT/ML VIAL ONE (17:47)
[2024-05-28] MEDS: ALBUMIN 5% 250 ML IV ONE ×2 (17:57→21:10)
[2024-05-28] MEDS: PHENYLEPHRINE/NSS 25 MG/250 ML BAG IV PRN (18:04)
--- NOTE | 2024-05-28 18:37 | Anesthesiology Consultation ---
Date of Service May 28, 2024 History Surgery Operation Date: 05/28/24 12:00 Proposed Procedures p Intramedullary Michael Femur(Left) - Yuniel Johnson DO Height/Weight Height: 5 ft 1 in Weight: 54.3 kg Allergies Allergy/AdvReac Type Severity Reaction Status Date / Time sulfamethoxazole Allergy Severe Nausea Verified 04/17/24 21:44 [From Bactrim] trimethoprim [From Bactrim] Allergy Severe Nausea Verified 04/17/24 21:44 Penicillins Allergy Intermediate Rash Verified 04/17/24 21:44 nitrofurantoin AdvReac Mild Nausea Verified 04/17/24 21:44 [From Macrobid] Medications Home Medications Medication Instructions Recorded Confirmed Last Taken albuterol sulfate 90 mcg/actuation 2 puff inhalation QID PRN 06/27/18 05/28/24 03/31/21 aerosol inhaler (ProAir HFA) Shortness Of Breath vitamins A,C,I-qxvr-rnzqzj 2,148 1 tab PO BID 06/27/18 05/28/24 05/27/24 20:00 mcg-113 mg-45 mg-17.4 mg tablet (PreserVision AREDS) cholecalciferol (vitamin D3) 25 25 mcg PO QAM 04/01/21 05/28/24 05/27/24 08:00 mcg (1,000 unit) capsule (Vitamin D3) faricimab-svoa 6 mg/0.05 mL 6 mg intravitreal UD 10/03/23 05/28/24 04/26/24 intravitreal solution (Vabysmo) metoprolol succinate 25 mg 25 mg PO BID #60 tabs 11/13/23 05/28/24 05/27/24 20:00 tablet,extended release 24 hr d-mannose 500 mg capsule 500 mg PO BID 12/12/23 05/28/24 05/27/24 08:00 rosuvastatin 40 mg tablet 40 mg PO QAM 12/12/23 05/28/24 05/27/24 08:00 ondansetron HCl 4 mg tablet 4 mg PO Q6H PRN NAUSEA/VOMITING 12/14/23 05/28/24 Unknown #10 tabs lisinopril 5 mg tablet 5 mg PO DAILY #30 tabs 04/18/24 05/28/24 05/27/24 08:00 clopidogrel 75 mg tablet 75 mg PO DAILY 05/28/24 05/28/24 1 Day Ago ~05/27/24 Active Medications Generic Name Dose Route Start Last Admin Trade Name Talia PRN Reason Stop Dose Admin Ephedrine Sulfate 5 mg 05/28/24 15:29 05/28/24 17:39 Ephedrine Sulfate 50 Mg/Ml Amp IV 05/28/24 23:29 5 mg Q5M PRN Administration PACU Use Only-SBP<90 mmHg Potassium Chloride/Sodium Chloride 20 meq in 1,000 mls @ 50 mls/hr 05/28/24 05:51 05/28/24 05:58 Normal Saline W/20 Meq Kcl IV 05/29/24 01:50 50 mls/hr .Q20H ONE Administration Phenylephrine HCl 25 mg in 250 mls @ 3.258 mls/hr 05/28/24 17:38 05/28/24 18:04 Phenylephrine/Nss IV 05/29/24 01:39 0.1 mcg/kg/min .Q24H PRN 3.3 mls/hr SBP below 100mmHg Administration Protocol 0.1 MCG/KG/MIN Lisinopril 5 mg 05/28/24 09:00 05/28/24 09:27 Lisinopril 5 Mg Tab PO 06/27/24 08:59 5 mg DAILY CLAUDETTE Administration Metoprolol Succinate 25 mg 05/28/24 09:00 05/28/24 09:27 Metoprolol Succ 25mg Ext Rel Tab PO 06/27/24 08:59 25 mg BID CLAUDETTE Administration Morphine Sulfate 2 mg 05/28/24 06:00 05/28/24 13:32 Morphine Sulfate 2 Mg/Ml Carp IV 06/11/24 05:59 2 mg Q3H PRN Administration Pain Multivitamins/Minerals 1 tab 05/28/24 09:00 05/28/24 09:28 Cerovite Adv Formula Tab PO 06/27/24 08:59 1 tab DAILY CLAUDETTE Administration Rosuvastatin Calcium 40 mg 05/28/24 09:00 05/28/24 09:28 Rosuvastatin Calcium 20 Mg Tab PO 06/27/24 08:59 40 mg QAM CLAUDETTE Administration Vitamin D 25 mcg 05/28/24 09:00 05/28/24 09:28 Cholecalciferol 25 Mcg (1000 Units) Tab PO 06/27/24 08:59 25 mcg QAM CLAUDETTE Administration NPO Time Last Intake of Fluids: 14:00 Date Last Intake of Solids: 05/27/24 Time Last Intake of Solids: 17:00 Past Family History Family History Mother Myocardial infarction Son Stroke Past Surgical History Surgical History No pertinent past surgical history Social History Smoking Status: Former smoker Do You Dip or Chew Tobacco: No Hx Alcohol Use: No alcohol intake frequency: holidays/special occasions only Hx Substance Use: No substance use type: does not use Physical Exam Vital Signs Last Vital Signs Temp 36.0 C L 05/28/24 17:21 Pulse 130 H 05/28/24 17:21 Resp 96 H 05/28/24 17:21 BP 64/44 L 05/28/24 17:21 Pulse Ox 96 05/28/24 17:21 O2 Del Method Oxymask 05/28/24 17:21 O2 Flow Rate 8 05/28/24 17:21 Testing Laboratory Results 05/28/24 07:04 05/28/24 04:39 PT 11.4 Seconds (9.0-12.0) 05/28/24 04:39 INR 1.1 (0.9-1.1) 05/28/24 04:39 APTT 25 Seconds (21-31) 05/28/24 04:39 Urine Color Yellow 05/28/24 04:35 Urine Appearance Clear (Clear) 05/28/24 04:35 Urine pH 6.0 (4.5-7.5) 05/28/24 04:35 Ur Specific [place] 1.009 (1.000-1.030) 05/28/24 04:35 Urine Protein Trace (Negative) H 05/28/24 04:35 Urine Glucose (UA) Negative (Negative) 05/28/24 04:35 Urine Ketones Negative (Negative) 05/28/24 04:35 Urine Nitrite Negative (Negative) 05/28/24 04:35 Ur Leukocyte Esterase Negative (Negative) 05/28/24 04:35 Urine WBC (Auto) 0-5 /hpf (0-5) 05/28/24 04:35 Urine RBC (Auto) 0-2 /hpf (0-2) 05/28/24 04:35 U Hyaline Cast (Auto) 3-5 /lpf (0-2) H 05/28/24 04:35 U Epithel Cells (Auto) 0-2 /hpf (0-2) 05/28/24 04:35 Urine Bacteria (Auto) None Seen (None Seen) 05/28/24 04:35 Blood Type O Positive 05/28/24 07:04 Antibody Screen NEGATIVE 05/28/24 07:04
--- NOTE | 2024-05-28 18:41 | Anesthesiology Progress Note ---
Date of Service May 28, 2024 Anesthesia Post Procedure Vital Signs Vital Signs: Temp Pulse Pulse Resp BP BP Pulse Ox 05/28/24 17:21 36.0 C L 130 H 96 H 64/44 L 96 05/28/24 15:14 05/28/24 11:29 95 H 18 140/79 99 05/28/24 11:29 95 H 18 99 05/28/24 09:08 99 H 20 142/74 H 98 05/28/24 09:08 99 H 20 98 05/28/24 08:35 95 H 05/28/24 07:45 94 H 16 100 05/28/24 07:10 100 05/28/24 07:08 98 H 16 152/73 H 100 05/28/24 06:42 94 H 16 99 05/28/24 06:21 84 16 154/87 H 100 05/28/24 06:15 148/80 H 05/28/24 06:15 92 H 148/80 H 05/28/24 06:07 157/80 H 05/28/24 06:03 98 H 21 156/86 H 99 05/28/24 06:02 98 H 156/86 H 05/28/24 06:02 98 H 16 156/86 H 100 05/28/24 06:00 95 H 18 117/76 99 05/28/24 05:48 101 H 24 167/91 H 100 05/28/24 05:46 96 H 18 167/97 H 99 05/28/24 05:39 96 H 24 161/97 H 100 05/28/24 05:12 99 H 18 100 05/28/24 05:06 105 H 24 158/85 H 99 05/28/24 04:56 103 H 18 95 05/28/24 04:55 102 H 18 83 L 05/28/24 04:33 107 H 20 201/125 H 95 05/28/24 04:19 157/121 H 05/28/24 04:19 106 H 05/28/24 04:17 36.6 C 107 H 20 157/121 H 94 O2 Del Method O2 Flow Rate 05/28/24 17:21 Oxymask 8 05/28/24 15:14 Nasal Cannula 2 05/28/24 11:29 Nasal Cannula 2 05/28/24 11:29 Nasal Cannula 2 05/28/24 09:08 Nasal Cannula 2 05/28/24 09:08 Nasal Cannula 2 05/28/24 08:35 05/28/24 07:45 Nasal Cannula 2 05/28/24 07:10 Nasal Cannula 2 05/28/24 07:08 Room Air 05/28/24 06:42 Nasal Cannula 2 05/28/24 06:21 Nasal Cannula 2 05/28/24 06:15 05/28/24 06:15 05/28/24 06:07 05/28/24 06:03 Nasal Cannula 2 05/28/24 06:02 05/28/24 06:02 Nasal Cannula 2 05/28/24 06:00 Nasal Cannula 2 05/28/24 05:48 Nasal Cannula 2 05/28/24 05:46 Nasal Cannula 2 05/28/24 05:39 Nasal Cannula 2 05/28/24 05:12 Nasal Cannula 2 05/28/24 05:06 Nasal Cannula 2 05/28/24 04:56 Nasal Cannula 2 05/28/24 04:55 Room Air 05/28/24 04:33 Room Air 05/28/24 04:19 05/28/24 04:19 05/28/24 04:17 Room Air Pain Intensity Left Hip: Pain Intensity: 5 Transfer of Care Handoff Completed per policy Notes Mental Status: alert / awake / arousable Patient Amnestic to Procedure: Yes Nausea / Vomiting: adequately controlled Pain: adequately controlled Airway Patency, RR, SpO2: stable & adequate BP & HR: see Notes below Hydration State: stable & adequate Anesthetic Complications: no major complications apparent Notes: Alert with adequate ventilation. However, despite fluid resuscitation to treat hypotension, unable to wean off of vasoactive agent in recovery. Pending admission to ICU for further resuscitation and observation.
[2024-05-28] MEDS: PHENYLEPHRINE/NSS 25 MG/250 ML BAG IV SCH (20:00)
[2024-05-28] MEDS ORDERED: ALBUTEROL HFA 8 GM INHALER INH PRN (20:05)
[2024-05-28] MEDS: ePHEDrine sulfate 50 MG/ML AMP ONE (20:07)
[2024-05-28 20:24] LABS: Calcium 8.4 mg/dl (8.6-10.3); Creatinine Clr Calc Pharmacy 41.4 ml/min; Magnesium 1.9 mg/dl (1.7-2.4); Phosphorus 3.7 mg/dl (2.5-4.9); Potassium 4.2 mmol/L (3.5-5.1)
[2024-05-28] MEDS: ACETAMINOPHEN 500 MG TAB PO SCH (20:33)
[2024-05-28 20:43] LABS: Basophils # (auto) 0.07 K/uL (0.00-0.20); Basophils % (auto) 0.3 %; Eosinophils # (auto) 0.01 K/uL (0.00-0.50); Hematocrit (blood only) 31.1 % (37.0-47.0); Hemoglobin 9.9 g/dl (12.0-16.0); Immature Granulocytes # (auto) 0.13 K/uL (0.01-0.20); Immature Granulocytes % (auto) 0.5 %; Lymphocytes # (auto) 1.12 K/uL (1.20-3.40); Lymphocytes % (auto) 4.3 %; Mean Corpuscular Hemoglobin 30.3 pg (25.0-34.0); Mean Corpuscular Hgb Conc 31.8 g/dL (32.0-36.0); Mean Corpuscular Volume 95.1 fL (80.0-100.0); Mean Platelet Volume 9.8 fL (9.4-12.4); Monocytes # (auto) 1.96 K/uL (0.11-0.59); Monocytes % (auto) 7.6 %; Neutrophils # (auto) 22.58 K/uL (1.40-6.50); Neutrophils % (auto) 87.3 %; Platelet Count 152 K/uL (130-400); RDW Coefficient of Variation 15.2 % (11.5-14.5); RDW Standard Deviation 53.1 fL (36.4-46.3); Red Blood Count 3.27 M/uL (4.20-5.40); White Blood Count 25.87 K/ul (4.8-10.8)
[2024-05-28] MEDS: ICU Protocol for HYPERglycemia SCH (20:44)
[2024-05-28] MEDS: PLASMA-LYTE A 1,000 ML IV SCH (21:07)
--- NOTE | 2024-05-28 21:08 | Critical Care Consultation ---
Date of Consultation May 28, 2024 Assessment & Plan (1) Hypotension: Reason Critically Ill: 83-year-old female presents to the ICU postop following closed reduction and fixation of the left intertrochanteric hip fracture, for which she was found to be hypotensive and recovery requiring phenylephrine drip. Neuro - [facility] ICU: Negative History of TIA/carotid artery stenosisno issue at this time. Plavix on hold due to surgical procedure. Monitor Cardiac - Hypotensionunsure of etiology at this time, but suspect this is likely due to anesthesia/analgesics, with preop antihypertensives administered this morning. Prior to surgery patient was hypertensive and required IV metoprolol yesterday evening on admission. - Cannot rule out infectious process at this time although no identifiable source. Suspect leukocytosis is reactionary and lactate may be attributed to hypotensive state. See ID for further management - No respiratory distress or hypoxia to indicate PE - EKG preop reviewed by cardiology and appears to be in sinus rhythm with frequent PACs. Preop echo with normal EF, grade 1 diastolic dysfunction, and moderate MR -Hold further antihypertensives for now - Repeat hemoglobin 9.9, with preop hemoglobin of 12. EBL 250. She does not appear to have any active bleeding and no significant hematoma noted on exam at surgical site. Will trend H&H for now -Will check cortisol level although patient was not noted to be on steroids prior to surgery - She is currently maintaining MAP with low-dose phenylephrine drip and is otherwise asymptomatic. Will give additional fluid resuscitation and wean drip as tolerated. - Hopefully hemodynamics will improve as anesthesia continues to metabolize. Will monitor closely in ICU. HLDcontinue statin Respiratory - Asthmalungs clear to auscultation on exam and no respiratory distress. She is currently maintaining oxygen saturations on room air. Continue albuterol as needed. Continuous monitoring pulse ox GI - N.p.o. for now RENAL/LYTES - Creatinine within normal limits. Monitor routine BMPs and replete electrolytes as indicated - Strict I's and O's ENDO - No history of diabetes or thyroid disease. She is currently euglycemic. ICU hyperglycemic protocol HEME - EBL 250 per OR note. Repeat hemoglobin of 9.9 with previous hemoglobin of 12 prior to surgery. This is acceptable for now but will continue to trend H&H and transfuse if indicated as this may be contributing to patient's hypotension. No evidence of active bleeding on exam, although downtrending hemoglobin may warrant further exam/imaging. Monitor closely -Will administer 250 ml 5% albumin considering EBL to see if this improves hemodynamics postop Ortho Status post closed reduction of cephalomedullary fixation left intra can Stone hip fracture with physician directed fluoroscopy for closed, traumatic, displaced left intertrochanteric hip fracture following a fall at home - Management per Ortho. Admitted to ICU for management of hypotension following procedure - Surgical incision appears well-approximated with no significant swelling or erythema. Does not appear to have significant hematoma at surgical site. - Pain management: Acetaminophen, morphine as needed ID - Patient does have leukocytosis postop with WBC of 25, and slightly elevated lactate of 2.4. Will check procalcitonin and blood cultures although currently has no identifiable source of infection, and leukocytosis may be reactionary due to surgical intervention/fracture. Of note, patient does have penicillin allergy. Continue with empiric Ancef. Would consider escalating antibiotics if patient were to become febrile, worsening hemodynamics, or other suspicion for source of infection LINES/IV ACCESS - Peripheral IVs. Will consider central line insertion if vasopressor requirements increase DVT PROPHYLAXIS - SCDs, hold anticoagulation following surgery I have personally spent 42 minutes of critical care time in the direct management of this patient. This is a life/limb threatening event. This includes time spent evaluating patient, direct bedside care, chart review, placing orders, interpretation of diagnostic studies, discussion with consultants, patient, and family members, as well as other required patient management activ ities. This time is exclusive of all separately billable procedures, and teaching time and separate from and in addition to any other critical care service time. Thank you for allowing us to participate in the care of this patient. Please refer to my attending physician's documentation for any further recommendations. (2) Hyperlipidemia: (3) Degenerative disc disease, cervical: (4) Asthma: (5) Fracture of left hip: (6) Injury of wrist, left: History of Present Illness Attending Physician: Karla Sarah MD History of Present Illness Patient is an 83-year-old female with past medical history of HTN, TIA, HLD, lumbar spondylosis, asthma who presented to the emergency department yesterday following a fall in her bathroom in which she Closed, traumatic, displaced left intertrochanteric hip fracture. Patient was noted to be hypertensive at the time of arrival and was given IV metoprolol and restarted on home medications with MTP and lisinopril. EKG was interpreted by cardiology to be sinus rhythm with frequent PACs, and she had an echo which revealed normal EF with grade 1 diastolic dysfunction and moderate MR prior to surgery. Today patient underwent closed reduction and cephalomedullary fixation for left intertrochanteric hip fracture. Postoperatively patient was hypotensive, And was placed on phenylephrine drip and admitted to ICU. Patient evaluated in ICU. Alert and oriented without acute distress. She is currently on low-dose phenylephrine drip and sinus rhythm on monitor with heart rate 90s to low 100s, maintaining oxygen saturation on room air. Patient denies headache, dizziness, sore throat, cough or congestion, shortness of breath, chest pain, palpitations, abdominal pain, nausea or vomiting or diarrhea. She denies any changes in vision, weakness or numbness or tingling. She does report moderate pain to the surgical site at the left hip which she describes as "feels like it is bruised." She also reports mild lower back pain, Which she states is chronic due to lumbar stenosis. She denies pain from left wrist which also sustained a fracture. Patient to remain in ICU for further management at this time. Allergies Allergy/AdvReac Type Severity Reaction Status Date / Time sulfamethoxazole Allergy Severe Nausea Verified 04/17/24 21:44 [From Bactrim] trimethoprim [From Bactrim] Allergy Severe Nausea Verified 04/17/24 21:44 Penicillins Allergy Intermediate Rash Verified 04/17/24 21:44 nitrofurantoin AdvReac Mild Nausea Verified 04/17/24 21:44 [From Macrobid] Home Medications Medication Instructions Recorded Confirmed Type albuterol sulfate 90 mcg/actuation 2 puff inhalation QID PRN 06/27/18 05/28/24 History aerosol inhaler (ProAir HFA) Shortness Of Breath vitamins A,C,Q-kcow-rdgrlu 2,148 1 tab PO BID 06/27/18 05/28/24 History mcg-113 mg-45 mg-17.4 mg tablet (PreserVision AREDS) cholecalciferol (vitamin D3) 25 25 mcg PO QAM 04/01/21 05/28/24 History mcg (1,000 unit) capsule (Vitamin D3) faricimab-svoa 6 mg/0.05 mL 6 mg intravitreal UD 10/03/23 05/28/24 History intravitreal solution (Vabysmo) metoprolol succinate 25 mg 25 mg PO BID #60 tabs 11/13/23 05/28/24 Rx tablet,extended release 24 hr d-mannose 500 mg capsule 500 mg PO BID 12/12/23 05/28/24 History rosuvastatin 40 mg tablet 40 mg PO QAM 12/12/23 05/28/24 History ondansetron HCl 4 mg tablet 4 mg PO Q6H PRN NAUSEA/VOMITING 12/14/23 05/28/24 Rx #10 tabs lisinopril 5 mg tablet 5 mg PO DAILY #30 tabs 04/18/24 05/28/24 Rx clopidogrel 75 mg tablet 75 mg PO DAILY 05/28/24 05/28/24 History Patient History Surgical History No pertinent past surgical history Family History Mother Myocardial infarction Son Stroke Social History Smoking Status: Former smoker Tobacco Type: Cigarettes Second Hand Exposure: No; Do You Dip or Chew Tobacco: No; Hx Alcohol Use: No Hx Substance Use: No Preferred Language: Azeri Communication Ability: Effective 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: No Beliefs That Will Affect Care: None marital status: Current Living Situation: Personal Care Facility Current Living Situation Comment: [facility] current occupational status: retired Other Information That Helps Us Care for You: No Feels Safe at Home: Yes Safety Concerns: Feels Safe At This Time Assistive Devices: Glasses Review of Systems Review of Systems: All systems reviewed & are unremarkable except as noted in HPI & below Physical Exam Constitutional: cooperative and comfortable Eyes: PERRL, conjunctivae normal, anicteric sclerae ENMT: external ear and nose normal, oropharynx normal Neck: trachea midline, no thyromegaly Respiratory: normal respiratory effort, lungs clear to auscultation Cardiovascular: RRR, no murmur, no edema Rate/Rhythm: + irregularly irregular Heart Sounds: + murmur Vessels: no JVD Extremities: no edema Gastrointestinal (Abdomen): normal bowel sounds, soft, nontender, no hepatosplenomegaly Musculoskeletal: no cyanosis or clubbing, extremities motor strength 5/5 Skin: no rashes, warm and dry Neurologic: PERRL, EOMI, accommodation nl, no face palsy, no dysarthria Psychiatric: A+Ox3, euthymic affect Results & Data Results & Data Vital Signs (Past 12 Hours) Vital Signs Temp Pulse Pulse Resp BP Pulse Ox O2 Del Method 05/28/24 19:47 36.4 C L 104 H 12 90/47 L 96 Nasal Cannula 05/28/24 19:10 110 H 15 93/41 L 93 Oxymask 05/28/24 19:00 112 H 15 100/47 L 93 Oxymask 05/28/24 18:50 36.4 C L 109 H 15 111/52 L 100 Oxymask 05/28/24 18:40 112 H 18 109/51 L 100 Oxymask 05/28/24 18:30 112 H 15 104/52 L 100 Oxymask 05/28/24 18:20 111 H 15 80/40 L 100 Oxymask 05/28/24 18:10 113 H 15 85/43 L 99 Oxymask 05/28/24 18:00 115 H 17 107/56 L 100 Oxymask 05/28/24 17:50 120 H 19 70/41 L 100 Oxymask 05/28/24 17:40 105 H 19 60/41 L 98 Oxymask 05/28/24 17:30 105 H 18 78/43 L 96 Oxymask 05/28/24 17:21 36.0 C L 130 H 20 64/44 L 96 Oxymask 05/28/24 15:14 Nasal Cannula 05/28/24 11:29 95 H 18 140/79 99 Nasal Cannula 05/28/24 11:29 95 H 18 99 Nasal Cannula 05/28/24 09:08 99 H 20 142/74 H 98 Nasal Cannula 05/28/24 09:08 99 H 20 98 Nasal Cannula O2 Flow Rate 05/28/24 19:47 1 05/28/24 19:10 0 05/28/24 19:00 0 05/28/24 18:50 4 05/28/24 18:40 4 05/28/24 18:30 4 05/28/24 18:20 8 05/28/24 18:10 8 05/28/24 18:00 8 05/28/24 17:50 8 05/28/24 17:40 8 05/28/24 17:30 8 05/28/24 17:21 8 05/28/24 15:14 2 05/28/24 11:29 2 05/28/24 11:29 2 05/28/24 09:08 2 05/28/24 09:08 2 Coding Level of Care Code 30317 CRITICAL CARE 1ST 30-74M Diagnoses Hypotension I95.9 Hyperlipidemia E78.5 Degenerative disc disease, cervical M50.30 Asthma J45.909 Fracture of left hip S72.002A Injury of wrist, left S69.92XA
[2024-05-28] MEDS ORDERED: STAT IV Infusion **Titration per Protocol STA (21:24)
--- NOTE | 2024-05-28 22:46 | XRay Report ---
Exam(s): XR LEFT HIP EXAM: XR Left Hip With Pelvis When Performed, 2 or 3 Views CLINICAL HISTORY: Reason for exam: Post-Operative implant position. TECHNIQUE: Two or three views of the left hip with pelvis when performed. COMPARISON: Intra-Op images same-day IMPRESSION: Status post left hip ORIF with anatomic alignment. No hardware complication. Electronically signed by: Ryan Forbes MD 05/28/24 22:46 PM
[2024-05-28 22:51] LABS: Hematocrit (blood only) 25.6 % (37.0-47.0); Hemoglobin 8.2 g/dl (12.0-16.0)
[2024-05-28] MEDS: ceFAZolin 1000MG 1,000 MG/7.5 ML SYR IV SCH (23:08)
[2024-05-28] MEDS ORDERED: SODIUM CHLORIDE 0.9% 50 ML IV PRN (23:32)
[2024-05-28] MEDS ORDERED: SODIUM CHLORIDE 0.9% 100 ML IV PRN (23:32)
[2024-05-29 00:34] LABS: Fibrinogen 206 mg/dl (184-400); INR 1.2 (0.9-1.1); Prothrombin Time 12.6 Seconds (9.0-12.0)
[2024-05-29] MEDS: traMADol HCL 50 MG TABLET PO PRN (01:37)
--- NOTE | 2024-05-29 01:45 | CT Scan Report ---
EXAM: CT abd pelvis wo con CLINICAL HISTORY: r/o retroperiotneal bleed TECHNIQUE: Non-contrast CT of the abdomen and pelvis was performed, with the following protocol: axial images, and reconstructed coronal and sagittal images. No intravenous contrast was administered. One of the following dose reduction techniques was utilized for this exam: Automated exposure control, adjustment of the mA and/or kV according to patient size, and use of iterative reconstruction. COMPARISON: Comparison is made with a previous CT dated 05/28/2024 performed earlier. FINDINGS: Abdomen: Liver: Normal in size, shape, and density. Small hepatic hypodensities, likely cysts. Gallbladder and Biliary System: The gallbladder is normal in size and shape. No wall thickening, pericholecystic fluid, or gallstones were identified. The intrahepatic biliary ducts and the proximal CBD are prominent. Pancreas: Pancreatic head, body, and tail are visualized and appear normal in size and density. No pancreatic masses or calcifications were noted. Spleen: Normal in size, shape, and density. No splenic lesions or masses were identified. Kidneys and Adrenal Glands: Both kidneys are normal in size, shape, and position. Cortical thickness is within normal limits. No renal calculi or hydronephrosis. Adrenal glands are unremarkable. Pelvis: Urinary Bladder: Collapsed, with Swan's bulb in situ. Uterus: Normal in size and contour. No masses or abnormal thickening. A ring is noted in the vagina/cervix Ovaries: No gross abnormalities were noted. Peritoneal and Retroperitoneal Structures: Mild free fluid is seen in the pelvis, slightly hyperdense. No lymphadenopathy was noted. Extensive atherosclerotic calcifications of the aortic hodgson. Bowel: Unchanged pouch-like structure adjacent to the 2nd part of the duodenum suggests a duodenal diverticula/prominent bowel loop. The visualized large bowel loops are normal in caliber and appearance. No evidence of bowel obstruction or wall thickening. Colonic diverticulosis. Bones and Soft Tissues: Osteopenia. Spondylotic changes in the lumbar spine, with reduced central vertebral body height of L2 and mild anterolisthesis of L4 over the L5. Post-surgical changes in the left hip, with fixation of the previously seen fracture. Extensive fat stranding and a 31 x 36 mm hematoma are seen along the surgical subcutaneous planes of the left hip. Extensive air locules are seen along the subcutaneous region and in the gluteal muscles and extending into the pelvic cavity, likely post-surgical change. Additional: Visualized lung bases show fibrotic changes with honeycombing. IMPRESSION: 1. Mild slightly hyperdense fluid collection in the pelvis(mildly increased). 2. No retroperitoneal hematoma. 3. Post-surgical changes in the left hip, with fixation of the previously seen fracture. 4. Extensive fat stranding and a 31 x 36 mm hematoma along the surgical subcutaneous planes of the left hip. 5. Extensive air locules are seen along the subcutaneous region and in the gluteal muscles and extending into the pelvic cavity, likely post-surgical change. 6. Stable spondylotic changes in the lumbar spine, with a reduced central vertebral body height of L2 and mild anterolisthesis of L4 over the L5. 7. The rest of the findings have been stable since the last scan. Electronically signed by Audra Warner 05-29-2024 01:45 AM
[2024-05-29 05:18] LABS: Calcium 7.8 mg/dl (8.6-10.3); Creatinine Clr Calc Pharmacy 55.2 ml/min; Magnesium 2.1 mg/dl (1.7-2.4); Phosphorus 3.8 mg/dl (2.5-4.9); Potassium 4.5 mmol/L (3.5-5.1)
[2024-05-29 05:42] LABS: Hematocrit (blood only) 25.2 % (37.0-47.0); Hemoglobin 8.5 g/dl (12.0-16.0); Mean Corpuscular Hemoglobin 31.1 pg (25.0-34.0); Mean Corpuscular Hgb Conc 33.7 g/dL (32.0-36.0); Mean Corpuscular Volume 92.3 fL (80.0-100.0); Mean Platelet Volume 9.9 fL (9.4-12.4); Platelet Count 96 K/uL (130-400); RDW Coefficient of Variation 14.7 % (11.5-14.5); RDW Standard Deviation 49.7 fL (36.4-46.3); Red Blood Count 2.73 M/uL (4.20-5.40); White Blood Count 12.69 K/ul (4.8-10.8)
[2024-05-29 05:43] LABS: Basophils # (auto) 0.02 K/uL (0.00-0.20); Basophils % (auto) 0.2 %; Immature Granulocytes # (auto) 0.06 K/uL (0.01-0.20); Immature Granulocytes % (auto) 0.5 %; Lymphocytes # (auto) 1.07 K/uL (1.20-3.40); Lymphocytes % (auto) 8.4 %; Monocytes # (auto) 1.08 K/uL (0.11-0.59); Monocytes % (auto) 8.5 %; Neutrophils # (auto) 10.46 K/uL (1.40-6.50); Neutrophils % (auto) 82.4 %; Platelet Estimate Decreased (Normal)
--- NOTE | 2024-05-29 07:11 | Fluoroscopy Report ---
FL hip LT 2-3V CLINICAL HISTORY: L TROCH NAIL COMPARISON STUDY: Femur radiographs of same day FLUOROSCOPY TIME: 200 seconds FLUOROSCOPY IMAGES: 6 EXPOSURE DOSE: 30.04 mGy FINDINGS: Status post placement of a trochanteric nail with medullary jacqueline fixating the acute left pro ximal femoral fracture. Satisfactory alignment with expected postoperative soft tissue swelling and d eep tissue air. IMPRESSION: Fluoroscopic assistance as above. ACT 112: Negative or not required by law. Electronically signed by: Mathew Bustos M.D. 05/29/2024 7:09 AM
--- NOTE | 2024-05-29 07:49 | Cardiology Progress Note ---
Date of Service May 29, 2024 Assessment & Plan Admission and Anticipated Discharge Date Admission Date: May 28, 2024 Subjective Events Overnight: Subjective: Review of Systems Review of Systems: All systems reviewed & are unremarkable except as noted in HPI & below Results & Data Vital Signs (Past 12 Hours) Vital Signs Temp Pulse Pulse Resp BP BP Pulse Ox 05/29/24 06:30 92 H 109/46 L 05/29/24 06:00 90 14 105/42 L 95 05/29/24 05:30 89 107/46 L 05/29/24 05:00 36.5 C 98 H 14 108/45 L 98 05/29/24 04:43 90 100/44 L 05/29/24 04:00 96 H 18 107/44 L 98 05/29/24 03:30 100 H 111/44 L 05/29/24 03:15 90 115/47 L 05/29/24 03:00 99 H 16 111/44 L 99 05/29/24 03:00 36.8 C 84 18 112/45 L 99 05/29/24 02:55 36.8 C 87 17 108/45 L 98 05/29/24 02:47 89 110/47 L 05/29/24 02:33 87 101/44 L 05/29/24 02:00 87 19 104/42 L 96 05/29/24 01:54 36.5 C 104 H 14 93/45 L 96 05/29/24 01:24 36.5 C 106 H 16 110/45 L 97 05/29/24 01:15 108 H 110/48 L 05/29/24 01:09 36.4 C L 99 H 17 106/41 L 100 05/29/24 01:00 104 H 102/40 L 05/29/24 00:51 36.4 C L 84 16 99/44 L 96 05/29/24 00:30 100 H 20 109/47 L 96 05/29/24 00:00 36.8 C 91 H 21 112/52 L 97 05/28/24 23:45 99 H 109/45 L 05/28/24 23:45 97 H 05/28/24 23:30 100 H 95/59 L 05/28/24 23:15 86 118/45 L 05/28/24 23:00 36.9 C 84 14 109/45 L 96 05/28/24 22:30 94 H 102/44 L 05/28/24 22:00 36.9 C 82 18 106/44 L 94 05/28/24 21:45 90 119/45 L 05/28/24 21:33 96 H 18 87 L 05/28/24 21:30 102/42 L 05/28/24 21:30 102/42 L 05/28/24 21:30 102/42 L 05/28/24 21:21 104/45 L 05/28/24 21:15 97 H 18 92 05/28/24 21:00 100 H 17 93 05/28/24 21:00 90/43 L 05/28/24 21:00 90/43 L 05/28/24 20:45 86/44 L 05/28/24 20:42 105 H 17 96 05/28/24 20:30 101 H 16 100 05/28/24 20:15 93/46 L 05/28/24 20:15 93/46 L 05/28/24 20:15 108 H 22 97 05/28/24 20:03 102 H 17 100 05/28/24 20:00 96/45 L 05/28/24 20:00 96/45 L 05/28/24 20:00 96/45 L O2 Del Method O2 Flow Rate 05/29/24 06:30 05/29/24 06:00 Room Air 05/29/24 05:30 05/29/24 05:00 Room Air 05/29/24 04:43 05/29/24 04:00 Nasal Cannula 1 05/29/24 03:30 05/29/24 03:15 05/29/24 03:00 Nasal Cannula 1 05/29/24 03:00 Nasal Cannula 1 05/29/24 02:55 05/29/24 02:47 05/29/24 02:33 05/29/24 02:00 Room Air 1 05/29/24 01:54 05/29/24 01:24 05/29/24 01:15 05/29/24 01:09 05/29/24 01:00 05/29/24 00:51 1 05/29/24 00:30 Nasal Cannula 1 05/29/24 00:00 Nasal Cannula 1 05/28/24 23:45 05/28/24 23:45 05/28/24 23:30 05/28/24 23:15 05/28/24 23:00 Nasal Cannula 1 05/28/24 22:30 05/28/24 22:00 Nasal Cannula 1 05/28/24 21:45 05/28/24 21:33 05/28/24 21:30 05/28/24 21:30 05/28/24 21:30 05/28/24 21:21 05/28/24 21:15 05/28/24 21:00 05/28/24 21:00 05/28/24 21:00 05/28/24 20:45 05/28/24 20:42 05/28/24 20:30 05/28/24 20:15 05/28/24 20:15 05/28/24 20:15 05/28/24 20:03 05/28/24 20:00 05/28/24 20:00 05/28/24 20:00 Laboratory Results Coagulation 05/28/24 Range/Units 23:46 PT 12.6 H (9.0-12.0) Seconds CBC 05/28/24 05/28/24 05/29/24 Range/Units 19:52 22:23 04:43 WBC 25.87 H D 12.69 H D (4.8-10.8) K/ul RBC 3.27 L 2.73 L (4.20-5.40) M/uL Hgb 9.9 L 8.2 L 8.5 L (12.0-16.0) g/dl Hct 31.1 L 25.6 L 25.2 L (37.0-47.0) % Plt Count 152 96 L (130-400) K/uL Neut # (Auto) 22.58 H 10.46 H (1.40-6.50) K/uL Lymph # (Auto) 1.12 L 1.07 L (1.20-3.40) K/uL [place] # (Auto) 1.96 H 1.08 H (0.11-0.59) K/uL Eos # (Auto) 0.01 0.00 (0.00-0.50) K/uL Baso # (Auto) 0.07 0.02 (0.00-0.20) K/uL Comprehensive Metabolic Panel 05/28/24 05/29/24 Range/Units 19:51 04:43 Sodium 134 L 134 L (136-145) mmol/L Potassium 4.2 4.5 (3.5-5.1) mmol/L Chloride 103 104 (98-107) mmol/L Carbon Dioxide 24 26 (21-32) mmol/L BUN 16 18 (6-23) mg/dl Creatinine 0.80 0.60 (0.6-1.2) mg/dl Glucose 151 H 131 H (70-99(Fasting)) mg/dl Calcium 8.4 L 7.8 L (8.6-10.3) mg/dl Intake and Output 05/28/24 05/29/24 05/29/24 22:59 06:59 14:59 Intake Total 1727.1 / 2933.932 1106.832 / 2933.932 Output Total 480 / 695 215 / 695 Balance 1247.1 / 2238.932 891.832 / 2238.932 Intake: IV 727.1 / 1523.932 696.832 / 1523.932 Albumin 5% 250 ml @ 500 mls/hr 500 / 500 IV ONE ONE Rx#:[id number] Magnesium Sulfate / D5w 1 gm In 100 / 100 100 ml @ 50 mls/hr IV ONE ONE Rx#:[id number] Nss + 20Meq KCl 20 meq In 1,000 0 / 0 ml @ 50 mls/hr IV .Q20H ONE Rx #:[id number] Phenylephrine/Nss 25 mg In 250 127.1 / 427.265 300.165 / 427.265 ml @ 0.1 MCG/KG/MIN 3.258 mls/ hr IV .Q24H PRN Rx#:[id number] Plasma-Lyte A 1,000 ml @ 100 396.667 / 396.667 mls/hr IV .Q10H CLAUDETTE Rx#: [id number] IV Perioperative 1000 / 1000 Oral 100 / 100 Intake (Blood Product) Amt 310 / 310 Packed Cells, Leukoreduced 310 / 310 Unit [id number] Output: Estimated Blood Loss 250 / 250 Urine Amount (Catheter) 230 / 445 215 / 445 Swan/Indwelling 230 / 445 215 / 445 Other: Weight 54 kg 54.8 kg Weight Measurement Method [facility] Medications Administered Current Inpatient Medications Acetaminophen (Acetaminophen 500 Mg Tab) 1,000 mg PO Q8H CLAUDETTE Stop: 06/27/24 19:14 Last Admin: 05/29/24 03:33 Dose: Not Given Albuterol (Albuterol Hfa 8 Gm Inhaler) 2 puffs INH QID PRN PRN Reason: Shortness Of Breath Stop: 06/27/24 20:04 Bisacodyl (Bisacodyl 10 Mg Supp) 10 mg MS DAILY PRN PRN Reason: Constipation Stop: 06/27/24 06:45 Promethazine HCl (Phenergan) 6.25 mg in 50.25 mls @ 201 mls/hr IV Q6H PRN PRN Reason: Nausea And Vomiting Stop: 06/27/24 05:59 Parenteral Electrolytes (Plasma-Lyte A Ph 7.4) 1,000 mls @ 100 mls/hr IV .Q10H CLAUDETTE Stop: 05/29/24 20:59 Last Infusion: 05/29/24 02:57 Dose: 100 mls/hr Phenylephrine HCl (Phenylephrine/Nss) 25 mg in 250 mls @ 16.2 mls/hr IV .[id number] CLAUDETTE; Protocol Stop: 06/27/24 21:29 Last Titration: 05/29/24 05:00 Dose: 0 mcg/kg/min, 0 mls/hr Ipratropium [place] (Ipratropium [place] Neb Soln 0.02% 0.5mg/2.5ml Vial) 0.5 mg INH Q4H PRN PRN Reason: sob wheeze Stop: 06/27/24 06:54 Levalbuterol HCl (Levalbuterol 1.25 Mg/3 Ml Neb) 1.25 mg NEB Q4H PRN PRN Reason: sob wheeze Stop: 06/27/24 06:54 Lisinopril (Lisinopril 5 Mg Tab) 5 mg PO DAILY CLAUDETTE Stop: 06/27/24 08:59 Last Admin: 05/28/24 09:27 Dose: 5 mg Metoprolol Succinate (Metoprolol Succ 25mg Ext Rel Tab) 25 mg PO BID CLAUDETTE Stop: 06/27/24 08:59 Last Admin: 05/28/24 09:27 Dose: 25 mg Miscellaneous (Icu Protocol For Hyperglycemia) 1 each N/A ACHS [facility] Stop: 05/30/24 20:59 Last Admin: 05/29/24 07:12 Dose: Not Given Morphine Sulfate (Morphine Sulfate 2 Mg/Ml Carp) 2 mg IV Q3H PRN PRN Reason: Pain Stop: 06/11/24 05:59 Last Admin: 05/29/24 07:16 Dose: 2 mg Multivitamins/Minerals (Cerovite Adv Formula Tab) 1 tab PO DAILY [facility] Stop: 06/27/24 08:59 Last Admin: 05/28/24 09:28 Dose: 1 tab Naloxone HCl (Naloxone Hcl 0.4 Mg/1 Ml Vial/Carp) 0.1 mg IV UD PRN PRN Reason: Opiate Overdose Stop: 06/27/24 06:45 Rosuvastatin Calcium (Rosuvastatin Calcium 20 Mg Tab) 40 mg PO QAM [facility] Stop: 06/27/24 08:59 Last Admin: 05/28/24 09:28 Dose: 40 mg Tramadol HCl (Tramadol Hcl 50 Mg Tablet) 25 - 50 mg PO Q4H PRN PRN Reason: Pain Stop: 06/27/24 05:59 Last Admin: 05/29/24 01:37 Dose: 50 mg Vitamin D (Cholecalciferol 25 Mcg (1000 Units) Tab) 25 mcg PO QAM [facility] Stop: 06/27/24 08:59 Last Admin: 05/28/24 09:28 Dose: 25 mcg
--- NOTE | 2024-05-29 08:09 | Orthopedic Progress Note ---
Date of Service May 29, 2024 Assessment & Plan (1) Fracture of left hip: (2) Hypertension: (3) Transient confusion: (4) Fall: (5) Asymptomatic hypertensive urgency: (6) Confusion: (7) Brain TIA: (8) Fracture of ulnar styloid: Plan patient is postoperative day #1 status post open reduction internal fixation with cephalomedullary nail of the left intertrochanteric hip fracture and closed management of left ulnar styloid fracture. Patient was admitted to the ICU last night due to soft blood pressures following operative intervention. She stabilized overnight and did not require pressure support this morning. Her pain is well-controlled at this point. Patient may bear weight as tolerated on the left lower and left upper extremities. She will likely require physical therapy and Occupational Therapy. We will determine an appropriate discharge plan once PT has had a chance to see and assess the patient. she will follow with me in 2 to 3 weeks for dressing change and staple removal. Admission and Anticipated Discharge Date Admission Date: May 28, 2024 Subjective Postoperative day #1 status post open reduction and internal fixation with cephalomedullary nail of the left intertrochanteric hip fracture And closed management of left ulnar styloid fracture. patient required pressors overnight but these have been weaned and she is stable at this point. Patient is comfortable in bed today. Review of Systems Review of Systems: All systems reviewed & are unremarkable except as noted in HPI & below Physical Exam Physical Exam: Dressings clean dry and intact. Sensation tact light touch L2-S1. EHL/FHL/GSC/TA motor intact. Foot warm and well-perfused Results & Data Vital Signs (Past 12 Hours) Vital Signs Temp Pulse Pulse Resp BP BP Pulse Ox 05/29/24 08:00 90 15 80/34 L 97 05/29/24 07:51 90 18 77/39 L 92 05/29/24 07:30 115 H 15 95/44 L 94 05/29/24 07:00 111 H 21 120/53 L 95 05/29/24 06:30 92 H 109/46 L 05/29/24 06:00 90 14 105/42 L 95 05/29/24 05:30 89 107/46 L 05/29/24 05:00 36.5 C 98 H 14 108/45 L 98 05/29/24 04:43 90 100/44 L 05/29/24 04:00 96 H 18 107/44 L 98 05/29/24 03:30 100 H 111/44 L 05/29/24 03:15 90 115/47 L 05/29/24 03:00 99 H 16 111/44 L 99 05/29/24 03:00 36.8 C 84 18 112/45 L 99 05/29/24 02:55 36.8 C 87 17 108/45 L 98 05/29/24 02:47 89 110/47 L 05/29/24 02:33 87 101/44 L 05/29/24 02:00 87 19 104/42 L 96 05/29/24 01:54 36.5 C 104 H 14 93/45 L 96 05/29/24 01:24 36.5 C 106 H 16 110/45 L 97 05/29/24 01:15 108 H 110/48 L 05/29/24 01:09 36.4 C L 99 H 17 106/41 L 100 05/29/24 01:00 104 H 102/40 L 05/29/24 00:51 36.4 C L 84 16 99/44 L 96 05/29/24 00:30 100 H 20 109/47 L 96 05/29/24 00:00 36.8 C 91 H 21 112/52 L 97 05/28/24 23:45 99 H 109/45 L 05/28/24 23:45 97 H 05/28/24 23:30 100 H 95/59 L 05/28/24 23:15 86 118/45 L 05/28/24 23:00 36.9 C 84 14 109/45 L 96 05/28/24 22:30 94 H 102/44 L 05/28/24 22:00 36.9 C 82 18 106/44 L 94 05/28/24 21:45 90 119/45 L 05/28/24 21:33 96 H 18 87 L 05/28/24 21:30 102/42 L 05/28/24 21:30 102/42 L 05/28/24 21:30 102/42 L 05/28/24 21:21 104/45 L 05/28/24 21:15 97 H 18 92 05/28/24 21:00 100 H 17 93 05/28/24 21:00 90/43 L 05/28/24 21:00 90/43 L 05/28/24 20:45 86/44 L 05/28/24 20:42 105 H 17 96 05/28/24 20:30 101 H 16 100 05/28/24 20:15 93/46 L 05/28/24 20:15 93/46 L 05/28/24 20:15 108 H 22 97 O2 Del Method O2 Flow Rate 05/29/24 08:00 Room Air 05/29/24 07:51 Room Air 05/29/24 07:30 Room Air 05/29/24 07:00 Room Air 05/29/24 06:30 05/29/24 06:00 Room Air 05/29/24 05:30 05/29/24 05:00 Room Air 05/29/24 04:43 05/29/24 04:00 Nasal Cannula 1 05/29/24 03:30 05/29/24 03:15 05/29/24 03:00 Nasal Cannula 1 05/29/24 03:00 Nasal Cannula 1 05/29/24 02:55 05/29/24 02:47 05/29/24 02:33 05/29/24 02:00 Room Air 1 05/29/24 01:54 05/29/24 01:24 05/29/24 01:15 05/29/24 01:09 05/29/24 01:00 05/29/24 00:51 1 05/29/24 00:30 Nasal Cannula 1 05/29/24 00:00 Nasal Cannula 1 05/28/24 23:45 05/28/24 23:45 05/28/24 23:30 05/28/24 23:15 05/28/24 23:00 Nasal Cannula 1 05/28/24 22:30 05/28/24 22:00 Nasal Cannula 1 05/28/24 21:45 05/28/24 21:33 05/28/24 21:30 05/28/24 21:30 05/28/24 21:30 05/28/24 21:21 05/28/24 21:15 05/28/24 21:00 05/28/24 21:00 05/28/24 21:00 05/28/24 20:45 05/28/24 20:42 05/28/24 20:30 05/28/24 20:15 05/28/24 20:15 05/28/24 20:15 Diagnostic Findings postoperative x-rays personally interpreted and reviewed. Demonstrate stable internal fixation of left cephalomedullary nail for intertrochanteric hip fracture
--- NOTE | 2024-05-29 08:49 | Cardiology Consultation ---
Date of Consultation May 29, 2024 Assessment & Plan (1) Fall: (2) Fracture of left hip: (3) Injury of wrist, left: (4) Hypotension: Plan Assessment: 83 year old female admitted for a left wrist injury and left hip fracture after sustaining a ground level fall at home. She was found to have a transient episode of atrial fibrillation at time of arrival and also found to have postoperative hypotension therefore cardiology has been consulted for assessment/recommendations. Plan: Case has been discussed with Dr. Burgess. Further recommendations regarding plan of care as per his assessment. I spent a total of 40 minutes on the date of service in preparation, delivery, documentation of the care provided to the patient excluding any time spent in the performance of separately billed services. MACIE Krueger [place] [facility] Supervising Physician Co-Signing Physician Notes Attending Staff: Patient seen and examined with AP Staff Concur with observations and plans 83 yo woman presenting s/p mechanical fall - Left hip and wrist pain Dx: Left hip Fx; wrist fx Consult for: post operative hypotension requiring pressors; + brief epsiode of Afib Left hip ORIF on 05-28-2024 Noted to have post operative Hypotension Lowest recorded BP 78/41 - Placed on Neosynephrine transiently Rx with IV Fluids + I unit of Blood Hypotension resolved - Currently 114/46 - Off Pressors Blood cultures checked and pending WBC 25K - trending down to 12K Treated with Operative-related ABX Plans: * ECHOcardiogram reviewed - no cardiac reason for hypotension * No Pericardial Effusion * No * Normal LV Function * No HOCM * Labile SBP appears to be linked to analgesic administration * Weaning phenylephrine to off; goal MAP 60 mmHg * WBC count decreased overnight * No new blood cultures * Patient appears warm on exam - no signs of cardiogenic shock * Reviewed EKG - appears to be sinus with APCs - no clear AFIB * Lisinopril 5 mg po per day and Toprol XL 25 mg po BID - both on hold given pressor requirement * LDL 54 - on Crestor 40 mg po per day * No active bleeding noted; Hgb is 9. * K+ goal 4.5-5 * MG goal>2 * No known adrenal challenges * Continue with supportive care * Encouraged mobilization * Critical Care involved with patient * Please call back with any additional questions. Donnell Burgess History of Present Illness Reason for Consultation: Post op hypotension Requesting Physician: Stefany hospitalist Attending Physician: Karla Sarah MD History of Present Illness HPI: Patient is an 83 year old female with PMHx significant for Mitral valve regurgitation, PVD, HTN, HLD, TIA, recurrent UTI, pre-diabetes and prior tobacco use that was admitted to [facility] on 05/28/2024 after sustaining a ground level fall in which she struck her head but did not lose consciousness. She was able to call her son and when EMS arrived, found her left leg externally rotated. She underwent left hip ORIF on 05/28/24. Cardiology has been consulted for post operative hypotension as well as a remote episode of A-fib on initial arrival. EKG on arrival demonstrated ST with PAC's , Rate 112. non-specific T wave abnormality noted in lateral leads. No A-fib noted Chest xray with no acute findings. Head CT: negative for acute findings. HIP and Pelvis xray: IMPRESSION: 1. Fracture of the intertrochanteric and neck region of the left femur. 2. CT scan is advised for further evaluation. Disclaimer: A subtle bone abnormality or fracture may not be readily apparent on X-rays, thus clinical correlation and further imaging including follow-up CT, MRI, or follow-up X-rays are advised as needed. [facility] ER was called at [phone] at 4:57 AM GERIATRICS PHYSICIAN, 05/28/2024 and Crystal Nurse was informed regarding the presence of Significant Medical Findings in the report. Wrist xray: IMPRESSION: 1. A thin sclerotic line is seen in the Scaphoid bone, Would recommend clinical correlation for focal tenderness and dedicated views. 2. A bony chip is seen at the ulnar styloid process raising the possibility of an avulsion fracture. 3. Moderate degenerative changes seen at first carpometacarpal and scaphotrapezium joint. Allergies Allergy/AdvReac Type Severity Reaction Status Date / Time sulfamethoxazole Allergy Severe Nausea Verified 04/17/24 21:44 [From Bactrim] trimethoprim [From Bactrim] Allergy Severe Nausea Verified 04/17/24 21:44 Penicillins Allergy Intermediate Rash Verified 04/17/24 21:44 nitrofurantoin AdvReac Mild Nausea Verified 04/17/24 21:44 [From Macrobid] Home Medications Medication Instructions Recorded Confirmed Type albuterol sulfate 90 mcg/actuation 2 puff inhalation QID PRN 06/27/18 05/28/24 History aerosol inhaler (ProAir HFA) Shortness Of Breath vitamins A,C,Y-zhjj-ozfhnp 2,148 1 tab PO BID 06/27/18 05/28/24 History mcg-113 mg-45 mg-17.4 mg tablet (PreserVision AREDS) cholecalciferol (vitamin D3) 25 25 mcg PO QAM 04/01/21 05/28/24 History mcg (1,000 unit) capsule (Vitamin D3) faricimab-svoa 6 mg/0.05 mL 6 mg intravitreal UD 10/03/23 05/28/24 History intravitreal solution (Vabysmo) metoprolol succinate 25 mg 25 mg PO BID #60 tabs 11/13/23 05/28/24 Rx tablet,extended release 24 hr d-mannose 500 mg capsule 500 mg PO BID 12/12/23 05/28/24 History rosuvastatin 40 mg tablet 40 mg PO QAM 12/12/23 05/28/24 History ondansetron HCl 4 mg tablet 4 mg PO Q6H PRN NAUSEA/VOMITING 12/14/23 05/28/24 Rx #10 tabs lisinopril 5 mg tablet 5 mg PO DAILY #30 tabs 04/18/24 05/28/24 Rx clopidogrel 75 mg tablet 75 mg PO DAILY 05/28/24 05/28/24 History Patient History Surgical History No pertinent past surgical history Family History Mother Myocardial infarction Son Stroke Social History Smoking Status: Former smoker Tobacco Type: Cigarettes Second Hand Exposure: No; Do You Dip or Chew Tobacco: No; Hx Alcohol Use: No Hx Substance Use: No Preferred Language: Lao Communication Ability: Effective Syrup Filterer Required: No Beliefs That Will Affect Care: None marital status: Current Living Situation: Personal Care Facility Current Living Situation Comment: [facility] current occupational status: retired Other Information That Helps Us Care for You: No Feels Safe at Home: Yes Safety Concerns: Feels Safe At This Time Assistive Devices: Glasses Physical Exam Physical Exam: thin woman + pain noted No elevation in JVP S1S2 2/6 HSM at apex CTA at apices - crackles R>L at bases + BS - hypoactive Both legs - same length Extremities - warm and perfused No LE swelling Results & Data Vital Signs (Past 12 Hours) Vital Signs Temp Pulse Pulse Resp BP BP Pulse Ox 05/29/24 08:00 90 15 80/34 L 97 05/29/24 07:51 90 18 77/39 L 92 05/29/24 07:30 115 H 15 95/44 L 94 05/29/24 07:00 111 H 21 120/53 L 95 05/29/24 06:30 92 H 109/46 L 05/29/24 06:00 90 14 105/42 L 95 05/29/24 05:30 89 107/46 L 05/29/24 05:00 36.5 C 98 H 14 108/45 L 98 05/29/24 04:43 90 100/44 L 05/29/24 04:00 96 H 18 107/44 L 98 05/29/24 03:30 100 H 111/44 L 05/29/24 03:15 90 115/47 L 05/29/24 03:00 99 H 16 111/44 L 99 05/29/24 03:00 36.8 C 84 18 112/45 L 99 05/29/24 02:55 36.8 C 87 17 108/45 L 98 05/29/24 02:47 89 110/47 L 05/29/24 02:33 87 101/44 L 05/29/24 02:00 87 19 104/42 L 96 05/29/24 01:54 36.5 C 104 H 14 93/45 L 96 05/29/24 01:24 36.5 C 106 H 16 110/45 L 97 05/29/24 01:15 108 H 110/48 L 05/29/24 01:09 36.4 C L 99 H 17 106/41 L 100 05/29/24 01:00 104 H 102/40 L 05/29/24 00:51 36.4 C L 84 16 99/44 L 96 05/29/24 00:30 100 H 20 109/47 L 96 05/29/24 00:00 36.8 C 91 H 21 112/52 L 97 05/28/24 23:45 99 H 109/45 L 05/28/24 23:45 97 H 05/28/24 23:30 100 H 95/59 L 05/28/24 23:15 86 118/45 L 05/28/24 23:00 36.9 C 84 14 109/45 L 96 05/28/24 22:30 94 H 102/44 L 05/28/24 22:00 36.9 C 82 18 106/44 L 94 05/28/24 21:45 90 119/45 L 05/28/24 21:33 96 H 18 87 L 05/28/24 21:30 102/42 L 05/28/24 21:30 102/42 L 05/28/24 21:30 102/42 L 05/28/24 21:21 104/45 L 05/28/24 21:15 97 H 18 92 05/28/24 21:00 100 H 17 93 05/28/24 21:00 90/43 L 05/28/24 21:00 90/43 L 05/28/24 20:45 86/44 L 05/28/24 20:42 105 H 17 96 O2 Del Method O2 Flow Rate 05/29/24 08:00 Room Air 05/29/24 07:51 Room Air 05/29/24 07:30 Room Air 05/29/24 07:00 Room Air 05/29/24 06:30 05/29/24 06:00 Room Air 05/29/24 05:30 05/29/24 05:00 Room Air 05/29/24 04:43 05/29/24 04:00 Nasal Cannula 1 05/29/24 03:30 05/29/24 03:15 05/29/24 03:00 Nasal Cannula 1 05/29/24 03:00 Nasal Cannula 1 05/29/24 02:55 05/29/24 02:47 05/29/24 02:33 05/29/24 02:00 Room Air 1 05/29/24 01:54 05/29/24 01:24 05/29/24 01:15 05/29/24 01:09 05/29/24 01:00 05/29/24 00:51 1 05/29/24 00:30 Nasal Cannula 1 05/29/24 00:00 Nasal Cannula 1 05/28/24 23:45 05/28/24 23:45 05/28/24 23:30 05/28/24 23:15 05/28/24 23:00 Nasal Cannula 1 05/28/24 22:30 05/28/24 22:00 Nasal Cannula 1 05/28/24 21:45 05/28/24 21:33 05/28/24 21:30 05/28/24 21:30 05/28/24 21:30 05/28/24 21:21 05/28/24 21:15 05/28/24 21:00 05/28/24 21:00 05/28/24 21:00 05/28/24 20:45 05/28/24 20:42 Laboratory Results Coagulation 05/28/24 Range/Units 23:46 PT 12.6 H (9.0-12.0) Seconds CBC 05/28/24 05/28/24 05/29/24 Range/Units 19:52 22:23 04:43 WBC 25.87 H D 12.69 H D (4.8-10.8) K/ul RBC 3.27 L 2.73 L (4.20-5.40) M/uL Hgb 9.9 L 8.2 L 8.5 L (12.0-16.0) g/dl Hct 31.1 L 25.6 L 25.2 L (37.0-47.0) % Plt Count 152 96 L (130-400) K/uL Neut # (Auto) 22.58 H 10.46 H (1.40-6.50) K/uL Lymph # (Auto) 1.12 L 1.07 L (1.20-3.40) K/uL Alpine # (Auto) 1.96 H 1.08 H (0.11-0.59) K/uL Eos # (Auto) 0.01 0.00 (0.00-0.50) K/uL Baso # (Auto) 0.07 0.02 (0.00-0.20) K/uL Comprehensive Metabolic Panel 05/28/24 05/29/24 Range/Units 19:51 04:43 Sodium 134 L 134 L (136-145) mmol/L Potassium 4.2 4.5 (3.5-5.1) mmol/L Chloride 103 104 (98-107) mmol/L Carbon Dioxide 24 26 (21-32) mmol/L BUN 16 18 (6-23) mg/dl Creatinine 0.80 0.60 (0.6-1.2) mg/dl Glucose 151 H 131 H (70-99(Fasting)) mg/dl Calcium 8.4 L 7.8 L (8.6-10.3) mg/dl Intake and Output 05/28/24 05/29/24 05/29/24 22:59 06:59 14:59 Intake Total 1727.1 / 2933.932 1106.832 / 2933.932 15.927 / 15.927 Output Total 480 / 695 215 / 695 60 / 60 Balance 1247.1 / 2238.932 891.832 / 2238.932 -44.073 / -44.073 Intake: IV 727.1 / 1523.932 696.832 / 1523.932 15.927 / 15.927 Albumin 5% 250 ml @ 500 mls/hr 500 / 500 IV [facility] Rx#:[id number] Magnesium Sulfate / D5w 1 gm In 100 / 100 100 ml @ 50 mls/hr IV [facility] Rx#:[id number] Nss + 20Meq KCl 20 meq In 1,000 0 / 0 ml @ 50 mls/hr IV .Q20H [facility] Rx #:[id number] Phenylephrine/Nss 25 mg In 250 127.1 / 427.265 300.165 / 427.265 15.927 / 15.927 ml @ 0.5 MCG/KG/MIN 16.2 mls/hr IV .[id number] [facility] Rx#:[id number] Plasma-Lyte A 1,000 ml @ 100 396.667 / 396.667 mls/hr IV .Q10H [facility] Rx#: [id number] IV Perioperative 1000 / 1000 Oral 100 / 100 Intake (Blood Product) Amt 310 / 310 Packed Cells, Leukoreduced 310 / 310 Unit [id number] Output: Estimated Blood Loss 250 / 250 Urine Amount (Catheter) 230 / 445 215 / 445 60 / 60 Swan/Indwelling 230 / 445 215 / 445 60 / 60 Other: Weight 54 kg 54.8 kg Weight Measurement Method [facility] Diagnostic Findings Echocardiogram 05/28/2024: Unchanged from prior study in 04/18/2024 LVEF 65% No wall motion abnormalities Mild LVH Grade I Diastolic dysfunction Mild aortic valve sclerosis without stenosis Moderate Mitral regurg Mild TR EK05-28-2024 Sinus with PACs No active ischemia noted
--- NOTE | 2024-05-29 09:38 | Operative Report ---
Post Operative Report Pre & Post Diagnosis Operation Date: 05/28/24 12:00 Pre-Op Diagnosis: Closed, traumatic, displaced left intertrochanteric hip fracture. Post-Op Diagnosis: Closed, traumatic, displaced left intertrochanteric hip fracture. I identified the patient and participated in the time-out.: Yes Procedure Operation Date: 05/28/24 12:00 Actual Procedures p Open reduction and cephalomedullary fixation left intertrochanteric hip fracture. Physician directed fluoroscopy less than 1 hour(Left) - Yuniel Johnson DO 1. Open reduction and cephalomedullary nailing left intertrochanteric hip fracture 2. Physician directed fluoroscopy less than 1 hour 3. Closed management left ulnar styloid wrist fracture Surgeon Yuniel Johnson DO Picker Tender Dougie Cancino PA-C Estimated Blood Loss 250 Findings Consistent with Post-Op Diagnosis Fluids see anesthesia record Specimens none Drains none Anesthesia Type General Complications intraoperative hypotension requiring transfer to the ICU Disposition Accompanied Patient To Recovery: Yes Disposition: Surgical ICU Indications This is an 83-year-old female who presents to the emergency department after a fall that occurred this morning while she was ambulating to the bathroom. During her fall, she sustained a closed, traumatic, displaced left hip fracture. This is a basicervical variant. additionally, she sustained a right ulnar styloid fracture that has been placed into a [id number] wrist splint. I had a long discussion with the patient and her family that joins her at bedside about the nature of this injury. We discussed in great detail the pathoanatomy, pathophysiology, treatment options. Given the fact that the patient regularly ambulates without the use of significant assistance, and she has been very independent up until this point, I do recommend operative intervention for her left hip. This would be a closed versus open reduction and internal fixation using a cephalomedullary nail. Additionally, due to the minimally displaced nature of her ulnar styloid fracture, I recommend closed management of this injury. I discussed in great detail the risk of the surgery with the family and the patient. We discussed the risks include but are not limited to: , loss of limb, infection, hardware complication, hardware failure, hardware prominence, need for additional surgery, nonunion, malunion, blood loss requiring transfusion, iatrogenic injury to bone/nerve/tendon/vessel. I explained the risks of the surgery include sooner time to bearing weight and improved ability to ambulate. If the patient were to proceed with nonoperative management, I do think that she puts herself at a very high risk of complications from immobility including but not limited to sacral decubitus ulcers, pneumonia. After thorough discussion of the risks and benefits of both operative and nonoperative care, the patient, and her family through a shared decision-making model have opted for operative management of her left hip. Patient has been seen and cleared by the cardiology team prior to operative intervention Description of Procedure After informed consent was obtained, the patient was correctly identified in the preoperative holding suite, the operative site was marked with the surgeon's initials, the date of surgery, and the word yes. The patient was then taken to the operative suite. The department of anesthesia administered general anesthesia. The patient was transferred from the [facility] to the operative table. All bony prominences were well-padded. Briefing and timeout was performed. All implants were available and sterile at the time. BRIEFING AND DEBRIEFING: Pre and post operative briefing and debriefing was performed. Introductions were made, goals of the procedure were discussed, questions and concerns were addressed. The operative site markings were identified and appropriate. A time [id number] was performed, the patient's correct identity was confirmed and the correct o perative sites were identified. The patients pre-operative antibiotic dosing and administration was confirmed along with other SCIP measures. The team was polled at the completion of the surgery and all team members were in agreement that the procedure was without complication, the counts are correct, the wound class was identified and suggestions for improvement were shared. The patient was positioned appropriately on the fracture table. all bony prominences were well padded and the perineal post was secured in place. Prior to prepping we used the fracture table to pull traction and internally rotate the hip such that the fracture was appropriately reduced, at this point we felt it would be necessary to perform an open reduction during the case as the calcar did not reduce anatomically. We then prepped and draped the operative leg in standard sterile fashion using chloraprep and a shower curtain drape. we marked out the anatomy of the proximal femur and began by making a 3 cm incision approximately 2 cm proximal to the tip of the greater trochanter and in line with the femoral shaft. we dissected bluntly through the gluteal fascia using curved wasserman scissors. Then we introduce d the starting wire into the proximal femur after finding an appropriate starting point just medial to the tip of the greater trochanter and in line with the femoral shaft. Over this wire, we used the opening reamer and then introduced the ball tipped guide wire. the guide wire ended quite anteriorly in the distal femur and we were concerned about the patients exaggerated femoral bow and as such we opted to proceed with an short nail. We seleted the largest diameter nail available to us - a [employer] TFNA 130 degree, 12mm x 170mm nail. we attached this nail to the insertion handle,Once this was in an appropraite position we installed the targeting guide for the lag bolt. Considering the calcar was still not perfectly reduced, we legnthened the incision on the lateral side of the femur and dissected bluntly using a yi anteriorly over the femoral neck and then carefully placed a bone hook over the medial neck and pulled this such that the calcar was reduced. We then positioned the targeting guide for the lag bolt such that we were satisfied with its trajectory on the AP and Lateral XRs and advaced the wire into the subchondral bone of the femoral head so as to minimize the tip to apex distance. We measured this guide wire, selected a 95mm screw, drilled for the screw and then placed the screw all while continuing to hold the calcar reduced. we then compressed through the jig while the bone hook was in place and were satisfied with the compression. the proximal locking bolt for the lag screw was locked and gently loosened to allow controlled collapse. we then used the targeting guide to place a single static interlocking screw distally. The bone hook and insertion handle were then removed and final fluoroscopic images were obtained. we then irrigated all wounds and closed in a layered fashion using 0-vicyl in the fascia deep followed by 2-0 vicryl in the subcutaneous tissue and we closed the skin with nestor. acticoat flex, 4x4s and tegaderms were placed on all wounds. during closure, we were notified by anesthesia that the patient had developed hypotension. Her volume was being repleted, but we expeditiously moved her to her hospital bed, and transferred her to the ICU The patient tolerated this procedure well and was transferred to the ICU in stable condition. Prior to transportation to ICU, all counts were correct and a briefing was performed at the end of the case. Physician-directed fluoroscopy for less than one hour was performed by myself to verify fracture alignment and the safe placement of all internal fixation. The final images saved to PACs showed views demonstrating satisfactory alignment of the fracture and stable internal fixation. Implant verification was performed by myself by reading and confirming the implant information on the packaging with the team before the sterile implants were opened. I was present for the entire procedure. Plan: Weight bearing status: as tolerated left lower extremity Wound care: keep dressings clean and dry Range of motion: as tolerated of the left hip. Keep left wrist brace on. VTE Prophylaxis: Okay from an orthopedic standpoint Antibiotics: perioperative Ancef Pain Control: Multimodal Vitamin D Replacement: 19.6. Will be repleted Discharge Plan: pending clinical stability and evaluation by physical therapy and Occupational Therapy Follow Up: she will follow-up with myself in 2 to 3 weeks for wound check and staple removal. I attest to the content of the Intraoperative Record and any orders documented therein. Any exceptions are noted below.
[2024-05-29 10:30] LABS: Hematocrit (blood only) 27.4 % (37.0-47.0); Hemoglobin 9.3 g/dl (12.0-16.0)
--- NOTE | 2024-05-29 13:33 | Hospitalist Progress Note ---
Date of Service May 29, 2024 Assessment & Plan (1) Asymptomatic hypertensive urgency: Plan Pt is an 83yoF with PMHx significant for TIA, PVD, valvular heart disease, moderate MR, hypertension, hyperlipidemia, migraine, recurrent UTIs, prediabetes, past tobacco abuse admitted with a traumatic left hip fracture and left wrist fracture secondary to mechanical fall. Left Hip fracture Left wrist Facture Fall Pt with traumatic mechanical fall Left hip and femur x-ray noting "Acute comminuted intertrochanteric fracture" Wrist xray noting the following: Possible avulsion fracture of the styloid process of the ulna Orthopedics consulted, recommended or stated the following: - Status post "Closed reduction and cephalomedullary fixation left intertrochanteric hip fracture on 05/29/24" - patient requiring ICU transfer for lower blood pressures and pressor support. -Per orthopedics, Dr Johnson:"Patient may bear weight as tolerated on the left lower and left upper extremities. She will likely require physical therapy and Occupational Therapy. We will determine an appropriate discharge plan once PT has had a chance to see and assess the patient. she will follow with me in 2 to 3 weeks for dressing change and staple removal." PT/OT once medically stable Continue to monitor Hypotension Currently requiring pressor support in the ICU. Hold home antihypertensives (lisinopril, metoprolol) Wean pressors as tolerated Continue to monitor Transient A-fib patient with noted episodes of atrial fibrillation on admission Consult was placed to cardiology for preop clearance -per Cardiology more like sinus with APCs Cardiology also consulted with postop hypotension Metoprolol on hold as noted above Continue to monitor on telemetry Acute Hypoxemic respiratory failure following narcotic administration at the ER also noted postop VBG, chest x-ray all unremarkable oxygen supplementation as needed continue to monitor Vitamin D deficiency Continue with supplementation, increased to 50mcg Acute on chronic Anemia Hgb drop from 12 to 9 AM anemia panel, folate, b12 Continue to monitor continue other home meds as ordered Diet: HH DVT prophylaxis. SCDs re: scalp hematoma and multiple contusions Full code Dispo: per PT?OT once medically stable Admission and Anticipated Discharge Date Admission Date: May 28, 2024 Subjective patient was seen in the a.m. Sitting up in bed and resting comfortably Per nursing was still on pressors at that time and they were trying to wean her off Noted that she does not have an appetite and has not been able to eat, does not that she is passing gas Review of Systems Review of Systems: All systems reviewed & are unremarkable except as noted in Subjective Physical Exam Physical Exam: General: Alert Psych: Appropriate mood and affect HEENT: NC/AT CV: RRR Resp: no increased effort of breathing Abdomen: Soft, nontender Extremities: no edema in lower extremities Results & Data Results & Data Vital Signs (Past 12 Hours) Vital Signs Temp Pulse Pulse Resp BP BP Pulse Ox 05/29/24 13:00 94 H 22 107/45 L 100 05/29/24 12:30 90 18 100/39 L 100 05/29/24 12:00 112 H 16 88/57 L 96 05/29/24 12:00 36.6 C 05/29/24 11:44 05/29/24 11:30 97 H 18 89/59 L 96 05/29/24 11:15 93 H 18 99/45 L 98 05/29/24 11:00 90 20 113/46 L 100 05/29/24 10:45 91 H 25 H 114/46 L 100 05/29/24 10:30 95 H 24 99/42 L 90 05/29/24 10:21 117 H 21 121/45 L 98 05/29/24 10:19 115 H 96/43 L 05/29/24 10:15 123 H 107/50 L 05/29/24 10:14 121 H 87/41 L 05/29/24 10:12 124 H 78/41 L 05/29/24 10:06 123 H 25 H 91/40 L 05/29/24 10:03 91/40 L 05/29/24 10:00 102/51 L 05/29/24 09:52 110 H 18 120/56 L 95 05/29/24 09:45 99 H 21 113/53 L 100 05/29/24 09:45 97 H 22 113/53 L 99 05/29/24 09:30 87 19 97/38 L 100 05/29/24 09:30 92 H 14 97/38 L 100 05/29/24 09:15 103 H 19 106/47 L 100 05/29/24 09:00 88 19 112/50 L 100 05/29/24 08:48 91 H 16 130/45 L 100 05/29/24 08:45 96 H 22 119/45 L 100 05/29/24 08:30 85 16 113/47 L 90 05/29/24 08:21 89 17 111/53 L 90 05/29/24 08:15 92 H 23 101/51 L 94 05/29/24 08:09 87 15 73/34 L 94 05/29/24 08:00 36.7 C 05/29/24 08:00 90 15 80/34 L 97 05/29/24 07:51 90 18 77/39 L 92 05/29/24 07:30 115 H 15 95/44 L 94 05/29/24 07:00 111 H 21 120/53 L 95 05/29/24 06:30 92 H 109/46 L 05/29/24 06:00 90 14 105/42 L 95 05/29/24 05:30 89 107/46 L 05/29/24 05:00 36.5 C 98 H 14 108/45 L 98 05/29/24 04:43 90 100/44 L 05/29/24 04:00 96 H 18 107/44 L 98 05/29/24 03:30 100 H 111/44 L 05/29/24 03:15 90 115/47 L 05/29/24 03:00 99 H 16 111/44 L 99 05/29/24 03:00 36.8 C 84 18 112/45 L 99 05/29/24 02:55 36.8 C 87 17 108/45 L 98 05/29/24 02:47 89 110/47 L 05/29/24 02:33 87 101/44 L 05/29/24 02:00 87 19 104/42 L 96 05/29/24 01:54 36.5 C 104 H 14 93/45 L 96 Pulse Ox O2 Del Method O2 Flow Rate 05/29/24 13:00 Nasal Cannula 2 05/29/24 12:30 Nasal Cannula 2 05/29/24 12:00 Nasal Cannula 2 05/29/24 12:00 05/29/24 11:44 96 05/29/24 11:30 Nasal Cannula 2 05/29/24 11:15 Nasal Cannula 2 05/29/24 11:00 Nasal Cannula 2 05/29/24 10:45 Nasal Cannula 2 05/29/24 10:30 Room Air 05/29/24 10:21 Room Air 05/29/24 10:19 05/29/24 10:15 05/29/24 10:14 05/29/24 10:12 05/29/24 10:06 05/29/24 10:03 05/29/24 10:00 05/29/24 09:52 Room Air 05/29/24 09:45 Room Air 05/29/24 09:45 Room Air 05/29/24 09:30 Nasal Cannula 2 05/29/24 09:30 Nasal Cannula 2 05/29/24 09:15 Nasal Cannula 2 05/29/24 09:00 Nasal Cannula 2 05/29/24 08:48 Nasal Cannula 2 05/29/24 08:45 Nasal Cannula 2 05/29/24 08:30 Nasal Cannula 2 05/29/24 08:21 Room Air 05/29/24 08:15 Room Air 05/29/24 08:09 Room Air 05/29/24 08:00 05/29/24 08:00 Room Air 05/29/24 07:51 Room Air 05/29/24 07:30 Room Air 05/29/24 07:00 Room Air 05/29/24 06:30 05/29/24 06:00 Room Air 05/29/24 05:30 05/29/24 05:00 Room Air 05/29/24 04:43 05/29/24 04:00 Nasal Cannula 1 05/29/24 03:30 05/29/24 03:15 05/29/24 03:00 Nasal Cannula 1 05/29/24 03:00 Nasal Cannula 1 05/29/24 02:55 05/29/24 02:47 05/29/24 02:33 05/29/24 02:00 Room Air 1 05/29/24 01:54 Diagnostic Findings Hip X-Ray 05/28/24 00:00 FL hip LT 2-3V CLINICAL HISTORY: L TROCH NAIL COMPARISON STUDY: Femur radiographs of same day FLUOROSCOPY TIME: 200 seconds FLUOROSCOPY IMAGES: 6 EXPOSURE DOSE: 30.04 mGy FINDINGS: Status post placement of a trochanteric nail with medullary jacqueline fixating the acute left proximal femoral fracture. Satisfactory alignment with expected postoperative soft tissue swelling and deep tissue air. IMPRESSION: Fluoroscopic assistance as above. ACT 112: Negative or not required by law. Electronically signed by: Mathew Bustos M.D. 05/29/2024 7:09 AM Abdomen/Pelvis CT 05/28/24 04:18 EXAM: CT abd pelvis wo con CLINICAL HISTORY: fall , left hip pain , eval for trauma TECHNIQUE: Non-contrast CT of the abdomen and pelvis was performed, with the following protocol: axial images, and reconstructed coronal and sagittal images. No intravenous contrast was administered. One of the following dose reduction techniques was utilized for this exam: Automated exposure control, adjustment of the mA and/or kV according to patient size, and use of iterative reconstruction. COMPARISON: NONE. FINDINGS: Abdomen: Liver: Normal in size, shape, and density. a 1.1cm simple cyst is noted in the 4th segment and another simple cyst 0.8cm in the right lobe. Gallbladder and Biliary System: The gallbladder is normal in size and shape. No wall thickening, pericholecystic fluid, or gallstones were identified. The intrahepatic biliary ducts and the proximal CBD are prominent Pancreas: Pancreatic head, body, and tail are visualized and appear normal in size and density. No pancreatic masses or calcifications were noted. Spleen: Normal in size, shape, and density. No splenic lesions or masses were identified. Kidneys and Adrenal Glands: Both kidneys are normal in size, shape, and position. Cortical thickness is within normal limits. No renal calculi or hydronephrosis. Adrenal glands are unremarkable. Pelvis: Urinary Bladder: Normal in contour and wall thickness. No intraluminal lesions. Uterus: Normal in size and contour. No masses or abnormal thickening. Ovaries: Not well visualized but no gross abnormalities noted. Vagina: prosthetic ring is noted in the vagina and adjacent to the cervix Peritoneal and Retroperitoneal Structures: No free fluid or abnormal fluid collections were identified within the abdomen or pelvis. No lymphadenopathy was noted. Bowel: A pouch-like structure measures about 7cm and contains an air-fluid level is noted adjacent to the 2nd duodenum segment suggesting a duodenal diverticula or other prominent bowel loop. Sigmoid and descending colon extensive diverticulosis without signs of perforation No evidence of bowel obstruction or wall thickening. Bones and Soft Tissues: A left displaced intertrochanteric fracture is noted. The femoral head is still in the acetabulum. Bone density is reduced Severe spondylotic changes in the lumbar spine. IMPRESSION: 1. A left displaced intertrochanteric fracture is noted. 2. Severe spondylotic changes in the lumbar spine. without acute fractures 3. A pouch-like structure measures about 7cm and contains an air-fluid level is noted adjacent to the 2nd duodenum segment suggesting a duodenal diverticula or other prominent bowel loop. 4. prosthetic ring is noted in the vagina and adjacent to the cervix 5. Sigmoid and descending colon extensive diverticulosis. Electronically signed by Audra Warner 05-28-2024 06:[address] 05/28/24 04:18 EXAM: CT cervical spine wo con CLINICAL HISTORY: fall , left hip pain , eval for trauma TECHNIQUE: CT scan of the cervical spine was performed without administration of contrast material. Contiguous axial images were obtained from the skull base to the upper thoracic spine. Coronal and sagittal reformatted images were also reviewed. One of the following dose-reduction techniques was utilized for this exam. Automated exposure control, adjustment of the mA and/or kV according to patient size, and use of iterative reconstruction. DLP: 1504.20 mGy-cm. COMPARISON: CT 10/23/2016. FINDINGS: Vertebrae: The vertebral bodies are normal in height and alignment. Mild retrolisthesis of C6 over C7 and mild anterolisthesis of C7 over T1 vertebra. No evidence of acute fracture or dislocation. No signs of lytic or sclerotic lesions. Normal configuration of the posterior elements. Multilevel anterior osteophytes were noted Intervertebral Discs: Multilevel intervertebral disc space narrowing is noted. Multilevel posterior marginal osteophytes were noted. Facet Joints: Multilevel facet joint arthrosis was noted. Spinal Canal: The spinal canal is normal in caliber. No evidence of spinal canal stenosis. The cervical spinal cord is normal in size and signal without evidence of compression or intrinsic abnormality. Neural Foramina: Multilevel moderate neural foramina stenosis is noted. Prevertebral Soft Tissues: The prevertebral soft tissues are normal in thickness without evidence of mass or abnormal fluid collection. Additional Findings: Bilateral extensive carotid bifurcation calcification is noted. IMPRESSION: 1. No interval changes in comparison with CT on 10/23/2016. 2. Moderate-severe spondylotic changes were noted. 3. No acute fracture or dislocation was noted. Electronically signed by Audra Warner 05-28-2024 06:06 AM Chest X-Ray 05/28/24 04:18 EXAM: XR chest 1V portable CLINICAL HISTORY: PT FELL BACK ON TO DRESSER, PT HIT HEAD, PAIN IN LT HIP/ LT WRIST KFK TECHNIQUE: An X-ray image of the chest is obtained in AP projection. COMPARISON: 04/17/2024 FINDINGS: Pulmonary Parenchyma: Both Lungs are Mildly hyperinflated. Coarse prominent bronchovascular markings and interstitial prominence seen in both lungs. No pneumothorax. No evidence of consolidation, collapse, or focal opacities. No pulmonary nodules are identified. No evidence of pleural effusion or pleural thickening. Heart and Mediastinum: Heart size and shape are normal. No mediastinal widening or masses. Both rajendra appear prominent. Bony Thorax: Old post-traumatic changes seen in left 3rd rib. Soft Tissues: Soft tissues overlying the chest wall are unremarkable. IMPRESSION: 1. Imaging findings are likely due to chronic obstructive pulmonary disease. 2. Old post-traumatic changes seen in left 3rd rib 3. No pneumothorax. 4. No significant interval changes. Electronically signed by Audra Warner 05-28-2024 05:[address] 05/28/24 04:18 EXAM: CT head/brain wo con CLINICAL HISTORY: fall , left hip pain , eval for trauma TECHNIQUE: Axial non-contrast CT scan of the brain was performed from the skull base to the high parietal region. One of the following dose reduction techniques were utilized for this exam: Automated exposure control, adjustment of the mA and/or kV according to patient size, use of iterative reconstruction. COMPARISON: CT brain dated 04/18/2024. FINDINGS: Brain Parenchyma: There are diffuse ill-defined iso-to hypodense areas noted in the subcortical white matter bilaterally, suggestive of microvascular ischemic changes and old lacunar infarcts. Normal attenuation of the cerebellum, and brainstem. No evidence of hemorrhage, or mass effect. Ventricular System: The ventricular system, cortical sulci and basal cisterns are prominent consistent with senile changes. Subarachnoid Spaces: No evidence of subarachnoid hemorrhage or extra-axial fluid collections. Sinuses: Clear paranasal sinuses. No evidence of sinusitis or mucosal thickening. Mastoid Air Cells: Clear mastoid air cells. No evidence of mastoiditis. Skull and Meninges: Normal skull morphology. IMPRESSION: 1. No acute cerebral abnormality. 2. The above-mentioned findings are suggestive of microvascular ischemic changes and senile changes. 3. Unchanged study. Electronically signed by Audra Warner 05-28-2024 05:26 AM Hip/Pelvis X-Ray 05/28/24 04:18 EXAM: XR hip LT 2V w pelvis CLINICAL HISTORY: PT FELL BACK ON TO DRESSER, PT HIT HEAD, PAIN IN LT HIP/ LT WRIST KFK TECHNIQUE: X-ray images of the left hip joints and pelvis were obtained in an anteroposterior (AP) and lateral projections. COMPARISON: No prior studies available for comparison. FINDINGS: Pelvic Bones: Generalized reduced bone density. Lucent line is seen in the neck and intertrochanteric region of the left femur likely fracture. Hip Joints: Lucent line is seen in the neck and intertrochanteric region of the left femur likely fracture. Mild to moderate degenerative changes are seen in the left hip joint is evident by osteophytes and reduced left hip joint space. Symphysis Pubis: Symphysis pubis is normal and intact. No evidence of separation or widening. Soft Tissues: Soft tissue swelling is seen along the left hip Additional Findings: No other significant abnormalities noted. . IMPRESSION: 1. Fracture of the intertrochanteric and neck region of the left femur. 2. CT scan is advised for further evaluation. Disclaimer: A subtle bone abnormality or fracture may not be readily apparent on X-rays, thus clinical correlation and further imaging including follow-up CT, MRI, or follow-up X-rays are advised as needed. [facility] ER was called at [phone] at 4:57 AM [employer], 05/28/2024 and Crystal Nurse was informed regarding the presence of Significant Medical Findings in the report. Electronically signed by Audra Warner 05-28-2024 06:06 AM Wrist X-Ray 05/28/24 04:20 EXAM: XR wrist LT min 3V routine CLINICAL HISTORY: PT FELL BACK ON TO DRESSER, PT HIT HEAD, PAIN IN LT HIP/ LT WRIST KFK TECHNIQUE: X-ray images of the Left wrist were obtained in anteroposterior (AP), lateral, and oblique projections. COMPARISON: No prior studies available for comparison. FINDINGS: Bone Structure: A thin sclerotic line is seen in the Scaphoid bone. A bony chip is seen at the ulnar styloid process raising the possibility of an avulsion fracture. Osteopenia. Joint Spaces: Moderate degenerative changes are seen at first carpometacarpal and scaphotrapezium joints as evident by osteophytes, and reduced joint space with sclerosis. Soft Tissues: Mild soft tissue swelling was seen around the left wrist. Additional Findings: None. IMPRESSION: 1. A thin sclerotic line is seen in the Scaphoid bone, Would recommend clinical correlation for focal tenderness and dedicated views. 2. A bony chip is seen at the ulnar styloid process raising the possibility of an avulsion fracture. 3. Moderate degenerative changes seen at first carpometacarpal and scaphotrapezium joint. Disclaimer: A subtle bone abnormality or fracture may not be readily apparent on X-rays, thus clinical correlation and further imaging including follow-up CT, MRI, or follow-up X-rays are advised as needed. [facility] ER was called at [phone] at 4:57 AM [employer], 05/28/2024 and Crystal Nurse was informed regarding the presence of Important Medical Findings in the report. Electronically signed by Audra Warner 05-28-2024 06:03 AM Femur X-Ray 05/28/24 13:17 EXAM: Radiographs of the Left Femur 2 Views INDICATION: Fracture. TECHNIQUE: Frontal and lateral views of the left femur. COMPARISON: No relevant prior studies available. FINDINGS: Bones/joints: There is a comminuted intertrochanteric fracture of the left femur with rotation and impaction. The femur is otherwise intact. T mild to moderate tricompartment spurring at the knee. The bones are demineralized. Soft tissues: No abnormality noted. No radiopaque foreign body noted. Other findings: Moderate to large amounts of stool in the rectal vault. IMPRESSION: 1. Acute comminuted intertrochanteric fracture. The femur is otherwise intact. 2. Moderate to large amounts of stool in the rectal vault. ACT 112: Negative or not required by law. Electronically signed by Hanny Montalvo 05-28-2024 3:07 PM Hip X-Ray 05/28/24 20:05 Exam(s): XR LEFT HIP EXAM: XR Left Hip With Pelvis When Performed, 2 or 3 Views CLINICAL HISTORY: Reason for exam: Post-Operative implant position. TECHNIQUE: Two or three views of the left hip with pelvis when performed. COMPARISON: Intra-Op images same-day IMPRESSION: Status post left hip ORIF with anatomic alignment. No hardware complication. Electronically signed by: Ryan Forbes MD 05/28/24 22:46 PM Abdomen/Pelvis CT 05/28/24 23:32 EXAM: CT abd pelvis wo con CLINICAL HISTORY: r/o retroperiotneal bleed TECHNIQUE: Non-contrast CT of the abdomen and pelvis was performed, with the following protocol: axial images, and reconstructed coronal and sagittal images. No intravenous contrast was administered. One of the following dose reduction techniques was utilized for this exam: Automated exposure control, adjustment of the mA and/or kV according to patient size, and use of iterative reconstruction. COMPARISON: Comparison is made with a previous CT dated 05/28/2024 performed earlier. FINDINGS: Abdomen: Liver: Normal in size, shape, and density. Small hepatic hypodensities, likely cysts. Gallbladder and Biliary System: The gallbladder is normal in size and shape. No wall thickening, pericholecystic fluid, or gallstones were identified. The intrahepatic biliary ducts and the proximal CBD are prominent. Pancreas: Pancreatic head, body, and tail are visualized and appear normal in size and density. No pancreatic masses or calcifications were noted. Spleen: Normal in size, shape, and density. No splenic lesions or masses were identified. Kidneys and Adrenal Glands: Both kidneys are normal in size, shape, and position. Cortical thickness is within normal limits. No renal calculi or hydronephrosis. Adrenal glands are unremarkable. Pelvis: Urinary Bladder: Collapsed, with Swan's bulb in situ. Uterus: Normal in size and contour. No masses or abnormal thickening. A ring is noted in the vagina/cervix Ovaries: No gross abnormalities were noted. Peritoneal and Retroperitoneal Structures: Mild free fluid is seen in the pelvis, slightly hyperdense. No lymphadenopathy was noted. Extensive atherosclerotic calcifications of the aortic hodgson. Bowel: Unchanged pouch-like structure adjacent to the 2nd part of the duodenum suggests a duodenal diverticula/prominent bowel loop. The visualized large bowel loops are normal in caliber and appearance. No evidence of bowel obstruction or wall thickening. Colonic diverticulosis. Bones and Soft Tissues: Osteopenia. Spondylotic changes in the lumbar spine, with reduced central vertebral body height of L2 and mild anterolisthesis of L4 over the L5. Post-surgical changes in the left hip, with fixation of the previously seen fracture. Extensive fat stranding and a 31 x 36 mm hematoma are seen along the surgical subcutaneous planes of the left hip. Extensive air locules are seen along the subcutaneous region and in the gluteal muscles and extending into the pelvic cavity, likely post-surgical change. Additional: Visualized lung bases show fibrotic changes with honeycombing. IMPRESSION: 1. Mild slightly hyperdense fluid collection in the pelvis(mildly increased). 2. No retroperitoneal hematoma. 3. Post-surgical changes in the left hip, with fixation of the previously seen fracture. 4. Extensive fat stranding and a 31 x 36 mm hematoma along the surgical subcutaneous planes of the left hip. 5. Extensive air locules are seen along the subcutaneous region and in the gluteal muscles and extending into the pelvic cavity, likely post-surgical change. 6. Stable spondylotic changes in the lumbar spine, with a reduced central vertebral body height of L2 and mild anterolisthesis of L4 over the L5. 7. The rest of the findings have been stable since the last scan. Electronically signed by Audra Warner 05-29-2024 01:45 AM
[2024-05-29] MEDS ORDERED: POLYETHYLENE (MIRALAX) 17 GM PACK PO PRN (14:14)
[2024-05-29] MEDS: oxyCODONE HCL IR 5 MG TAB (IMMEDIATE RELEASE) PO PRN (16:34)
[2024-05-29 17:12] LABS: Hematocrit (blood only) 23.5 % (37.0-47.0); Hemoglobin 8.1 g/dl (12.0-16.0)
[2024-05-29] MEDS: fentaNYL citrate PF 100 MCG/2 ML VIAL IV PRN (19:48)
[2024-05-29] MEDS: ACETAMINOPHEN 500 MG TAB PO PRN (20:29)
[2024-05-29] MEDS: DOCUSATE SODIUM 100 MG CAP PO SCH (20:30)
[2024-05-29 21:25] LABS: Hematocrit (blood only) 22.9 % (37.0-47.0); Hemoglobin 7.9 g/dl (12.0-16.0)
[2024-05-30 04:59] LABS: Hemoglobin 7.3 g/dl (12.0-16.0); Mean Corpuscular Hemoglobin 30.7 pg (25.0-34.0); Mean Corpuscular Hgb Conc 33.2 g/dL (32.0-36.0); Mean Corpuscular Volume 92.4 fL (80.0-100.0); Platelet Count 83 K/uL (130-400); RDW Coefficient of Variation 14.8 % (11.5-14.5); RDW Standard Deviation 49.8 fL (36.4-46.3); Red Blood Count 2.38 M/uL (4.20-5.40); White Blood Count 9.75 K/ul (4.8-10.8)
[2024-05-30 05:37] LABS: Folate (Folic Acid),Ser orPlas 17.58 ng/ml (>5.38)
[2024-05-30 05:40] LABS: Anion Gap 3 (3-11); Blood Urea Nitrogen 16 mg/dl (6-23); Calcium 7.5 mg/dl (8.6-10.3); Carbon Dioxide 28 mmol/L (21-32); Chloride 101 mmol/L (98-107); Creatinine Clr Calc Pharmacy 66.2 ml/min; Ferritin 72.7 ng/ml (8-388); Glucose 105 mg/dl (70-99(Fasting)); Iron < 10 mcg/dl (35-150); Magnesium 2.1 mg/dl (1.7-2.4); Phosphorus 1.8 mg/dl (2.5-4.9); Potassium 3.9 mmol/L (3.5-5.1); Sodium 132 mmol/L (136-145); Unsaturated Iron Binding Cap 157 mcg/dl (155-355)
[2024-05-30] MEDS ORDERED: POTASSIUM PHOS 3 MMOL/1 ML INFUSION IV STA (06:53)
[2024-05-30] MEDS: POT PHOSPHATE MONOBASIC W/ SOD TAB PO SCH (07:55)
[2024-05-30] MEDS: CHOLECALCIFEROL 25 MCG (1000 UNITS) TAB PO SCH (07:57)
--- NOTE | 2024-05-30 08:10 | Orthopedic Progress Note ---
Date of Service May 30, 2024 Assessment & Plan (1) Fracture of left hip: (2) Hypertension: (3) Transient confusion: (4) Fall: (5) Asymptomatic hypertensive urgency: (6) Confusion: (7) Brain TIA: (8) Fracture of ulnar styloid: Plan Patient is postoperative day #2 status post open reduction internal fixation with cephalomedullary nail of the left intertrochanteric hip fracture and closed management of left ulnar styloid fracture. Patient was admitted to the ICU after operative intervention due to soft blood pressures following operative intervention. She has since stabilized and has not require pressure support since yesterday. Her pain is well-controlled at this point. Patient may bear weight as tolerated on the left lower and left upper extremities. She will likely require physical therapy and Occupational Therapy. We will determine an appropriate discharge plan once PT has had a chance to see and assess the patient. she will follow with me in 2 to 3 weeks for dressing change and staple removal. continue with wrist brace for left wrist. Admission and Anticipated Discharge Date Admission Date: May 28, 2024 Subjective Patient doing well postoperative day #2 status post cephalomedullary nailing of intertrochanteric hip fracture. Patient is out of bed to chair. Has remained off blood pressure support Physical Exam Physical Exam: Dressings clean dry and intact. Sensation tact light touch L2-S1. EHL/FHL/GSC/TA motor intact. Foot warm and well-perfused Results & Data Vital Signs (Past 12 Hours) Vital Signs Temp Pulse Resp BP Pulse Ox O2 Del Method O2 Flow Rate 05/30/24 07:18 130 H 21 128/55 L 98 Nasal Cannula 2 05/30/24 07:00 113 H 15 123/44 L 96 Nasal Cannula 2 05/30/24 06:03 134 H 17 100 05/30/24 06:00 123/46 L 05/30/24 06:00 123/46 L 05/30/24 05:54 138 H 25 H 79 L 05/30/24 05:03 121 H 17 100 05/30/24 05:00 135/67 05/30/24 04:54 110 H 21 100 05/30/24 04:00 108 H 16 100 05/30/24 04:00 104/44 L 05/30/24 04:00 104/44 L 05/30/24 03:12 36.7 C 94 H 19 98 05/30/24 03:00 96/40 L 05/30/24 02:48 107 H 17 98 Nasal Cannula 2 05/30/24 02:00 117 H 16 98 05/30/24 02:00 126/59 L 05/30/24 02:00 126/59 L 05/30/24 02:00 126/59 L 05/30/24 01:15 118 H 28 H 98 05/30/24 00:06 121 H 19 98 05/30/24 00:00 113/68 05/29/24 23:42 105 H 17 92 05/29/24 23:06 96 H 22 98 05/29/24 23:00 109/45 L 05/29/24 23:00 118 H 05/29/24 22:39 99 H 17 99 05/29/24 22:27 96 H 18 99 05/29/24 22:00 101/39 L 05/29/24 22:00 101/39 L 05/29/24 21:48 103 H 18 100 05/29/24 21:30 110/50 L 05/29/24 21:27 99 H 23 100 05/29/24 21:00 81/65 L 05/29/24 21:00 119 H 21 100 05/29/24 20:30 127 H 25 H 100 05/29/24 20:30 129/54 L 05/29/24 20:09 Nasal Cannula 2
--- NOTE | 2024-05-30 10:10 | Critical Care Progress Note ---
Date of Service May 30, 2024 Assessment & Plan (1) Hypotension: Plan: Reason Critically Ill: 83-year-old female presents to the ICU postop following closed reduction and fixation of the left intertrochanteric hip fracture, for which she was found to be hypotensive and recovery requiring phenylephrine drip. Neuro - [facility] ICU: Negative History of TIA/carotid artery stenosisno issue at this time. Plavix on hold due to surgical procedure. Status improved at this time. Cardiac - Hypotension Resolved. Likely multifactorial postoperative 83-year-old female with blood loss. Has been weaned off the Duncan-Synephrine. She is tachycardic. Will restart her p.o. metoprolol today. Blood pressures have maintained. Can consider restarting her lisinopril depending her response to the metoprolol. Continue to watch closely as she has required blood transfusion status post surgical invention. H&H has remained stable recently. HLDcontinue statin Respiratory - Asthmasaturating well on room air. Not bronchospastic on exam today. GI - Progress diet as tolerated. RENAL/LYTES - Creatinine within normal limits. Monitor routine BMPs and replete electrolytes as indicated - Strict I's and O's ENDO - No history of diabetes or thyroid disease. She is currently euglycemic. ICU hyperglycemic protocol HEME - EBL 250 per OR note. Did require 1 unit PRBCs earlier in her stay. Her H&H is lower, but has stabilized. Likely represents oozing postsurgically. Continue to monitor and transfuse if needed Ortho Status post closed reduction of cephalomedullary fixation left trochanteric hip fracture with physician directed fluoroscopy for closed, traumatic, displaced left intertrochanteric hip fracture following a fall at home - Management per Ortho. Admitted to ICU for management of hypotension following procedure ID - White count has resolved. The patient has not been febrile. No indication for antibiotic coverage at this point. LINES/IV ACCESS - Peripheral IVs. DVT PROPHYLAXIS - SCDs, hold anticoagulation following surgery Thank you for allowing us to participate in the care of this patient. Patient is stable for downgrade from the ICU at this time. (2) Hyperlipidemia: (3) Degenerative disc disease, cervical: (4) Asthma: (5) Fracture of left hip: (6) Injury of wrist, left: Admission and Anticipated Discharge Date Admission Date: May 28, 2024 Subjective Patient seen and evaluated bedside. She is feeling well other than occasional episodes of spasm with pain in the postoperative area. She is breathing well and without complaints of chest pain, dizziness, or lightheadedness. Pain is well-controlled this time Review of Systems Review of Systems: As per subjective. Physical Exam Physical Exam: VITAL SIGNS - Vital signs and nursing notes were reviewed. GENERAL - 83-year-old female appearing her stated age who is in no acute distress. Communicates well with provider and answers questions appropriately. SKIN - LEFT sided hip dressing clean, dry, and intact. HEAD - NC/AT. EYES - PERRL with EOMI bilaterally. Sclera anicteric. NOSE - Midline and without cyanosis. MOUTH/OROPHARYNX - Without perioral cyanosis. NECK - Neck with FROM. LUNGS - Chest wall symmetric without accessory muscle use, intercostals retractions, or central cyanosis. Normal vesicular breath sounds CTA B/L. No wheezes, rales, or rhonchi appreciated. CARDIAC - RRR with S1/S2. No murmur, rubs, or gallops appreciated. ABDOMEN - Abdominal contour flat without pulsations or visible masses. BS normoactive all four quadrants. No tenderness, palpable masses, hepatosplenomegaly, or ascites noted. EXTREMITIES - No clubbing or peripheral cyanosis. No pretibial edema present. +3/5 radial and dorsalis pedis pulses palpated throughout. NEUROLOGIC - Cranial nerves II through XII grossly intact. PSYCH - A&Ox3 and cooperates fully with examiner. Pt is very pleasant and interacts well with examiner. Results & Data Results & Data Vital Signs (Past 12 Hours) Vital Signs Temp Pulse Resp BP Pulse Ox O2 Del Method O2 Flow Rate 05/30/24 09:00 117 H 20 119/46 L 96 Room Air 05/30/24 08:33 112 H 23 112/50 L 98 Room Air 05/30/24 08:00 120 H 20 98/48 L 94 Room Air 05/30/24 07:20 124 H 16 128/55 L 94 Room Air 05/30/24 07:18 130 H 21 128/55 L 98 Nasal Cannula 2 05/30/24 07:00 113 H 15 123/44 L 96 Nasal Cannula 2 05/30/24 06:03 134 H 17 100 05/30/24 06:00 123/46 L 05/30/24 06:00 123/46 L 05/30/24 05:54 138 H 25 H 79 L 05/30/24 05:03 121 H 17 100 05/30/24 05:00 135/67 05/30/24 04:54 110 H 21 100 05/30/24 04:00 108 H 16 100 05/30/24 04:00 104/44 L 05/30/24 04:00 104/44 L 05/30/24 03:12 36.7 C 94 H 19 98 05/30/24 03:00 96/40 L 05/30/24 02:48 107 H 17 98 Nasal Cannula 2 05/30/24 02:00 117 H 16 98 05/30/24 02:00 126/59 L 05/30/24 02:00 126/59 L 05/30/24 02:00 126/59 L 05/30/24 01:15 118 H 28 H 98 05/30/24 00:06 121 H 19 98 05/30/24 00:00 113/68 05/29/24 23:42 105 H 17 92 05/29/24 23:06 96 H 22 98 05/29/24 23:00 109/45 L 05/29/24 23:00 118 H 05/29/24 22:39 99 H 17 99 05/29/24 22:27 96 H 18 99 Coding Level of Care Code 45423 SUB INP/OBS CARE 2/35MIN Diagnoses Hypotension I95.9 Hyperlipidemia E78.5 Degenerative disc disease, cervical M50.30 Asthma J45.909 Fracture of left hip S72.002A Injury of wrist, left S69.92XA
[2024-05-30 11:14] LABS: Hemoglobin 7.4 g/dl (12.0-16.0)
[2024-05-30] MEDS: oxyCODONE HCL IR 5 MG TAB (IMMEDIATE RELEASE) PO PRN (11:17)
[2024-05-30] MEDS: METOPROLOL TARTRATE 1 MG/ML VIAL IV STA (11:47)
--- NOTE | 2024-05-30 13:59 | Hospitalist Progress Note ---
Date of Service May 30, 2024 Assessment & Plan (1) Asymptomatic hypertensive urgency: Plan Pt is an 83yoF with PMHx significant for TIA, PVD, valvular heart disease, moderate MR, hypertension, hyperlipidemia, migraine, recurrent UTIs, prediabetes, past tobacco abuse admitted with a traumatic left hip fracture and left wrist fracture secondary to mechanical fall. Left Hip fracture Left wrist Facture Fall Pt with traumatic mechanical fall Left hip and femur x-ray noting "Acute comminuted intertrochanteric fracture" Wrist xray noting the following: Possible avulsion fracture of the styloid process of the ulna Orthopedics consulted, recommended or stated the following: - Status post "Closed reduction and cephalomedullary fixation left intertrochanteric hip fracture on 05/29/24" - patient requiring ICU transfer for lower blood pressures and pressor support. -Per orthopedics, Dr Johnson:"Patient may bear weight as tolerated on the left lower and left upper extremities. She will likely require physical therapy and Occupational Therapy. We will determine an appropriate discharge plan once PT has had a chance to see and assess the patient. she will follow with me in 2 to 3 weeks for dressing change and staple removal." PT/OT once medically stable Continue to monitor 05/30- BP improved. Downgraded from the ICU Hypotensionresolved Was requiring pressor support in the ICU. Held home antihypertensives (lisinopril, metoprolol) Weaned pressors as tolerated Currently downgraded, hypotension resolved Acute on Chronic Anemia Acute Blood Loss Anemia Iron Deficiency Anemia Vitamin b12 Deficiency Downtrending hgb to 7 range currently Pt with blood consent signed perioperatively Iron levels noted to be low, IV Venofer 200mg x1 on 05/30, continue with po ferrous sulfate daily B12 levels low, started on Vit b12 supplements Continue to follow hgb, , transfuse prn for hgb <7 Transient A-fib patient with noted episodes of atrial fibrillation on admission Consult was placed to cardiology for preop clearance -per Cardiology more like sinus with APCs Cardiology also consulted with postop hypotension Metoprolol on hold as noted above Continue to monitor on telemetry Acute Hypoxemic respiratory failure following narcotic administration at the ER also noted postop VBG, chest x-ray all unremarkable oxygen supplementation as needed continue to monitor Vitamin D deficiency Continue with supplementation, increased to 50mcg continue other home meds as ordered Diet: HH DVT prophylaxis. SCDs re: scalp hematoma and multiple contusions Full code Dispo: per PT/OT once medically stable Admission and Anticipated Discharge Date Admission Date: May 28, 2024 Subjective patient was seen in the a.m. was still down in the ICU Was off of pressors States that she is sometimes embarrassed with her episodes of confusion Per nursing staff collection of fluid on left hip Review of Systems Review of Systems: All systems reviewed & are unremarkable except as noted in Subjective Physical Exam Physical Exam: General: Alert Psych: Appropriate mood and affect HEENT: NC/AT CV: RRR Resp: no increased effort of breathing Abdomen: Soft, nontender Extremities: left hip with nestor and noted swelling Results & Data Results & Data Vital Signs (Past 12 Hours) Vital Signs Temp Pulse Resp BP Pulse Ox O2 Del Method O2 Flow Rate 05/30/24 13:00 90 23 104/43 L 100 Nasal Cannula 2 05/30/24 12:09 87 96/45 L 05/30/24 12:03 94 H 18 96/45 L 100 Nasal Cannula 2 05/30/24 12:00 36.5 C 05/30/24 12:00 88 21 93/41 L 100 Nasal Cannula 2 05/30/24 11:52 153 H 22 114/46 L 88 L Room Air 05/30/24 11:48 125 H 25 H 111/47 L 91 Room Air 05/30/24 11:47 128 H 111/47 L 05/30/24 11:00 126 H 20 157/59 H 93 Room Air 05/30/24 09:57 111 H 19 123/48 L 93 Room Air 05/30/24 09:00 117 H 20 119/46 L 96 Room Air 05/30/24 08:33 112 H 23 112/50 L 98 Room Air 05/30/24 08:00 120 H 20 98/48 L 94 Room Air 05/30/24 07:20 124 H 16 128/55 L 94 Room Air 05/30/24 07:18 130 H 21 128/55 L 98 Nasal Cannula 2 05/30/24 07:00 36.6 C 05/30/24 07:00 113 H 15 123/44 L 96 Nasal Cannula 2 05/30/24 06:03 134 H 17 100 05/30/24 06:00 123/46 L 05/30/24 06:00 123/46 L 05/30/24 05:54 138 H 25 H 79 L 05/30/24 05:03 121 H 17 100 05/30/24 05:00 135/67 05/30/24 04:54 110 H 21 100 05/30/24 04:00 108 H 16 100 05/30/24 04:00 104/44 L 05/30/24 04:00 104/44 L 05/30/24 03:12 36.7 C 94 H 19 98 05/30/24 03:00 96/40 L 05/30/24 02:48 107 H 17 98 Nasal Cannula 2 05/30/24 02:00 117 H 16 98 05/30/24 02:00 126/59 L 05/30/24 02:00 126/59 L 05/30/24 02:00 126/59 L
[2024-05-30] MEDS: IRON SUCROSE 200 MG in SODIUM CHLORIDE 0.9% 100 ML IV ONE (23:33)
[2024-05-31 07:47] LABS: Hematocrit (blood only) 21.1 % (37.0-47.0); Hemoglobin 7.2 g/dl (12.0-16.0); Mean Corpuscular Hemoglobin 31.9 pg (25.0-34.0); Mean Corpuscular Hgb Conc 34.1 g/dL (32.0-36.0); Mean Corpuscular Volume 93.4 fL (80.0-100.0); Mean Platelet Volume 9.4 fL (9.4-12.4); Platelet Count 95 K/uL (130-400); RDW Coefficient of Variation 14.8 % (11.5-14.5); Red Blood Count 2.26 M/uL (4.20-5.40); White Blood Count 10.29 K/ul (4.8-10.8)
[2024-05-31 08:06] LABS: BUN Creatinine Ratio 34.1 (10-20); Calcium 7.9 mg/dl (8.6-10.3); Creatinine Clr Calc Pharmacy 75.3 ml/min; Magnesium 1.9 mg/dl (1.7-2.4); Phosphorus 1.9 mg/dl (2.5-4.9); Potassium 3.8 mmol/L (3.5-5.1)
[2024-05-31] MEDS: FERROUS SULFATE 325 MG TAB PO SCH (08:18)
[2024-05-31] MEDS: CYANOCOBALAMIN (B-12) 500 MCG TABLET PO SCH (08:18)
--- NOTE | 2024-05-31 09:39 | Orthopedic Progress Note ---
Date of Service May 31, 2024 Assessment & Plan (1) Fracture of left hip: (2) Hypertension: (3) Transient confusion: (4) Fall: (5) Asymptomatic hypertensive urgency: (6) Confusion: (7) Brain TIA: (8) Fracture of ulnar styloid: Plan Patient is postoperative day #3 status post open reduction internal fixation with cephalomedullary nail of the left intertrochanteric hip fracture and closed management of left ulnar styloid fracture. Patient was admitted to the ICU after operative intervention due to soft blood pressures following operative intervention. She has since stabilized and has not require pressure support since yesterday. she has since been transferred to the floor. Her pain is well-controlled at this point. Patient may bear weight as tolerated on the left lower and left upper extremities. She will likely require physical therapy and Occupational Therapy. We will determine an appropriate discharge plan once PT has had a chance to see and assess the patient. she will follow with me in 2 to 3 weeks for dressing change and staple removal. continue with wrist brace for left wrist. Admission and Anticipated Discharge Date Admission Date: May 28, 2024 Subjective Patient transferred from ICU to the floor yesterday. Notes that she is doing well. Her hip is still "sore". Physical Exam Physical Exam: Dressings clean dry and intact. Sensation tact light touch L2-S1. EHL/FHL/GSC/TA motor intact. Foot warm and well-perfused Results & Data Vital Signs (Past 12 Hours) Vital Signs Temp Pulse Pulse Resp BP Pulse Ox O2 Del Method 05/31/24 07:41 36.7 C 118 H 17 128/66 98 Nasal Cannula 05/31/24 02:42 36.8 C 108 H 18 138/60 94 Nasal Cannula 05/30/24 22:45 36.7 C 116 H 18 136/62 94 Nasal Cannula 05/30/24 21:56 100 H O2 Flow Rate 05/31/24 07:41 1 05/31/24 02:42 05/30/24 22:45 2 05/30/24 21:56
[2024-05-31] MEDS: METOPROLOL SUCC 25MG EXT REL TAB PO STA (09:48)
[2024-05-31] MEDS ORDERED: oxyCODONE HCL IR 5 MG TAB (IMMEDIATE RELEASE) PO PRN (19:36)
--- NOTE | 2024-05-31 19:39 | Hospitalist Progress Note ---
Date of Service May 31, 2024 Assessment & Plan (1) Asymptomatic hypertensive urgency: Plan Ms. Garcia is an 83yoF with PMHx significant for TIA, PVD, valvular heart disease, moderate MR, hypertension, hyperlipidemia, migraine, recurrent UTIs, prediabetes, past tobacco abuse admitted with a traumatic left hip fracture and left wrist fracture secondary to mechanical fall. Patient's course complicated by post op hypotension requiring ICU transfer briefly on pressors. #Left Hip fractur s/p closed reduction 05/28 #Left wrist Facture #Mechanical Fall Pt with traumatic mechanical fall Left hip and femur x-ray noting "Acute comminuted intertrochanteric fracture" Wrist xray noting the following: Possible avulsion fracture of the styloid process of the ulna Orthopedics consulted, recommended or stated the following: - Status post "Closed reduction and cephalomedullary fixation left intertrochanteric hip fracture on 05/29/24" - patient requiring ICU transfer for lower blood pressures and pressor support. -Per orthopedics, Dr Johnson:"Patient may bear weight as tolerated on the left lower and left upper extremities. She will likely require physical therapy and Occupational Therapy. We will determine an appropriate discharge plan once PT has had a chance to see and assess the patient. she will follow with me in 2 to 3 weeks for dressing change and staple removal." PT/OT: plan for [facility] Continue to monitor 05/30- BP improved. Downgraded from the ICU #Hypotensionresolved Was requiring pressor support in the ICU. Held home antihypertensives (lisinopril, metoprolol) Weaned pressors as tolerated Currently downgraded, hypotension resolved #Acute on Chronic Anemia #Acute Blood Loss Anemia #Iron Deficiency Anemia #Vitamin b12 Deficiency Downtrending hgb to 7 range currently Pt with blood consent signed perioperatively Iron levels noted to be low, IV Venofer 200mg x1 on 05/30, continue with po fe rrous sulfate daily B12 levels low, started on Vit b12 supplements Continue to follow hgb, , transfuse prn for hgb <7 #Transient A-fib patient with noted episodes of atrial fibrillation on admission Consult was placed to cardiology for preop clearance -per Cardiology more like sinus with APCs Cardiology also consulted with postop hypotension Continue to monitor on telemetry Increased home metoprolol 37.5 mg BID #Acute Hypoxemic respiratory failure following narcotic administration at the ER also noted postop VBG, chest x-ray all unremarkable oxygen supplementation as needed continue to monitor #Vitamin D deficiency Continue with supplementation, increased to 50mcg continue other home meds as ordered Diet: HH DVT prophylaxis. SCDs re: scalp hematoma and multiple contusions Full code Dispo:[facility] Admission and Anticipated Discharge Date Admission Date: May 28, 2024 Subjective NAEO Doing much better today Reports some pain but nothing out of control Physical Exam Constitutional: WD/WN, vitals as above Respiratory: normal respiratory effort, lungs clear to auscultation Cardiovascular: irregularly irregular Results & Data Results & Data Vital Signs (Past 12 Hours) Vital Signs Temp Pulse Pulse Resp BP Pulse Ox O2 Del Method 05/31/24 19:27 36.6 C 75 18 116/62 99 Nasal Cannula 05/31/24 16:00 36.6 C 110 H 18 135/74 96 Nasal Cannula 05/31/24 15:01 104 H 05/31/24 10:33 36.6 C 102 H 17 122/63 93 Nasal Cannula 05/31/24 08:00 96 H 05/31/24 07:41 36.7 C 118 H 17 128/66 98 Nasal Cannula O2 Flow Rate 05/31/24 19:27 05/31/24 16:00 1 05/31/24 15:01 05/31/24 10:33 05/31/24 08:00 05/31/24 07:41 1 Laboratory Results Short CBC 05/31/24 Range/Units 07:18 WBC 10.29 (4.8-10.8) K/ul Hgb 7.2 L (12.0-16.0) g/dl Hct 21.1 L (37.0-47.0) % Plt Count 95 L (130-400) K/uL BMP 05/31/24 07:18 Sodium 133 L Potassium 3.8 Chloride 101 Carbon Dioxide 29 BUN 15 Creatinine 0.44 L Glucose 105 H Calcium 7.9 L Medications Administered Home Medications Medication Instructions Recorded Confirmed Last Taken albuterol sulfate 90 mcg/actuation 2 puff inhalation QID PRN 06/27/18 05/28/24 03/31/21 aerosol inhaler (ProAir HFA) Shortness Of Breath vitamins A,C,X-hodu-cvspfx 2,148 1 tab PO BID 06/27/18 05/28/24 05/27/24 20:00 mcg-113 mg-45 mg-17.4 mg tablet (PreserVision AREDS) cholecalciferol (vitamin D3) 25 25 mcg PO QAM 04/01/21 05/28/24 05/27/24 08:00 mcg (1,000 unit) capsule (Vitamin D3) faricimab-svoa 6 mg/0.05 mL 6 mg intravitreal UD 10/03/23 05/28/24 04/26/24 intravitreal solution (Vabysmo) metoprolol succinate 25 mg 25 mg PO BID #60 tabs 11/13/23 05/28/24 05/27/24 20:00 tablet,extended release 24 hr d-mannose 500 mg capsule 500 mg PO BID 12/12/23 05/28/24 05/27/24 08:00 rosuvastatin 40 mg tablet 40 mg PO QAM 12/12/23 05/28/24 05/27/24 08:00 ondansetron HCl 4 mg tablet 4 mg PO Q6H PRN NAUSEA/VOMITING 12/14/23 05/28/24 Unknown #10 tabs lisinopril 5 mg tablet 5 mg PO DAILY #30 tabs 04/18/24 05/28/24 05/27/24 08:00 clopidogrel 75 mg tablet 75 mg PO DAILY 05/28/24 05/28/24 1 Day Ago ~05/27/24 Active Medications Generic Name Dose Route Start Last Admin Trade Name Freq PRN Reason Stop Dose Admin Cyanocobalamin 1,000 mcg 05/31/24 09:00 05/31/24 08:18 Cyanocobalamin (B-12) 500 Mcg Tablet PO 06/30/24 08:59 1,000 mcg QAM CLAUDETTE Administration Docusate Sodium 100 mg 05/29/24 21:00 05/31/24 08:17 Docusate Sodium 100 Mg Cap PO 06/28/24 20:59 100 mg BID CLAUDETTE Administration Ferrous Sulfate 325 mg 05/31/24 09:00 05/31/24 08:18 Ferrous Sulfate 325 Mg Tab PO 06/30/24 08:59 325 mg QAM CLAUDETTE Administration Lisinopril 5 mg 05/28/24 09:00 05/28/24 09:27 Lisinopril 5 Mg Tab PO 06/27/24 08:59 5 mg DAILY CLAUDETTE Administration Multivitamins/Minerals 1 tab 05/28/24 09:00 05/31/24 08:17 Cerovite Adv Formula Tab PO 06/27/24 08:59 1 tab DAILY CLAUDETTE Administration Rosuvastatin Calcium 40 mg 05/28/24 09:00 05/31/24 08:17 Rosuvastatin Calcium 20 Mg Tab PO 06/27/24 08:59 40 mg QAM CLAUDETTE Administration Vitamin D 50 mcg 05/30/24 09:00 05/31/24 08:17 Cholecalciferol 25 Mcg (1000 Units) Tab PO 06/29/24 08:59 50 mcg QAM CLAUDETTE Administration
[2024-05-31] MEDS: METOPROLOL SUCC 25MG EXT REL TAB PO SCH (20:26)
[2024-05-31] MEDS: ACETAMINOPHEN 500 MG TAB PO SCH (20:30)
[2024-06-01 07:48] LABS: Hematocrit (blood only) 20.3 % (37.0-47.0); Mean Corpuscular Hemoglobin 31.4 pg (25.0-34.0); Mean Corpuscular Hgb Conc 34.5 g/dL (32.0-36.0); Mean Platelet Volume 9.9 fL (9.4-12.4); Platelet Count 137 K/uL (130-400); RDW Coefficient of Variation 14.6 % (11.5-14.5); RDW Standard Deviation 47.2 fL (36.4-46.3); Red Blood Count 2.23 M/uL (4.20-5.40); White Blood Count 9.56 K/ul (4.8-10.8)
[2024-06-01 07:51] LABS: BUN Creatinine Ratio 32.1 (10-20); Calcium 8.2 mg/dl (8.6-10.3); Creatinine Clr Calc Pharmacy 62.5 ml/min; Potassium 3.5 mmol/L (3.5-5.1)
[2024-06-01] MEDS ORDERED: SODIUM CHLORIDE 0.9% 100 ML IV PRN (07:53)
[2024-06-01] MEDS ORDERED: SODIUM CHLORIDE 0.9% 50 ML IV PRN (07:53)
--- NOTE | 2024-06-01 09:12 | Orthopedic Progress Note ---
Date of Service June 01, 2024 Assessment & Plan (1) Fracture of left hip: (2) Hypertension: (3) Transient confusion: (4) Fall: (5) Asymptomatic hypertensive urgency: (6) Confusion: (7) Brain TIA: (8) Fracture of ulnar styloid: Plan Patient is postoperative day #4 status post open reduction internal fixation with cephalomedullary nail of the left intertrochanteric hip fracture and closed management of left ulnar styloid fracture. Patient was admitted to the ICU after operative intervention due to soft blood pressures following operative intervention. She has since stabilized and has not require pressure support recently. she has since been transferred to the floor. Her pain is well-controlled at this point. Patient may bear weight as tolerated on the left lower and left upper extremities. She will likely require physical therapy and Occupational Therapy. We will determine an appropriate discharge plan once PT has had a chance to see and assess the patient. she will follow with me in 2 to 3 weeks for dressing change and staple removal. continue with wrist brace for left wrist. patient concerned about hospital delirium, nursing will continue to reorient. Admission and Anticipated Discharge Date Admission Date: May 28, 2024 Subjective patient notes she feels comfortable, but is starting to worry about her mental state as she has been in the hospital for so long. Physical Exam Physical Exam: AAOx3 Dressings clean dry and intact. Sensation tact light touch L2-S1. EHL/FHL/GSC/TA motor intact. Foot warm and well-perfused Results & Data Vital Signs (Past 12 Hours) Vital Signs Temp Pulse Pulse Resp BP Pulse Ox O2 Del Method 06/01/24 07:46 36.6 C 98 H 19 121/61 97 Nasal Cannula 06/01/24 02:49 36.6 C 103 H 18 130/79 98 Nasal Cannula 05/31/24 22:55 36.5 C 88 18 94/57 L 97 Nasal Cannula 05/31/24 22:09 88 O2 Flow Rate 06/01/24 07:46 2.0 06/01/24 02:49 05/31/24 22:55 05/31/24 22:09
--- NOTE | 2024-06-01 16:53 | Hospitalist Progress Note ---
Date of Service June 01, 2024 Assessment & Plan (1) Asymptomatic hypertensive urgency: Plan Ms. Garcia is an 83yoF with PMHx significant for TIA, PVD, valvular heart disease, moderate MR, hypertension, hyperlipidemia, migraine, recurrent UTIs, prediabetes, past tobacco abuse admitted with a traumatic left hip fracture and left wrist fracture secondary to mechanical fall. Patient's course complicated by post op hypotension requiring ICU transfer briefly on pressors. Patient with ongoing atrial fibrillation postoperatively. Discussion with Son over risk benefits of anticoagulation. Son requesting further discussion with Cardiology. Will discuss DOAC with cardiology and additional follow up Plan for likely dispo tomorrow afternoon #Left Hip fractur s/p closed reduction 05/28 #Left wrist Facture #Mechanical Fall Pt with traumatic mechanical fall Left hip and femur x-ray noting "Acute comminuted intertrochanteric fracture" Wrist xray noting the following: Possible avulsion fracture of the styloid process of the ulna Orthopedics consulted, recommended or stated the following: - Status post "Closed reduction and cephalomedullary fixation left intertrochanteric hip fracture on 05/29/24" - patient requiring ICU transfer for lower blood pressures and pressor support. -Per orthopedics, Dr Johnson:"Patient may bear weight as tolerated on the left lower and left upper extremities. She will likely require physical therapy and Occupational Therapy. We will determine an appropriate discharge plan once PT has had a chance to see and assess the patient. she will follow with me in 2 to 3 weeks for dressing change and staple removal." PT/OT: plan for [facility] Continue to monitor 05/30- BP improved. Downgraded from the ICU #Hypotensionresolved Was requiring pressor support in the ICU. Held home antihypertensives (lisinopril, metoprolol) Weaned pressors as tolerated Currently downgraded, hypotension resolved #Acute on Chronic Anemia #Acute Blood Loss Anemia #Iron Deficiency Anemia #Vitamin b12 Deficiency Downtrending hgb to 7 range currently Pt with blood consent signed perioperatively Iron levels noted to be low, IV Venofer 200mg x1 on 05/30, continue with po ferrous sulfate daily B12 levels low, started on Vit b12 supplements Continue to follow hgb, , transfuse prn for hgb <7 #Transient A-fib patient with noted episodes of atrial fibrillation on admission Consult was placed to cardiology for preop clearance -per Cardiology more like sinus with APCs Cardiology also consulted with postop hypotension Continue to monitor on telemetry Increased home metoprolol 37.5 mg BID #Acute Hypoxemic respiratory failure following narcotic administration at the ER also noted postop VBG, chest x-ray all unremarkable oxygen supplementation as needed continue to monitor #Vitamin D deficiency Continue with supplementation, increased to 50mcg continue other home meds as ordered Diet: HH DVT prophylaxis. SCDs re: scalp hematoma and multiple contusions Full code Dispo:idspo [facility] Admission and Anticipated Discharge Date Admission Date: May 28, 2024 Subjective NAEO Reports feeling much improved from day prior, states that her pain is better controlled and she is not in any acute distress Still with seeming a fib on monitor rates better controlled Physical Exam Constitutional: WD/WN, vitals as above Respiratory: normal respiratory effort, lungs clear to auscultation Cardiovascular: irregularly irregular Gastrointestinal (Abdomen): normal bowel sounds, soft, nontender, no hepatosplenomegaly Results & Data Results & Data Vital Signs (Past 12 Hours) Vital Signs Temp Pulse Pulse Resp BP BP Pulse Ox 06/01/24 14:45 36.7 C 101 H 18 124/88 98 06/01/24 12:00 36.4 C L 96 H 126/56 L 96 06/01/24 11:51 36.4 C L 93 H 135/61 97 06/01/24 10:51 36.6 C 109 H 122/62 96 06/01/24 10:21 36.3 C L 94 H 111/65 96 06/01/24 10:06 36.8 C 96 H 20 103/55 L 100 06/01/24 09:51 36.6 C 91 H 116/57 L 96 06/01/24 09:26 06/01/24 08:00 105 H 06/01/24 07:46 36.6 C 98 H 19 121/61 97 O2 Del Method O2 Flow Rate 06/01/24 14:45 Nasal Cannula 2.0 06/01/24 12:00 2 06/01/24 11:51 2 06/01/24 10:51 2 06/01/24 10:21 2 06/01/24 10:06 2 06/01/24 09:51 2 06/01/24 09:26 Nasal Cannula 2 06/01/24 08:00 06/01/24 07:46 Nasal Cannula 2.0 Laboratory Results Short CBC 06/01/24 Range/Units 06:38 WBC 9.56 (4.8-10.8) K/ul Hgb 7.0 L (12.0-16.0) g/dl Hct 20.3 L* (37.0-47.0) % Plt Count 137 (130-400) K/uL BMP 06/01/24 06:38 Sodium 132 L Potassium 3.5 Chloride 100 Carbon Dioxide 26 BUN 17 Creatinine 0.53 L Glucose 105 H Calcium 8.2 L Medications Administered Home Medications Medication Instructions Recorded Confirmed Last Taken albuterol sulfate 90 mcg/actuation 2 puff inhalation QID PRN 06/27/18 05/28/24 03/31/21 aerosol inhaler (ProAir HFA) Shortness Of Breath vitamins A,C,D-jugb-jniubh 2,148 1 tab PO BID 06/27/18 05/28/24 05/27/24 20:00 mcg-113 mg-45 mg-17.4 mg tablet (PreserVision AREDS) cholecalciferol (vitamin D3) 25 25 mcg PO QAM 04/01/21 05/28/24 05/27/24 08:00 mcg (1,000 unit) capsule (Vitamin D3) faricimab-svoa 6 mg/0.05 mL 6 mg intravitreal UD 10/03/23 05/28/24 04/26/24 intravitreal solution (Vabysmo) d-mannose 500 mg capsule 500 mg PO BID 12/12/23 05/28/24 05/27/24 08:00 rosuvastatin 40 mg tablet 40 mg PO QAM 12/12/23 05/28/24 05/27/24 08:00 ondansetron HCl 4 mg tablet 4 mg PO Q6H PRN NAUSEA/VOMITING 12/14/23 05/28/24 Unknown #10 tabs clopidogrel 75 mg tablet 75 mg PO DAILY 05/28/24 05/28/24 1 Day Ago ~05/27/24 acetaminophen 500 mg tablet 1,000 mg (2 x 500 mg) PO Q8H #0 06/01/24 Unknown (Tylenol Extra Strength) tabs cyanocobalamin (vitamin B-12) 500 1,000 mcg (2 x 500 mcg) PO QAM #0 06/01/24 Unknown mcg tablet tabs docusate sodium 100 mg capsule 100 mg PO BID #0 caps 06/01/24 Unknown ferrous sulfate 325 mg (65 mg 325 mg PO QAM 30 days #0 tabs 06/01/24 Unknown iron) tablet,delayed release metoprolol succinate 25 mg 37.5 mg (1.5 x 25 mg) PO BID #0 06/01/24 Unknown tablet,extended release 24 hr tabs oxycodone 5 mg tablet 2.5 mg (1/2 x 5 mg) PO Q6H PRN #0 06/01/24 Unknown tabs Active Medications Generic Name Dose Route Start Last Admin Trade Name Freq PRN Reason Stop Dose Admin Acetaminophen 1,000 mg 05/31/24 19:45 06/01/24 11:34 Acetaminophen 500 Mg Tab PO 06/30/24 19:44 1,000 mg Q8H CLAUDETTE Administration Cyanocobalamin 1,000 mcg 05/31/24 09:00 06/01/24 08:28 Cyanocobalamin (B-12) 500 Mcg Tablet PO 06/30/24 08:59 1,000 mcg QAM [facility] Administration Docusate Sodium 100 mg 05/29/24 21:00 06/01/24 08:31 Docusate Sodium 100 Mg Cap PO 06/28/24 20:59 Not Given BID CLAUDETTE Ferrous Sulfate 325 mg 05/31/24 09:00 06/01/24 08:29 Ferrous Sulfate 325 Mg Tab PO 06/30/24 08:59 325 mg QAM CLAUDETTE Administration Lisinopril 5 mg 05/28/24 09:00 05/28/24 09:27 Lisinopril 5 Mg Tab PO 06/27/24 08:59 5 mg DAILY CLAUDETTE Administration Multivitamins/Minerals 1 tab 05/28/24 09:00 06/01/24 08:28 Cerovite Adv Formula Tab PO 06/27/24 08:59 1 tab DAILY CLAUDETTE Administration Rosuvastatin Calcium 40 mg 05/28/24 09:00 06/01/24 08:28 Rosuvastatin Calcium 20 Mg Tab PO 06/27/24 08:59 40 mg QAM CLAUDETTE Administration Vitamin D 50 mcg 05/30/24 09:00 06/01/24 08:27 Cholecalciferol 25 Mcg (1000 Units) Tab PO 06/29/24 08:59 50 mcg QAM CLAUDETTE Administration
[2024-06-01] MEDS: METOPROLOL SUCC 25MG EXT REL TAB PO SCH (20:26)
[2024-06-01] MEDS ORDERED: METOPROLOL SUCC 50MG EXT REL TAB PO SCH (21:00)
[2024-06-02] MEDS: CLOPIDOGREL BISULFATE 75 MG TAB PO SCH (08:07)
[2024-06-02] MEDS: METOPROLOL SUCC 50MG EXT REL TAB PO SCH (08:49)
[2024-06-02 09:15] LABS: Hematocrit (blood only) 24.7 % (37.0-47.0); Hemoglobin 8.4 g/dl (12.0-16.0); Mean Corpuscular Hemoglobin 30.5 pg (25.0-34.0); Mean Corpuscular Volume 89.8 fL (80.0-100.0); Mean Platelet Volume 9.2 fL (9.4-12.4); Platelet Count 156 K/uL (130-400); RDW Coefficient of Variation 16.7 % (11.5-14.5); RDW Standard Deviation 54.4 fL (36.4-46.3); Red Blood Count 2.75 M/uL (4.20-5.40); White Blood Count 7.07 K/ul (4.8-10.8)
--- NOTE | 2024-06-02 09:33 | Orthopedic Progress Note ---
Date of Service June 02, 2024 Assessment & Plan (1) Fracture of left hip: (2) Hypertension: (3) Transient confusion: (4) Fall: (5) Asymptomatic hypertensive urgency: (6) Confusion: (7) Brain TIA: (8) Fracture of ulnar styloid: Plan Patient is postoperative day #5 status post open reduction internal fixation with cephalomedullary nail of the left intertrochanteric hip fracture and closed management of left ulnar styloid fracture. Patient is doing very well and is slated to go to rehab today. Her mental status is much improved. Her pain is well-controlled. she will follow with me in 2 to 3 weeks for dressing change and staple removal. continue with wrist brace for left wrist. Admission and Anticipated Discharge Date Admission Date: May 28, 2024 Subjective Patient notes her pain continues to improve. She is slated to go to [facility] rehab today. Physical Exam Physical Exam: AAOx3 Dressings clean dry and intact. Sensation tact light touch L2-S1. EHL/FHL/GSC/TA motor intact. Foot warm and well-perfused Results & Data Vital Signs (Past 12 Hours) Vital Signs Temp Pulse Pulse Resp BP BP Pulse Ox 06/02/24 07:35 36.8 C 96 H 16 123/68 93 06/02/24 03:27 36.6 C 106 H 20 139/70 98 06/01/24 23:21 36.5 C 94 H 20 133/65 100 06/01/24 21:40 85 O2 Del Method O2 Flow Rate 06/02/24 07:35 Room Air 06/02/24 03:27 Nasal Cannula 2 06/01/24 23:21 Nasal Cannula 2 06/01/24 21:40
[2024-06-02 10:48] VITALS: BP 120/61; RESP 20; TEMP 98.1; O2SAT 95
--- NOTE | 2024-06-02 13:40 | Discharge Summary ---
Discharge Summary Date of Service June 02, 2024 Principal Dx & Hospital Course #1 = Principal Diagnosis (1) Asymptomatic hypertensive urgency: Plan Ms. Garcia is an 83yoF with PMHx significant for TIA, PVD, valvular heart disea se, moderate MR, hypertension, hyperlipidemia, migraine, recurrent UTIs, prediabetes, past tobacco abuse admitted with a traumatic left hip fracture and left wrist fracture secondary to mechanical fall. Patient's course complicated by post op hypotension requiring ICU transfer briefly on pressors. Patient with ongoing atrial fibrillation postoperatively. Discussion with Son over risk benefits of anticoagulation. Son requesting further discussion with Cardiology. However, with further discussion and review Dr Bains with Cardiology stated that the telemetry and the EKG are not a fib but rather sinus tachycardia with PACS and patient does not need DOAC. On day of discharge, patient eating well, working with PT and denies any chest pain/palpitations or uncontrolled pain. #Left Hip fractur s/p closed reduction 05/28 #Left wrist Facture #Mechanical Fall Pt with traumatic mechanical fall Left hip and femur x-ray noting "Acute comminuted intertrochanteric fracture" Wrist xray noting the following: Possible avulsion fracture of the styloid process of the ulna Orthopedics consulted, recommended or stated the following: - Status post "Closed reduction and cephalomedullary fixation left intertrochanteric hip fracture on 05/29/24" - patient requiring ICU transfer for lower blood pressures and pressor support. -Per orthopedics, Dr Johnson:"Patient may bear weight as tolerated on the left lower and left upper extremities. She will likely require physical therapy and Occupational Therapy. We will determine an appropriate discharge plan once PT has had a chance to see and assess the patient. she will follow with me in 2 to 3 weeks for dressing change and staple removal." PT/OT: plan for [facility] #Hypotensionresolved Was requiring pressor support in the ICU. Held home antihypertensives (lisinopril, metoprolol) Weaned pressors as tolerated Currently downgraded, hypotension resolved #Acute on Chronic Anemia #Acute Blood Loss Anemia #Iron Deficiency Anemia #Vitamin b12 Deficiency Downtrending hgb to 7 range currently Pt with blood consent signed perioperatively Iron levels noted to be low, IV Venofer 200mg x1 on 05/30, continue with po ferrous sulfate daily B12 levels low, started on Vit b12 supplements s/p transfusion 06/01 #Transient A-fib ruled out CARDIOLOGY 06/02 states that telemetry continues to be sinus with PACS not a fib, despite "brief" episode noted in documentation. Clarified no DOAC warranted. patient with noted episodes of atrial fibrillation on admission Consult was placed to cardiology for preop clearance Increased home metoprolol 50 mg BID #Acute Hypoxemic respiratory failure following narcotic administration at the ER also noted postop VBG, chest x-ray all unremarkable oxygen supplementation as needed continue to monitor #Vitamin D deficiency Continue with supplementation, increased to 50mcg Notes For Next Care Provider Medication Changes From Visit -Metoprolol was INCREASED to 50mg two times a day -Lisinopril was DISCONTINUED Admission HPI Per Admitting Provider History obtained from patient, family, and records. Medical history significant for TIA, PVD, valvular heart disease, moderate MR, hypertension, hyperlipidemia, migraine, recurrent UTIs, prediabetes, past tobacco abuse. Recent confinement last March 2024 for transient confusion in the setting of sleep deprivation. Patient woke up this morning to go to the bathroom. She found herself falling backwards and subsequently hitting her head without LOC. Achy left hip pain and bruising noted on the left hand and shoulder. Denies chest pain, SOB, syncope. Patient called son who later called EMS to patient's home. Son found left leg to be externally rotated upon arrival. Transient A-fib upon arrival at the ER as per RN. Highest SBP of 200s, transient O2 sats of 80s documented at the ER. 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 Admission Exam Per Admitting Provider GENERAL: Comfortable, pleasant, no respiratory distress SKIN: Normal color, warm HEENT: [place] palpebral conjunctivae, no ptosis, moist buccal mucosa, nasal cannula in place NECK : Supple, no tenderness CHEST : Decreased breath sounds, no tenderness HEART : RRR, systolic murmur ABDOMEN: no distention, nontender EXTREMITIES : Left hip tenderness, contusion left shoulder, tender ecchymosis left hand dorsal NEUROLOGIC : Coherent, no facial asymmetry, gait and stance not assessed Discharge Exam Constitutional WD/WN, vitals as above Respiratory normal respiratory effort, lungs clear to auscultation Cardiovascular irregular tachycardic Updated Medication List Medication Instructions Recorded Confirmed Type albuterol sulfate 90 mcg/actuation 2 puff inhalation QID PRN 06/27/18 05/28/24 History aerosol inhaler (ProAir HFA) Shortness Of Breath vitamins A,C,V-oejb-hjcqwj 2,148 1 tab PO BID 06/27/18 05/28/24 History mcg-113 mg-45 mg-17.4 mg tablet (PreserVision AREDS) cholecalciferol (vitamin D3) 25 25 mcg PO QAM 04/01/21 05/28/24 History mcg (1,000 unit) capsule (Vitamin D3) faricimab-svoa 6 mg/0.05 mL 6 mg intravitreal UD 10/03/23 05/28/24 History intravitreal solution (Vabysmo) d-mannose 500 mg capsule 500 mg PO BID 12/12/23 05/28/24 History rosuvastatin 40 mg tablet 40 mg PO QAM 12/12/23 05/28/24 History ondansetron HCl 4 mg tablet 4 mg PO Q6H PRN NAUSEA/VOMITING 12/14/23 05/28/24 Rx #10 tabs clopidogrel 75 mg tablet 75 mg PO DAILY 05/28/24 05/28/24 History acetaminophen 500 mg tablet 1,000 mg (2 x 500 mg) PO Q8H #0 06/01/24 Rx (Tylenol Extra Strength) tabs cyanocobalamin (vitamin B-12) 500 1,000 mcg (2 x 500 mcg) PO QAM #0 06/01/24 Rx mcg tablet tabs docusate sodium 100 mg capsule 100 mg PO BID #0 caps 06/01/24 Rx ferrous sulfate 325 mg (65 mg 325 mg PO QAM 30 days #0 tabs 06/01/24 Rx iron) tablet,delayed release oxycodone 5 mg tablet 2.5 mg (1/2 x 5 mg) PO Q6H PRN #0 06/01/24 Rx tabs metoprolol succinate 50 mg 50 mg PO BID #0 tabs 06/02/24 Rx tablet,extended release 24 hr Hospital Stay Data Consultations 05/28/24 05:59 ED Decision to Admit Stat 05/28/24 06:47 Consult Orthopedic Surgery Routine 05/28/24 07:34 Consult Cardiology Routine 05/28/24 20:05 Consult Cardiology Routine Consult Entrepreneurial Finance Professor Routine 06/01/24 16:53 Consult Cardiology Routine Procedures Performed Operation Date: 05/28/24 12:00 Actual Procedures p Closed reduction and cephalomedullary fixation left intertrochanteric hip fracture. Physician directed fluoroscopy less than 1 hour(Left) - Yuniel Johnson DO Diagnostic Imagining Performed 05/28/24 FL hip LT 2-3V Routine 05/28/24 04:18 CT abd pelvis wo con Stat CT cervical spine wo con Stat CT head/brain wo con Stat 05/28/24 23:32 CT Abdomen and Pelvis [CT abd pelvis wo con] Stat Pending Results Patient Have Any Pending Studies at Discharge: No Discharge Instructions Given to Patient (Per Discharging Provider) You were admitted due to fall and found to have a left hip fracture. You underwent repair on 05/28 Your course was complicated by low blood pressure and irregular heart rhythm Your medications were adjusted as follows: -Metoprolol was INCREASED to 50mg two times a day -Lisinopril was DISCONTINUED You were also started on a stool softener, iron tablet, and B12 supplement. Call 911 and go to the Emergency Room if: * You have tightness or pain in your chest that does not go away with rest or Nitroglycerin * You are very short of breath even with rest Call your doctor if any of the following symptoms or problems start or get worse: * Shortness of breath or difficulty breathing * Wake up at night short of breath * Chest pain * Cough * Swelling of your hands, fee, or legs * More fatigued or tired with your normal activity * Palpitations - sudden fast heart beats WEIGHT * Weigh yourself every morning after using the bathroom. * Use the same scale. * Wear the same amount of clothing. * Write your weight down on your chart. * Call your doctor if you gain more than 2-3 pounds in 1-2 days. MEDICATIONS * Use this discharge instruction sheet for instructions. * Take your medications at the time your doctor ordered. * Do not skip a dose of your medicines. * If you miss a dose of medicine, take as soon as possible, but DO NOT DOUBLE A DOSE. * Read your medicine information when you get home. * Know all of the side effects of your medicine. * Call your doctor's office if you have any side effects. * Be sure all of your doctors know what medicine and herbs you take (including cold, flu, and herbal medicine). * Pain Medicine: If you do not get relief from your pain, please call your doctor for help. Take the following with you to your follow-up doctor appointments: * Weight Chart * Medication List * List of questions Do not drink excessive alcohol, beer or wine. Total Time Total Time Spent Total Time Spent (In Minutes): 45
[2024-06-02] MEDS: CYCLOBENZAPRINE HCL 5 MG TAB PO STA (14:27)
[2024-06-02 15:13] VITALS: PULSE 83
== END 2024-06-02 16:38 | DRG 480 ==
LOC: ED 04:11 → SUATTDRO 05:58 → EDINP 05:58 → 1E 19:34 → 2S 05-30 20:37
DX: W18.30XA Fall on same level, unspecified, initial encounter; E55.9 Vitamin D deficiency, unspecified; J45.909 Unspecified asthma, uncomplicated; S72.142A Displaced intertrochanteric fracture of left femur, initial encounter for closed fracture; J96.01 Acute respiratory failure with hypoxia; Z86.73 Personal history of transient ischemic attack (TIA), and cerebral infarction without residual deficits; G43.909 Migraine, unspecified, not intractable, without status migrainosus; I16.0 Hypertensive urgency; S52.502A Unspecified fracture of the lower end of left radius, initial encounter for closed fracture; I95.81 Postprocedural hypotension; I10 Essential (primary) hypertension; S52.612A Displaced fracture of left ulna styloid process, initial encounter for closed fracture; S00.03XA Contusion of scalp, initial encounter; E53.8 Deficiency of other specified B group vitamins; D62 Acute posthemorrhagic anemia; Z87.440 Personal history of urinary (tract) infections; R73.03 Prediabetes; E78.5 Hyperlipidemia, unspecified; I73.9 Peripheral vascular disease, unspecified; Z87.891 Personal history of nicotine dependence; M50.30 Other cervical disc degeneration, unspecified cervical region; I34.0 Nonrheumatic mitral (valve) insufficiency